=== PATIENT | female | born 1950 | race Caucasian/White ===

== ENCOUNTER 2016-03-27 13:14 | Emergency (ER) | payer MEDICARE, OTHER ==
[2016-03-27] MEDS ORDERED: Thiamine IV* 100 MG, Folic Acid IV* 1 MG, Multiple Vitamin IV ADULT* 10 ML, Magnesium S... IV ONE ×5 (16:29)
[2016-03-27 19:15] LABS: Urine Bacteria Absent (Absent); Urine Bilirubin Negative (Negative); Urine Glucose Negative (Negative); Urine Nitrite Positive (Negative)
[2016-03-27 19:25] LABS: ALT 23 U/L (7-52); AST 76 U/L (13-39); Albumin 3.7 g/dL (3.2-5.2); Alkaline Phosphatase 87 U/L (34-104); Anion Gap 13 mmol/L (2-11); BUN/Creatinine Ratio 19.6 (8-20); Blood Urea Nitrogen 11 mg/dL (6-24); CO2 Carbon Dioxide 24 mmol/L (22-32); Calcium 9.1 mg/dL (8.6-10.3); Chloride 100 mmol/L (101-111); EGFR African American 139.7 (>60); EGFR Non-African American 108.6 (>60); Globulin 2.7 g/dL (2-4); Glucose 110 mg/dL (70-100); Potassium 3.3 mmol/L (3.5-5.0); Sodium 137 mmol/L (133-145); Total Protein 6.4 g/dL (6.4-8.9)
[2016-03-27 19:27] LABS: Benzodiazepine Urine Screen None Detected (None Detect)
[2016-03-27 19:49] LABS: Hematocrit 45 % (35-47); Hemoglobin 15.5 g/dl (12.0-16.0); Mean Corpuscular HGB Conc 34 g/dl (31-36); Mean Corpuscular Hemoglobin 39 pg (27-31); Mean Platelet Volume 8 um3 (7.4-10.4); Red Blood Count 3.99 10^6/ul (4.0-5.4); Red Cell Distribution Width 15 % (10.5-15); White Blood Count 8.1 10^3/ul (3.5-10.8)
[2016-03-27 19:50] LABS: Mean Corpuscular Volume 114 fL (80-97)
[2016-03-27 19:58] LABS: Acetaminophen < 15 mcg/mL; Alcohol 198 mg/dL (<10); Salicylate < 2.50 mg/dL (<30)
[2016-03-27 20:08] LABS: TSH (Thyroid Stimulating Horm) 2.35 mcIU/mL (0.34-5.60)
[2016-03-27] MEDS ORDERED: Acetaminophen TAB* 325 MG PO ONE (21:01)
[2016-03-27] MEDS ORDERED: Ondansetron INJ* 2 MG/ML VIAL IV ONE (21:40)
[2016-03-27] MEDS ORDERED: LORazepam INJ* 2 MG/ML 1 ML VIAL ONE (21:43)
[2016-03-27] MEDS ORDERED: Ondansetron INJ* 2 MG/ML VIAL ONE (21:45)
[2016-03-27] MEDS: LORazepam INJ* 2 MG/ML 1 ML VIAL IV ONE (21:55)
[2016-03-28] MEDS: LORazepam INJ* 2 MG/ML 1 ML VIAL IV ONE (01:32)
[2016-03-28] MEDS ORDERED: NS 0.9% 1000 ML* 1,000 ML IV ONE (04:25)
[2016-03-28] MEDS ORDERED: Ondansetron INJ* 2 MG/ML VIAL IV ONE (04:25)
[2016-03-28] MEDS ORDERED: Nicotine GUM* 2 MG PO PRN (06:44)
[2016-03-28] MEDS ORDERED: Nicotine GUM* 2 MG ONE (06:47)
--- NOTE | 2016-03-28 08:03 | RAD ---
INDICATION: Fall. Right-sided abdominal pain COMPARISON: None TECHNIQUE: Erect and supine views of the abdomen are submitted. FINDINGS: Bones: There are no acute bony findings. There is osteopenia with levoscoliosis. Soft tissues: The soft tissues appear normal. The psoas margins are sharp. Bowel gas pattern: Normal Calcifications: There are aortic calcifications. Other: The lung bases are clear. IMPRESSION: NO ACUTE DIAGNOSTIC FINDINGS.
--- NOTE | 2016-03-28 08:09 | PN ---
Progress Note - Progress Note Note: Checked with Social Service Liaison (Moshe Morales) Tiffany is still getting medical attention and not ready for evaluation to be completed.
[2016-03-28 11:19] VITALS: BP 144/109
--- NOTE | 2016-03-28 12:09 | ED ---
Caryn Juárez Matthew, scribed for Matty Vo MD on 03/27/16 at 1837 . Altered Mental Status - HPI Summary HPI Summary: A 66 y/o female presents to the ED with an altered mental status. She states that she's depressed and would like a mental health evaluation. She also fell 2 feet from her bed this morning. 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 The patient also states that she is sad. Her mother is struggling with alzheimer's disease and her dad is being unhelpful. The patient's dog also a month and a half ago, which has been really effecting her emotionally as she lives alone. - History Of Current Complaint Chief Complaint: ED Stated Complaint: EOTH FALL , MENTAL HEALTH Time Seen by Provider: 03/27/16 16:29 Hx Obtained From: Patient Onset/Duration: Still Present Timing: Constant Severity Initially: Moderate Severity Currently: Moderate Associated Signs And Symptoms: Positive: Recently Depressed - Allergies/Home Medications Allergies/Adverse Reactions: Allergies Allergy/AdvReac Type Severity Reaction Status Date / Time Doxycycline Allergy Intermediate Swelling Verified 12/26/15 21:09 Gabapentin [From Neurontin] Allergy Intermediate Swelling Verified 12/26/15 21: 09 Prednisone Allergy Intermediate Hives Verified 12/26/15 21:09 Home Medications: Home Medications Cholecalciferol [Vitamin D3 Super Strength] 2,000 unit PO DAILY 03/27/16 [ History Confirmed 03/27/16] Magnesium Oxide [Magnesium] 500 mg PO DAILY 03/27/16 [History Confirmed 03/27/16 ] Potassium Chlor TAB* [Klor Con ER TAB*] 20 meq PO BID 03/27/16 [History Confirmed 03/27/16] PMH/Surg Hx/FS Hx/Imm Hx Endocrine/Hematology History: Reports: Hx Anemia Denies: Hx Anticoagulant Therapy, Hx Blood Disorders, Hx Blood Transfusions, Hx Bone Marrow Disease, Hx Diabetes, Hx Systemic Lupus Erythematosus, Hx Sickle Cell Disease, Hx Thyroid Disease, Hx Unexplained Bleeding, Other Endocrine/ Hematological Disorders Cardiovascular History: Reports: Hx Angina, Hx Hypercholesterolemia - hx of, Hx Hypertension, Other Cardiovascular Problems/Disorders - carotid endarterectomy; hx of murmur Denies: Hx Aneurysm, Hx Angioplasty, Hx Auto Implanted Cardiovert Defib, Hx Cardiac Arrest, Hx Cardiomegaly, Hx Congenital Heart Disease, Hx Congestive Heart Failure, Hx Coronary Artery Disease, Hx Deep Vein Thrombosis, Hx Embolism , Hx Hypotension, Hx Pacemaker/ICD, Hx Peripheral Vascular Disease, Hx Rheumatic Fever, Hx Syncope, Hx Valvular Heart Disease Respiratory History: Reports: Hx Chronic Bronchitis, Hx Chronic Obstructive Pulmonary Disease (COPD), Hx Pneumonia, Other Respiratory Problems/Disorders - SMOAKER Denies: Hx Asthma, Hx Cystic Fibrosis, Hx Lung Cancer, Hx Pleural Effusion, Hx Pulmonary Edema, Hx Pulmonary Embolism, Hx Seasonal Allergies, Hx Sleep Apnea GI History: Reports: Hx Gastroesophageal Reflux Disease, Hx Irritable Bowel, Hx Ulcer, Other GI Disorders - adhesions Denies: Hx Cirrhosis, Hx Crohn's Disease, Hx Diverticulosis, Hx Gall Bladder Disease, Hx Gastrointestinal Bleed, Hx Hiatal Hernia, Hx Jaundice, Hx Obstructive Bowel, Hx Ileostomy, Hx Pyloric Stenosis History: Reports: Other Problems/Disorders - hx of UTI Denies: Hx Acute Renal Failure, Hx Benign Prostatic Hyperplasia, Hx Chronic Renal Failure, Hx Dialysis, Hx Kidney Infection, Hx Kidney Stones, Hx Renal Disease Musculoskeletal History: Reports: Hx Arthritis - osteo arthritis, Hx Orthopedic Injury - broken fingers, Other Musculoskeletal History - Past injury to R hand. Denies: Hx Back Problems, Hx Bursitis, Hx Congenital Bone Abnormalities, Hx Fibromyalgia, Hx Gout, Hx Osteoporosis, Hx Scoliosis, Hx Tendonitis Sensory History: Reports: Hx Contacts or Glasses, Hx Vision Problem, Other Sensory Impairments - floaters Denies: Hx Cataracts, Hx Eye Injury, Hx Eye Prosthesis, Hx Glaucoma, Hx Macular Degeneration, Hx Deafness, Hx Hearing Aid, Hx Hearing Problem Opthamlomology History: Reports: Hx Contacts or Glasses, Hx Vision Problem, Other Sensory Impairments - floaters Denies: Hx Cataracts, Hx Eye Injury, Hx Eye Prosthesis, Hx Glaucoma, Hx Macular Degeneration Neurological History: Reports: Hx Headaches - JUST RECENTLY, Hx Seizures Denies: Hx Dementia, Hx Developmental Delay, Hx Migraine, Hx Spinal Cord Injury, Hx Transient Ischemic Attacks (TIA), Other Neuro Impairments/Disorders Psychiatric History: Reports: Hx Anxiety, Hx Depression, Hx Panic Disorder - PTSD, Hx Post Traumatic Stress Disorder, Hx Inpatient Treatment, Hx Community Mental Health Tx, Hx Suicide Attempt, Hx Substance Abuse - ETOH, Other Psychiatric Issues/Disorders Denies: Hx Attention Deficit Hyperactivity Disorder, Hx Eating Disorder, Hx Schizophrenia, Hx Bipolar Disorder, Hx of Violent Episodes Against Others - Surgical History Surgery Procedure, Year, and Place: TONSILECTOMY ; APPENDECTOMY; X2 ; TUBAL LIGATION; CAROTID ENDERECTOMY (NO STENTINGS) Hx Anesthesia Reactions: Yes - EATHER CAUSED VOMITING - Immunization History Date of Tetanus Vaccine: PT STATES UNSURE Date of Influenza Vaccine: NONE Infectious Disease History: Unable to Obtain/Confirm Infectious Disease History: Denies: Hx Clostridium Difficile, Hx Hepatitis, Hx Human Immunodeficiency Virus (HIV), Hx Shingles, Hx Tuberculosis, Traveled Outside the [place] in Last 30 Days - Family History Known Family History: Positive: Other - father - colon ca, h/o ETOH abuse; mom- alzheimer's dz - Social History Alcohol Use: Daily Alcohol Amount: 3+ glasses 5-6x wk Hx Substance Use: No Substance Use Type: Reports: None Substance Use Comment - Amount & Last Used: pt aware of mental & physical risks of etoh, not willing/ready to change Hx Tobacco Use: Yes Smoking Status (MU): Heavy Every Day Tobacco Smoker Type: Cigarettes Have You Smoked in the Last Year: Yes Review of Systems Constitutional: Negative Eyes: Negative ENT: Negative Cardiovascular: Negative Respiratory: Negative Gastrointestinal: Negative Genitourinary: Negative Musculoskeletal: Negative Skin: Negative Neurological: Negative Positive: Depressed All Other Systems Reviewed And Are Negative: Yes Physical Exam Triage Information Reviewed: Yes Vital Signs On Initial Exam: Initial Vitals Temp Pulse Resp BP Pulse Ox 98.3 F 86 16 124/63 95 03/27/16 13:32 03/27/16 13:32 03/27/16 13:32 03/27/16 13:32 03/27/16 13:32 Vital Signs Reviewed: Yes Appearance: Positive: Well-Appearing, No Pain Distress Skin: Positive: Warm, Skin Color Reflects Adequate Perfusion, Dry Head/Face: Positive: Normal Head/Face Inspection Eyes: Positive: EOMI, SIMBA ENT: Positive: Normal ENT inspection Neck: Positive: Supple, Nontender Respiratory/Lung Sounds: Positive: Clear to Auscultation, Breath Sounds Present Cardiovascular: Positive: RRR Abdomen Description: Positive: Nontender, Soft Bowel Sounds: Positive: Present Musculoskeletal: Positive: Normal, Strength/ROM Intact Neurological: Positive: Normal, Sensory/Motor Intact, Alert, Oriented to Person Place, Time Diagnostics - Vital Signs Vital Signs Temp Pulse Resp BP Pulse Ox 03/27/16 13:32 98.3 F 86 16 124/63 95 - Laboratory Lab Results: Lab Results 01/03/27/16 03/27/16 Range/Units 18:52 18:52 18:52 WBC 8.1 (3.5-10.8) 10^3/ul RBC 3.99 L (4.0-5.4) 10^6/ul Hgb 15.5 (12.0-16.0) g/dl Hct 45 (35-47) % MCV 114 H (80-97) fL MCH 39 H (27-31) pg MCHC 34 (31-36) g/dl RDW 15 (10.5-15) % Plt Count 124 L (150-450) 10^3/ul MPV 8 (7.4-10.4) um3 Neut % (Auto) 73.3 (38-83) % Lymph % (Auto) 17.8 L (25-47) % [place] % (Auto) 6.9 (1-9) % Eos % (Auto) 1.3 (0-6) % Baso % (Auto) 0.7 (0-2) % Absolute Neuts (auto) 5.9 (1.5-7.7) 10^3/ul Absolute Lymphs (auto) 1.4 (1.0-4.8) 10^3/ul Absolute Monos (auto) 0.6 (0-0.8) 10^3/ul Absolute Eos (auto) 0.1 (0-0.6) 10^3/ul Absolute Basos (auto) 0.1 (0-0.2) 10^3/ul Absolute Nucleated RBC 0 10^3/ul Nucleated RBC % 0 Sodium 137 (133-145) mmol/L Potassium 3.3 L (3.5-5.0) mmol/L Chloride 100 L (101-111) mmol/L Carbon Dioxide 24 (22-32) mmol/L Anion Gap 13 H (2-11) mmol/L BUN 11 (6-24) mg/dL Creatinine 0.56 (0.51-0.95) mg/dL Est GFR ( Amer) 139.7 (>60) Est GFR (Non-Af Amer) 108.6 (>60) BUN/Creatinine Ratio 19.6 (8-20) Glucose 110 H (70-100) mg/dL Calcium 9.1 (8.6-10.3) mg/dL Total Bilirubin 0.60 (0.2-1.0) mg/dL AST 76 H (13-39) U/L ALT 23 (7-52) U/L Alkaline Phosphatase 87 (34-104) U/L Total Protein 6.4 (6.4-8.9) g/dL Albumin 3.7 (3.2-5.2) g/dL Globulin 2.7 (2-4) g/dL Albumin/Globulin Ratio 1.4 (1-3) TSH 2.35 (0.34-5.60) mcIU/mL Urine Color Yellow Urine Appearance Cloudy Urine pH 6.0 (5-9) Ur Specific [place] 1.015 (1.010-1.030) Urine Protein Negative (Negative) Urine Ketones Trace H (Negative) Urine Blood 1+ H (Negative) Urine Nitrate Positive H (Negative) Urine Bilirubin Negative (Negative) Urine Urobilinogen Negative (Negative) Ur Leukocyte Esterase 2+ H (Negative) Urine WBC (Auto) 2+(11-20/hpf) H (Absent) Urine RBC (Auto) Trace(0-2/hpf) (Absent) Ur Squamous Epith Cells Present H (Absent) Urine Bacteria Absent (Absent) Urine Glucose Negative (Negative) Salicylates < 2.50 (<30) mg/dL Urine Opiates Screen (None Detect) Acetaminophen < 15 mcg/mL Ur Barbiturates Screen (None Detect) Ur Phencyclidine Scrn (None Detect) Ur Amphetamines Screen (None Detect) U Benzodiazepines Scrn (None Detect) Urine Cocaine Screen (None Detect) U Cannabinoids Screen (None Detect) Serum Alcohol 198 H (<10) mg/dL 03/27/16 Range/Units 18:52 WBC (3.5-10.8) 10^3/ul RBC (4.0-5.4) 10^6/ul Hgb (12.0-16.0) g/dl Hct (35-47) % MCV (80-97) fL MCH (27-31) pg MCHC (31-36) g/dl RDW (10.5-15) % Plt Count (150-450) 10^3/ul MPV (7.4-10.4) um3 Neut % (Auto) (38-83) % Lymph % (Auto) (25-47) % [place] % (Auto) (1-9) % Eos % (Auto) (0-6) % Baso % (Auto) (0-2) % Absolute Neuts (auto) (1.5-7.7) 10^3/ul Absolute Lymphs (auto) (1.0-4.8) 10^3/ul Absolute Monos (auto) (0-0.8) 10^3/ul Absolute Eos (auto) (0-0.6) 10^3/ul Absolute Basos (auto) (0-0.2) 10^3/ul Absolute Nucleated RBC 10^3/ul Nucleated RBC % Sodium (133-145) mmol/L Potassium (3.5-5.0) mmol/L Chloride (101-111) mmol/L Carbon Dioxide (22-32) mmol/L Anion Gap (2-11) mmol/L BUN (6-24) mg/dL Creatinine (0.51-0.95) mg/dL Est GFR ( Amer) (>60) Est GFR (Non-Af Amer) (>60) BUN/Creatinine Ratio (8-20) Glucose (70-100) mg/dL Calcium (8.6-10.3) mg/dL Total Bilirubin (0.2-1.0) mg/dL AST (13-39) U/L ALT (7-52) U/L Alkaline Phosphatase (34-104) U/L Total Protein (6.4-8.9) g/dL Albumin (3.2-5.2) g/dL Globulin (2-4) g/dL Albumin/Globulin Ratio (1-3) TSH (0.34-5.60) mcIU/mL Urine Color Urine Appearance Urine pH (5-9) Ur Specific [place] (1.010-1.030) Urine Protein (Negative) Urine Ketones (Negative) Urine Blood (Negative) Urine Nitrate (Negative) Urine Bilirubin (Negative) Urine Urobilinogen (Negative) Ur Leukocyte Esterase (Negative) Urine WBC (Auto) (Absent) Urine RBC (Auto) (Absent) Ur Squamous Epith Cells (Absent) Urine Bacteria (Absent) Urine Glucose (Negative) Salicylates (<30) mg/dL Urine Opiates Screen None detected (None Detect) Acetaminophen mcg/mL Ur Barbiturates Screen None detected (None Detect) Ur Phencyclidine Scrn None detected (None Detect) Ur Amphetamines Screen None detected (None Detect) U Benzodiazepines Scrn None detected (None Detect) Urine Cocaine Screen None detected (None Detect) U Cannabinoids Screen None detected (None Detect) Serum Alcohol (<10) mg/dL Result Diagrams: 03/27/16 18:52 03/27/16 18:52 Lab Statement: Any lab studies that have been ordered have been reviewed, and results considered in the medical decision making process. Altered Mental Statu Course/Dx - Course Course Of Treatment: Tiffany Bland had no C/O when I saw her aside from being sad a lot recently and wanting to speak with a MHE. She had a labile affect and was visibly intoxicated but was cooperative. She was sober and resting cofortable at change of shift and awaiting MHE. - Diagnoses Discharge Diagnoses: Alcohol intoxication, Depression Discharge - Discharge Plan Condition: Stable Disposition: HOME Referrals: Dorcas Chan COVER ASSEMBLER [Primary Care Provider] - The documentation as recorded by the Caryn juan Matthew accurately reflects the service I personally performed and the decisions made by me, Matty Vo MD.
== END 2016-03-28 13:21 | disposition home or self-care (01) ==
LOC: ED 13:14
DX: F10.129 Alcohol abuse with intoxication, unspecified (principal); F32.9 Major depressive disorder, single episode, unspecified; F17.210 Nicotine dependence, cigarettes, uncomplicated; I20.9 Angina pectoris, unspecified; E78.00 Pure hypercholesterolemia, unspecified; I10 Essential (primary) hypertension; J44.9 Chronic obstructive pulmonary disease, unspecified; K21.9 Gastro-esophageal reflux disease without esophagitis; Z60.2 Problems related to living alone
CPT/HCPCS: 36415; 74020; 80053; 80307; 80320; 80329; 81003; 81015; 84443; 85025; 87077; 87086; 87186; 96360; 96374; 96375; 96376; 99284; A9270-GY; G0480; J2060; J2405; J3411; J3475; J7060

== ENCOUNTER 2016-03-29 11:53 | Emergency (ER) | payer MEDICARE, OTHER ==
[2016-03-29 13:04] LABS: Hematocrit 41 % (35-47); Hemoglobin 14.2 g/dl (12.0-16.0); Mean Corpuscular HGB Conc 35 g/dl (31-36); Mean Corpuscular Hemoglobin 40 pg (27-31); Mean Platelet Volume 8 um3 (7.4-10.4); Red Cell Distribution Width 15 % (10.5-15); White Blood Count 8.9 10^3/ul (3.5-10.8)
[2016-03-29 13:07] LABS: Comments Flag Yes
[2016-03-29 13:08] LABS: Mean Corpuscular Volume 113 fL (80-97)
[2016-03-29 13:19] LABS: Albumin 3.4 g/dL (3.2-5.2); BUN/Creatinine Ratio 11.6 (8-20); EGFR African American 189.5 (>60); EGFR Non-African American 147.4 (>60); Globulin 2.3 g/dL (2-4); Total Bilirubin 1.6 mg/dL (0.2-1.0); Total Protein 5.7 g/dL (6.4-8.9)
--- NOTE | 2016-03-29 14:05 | ED ---
GI/ HPI - HPI Summary HPI Summary: Pt here w/ pelvic pain. Was seen yesterday and labs indicate UTI, cx confirmed e.coli > 100,000 - she has not started tx at this time. She is also complaining of blood in urine and rectally. She's not sure if she's bleeding rectally but saw blood in her undergarment and in the toilet and on toilet paper. She reports eating a hamburger last night and wondering if it cut her on the way out ? Denies rectal pain at this time. H/o diarrhea last week and this sometimes triggers rectal bleeding for her. No known h/o hemorrhoids, colitis. No bruising or bleeding elsewhere. Denies fever, chills, nausea, vomiting, chest pain, SOB. - History of Current Complaint Chief Complaint: ED Time Seen by Provider: 03/29/16 12:15 Stated Complaint: PELVIC PAIN Hx Obtained From: Patient Pain Intensity: 5 - Additional Pertinent History Primary Care Physician: BACILIO - Allergy/Home Medications Allergies/Adverse Reactions: Allergies Allergy/AdvReac Type Severity Reaction Status Date / Time Doxycycline Allergy Intermediate Swelling Verified 12/26/15 21:09 Gabapentin [From Neurontin] Allergy Intermediate Swelling Verified 12/26/15 21: 09 Prednisone Allergy Intermediate Hives Verified 12/26/15 21:09 PMH/Surg Hx/FS Hx/Imm Hx Previously Healthy: No Endocrine/Hematology History: Reports: Hx Anemia Denies: Hx Anticoagulant Therapy, Hx Blood Disorders, Hx Blood Transfusions, Hx Bone Marrow Disease, Hx Diabetes, Hx Systemic Lupus Erythematosus, Hx Sickle Cell Disease, Hx Thyroid Disease, Hx Unexplained Bleeding, Other Endocrine/ Hematological Disorders Cardiovascular History: Reports: Hx Angina, Hx Hypercholesterolemia - hx of, Hx Hypertension, Other Cardiovascular Problems/Disorders - carotid endarterectomy; hx of murmur Denies: Hx Aneurysm, Hx Angioplasty, Hx Auto Implanted Cardiovert Defib, Hx Cardiac Arrest, Hx Cardiomegaly, Hx Congenital Heart Disease, Hx Congestive Heart Failure, Hx Coronary Artery Disease, Hx Deep Vein Thrombosis, Hx Embolism , Hx Hypotension, Hx Pacemaker/ICD, Hx Peripheral Vascular Disease, Hx Rheumatic Fever, Hx Syncope, Hx Valvular Heart Disease Respiratory History: Reports: Hx Chronic Bronchitis, Hx Chronic Obstructive Pulmonary Disease (COPD), Hx Pneumonia, Other Respiratory Problems/Disorders - SMOAKER Denies: Hx Asthma, Hx Cystic Fibrosis, Hx Lung Cancer, Hx Pleural Effusion, Hx Pulmonary Edema, Hx Pulmonary Embolism, Hx Seasonal Allergies, Hx Sleep Apnea GI History: Reports: Hx Gastroesophageal Reflux Disease, Hx Irritable Bowel, Hx Ulcer, Other GI Disorders - adhesions Denies: Hx Cirrhosis, Hx Crohn's Disease, Hx Diverticulosis, Hx Gall Bladder Disease, Hx Gastrointestinal Bleed, Hx Hiatal Hernia, Hx Jaundice, Hx Obstructive Bowel, Hx Ileostomy, Hx Pyloric Stenosis History: Reports: Other Problems/Disorders - hx of UTI Denies: Hx Acute Renal Failure, Hx Benign Prostatic Hyperplasia, Hx Chronic Renal Failure, Hx Dialysis, Hx Kidney Infection, Hx Kidney Stones, Hx Renal Disease Musculoskeletal History: Reports: Hx Arthritis - osteo arthritis, Hx Orthopedic Injury - broken fingers, Other Musculoskeletal History - Past injury to R hand. Denies: Hx Back Problems, Hx Bursitis, Hx Congenital Bone Abnormalities, Hx Fibromyalgia, Hx Gout, Hx Osteoporosis, Hx Scoliosis, Hx Tendonitis Sensory History: Reports: Hx Contacts or Glasses, Hx Vision Problem, Other Sensory Impairments - floaters Denies: Hx Cataracts, Hx Eye Injury, Hx Eye Prosthesis, Hx Glaucoma, Hx Macular Degeneration, Hx Deafness, Hx Hearing Aid, Hx Hearing Problem Opthamlomology History: Reports: Hx Contacts or Glasses, Hx Vision Problem, Other Sensory Impairments - floaters Denies: Hx Cataracts, Hx Eye Injury, Hx Eye Prosthesis, Hx Glaucoma, Hx Macular Degeneration Neurological History: Reports: Hx Headaches - JUST RECENTLY, Hx Seizures Denies: Hx Dementia, Hx Developmental Delay, Hx Migraine, Hx Spinal Cord Injury, Hx Transient Ischemic Attacks (TIA), Other Neuro Impairments/Disorders Psychiatric History: Reports: Hx Anxiety, Hx Depression, Hx Panic Disorder - PTSD, Hx Post Traumatic Stress Disorder, Hx Inpatient Treatment, Hx Community Mental Health Tx, Hx Suicide Attempt, Hx Substance Abuse - ETOH, Other Psychiatric Issues/Disorders Denies: Hx Attention Deficit Hyperactivity Disorder, Hx Eating Disorder, Hx Schizophrenia, Hx Bipolar Disorder, Hx of Violent Episodes Against Others - Surgical History Surgery Procedure, Year, and Place: TONSILECTOMY ; APPENDECTOMY; X2 ; TUBAL LIGATION; CAROTID ENDERECTOMY (NO STENTINGS) Hx Anesthesia Reactions: Yes - EATHER CAUSED VOMITING - Immunization History Date of Tetanus Vaccine: PT STATES UNSURE Date of Influenza Vaccine: NONE Infectious Disease History: No Infectious Disease History: Denies: Hx Clostridium Difficile, Hx Hepatitis, Hx Human Immunodeficiency Virus (HIV), Hx Shingles, Hx Tuberculosis, Traveled Outside the [place] in Last 30 Days - Family History Known Family History: Positive: None, Other - father - colon ca, h/o ETOH abuse ; mom- alzheimer's dz - Social History Alcohol Use: Daily Alcohol Amount: 3+ glasses 5-6x wk Hx Substance Use: No Substance Use Type: Reports: None Substance Use Comment - Amount & Last Used: pt aware of mental & physical risks of etoh, not willing/ready to change Hx Tobacco Use: Yes Smoking Status (MU): Heavy Every Day Tobacco Smoker Type: Cigarettes Have You Smoked in the Last Year: Yes Review of Systems Negative: Fever, Chills Negative: Chest Pain Negative: Shortness Of Breath Gastrointestinal: Other - see HPI Positive: see HPI Negative: Bruising Negative: Headache Positive: Anxious All Other Systems Reviewed And Are Negative: Yes Physical Exam Triage Information Reviewed: Yes Vital Signs On Initial Exam: Initial Vitals Temp Pulse Resp BP 98.6 F 99 18 120/78 03/29/16 12:04 03/29/16 12:04 03/29/16 12:04 03/29/16 12:04 Vital Signs Reviewed: Yes Appearance: Positive: Thin - disheveled, poor hygiene, concerned but pleasant, cooperative Skin: Positive: Warm, Dry Head/Face: Positive: Normal Head/Face Inspection Eyes: Positive: Normal, EOMI, Conjunctiva Clear - anicteric sclera ENT: Positive: Hearing grossly normal Respiratory/Lung Sounds: Positive: Clear to Auscultation, Breath Sounds Present Cardiovascular: Positive: Normal, RRR Abdomen Description: Positive: Soft, Other: - prepubetal TTP; wearing a protective undergarment - soiled; no bea bleeding upon observation and w/ LEATHA Bowel Sounds: Positive: Present Pelvic Exam: Positive: external exam normal - no bea bleeding Musculoskeletal: Positive: Normal, Strength/ROM Intact Neurological: Positive: Alert, Oriented to Person Place, Time Psychiatric: Positive: Other - concerned, anxious Diagnostics - Vital Signs Vital Signs Temp Pulse Resp BP Pulse Ox 03/29/16 12:06 98.6 F 99 18 120/78 95 03/29/16 12:04 98.6 F 99 18 120/78 - Laboratory Lab Results: Lab Results 03/29/16 03/29/16 03/29/16 Range/Units 12:50 12:50 12:50 WBC 8.9 (3.5-10.8) 10^3/ul RBC 3.60 L (4.0-5.4) 10^6/ul Hgb 14.2 (12.0-16.0) g/dl Hct 41 (35-47) % MCV 113 H (80-97) fL MCH 40 H (27-31) pg MCHC 35 (31-36) g/dl RDW 15 (10.5-15) % Plt Count 103 L (150-450) 10^3/ul MPV 8 (7.4-10.4) um3 Neut % (Auto) 74.8 (38-83) % Lymph % (Auto) 14.6 L (25-47) % [place] % (Auto) 9.0 (1-9) % Eos % (Auto) 1.0 (0-6) % Baso % (Auto) 0.6 (0-2) % Absolute Neuts (auto) 6.7 (1.5-7.7) 10^3/ul Absolute Lymphs (auto) 1.3 (1.0-4.8) 10^3/ul Absolute Monos (auto) 0.8 (0-0.8) 10^3/ul Absolute Eos (auto) 0.1 (0-0.6) 10^3/ul Absolute Basos (auto) 0.1 (0-0.2) 10^3/ul Absolute Nucleated RBC 0.02 10^3/ul Nucleated RBC % 0.2 INR (Anticoag Therapy) 1.03 (0.89-1.11) APTT 33.0 (26.0-36.3) seconds Sodium 130 L (133-145) mmol/L Potassium 3.0 L (3.5-5.0) mmol/L Chloride 97 L (101-111) mmol/L Carbon Dioxide 27 (22-32) mmol/L Anion Gap 6 (2-11) mmol/L BUN 5 L (6-24) mg/dL Creatinine 0.43 L (0.51-0.95) mg/dL Est GFR ( Amer) 189.5 (>60) Est GFR (Non-Af Amer) 147.4 (>60) BUN/Creatinine Ratio 11.6 (8-20) Glucose 93 (70-100) mg/dL Calcium 9.0 (8.6-10.3) mg/dL Total Bilirubin 1.60 H (0.2-1.0) mg/dL AST 28 (13-39) U/L ALT 14 (7-52) U/L Alkaline Phosphatase 75 (34-104) U/L Total Protein 5.7 L (6.4-8.9) g/dL Albumin 3.4 (3.2-5.2) g/dL Globulin 2.3 (2-4) g/dL Albumin/Globulin Ratio 1.5 (1-3) Result Diagrams: 03/29/16 12:50 03/29/16 12:50 Lab Statement: Any lab studies that have been ordered have been reviewed, and results considered in the medical decision making process. GIGU Course/Dx - Course Course Of Treatment: Pt presents w/ pelvic pain - she has an e.coli UTI. Started pyridium and waited on CT ab/pelvis to decide anbx regimen as pt stated she gets loose stools with cipro. If she has colitis, may benefit from cipro which would also cover e. coli UTI. If no colitis, would rx bactrim as no sensitivities have returned yet however this historically has good coverage against e. coli UTI's. Labs and vital signs appear stable and do not indicate an acute GI bleed at this time. CT ab/pelvis reveals colitis so pt was started on cipro. Flagyl is another option however pt has ETOH abuse. She has been without a drink for many hours waiting here so ativan was provided to prevent withdraw. She agrees with plan and will f/u w/ her PCP to further investigate cause of colitis. Reviewed danger s/sx of when to return to ED - pt agrees w/ plan. - Diagnoses Provider Diagnoses: E. coli UTI, Colitis Discharge - Discharge Plan Condition: Stable Disposition: HOME Prescriptions: Ciprofloxacin TAB* [Cipro Tab*] 500 mg PO BID #14 tab Patient Education Materials: Colitis (ED), Urinary Tract Infection in Women (ED ) Referrals: Dorcas Chan, COMMUNITY INTEGRATION SPECIALIST [Primary Care Provider] - Additional Instructions: Take antibiotic twice a day for 7 days with cover for UTI and colitis Use probiotic in between doses Follow up with primary within 5 days Return to ED if develop fever or any new or worsening symptoms
[2016-03-29] MEDS ORDERED: Iohexol 300* (CONTRAST) 10 ML SDV IV ONE (15:36)
[2016-03-29] MEDS ORDERED: Phenazopyridine TAB* 100 MG PO ONE (15:44)
[2016-03-29] MEDS ORDERED: NS 0.9% 1000 ML* 1,000 ML IV ONE (17:07)
--- NOTE | 2016-03-29 17:34 | RAD ---
INDICATION: Rectal bleeding, diarrhea and pelvic pain. COMPARISON: Comparison is made with a prior CT of the abdomen and pelvis from July 05, 2013. TECHNIQUE: A CT scan of the abdomen and pelvis was performed with intravenous and oral contrast following intravenous injection of 72 ml of Omnipaque 300 nonionic contrast. Contiguous axial sections were obtained from the lung bases through the symphysis pubis. Images were reconstructed in the coronal and sagittal planes. FINDINGS: The lung bases are clear. No pleural effusion is present. The liver is normal in size. No significant focal hepatic abnormality is seen although there is a mildly nodular contour suggesting the possibility of cirrhosis. No calcified gallstones are seen. The spleen is within normal limits in size without focal abnormality. The pancreas appears to be within normal limits. The kidneys and adrenal glands are normal in size. No hydronephrosis is seen. No significant focal renal abnormality is seen. The aorta is normal in caliber with severe calcific plaque present. No significant enlarged retroperitoneal lymph nodes are seen. The stomach, small and large bowel appear nondistended. The patient is status post appendectomy by history. There is diffuse thickening of the wall of the entire colon. This is most prominent in the descending and sigmoid colon and would be most consistent with colitis. Etiologies to consider would include infectious, pseudomembranous, inflammatory bowel disease and less likely ischemic colitis. No abscess is seen. The uterus is anteverted and normal in size. No free intraperitoneal air or fluid is seen. No significant focal osseous abnormality is seen. IMPRESSION: 1. DIFFUSE THICKENING OF THE WALL OF THE COLON MOST CONSISTENT WITH COLITIS. 2. THE LIVER HAS A MILDLY NODULAR CONTOUR SUGGESTIVE OF CIRRHOSIS.
[2016-03-29] MEDS ORDERED: LORazepam TAB(*) 1 MG PO ONE (17:52)
[2016-03-29 18:31] VITALS: BP 145/78
--- NOTE | 2016-03-30 07:55 | PN ---
Progress Note - Progress Note Note: Patient discharged on cipro which is appropriate as per cultures.
== END 2016-03-29 18:27 | disposition home or self-care (01) ==
LOC: ED 11:53
DX: N39.0 Urinary tract infection, site not specified (principal); K52.9 Noninfective gastroenteritis and colitis, unspecified; R10.2 Pelvic and perineal pain
CPT/HCPCS: 36415; 74177; 80053; 82272; 85025; 85610; 85730; 99282; A9270-GY; Q9967

== ENCOUNTER 2016-04-19 20:22 | Emergency (ER) | payer MEDICARE, OTHER ==
[2016-04-19] MEDS ORDERED: LORazepam TAB(*) 1 MG PO ONE (22:44)
[2016-04-19] MEDS ORDERED: Albuterol/Ipratropium NEB.SOL* Albuterol 2.5 MG/Ipratropium 0.5 MG 3 ML INH ONE (23:02)
[2016-04-19 23:10] LABS: Urine Bacteria Absent (Absent); Urine Bilirubin Negative (Negative); Urine Glucose Negative (Negative); Urine Nitrite Negative (Negative)
[2016-04-19] MEDS ORDERED: Albuterol/Ipratropium NEB.SOL* Albuterol 2.5 MG/Ipratropium 0.5 MG 3 ML ONE (23:12)
[2016-04-19 23:37] LABS: Benzodiazepine Urine Screen None Detected (None Detect)
[2016-04-19 23:57] LABS: Comments Flag Yes; Hematocrit 41 % (35-47); Hemoglobin 14.1 g/dl (12.0-16.0); Mean Corpuscular HGB Conc 34 g/dl (31-36); Mean Corpuscular Hemoglobin 39 pg (27-31); Mean Platelet Volume 8 um3 (7.4-10.4); Red Blood Count 3.57 10^6/ul (4.0-5.4); Red Cell Distribution Width 15 % (10.5-15); White Blood Count 6.3 10^3/ul (3.5-10.8)
[2016-04-19 23:58] LABS: Mean Corpuscular Volume 114 fL (80-97)
[2016-04-20 00:13] LABS: ALT 20 U/L (7-52); AST 54 U/L (13-39); Acetaminophen < 15 mcg/mL; Albumin 3.8 g/dL (3.2-5.2); Alcohol 361 mg/dL (<10); Alkaline Phosphatase 86 U/L (34-104); Anion Gap 9 mmol/L (2-11); Blood Urea Nitrogen 6 mg/dL (6-24); CO2 Carbon Dioxide 25 mmol/L (22-32); Calcium 8.8 mg/dL (8.6-10.3); Chloride 100 mmol/L (101-111); EGFR Non-African American 160.2 (>60); Globulin 2.7 g/dL (2-4); Glucose 115 mg/dL (70-100); Potassium 3.1 mmol/L (3.5-5.0); Salicylate < 2.50 mg/dL (<30); Sodium 134 mmol/L (133-145); Total Protein 6.5 g/dL (6.4-8.9)
[2016-04-20 00:22] LABS: TSH (Thyroid Stimulating Horm) 6.89 mcIU/mL (0.34-5.60)
--- NOTE | 2016-04-20 00:33 | ED ---
Anthony Juárez Billy, scribed for Milind Stein MD on 04/19/16 at 2151 . Complex/Multi-Sys Presentation - HPI Summary HPI Summary: Patient is a 66 year-old female BIBA to [facility] after she was found on the floor, bleeding from her nose. Nursing triage note indicates that the patient was brought in for EtOH intoxication. Here in the ED, patient complains of left rib pain and SOB. Patient has a history of COPD. She also states that she had a prior fall 4 days ago and impacted her nose, but did not visit the ED at that time. - History Of Current Complaint Chief Complaint: EDSubstanceAbuse Time Seen by Provider: 04/19/16 20:36 Hx Obtained From: Patient Onset/Duration: Gradual Onset, Lasting Hours, Still Present Timing: Constant Severity Currently: Moderate Severity Initially: Moderate Location: Pain At: - left rib pain, nose pain Aggravating Factor(s): n/a Alleviating Factor(s): n/a Associated Signs And Symptoms: Positive: SOB, Other - EtOH - Allergies/Home Medications Allergies/Adverse Reactions: Allergies Allergy/AdvReac Type Severity Reaction Status Date / Time Doxycycline Allergy Intermediate Swelling Verified 12/26/15 21:09 Gabapentin [From Neurontin] Allergy Intermediate Swelling Verified 12/26/15 21: 09 Prednisone Allergy Intermediate Hives Verified 12/26/15 21:09 PMH/Surg Hx/FS Hx/Imm Hx Endocrine/Hematology History: Reports: Hx Anemia Denies: Hx Anticoagulant Therapy, Hx Blood Disorders, Hx Blood Transfusions, Hx Bone Marrow Disease, Hx Diabetes, Hx Systemic Lupus Erythematosus, Hx Sickle Cell Disease, Hx Thyroid Disease, Hx Unexplained Bleeding, Other Endocrine/ Hematological Disorders Cardiovascular History: Reports: Hx Angina, Hx Hypercholesterolemia - hx of, Hx Hypertension, Other Cardiovascular Problems/Disorders - carotid endarterectomy; hx of murmur Denies: Hx Aneurysm, Hx Angioplasty, Hx Auto Implanted Cardiovert Defib, Hx Cardiac Arrest, Hx Cardiomegaly, Hx Congenital Heart Disease, Hx Congestive Heart Failure, Hx Coronary Artery Disease, Hx Deep Vein Thrombosis, Hx Embolism , Hx Hypotension, Hx Pacemaker/ICD, Hx Peripheral Vascular Disease, Hx Rheumatic Fever, Hx Syncope, Hx Valvular Heart Disease Respiratory History: Reports: Hx Chronic Bronchitis, Hx Chronic Obstructive Pulmonary Disease (COPD), Hx Pneumonia, Other Respiratory Problems/Disorders - SMOAKER Denies: Hx Asthma, Hx Cystic Fibrosis, Hx Lung Cancer, Hx Pleural Effusion, Hx Pulmonary Edema, Hx Pulmonary Embolism, Hx Seasonal Allergies, Hx Sleep Apnea GI History: Reports: Hx Gastroesophageal Reflux Disease, Hx Irritable Bowel, Hx Ulcer, Other GI Disorders - adhesions Denies: Hx Cirrhosis, Hx Crohn's Disease, Hx Diverticulosis, Hx Gall Bladder Disease, Hx Gastrointestinal Bleed, Hx Hiatal Hernia, Hx Jaundice, Hx Obstructive Bowel, Hx Ileostomy, Hx Pyloric Stenosis History: Reports: Other Problems/Disorders - hx of UTI Denies: Hx Acute Renal Failure, Hx Benign Prostatic Hyperplasia, Hx Chronic Renal Failure, Hx Dialysis, Hx Kidney Infection, Hx Kidney Stones, Hx Renal Disease Musculoskeletal History: Reports: Hx Arthritis - osteo arthritis, Hx Orthopedic Injury - broken fingers, Other Musculoskeletal History - Past injury to R hand. Denies: Hx Back Problems, Hx Bursitis, Hx Congenital Bone Abnormalities, Hx Fibromyalgia, Hx Gout, Hx Osteoporosis, Hx Scoliosis, Hx Tendonitis Sensory History: Reports: Hx Contacts or Glasses, Hx Vision Problem, Other Sensory Impairments - floaters Denies: Hx Cataracts, Hx Eye Injury, Hx Eye Prosthesis, Hx Glaucoma, Hx Macular Degeneration, Hx Deafness, Hx Hearing Aid, Hx Hearing Problem Opthamlomology History: Reports: Hx Contacts or Glasses, Hx Vision Problem, Other Sensory Impairments - floaters Denies: Hx Cataracts, Hx Eye Injury, Hx Eye Prosthesis, Hx Glaucoma, Hx Macular Degeneration Neurological History: Reports: Hx Headaches - JUST RECENTLY, Hx Seizures Denies: Hx Dementia, Hx Developmental Delay, Hx Migraine, Hx Spinal Cord Injury, Hx Transient Ischemic Attacks (TIA), Other Neuro Impairments/Disorders Psychiatric History: Reports: Hx Anxiety, Hx Depression, Hx Panic Disorder - PTSD, Hx Post Traumatic Stress Disorder, Hx Inpatient Treatment, Hx Community Mental Health Tx, Hx Suicide Attempt, Hx Substance Abuse - ETOH, Other Psychiatric Issues/Disorders Denies: Hx Attention Deficit Hyperactivity Disorder, Hx Eating Disorder, Hx Schizophrenia, Hx Bipolar Disorder, Hx of Violent Episodes Against Others - Surgical History Surgery Procedure, Year, and Place: TONSILECTOMY ; APPENDECTOMY; X2 ; TUBAL LIGATION; CAROTID ENDERECTOMY (NO STENTINGS) Hx Anesthesia Reactions: Yes - EATHER CAUSED VOMITING - Immunization History Date of Tetanus Vaccine: PT STATES UNSURE Date of Influenza Vaccine: NONE Infectious Disease History: No Infectious Disease History: Denies: Hx Clostridium Difficile, Hx Hepatitis, Hx Human Immunodeficiency Virus (HIV), Hx Shingles, Hx Tuberculosis, Traveled Outside the [place] in Last 30 Days - Family History Known Family History: Positive: Other - father - colon ca, h/o ETOH abuse; mom- alzheimer's dz - Social History Alcohol Use: Daily Alcohol Amount: 3+ glasses 5-6x wk Hx Substance Use: No Substance Use Type: Reports: None Substance Use Comment - Amount & Last Used: pt aware of mental & physical risks of etoh, not willing/ready to change Hx Tobacco Use: Yes Smoking Status (MU): Heavy Every Day Tobacco Smoker Type: Cigarettes Have You Smoked in the Last Year: Yes Review of Systems Positive: Other - Nose pain s/p fall 4 days ago Positive: Shortness Of Breath Positive: Other - left rib pain Neurological: Other - EtOH intoxication All Other Systems Reviewed And Are Negative: Yes Physical Exam Triage Information Reviewed: Yes Vital Signs On Initial Exam: Initial Vitals Temp Pulse Resp BP Pulse Ox 97.2 F 88 14 89/54 92 04/19/16 21:04 04/19/16 21:04 04/19/16 21:04 04/19/16 21:04 04/19/16 21:04 Vital Signs Reviewed: Yes Appearance: Positive: Well-Appearing, No Pain Distress Skin: Positive: Warm, Skin Color Reflects Adequate Perfusion, Dry Head/Face: Positive: Other - Eschar on the bridge of the nose without active bleeding at this time Neck: Positive: Supple Respiratory/Lung Sounds: Positive: Rhonchi - Bilaterally Cardiovascular: Positive: RRR Abdomen Description: Positive: Nontender, Soft Musculoskeletal: Positive: Normal, Strength/ROM Intact Neurological: Positive: Sensory/Motor Intact, Alert, Oriented to Person Place, Time, Other - Stuporous, verbally responsive Psychiatric: Positive: Affect/Mood Appropriate Diagnostics - Vital Signs Vital Signs Temp Pulse Resp BP Pulse Ox 04/19/16 21:04 97.2 F 88 14 89/54 92 - Laboratory Lab Results: Lab Results 04/19/16 04/19/16 04/19/16 Range/Units 21:45 21:45 23:43 WBC 6.3 (3.5-10.8) 10^3/ul RBC 3.57 L (4.0-5.4) 10^6/ul Hgb 14.1 (12.0-16.0) g/dl Hct 41 (35-47) % MCV 114 H (80-97) fL MCH 39 H (27-31) pg MCHC 34 (31-36) g/dl RDW 15 (10.5-15) % Plt Count 114 L (150-450) 10^3/ul MPV 8 (7.4-10.4) um3 Neut % (Auto) 44.2 (38-83) % Lymph % (Auto) 44.3 (25-47) % [place] % (Auto) 8.6 (1-9) % Eos % (Auto) 1.7 (0-6) % Baso % (Auto) 1.2 (0-2) % Absolute Neuts (auto) 2.8 (1.5-7.7) 10^3/ul Absolute Lymphs (auto) 2.8 (1.0-4.8) 10^3/ul Absolute Monos (auto) 0.5 (0-0.8) 10^3/ul Absolute Eos (auto) 0.1 (0-0.6) 10^3/ul Absolute Basos (auto) 0.1 (0-0.2) 10^3/ul Absolute Nucleated RBC 0.01 10^3/ul Nucleated RBC % 0.1 Sodium (133-145) mmol/L Potassium (3.5-5.0) mmol/L Chloride (101-111) mmol/L Carbon Dioxide (22-32) mmol/L Anion Gap (2-11) mmol/L BUN (6-24) mg/dL Creatinine (0.51-0.95) mg/dL Est GFR ( Amer) (>60) Est GFR (Non-Af Amer) (>60) BUN/Creatinine Ratio (8-20) Glucose (70-100) mg/dL Lactic Acid (0.5-2.0) mmol/L Calcium (8.6-10.3) mg/dL Total Bilirubin (0.2-1.0) mg/dL AST (13-39) U/L ALT (7-52) U/L Alkaline Phosphatase (34-104) U/L Troponin I (<0.04) ng/mL Total Protein (6.4-8.9) g/dL Albumin (3.2-5.2) g/dL Globulin (2-4) g/dL Albumin/Globulin Ratio (1-3) TSH (0.34-5.60) mcIU/mL Urine Color Straw Urine Appearance Clear Urine pH 7.0 (5-9) Ur Specific [place] 1.004 L (1.010-1.030) Urine Protein Negative (Negative) Urine Ketones Negative (Negative) Urine Blood 1+ H (Negative) Urine Nitrate Negative (Negative) Urine Bilirubin Negative (Negative) Urine Urobilinogen Negative (Negative) Ur Leukocyte Esterase Negative (Negative) Urine WBC (Auto) Trace(0-5/hpf) (Absent) Urine RBC (Auto) Absent (Absent) Urine Bacteria Absent (Absent) Urine Glucose Negative (Negative) Salicylates (<30) mg/dL Urine Opiates Screen None detected (None Detect) Acetaminophen mcg/mL Ur Barbiturates Screen None detected (None Detect) Ur Phencyclidine Scrn None detected (None Detect) Ur Amphetamines Screen None detected (None Detect) U Benzodiazepines Scrn None detected (None Detect) Urine Cocaine Screen None detected (None Detect) U Cannabinoids Screen None detected (None Detect) Serum Alcohol (<10) mg/dL 04/19/16 04/19/16 Range/Units 23:43 23:43 WBC (3.5-10.8) 10^3/ul RBC (4.0-5.4) 10^6/ul Hgb (12.0-16.0) g/dl Hct (35-47) % MCV (80-97) fL MCH (27-31) pg MCHC (31-36) g/dl RDW (10.5-15) % Plt Count (150-450) 10^3/ul MPV (7.4-10.4) um3 Neut % (Auto) (38-83) % Lymph % (Auto) (25-47) % [place] % (Auto) (1-9) % Eos % (Auto) (0-6) % Baso % (Auto) (0-2) % Absolute Neuts (auto) (1.5-7.7) 10^3/ul Absolute Lymphs (auto) (1.0-4.8) 10^3/ul Absolute Monos (auto) (0-0.8) 10^3/ul Absolute Eos (auto) (0-0.6) 10^3/ul Absolute Basos (auto) (0-0.2) 10^3/ul Absolute Nucleated RBC 10^3/ul Nucleated RBC % Sodium 134 (133-145) mmol/L Potassium 3.1 L (3.5-5.0) mmol/L Chloride 100 L (101-111) mmol/L Carbon Dioxide 25 (22-32) mmol/L Anion Gap 9 (2-11) mmol/L BUN 6 (6-24) mg/dL Creatinine 0.40 L (0.51-0.95) mg/dL Est GFR ( Amer) 206.0 (>60) Est GFR (Non-Af Amer) 160.2 (>60) BUN/Creatinine Ratio 15.0 (8-20) Glucose 115 H (70-100) mg/dL Lactic Acid 2.6 H* (0.5-2.0) mmol/L Calcium 8.8 (8.6-10.3) mg/dL Total Bilirubin 1.30 H (0.2-1.0) mg/dL AST 54 H (13-39) U/L ALT 20 (7-52) U/L Alkaline Phosphatase 86 (34-104) U/L Troponin I 0.00 (<0.04) ng/mL Total Protein 6.5 (6.4-8.9) g/dL Albumin 3.8 (3.2-5.2) g/dL Globulin 2.7 (2-4) g/dL Albumin/Globulin Ratio 1.4 (1-3) TSH 6.89 H (0.34-5.60) mcIU/mL Urine Color Urine Appearance Urine pH (5-9) Ur Specific [place] (1.010-1.030) Urine Protein (Negative) Urine Ketones (Negative) Urine Blood (Negative) Urine Nitrate (Negative) Urine Bilirubin (Negative) Urine Urobilinogen (Negative) Ur Leukocyte Esterase (Negative) Urine WBC (Auto) (Absent) Urine RBC (Auto) (Absent) Urine Bacteria (Absent) Urine Glucose (Negative) Salicylates < 2.50 (<30) mg/dL Urine Opiates Screen (None Detect) Acetaminophen < 15 mcg/mL Ur Barbiturates Screen (None Detect) Ur Phencyclidine Scrn (None Detect) Ur Amphetamines Screen (None Detect) U Benzodiazepines Scrn (None Detect) Urine Cocaine Screen (None Detect) U Cannabinoids Screen (None Detect) Serum Alcohol 361 H (<10) mg/dL Result Diagrams: 04/19/16 23:43 04/19/16 23:43 Lab Statement: Any lab studies that have been ordered have been reviewed, and results considered in the medical decision making process. - EKG 2312 EKG Interpretation: NSR 92 bpm, no ST elevation, no ectopy Complex Multi-Symp Course/Dx Assessment/Plan: STABLE IN ED. DISCHARGE HOME STABLE. - Diagnoses Provider Diagnoses: Alcohol intoxication Discharge - Discharge Plan Condition: Stable Disposition: HOME Patient Education Materials: Alcohol Intoxication (ED) Referrals: Dorcas Chan NP [Primary Care Provider] - [facility] [Outside] [facility] [Outside] [facility] [Outside] Additional Instructions: FOLLOW UP WITH YOUR DOCTOR. RETURN TO THE EMERGENCY DEPARTMENT FOR ANY WORSENING OF YOUR CONDITION OR QUESTIONS OR CONCERNS. The documentation as recorded by the Anthony juan Billy accurately reflects the service I personally performed and the decisions made by me, Milind Stein MD.
[2016-04-20 05:13] VITALS: BP 103/68
== END 2016-04-20 05:11 | disposition home or self-care (01) ==
LOC: ED 20:22
DX: F10.129 Alcohol abuse with intoxication, unspecified (principal); Y90.8 Blood alcohol level of 240 mg/100 ml or more; R07.81 Pleurodynia; R06.02 Shortness of breath; R41.82 Altered mental status, unspecified
CPT/HCPCS: 36415; 80053; 80307; 80320; 80329; 81003; 81015; 83605; 84443; 84484; 85025; 93005; 99284; A9270-GY; G0480

== ENCOUNTER 2016-04-24 22:30 | Emergency (ER) | payer MEDICARE, OTHER ==
[2016-04-24] MEDS ORDERED: Thiamine IV* 100 MG, Folic Acid IV* 1 MG, Multiple Vitamin IV ADULT* 10 ML in NS 0.9% 1... IV ONE (22:52)
[2016-04-24 23:05] LABS: Hematocrit 41 % (35-47); Mean Corpuscular HGB Conc 35 g/dl (31-36); Mean Corpuscular Hemoglobin 40 pg (27-31); Mean Platelet Volume 9 um3 (7.4-10.4); Red Blood Count 3.51 10^6/ul (4.0-5.4); Red Cell Distribution Width 15 % (10.5-15); White Blood Count 6.2 10^3/ul (3.5-10.8)
[2016-04-24 23:06] LABS: Add Diff/Slide Review? Slide Review Added; Comments Flag Yes; Mean Corpuscular Volume 115 fL (80-97)
[2016-04-24 23:11] LABS: Urine Bacteria Absent (Absent); Urine Bilirubin Negative (Negative); Urine Glucose Negative (Negative); Urine Nitrite Negative (Negative)
[2016-04-24 23:18] LABS: ALT 23 U/L (7-52); AST 68 U/L (13-39); Albumin 3.7 g/dL (3.2-5.2); Alkaline Phosphatase 89 U/L (34-104); Anion Gap 10 mmol/L (2-11); BUN/Creatinine Ratio 10.8 (8-20); Blood Urea Nitrogen 4 mg/dL (6-24); CO2 Carbon Dioxide 24 mmol/L (22-32); Chloride 95 mmol/L (101-111); EGFR African American 225.4 (>60); EGFR Non-African American 175.3 (>60); Globulin 2.7 g/dL (2-4); Glucose 87 mg/dL (70-100); Lipase 24 U/L (11.0-82.0); Magnesium 1.5 mg/dL (1.9-2.7); Potassium 3.1 mmol/L (3.5-5.0); Sodium 129 mmol/L (133-145); Total Protein 6.4 g/dL (6.4-8.9)
[2016-04-24 23:19] LABS: Benzodiazepine Urine Screen None Detected (None Detect); Troponin I 0.01 ng/mL (<0.04)
[2016-04-24] MEDS ORDERED: Magnesium Sulfate 2 GM IV* 2 GM/50 ML BAG IVPB ONE (23:52)
[2016-04-25] LABS: Acetaminophen < 15 mcg/mL; Alcohol 348 mg/dL (<10); Salicylate < 2.50 mg/dL (<30)
[2016-04-25 00:10] LABS: TSH (Thyroid Stimulating Horm) 8.77 mcIU/mL (0.34-5.60)
--- NOTE | 2016-04-25 00:20 | ED ---
Kell Juárez Rebecca, scribed for Milind Stein MD on 04/24/16 at 2245 . HPI Chest Pain - HPI Summary HPI Summary: Pt is a 66 y/o F BIBA who presents to ED c/o right anterior rib pain. Pain began suddenly tonight at 2130 and has been intermittent since onset. Pain is currently ranked 7/10 and characterized as sharp. Sx aggravated and alleviated by nothing. Reports multiple falls resulting in trauma to that region. Additionally c/o diffuse abd pain, hematuria, bloody stool and constipation. Notes that she has not slept in 4 days. Denies diarrhea. Recent dx of UTI and colitis. Finished the course of Abx ot treat UTI. Pt has been consuming EtOH tonight. PMHx EtOH abuse. - History of Current Complaint Time Seen by Provider: 04/24/16 22:32 Hx Obtained From: Patient Onset/Duration: Started Hours Ago, Still Present Time of Onset: 21:30 Timing: Intermittent Initial Severity: Moderate Current Severity: Moderate Pain Intensity: 7 Pain Scale Used: 0-10 Numeric Chest Pain Location: Right Anterior - rib region Chest Pain Radiates: No Character: Sharp/Stabbing Aggravating Factor(s): Nothing Alleviating Factor(s): Nothing Associated Signs and Symptoms: Positive: Abdominal Pain - diffuse, Other: - Hematuria, bloody stools, constipation - Additional Pertinent History Primary Care Physician: [id number] - Allergy/Home Medications Allergies/Adverse Reactions: Allergies Allergy/AdvReac Type Severity Reaction Status Date / Time Doxycycline Allergy Intermediate Swelling Verified 12/26/15 21:09 Gabapentin [From Neurontin] Allergy Intermediate Swelling Verified 12/26/15 21: 09 Prednisone Allergy Intermediate Hives Verified 12/26/15 21:09 PMH/Surg Hx/FS Hx/Imm Hx Endocrine/Hematology History: Reports: Hx Anemia Denies: Hx Anticoagulant Therapy, Hx Blood Disorders, Hx Blood Transfusions, Hx Bone Marrow Disease, Hx Diabetes, Hx Systemic Lupus Erythematosus, Hx Sickle Cell Disease, Hx Thyroid Disease, Hx Unexplained Bleeding, Other Endocrine/ Hematological Disorders Cardiovascular History: Reports: Hx Angina, Hx Hypercholesterolemia - hx of, Hx Hypertension, Other Cardiovascular Problems/Disorders - carotid endarterectomy; hx of murmur Denies: Hx Aneurysm, Hx Angioplasty, Hx Auto Implanted Cardiovert Defib, Hx Cardiac Arrest, Hx Cardiomegaly, Hx Congenital Heart Disease, Hx Congestive Heart Failure, Hx Coronary Artery Disease, Hx Deep Vein Thrombosis, Hx Embolism , Hx Hypotension, Hx Pacemaker/ICD, Hx Peripheral Vascular Disease, Hx Rheumatic Fever, Hx Syncope, Hx Valvular Heart Disease Respiratory History: Reports: Hx Chronic Bronchitis, Hx Chronic Obstructive Pulmonary Disease (COPD), Hx Pneumonia, Other Respiratory Problems/Disorders - SMOAKER Denies: Hx Asthma, Hx Cystic Fibrosis, Hx Lung Cancer, Hx Pleural Effusion, Hx Pulmonary Edema, Hx Pulmonary Embolism, Hx Seasonal Allergies, Hx Sleep Apnea GI History: Reports: Hx Gastroesophageal Reflux Disease, Hx Irritable Bowel, Hx Ulcer, Other GI Disorders - adhesions Denies: Hx Cirrhosis, Hx Crohn's Disease, Hx Diverticulosis, Hx Gall Bladder Disease, Hx Gastrointestinal Bleed, Hx Hiatal Hernia, Hx Jaundice, Hx Obstructive Bowel, Hx Ileostomy, Hx Pyloric Stenosis History: Reports: Other Problems/Disorders - hx of UTI Denies: Hx Acute Renal Failure, Hx Benign Prostatic Hyperplasia, Hx Chronic Renal Failure, Hx Dialysis, Hx Kidney Infection, Hx Kidney Stones, Hx Renal Disease Musculoskeletal History: Reports: Hx Arthritis - osteo arthritis, Hx Orthopedic Injury - broken fingers, Other Musculoskeletal History - Past injury to R hand. Denies: Hx Back Problems, Hx Bursitis, Hx Congenital Bone Abnormalities, Hx Fibromyalgia, Hx Gout, Hx Osteoporosis, Hx Scoliosis, Hx Tendonitis Sensory History: Reports: Hx Contacts or Glasses, Hx Vision Problem, Other Sensory Impairments - floaters Denies: Hx Cataracts, Hx Eye Injury, Hx Eye Prosthesis, Hx Glaucoma, Hx Macular Degeneration, Hx Deafness, Hx Hearing Aid, Hx Hearing Problem Opthamlomology History: Reports: Hx Contacts or Glasses, Hx Vision Problem, Other Sensory Impairments - floaters Denies: Hx Cataracts, Hx Eye Injury, Hx Eye Prosthesis, Hx Glaucoma, Hx Macular Degeneration Neurological History: Reports: Hx Headaches - JUST RECENTLY, Hx Seizures Denies: Hx Dementia, Hx Developmental Delay, Hx Migraine, Hx Spinal Cord Injury, Hx Transient Ischemic Attacks (TIA), Other Neuro Impairments/Disorders Psychiatric History: Reports: Hx Anxiety, Hx Depression, Hx Panic Disorder - PTSD, Hx Post Traumatic Stress Disorder, Hx Inpatient Treatment, Hx Community Mental Health Tx, Hx Suicide Attempt, Hx Substance Abuse - ETOH, Other Psychiatric Issues/Disorders Denies: Hx Attention Deficit Hyperactivity Disorder, Hx Eating Disorder, Hx Schizophrenia, Hx Bipolar Disorder, Hx of Violent Episodes Against Others - Surgical History Surgery Procedure, Year, and Place: TONSILECTOMY ; APPENDECTOMY; X2 ; TUBAL LIGATION; CAROTID ENDERECTOMY (NO STENTINGS) Hx Anesthesia Reactions: Yes - EATHER CAUSED VOMITING - Immunization History Date of Tetanus Vaccine: PT STATES UNSURE Date of Influenza Vaccine: NONE Infectious Disease History: Denies: Hx Clostridium Difficile, Hx Hepatitis, Hx Human Immunodeficiency Virus (HIV), Hx Shingles, Hx Tuberculosis - Family History Known Family History: Positive: Other - father - colon ca, h/o ETOH abuse; mom- alzheimer's dz - Social History Alcohol Use: Daily Alcohol Amount: 3+ glasses 5-6x wk Hx Substance Use: No Substance Use Type: Reports: None Substance Use Comment - Amount & Last Used: pt aware of mental & physical risks of etoh, not willing/ready to change Hx Tobacco Use: Yes Smoking Status (MU): Heavy Every Day Tobacco Smoker Type: Cigarettes Have You Smoked in the Last Year: Yes Review of Systems Positive: Chest Pain - right anterior ribs Positive: Abdominal Pain - diffuse, Other - constipation. Negative: Diarrhea Positive: hematuria, other - Bloody stools All Other Systems Reviewed And Are Negative: Yes Physical Exam Triage Information Reviewed: Yes Vital Signs On Initial Exam: Initial Vitals Resp 19 04/24/16 22:40 Vital Signs Reviewed: Yes Appearance: Positive: Well-Appearing, No Pain Distress Skin: Positive: Warm, Skin Color Reflects Adequate Perfusion, Dry Head/Face: Positive: Normal Head/Face Inspection Eyes: Positive: EOMI, SIMBA ENT: Positive: Normal ENT inspection Neck: Positive: Supple, Nontender Respiratory/Lung Sounds: Positive: Breath Sounds Present, Rhonchi Cardiovascular: Positive: RRR Abdomen Description: Positive: Nontender, Soft Bowel Sounds: Positive: Present Musculoskeletal: Positive: Strength/ROM Intact, Pain @ - Tender in the right anterior lower ribs Neurological: Positive: Normal, Sensory/Motor Intact, Alert, Oriented to Person Place, Time Psychiatric: Positive: Affect/Mood Appropriate Diagnostics - Vital Signs Vital Signs Temp Pulse Resp BP Pulse Ox 04/24/16 23:10 98.6 F 7 04/24/16 23:01 98.6 F 87 16 119/68 96 04/24/16 23:00 26 04/24/16 22:56 98.6 F 85 16 119/68 96 04/24/16 22:49 82 22 119/68 94 04/24/16 22:40 19 - Laboratory Lab Results: Lab Results 04/24/16 04/24/16 04/24/16 Range/Units 22:45 22:45 22:45 WBC 6.2 (3.5-10.8) 10^3/ul RBC 3.51 L (4.0-5.4) 10^6/ul Hgb 14.0 (12.0-16.0) g/dl Hct 41 (35-47) % MCV 115 H (80-97) fL MCH 40 H (27-31) pg MCHC 35 (31-36) g/dl RDW 15 (10.5-15) % Plt Count 120 L (150-450) 10^3/ul MPV 9 (7.4-10.4) um3 Neut % (Auto) 59.4 (38-83) % Lymph % (Auto) 24.1 L (25-47) % [place] % (Auto) 7.5 (1-9) % Eos % (Auto) 2.6 (0-6) % Baso % (Auto) 6.4 H (0-2) % Absolute Neuts (auto) 3.7 (1.5-7.7) 10^3/ul Absolute Lymphs (auto) 1.5 (1.0-4.8) 10^3/ul Absolute Monos (auto) 0.5 (0-0.8) 10^3/ul Absolute Eos (auto) 0.2 (0-0.6) 10^3/ul Absolute Basos (auto) 0.4 H (0-0.2) 10^3/ul Absolute Nucleated RBC 0.02 10^3/ul Nucleated RBC % 0.3 Sodium 129 L (133-145) mmol/L Potassium 3.1 L (3.5-5.0) mmol/L Chloride 95 L (101-111) mmol/L Carbon Dioxide 24 (22-32) mmol/L Anion Gap 10 (2-11) mmol/L BUN 4 L (6-24) mg/dL Creatinine 0.37 L (0.51-0.95) mg/dL Est GFR ( Amer) 225.4 (>60) Est GFR (Non-Af Amer) 175.3 (>60) BUN/Creatinine Ratio 10.8 (8-20) Glucose 87 (70-100) mg/dL Lactic Acid (0.5-2.0) mmol/L Calcium 9.0 (8.6-10.3) mg/dL Magnesium 1.5 L (1.9-2.7) mg/dL Total Bilirubin 1.90 H (0.2-1.0) mg/dL AST 68 H (13-39) U/L ALT 23 (7-52) U/L Alkaline Phosphatase 89 (34-104) U/L Troponin I 0.01 (<0.04) ng/mL Total Protein 6.4 (6.4-8.9) g/dL Albumin 3.7 (3.2-5.2) g/dL Globulin 2.7 (2-4) g/dL Albumin/Globulin Ratio 1.4 (1-3) Lipase 24 (11.0-82.0) U/L TSH 8.77 H (0.34-5.60) mcIU/mL Urine Color Straw Urine Appearance Clear Urine pH 7.0 (5-9) Ur Specific [place] 1.002 L (1.010-1.030) Urine Protein Negative (Negative) Urine Ketones Negative (Negative) Urine Blood 1+ H (Negative) Urine Nitrate Negative (Negative) Urine Bilirubin Negative (Negative) Urine Urobilinogen Negative (Negative) Ur Leukocyte Esterase Trace H (Negative) Urine WBC (Auto) Absent (Absent) Urine RBC (Auto) Trace(0-2/hpf) (Absent) Urine Bacteria Absent (Absent) Urine Glucose Negative (Negative) Salicylates < 2.50 (<30) mg/dL Urine Opiates Screen (None Detect) Acetaminophen < 15 mcg/mL Ur Barbiturates Screen (None Detect) Ur Phencyclidine Scrn (None Detect) Ur Amphetamines Screen (None Detect) U Benzodiazepines Scrn (None Detect) Urine Cocaine Screen (None Detect) U Cannabinoids Screen (None Detect) Serum Alcohol 348 H (<10) mg/dL 04/24/16 04/24/16 Range/Units 22:45 22:45 WBC (3.5-10.8) 10^3/ul RBC (4.0-5.4) 10^6/ul Hgb (12.0-16.0) g/dl Hct (35-47) % MCV (80-97) fL MCH (27-31) pg MCHC (31-36) g/dl RDW (10.5-15) % Plt Count (150-450) 10^3/ul MPV (7.4-10.4) um3 Neut % (Auto) (38-83) % Lymph % (Auto) (25-47) % [place] % (Auto) (1-9) % Eos % (Auto) (0-6) % Baso % (Auto) (0-2) % Absolute Neuts (auto) (1.5-7.7) 10^3/ul Absolute Lymphs (auto) (1.0-4.8) 10^3/ul Absolute Monos (auto) (0-0.8) 10^3/ul Absolute Eos (auto) (0-0.6) 10^3/ul Absolute Basos (auto) (0-0.2) 10^3/ul Absolute Nucleated RBC 10^3/ul Nucleated RBC % Sodium (133-145) mmol/L Potassium (3.5-5.0) mmol/L Chloride (101-111) mmol/L Carbon Dioxide (22-32) mmol/L Anion Gap (2-11) mmol/L BUN (6-24) mg/dL Creatinine (0.51-0.95) mg/dL Est GFR ( Amer) (>60) Est GFR (Non-Af Amer) (>60) BUN/Creatinine Ratio (8-20) Glucose (70-100) mg/dL Lactic Acid 2.0 (0.5-2.0) mmol/L Calcium (8.6-10.3) mg/dL Magnesium (1.9-2.7) mg/dL Total Bilirubin (0.2-1.0) mg/dL AST (13-39) U/L ALT (7-52) U/L Alkaline Phosphatase (34-104) U/L Troponin I (<0.04) ng/mL Total Protein (6.4-8.9) g/dL Albumin (3.2-5.2) g/dL Globulin (2-4) g/dL Albumin/Globulin Ratio (1-3) Lipase (11.0-82.0) U/L TSH (0.34-5.60) mcIU/mL Urine Color Urine Appearance Urine pH (5-9) Ur Specific [place] (1.010-1.030) Urine Protein (Negative) Urine Ketones (Negative) Urine Blood (Negative) Urine Nitrate (Negative) Urine Bilirubin (Negative) Urine Urobilinogen (Negative) Ur Leukocyte Esterase (Negative) Urine WBC (Auto) (Absent) Urine RBC (Auto) (Absent) Urine Bacteria (Absent) Urine Glucose (Negative) Salicylates (<30) mg/dL Urine Opiates Screen None detected (None Detect) Acetaminophen mcg/mL Ur Barbiturates Screen None detected (None Detect) Ur Phencyclidine Scrn None detected (None Detect) Ur Amphetamines Screen None detected (None Detect) U Benzodiazepines Scrn None detected (None Detect) Urine Cocaine Screen None detected (None Detect) U Cannabinoids Screen None detected (None Detect) Serum Alcohol (<10) mg/dL Result Diagrams: 04/24/16 22:45 04/24/16 22:45 Lab Statement: Any lab studies that have been ordered have been reviewed, and results considered in the medical decision making process. Chest Pain Course/Dx - Course Assessment/Plan: IMAGING RESULTS PENDING AT SHIFT CHANGE, STABLE. - Diagnoses Provider Diagnoses: Alcohol intoxication, Chest pain, Abdominal pain Discharge - Discharge Plan Condition: Stable Disposition: HOME Discharge Disposition Comment: Pt will be signed out to Dr. Jones, pending dispo, awaiting EKG/CT Referrals: Dorcas Chan, [facility] [facility] [Primary Care Provider] - The documentation as recorded by the Kell juan Rebecca accurately reflects the service I personally performed and the decisions made by me, Milind Stein MD.
[2016-04-25 05:44] VITALS: BP 111/67
--- NOTE | 2016-04-25 09:31 | RAD ---
Indication: Right anterior chest pain after fall. Contrast: None. CT of the chest, abdomen and pelvis was performed without IV contrast. No oral contrast was administered. Inferior thyroid lobes are unremarkable. Atherosclerotic aorta is noted. No hilar adenopathy is noted. The heart is of normal size without evidence of pericardial effusion. The trachea and major bronchi appear patent. The lung prajapati demonstrate no evidence of alveolar consolidation. No pneumothorax is noted. Healing rib fractures of the right posterior 10th, 9th and 8th ribs are noted. These do not appear to be acute as the margins are well marginated and smooth. No axillary adenopathy is noted. CT of the abdomen and pelvis demonstrates the liver to be normal in size. Gallbladder demonstrates no calcific gallstones. The spleen is normal in size. The pancreas demonstrates no mass or pancreatic duct dilatation. The common duct is not dilated. No adrenal lesions are noted. The kidneys demonstrate no hydronephrosis. CT of the pelvis demonstrates no retroperitoneal or pelvic lymphadenopathy. No free fluid is identified. The urinary bladder is unremarkable. No hernia is identified. Atherosclerotic aorta without evidence of aneurysmal dilatation. IMPRESSION: No pneumothorax is noted, although multiple rib fractures are noted in the right lower chest which appear to have callus formation. Old right clavicle fracture is noted. No evidence of solid organ injury is noted. No free fluid is noted in the pelvis.
--- NOTE | 2016-04-27 10:23 | ED ---
Progress - Progress Note Progress Note: Patient is signed out to Dr. Jones from Dr. Sarita Cole PA-C 04/27/2016 @ 10:19AM: Pt's urine cx reveals e. coli UTI 50-75, 000. She was dx'd w/ E. coli UTI >100,000 on 03/29/2016 and tx'd w/ cipro 500mg bid x 7 days which was effective against organism based on sensitivities. Spoke w/ pt who reports she was compliant and completed the course and did not drink ETOH while taking cipro (NOTE: H/o ETOH abuse). Upon reviewing her chart, she has been seen multiple times since 03/29/2016 for falling and ETOH intoxication w / findings of superficial abrasions as well as rib fx. She states she is still having pelvic discomfort but not urinating as much as prior to cipro. Since she is still having sx and cx reveals lingering presence of e. coli UTI will switch to bactrim DS as pt has had this in the past and reports no ill side effects. Renal labs appear fine to rx at this time. E'rx'd w/ Kenisha Dc. Pt urged to f/u w/ PCP if sx persist, will return to ED if sx worsen. She voices understanding and agrees w/ plan. - Results/Orders Results/Orders: CT C/A/P W/O read by Imaging cone marker - Subacute seventh through 11th right rib fractures with callus formation. Old right clavicular fracture with pseudoarthrosis formation. Old bilateral rib fractures. No visceral injury in the chest, abdomen, or pelvis. Possible cirrhosis. Course/Dx - Diagnoses Provider Diagnoses: Alcohol intoxication, Chest pain, Abdominal pain
--- NOTE | 2016-06-01 23:10 | ED ---
Damion Juárez Erika, scribed for El Jones MD on 04/25/16 at 0038 . Progress - Progress Note Progress Note: Patient is signed out to Dr. Jones from Dr. Stein - Results/Orders Results/Orders: CT C/A/P W/O read by Imaging english as a second language instructor - Subacute seventh through 11th right rib fractures with callus formation. Old right clavicular fracture with pseudoarthrosis formation. Old bilateral rib fractures. No visceral injury in the chest, abdomen, or pelvis. Possible cirrhosis. Course/Dx - Diagnoses Provider Diagnoses: Alcohol intoxication, Chest pain, Abdominal pain Discharge - Discharge Plan Condition: Stable Disposition: HOME Patient Education Materials: Abuse of Alcohol (ED) Referrals: Dorcas Chan, CAMPAIGN MANAGER [Primary Care Provider] - The documentation as recorded by the Damion juan Erika accurately reflects the service I personally performed and the decisions made by Robert luke David, MD.
== END 2016-04-25 05:43 | disposition home or self-care (01) ==
LOC: ED 22:30
DX: F10.129 Alcohol abuse with intoxication, unspecified (principal); R10.9 Unspecified abdominal pain; R07.9 Chest pain, unspecified; R31.9 Hematuria, unspecified; K92.1 Melena
CPT/HCPCS: 36415; 71250; 74176; 80053; 80307; 80320; 80329; 81003; 81015; 83605; 83690; 83735; 84443; 84484; 85025; 87077; 87086; 87186; 93005; 99282; G0480; J3411; J3475

== ENCOUNTER 2016-04-26 16:35 | Emergency (ER) | payer MEDICARE, OTHER ==
[2016-04-26] MEDS ORDERED: Ibuprofen TAB* 600 MG PO ONE (17:18)
[2016-04-26 18:35] VITALS: BP 140/63
--- NOTE | 2016-04-26 18:40 | RAD ---
INDICATION: RIGHT ring finger deformity post fall. Intoxicated. COMPARISON: July 19, 2015 TECHNIQUE: AP, lateral, and oblique views RIGHT hand. REPORT: Bone density is decreased throughout. Healed fractures at the distal phalanx of the thumb and proximal phalanx of the fourth finger noted. Healed fracture the distal phalanx of the fifth finger. Acute versus subacute grossly nondisplaced fracture at the dorsal base of the fourth distal phalanx reference the lateral view is new compared with the previous exam. Negative for additional fractures. Normal articular alignment. Soft tissue swelling without significant focality. Chondrocalcinosis at the triangular fibrocartilage. Polyarticular predominant mild osteoarthritis IMPRESSION: 1. Acute versus subacute grossly nondisplaced fracture at the dorsal base of the fourth distal phalanx reference the lateral view is new compared with the previous exam. 2. Multiple healed fractures.
--- NOTE | 2016-04-26 18:44 | RAD ---
Indication: Multiple falls. Nosebleed. Intoxicated. Comparison: April 23, 2015 CT. Technique: 4 views of the facial bones obtained. Report: The orbital margins, zygomatic arches, and margins of the maxillary sinuses appear grossly intact. No nasal bone fractures evident. Normally aerated paranasal sinuses. Senile morphology mandible without visualized fracture or malalignment. IMPRESSION: No facial fracture evident.
--- NOTE | 2016-04-26 20:00 | ED ---
Head Injury - HPI Summary HPI Summary: Patient is a known ETOH abused who arrives today after sustaining may falls over the last 3 days. Patient states she was seen her yesterday and CT abd/ pelvis was completed. At that time she did not mention to the MD about any other issues and wants to see if her nose and finger are broken from one of her falls. Falls occurring d/t ETOH intox. Patient looks disheveled with right fourth finger deformity and abrasions over her nose. - History Of Current Complaint Hx Obtained From: Patient Mechanism Of Injury: Fall From A Standing Position Onset/Duration: Started Hours Ago Pain Intensity: 0 Pain Scale Used: 0-10 Numeric Location of Head Injury: Diffuse Aggravating Factor(s): Movement Alleviating Factor(s): Rest Associated Signs And Symptoms: LOC (Time In Secs./Mins/Hrs), Confusion, Memory Loss, Nausea Related History: Similar Episode/Dx as - previous falls throughout the last 3 days - Risk Factors SDH Risk Factor: Negative <Светлана Soni - Last Filed: 04/26/16 20:00> <Forrest Lynch - Last Filed: 04/28/16 11:32> - History Of Current Complaint Chief Complaint: EDFacialInjury Stated Complaint: NOSE BLEED,CHEST PAIN Time Seen by Provider: 04/26/16 17:03 - Allergies/Home Medications Allergies/Adverse Reactions: Allergies Allergy/AdvReac Type Severity Reaction Status Date / Time Doxycycline Allergy Intermediate Swelling Verified 12/26/15 21:09 Gabapentin [From Neurontin] Allergy Intermediate Swelling Verified 12/26/15 21: 09 Prednisone Allergy Intermediate Hives Verified 12/26/15 21:09 PMH/Surg Hx/FS Hx/Imm Hx Previously Healthy: Yes Endocrine/Hematology History: Reports: Hx Anemia Denies: Hx Anticoagulant Therapy, Hx Blood Disorders, Hx Blood Transfusions, Hx Bone Marrow Disease, Hx Diabetes, Hx Systemic Lupus Erythematosus, Hx Sickle Cell Disease, Hx Thyroid Disease, Hx Unexplained Bleeding, Other Endocrine/ Hematological Disorders Cardiovascular History: Reports: Hx Angina, Hx Hypercholesterolemia - hx of, Hx Hypertension, Other Cardiovascular Problems/Disorders - carotid endarterectomy; hx of murmur Denies: Hx Aneurysm, Hx Angioplasty, Hx Auto Implanted Cardiovert Defib, Hx Cardiac Arrest, Hx Cardiomegaly, Hx Congenital Heart Disease, Hx Congestive Heart Failure, Hx Coronary Artery Disease, Hx Deep Vein Thrombosis, Hx Embolism , Hx Hypotension, Hx Pacemaker/ICD, Hx Peripheral Vascular Disease, Hx Rheumatic Fever, Hx Syncope, Hx Valvular Heart Disease Respiratory History: Reports: Hx Chronic Bronchitis, Hx Chronic Obstructive Pulmonary Disease (COPD), Hx Pneumonia, Other Respiratory Problems/Disorders - SMOAKER Denies: Hx Asthma, Hx Cystic Fibrosis, Hx Lung Cancer, Hx Pleural Effusion, Hx Pulmonary Edema, Hx Pulmonary Embolism, Hx Seasonal Allergies, Hx Sleep Apnea GI History: Reports: Hx Gastroesophageal Reflux Disease, Hx Irritable Bowel, Hx Ulcer, Other GI Disorders - adhesions Denies: Hx Cirrhosis, Hx Crohn's Disease, Hx Diverticulosis, Hx Gall Bladder Disease, Hx Gastrointestinal Bleed, Hx Hiatal Hernia, Hx Jaundice, Hx Obstructive Bowel, Hx Ileostomy, Hx Pyloric Stenosis History: Reports: Other Problems/Disorders - hx of UTI Denies: Hx Acute Renal Failure, Hx Benign Prostatic Hyperplasia, Hx Chronic Renal Failure, Hx Dialysis, Hx Kidney Infection, Hx Kidney Stones, Hx Renal Disease Musculoskeletal History: Reports: Hx Arthritis - osteo arthritis, Hx Orthopedic Injury - broken fingers, Other Musculoskeletal History - Past injury to R hand. Denies: Hx Back Problems, Hx Bursitis, Hx Congenital Bone Abnormalities, Hx Fibromyalgia, Hx Gout, Hx Osteoporosis, Hx Scoliosis, Hx Tendonitis Sensory History: Reports: Hx Contacts or Glasses, Hx Vision Problem, Other Sensory Impairments - floaters Denies: Hx Cataracts, Hx Eye Injury, Hx Eye Prosthesis, Hx Glaucoma, Hx Macular Degeneration, Hx Deafness, Hx Hearing Aid, Hx Hearing Problem Opthamlomology History: Reports: Hx Contacts or Glasses, Hx Vision Problem, Other Sensory Impairments - floaters Denies: Hx Cataracts, Hx Eye Injury, Hx Eye Prosthesis, Hx Glaucoma, Hx Macular Degeneration Neurological History: Reports: Hx Headaches - JUST RECENTLY, Hx Seizures Denies: Hx Dementia, Hx Developmental Delay, Hx Migraine, Hx Spinal Cord Injury, Hx Transient Ischemic Attacks (TIA), Other Neuro Impairments/Disorders Psychiatric History: Reports: Hx Anxiety, Hx Depression, Hx Panic Disorder - PTSD, Hx Post Traumatic Stress Disorder, Hx Inpatient Treatment, Hx Community Mental Health Tx, Hx Suicide Attempt, Hx Substance Abuse - ETOH, Other Psychiatric Issues/Disorders Denies: Hx Attention Deficit Hyperactivity Disorder, Hx Eating Disorder, Hx Schizophrenia, Hx Bipolar Disorder, Hx of Violent Episodes Against Others - Surgical History Surgery Procedure, Year, and Place: TONSILECTOMY ; APPENDECTOMY; X2 ; TUBAL LIGATION; CAROTID ENDERECTOMY (NO STENTINGS) Hx Anesthesia Reactions: Yes - EATHER CAUSED VOMITING - Immunization History Date of Tetanus Vaccine: PT STATES UNSURE Date of Influenza Vaccine: NONE Infectious Disease History: No Infectious Disease History: Denies: Hx Clostridium Difficile, Hx Hepatitis, Hx Human Immunodeficiency Virus (HIV), Hx Shingles, Hx Tuberculosis, Traveled Outside the [place] in Last 30 Days - Family History Known Family History: Positive: None, Other - father - colon ca, h/o ETOH abuse ; mom- alzheimer's dz - Social History Occupation: Disabled Lives: Alone Alcohol Use: Daily Alcohol Amount: 3+ glasses 5-6x wk Hx Substance Use: No Substance Use Type: Reports: None Substance Use Comment - Amount & Last Used: pt aware of mental & physical risks of etoh, not willing/ready to change Hx Tobacco Use: Yes Smoking Status (MU): Heavy Every Day Tobacco Smoker Type: Cigarettes Have You Smoked in the Last Year: Yes <Светлана Soni - Last Filed: 04/26/16 20:00> Review of Systems Constitutional: Negative Positive: Erythema ENT: Negative Cardiovascular: Negative Respiratory: Negative Positive: Abdominal Pain Positive: no symptoms reported, see HPI Positive: Arthralgia, Myalgia Positive: Bruising, Other - abrasions over nose Positive: Headache Positive: Depressed All Other Systems Reviewed And Are Negative: Yes <Светлана Soin - Last Filed: 04/26/16 20:00> Physical Exam Triage Information Reviewed: Yes Vital Signs On Initial Exam: Initial Vitals Temp Pulse Resp BP Pulse Ox 98.8 F 94 20 129/55 95 04/26/16 16:38 04/26/16 16:38 04/26/16 16:38 04/26/16 16:38 04/26/16 16:38 Vital Signs Reviewed: Yes Appearance: Positive: Cachectic - discheveled Skin: Positive: Warm, Other Head/Face: Positive: Normal Head/Face Inspection Eyes: Positive: Conjunctiva Inflammed ENT: Positive: Pharynx normal, TMs normal Dental: Positive: Dental Fracture @ - all Neck: Positive: Nontender, No Lymphadenopathy Respiratory/Lung Sounds: Positive: Breath Sounds Present Cardiovascular: Positive: RRR Musculoskeletal: Positive: Normal, Strength/ROM Intact Neurological: Positive: Speech Normal Psychiatric: Positive: Normal AVPU Assessment: Alert - Low Coma Scale Coma Scale Total: 13 <Светлана Soni Zahida - Last Filed: 04/26/16 20:00> Vital Signs On Initial Exam: Initial Vitals Temp Pulse Resp BP Pulse Ox 98.8 F 94 20 129/55 95 04/26/16 16:38 04/26/16 16:38 04/26/16 16:38 04/26/16 16:38 04/26/16 16:38 <Forrest Lynch - Last Filed: 04/28/16 11:32> Diagnostics - Vital Signs Vital Signs Temp Pulse Resp BP Pulse Ox 04/26/16 18:30 92 140/63 93 04/26/16 18:23 110/67 04/26/16 18:22 92 91 04/26/16 18:00 80 87 04/26/16 17:19 108/66 04/26/16 17:16 13 04/26/16 17:00 93 15 96 04/26/16 16:52 89 10 97 04/26/16 16:38 98.8 F 94 20 129/55 95 <Zachariah,Светлана Teague - Last Filed: 04/26/16 20:00> - Vital Signs Vital Signs Temp Pulse Resp BP Pulse Ox 04/26/16 18:30 92 140/63 93 04/26/16 18:23 110/67 04/26/16 18:22 92 91 04/26/16 18:00 80 87 04/26/16 17:19 108/66 04/26/16 17:16 13 04/26/16 17:00 93 15 96 04/26/16 16:52 89 10 97 04/26/16 16:38 98.8 F 94 20 129/55 95 <Forrest Lynch - Last Filed: 04/28/16 11:32> Head Injury Course/Dx Course Of Treatment: Arrives with ETOH smell. Patient c/o facial trauma after fall including right hand and finger pain after fall. She states she has falledn several times over the last 3 days. She was seen yesterday and worked up for chest wall discomfort from fall. 1. Acute versus subacute grossly nondisplaced fracture at the dorsal base of the fourth. distal phalanx reference the lateral view is new compared with the previous exam. 2. Multiple healed fractures. Patient began to smoke in room. Security called. Splint applied with follow-up with Dr. Donaldson per patient request. - Diagnoses Differential Diagnosis/HQI/PQRI: Contusion, Mandible Fracture, Nasal Fracture <Светлана Soni - Last Filed: 04/26/16 20:00> Assessment/Plan: I was available for consultation. This patient was seen by mid level provider. The patient was not presented, seen, or examined by me. WR. <Forrest Lynch - Last Filed: 04/28/16 11:32> - Diagnoses Provider Diagnoses: Finger dislocation, Facial contusion Discharge <Светлана Soni - Last Filed: 04/26/16 20:00> <Forrest Lynch - Last Filed: 04/28/16 11:32> - Discharge Plan Condition: Stable Disposition: HOME Referrals: Stef Donaldson MD [Medical Doctor] - Dorcas Chan NP [Primary Care Provider] - Additional Instructions: Follow up with Dr. Donaldson. Rest, Ice. Do not use the finger until follow up. Images - Images Head: 1 - abrasion <Светлана Soni - Last Filed: 04/26/16 20:00>
--- NOTE | 2016-05-14 07:46 | PN ---
Progress Note - Progress Note Note: right fourth finger splint applied. Taped below PIP and below DIP. Neurovascular exam performed s/p splint. Pulses equal bilaterally. Patient tolerated well. Follow up with ortho given.
== END 2016-04-26 19:32 | disposition home or self-care (01) ==
LOC: ED 16:35
DX: S63.254A Unspecified dislocation of right ring finger, initial encounter (principal); S00.93XA Contusion of unspecified part of head, initial encounter; R10.9 Unspecified abdominal pain; R51 Headache; F32.9 Major depressive disorder, single episode, unspecified; F17.210 Nicotine dependence, cigarettes, uncomplicated; W19.XXXA Unspecified fall, initial encounter; F10.129 Alcohol abuse with intoxication, unspecified; Z91.81 History of falling; Y93.9 Activity, unspecified; Y92.9 Unspecified place or not applicable; Y99.9 Unspecified external cause status
CPT/HCPCS: 70150; 99283; A9270-GY

== ENCOUNTER 2016-04-28 14:51 | Emergency (ER) | payer MEDICARE, OTHER ==
[2016-04-28 15:06] VITALS: BP 113/66
[2016-04-28 15:50] LABS: Hematocrit 37 % (35-47); Hemoglobin 12.7 g/dl (12.0-16.0); Mean Corpuscular HGB Conc 35 g/dl (31-36); Mean Corpuscular Hemoglobin 40 pg (27-31); Mean Corpuscular Volume 117 fL (80-97); Mean Platelet Volume 8 um3 (7.4-10.4); Red Blood Count 3.15 10^6/ul (4.0-5.4); Red Cell Distribution Width 15 % (10.5-15); White Blood Count 5.2 10^3/ul (3.5-10.8)
[2016-04-28 16:05] LABS: Albumin 3.6 g/dL (3.2-5.2); BUN/Creatinine Ratio 12.2 (8-20); Calcium 8.8 mg/dL (8.6-10.3); EGFR Non-African American 126.7 (>60); Globulin 2.6 g/dL (2-4); Potassium 3.1 mmol/L (3.5-5.0); Total Protein 6.2 g/dL (6.4-8.9)
[2016-04-28 16:06] LABS: Troponin I 0.01 ng/mL (<0.04)
[2016-04-28] MEDS ORDERED: Nitrofurantoin Macrocrystals* 100 MG CAP PO ONE (16:40)
[2016-04-28] MEDS ORDERED: Potassium Chlor TAB* 20 MEQ TAB.ER PO ONE (16:40)
--- NOTE | 2016-04-28 17:22 | ED ---
Complex/Multi-Sys Presentation - HPI Summary HPI Summary: Patient is brought in after a fall. She denies hitting her head, LOC or neck pain. She had a fall earlier in the week that resulted in facial contusions, bilateral rib pain and a broken finger. Today she has not complaints, but is very sad that he 14 dog 2 weeks ago and "she was all she had". She feels she has been less stable on her feet for 3 weeks and has had numerous evaluations at the ED and with her PCP, Dorcas Chan. The patient admits to consuming alcohol and not eating or drinking much else for the past few days. She denies CP, SOB, SOLIS, back pain or fevers. Patient is verbally aggressive with her nurse and has to be convinced that we are trying to help her. - History Of Current Complaint Chief Complaint: EDGeneral Time Seen by Provider: 04/28/16 15:16 Hx Obtained From: Patient Onset/Duration: Gradual Onset Severity Currently: None Severity Initially: Mild Location: Negative - no new pain Character: Unable To Describe - Allergies/Home Medications Allergies/Adverse Reactions: Allergies Allergy/AdvReac Type Severity Reaction Status Date / Time Doxycycline Allergy Intermediate Swelling Verified 12/26/15 21:09 Gabapentin [From Neurontin] Allergy Intermediate Swelling Verified 12/26/15 21: 09 Prednisone Allergy Intermediate Hives Verified 12/26/15 21:09 PMH/Surg Hx/FS Hx/Imm Hx Endocrine/Hematology History: Reports: Hx Anemia Denies: Hx Anticoagulant Therapy, Hx Blood Disorders, Hx Blood Transfusions, Hx Bone Marrow Disease, Hx Diabetes, Hx Systemic Lupus Erythematosus, Hx Sickle Cell Disease, Hx Thyroid Disease, Hx Unexplained Bleeding, Other Endocrine/ Hematological Disorders Cardiovascular History: Reports: Hx Angina, Hx Hypercholesterolemia - hx of, Hx Hypertension, Other Cardiovascular Problems/Disorders - carotid endarterectomy; hx of murmur Denies: Hx Aneurysm, Hx Angioplasty, Hx Auto Implanted Cardiovert Defib, Hx Cardiac Arrest, Hx Cardiomegaly, Hx Congenital Heart Disease, Hx Congestive Heart Failure, Hx Coronary Artery Disease, Hx Deep Vein Thrombosis, Hx Embolism , Hx Hypotension, Hx Pacemaker/ICD, Hx Peripheral Vascular Disease, Hx Rheumatic Fever, Hx Syncope, Hx Valvular Heart Disease Respiratory History: Reports: Hx Chronic Bronchitis, Hx Chronic Obstructive Pulmonary Disease (COPD), Hx Pneumonia, Other Respiratory Problems/Disorders - SMOAKER Denies: Hx Asthma, Hx Cystic Fibrosis, Hx Lung Cancer, Hx Pleural Effusion, Hx Pulmonary Edema, Hx Pulmonary Embolism, Hx Seasonal Allergies, Hx Sleep Apnea GI History: Reports: Hx Gastroesophageal Reflux Disease, Hx Irritable Bowel, Hx Ulcer, Other GI Disorders - adhesions Denies: Hx Cirrhosis, Hx Crohn's Disease, Hx Diverticulosis, Hx Gall Bladder Disease, Hx Gastrointestinal Bleed, Hx Hiatal Hernia, Hx Jaundice, Hx Obstructive Bowel, Hx Ileostomy, Hx Pyloric Stenosis History: Reports: Other Problems/Disorders - hx of UTI Denies: Hx Acute Renal Failure, Hx Benign Prostatic Hyperplasia, Hx Chronic Renal Failure, Hx Dialysis, Hx Kidney Infection, Hx Kidney Stones, Hx Renal Disease Musculoskeletal History: Reports: Hx Arthritis - osteo arthritis, Hx Orthopedic Injury - broken fingers, Other Musculoskeletal History - Past injury to R hand. Denies: Hx Back Problems, Hx Bursitis, Hx Congenital Bone Abnormalities, Hx Fibromyalgia, Hx Gout, Hx Osteoporosis, Hx Scoliosis, Hx Tendonitis Sensory History: Reports: Hx Contacts or Glasses, Hx Vision Problem, Other Sensory Impairments - floaters Denies: Hx Cataracts, Hx Eye Injury, Hx Eye Prosthesis, Hx Glaucoma, Hx Macular Degeneration, Hx Deafness, Hx Hearing Aid, Hx Hearing Problem Opthamlomology History: Reports: Hx Contacts or Glasses, Hx Vision Problem, Other Sensory Impairments - floaters Denies: Hx Cataracts, Hx Eye Injury, Hx Eye Prosthesis, Hx Glaucoma, Hx Macular Degeneration Neurological History: Reports: Hx Headaches - JUST RECENTLY, Hx Seizures Denies: Hx Dementia, Hx Developmental Delay, Hx Migraine, Hx Spinal Cord Injury, Hx Transient Ischemic Attacks (TIA), Other Neuro Impairments/Disorders Psychiatric History: Reports: Hx Anxiety, Hx Depression, Hx Panic Disorder - PTSD, Hx Post Traumatic Stress Disorder, Hx Inpatient Treatment, Hx Community Mental Health Tx, Hx Suicide Attempt, Hx Substance Abuse - ETOH, Other Psychiatric Issues/Disorders Denies: Hx Attention Deficit Hyperactivity Disorder, Hx Eating Disorder, Hx Schizophrenia, Hx Bipolar Disorder, Hx of Violent Episodes Against Others - Surgical History Surgery Procedure, Year, and Place: TONSILECTOMY ; APPENDECTOMY; X2 ; TUBAL LIGATION; CAROTID ENDERECTOMY (NO STENTINGS) Hx Anesthesia Reactions: Yes - EATHER CAUSED VOMITING - Immunization History Date of Tetanus Vaccine: PT STATES UNSURE Date of Influenza Vaccine: NONE Infectious Disease History: Unable to Obtain/Confirm Infectious Disease History: Denies: Hx Clostridium Difficile, Hx Hepatitis, Hx Human Immunodeficiency Virus (HIV), Hx Shingles, Hx Tuberculosis, Traveled Outside the [place] in Last 30 Days - Family History Known Family History: Positive: None, Other - father - colon ca, h/o ETOH abuse ; mom- alzheimer's dz - Social History Occupation: Unemployed Lives: Alone Alcohol Use: Daily Alcohol Amount: 3+ glasses 5-6x wk Hx Substance Use: No Substance Use Type: Reports: None Substance Use Comment - Amount & Last Used: pt aware of mental & physical risks of etoh, not willing/ready to change Hx Tobacco Use: Yes Smoking Status (MU): Heavy Every Day Tobacco Smoker Type: Cigarettes Have You Smoked in the Last Year: Yes Cessation Counseling: Patient Advised to Stop Review of Systems Negative: Fever, Chills Negative: Photophobia Negative: Sore Throat Negative: Chest Pain Negative: Shortness Of Breath Negative: Abdominal Pain Negative: Myalgia, Decreased ROM, Edema Positive: Bruising - right eye ecchymosis, Other - healing abrasion to bridge of nose Negative: Headache, Weakness, Paresthesia, Numbness All Other Systems Reviewed And Are Negative: Yes Physical Exam Triage Information Reviewed: Yes Vital Signs On Initial Exam: Initial Vitals Temp Pulse Resp BP Pulse Ox 98.2 F 84 16 100/60 92 04/28/16 14:57 04/28/16 14:57 04/28/16 14:57 04/28/16 14:57 04/28/16 14:57 Vital Signs Reviewed: Yes Appearance: Positive: Well-Appearing, No Pain Distress, Well-Nourished Skin: Positive: Warm, Skin Color Reflects Adequate Perfusion, Dry, Soft, Other - healing abrasion to bridge of nose; right eye ecchymosis Head/Face: Positive: Normal Head/Face Inspection Eyes: Positive: EOMI, SIMBA, Conjunctiva Clear ENT: Positive: Hearing grossly normal, Pharynx normal, TMs normal Neck: Positive: Supple, Nontender Respiratory/Lung Sounds: Positive: Clear to Auscultation, Breath Sounds Present Cardiovascular: Positive: RRR Musculoskeletal: Negative: Edema Left, Edema Right Neurological: Positive: Sensory/Motor Intact, Alert, Oriented to Person Place, Time, NV Bundle Intact Distally Psychiatric: Positive: Affect/Mood Appropriate, Other - Patient appears intoxicated. AVPU Assessment: Alert - Low Coma Scale Coma Scale Total: 15 Diagnostics - Vital Signs Vital Signs Temp Pulse Resp BP Pulse Ox 04/28/16 16:00 81 96 04/28/16 15:01 84 93 04/28/16 15:00 113/66 04/28/16 14:57 98.2 F 84 16 100/60 92 - Laboratory Lab Results: Lab Results 04/28/16 04/28/16 04/28/16 Range/Units 15:40 15:40 15:40 WBC 5.2 (3.5-10.8) 10^3/ul RBC 3.15 L (4.0-5.4) 10^6/ul Hgb 12.7 (12.0-16.0) g/dl Hct 37 (35-47) % MCV 117 H (80-97) fL MCH 40 H (27-31) pg MCHC 35 (31-36) g/dl RDW 15 (10.5-15) % Plt Count 111 L (150-450) 10^3/ul MPV 8 (7.4-10.4) um3 Neut % (Auto) 59.5 (38-83) % Lymph % (Auto) 28.2 (25-47) % Osborne % (Auto) 9.0 (1-9) % Eos % (Auto) 1.0 (0-6) % Baso % (Auto) 2.3 H (0-2) % Absolute Neuts (auto) 3.1 (1.5-7.7) 10^3/ul Absolute Lymphs (auto) 1.5 (1.0-4.8) 10^3/ul Absolute Monos (auto) 0.5 (0-0.8) 10^3/ul Absolute Eos (auto) 0.1 (0-0.6) 10^3/ul Absolute Basos (auto) 0.1 (0-0.2) 10^3/ul Absolute Nucleated RBC 0.02 10^3/ul Nucleated RBC % 0.3 Sodium 139 (133-145) mmol/L Potassium 3.1 L (3.5-5.0) mmol/L Chloride 106 (101-111) mmol/L Carbon Dioxide 23 (22-32) mmol/L Anion Gap 10 (2-11) mmol/L BUN 6 (6-24) mg/dL Creatinine 0.49 L (0.51-0.95) mg/dL Est GFR ( Amer) 163.0 (>60) Est GFR (Non-Af Amer) 126.7 (>60) BUN/Creatinine Ratio 12.2 (8-20) Glucose 89 (70-100) mg/dL Lactic Acid 2.2 H* (0.5-2.0) mmol/L Calcium 8.8 (8.6-10.3) mg/dL Total Bilirubin 1.00 (0.2-1.0) mg/dL AST 41 H (13-39) U/L ALT 17 (7-52) U/L Alkaline Phosphatase 79 (34-104) U/L Ammonia (16-53) mol/L Troponin I 0.01 (<0.04) ng/mL Total Protein 6.2 L (6.4-8.9) g/dL Albumin 3.6 (3.2-5.2) g/dL Globulin 2.6 (2-4) g/dL Albumin/Globulin Ratio 1.4 (1-3) 04/28/16 Range/Units 16:16 WBC (3.5-10.8) 10^3/ul RBC (4.0-5.4) 10^6/ul Hgb (12.0-16.0) g/dl Hct (35-47) % MCV (80-97) fL MCH (27-31) pg MCHC (31-36) g/dl RDW (10.5-15) % Plt Count (150-450) 10^3/ul MPV (7.4-10.4) um3 Neut % (Auto) (38-83) % Lymph % (Auto) (25-47) % Osborne % (Auto) (1-9) % Eos % (Auto) (0-6) % Baso % (Auto) (0-2) % Absolute Neuts (auto) (1.5-7.7) 10^3/ul Absolute Lymphs (auto) (1.0-4.8) 10^3/ul Absolute Monos (auto) (0-0.8) 10^3/ul Absolute Eos (auto) (0-0.6) 10^3/ul Absolute Basos (auto) (0-0.2) 10^3/ul Absolute Nucleated RBC 10^3/ul Nucleated RBC % Sodium (133-145) mmol/L Potassium (3.5-5.0) mmol/L Chloride (101-111) mmol/L Carbon Dioxide (22-32) mmol/L Anion Gap (2-11) mmol/L BUN (6-24) mg/dL Creatinine (0.51-0.95) mg/dL Est GFR ( Amer) (>60) Est GFR (Non-Af Amer) (>60) BUN/Creatinine Ratio (8-20) Glucose (70-100) mg/dL Lactic Acid (0.5-2.0) mmol/L Calcium (8.6-10.3) mg/dL Total Bilirubin (0.2-1.0) mg/dL AST (13-39) U/L ALT (7-52) U/L Alkaline Phosphatase (34-104) U/L Ammonia 60 H (16-53) mol/L Troponin I (<0.04) ng/mL Total Protein (6.4-8.9) g/dL Albumin (3.2-5.2) g/dL Globulin (2-4) g/dL Albumin/Globulin Ratio (1-3) Result Diagrams: 04/28/16 15:40 04/28/16 15:40 Lab Statement: Any lab studies that have been ordered have been reviewed, and results considered in the medical decision making process. Complex Multi-Symp Course/Dx Course Of Treatment: Patient varies from cooperative to verbal aggression with staff. I contacted her daughter Kalie to discuss patient's baseline behavior and condition, which the daughter states is a state of constant intoxication. The patient was taken to [facility] for placement and "just walked out" according to her daughter. She is resistant to any kind of intervention regarding her alcohol use and has not interest in stopping at this point. She had 10 years of sobriety in the past. The patient reports a close working relationship with her PCP and will follow-up with her regarding todays visit and diagnosis. Patient was called today for notification that her urine culture from two days ago was positive. She will be treated at this visit. - Diagnoses Provider Diagnoses: Hypokalemia, UTI (urinary tract infection) Discharge - Discharge Plan Condition: Stable Disposition: HOME Prescriptions: Nitrofurantoin Monohyd Macro [Macrobid] 100 mg PO BID #5 cap Patient Education Materials: Urinary Tract Infection in Women (ED), Hypokalemia (ED) Referrals: Dorcas Chan [employer] WORK[employer] [Primary Care Provider] - Additional Instructions: Please take the antibiotics prescribed until they are completely gone. Follow- up with your PCP in 2-3 days for evaluation and to discuss your current diagnoses. Return to the emergency department if your symptoms worsen.
== END 2016-04-28 17:09 | disposition home or self-care (01) ==
LOC: ED 14:51
DX: E87.6 Hypokalemia (principal); N39.0 Urinary tract infection, site not specified; S00.11XA Contusion of right eyelid and periocular area, initial encounter; W19.XXXA Unspecified fall, initial encounter; Y93.9 Activity, unspecified; Y92.9 Unspecified place or not applicable; Y99.9 Unspecified external cause status; F17.210 Nicotine dependence, cigarettes, uncomplicated
CPT/HCPCS: 36415; 80053; 82140; 83605; 84484; 85025; 99283; A9270-GY

== ENCOUNTER 2016-06-01 14:30 | Emergency (ER) | payer MEDICARE, MEDICAID ==
[2016-06-01] MEDS ORDERED: Tetan/Diph/Pertus SYR(Tdap)* 0.5 ML SYR(BOOSTRIX) use SYR IM ONE (15:05)
--- NOTE | 2016-06-01 16:00 | RAD ---
Indication: Head injury. CT of the brain was performed without IV contrast. Ventricular structures are midline. No midline shift is noted. The extra-axial spaces are unremarkable. There is no evidence of intracranial mass or hemorrhage. No other high or low density lesions identified. Mastoid air cells and paranasal sinuses are grossly unremarkable. When compared to previous exam of July 19, 2015 no significant change is noted. IMPRESSION: There is no evidence of intracranial mass or hemorrhage noted.
--- NOTE | 2016-06-01 16:04 | RAD ---
Indication: Neck pain, head contusion. CT of the cervical spine was obtained in the axial plane. Sagittal and coronal reconstructed images were obtained. The skull base including mastoid air cells are well aerated without evidence of fluid or fracture. No basilar skull fracture is noted. The C1 ring is intact with no evidence of fracture. Calcification of the transverse ligament is noted. At C2-C3, C3-C4, C4-C5 there is no fracture noted. No central or foraminal stenosis is noted. At C5-C6 spondylitic ridge is noted. No central or foraminal stenosis is identified. At C6-C7 spondylitic ridge flattens the thecal sac. No central or foraminal stenosis is noted. At C7-T1 and T1-T2 no disc protrusion is noted. Lung apices are unremarkable. IMPRESSION: NO FRACTURE IS NOTED. DEGENERATIVE DISC DISEASE IS NOTED AT THE ATLANTOAXIAL JOINT, C5-C6 AND C6-C7.
--- NOTE | 2016-06-01 16:06 | RAD ---
Indication: Facial injury. CT of the facial bones was obtained in the axial plane. Sagittal and coronal reconstructed images were obtained. The mandible demonstrates no evidence of fracture. Temporomandibular joints are unremarkable. The maxilla including the pterygoid plates are intact. No fracture is identified. Zygomatic arch where visualized is unremarkable. The orbits are otherwise unremarkable. The paranasal sinuses are otherwise unremarkable. The paranasal sinuses are otherwise unremarkable. IMPRESSION: No fracture of the facial bones is identified.
[2016-06-01 16:26] VITALS: BP 118/63
--- NOTE | 2016-06-01 17:13 | ED ---
Andrea Juárez Alok, scribed for Forrest Lynch MD on 06/01/16 at 1521 . Head Injury - HPI Summary HPI Summary: 66 y/o female presents to the ED with a head injury after tripping and falling forward outside while getting her mail today. Pt denies any SOLIS, neck pain, or LOC. Pt does not take blood thinners, nor does she take any other medications. Pt smokes tobacco and drinks EtOH. Pt states she had 4 beers today. - History Of Current Complaint Chief Complaint: EDHeadInjury Stated Complaint: FALL HEAD LAC Time Seen by Provider: 06/01/16 14:49 Hx Obtained From: Patient Mechanism Of Injury: Fall From A Standing Position Onset/Duration: Started Hours Ago, Traumatic, Still Present Onset of Pain: Immediate Severity Currently: Moderate Severity Initially: Moderate Pain Intensity: 0 Pain Scale Used: 0-10 Numeric Location of Head Injury: Frontal Associated Signs And Symptoms: Negative - Allergies/Home Medications Allergies/Adverse Reactions: Allergies Allergy/AdvReac Type Severity Reaction Status Date / Time Doxycycline Allergy Intermediate Swelling Verified 12/26/15 21:09 Gabapentin [From Neurontin] Allergy Intermediate Swelling Verified 12/26/15 21: 09 Prednisone Allergy Intermediate Hives Verified 12/26/15 21:09 PMH/Surg Hx/FS Hx/Imm Hx Endocrine/Hematology History: Reports: Hx Anemia Denies: Hx Anticoagulant Therapy, Hx Blood Disorders, Hx Blood Transfusions, Hx Bone Marrow Disease, Hx Diabetes, Hx Systemic Lupus Erythematosus, Hx Sickle Cell Disease, Hx Thyroid Disease, Hx Unexplained Bleeding, Other Endocrine/ Hematological Disorders Cardiovascular History: Reports: Hx Angina, Hx Hypercholesterolemia - hx of, Hx Hypertension, Other Cardiovascular Problems/Disorders - carotid endarterectomy; hx of murmur Denies: Hx Aneurysm, Hx Angioplasty, Hx Auto Implanted Cardiovert Defib, Hx Cardiac Arrest, Hx Cardiomegaly, Hx Congenital Heart Disease, Hx Congestive Heart Failure, Hx Coronary Artery Disease, Hx Deep Vein Thrombosis, Hx Embolism , Hx Hypotension, Hx Pacemaker/ICD, Hx Peripheral Vascular Disease, Hx Rheumatic Fever, Hx Syncope, Hx Valvular Heart Disease Respiratory History: Reports: Hx Chronic Bronchitis, Hx Chronic Obstructive Pulmonary Disease (COPD), Hx Pneumonia, Other Respiratory Problems/Disorders - SMOAKER Denies: Hx Asthma, Hx Cystic Fibrosis, Hx Lung Cancer, Hx Pleural Effusion, Hx Pulmonary Edema, Hx Pulmonary Embolism, Hx Seasonal Allergies, Hx Sleep Apnea GI History: Reports: Hx Gastroesophageal Reflux Disease, Hx Irritable Bowel, Hx Ulcer, Other GI Disorders - adhesions Denies: Hx Cirrhosis, Hx Crohn's Disease, Hx Diverticulosis, Hx Gall Bladder Disease, Hx Gastrointestinal Bleed, Hx Hiatal Hernia, Hx Jaundice, Hx Obstructive Bowel, Hx Ileostomy, Hx Pyloric Stenosis History: Reports: Other Problems/Disorders - hx of UTI Denies: Hx Acute Renal Failure, Hx Benign Prostatic Hyperplasia, Hx Chronic Renal Failure, Hx Dialysis, Hx Kidney Infection, Hx Kidney Stones, Hx Renal Disease Musculoskeletal History: Reports: Hx Arthritis - osteo arthritis, Hx Orthopedic Injury - broken fingers, Other Musculoskeletal History - Past injury to R hand. Denies: Hx Back Problems, Hx Bursitis, Hx Congenital Bone Abnormalities, Hx Fibromyalgia, Hx Gout, Hx Osteoporosis, Hx Scoliosis, Hx Tendonitis Sensory History: Reports: Hx Contacts or Glasses, Hx Vision Problem, Other Sensory Impairments - floaters Denies: Hx Cataracts, Hx Eye Injury, Hx Eye Prosthesis, Hx Glaucoma, Hx Macular Degeneration, Hx Deafness, Hx Hearing Aid, Hx Hearing Problem Opthamlomology History: Reports: Hx Contacts or Glasses, Hx Vision Problem, Other Sensory Impairments - floaters Denies: Hx Cataracts, Hx Eye Injury, Hx Eye Prosthesis, Hx Glaucoma, Hx Macular Degeneration Neurological History: Reports: Hx Headaches - JUST RECENTLY, Hx Seizures Denies: Hx Dementia, Hx Developmental Delay, Hx Migraine, Hx Spinal Cord Injury, Hx Transient Ischemic Attacks (TIA), Other Neuro Impairments/Disorders Psychiatric History: Reports: Hx Anxiety, Hx Depression, Hx Panic Disorder - PTSD, Hx Post Traumatic Stress Disorder, Hx Inpatient Treatment, Hx Community Mental Health Tx, Hx Suicide Attempt, Hx Substance Abuse - ETOH, Other Psychiatric Issues/Disorders Denies: Hx Attention Deficit Hyperactivity Disorder, Hx Eating Disorder, Hx Schizophrenia, Hx Bipolar Disorder, Hx of Violent Episodes Against Others - Surgical History Surgery Procedure, Year, and Place: TONSILECTOMY ; APPENDECTOMY; X2 ; TUBAL LIGATION; CAROTID ENDERECTOMY (NO STENTINGS) Hx Anesthesia Reactions: Yes - EATHER CAUSED VOMITING - Immunization History Date of Tetanus Vaccine: PT STATES UNSURE Date of Influenza Vaccine: NONE Infectious Disease History: No Infectious Disease History: Denies: Hx Clostridium Difficile, Hx Hepatitis, Hx Human Immunodeficiency Virus (HIV), Hx Shingles, Hx Tuberculosis, Traveled Outside the [place] in Last 30 Days - Family History Known Family History: Positive: Cardiac Disease - Father, Other - father - colon ca, h/o ETOH abuse; mom- alzheimer's dz - Social History Occupation: Disabled Alcohol Use: Daily Alcohol Amount: 3+ glasses 5-6x wk Hx Substance Use: No Substance Use Type: Reports: None Substance Use Comment - Amount & Last Used: pt aware of mental & physical risks of etoh, not willing/ready to change Hx Tobacco Use: Yes Smoking Status (MU): Heavy Every Day Tobacco Smoker Type: Cigarettes Have You Smoked in the Last Year: Yes Review of Systems Negative: Fever Negative: Other - Neck Pain Negative: Headache All Other Systems Reviewed And Are Negative: Yes Physical Exam - Summary Physical Exam Summary: VITAL SIGNS: Reviewed. GENERAL: ~Patient is a well developed and nourished female who is lying comfortable in the stretcher. ~Patient is not in any acute respiratory distress. HEAD AND FACE: Abrasion forehead and nasal breach EYES: PERRLA, EOMI x 2. EARS: Hearing grossly intact. MOUTH: Oropharynx within normal limits. NECK: Supple, trachea is midline, no adenopathy, no JVD, no carotid bruit. CHEST: Symmetric, no tenderness at palpation LUNGS: Clear to auscultation bilaterally. No wheezing or crackles. CVS: Regular rate and rhythm, S1 and S2 present, no murmurs or gallops appreciated. ABDOMEN: Soft, non-tender. Bowel sounds are normal. No abdominal abnormal pulsations. EXTREMITIES: Full ROM in all major joints, no edema, no cyanosis or clubbing. NEURO: Alert and oriented x 3. No acute neurological deficits. Speech is normal and follows commands. GCS is 15 SKIN: Dry and warm Triage Information Reviewed: Yes Vital Signs On Initial Exam: Initial Vitals Temp Pulse Resp BP Pulse Ox 97.7 F 95 18 108/54 98 06/01/16 14:44 06/01/16 14:44 06/01/16 14:44 06/01/16 14:44 06/01/16 14:44 Vital Signs Reviewed: Yes - Low Coma Scale Coma Scale Total: 15 Diagnostics - Vital Signs Vital Signs Temp Pulse Resp BP Pulse Ox 06/01/16 14:46 76 108/54 94 06/01/16 14:44 97.7 F 95 18 108/54 98 - Laboratory Lab Statement: Any lab studies that have been ordered have been reviewed, and results considered in the medical decision making process. - CT Brain CT CT Interpretation: Positive (See Comments) - IMPRESSION: There is no evidence of intracranial mass or hemorrhage noted. CT Interpretation Completed By: Radiologist Cervical Spine CT CT Interpretation: Positive (See Comments) - IMPRESSION: NO FRACTURE IS NOTED. DEGENERATIVE DISC DISEASE IS NOTED AT THE ATLANTOAXIAL JOINT, C5-C6 AND C6-C7. CT Interpretation Completed By: Radiologist Maxillofacial CT CT Interpretation: Positive (See Comments) - IMPRESSION: No fracture of the facial bones is identified. CT Interpretation Completed By: Radiologist Head Injury Course/Dx Course Of Treatment: 66 y/o female presents to the ED with a head injury after tripping and falling forward outside while getting her mail today. Pt denies any SOLIS, neck pain, or LOC. Pt takes no medications. Pt smokes tobacco and drinks EtOH. Pt states she had 4 beers today. Assessment/Plan: Patient has remain stable in ED. She is confortale and has no pain. Brain CT shows IMPRESSION: There is no evidence of intracranial mass or hemorrhage noted. Cervical Spine CT shows IMPRESSION: NO FRACTURE IS NOTED. DEGENERATIVE DISC DISEASE IS NOTED AT THE ATLANTOAXIAL JOINT, C5-C6 AND C6-C7. Maxilliofacial CT shows IMPRESSION: No fracture of the facial bones is identified. Pt did not have a laceration, forehead only had an abrasion so no need for suturing. Pt was allergic to tetanus. Her last tetanus vaccine was one year ago when she developed the allegic reaction. Pt is A + O x 3 and hemodynamically stable. She is ambulationg with good steady walk. She is sober and she has no other complaints. She will go home with recommendation to follow up with PCP. I discussed all the findings and test results with the patient. Patient was instructed to return to the emergency room immediately if any of the symptoms return or worsens. Patient understands and agrees. Plan of care was discussed with the patient and patient understands and agrees with the plan of care. All questions were answered at patient satisfaction. There were no further complaints or concerns. Patient is alert and oriented x 3. Patient vital signs are stable. Patient is to follow up with primary care physician in the next 2 to 3 days. Patient understands and agrees. - Diagnoses Differential Diagnosis/HQI/PQRI: Cerebral Contusion, Cervical Sprain, Concussion Without LOC, Nasal Fracture, Orbital Fracture Provider Diagnoses: Scalp contusion, Facial contusion, Abrasion head Discharge - Discharge Plan Condition: Stable Disposition: HOME Patient Education Materials: Scalp Contusion in Adults (ED), Fall Prevention ( ED) Referrals: Dorcas Chan, TAX RECORD CLERK [Primary Care Provider] - The documentation as recorded by the Andrea juan Alok accurately reflects the service I personally performed and the decisions made by Syed luke Walter, MD.
== END 2016-06-01 16:31 | disposition home or self-care (01) ==
LOC: ED 14:30
DX: S00.03XA Contusion of scalp, initial encounter (principal); S00.83XA Contusion of other part of head, initial encounter; S00.91XA Abrasion of unspecified part of head, initial encounter; S09.90XA Unspecified injury of head, initial encounter; W01.0XXA Fall on same level from slipping, tripping and stumbling without subsequent striking against object, initial encounter; Y93.9 Activity, unspecified; Y92.9 Unspecified place or not applicable; F17.210 Nicotine dependence, cigarettes, uncomplicated
CPT/HCPCS: 70450; 70486; 72125; 90471; 90715; 99282

== ENCOUNTER 2016-06-12 19:15 | Emergency (ER) | payer MEDICARE, MEDICAID ==
[2016-06-12] MEDS ORDERED: Acetaminophen TAB* 325 MG PO ONE (19:53)
--- NOTE | 2016-06-12 20:33 | RAD ---
INDICATION: Fall COMPARISON: Most recent comparison chest x-ray dated December 26, 1959 TECHNIQUE: PA and lateral views of the chest were obtained. FINDINGS: The heart and mediastinum are normal in size and contour. There is calcified atherosclerosis at the arch of the aorta similar to that seen on the previous chest x-ray. There is stable ectatic curvature of the thoracic spine as well. The lungs are hyperaerated with flattened diaphragm and increased retrosternal airspace. Otherwise the lungs are grossly clear. There is no evidence of large pleural effusion. Visualized bones are normal for the patient's age. There is no radiographic evidence of free air beneath the diaphragm IMPRESSION: No radiographic evidence of acute cardiopulmonary disease.
--- NOTE | 2016-06-12 20:34 | ED ---
Marquita, DoctorCindi, scribed for El Jones MD on 06/12/16 at 1955 . Head Injury - HPI Summary HPI Summary: 66 year old female arrived to [facility] after falling back on the right side of her head around 1500 today. Pt reports pain in the head as well as in her arm and shoulder; she states that she likely lost consciousness. Pt was drinking ( reports 3 drinks prior to her fall). She has a PMHx of HLD and HTN; she is a heavy every day smoker and drinker. - History Of Current Complaint Chief Complaint: EDHeadInjury Stated Complaint: FALL Time Seen by Provider: 06/12/16 19:47 Hx Obtained From: Patient Onset/Duration: Started Hours Ago, Still Present Onset of Pain: Hours Severity Currently: Moderate Severity Initially: Moderate Associated Signs And Symptoms: LOC Duration Unknown, Other: - head, arm, and shoulder pain - Allergies/Home Medications Allergies/Adverse Reactions: Allergies Allergy/AdvReac Type Severity Reaction Status Date / Time Doxycycline Allergy Intermediate Swelling Verified 12/26/15 21:09 Gabapentin [From Neurontin] Allergy Intermediate Swelling Verified 12/26/15 21: 09 Prednisone Allergy Intermediate Hives Verified 12/26/15 21:09 PMH/Surg Hx/FS Hx/Imm Hx Endocrine/Hematology History: Reports: Hx Anemia Denies: Hx Anticoagulant Therapy, Hx Blood Disorders, Hx Blood Transfusions, Hx Bone Marrow Disease, Hx Diabetes, Hx Systemic Lupus Erythematosus, Hx Sickle Cell Disease, Hx Thyroid Disease, Hx Unexplained Bleeding, Other Endocrine/ Hematological Disorders Cardiovascular History: Reports: Hx Angina, Hx Hypercholesterolemia - hx of, Hx Hypertension, Other Cardiovascular Problems/Disorders - carotid endarterectomy; hx of murmur Denies: Hx Aneurysm, Hx Angioplasty, Hx Auto Implanted Cardiovert Defib, Hx Cardiac Arrest, Hx Cardiomegaly, Hx Congenital Heart Disease, Hx Congestive Heart Failure, Hx Coronary Artery Disease, Hx Deep Vein Thrombosis, Hx Embolism , Hx Hypotension, Hx Pacemaker/ICD, Hx Peripheral Vascular Disease, Hx Rheumatic Fever, Hx Syncope, Hx Valvular Heart Disease Respiratory History: Reports: Hx Chronic Bronchitis, Hx Chronic Obstructive Pulmonary Disease (COPD), Hx Pneumonia, Other Respiratory Problems/Disorders - SMOAKER Denies: Hx Asthma, Hx Cystic Fibrosis, Hx Lung Cancer, Hx Pleural Effusion, Hx Pulmonary Edema, Hx Pulmonary Embolism, Hx Seasonal Allergies, Hx Sleep Apnea GI History: Reports: Hx Gastroesophageal Reflux Disease, Hx Irritable Bowel, Hx Ulcer, Other GI Disorders - adhesions Denies: Hx Cirrhosis, Hx Crohn's Disease, Hx Diverticulosis, Hx Gall Bladder Disease, Hx Gastrointestinal Bleed, Hx Hiatal Hernia, Hx Jaundice, Hx Obstructive Bowel, Hx Ileostomy, Hx Pyloric Stenosis History: Reports: Other Problems/Disorders - hx of UTI Denies: Hx Acute Renal Failure, Hx Benign Prostatic Hyperplasia, Hx Chronic Renal Failure, Hx Dialysis, Hx Kidney Infection, Hx Kidney Stones, Hx Renal Disease Musculoskeletal History: Reports: Hx Arthritis - osteo arthritis, Hx Orthopedic Injury - broken fingers, Other Musculoskeletal History - Past injury to R hand. Denies: Hx Back Problems, Hx Bursitis, Hx Congenital Bone Abnormalities, Hx Fibromyalgia, Hx Gout, Hx Osteoporosis, Hx Scoliosis, Hx Tendonitis Sensory History: Reports: Hx Contacts or Glasses, Hx Vision Problem, Other Sensory Impairments - floaters Denies: Hx Cataracts, Hx Eye Injury, Hx Eye Prosthesis, Hx Glaucoma, Hx Macular Degeneration, Hx Deafness, Hx Hearing Aid, Hx Hearing Problem Opthamlomology History: Reports: Hx Contacts or Glasses, Hx Vision Problem, Other Sensory Impairments - floaters Denies: Hx Cataracts, Hx Eye Injury, Hx Eye Prosthesis, Hx Glaucoma, Hx Macular Degeneration Neurological History: Reports: Hx Headaches - JUST RECENTLY, Hx Seizures Denies: Hx Dementia, Hx Developmental Delay, Hx Migraine, Hx Spinal Cord Injury, Hx Transient Ischemic Attacks (TIA), Other Neuro Impairments/Disorders Psychiatric History: Reports: Hx Anxiety, Hx Depression, Hx Panic Disorder - PTSD, Hx Post Traumatic Stress Disorder, Hx Inpatient Treatment, Hx Community Mental Health Tx, Hx Suicide Attempt, Hx Substance Abuse - ETOH, Other Psychiatric Issues/Disorders Denies: Hx Attention Deficit Hyperactivity Disorder, Hx Eating Disorder, Hx Schizophrenia, Hx Bipolar Disorder, Hx of Violent Episodes Against Others - Surgical History Surgery Procedure, Year, and Place: TONSILECTOMY ; APPENDECTOMY; X2 ; TUBAL LIGATION; CAROTID ENDERECTOMY (NO STENTINGS) Hx Anesthesia Reactions: Yes - EATHER CAUSED VOMITING - Immunization History Date of Tetanus Vaccine: PT STATES UNSURE Date of Influenza Vaccine: NONE Infectious Disease History: No Infectious Disease History: Denies: Hx Clostridium Difficile, Hx Hepatitis, Hx Human Immunodeficiency Virus (HIV), Hx Shingles, Hx Tuberculosis, Traveled Outside the [place] in Last 30 Days - Family History Known Family History: Positive: Cardiac Disease - Father, Other - father - colon ca, h/o ETOH abuse; mom- alzheimer's dz - Social History Alcohol Use: Daily Alcohol Amount: 3+ glasses 5-6x wk Hx Substance Use: No Substance Use Type: Reports: None Substance Use Comment - Amount & Last Used: pt aware of mental & physical risks of etoh, not willing/ready to change Hx Tobacco Use: Yes Smoking Status (MU): Heavy Every Day Tobacco Smoker Type: Cigarettes Have You Smoked in the Last Year: Yes Review of Systems Negative: Fever Positive: Other - pain in the head, arm, and shoulder Neurological: Other - LOC earlier today, since resolved All Other Systems Reviewed And Are Negative: Yes Physical Exam Triage Information Reviewed: Yes Vital Signs On Initial Exam: Initial Vitals Temp Pulse Resp BP Pulse Ox 99 F 86 18 116/77 94 06/12/16 19:40 06/12/16 19:40 06/12/16 19:40 06/12/16 19:40 06/12/16 19:40 Vital Signs Reviewed: Yes Appearance: Positive: No Pain Distress, Thin Skin: Positive: Warm Head/Face: Positive: Normal Head/Face Inspection Eyes: Positive: EOMI, SIMBA ENT: Positive: Hearing grossly normal Neck: Positive: Supple Respiratory/Lung Sounds: Positive: Clear to Auscultation, Breath Sounds Present Cardiovascular: Positive: RRR Abdomen Description: Positive: Nontender, Soft Musculoskeletal: Positive: Strength/ROM Intact Neurological: Positive: Alert, Oriented to Person Place, Time Psychiatric: Positive: Affect/Mood Appropriate Diagnostics - Vital Signs Vital Signs Temp Pulse Resp BP Pulse Ox 06/12/16 19:43 99 F 86 18 116/77 94 06/12/16 19:40 99 F 86 18 116/77 94 - Laboratory Lab Statement: Any lab studies that have been ordered have been reviewed, and results considered in the medical decision making process. - Radiology CXR Radiology Interpretation Completed By: Radiologist - IMPRESSION: No radiographic evidence of acute cardiopulmonary disease. Re-Evaluation - Re-Evaluation First Eval Change: Improved Head Injury Course/Dx - Diagnoses Provider Diagnoses: Fall Discharge - Discharge Plan Condition: Stable Disposition: HOME Patient Education Materials: Fall Prevention for Older Adults (ED) Referrals: Dorcas Chan NP [Primary Care Provider] - The documentation as recorded by the Doctor juan Tahera accurately reflects the service I personally performed and the decisions made by me, El Jones MD.
[2016-06-12 22:09] VITALS: BP 107/63
== END 2016-06-12 22:07 | disposition home or self-care (01) ==
LOC: ED 19:15
DX: S09.90XA Unspecified injury of head, initial encounter (principal); W18.30XA Fall on same level, unspecified, initial encounter; I10 Essential (primary) hypertension; M25.511 Pain in right shoulder; F17.290 Nicotine dependence, other tobacco product, uncomplicated
CPT/HCPCS: 71020; 99282; A9270-GY

== ENCOUNTER 2016-06-18 20:57 | Emergency (ER) | payer MEDICARE, MEDICAID ==
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
[2016-06-18 21:26] LABS: Hematocrit 42 % (35-47); Hemoglobin 14.3 g/dl (12.0-16.0); Mean Corpuscular HGB Conc 34 g/dl (31-36); Mean Corpuscular Hemoglobin 37 pg (27-31); Mean Platelet Volume 8 um3 (7.4-10.4); Red Blood Count 3.82 10^6/ul (4.0-5.4); Red Cell Distribution Width 15 % (10.5-15)
[2016-06-18 21:32] LABS: Comments Flag Yes; Mean Corpuscular Volume 109 fL (80-97)
[2016-06-18 21:49] LABS: BUN/Creatinine Ratio 12.2 (8-20); Calcium 8.5 mg/dL (8.6-10.3); EGFR African American 200.2 (>60); EGFR Non-African American 155.7 (>60); Potassium 3.5 mmol/L (3.5-5.0)
[2016-06-18] MEDS ORDERED: Ondansetron ODT TAB* 4 MG ONE (23:12)
[2016-06-19 06:02] VITALS: BP 105/58
== END 2016-06-19 06:19 | disposition home or self-care (01) ==
LOC: ED 20:57
DX: F10.10 Alcohol abuse, uncomplicated (principal); F17.210 Nicotine dependence, cigarettes, uncomplicated
CPT/HCPCS: 36415; 80048; 80320; 85025; 99282; G0480

== ENCOUNTER 2016-06-20 13:59 | Emergency (ER) | payer MEDICARE, MEDICAID ==
--- NOTE | 2016-06-20 15:38 | RAD ---
HISTORY: Trauma COMPARISONS: June 01, 2016 TECHNIQUE: Multiple contiguous axial CT scans were obtained of the cervical spine without intravenous contrast, with coronal and sagittal multiplanar reformations. FINDINGS: BRAIN: The visualized brain is unremarkable CENTRAL CANAL: Evaluation of the central canal is limited on CT technique; however, there is no obvious canalicular mass or epidural hemorrhage. ALIGNMENT: There is a scoliotic curvature of the spine VERTEBRAL BODIES: There is diffuse osteopenia. There is no displaced fracture. There is mild anterolateral marginal osteophyte formation. JOINTS: There is uncovertebral and facet hypertrophic change MUSCULATURE: Unremarkable INTERVERTEBRAL DISCS: There is diffuse loss of intervertebral disc height. AXIAL IMAGES: There is stable degenerative change of the cervical spine without significant neural foraminal narrowing or central canal stenosis. SOFT TISSUES: There is extensive atherosclerosis of the aortic arch and the carotid arteries. OTHER: None. IMPRESSION: OSTEOPENIA. DEGENERATIVE DISC DISEASE AND OSTEOARTHRITIS. ATHEROSCLEROSIS. NO ACUTE OSSEOUS INJURY TO THE CERVICAL SPINE
--- NOTE | 2016-06-20 15:39 | RAD ---
INDICATION: Mechanical fall. Intracranial injury. COMPARISON: June 01, 2016 TECHNIQUE: Noncontrast axial source images were acquired from the skull base to the vertex. FINDINGS: Ventricles/sulci: The ventricles and cisterns are normal in size and configuration for age. Brain parenchyma: There is no focal parenchymal finding, evidence of intracranial mass, or intracranial mass effect. Intracranial hemorrhage:None. Extra-axial spaces: There are no abnormal extra axial fluid collections or evidence of extra-axial mass. Calvarium: There is no calvarial fracture or other calvarial abnormality. Scalp: There is no evidence of scalp or extracalvarial soft tissue abnormality. Paranasal sinuses/mastoid: The paranasal sinuses and mastoid air cells are clear. Other: None. IMPRESSION: NEGATIVE EXAMINATION
[2016-06-20 16:00] LABS: Hematocrit 42 % (35-47); Hemoglobin 14.5 g/dl (12.0-16.0); Mean Corpuscular HGB Conc 34 g/dl (31-36); Mean Corpuscular Hemoglobin 38 pg (27-31); Red Blood Count 3.82 10^6/ul (4.0-5.4); Red Cell Distribution Width 15 % (10.5-15); White Blood Count 4.9 10^3/ul (3.5-10.8)
[2016-06-20 16:02] LABS: Comments Flag Yes
[2016-06-20 16:03] LABS: Add Diff/Slide Review? Slide Review Added; Mean Corpuscular Volume 111 fL (80-97)
[2016-06-20 16:15] LABS: ALT 17 U/L (7-52); Albumin 3.6 g/dL (3.2-5.2); Alkaline Phosphatase 71 U/L (34-104); Blood Urea Nitrogen 9 mg/dL (6-24); C Reactive Protein < 1.00 mg/L (< 5.00); CO2 Carbon Dioxide 30 mmol/L (22-32); Calcium 8.8 mg/dL (8.6-10.3); Chloride 101 mmol/L (101-111); EGFR African American 159.2 (>60); EGFR Non-African American 123.8 (>60); Globulin 2.5 g/dL (2-4); Glucose 77 mg/dL (70-100); Sodium 137 mmol/L (133-145); Total Protein 6.1 g/dL (6.4-8.9)
[2016-06-20 16:18] LABS: AST 52 U/L (13-39); Anion Gap 6 mmol/L (2-11); Potassium 4.4 mmol/L (3.5-5.0)
[2016-06-20 16:21] LABS: Mean Platelet Volume 9 um3 (7.4-10.4)
[2016-06-20 16:29] LABS: Alcohol 279 mg/dL (<10)
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
[2016-06-20] MEDS ORDERED: LORazepam TAB(*) 1 MG PO ONE (18:46)
[2016-06-20 22:00] VITALS: BP 99/59
== END 2016-06-20 22:31 | disposition home or self-care (01) ==
LOC: ED 13:59
DX: S01.81XA Laceration without foreign body of other part of head, initial encounter (principal); F10.129 Alcohol abuse with intoxication, unspecified; W19.XXXA Unspecified fall, initial encounter; Y90.8 Blood alcohol level of 240 mg/100 ml or more; Y93.9 Activity, unspecified; Y92.9 Unspecified place or not applicable; Y99.9 Unspecified external cause status; F17.210 Nicotine dependence, cigarettes, uncomplicated
CPT/HCPCS: 36415; 70450; 72125; 80053; 80320; 85025; 85060; 85610; 86140; 99281; A9270-GY; G0480

== ENCOUNTER 2016-06-25 02:18 | Observation (INO) | payer MEDICARE, MEDICAID ==
[2016-06-25] MEDS ORDERED: NS 0.9% 1000 ML* 2,000 ML IV ONE (05:32)
[2016-06-25 05:55] LABS: Hematocrit 35 % (35-47); Mean Corpuscular HGB Conc 34 g/dl (31-36); Mean Corpuscular Hemoglobin 38 pg (27-31); Mean Platelet Volume 8 um3 (7.4-10.4); Red Blood Count 3.14 10^6/ul (4.0-5.4); Red Cell Distribution Width 16 % (10.5-15)
[2016-06-25 05:56] LABS: Comments Flag Yes; Mean Corpuscular Volume 111 fL (80-97)
[2016-06-25 06:14] LABS: ALT 12 U/L (7-52); AST 34 U/L (13-39); Albumin 3.1 g/dL (3.2-5.2); Alkaline Phosphatase 60 U/L (34-104); Anion Gap 11 mmol/L (2-11); BUN/Creatinine Ratio 8.7 (8-20); Blood Urea Nitrogen 4 mg/dL (6-24); C Reactive Protein < 1.00 mg/L (< 5.00); CO2 Carbon Dioxide 22 mmol/L (22-32); Chloride 102 mmol/L (101-111); EGFR African American 175.3 (>60); EGFR Non-African American 136.3 (>60); Glucose 103 mg/dL (70-100); Lipase 23 U/L (11.0-82.0); Magnesium 1.3 mg/dL (1.9-2.7); Potassium 3.1 mmol/L (3.5-5.0); Sodium 135 mmol/L (133-145); Total Protein 5.1 g/dL (6.4-8.9); Troponin I 0.01 ng/mL (<0.04)
[2016-06-25 07:00] LABS: Calcium 8.1 mg/dL (8.6-10.3)
[2016-06-25 07:23] LABS: Acetaminophen < 15 mcg/mL; Alcohol 275 mg/dL (<10)
[2016-06-25] MEDS ORDERED: Thiamine IV* 100 MG, Folic Acid IV* 1 MG, Multiple Vitamin IV ADULT* 10 ML in NS 0.9% 1... IV ONE (08:01)
[2016-06-25] MEDS ORDERED: Magnesium Sulfate 2 GM IV* 2 GM/50 ML BAG IVPB ONE ×2 (08:01→12:15)
--- NOTE | 2016-06-25 08:19 | RAD ---
Indication: Head injury after fall. Comparison is made with previous exam dated June 20, 2016 CT of the brain was performed without IV contrast. Coronal and sagittal reconstructed images were obtained. Ventricular structures are midline. No midline shift is noted. There is central and cortical atrophy noted. There is no evidence of intracranial mass or hemorrhage. No other high or low density lesions are identified. Brainstem and posterior fossa are unremarkable. Mastoid air cells and paranasal sinuses are grossly unremarkable. No calvarial injury is noted. IMPRESSION: No intracranial mass or hemorrhage is noted.
--- NOTE | 2016-06-25 08:32 | RAD ---
Indication: Neck injury. CT of the cervical spine was obtained in the axial plane. Sagittal and coronal reconstructed images were obtained. The skull base demonstrates mastoid air cells to be well aerated. No fractures noted. The C1 ring is intact. The vertebral bodies appear normal in height and alignment. No evidence of compression fracture is noted. Degenerative changes of the atlantoaxial joint is noted. Spinal canal appears to be intact. At C2-C3 there is no disc protrusion. Left facet arthropathy is noted. No central or foraminal stenosis is noted. At C3-C4 no focal protrusion is identified. No central or foraminal stenosis is noted. At C4-C5 no focal protrusion is noted. No central or foraminal stenosis is noted. Left facet arthropathy is noted. At C5-C6 spondylitic ridge flattens the thecal sac. No central or foraminal stenosis is noted. At C6-C7 degenerative disc disease is noted. No central or foraminal stenosis is identified. Schmorl's node is noted in the cecum superior endplate of C6 and C7 which are unchanged since previous exam. IMPRESSION: No fracture of the cervical spine is noted. No change is noted since previous exam of June 20, 2016.
--- NOTE | 2016-06-25 08:43 | ED ---
Andrea Juárez Alok, scribed for Milind Stein MD on 06/25/16 at 0243 . Head Injury - HPI Summary HPI Summary: 66 y/o female presents to the ED BIBA with a laceration at the back of the head. Pt is actively bleeding and does not remember falling. Pt last remembers being in bed. Pt states she last had a different laceration stapled at the front of her head last week. Pt drinks ETOH daily. - History Of Current Complaint Chief Complaint: EDHeadInjury Stated Complaint: HEAD LAC Time Seen by Provider: 06/25/16 02:23 Hx Obtained From: Patient Onset/Duration: Started Minutes Ago Onset of Pain: Immediate Severity Currently: Moderate Severity Initially: Moderate Pain Intensity: 0 Pain Scale Used: 0-10 Numeric Location of Head Injury: Occipital Location: Discrete At: - Back of head Character: Other: - Laceration Associated Signs And Symptoms: Negative - Allergies/Home Medications Allergies/Adverse Reactions: Allergies Allergy/AdvReac Type Severity Reaction Status Date / Time Doxycycline Allergy Intermediate Swelling Verified 12/26/15 21:09 Gabapentin [From Neurontin] Allergy Intermediate Swelling Verified 12/26/15 21: 09 Prednisone Allergy Intermediate Hives Verified 12/26/15 21:09 PMH/Surg Hx/FS Hx/Imm Hx Endocrine/Hematology History: Reports: Hx Anemia Denies: Hx Anticoagulant Therapy, Hx Blood Disorders, Hx Blood Transfusions, Hx Bone Marrow Disease, Hx Diabetes, Hx Systemic Lupus Erythematosus, Hx Sickle Cell Disease, Hx Thyroid Disease, Hx Unexplained Bleeding, Other Endocrine/ Hematological Disorders Cardiovascular History: Reports: Hx Angina, Hx Hypercholesterolemia - hx of, Hx Hypertension, Other Cardiovascular Problems/Disorders - carotid endarterectomy; hx of murmur Denies: Hx Aneurysm, Hx Angioplasty, Hx Auto Implanted Cardiovert Defib, Hx Cardiac Arrest, Hx Cardiomegaly, Hx Congenital Heart Disease, Hx Congestive Heart Failure, Hx Coronary Artery Disease, Hx Deep Vein Thrombosis, Hx Embolism , Hx Hypotension, Hx Pacemaker/ICD, Hx Peripheral Vascular Disease, Hx Rheumatic Fever, Hx Syncope, Hx Valvular Heart Disease Respiratory History: Reports: Hx Chronic Bronchitis, Hx Chronic Obstructive Pulmonary Disease (COPD), Hx Pneumonia, Other Respiratory Problems/Disorders - SMOAKER Denies: Hx Asthma, Hx Cystic Fibrosis, Hx Lung Cancer, Hx Pleural Effusion, Hx Pulmonary Edema, Hx Pulmonary Embolism, Hx Seasonal Allergies, Hx Sleep Apnea GI History: Reports: Hx Gastroesophageal Reflux Disease, Hx Irritable Bowel, Hx Ulcer, Other GI Disorders - adhesions Denies: Hx Cirrhosis, Hx Crohn's Disease, Hx Diverticulosis, Hx Gall Bladder Disease, Hx Gastrointestinal Bleed, Hx Hiatal Hernia, Hx Jaundice, Hx Obstructive Bowel, Hx Ileostomy, Hx Pyloric Stenosis History: Reports: Other Problems/Disorders - hx of UTI Denies: Hx Acute Renal Failure, Hx Benign Prostatic Hyperplasia, Hx Chronic Renal Failure, Hx Dialysis, Hx Kidney Infection, Hx Kidney Stones, Hx Renal Disease Musculoskeletal History: Reports: Hx Arthritis - osteo arthritis, Hx Orthopedic Injury - broken fingers, Other Musculoskeletal History - Past injury to R hand. Denies: Hx Back Problems, Hx Bursitis, Hx Congenital Bone Abnormalities, Hx Fibromyalgia, Hx Gout, Hx Osteoporosis, Hx Scoliosis, Hx Tendonitis Sensory History: Reports: Hx Contacts or Glasses, Hx Vision Problem, Other Sensory Impairments - floaters Denies: Hx Cataracts, Hx Eye Injury, Hx Eye Prosthesis, Hx Glaucoma, Hx Macular Degeneration, Hx Deafness, Hx Hearing Aid, Hx Hearing Problem Opthamlomology History: Reports: Hx Contacts or Glasses, Hx Vision Problem, Other Sensory Impairments - floaters Denies: Hx Cataracts, Hx Eye Injury, Hx Eye Prosthesis, Hx Glaucoma, Hx Macular Degeneration Neurological History: Reports: Hx Headaches - JUST RECENTLY, Hx Seizures Denies: Hx Dementia, Hx Developmental Delay, Hx Migraine, Hx Spinal Cord Injury, Hx Transient Ischemic Attacks (TIA), Other Neuro Impairments/Disorders Psychiatric History: Reports: Hx Anxiety, Hx Depression, Hx Panic Disorder - PTSD, Hx Post Traumatic Stress Disorder, Hx Inpatient Treatment, Hx Community Mental Health Tx, Hx Suicide Attempt, Hx Substance Abuse - ETOH, Other Psychiatric Issues/Disorders Denies: Hx Attention Deficit Hyperactivity Disorder, Hx Eating Disorder, Hx Schizophrenia, Hx Bipolar Disorder, Hx of Violent Episodes Against Others - Surgical History Surgery Procedure, Year, and Place: TONSILECTOMY ; APPENDECTOMY; X2 ; TUBAL LIGATION; CAROTID ENDERECTOMY (NO STENTINGS) Hx Anesthesia Reactions: Yes - EATHER CAUSED VOMITING - Immunization History Date of Tetanus Vaccine: PT STATES UNSURE Date of Influenza Vaccine: NONE Infectious Disease History: Yes Infectious Disease History: Denies: Hx Clostridium Difficile, Hx Hepatitis, Hx Human Immunodeficiency Virus (HIV), Hx Shingles, Hx Tuberculosis, Traveled Outside the [place] in Last 30 Days - Family History Known Family History: Positive: Cardiac Disease - Father, Other - father - colon ca, h/o ETOH abuse; mom- alzheimer's dz - Social History Occupation: Disabled Alcohol Use: Daily Alcohol Amount: 3+ glasses 5-6x wk Hx Substance Use: No Substance Use Type: Reports: None Substance Use Comment - Amount & Last Used: pt aware of mental & physical risks of etoh, not willing/ready to change Hx Tobacco Use: Yes Smoking Status (MU): Heavy Every Day Tobacco Smoker Type: Cigarettes Have You Smoked in the Last Year: Yes Review of Systems Negative: Fever Positive: Other - Laceration back of head All Other Systems Reviewed And Are Negative: Yes Physical Exam Triage Information Reviewed: Yes Vital Signs On Initial Exam: Initial Vitals Temp Pulse Resp BP Pulse Ox 97.8 F 93 18 103/70 95 06/25/16 02:32 06/25/16 02:32 06/25/16 02:32 06/25/16 02:32 06/25/16 02:32 Vital Signs Reviewed: Yes Appearance: Positive: Well-Appearing, No Pain Distress Skin: Positive: Warm, Skin Color Reflects Adequate Perfusion, Dry, Other - Laceration head occipital area 2.5 cm Head/Face: Positive: Other - Laceration head occipital area 2.5 cm Eyes: Positive: EOMI, SIMBA ENT: Positive: Normal ENT inspection Neck: Positive: Supple, Nontender Respiratory/Lung Sounds: Positive: Clear to Auscultation, Breath Sounds Present Cardiovascular: Positive: RRR Abdomen Description: Positive: Nontender, Soft Bowel Sounds: Positive: Present Musculoskeletal: Positive: Normal, Strength/ROM Intact Neurological: Positive: Normal, Sensory/Motor Intact, Alert, Oriented to Person Place, Time Psychiatric: Positive: Affect/Mood Appropriate Procedures - Laceration/Wound Repair 1 Location: head Description: Linear Length, Depth and Shape: 2.5 cm occipital area head Closure: May #__ - 5 Diagnostics - Vital Signs Vital Signs Temp Pulse Resp BP Pulse Ox 06/25/16 02:32 97.8 F 93 18 103/70 95 - Laboratory Lab Results: Lab Results 06/25/16 06/25/16 06/25/16 Range/Units 05:40 05:40 05:40 WBC 5.0 (3.5-10.8) 10^3/ul RBC 3.14 L (4.0-5.4) 10^6/ul Hgb 12.0 (12.0-16.0) g/dl Hct 35 (35-47) % MCV 111 H (80-97) fL MCH 38 H (27-31) pg MCHC 34 (31-36) g/dl RDW 16 H (10.5-15) % Plt Count 98 L (150-450) 10^3/ul MPV 8 (7.4-10.4) um3 Neut % (Auto) 59.1 (38-83) % Lymph % (Auto) 29.8 (25-47) % Laurel % (Auto) 7.2 (1-9) % Eos % (Auto) 1.9 (0-6) % Baso % (Auto) 2.0 (0-2) % Absolute Neuts (auto) 3.0 (1.5-7.7) 10^3/ul Absolute Lymphs (auto) 1.5 (1.0-4.8) 10^3/ul Absolute Monos (auto) 0.4 (0-0.8) 10^3/ul Absolute Eos (auto) 0.1 (0-0.6) 10^3/ul Absolute Basos (auto) 0.1 (0-0.2) 10^3/ul Absolute Nucleated RBC 0.01 10^3/ul Nucleated RBC % 0.2 INR (Anticoag Therapy) 1.12 H (0.89-1.11) APTT 35.6 (26.0-36.3) seconds Sodium 135 (133-145) mmol/L Potassium 3.1 L (3.5-5.0) mmol/L Chloride 102 (101-111) mmol/L Carbon Dioxide 22 (22-32) mmol/L Anion Gap 11 (2-11) mmol/L BUN 4 L (6-24) mg/dL Creatinine 0.46 L (0.51-0.95) mg/dL Est GFR ( Amer) 175.3 (>60) Est GFR (Non-Af Amer) 136.3 (>60) BUN/Creatinine Ratio 8.7 (8-20) Glucose 103 H (70-100) mg/dL Lactic Acid (0.5-2.0) mmol/L Calcium 8.1 L (8.6-10.3) mg/dL Magnesium 1.3 L (1.9-2.7) mg/dL Total Bilirubin 1.10 H (0.2-1.0) mg/dL AST 34 (13-39) U/L ALT 12 (7-52) U/L Alkaline Phosphatase 60 (34-104) U/L Troponin I 0.01 (<0.04) ng/mL C-Reactive Protein < 1.00 (< 5.00) mg/L B-Natriuretic Peptide ( - 100) pg/mL Total Protein 5.1 L (6.4-8.9) g/dL Albumin 3.1 L (3.2-5.2) g/dL Globulin 2.0 (2-4) g/dL Albumin/Globulin Ratio 1.6 (1-3) Lipase 23 (11.0-82.0) U/L Acetaminophen < 15 mcg/mL Serum Alcohol 275 H (<10) mg/dL Blood Type Antibody Screen Antibody Identification Direct Antiglob Test 06/25/16 06/25/16 06/25/16 Range/Units 05:40 05:40 05:40 WBC (3.5-10.8) 10^3/ul RBC (4.0-5.4) 10^6/ul Hgb (12.0-16.0) g/dl Hct (35-47) % MCV (80-97) fL MCH (27-31) pg MCHC (31-36) g/dl RDW (10.5-15) % Plt Count (150-450) 10^3/ul MPV (7.4-10.4) um3 Neut % (Auto) (38-83) % Lymph % (Auto) (25-47) % Laurel % (Auto) (1-9) % Eos % (Auto) (0-6) % Baso % (Auto) (0-2) % Absolute Neuts (auto) (1.5-7.7) 10^3/ul Absolute Lymphs (auto) (1.0-4.8) 10^3/ul Absolute Monos (auto) (0-0.8) 10^3/ul Absolute Eos (auto) (0-0.6) 10^3/ul Absolute Basos (auto) (0-0.2) 10^3/ul Absolute Nucleated RBC 10^3/ul Nucleated RBC % INR (Anticoag Therapy) (0.89-1.11) APTT (26.0-36.3) seconds Sodium (133-145) mmol/L Potassium (3.5-5.0) mmol/L Chloride (101-111) mmol/L Carbon Dioxide (22-32) mmol/L Anion Gap (2-11) mmol/L BUN (6-24) mg/dL Creatinine (0.51-0.95) mg/dL Est GFR ( Amer) (>60) Est GFR (Non-Af Amer) (>60) BUN/Creatinine Ratio (8-20) Glucose (70-100) mg/dL Lactic Acid 2.7 H* (0.5-2.0) mmol/L Calcium (8.6-10.3) mg/dL Magnesium (1.9-2.7) mg/dL Total Bilirubin (0.2-1.0) mg/dL AST (13-39) U/L ALT (7-52) U/L Alkaline Phosphatase (34-104) U/L Troponin I (<0.04) ng/mL C-Reactive Protein (< 5.00) mg/L B-Natriuretic Peptide 55 ( - 100) pg/mL Total Protein (6.4-8.9) g/dL Albumin (3.2-5.2) g/dL Globulin (2-4) g/dL Albumin/Globulin Ratio (1-3) Lipase (11.0-82.0) U/L Acetaminophen mcg/mL Serum Alcohol (<10) mg/dL Blood Type A Positive Antibody Screen Positive Antibody Identification Pending Direct Antiglob Test Pending Result Diagrams: 06/25/16 05:40 06/25/16 05:40 Lab Statement: Any lab studies that have been ordered have been reviewed, and results considered in the medical decision making process. Head Injury Course/Dx Course Of Treatment: NO CRITICAL CARE TIME. Assessment/Plan: DISPOSITION PENDING AT SHIFT CHANGE, STABLE. - Diagnoses Provider Diagnoses: Head injury, Alcohol intoxication, Scalp laceration Discharge - Discharge Plan Condition: Stable Disposition: OTHER Discharge Disposition Comment: Z The documentation as recorded by the Andrea juan Alok accurately reflects the service I personally performed and the decisions made by , Milind Stein MD.
[2016-06-25] MEDS ORDERED: Albuterol/Ipratropium NEB.SOL* Albuterol 2.5 MG/Ipratropium 0.5 MG 3 ML INH ONE (11:16)
[2016-06-25] MEDS ORDERED: methylPREDNISolone SOD SUCC* 125 MG 2 ML VIAL IV ONE (11:16)
[2016-06-25] MEDS ORDERED: Albuterol 2.5 MG/3 ML NEB.SOL* (0.083%) INH PRN (12:09)
[2016-06-25] MEDS ORDERED: Ondansetron INJ* 2 MG/ML VIAL IV PRN (12:09)
[2016-06-25] MEDS ORDERED: Potassium Chlor TAB* 20 MEQ TAB.ER PO ONE (12:15)
[2016-06-25 12:35] LABS: Urine Bacteria Absent (Absent); Urine Bilirubin Negative (Negative); Urine Glucose Negative (Negative); Urine Nitrite Negative (Negative)
--- NOTE | 2016-06-25 12:49 | RAD ---
INDICATION: Left shoulder injury. TECHNIQUE: 3 views of the left shoulder were obtained. FINDINGS: The bones are osteopenic. No acute fracture is seen. There is mild to moderate osteoarthritic change in the acromioclavicular and glenohumeral joint spaces. IMPRESSION: NO EVIDENCE OF FRACTURE.
--- NOTE | 2016-06-25 12:50 | RAD ---
Indication: Wheezing. Tobacco use. COPD. Comparison: June 12, 2016 Technique: Upright AP 1226 hours Report: Based on correlation with the prior exam the lung volumes are elevated. Patchy rarefaction of the upper lung zone interstitial markings. Accounting for superimposed soft tissues there is no focal pulmonary lesion, alveolar consolidation, pleural effusion, pneumothorax. Negative for cardiomegaly or prominence of the central pulmonary vasculature. Tortuous descending thoracic aorta and RIGHT convex thoracic scoliosis without gross change. IMPRESSION: Stigmata of chronic obstructive pulmonary disease and emphysema. No acute cardiopulmonary process evident.
[2016-06-25] MEDS: Albuterol/Ipratropium NEB.SOL* Albuterol 2.5 MG/Ipratropium 0.5 MG 3 ML INH SCH ×3 (13:23→19:55)
[2016-06-25] MEDS ORDERED: Azithromycin IV(*) 500 MG in NS 0.9% 250 ML* 250 ML IVPB SCH (14:00)
--- NOTE | 2016-06-25 14:53 | HP ---
HISTORY AND PHYSICAL: DATE OF ADMISSION: 06/25/16 PRIMARY CARE PROVIDER: Dorcas Chan NP ATTENDING PHYSICIAN WHILE IN THE HOSPITAL: Som White MD *(report dictated by Leonardo Robertson NP). CHIEF COMPLAINT: 1. Fall. 2. Cough. 3. Dyspnea on exertion. HISTORY OF PRESENTING ILLNESS: Ms. Bland is a 66-year-old female patient with a known history of COPD, angina, hypertension, IBS, arthritis, seizures, anxiety, depression, PTSD, and history of EtOH abuse. She states that she has been drinking on a daily basis over the last several weeks, does not quantify how much, but she does state that it is at least 3 glasses of wine a night and there are large osei jars are what she has been using. She states that she had fallen at some point today and she does not really remember how she got to the ER. Of note, her alcohol level was 275. While here, it was noted that she did appear to be mildly hypoxic on room air. In addition to this, she was found to be wheezing and have rhonchi on exam. The patient does state that she has been coughing, having a little bit more of a sore throat, but no fevers or chills that she knows of. Denies having any nausea, vomiting or any diarrhea. She states that she has been more short of breath particularly with exertion and she states she has been coughing some more, but not bringing up any mucus. She again was brought into the ER today because of a fall and she was found to have a laceration to her head, which was sutured and again it was noted that she had a significantly elevated alcohol level. The bigger concern again was her breathing and the hospitalist service was asked to evaluate for admission. PAST MEDICAL HISTORY: Significant for: 1. COPD. 2. Angina. 3. Hypertension. 4. IBS. 5. Arthritis. 6. Seizures. 7. Anxiety. 8. Depression. 9. PTSD. 10. EtOH abuse. PAST SURGICAL HISTORY: 1. She has had a carotid endarterectomy. 2. Appendectomy. 3. Tonsillectomy. 4. x2. 5. Tubal ligation. HOME MEDICATIONS: According to the list that we were able to obtain includes: 1. Spiriva 1 capsule inhaled daily. 2. Bactrim 1 tablet p.o. b.i.d. 3. Seroquel 50 mg to 100 mg p.o. at bedtime. 4. Potassium chloride 20 mEq p.o. b.i.d. 5. Magnesium oxide 500 mg p.o. daily. 6. Ativan 0.5 mg to 1 mg p.o. b.i.d. as needed. 7. Vitamin D3 2000 units p.o. daily. 8. Ventolin 2 puffs inhaled every 4 hours as needed. ALLERGIES TO MEDICATIONS: Include DOXYCYCLINE, GABAPENTIN and PREDNISONE. FAMILY HISTORY: Mother has a history of dementia. Father has a history of heart disease. SOCIAL HISTORY: She is a pack and a half a day smoker. She has been smoking for 40 plus years. She also again does state that she is drinking on a daily basis, minimally drinking 3 osei jars of wine a night. She denies any other drug use. Surrogate decision maker is her daughter, Gay. REVIEW OF SYSTEMS: There is no documented fever. She denied having any significant weight change. There was no double vision. There was no ear discharge. There was sore throat. There was rhinorrhea. There has been a cough. There is dyspnea on exertion. There is no orthopnea. No nocturnal dyspnea. There is no abdominal pain. No nausea or vomiting. No dysuria. No frequency. No loss of consciousness that she knows of, and no pruritus. Review of 14 systems completed, all others negative. PHYSICAL EXAMINATION GENERAL: At this time, Ms. Bland is a 66-year-old female patient. She is sitting in the ER stretcher. She does not appear to be in any acute distress. VITAL SIGNS: Reveals blood pressure 138/73 with a pulse of 98, respirations 16 , her O2 sat now on 2 L is 95%, temperature 97.8. HEENT: Head is atraumatic, normocephalic. Eyes: EOMs are intact. Sclerae anicteric and not pale. Throat: Oral mucosa appears to be dry. There is some erythema noted in the back of the throat. NECK: Supple. LUNGS: She had rhonchi throughout. She had wheezing in the upper lobes. She had equal diaphragmatic expansion. HEART: Sounds S1, S2. Regular rate and rhythm. No murmurs, rubs, or gallops. ABDOMEN: Soft, flat, nontender. Bowel sounds present. EXTREMITIES: Pulses are 2+ throughout. There is no peripheral edema. She is able to move all 4 extremities with 5/5 strength. NEUROLOGIC: The patient is awake. She is alert. She is oriented x3 now. No gross focal deficits. SKIN: Intact with the exception that she has got a laceration in the front of her forehead, which is sutured in place and appears to be clean, dry and intact. DIAGNOSTIC STUDIES/LAB DATA: Today reveal a WBC of 5.0, RBC of 3.14, hemoglobin 12.0, hematocrit 35, platelet count of 98. The INR of 1.12, PTT of 35.6, sodium 135, potassium 3.1, chloride of 102, bicarb 22, BUN 4, creatinine 0.46, glucose 103, lactate 2.7, calcium 8.1, mag 1.3, total bili 1.1, AST 34, ALT 12, alk phos 60, troponin 0.01. CRP less than 1. Albumin of 3.1, lipase 23 , toxicology showed alcohol level of 275. She had a brain cervical spine CT obtained today, which revealed no fractures of the cervical spine is noted. No change in previous exam. She had a brain CT today as well, which revealed no intracranial mass or hemorrhages noted. There was an EKG obtained today as well, shows a normal sinus rhythm with a rate of 82. No ST elevations or T-wave inversions. It is reviewed with a previous EKG, it appears to be similar. She has had an abdominal ultrasound just done here in April, which showed normal -sized liver, it is mildly echogenic consistent with fatty infiltration and demonstrates only minimal irregularity of the surface contour. No sonographic conspicuous focal lesions were noted, small volume of biliary sludge. Old medical records were reviewed. ASSESSMENT AND PLAN: Ms. Bland is a 66-year-old female patient coming into the ER today with complaints of a fall, which she does not really fully remember. In addition to this, coming in found to be mildly hypoxic and on exam found to be rhonchorous and having wheezing. Hospitalist service was asked to evaluate for admission. She will be admitted under observation status for: 1. EtOH abuse. Again at this point, I suspect the reason she came in with a fall was because she was intoxicated. Her alcohol level was again 275. My plan at this point is to go ahead and put her on the [facility] protocol. Social Work consult. She has had seizures before, so I will put her on standing Ativan and a banana bag has been given here in the ED. We will continue with folate and thiamine, and we will continue to follow. 2. Chronic obstructive pulmonary disease exacerbation. She does not have a white count or fever fortunately, but I would like to get a chest x-ray as one has not been completed. In addition to this, we will go ahead and put her on nebs round- the-clock, steroids, Dulera, and azithromycin for the time being, and we will continue to follow. I will also check for flu and I will get a Strep pneumoniae urine antigen and Legionella antigen as well. 3. Hypertension. She is currently not on any medications. Blood pressure is stable. We will monitor and start meds if we need to. 4. Irritable bowel syndrome. Continue meds as prescribed. 5. Arthritis. She will have p.r.n. Tylenol available. 6. History of seizure. We will continue again with the prophylactic Ativan and seizure precautions are ordered. 7. Anxiety. Ativan is in place. 8. Posttraumatic stress disorder and depression. Continue meds as prescribed. She is also on Seroquel. 9. Hypomagnesemia. At this point, I will replace her magnesium and we will follow. 10. Hypokalemia. We will replace this as well. 11. Elevated lactate. The lactate was 2.7, I do not see any obvious signs of infection. We will monitor and repeat this. 12. DVT prophylaxis. She will be placed on heparin subcu. 13. Thrombocytopenia. It is probably related to the EtOH abuse. I know I am putting her on heparin for DVT prophylaxis. We will monitor this and we will stop it if it does fall. 14. Code status. Full code. 15. Fluids, electrolytes, nutrition. She can have a regular diet. TIME SPENT: On the admission was 60 minutes, greater than half the time spent face- to-face with the patient, obtaining my history and physical, the other half the time spent going over the plan of care with the patient, implementing the plan of care. I did discuss the plan of care with my attending, Dr. White. He is in agreement. LEONARDO ROBERTSON NP CC: Dorcas Chan, DETECTOR CAR OPERATOR* [id number]/[facility] #: [id number] [facility]ERNelia
[2016-06-25] MEDS: methylPREDNISolone SOD SUCC* 40 MG/ML VIAL IV SCH ×2 (14:56→20:19)
[2016-06-25] MEDS: Heparin VIAL(*) 5000 UNITS/ML VIAL (FIVE THOUSAND) SUBCUT SCH ×2 (14:56→21:47)
[2016-06-25] MEDS: LORazepam TAB(*) 1 MG PO SCH ×4 (14:56→23:24)
[2016-06-25] MEDS: Mometasone/Formoter 200/5 MDI INH SCH (19:55)
[2016-06-25] MEDS ORDERED: QUEtiapine TAB* 25 MG PO SCH (21:00)
[2016-06-25] MEDS: Potassium Chlor TAB* 20 MEQ TAB.ER PO SCH (21:04)
[2016-06-25] MEDS: Acetaminophen TAB* 325 MG PO PRN (21:16)
[2016-06-25] MEDS: Nicotine GUM* 2 MG PO PRN (21:16)
[2016-06-26] MEDS: Albuterol/Ipratropium NEB.SOL* Albuterol 2.5 MG/Ipratropium 0.5 MG 3 ML INH SCH ×4 (00:33→12:49)
[2016-06-26] MEDS: LORazepam TAB(*) 1 MG PO SCH ×3 (01:21→06:51)
[2016-06-26] MEDS: Acetaminophen TAB* 325 MG PO PRN (01:52)
[2016-06-26] MEDS: methylPREDNISolone SOD SUCC* 40 MG/ML VIAL IV SCH ×2 (03:55→11:29)
[2016-06-26] MEDS: Heparin VIAL(*) 5000 UNITS/ML VIAL (FIVE THOUSAND) SUBCUT SCH (05:15)
[2016-06-26] MEDS: Nicotine GUM* 2 MG PO PRN ×2 (05:15→11:28)
[2016-06-26 05:56] LABS: Hematocrit 30 % (35-47); Hemoglobin 10.2 g/dl (12.0-16.0); Mean Corpuscular HGB Conc 34 g/dl (31-36); Mean Corpuscular Hemoglobin 38 pg (27-31); Mean Platelet Volume 9 um3 (7.4-10.4); Red Blood Count 2.68 10^6/ul (4.0-5.4); Red Cell Distribution Width 16 % (10.5-15); White Blood Count 5.3 10^3/ul (3.5-10.8)
[2016-06-26 06:02] LABS: Comments Flag Yes; Mean Corpuscular Volume 111 fL (80-97)
[2016-06-26 06:10] LABS: BUN/Creatinine Ratio 9.6 (8-20); Calcium 8.5 mg/dL (8.6-10.3); EGFR African American 152.2 (>60); EGFR Non-African American 118.3 (>60); Magnesium 1.5 mg/dL (1.9-2.7); Potassium 3.4 mmol/L (3.5-5.0)
[2016-06-26] MEDS ORDERED: Magnesium Sulf 4 GM/100 ML IV* 4,000 MG/100 ML BAG IVPB ONE (08:00)
[2016-06-26] MEDS: Mometasone/Formoter 200/5 MDI INH SCH (08:56)
[2016-06-26] MEDS ORDERED: Magnesium Oxide TAB* 400 MG PO SCH (09:00)
[2016-06-26] MEDS ORDERED: Thiamine TAB* 100 MG TAB PO SCH (09:00)
[2016-06-26] MEDS ORDERED: Folic Acid TAB* 1 MG PO SCH (09:00)
[2016-06-26] MEDS ORDERED: Multivitamins/Minerals TAB PO SCH (09:00)
[2016-06-26] MEDS: Potassium Chlor TAB* 20 MEQ TAB.ER PO SCH (09:23)
[2016-06-26 11:17] VITALS: BP 139/78
--- NOTE | 2016-06-26 22:52 | DS ---
DISCHARGE SUMMARY: DATE OF ADMISSION: 06/25/16 DATE OF DISCHARGE: 06/26/16 PRIMARY CARE PROVIDER: Dorcas Chan NP DISCHARGING PROVIDER: LYNDSAY Enamorado SUPERVISING PHYSICIAN: Patrizia Reyes MD * (DICTATED BY LYNDSAY ENAMORADO) PRIMARY DISCHARGE DIAGNOSES: 1. Acute alcohol intoxication. 2. Fall with a scalp laceration without intracranial injury. 3. Chronic obstructive pulmonary disease exacerbation. 4. Hypomagnesemia. 5. Hypokalemia. 6. Elevated lactate. SECONDARY DISCHARGE DIAGNOSES: 1. Hypertension. 2. Irritable bowel syndrome. 3. Posttraumatic stress disorder. 4. Osteoarthritis. 5. History of seizures, likely associated with alcohol withdrawal. DISCHARGE MEDICATIONS: 1. Albuterol inhaler 2 puffs inhaled q.4 hours as needed for shortness of breath. 2. DuoNeb inhaled q.4 hours as needed for shortness of breath. 3. Vitamin D3 2000 units p.o. daily. 4. Folic acid 1 mg p.o. daily. 5. Lorazepam 0.5 to 1 mg p.o. twice daily as needed for anxiety. 6. Magnesium oxide 500 mg p.o. daily. 7. Dulera 2 puffs inhaled twice daily. 8. Multivitamin 1 tablet p.o. daily. 9. Potassium chloride 20 mEq p.o. twice daily. 10. Seroquel 50 to 100 mg p.o. at bedtime. 11. Thiamine 100 mg p.o. daily. 12. Spiriva 1 capsule inhaled daily. Medication changes: 1. Start folic acid. 2. Start thiamine. 3. Start DuoNebs. 4. Start Dulera. HOSPITAL IMAGIN. EKG shows sinus rhythm without ischemic changes. 2. CT of the brain shows no acute process. 3. CT of cervical spine shows no fracture or other acute process. 4. X-ray of her shoulder shows no fracture. 5. Chest x-ray shows no acute process. HOSPITAL COURSE: This is a 66-year-old female with multiple medical conditions and frequent visits to the emergency department, who presented after a fall at home sustaining a scalp laceration. Her medical history includes COPD, hypertension, irritable bowel syndrome, history of seizures I believe secondary to alcohol withdrawal as well as anxiety and depression with PTSD, and a long history of alcohol abuse. The patient has sustained multiple falls in the last few weeks. She fell at home yesterday and does not recall the details, but sustained a scalp laceration requiring vesna near the occipitoparietal suture line. CT of the brain at that time demonstrated no intracranial pathology. The patient had been seen in the emergency department a week before for another fall that resulted in scalp laceration to her forehead and she had 3 sutures placed at that time that are still in place at the time of admission. The patient was also noted to be short of breath with rhonchi and wheezing appreciated on lung exam. Her initial oxygen saturations were between 90% and 91%. Hospitalist group was subsequently asked to evaluate for a possible admission. It seems most likely that her falls were secondary to alcohol intoxication. Her serum alcohol level at the time of admission was 276. The patient states that she has had successful sobriety in the past when she was associated with [facility], but she is not clear how long her sobriety lasted. She states that she is motivated to maintain sobriety again. The patient demonstrated some withdrawal symptoms overnight and required a few doses of oral lorazepam. Following morning, the patient was appropriate and anxious to get home without evidence of diaphoresis or tremor. She has multiple resources available to her in the community for case managements and outpatient coordination, which the patient certainly needs and will benefit from. In regards to the patient's respiratory symptoms, at the time of discharge, she was satting in the mid to high 90s on room air and had an occasional cough, but she states that she is otherwise feeling well. She has stopped using cigarettes a few days ago and also reports that she ran out of her medications a couple of weeks ago due to some issues with prior authorizations required after switching from prior insurance to Medicare. She states her medications are now available and will be delivered later today. The patient was started on Dulera and given DuoNebs and Spiriva and 1 dose of Solu-Medrol during her hospital stay with noted improvement in her symptoms. DISPOSITION: The patient is being discharged to home, where she lives alone. As stated above, she has multiple community resources to help to coordinate outpatient care. The patient would highly benefit from intensive counseling to help to maintain sobriety and address some of her chronic mental health concerns. Sutures from her forehead will be removed prior to discharge. She has vesna in the right occipital region near the occipitoparietal suture line and they do need to be removed in approximately 5 days and can be evaluated by her primary care provider. New prescriptions were sent for all of her medications as there was some confusion at the pharmacy. New medications were prescribed as outlined above. The patient continues to require care coordination services as well as evaluation for home physical therapy due to her frequent falls. The patient is strongly encouraged to maintain sobriety. The patient requires close followup with her primary care provider regarding this hospitalization. LYNDSAY ENAMORADO CC: Dorcas Chan NP * [id number]/CPS #: [id number] [place]
--- NOTE | 2016-06-27 18:22 | ED ---
Caryn Juárez Matthew, scribed for Gwyn Escalante MD on 06/25/16 at 0945 . Progress - Progress Note Progress Note: The patient is a sign out from Dr. Stein. - EKG/XRAY/CT EKG: NSR - 82 bpm Comments: No STEMI Re-Evaluation - Re-Evaluation First Eval Re-Evaluation Time: 09:40 Change: Improved Comment: Blood pressure in 110 systolic. She reports not being on home oxygen. She reports SOB with exertion and says she doesnt move much at home as a result of her SOB. Second Eval Re-Evaluation Time: 11:18 Comment: 88% sat on RA. The patient is wheezing. Course/Dx - Course Course Of Treatment: NO CRITICAL CARE TIME. - Diagnoses Provider Diagnoses: Head injury, Alcohol intoxication, Scalp laceration, Hypoxia, Hypomagnesemia, Frequent falls, Failure to thrive, COPD exacerbation, Alcoholism - Provider Notifications Discussed Care Of Patient With: Dr. White (Hospitalist) at 11:28 -- Notified of patient's history and will consult on the patient. The documentation as recorded by the Caryn juan Matthew accurately reflects the service I personally performed and the decisions made by , Gwyn Escalante MD.
== END 2016-06-26 13:30 | disposition home or self-care (01) ==
LOC: ED 02:18 → MED 11:48
PROVIDERS: ADMIT Internal Medicine; ATTEND Internal Medicine
DX: F10.129 Alcohol abuse with intoxication, unspecified (principal); S01.01XA Laceration without foreign body of scalp, initial encounter; W19.XXXA Unspecified fall, initial encounter; J44.1 Chronic obstructive pulmonary disease with (acute) exacerbation; E83.42 Hypomagnesemia; E87.6 Hypokalemia; I10 Essential (primary) hypertension; K58.9 Irritable bowel syndrome, unspecified; F43.10 Post-traumatic stress disorder, unspecified; Z79.899 Other long term (current) drug therapy; F17.210 Nicotine dependence, cigarettes, uncomplicated
CPT/HCPCS: 12001; 36415; 70450; 71010; 72125; 80048; 80053; 80320; 80329; 81003; 81015; 83605; 83690; 83735; 83880; 84484; 85025; 85610; 85730; 86140; 86850; 86870; 86880; 86900; 86901; 87086; 87502; 87899; 93005; 94640; 94760; 96365; 96366; 96367; 96372; 96375; 96376; 99285; A9270-GY; G0378; G0480; J0456; J1644; J2920; J2930

== ENCOUNTER 2016-07-10 21:14 | Emergency (ER) | payer MEDICARE, MEDICAID ==
[2016-07-10] MEDS ORDERED: LORazepam INJ* 2 MG/ML 1 ML VIAL IV ONE (22:06)
[2016-07-10] MEDS ORDERED: LORazepam INJ* 2 MG/ML 1 ML VIAL ONE (22:07)
--- NOTE | 2016-07-10 22:50 | RAD ---
Indication: Chest pain. Single frontal view of the chest performed at 2227 hours was reviewed. Comparison is made with previous exam dated June 25, 2016. There is a fracture of the left ninth rib posteriorly which was not identified previously. There is suggestion of a healing fracture of the right eighth rib posteriorly. No pneumothorax is noted. IMPRESSION: Fractures of the right eighth and left ninth rib which was not clearly identified on the previous exam. No pneumothorax is noted.
[2016-07-10 23:08] LABS: Hematocrit 38 % (35-47); Hemoglobin 12.9 g/dl (12.0-16.0); Mean Corpuscular HGB Conc 34 g/dl (31-36); Mean Corpuscular Hemoglobin 38 pg (27-31); Mean Platelet Volume 9 um3 (7.4-10.4); Red Blood Count 3.35 10^6/ul (4.0-5.4); Red Cell Distribution Width 18 % (10.5-15); White Blood Count 7.2 10^3/ul (3.5-10.8)
[2016-07-10 23:21] LABS: Comments Flag Yes; Mean Corpuscular Volume 114 fL (80-97)
[2016-07-10 23:25] LABS: ALT 15 U/L (7-52); AST 30 U/L (13-39); Albumin 3.5 g/dL (3.2-5.2); Alkaline Phosphatase 86 U/L (34-104); Anion Gap 10 mmol/L (2-11); BUN/Creatinine Ratio 8.9 (8-20); Blood Urea Nitrogen 5 mg/dL (6-24); C Reactive Protein < 1.00 mg/L (< 5.00); CO2 Carbon Dioxide 25 mmol/L (22-32); Calcium 8.2 mg/dL (8.6-10.3); Chloride 103 mmol/L (101-111); Creatine Kinase 32 U/L (10-223); EGFR African American 139.7 (>60); EGFR Non-African American 108.6 (>60); Globulin 2.4 g/dL (2-4); Glucose 97 mg/dL (70-100); Lipase 22 U/L (11.0-82.0); Magnesium 1.5 mg/dL (1.9-2.7); Potassium 3.1 mmol/L (3.5-5.0); Sodium 138 mmol/L (133-145); Total Protein 5.9 g/dL (6.4-8.9)
[2016-07-10 23:28] LABS: Troponin I 0.01 ng/mL (<0.04)
[2016-07-10 23:50] LABS: Acetaminophen < 15 mcg/mL; Alcohol 360 mg/dL (<10)
[2016-07-11] LABS: TSH (Thyroid Stimulating Horm) 5.31 mcIU/mL (0.34-5.60)
[2016-07-11] MEDS ORDERED: LORazepam TAB(*) 1 MG PO ONE (00:09)
[2016-07-11] MEDS ORDERED: Magnesium Sulfate 2 GM IV* 2 GM/50 ML BAG IVPB ONE (00:58)
[2016-07-11] MEDS ORDERED: Thiamine IV* 100 MG, Folic Acid IV* 1 MG, Multiple Vitamin IV ADULT* 10 ML in NS 0.9% 1... IV ONE (00:59)
[2016-07-11] MEDS ORDERED: Nicotine Inhaler* 10 MG AMP ONE (01:33)
[2016-07-11] MEDS ORDERED: Mouth Piece, Nicotine* 1 EACH CARTRIDGE ONE (01:33)
[2016-07-11] MEDS ORDERED: Mouth Piece, Nicotine* 1 EACH CARTRIDGE INH ONE (01:36)
[2016-07-11] MEDS ORDERED: QUEtiapine TAB* 25 MG PO ONE (02:03)
--- NOTE | 2016-07-11 07:46 | ED ---
Zahida Juárez Salem, scribed for Milind Stein MD on 07/10/16 at 2204 . HPI Chest Pain - HPI Summary HPI Summary: Patient is a 66 y/o female who presents to the ED per EMS with left upper CP s/ p a fall. Per EMS, no her EKG had no changes from the previous one. Pt appears to be intoxicated. She repots having consumed drinks of gin/johnson emily. - History of Current Complaint Chief Complaint: EDChestPainROMI Time Seen by Provider: 07/10/16 21:59 Hx Obtained From: Patient, EMS Onset/Duration: Started Hours Ago, Atraumatic Timing: Constant Initial Severity: Moderate Current Severity: Moderate Pain Intensity: 9 Pain Scale Used: 0-10 Numeric Chest Pain Location: Left Anterior - Upper. Chest Pain Radiates: No Aggravating Factor(s): Nothing Alleviating Factor(s): Nothing Associated Signs and Symptoms: Positive: Chest Pain - Additional Pertinent History Primary Care Physician: BACILIO - Allergy/Home Medications Allergies/Adverse Reactions: Allergies Allergy/AdvReac Type Severity Reaction Status Date / Time Doxycycline Allergy Intermediate Swelling Verified 12/26/15 21:09 Gabapentin [From Neurontin] Allergy Intermediate Swelling Verified 12/26/15 21: 09 Prednisone Allergy Intermediate Hives Verified 12/26/15 21:09 PMH/Surg Hx/FS Hx/Imm Hx Endocrine/Hematology History: Reports: Hx Anemia Denies: Hx Anticoagulant Therapy, Hx Blood Disorders, Hx Blood Transfusions, Hx Bone Marrow Disease, Hx Diabetes, Hx Systemic Lupus Erythematosus, Hx Sickle Cell Disease, Hx Thyroid Disease, Hx Unexplained Bleeding, Other Endocrine/ Hematological Disorders Cardiovascular History: Reports: Hx Angina, Hx Hypercholesterolemia - hx of, Hx Hypertension, Other Cardiovascular Problems/Disorders - carotid endarterectomy; hx of murmur Denies: Hx Aneurysm, Hx Angioplasty, Hx Auto Implanted Cardiovert Defib, Hx Cardiac Arrest, Hx Cardiomegaly, Hx Congenital Heart Disease, Hx Congestive Heart Failure, Hx Coronary Artery Disease, Hx Deep Vein Thrombosis, Hx Embolism , Hx Hypotension, Hx Pacemaker/ICD, Hx Peripheral Vascular Disease, Hx Rheumatic Fever, Hx Syncope, Hx Valvular Heart Disease Respiratory History: Reports: Hx Chronic Bronchitis, Hx Chronic Obstructive Pulmonary Disease (COPD), Hx Pneumonia, Other Respiratory Problems/Disorders - SMOAKER Denies: Hx Asthma, Hx Cystic Fibrosis, Hx Lung Cancer, Hx Pleural Effusion, Hx Pulmonary Edema, Hx Pulmonary Embolism, Hx Seasonal Allergies, Hx Sleep Apnea GI History: Reports: Hx Gastroesophageal Reflux Disease, Hx Irritable Bowel, Hx Ulcer, Other GI Disorders - adhesions Denies: Hx Cirrhosis, Hx Crohn's Disease, Hx Diverticulosis, Hx Gall Bladder Disease, Hx Gastrointestinal Bleed, Hx Hiatal Hernia, Hx Jaundice, Hx Obstructive Bowel, Hx Ileostomy, Hx Pyloric Stenosis History: Reports: Other Problems/Disorders - hx of UTI Denies: Hx Acute Renal Failure, Hx Benign Prostatic Hyperplasia, Hx Chronic Renal Failure, Hx Dialysis, Hx Kidney Infection, Hx Kidney Stones, Hx Renal Disease Musculoskeletal History: Reports: Hx Arthritis - osteo arthritis, Hx Orthopedic Injury - broken fingers, Other Musculoskeletal History - Past injury to R hand. Denies: Hx Back Problems, Hx Bursitis, Hx Congenital Bone Abnormalities, Hx Fibromyalgia, Hx Gout, Hx Osteoporosis, Hx Scoliosis, Hx Tendonitis Sensory History: Reports: Hx Contacts or Glasses - doesn't wear them though, Hx Vision Problem, Other Sensory Impairments - floaters Denies: Hx Cataracts, Hx Eye Injury, Hx Eye Prosthesis, Hx Glaucoma, Hx Macular Degeneration, Hx Deafness, Hx Hearing Aid, Hx Hearing Problem Opthamlomology History: Reports: Hx Contacts or Glasses - doesn't wear them though, Hx Vision Problem, Other Sensory Impairments - floaters Denies: Hx Cataracts, Hx Eye Injury, Hx Eye Prosthesis, Hx Glaucoma, Hx Macular Degeneration Neurological History: Reports: Hx Headaches - JUST RECENTLY, Hx Seizures Denies: Hx Dementia, Hx Developmental Delay, Hx Migraine, Hx Spinal Cord Injury, Hx Transient Ischemic Attacks (TIA), Other Neuro Impairments/Disorders Psychiatric History: Reports: Hx Anxiety, Hx Depression, Hx Panic Disorder - PTSD, Hx Post Traumatic Stress Disorder, Hx Inpatient Treatment, Hx Community Mental Health Tx, Hx Suicide Attempt, Hx Substance Abuse - ETOH, Other Psychiatric Issues/Disorders Denies: Hx Attention Deficit Hyperactivity Disorder, Hx Eating Disorder, Hx Schizophrenia, Hx Bipolar Disorder, Hx of Violent Episodes Against Others - Surgical History Surgery Procedure, Year, and Place: TONSILECTOMY ; APPENDECTOMY; X2 ; TUBAL LIGATION; CAROTID ENDERECTOMY (NO STENTINGS) Hx Anesthesia Reactions: Yes - EATHER CAUSED VOMITING - Immunization History Date of Tetanus Vaccine: PT STATES UNSURE Date of Influenza Vaccine: NONE Infectious Disease History: No Infectious Disease History: Denies: Hx Clostridium Difficile, Hx Hepatitis, Hx Human Immunodeficiency Virus (HIV), Hx Shingles, Hx Tuberculosis, Traveled Outside the [place] in Last 30 Days - Family History Known Family History: Positive: None, Cardiac Disease - Father, Other - father - colon ca, h/o ETOH abuse; mom- alzheimer's dz - Social History Alcohol Use: Daily Alcohol Amount: 3+ glasses 5-6x wk Hx Substance Use: No Substance Use Type: Reports: None Substance Use Comment - Amount & Last Used: pt aware of mental & physical risks of etoh, not willing/ready to change Hx Tobacco Use: Yes Smoking Status (MU): Heavy Every Day Tobacco Smoker Type: Cigarettes Have You Smoked in the Last Year: Yes Review of Systems Negative: Fever Positive: Chest Pain All Other Systems Reviewed And Are Negative: Yes Physical Exam Triage Information Reviewed: Yes Vital Signs On Initial Exam: Initial Vitals Temp Pulse Resp BP Pulse Ox 98.2 F 90 20 148/70 93 07/10/16 21:21 07/10/16 21:21 07/10/16 21:21 07/10/16 21:21 07/10/16 21:21 Vital Signs Reviewed: Yes Appearance: Positive: Well-Appearing, No Pain Distress Skin: Positive: Warm, Skin Color Reflects Adequate Perfusion, Dry Head/Face: Positive: Normal Head/Face Inspection Eyes: Positive: EOMI, SIMBA Neck: Positive: Supple, Nontender Respiratory/Lung Sounds: Positive: Clear to Auscultation, Breath Sounds Present Cardiovascular: Positive: RRR Abdomen Description: Positive: Nontender, Soft Musculoskeletal: Positive: Normal, Strength/ROM Intact Neurological: Positive: Normal, Sensory/Motor Intact, Alert, Oriented to Person Place, Time Psychiatric: Positive: Other - Appears intoxicated. Non-cooperative. Yelling. - Low Coma Scale Coma Scale Total: 15 Diagnostics - Vital Signs Vital Signs Temp Pulse Resp BP Pulse Ox 07/10/16 21:21 98.2 F 90 20 148/70 93 - Laboratory Lab Results: Lab Results 07/10/16 07/10/16 07/10/16 Range/Units 22:57 22:57 22:57 WBC 7.2 (3.5-10.8) 10^3/ul RBC 3.35 L (4.0-5.4) 10^6/ul Hgb 12.9 (12.0-16.0) g/dl Hct 38 (35-47) % MCV 114 H (80-97) fL MCH 38 H (27-31) pg MCHC 34 (31-36) g/dl RDW 18 H (10.5-15) % Plt Count 119 L (150-450) 10^3/ul MPV 9 (7.4-10.4) um3 Neut % (Auto) 59.5 (38-83) % Lymph % (Auto) 28.9 (25-47) % [place] % (Auto) 9.4 H (1-9) % Eos % (Auto) 1.0 (0-6) % Baso % (Auto) 1.2 (0-2) % Absolute Neuts (auto) 4.3 (1.5-7.7) 10^3/ul Absolute Lymphs (auto) 2.1 (1.0-4.8) 10^3/ul Absolute Monos (auto) 0.7 (0-0.8) 10^3/ul Absolute Eos (auto) 0.1 (0-0.6) 10^3/ul Absolute Basos (auto) 0.1 (0-0.2) 10^3/ul Absolute Nucleated RBC 0.01 10^3/ul Nucleated RBC % 0.1 INR (Anticoag Therapy) 1.10 (0.89-1.11) APTT 35.4 (26.0-36.3) seconds Sodium 138 (133-145) mmol/L Potassium 3.1 L (3.5-5.0) mmol/L Chloride 103 (101-111) mmol/L Carbon Dioxide 25 (22-32) mmol/L Anion Gap 10 (2-11) mmol/L BUN 5 L (6-24) mg/dL Creatinine 0.56 (0.51-0.95) mg/dL Est GFR ( Amer) 139.7 (>60) Est GFR (Non-Af Amer) 108.6 (>60) BUN/Creatinine Ratio 8.9 (8-20) Glucose 97 (70-100) mg/dL Lactic Acid (0.5-2.0) mmol/L Calcium 8.2 L (8.6-10.3) mg/dL Magnesium 1.5 L (1.9-2.7) mg/dL Total Bilirubin 0.90 (0.2-1.0) mg/dL AST 30 (13-39) U/L ALT 15 (7-52) U/L Alkaline Phosphatase 86 (34-104) U/L Total Creatine Kinase 32 (10-223) U/L CK-MB (CK-2) 1.5 (0.6-6.3) ng/mL Troponin I 0.01 (<0.04) ng/mL C-Reactive Protein < 1.00 (< 5.00) mg/L B-Natriuretic Peptide ( - 100) pg/mL Total Protein 5.9 L (6.4-8.9) g/dL Albumin 3.5 (3.2-5.2) g/dL Globulin 2.4 (2-4) g/dL Albumin/Globulin Ratio 1.5 (1-3) Lipase 22 (11.0-82.0) U/L TSH 5.31 (0.34-5.60) mcIU/mL Acetaminophen < 15 mcg/mL Serum Alcohol 360 H (<10) mg/dL 07/10/16 07/10/16 Range/Units 22:57 22:57 WBC (3.5-10.8) 10^3/ul RBC (4.0-5.4) 10^6/ul Hgb (12.0-16.0) g/dl Hct (35-47) % MCV (80-97) fL MCH (27-31) pg MCHC (31-36) g/dl RDW (10.5-15) % Plt Count (150-450) 10^3/ul MPV (7.4-10.4) um3 Neut % (Auto) (38-83) % Lymph % (Auto) (25-47) % [place] % (Auto) (1-9) % Eos % (Auto) (0-6) % Baso % (Auto) (0-2) % Absolute Neuts (auto) (1.5-7.7) 10^3/ul Absolute Lymphs (auto) (1.0-4.8) 10^3/ul Absolute Monos (auto) (0-0.8) 10^3/ul Absolute Eos (auto) (0-0.6) 10^3/ul Absolute Basos (auto) (0-0.2) 10^3/ul Absolute Nucleated RBC 10^3/ul Nucleated RBC % INR (Anticoag Therapy) (0.89-1.11) APTT (26.0-36.3) seconds Sodium (133-145) mmol/L Potassium (3.5-5.0) mmol/L Chloride (101-111) mmol/L Carbon Dioxide (22-32) mmol/L Anion Gap (2-11) mmol/L BUN (6-24) mg/dL Creatinine (0.51-0.95) mg/dL Est GFR ( Amer) (>60) Est GFR (Non-Af Amer) (>60) BUN/Creatinine Ratio (8-20) Glucose (70-100) mg/dL Lactic Acid 2.5 H* (0.5-2.0) mmol/L Calcium (8.6-10.3) mg/dL Magnesium (1.9-2.7) mg/dL Total Bilirubin (0.2-1.0) mg/dL AST (13-39) U/L ALT (7-52) U/L Alkaline Phosphatase (34-104) U/L Total Creatine Kinase (10-223) U/L CK-MB (CK-2) (0.6-6.3) ng/mL Troponin I (<0.04) ng/mL C-Reactive Protein (< 5.00) mg/L B-Natriuretic Peptide 49 ( - 100) pg/mL Total Protein (6.4-8.9) g/dL Albumin (3.2-5.2) g/dL Globulin (2-4) g/dL Albumin/Globulin Ratio (1-3) Lipase (11.0-82.0) U/L TSH (0.34-5.60) mcIU/mL Acetaminophen mcg/mL Serum Alcohol (<10) mg/dL Result Diagrams: 07/10/16 22:57 07/10/16 22:57 Lab Statement: Any lab studies that have been ordered have been reviewed, and results considered in the medical decision making process. - Radiology CXR Radiology Interpretation Completed By: Radiologist - IMPRESSION: Fractures of the right eighth and left ninth rib which was not clearly identified on the previous exam. No pneumothorax is noted. Chest Pain Course/Dx - Course Course Of Treatment: NO CRITICAL CARE TIME Assessment/Plan: STABLE IN ED. DISCHARGE HOME STABLE. - Diagnoses Provider Diagnoses: Chest pain, Alcohol intoxication Discharge - Discharge Plan Condition: Stable Disposition: HOME Patient Education Materials: Chest Pain (ED), Alcohol Intoxication (ED) Referrals: Dorcas Chan NP [Primary Care Provider] - [facility] [Outside] [facility] [Outside] [facility] [Outside] Additional Instructions: FOLLOW UP WITH YOUR DOCTOR. RETURN TO THE EMERGENCY DEPARTMENT FOR ANY WORSENING OF YOUR CONDITION OR QUESTIONS OR CONCERNS. The documentation as recorded by the Zahida juan Salem accurately reflects the service I personally performed and the decisions made by me, Milind Stein MD.
[2016-07-11 09:27] VITALS: BP 118/78
== END 2016-07-11 09:30 | disposition home or self-care (01) ==
LOC: ED 21:14
DX: F10.129 Alcohol abuse with intoxication, unspecified (principal); R07.9 Chest pain, unspecified; F17.210 Nicotine dependence, cigarettes, uncomplicated
CPT/HCPCS: 36415; 71010; 80053; 80320; 80329; 82550; 82553; 83605; 83690; 83735; 83880; 84443; 84484; 85025; 85610; 85730; 86140; 93005; 96374; 96375; 99282; A9270-GY; G0480; J2060

== ENCOUNTER 2016-09-15 12:12 | Emergency (ER) | payer MEDICARE, MEDICAID ==
[2016-09-15 12:22] VITALS: BP 122/79
[2016-09-15 13:33] LABS: Hematocrit 46 % (35-47); Hemoglobin 15.2 g/dl (12.0-16.0); Mean Corpuscular HGB Conc 33 g/dl (31-36); Mean Corpuscular Hemoglobin 39 pg (27-31); Mean Platelet Volume 8 um3 (7.4-10.4); Red Blood Count 3.94 10^6/ul (4.0-5.4); Red Cell Distribution Width 17 % (10.5-15); White Blood Count 6.1 10^3/ul (3.5-10.8)
[2016-09-15 13:37] LABS: Comments Flag Yes; Mean Corpuscular Volume 116 fL (80-97)
[2016-09-15 13:55] LABS: Albumin 3.9 g/dL (3.2-5.2); Calcium 9.2 mg/dL (8.6-10.3); EGFR African American 189.5 (>60); EGFR Non-African American 147.4 (>60); Globulin 2.8 g/dL (2-4); Total Bilirubin 0.6 mg/dL (0.2-1.0); Total Protein 6.7 g/dL (6.4-8.9)
[2016-09-15 14:25] LABS: Potassium 3.1 mmol/L (3.5-5.0)
--- NOTE | 2016-09-15 14:51 | ED ---
Lower Extremity - HPI Summary HPI Summary: Patient presents to the ED s/p fall. She states she called the ambulance to help her get up off the floor d/t lower extremity pain. [place] in [place] [facility] [place] weakness and infection. She states she was treated in the hospital for 3 weeks and has felt weak in the legs since. She admits to ETOH use last evening which is why she fell. Denies hitting head , LOC or other complaints at this time. She states she prefers to go home and does not want to have any imaging. There is deformities noted over bilateral lower extremities, but she states that is her baseline and they have been swollen for several months. She is encouraged to follow up with PCP about this. ETOH abuse discussed. - History of Current Complaint Chief Complaint: EDExtremityLower Stated Complaint: FALL Time Seen by Provider: 09/15/16 12:17 Hx Obtained From: Patient Mechanism Of Injury: Fall From A Standing Position Onset of Pain: Immediate Onset/Duration: Minutes Severity Initially: Mild Severity Currently: Mild Pain Intensity: 0 Pain Scale Used: 0-10 Numeric Timing: Constant Location: Is Discrete @ - bilateral lower extremities Character Of Pain: Aching Associated Signs And Symptoms: Positive: Swelling, Weakness Aggravating Factor(s): Standing, Ambulation Alleviating Factor(s): Rest Able to Bear Weight: No - Risk Factors Gout Risk Factors: Age Over 40 DVT Risk Factors: Smoking, Recent Trauma Septic Arthritis Risk Factor: Negative - Allergies/Home Medications Allergies/Adverse Reactions: Allergies Allergy/AdvReac Type Severity Reaction Status Date / Time Doxycycline Allergy Intermediate Swelling Verified 09/15/16 12:25 Gabapentin [From Neurontin] Allergy Intermediate Swelling Verified 09/15/16 12: 25 Prednisone Allergy Intermediate Hives Verified 09/15/16 12:25 PMH/Surg Hx/FS Hx/Imm Hx Previously Healthy: No - see below Endocrine/Hematology History: Reports: Hx Anemia Denies: Hx Anticoagulant Therapy, Hx Blood Disorders, Hx Blood Transfusions, Hx Bone Marrow Disease, Hx Diabetes, Hx Systemic Lupus Erythematosus, Hx Sickle Cell Disease, Hx Thyroid Disease, Hx Unexplained Bleeding, Other Endocrine/ Hematological Disorders Cardiovascular History: Reports: Hx Angina, Hx Hypercholesterolemia - hx of, Hx Hypertension, Other Cardiovascular Problems/Disorders - carotid endarterectomy; hx of murmur Denies: Hx Aneurysm, Hx Angioplasty, Hx Auto Implanted Cardiovert Defib, Hx Cardiac Arrest, Hx Cardiomegaly, Hx Congenital Heart Disease, Hx Congestive Heart Failure, Hx Coronary Artery Disease, Hx Deep Vein Thrombosis, Hx Embolism , Hx Hypotension, Hx Pacemaker/ICD, Hx Peripheral Vascular Disease, Hx Rheumatic Fever, Hx Syncope, Hx Valvular Heart Disease Respiratory History: Reports: Hx Chronic Bronchitis, Hx Chronic Obstructive Pulmonary Disease (COPD), Hx Pneumonia, Other Respiratory Problems/Disorders - SMOAKER Denies: Hx Asthma, Hx Cystic Fibrosis, Hx Lung Cancer, Hx Pleural Effusion, Hx Pulmonary Edema, Hx Pulmonary Embolism, Hx Seasonal Allergies, Hx Sleep Apnea GI History: Reports: Hx Gastroesophageal Reflux Disease, Hx Irritable Bowel, Hx Ulcer, Other GI Disorders - adhesions Denies: Hx Cirrhosis, Hx Crohn's Disease, Hx Diverticulosis, Hx Gall Bladder Disease, Hx Gastrointestinal Bleed, Hx Hiatal Hernia, Hx Jaundice, Hx Obstructive Bowel, Hx Ileostomy, Hx Pyloric Stenosis History: Reports: Other Problems/Disorders - hx of UTI Denies: Hx Acute Renal Failure, Hx Benign Prostatic Hyperplasia, Hx Chronic Renal Failure, Hx Dialysis, Hx Kidney Infection, Hx Kidney Stones, Hx Renal Disease Musculoskeletal History: Reports: Hx Arthritis - osteo arthritis, Hx Orthopedic Injury - broken fingers, Other Musculoskeletal History - Past injury to R hand. Denies: Hx Back Problems, Hx Bursitis, Hx Congenital Bone Abnormalities, Hx Fibromyalgia, Hx Gout, Hx Osteoporosis, Hx Scoliosis, Hx Tendonitis Sensory History: Reports: Hx Contacts or Glasses - doesn't wear them though, Hx Vision Problem, Other Sensory Impairments - floaters Denies: Hx Cataracts, Hx Eye Injury, Hx Eye Prosthesis, Hx Glaucoma, Hx Macular Degeneration, Hx Deafness, Hx Hearing Aid, Hx Hearing Problem Opthamlomology History: Reports: Hx Contacts or Glasses - doesn't wear them though, Hx Vision Problem, Other Sensory Impairments - floaters Denies: Hx Cataracts, Hx Eye Injury, Hx Eye Prosthesis, Hx Glaucoma, Hx Macular Degeneration Neurological History: Reports: Hx Headaches - JUST RECENTLY, Hx Seizures Denies: Hx Dementia, Hx Developmental Delay, Hx Migraine, Hx Spinal Cord Injury, Hx Transient Ischemic Attacks (TIA), Other Neuro Impairments/Disorders Psychiatric History: Reports: Hx Anxiety, Hx Depression, Hx Panic Disorder - PTSD, Hx Post Traumatic Stress Disorder, Hx Inpatient Treatment, Hx Community Mental Health Tx, Hx Suicide Attempt, Hx Substance Abuse - ETOH, Other Psychiatric Issues/Disorders Denies: Hx Attention Deficit Hyperactivity Disorder, Hx Eating Disorder, Hx Schizophrenia, Hx Bipolar Disorder, Hx of Violent Episodes Against Others - Surgical History Surgery Procedure, Year, and Place: TONSILECTOMY ; APPENDECTOMY; X2 ; TUBAL LIGATION; CAROTID ENDERECTOMY (NO STENTINGS) Hx Anesthesia Reactions: Yes - EATHER CAUSED VOMITING - Immunization History Date of Tetanus Vaccine: PT STATES UNSURE Date of Influenza Vaccine: NONE Hx Pertussis Vaccination: No Immunizations Up to Date: Unable to Obtain/Confirm Infectious Disease History: No Infectious Disease History: Denies: Hx Clostridium Difficile, Hx Hepatitis, Hx Human Immunodeficiency Virus (HIV), Hx Shingles, Hx Tuberculosis, Traveled Outside the [place] in Last 30 Days - Family History Known Family History: Positive: None, Cardiac Disease - Father, Other - father - colon ca, h/o ETOH abuse; mom- alzheimer's dz - Social History Occupation: Unemployed Lives: With Family Alcohol Use: Daily Alcohol Amount: 3+ glasses 5-6x wk Hx Substance Use: No Substance Use Type: Reports: None Substance Use Comment - Amount & Last Used: pt aware of mental & physical risks of etoh, not willing/ready to change Hx Tobacco Use: Yes Smoking Status (MU): Heavy Every Day Tobacco Smoker Type: Cigarettes Have You Smoked in the Last Year: Yes Review of Systems Constitutional: Negative Eyes: Negative Cardiovascular: Negative Respiratory: Negative Positive: no symptoms reported, see HPI Positive: Arthralgia, Myalgia - in bilateral lower extremities Skin: Negative Neurological: Negative Psychological: Normal All Other Systems Reviewed And Are Negative: Yes Physical Exam Triage Information Reviewed: Yes Vital Signs On Initial Exam: Initial Vitals Temp Pulse Resp BP Pulse Ox 98.5 F 97 15 122/79 94 09/15/16 12:18 09/15/16 12:18 09/15/16 12:18 09/15/16 12:18 09/15/16 12:18 Vital Signs Reviewed: Yes Appearance: Positive: Ill-Appearing, Thin, Cachectic, Signs of Trauma - very discheveled with swollen lower extremities patient states is at her baseline Skin: Positive: Other Head/Face: Positive: Normal Head/Face Inspection Eyes: Positive: EOMI, SIMBA, Conjunctiva Clear Neck: Positive: Supple, No Lymphadenopathy Respiratory/Lung Sounds: Positive: Clear to Auscultation, Breath Sounds Present Cardiovascular: Positive: Normal, RRR Musculoskeletal: Positive: Pain @ - bilateral lower extremities at baseline Neurological: Positive: Normal, Sensory/Motor Intact, Speech Normal Psychiatric: Positive: Normal AVPU Assessment: Alert - Low Coma Scale Best Eye Response: 4 - Spontaneous Best Motor Response: 6 - Obeys Commands Best Verbal Response: 5 - Oriented Diagnostics - Vital Signs Vital Signs Temp Pulse Resp BP Pulse Ox 09/15/16 12:18 98.5 F 97 15 122/79 94 - Laboratory Lab Results: Lab Results 09/15/16 09/15/16 09/15/16 Range/Units 13:18 13:18 13:18 WBC 6.1 (3.5-10.8) 10^3/ul RBC 3.94 L (4.0-5.4) 10^6/ul Hgb 15.2 (12.0-16.0) g/dl Hct 46 (35-47) % MCV 116 H (80-97) fL MCH 39 H (27-31) pg MCHC 33 (31-36) g/dl RDW 17 H (10.5-15) % Plt Count 142 L (150-450) 10^3/ul MPV 8 (7.4-10.4) um3 Neut % (Auto) 58.8 (38-83) % Lymph % (Auto) 32.8 (25-47) % [place] % (Auto) 5.9 (1-9) % Eos % (Auto) 1.3 (0-6) % Baso % (Auto) 1.2 (0-2) % Absolute Neuts (auto) 3.6 (1.5-7.7) 10^3/ul Absolute Lymphs (auto) 2.0 (1.0-4.8) 10^3/ul Absolute Monos (auto) 0.4 (0-0.8) 10^3/ul Absolute Eos (auto) 0.1 (0-0.6) 10^3/ul Absolute Basos (auto) 0.1 (0-0.2) 10^3/ul Absolute Nucleated RBC 0.01 10^3/ul Nucleated RBC % 0.2 Sodium 136 (133-145) mmol/L Potassium 3.1 L (3.5-5.0) mmol/L Chloride 99 L (101-111) mmol/L Carbon Dioxide 27 (22-32) mmol/L Anion Gap 10 (2-11) mmol/L BUN 6 (6-24) mg/dL Creatinine 0.43 L (0.51-0.95) mg/dL Est GFR ( Amer) 189.5 (>60) Est GFR (Non-Af Amer) 147.4 (>60) BUN/Creatinine Ratio 14.0 (8-20) Glucose 90 (70-100) mg/dL Lactic Acid 2.5 H* (0.5-2.0) mmol/L Calcium 9.2 (8.6-10.3) mg/dL Total Bilirubin 0.60 (0.2-1.0) mg/dL AST 84 H (13-39) U/L ALT 28 (7-52) U/L Alkaline Phosphatase 88 (34-104) U/L Total Creatine Kinase 69 (10-223) U/L Total Protein 6.7 (6.4-8.9) g/dL Albumin 3.9 (3.2-5.2) g/dL Globulin 2.8 (2-4) g/dL Albumin/Globulin Ratio 1.4 (1-3) Result Diagrams: 09/15/16 13:18 09/15/16 13:18 Lab Statement: Any lab studies that have been ordered have been reviewed, and results considered in the medical decision making process. Lower Extremity Course/Dx - Course Course Of Treatment: Labs WNL other than lactic 2.5, this is at baseline. Discussed ETOH abuse and encouraged follow up. Patient states she does not want imaging at this time and prefers to be discharged home. - Diagnoses Differential Diagnosis/HQI/PQRI: Positive: Contusion, Fracture (Closed), Fracture (Open), Sprain Provider Diagnoses: ETOH abuse Discharge - Discharge Plan Condition: Stable Disposition: HOME Referrals: Dorcas Chan ROUTEMAN [Primary Care Provider] - Additional Instructions: Follow up with PCP Discontinue drinking alcohol If you develop any worsening symptoms, return to the ED immediately.
== END 2016-09-15 16:03 | disposition home or self-care (01) ==
LOC: ED 12:12
DX: F10.10 Alcohol abuse, uncomplicated (principal)
CPT/HCPCS: 36415; 80053; 82550; 83605; 85025; 99282

== ENCOUNTER 2016-09-21 10:50 | Inpatient (IN) | payer MEDICARE, MEDICAID ==
[2016-09-21] MEDS ORDERED: Magnesium Sulfate 2 GM IV* 2 GM/50 ML BAG IVPB ONE ×2 (11:48→14:11)
[2016-09-21] MEDS ORDERED: LORazepam INJ* 2 MG/ML 1 ML VIAL IV ONE (11:48)
[2016-09-21] MEDS ORDERED: NS 0.9% 1000 ML* 1,000 ML IV ONE (11:48)
[2016-09-21] MEDS ORDERED: Thiamine IV 100 MG, Folic Acid IV* 1 MG, Multiple Vitamin IV ADULT* 10 ML in NS 0.9% 10... IV ONE (11:49)
[2016-09-21] MEDS ORDERED: diPHENhydraMINE IV* 50 MG/ML 1 ml VIAL (BENADRYL) IV ONE (11:53)
[2016-09-21] MEDS ORDERED: methylPREDNISolone 125 MG* 2 ML VIAL IV ONE (11:53)
[2016-09-21 11:58] LABS: Hematocrit 35 % (35-47); Hemoglobin 11.9 g/dl (12.0-16.0); Mean Corpuscular HGB Conc 34 g/dl (31-36); Mean Corpuscular Hemoglobin 39 pg (27-31); Mean Platelet Volume 9 um3 (7.4-10.4); Red Blood Count 3.04 10^6/ul (4.0-5.4); Red Cell Distribution Width 17 % (10.5-15); White Blood Count 5.7 10^3/ul (3.5-10.8)
[2016-09-21 12:00] LABS: Comments Flag Yes
[2016-09-21 12:02] LABS: Mean Corpuscular Volume 115 fL (80-97)
[2016-09-21 12:13] LABS: Alcohol < 10 mg/dL (<10)
[2016-09-21 12:14] LABS: ALT 16 U/L (7-52); AST 40 U/L (13-39); Albumin 3.3 g/dL (3.2-5.2); Alkaline Phosphatase 68 U/L (34-104); BUN/Creatinine Ratio 13.9 (8-20); Blood Urea Nitrogen 5 mg/dL (6-24); C Reactive Protein 1.97 mg/L (< 5.00); CO2 Carbon Dioxide 23 mmol/L (22-32); Calcium 7.5 mg/dL (8.6-10.3); Chloride 92 mmol/L (101-111); Creatine Kinase 140 U/L (10-223); EGFR African American 232.7 (>60); EGFR Non-African American 180.9 (>60); Globulin 2.4 g/dL (2-4); Glucose 92 mg/dL (70-100); Sodium 127 mmol/L (133-145); Total Protein 5.7 g/dL (6.4-8.9)
[2016-09-21 12:23] LABS: TSH (Thyroid Stimulating Horm) 2.91 mcIU/mL (0.34-5.60)
[2016-09-21 12:24] LABS: Troponin I 0.07 ng/mL (<0.04)
[2016-09-21 12:35] LABS: Anion Gap 12 mmol/L (2-11); Potassium 2.6 mmol/L (3.5-5.0)
[2016-09-21 12:37] LABS: Magnesium 0.7 mg/dL (1.9-2.7)
[2016-09-21] MEDS ORDERED: KCL 20 MEQ/100 ML IVPREMIX* 20 MEQ/100 ML BAG IV ONE (12:47)
[2016-09-21] MEDS: Potassium Chlor TAB* 20 MEQ TAB.ER PO ONE ×2 (12:56→12:57)
[2016-09-21] MEDS ORDERED: Potassium Chloride LIQUID* 20 MEQ PACKET PO ONE ×2 (13:04→16:00)
[2016-09-21] MEDS ORDERED: LORazepam TAB(*) 0.5 MG PO PRN (13:34)
[2016-09-21 13:55] LABS: Urine Bacteria Absent (Absent); Urine Bilirubin Negative (Negative); Urine Glucose Negative (Negative); Urine Nitrite Negative (Negative)
[2016-09-21 14:16] LABS: Benzodiazepine Urine Screen None Detected (None Detect)
[2016-09-21] MEDS ORDERED: Albuterol/Ipratropium NEB.SOL* Albuterol 2.5 MG/Ipratropium 0.5 MG 3 ML INH PRN (16:29)
[2016-09-21] MEDS ORDERED: Albuterol HFA INHALER* 8 gm MDI INH PRN (16:29)
[2016-09-21 16:58] LABS: Potassium 3.4 mmol/L (3.5-5.0)
[2016-09-21 17:01] LABS: Troponin I 0.05 ng/mL (<0.04)
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
[2016-09-21] MEDS: Mometasone/Formoter 200/5 MDI INH SCH (19:45)
[2016-09-21] MEDS: Nystatin CREAM* 15 GM TUBE TOPICAL SCH (20:07)
[2016-09-21] MEDS: Heparin VIAL(*) 5000 UNITS/ML VIAL (FIVE THOUSAND) SUBCUT SCH (20:08)
[2016-09-21] MEDS ORDERED: QUEtiapine TAB* 25 MG PO SCH (21:00)
[2016-09-21] MEDS: NS 0.9% 1000 ML* 1,000 ML IV SCH (21:35)
--- NOTE | 2016-09-22 01:23 | HP ---
CC: Drocas Chan NP HISTORY AND PHYSICAL: DATE OF ADMISSION: 09/21/16 PRIMARY CARE PROVIDER: Dorcas Chan NP CHIEF COMPLAINT: Swollen tongue. HISTORY OF PRESENT ILLNESS: Ms. Bland is a 66-year-old female, well known to the hospitalist service from prior hospitalization, who has history of alcoholism and presents now with complaints of tongu e swelling. The patient states that she awakened on the morning of the day of admission with a swol kai tongue. She denies any trauma or biting her tongue. She does not really know what happened. S he contacted her outpatient hospice case manager, who recommended that she present to the emergency room for evaluation. The patient states in addition to the tongue swelling, she has pain in her right later al ribs and right hip. She states that she has been feeling very poorly recently as her daughter is reportedly dying and her father's cancer has worsened. She states that she stopped drinking recent ly. She is unable to tell me when she stopped. She states that she has not been eating anything sig nificant over the last couple of weeks. When asked why she is not eating, she states that it is bec ause of fear of her daughter dying. She also admits to having profuse diarrhea for the last 1 month . She states that the stool is just pouring out of her. PAST MEDICAL HISTORY: 1. COPD. 2. Angina. 3. Hypertension. 4. IBS. 5. Arthritis. 6. Seizures (question alcohol withdrawal). 7. Anxiety/depression. 8. PTSD. 9. Alcohol abuse. PAST SURGICAL HISTORY: 1. Carotid endarterectomy. 2. Appendectomy. 3. Tonsillectomy. 4. x2. 5. Tubal ligation. MEDICATIONS: 1. Spiriva 1 puff inhaled daily. 2. Thiamine 100 mg p.o. daily. 3. Seroquel 50 to 100 mg p.o. q.h.s. 4. Potassium chloride 20 mEq p.o. b.i.d. 5. Multivitamin 1 tab p.o. daily. 6. Dulera 200/5 two puffs inhaled twice daily. 7. Magnesium oxide 500 mg p.o. daily. 8. Ativan 0.5 to 1 mg p.o. b.i.d. p.r.n. anxiety. 9. Folic acid 1 mg p.o. daily. 10. Vitamin D3 2000 units p.o. daily. 11. DuoNeb 1 neb inhaled q.4 hours p.r.n. shortness of breath. 12. Albuterol 2 puffs inhaled q.4 hours p.r.n. shortness of breath. ALLERGIES: DOXYCYCLINE, GABAPENTIN, and PREDNISONE. FAMILY HISTORY: Mom had a history of dementia. Father has a history of heart disease and colon can cer. SOCIAL HISTORY: The patient is a pack and a half day smoker. She has been smoking for 40 plus year s. She states that she has not been drinking recently, but prior was drinking at a minimum 3 osei jars full of wine at night. The patient states that her healthcare proxy is currently her daughter; however, she states that her daughter is dying and she is not sure that she would want her to be he r healthcare proxy. REVIEW OF SYSTEMS: Complete review of systems is as per HPI and otherwise negative. PHYSICAL EXAMINATION GENERAL: The patient is a well-developed, cachectic-appearing, disheveled middle- aged female, who appears older than her stated age, sleeping in the stretcher, but awakened easily to voice and light touch. VITAL SIGNS: Blood pressure 117/68, pulse 90, respirations 25, temp 98.5, O2 sat 95% on room air. HEENT: Pupils are equal. They are round. Extraocular muscles are intact. Oropharynx is clear. Or al mucosa is dry. There is no submandibular, cervical, or supraclavicular adenopathy. Thyroid is n ot enlarged. No thyroid nodules are noted. The tongue is mildly swollen. There is scattered bruis ing noted most specifically along the left side of the tongue. There is no obvious bite cecy and th ere is no blood noted in the mouth. PULMONARY: Lungs are clear to auscultation bilaterally. CARDIAC: Normal S1, S2. Regular rate and rhythm. I do not appreciate any murmurs. There is trace bilateral edema of the feet. Her legs appear to have been swollen recently as there is now signifi cant wrinkling of the skin around her ankles and the patient states that she did have leg swelling r ecently, but this is the best her legs have looked in quite some time. ABDOMEN: Bowel sounds are present. Abdomen is soft, nontender. She is moderately distended. MUSCULOSKELETAL: There is no cyanosis or clubbing of the digits. There is full active range of mot ion of all 4 extremities. SKIN: Warm. It is dry. She appears dirty. NEURO: Cranial nerves II through XII appear to be grossly intact. Sensation is intact to light milena ch throughout. Strength is 5/5 and symmetric both upper and lower extremities bilaterally. PSYCH: The patient is alert. She is oriented x3. LABORATORY DATA: WBC 5.7, hemoglobin 11.9, hematocrit 35, platelets 103,000. INR 1.15. Sodium 12 7, potassium 2.6, chloride 92, CO2 23, BUN 5, creatinine 0.36, glucose 92, lactic acid 0.7, calcium 7.5, magnesium 0.7, bilirubin 1.4, AST 40, ALT 16, alk phos 68. CPK 140. Troponin 0.07. CRP 197. BNP 155. Albumin 3.3. TSH 2.91. EKG reveals normal sinus rhythm without any acute ST, T-wave abnormalities, though a slightly prolon ged QTC interval is noted. ASSESSMENT AND PLAN: Ms. Bland is a 66-year-old female with a longstanding history of alcoholism and tobacco abuse, as well as chronic obstructive pulmonary disease, who presents to the emergency room with complaints of tongue swelling. 1. Tongue swelling. At this point, it appears there has been some sort of trauma to the tongue. I am suspicious with the patient recently stopping drinking that she may have had an alcohol withdraw al seizure. The tongue swelling will be monitored in the ICU. She did receive a dose of Solu-Medro l in the emergency room, though this does not look to be swelling related to an allergic reaction. The patient will be on the [facility] protocol for possible alcohol withdrawal. 2. Hyponatremia, hypokalemia, and hypomagnesemia. I suspect her electrolyte derangements are secon jai to poor oral intake. It is unclear if she has been taking her medications as prescribed at [facility]. The patient will receive aggressive supplementation of magnesium and potassium. Followup electr olyte values will be obtained at 1800 this evening. Followup labs will again be obtained tomorrow m olivier. In terms of the hyponatremia, I suspect this is from volume depletion from not eating or dr inking well and what she describes as profuse diarrhea. The patient will also be started on normal saline at 75 mL per hour. We will need to follow her sodium level closely. She does at times tend to run on the low side. 3. Elevated troponin. My suspicion is that this represents demand ischemia. Followup troponin will be obtained. Her EKG does not reveal any ischemic changes. Her last echocardiogram was in erefore, we will go ahead and repeat this now. 4. Mild anemia and thrombocytopenia. I suspect this is related to her history of alcoholism. Thes e values will be followed. 5. Alcohol abuse. At this point, the patient is not clear when she stopped drinking. She will be placed on a [facility] protocol and monitored for signs of alcohol withdrawal. 6. Chronic obstructive pulmonary disease. At this point, there are no signs of exacerbation. The patient is breathing comfortably on room air. She will be continued on her home inhaler, fresh nebu lizer regimen. 7. DVT prophylaxis. According to the Adult Thrombosis Prophylaxis Risk Factor Assessment Guide, e patient has a total risk factor score of 2 making her moderate risk. She will be placed on hepari n 5000 units subcutaneous q.12 hours. 8. Code status is full and again, the patient at this point is unable to choose a healthcare proxy, though currently her daughter is listed as her proxy. TIME SPENT: Sixty five minutes was spent admitting this patient. [id number]/CPS #: [id number]
[2016-09-22] MEDS ORDERED: Benzonatate CAP* 100 MG PO PRN (03:20)
[2016-09-22] MEDS ORDERED: Mouth Piece, Nicotine* 1 EACH CARTRIDGE INH PRN (05:41)
[2016-09-22] MEDS ORDERED: Nicotine Inhaler* 10 MG AMP INH PRN (05:41)
[2016-09-22 05:43] LABS: Hematocrit 32 % (35-47); Mean Corpuscular HGB Conc 34 g/dl (31-36); Mean Corpuscular Hemoglobin 40 pg (27-31); Mean Corpuscular Volume 118 fL (80-97); Mean Platelet Volume 9 um3 (7.4-10.4); Red Blood Count 2.72 10^6/ul (4.0-5.4); Red Cell Distribution Width 17 % (10.5-15); White Blood Count 5.4 10^3/ul (3.5-10.8)
[2016-09-22 05:47] LABS: Comments Flag Yes
[2016-09-22 06:04] LABS: BUN/Creatinine Ratio 13.5 (8-20); Calcium 7.2 mg/dL (8.6-10.3); EGFR African American 225.4 (>60); EGFR Non-African American 175.3 (>60); Magnesium 1.7 mg/dL (1.9-2.7); Potassium 3.6 mmol/L (3.5-5.0)
[2016-09-22] MEDS: Heparin VIAL(*) 5000 UNITS/ML VIAL (FIVE THOUSAND) SUBCUT SCH ×2 (08:14→21:52)
[2016-09-22] MEDS: Nystatin CREAM* 15 GM TUBE TOPICAL SCH ×3 (08:14→21:57)
[2016-09-22] MEDS: Multivitamins/Minerals TAB PO SCH (08:14)
[2016-09-22] MEDS: Thiamine TAB* 100 MG TAB PO SCH (08:14)
[2016-09-22] MEDS: Cholecalciferol TAB* 1000 UNITS PO SCH (08:14)
[2016-09-22] MEDS: Folic Acid TAB* 1 MG PO SCH (08:14)
[2016-09-22] MEDS: Mometasone/Formoter 200/5 MDI INH SCH ×2 (08:29→19:43)
[2016-09-22] MEDS: Tiotropium CAP.INH* CAP.INH/18 MCG INH SCH (08:29)
[2016-09-22] MEDS ORDERED: Spiriva Inhaler DEVICE* 1 EACH DEVICE ONE (09:00)
[2016-09-22] MEDS: NS 0.9% 1000 ML* 1,000 ML IV SCH ×2 (10:04→22:07)
[2016-09-22] MEDS ORDERED: Nicotine GUM* 2 MG PO PRN (11:31)
--- NOTE | 2016-09-22 11:38 | PN ---
Subjective Date of Service: 09/22/16 Interval History: Pt is feeling better today than yesterday but she feels very dizzy. She states both like the room is spinning and she feels lightheaded. She states sitting up makes the dizziness worse. She has not had any diarrhea since being here. She states she has also not eaten much. Family History: Unchanged from Admission Social History: Unchanged from Admission Past Medical History: Unchanged from Admission Objective Active Medications: Albuterol (Ventolin Hfa Inhaler*) 2 puff INH Q4HR PRN PRN Reason: SHORTNESS OF BREATH Albuterol/Ipratropium (Duoneb (Albuterol 2.5 Mg/Ipratropium 0.5 Mg)) 1 neb INH Q4H PRN PRN Reason: cough/SOB Benzonatate (Tessalon Cap*) 200 mg PO TID PRN PRN Reason: COUGH Last Admin: 09/22/16 03:54 Dose: 200 mg Cholecalciferol (Vitamin D Tab*) 2,000 units PO DAILY [facility] Last Admin: 09/22/16 08:14 Dose: 2,000 units Folic Acid (Folvite Tab*) 1 mg PO DAILY [facility] Last Admin: 09/22/16 08:14 Dose: 1 mg Heparin Sodium (Porcine) (Heparin Vial(*)) 5,000 units SUBCUT Q12HR [facility] Last Admin: 09/22/16 08:14 Dose: 5,000 units Sodium Chloride (Ns 0.9% 1000 Ml*) 1,000 mls @ 75 mls/hr IV PER RATE [facility] Last Admin: 09/22/16 10:04 Dose: 75 mls/hr Lorazepam (Ativan Tab(*)) 0.5 mg PO Q6H PRN PRN Reason: ANXIETY Mometasone Furoate/Formoterol Fumar (Dulera 200/5 Mdi*) 2 puff INH BID [facility] Last Admin: 09/22/16 08:29 Dose: 2 puff Multivitamins/Minerals (Theragran/Minerals Tab*) 1 tab PO DAILY [facility] Last Admin: 09/22/16 08:14 Dose: 1 tab Nicotine Polacrilex (Nicotine Gum*) 2 mg PO Q2H PRN PRN Reason: CRAVING Nystatin (Nystatin Cream*) 1 applic TOPICAL TID [facility] Last Admin: 09/22/16 08:14 Dose: 1 applic Quetiapine Fumarate (Seroquel Tab*) 100 mg PO BEDTIME [facility] Thiamine HCl (Vitamin B-1 Tab*) 100 mg PO DAILY [facility] Last Admin: 09/22/16 08:14 Dose: 100 mg Tiotropium [place] (Spiriva Cap.Inh*) 1 cap INH DAILY [facility] Last Admin: 09/22/16 08:29 Dose: 1 cap Vital Signs 09/21/16 09/21/16 09/21/16 14:00 14:03 14:15 Temperature 98.5 F Pulse Rate 92 Respiratory 26 26 25 Rate Blood Pressure 74/55 103/68 127/79 (mmHg) O2 Sat by Pulse 97 Oximetry 09/21/16 09/21/16 09/21/16 14:31 15:00 15:07 Temperature Pulse Rate 72 Respiratory 24 25 Rate Blood Pressure 96/70 (mmHg) O2 Sat by Pulse 92 Oximetry 09/21/16 09/21/16 09/21/16 15:17 15:30 15:45 Temperature Pulse Rate 89 89 Respiratory 25 23 Rate Blood Pressure 127/79 117/68 136/68 (mmHg) O2 Sat by Pulse 95 96 Oximetry 09/21/16 09/21/16 09/21/16 16:00 16:15 16:30 Temperature Pulse Rate 87 86 90 Respiratory 22 24 25 Rate Blood Pressure 135/65 122/61 139/67 (mmHg) O2 Sat by Pulse 95 94 95 Oximetry 09/21/16 09/21/16 09/21/16 16:45 17:00 17:15 Temperature Pulse Rate 89 88 93 Respiratory 22 25 23 Rate Blood Pressure 132/66 143/60 140/82 (mmHg) O2 Sat by Pulse 94 95 97 Oximetry 09/21/16 09/21/16 09/21/16 17:30 17:45 18:00 Temperature Pulse Rate 93 94 98 Respiratory 30 25 25 Rate Blood Pressure 126/69 122/84 133/67 (mmHg) O2 Sat by Pulse 95 94 93 Oximetry 09/21/16 09/21/16 09/21/16 18:15 18:30 18:45 Temperature Pulse Rate 95 94 93 Respiratory 27 23 26 Rate Blood Pressure 131/62 123/58 135/67 (mmHg) O2 Sat by Pulse 91 95 93 Oximetry 09/21/16 09/21/16 09/21/16 19:00 19:15 19:30 Temperature Pulse Rate 100 101 Respiratory 20 24 24 Rate Blood Pressure 149/66 114/62 127/60 (mmHg) O2 Sat by Pulse 96 96 Oximetry 09/21/16 09/21/16 09/21/16 19:33 19:45 20:00 Temperature 98.1 F Pulse Rate 95 96 Respiratory 24 19 Rate Blood Pressure 105/60 (mmHg) O2 Sat by Pulse 95 93 Oximetry 09/21/16 09/21/16 09/21/16 20:01 20:15 20:30 Temperature Pulse Rate 96 97 99 Respiratory 18 19 22 Rate Blood Pressure 122/75 129/92 98/83 (mmHg) O2 Sat by Pulse 93 96 94 Oximetry 09/21/16 09/21/16 09/21/16 20:45 20:59 21:00 Temperature Pulse Rate 108 108 Respiratory 23 20 26 Rate Blood Pressure 134/69 112/49 (mmHg) O2 Sat by Pulse 92 93 Oximetry 09/21/16 09/21/16 09/21/16 21:01 21:15 21:30 Temperature Pulse Rate 107 100 99 Respiratory 21 23 25 Rate Blood Pressure 92/51 95/53 (mmHg) O2 Sat by Pulse 94 89 90 Oximetry 09/21/16 09/21/16 09/21/16 21:45 22:00 22:15 Temperature Pulse Rate 97 94 97 Respiratory 22 24 30 Rate Blood Pressure 95/53 95/51 116/62 (mmHg) O2 Sat by Pulse 92 91 94 Oximetry 09/21/16 09/21/16 09/21/16 22:30 22:45 23:00 Temperature Pulse Rate 95 98 91 Respiratory 24 21 25 Rate Blood Pressure 129/101 118/102 96/55 (mmHg) O2 Sat by Pulse 93 94 92 Oximetry 09/21/16 09/21/16 09/21/16 23:15 23:30 23:45 Temperature 98.1 F Pulse Rate 95 96 95 Respiratory 23 25 24 Rate Blood Pressure 91/53 84/47 93/50 (mmHg) O2 Sat by Pulse 93 94 93 Oximetry 09/22/16 09/22/16 09/22/16 00:00 00:01 00:16 Temperature Pulse Rate 95 95 99 Respiratory 26 23 23 Rate Blood Pressure 91/50 121/59 (mmHg) O2 Sat by Pulse 93 94 96 Oximetry 09/22/16 09/22/16 09/22/16 00:30 00:41 00:45 Temperature Pulse Rate 95 95 Respiratory 23 22 22 Rate Blood Pressure 108/54 95/52 (mmHg) O2 Sat by Pulse 93 94 Oximetry 09/22/16 09/22/16 09/22/16 01:00 01:15 01:30 Temperature Pulse Rate 91 91 90 Respiratory 22 23 23 Rate Blood Pressure 91/45 94/49 91/51 (mmHg) O2 Sat by Pulse 93 93 92 Oximetry 09/22/16 09/22/16 09/22/16 01:45 02:00 02:15 Temperature Pulse Rate 89 88 89 Respiratory 22 23 26 Rate Blood Pressure 92/49 98/66 111/59 (mmHg) O2 Sat by Pulse 92 93 94 Oximetry 09/22/16 09/22/16 09/22/16 02:30 02:33 02:45 Temperature Pulse Rate 89 88 Respiratory 24 24 24 Rate Blood Pressure 100/51 103/52 (mmHg) O2 Sat by Pulse 94 95 Oximetry 09/22/16 09/22/16 09/22/16 03:00 03:15 03:26 Temperature Pulse Rate 91 95 Respiratory 22 22 21 Rate Blood Pressure 106/60 119/57 (mmHg) O2 Sat by Pulse 94 96 Oximetry 09/22/16 09/22/16 09/22/16 03:30 03:45 04:00 Temperature 98.3 F Pulse Rate 94 88 91 Respiratory 26 19 23 Rate Blood Pressure 107/55 100/52 130/62 (mmHg) O2 Sat by Pulse 94 91 96 Oximetry 09/22/16 09/22/16 09/22/16 04:15 04:30 04:45 Temperature Pulse Rate 88 87 83 Respiratory 22 22 27 Rate Blood Pressure 118/58 129/64 121/65 (mmHg) O2 Sat by Pulse 94 93 92 Oximetry 09/22/16 09/22/16 09/22/16 05:00 05:15 05:30 Temperature Pulse Rate 88 88 Respiratory 23 23 Rate Blood Pressure 136/62 131/63 132/61 (mmHg) O2 Sat by Pulse 95 93 Oximetry 09/22/16 09/22/16 09/22/16 05:38 05:45 06:00 Temperature Pulse Rate 87 83 Respiratory 18 23 24 Rate Blood Pressure 120/59 126/58 (mmHg) O2 Sat by Pulse 94 93 Oximetry 09/22/16 09/22/1617 06:15 06:30 06:45 Temperature Pulse Rate 80 93 93 Respiratory 24 20 16 Rate Blood Pressure 111/62 126/64 144/60 (mmHg) O2 Sat by Pulse 89 95 96 Oximetry 09/22/16 09/22/16 09/22/16 07:00 07:15 07:30 Temperature Pulse Rate 88 91 88 Respiratory 19 24 21 Rate Blood Pressure 141/65 144/76 127/62 (mmHg) O2 Sat by Pulse 94 95 94 Oximetry 09/22/16 09/22/16 09/22/16 07:45 08:00 08:15 Temperature 99 F Pulse Rate 84 80 78 Respiratory 24 14 24 Rate Blood Pressure 137/61 130/64 144/64 (mmHg) O2 Sat by Pulse 94 96 95 Oximetry 09/22/16 09/22/16 09/22/16 08:30 09:00 09:15 Temperature Pulse Rate 85 101 Respiratory 24 15 21 Rate Blood Pressure 149/119 147/75 (mmHg) O2 Sat by Pulse 96 95 Oximetry 09/22/16 09/22/16 09/22/16 09:30 09:45 10:00 Temperature Pulse Rate 94 90 93 Respiratory 23 26 25 Rate Blood Pressure 138/98 105/91 141/22 (mmHg) O2 Sat by Pulse 95 96 97 Oximetry 09/22/16 11:20 Temperature 99 F Pulse Rate Respiratory Rate Blood Pressure (mmHg) O2 Sat by Pulse Oximetry Oxygen Devices in Use Now: None Appearance: Middle aged female who appears much older than her stated age, sitting up in bed, NAD Eyes: No Scleral Icterus Ears/Nose/Mouth/Throat: Mucous Membranes Moist, - - tongue is less swollen, less bruising noted, teeth are in poor repair Respiratory: Symmetrical Chest Expansion and Respiratory Effort, Clear to Auscultation Cardiovascular: NL Sounds; No Murmurs; No JVD, RRR, No Edema Abdominal: NL Sounds; No Tenderness; No Distention Extremities: No Clubbing, Cyanosis Skin: No Rash or Ulcers, No Nodules or Sclerosis Neurological: Alert and Oriented x 3 Result Diagrams: 09/22/16 05:34 09/22/16 05:34 Additional Lab and Data: Lab Results 09/21/16 09/21/16 09/21/16 Range/Units 11:11 11:11 11:11 WBC 5.7 (3.5-10.8) 10^3/ul RBC 3.04 L (4.0-5.4) 10^6/ul Hgb 11.9 L (12.0-16.0) g/dl Hct 35 (35-47) % MCV 115 H (80-97) fL MCH 39 H (27-31) pg MCHC 34 (31-36) g/dl RDW 17 H (10.5-15) % Plt Count 103 L (150-450) 10^3/ul MPV 9 (7.4-10.4) um3 Neut % (Auto) 71.2 (38-83) % Lymph % (Auto) 15.5 L (25-47) % [place] % (Auto) 11.5 H (1-9) % Eos % (Auto) 1.1 (0-6) % Baso % (Auto) 0.7 (0-2) % Absolute Neuts (auto) 4.1 (1.5-7.7) 10^3/ul Absolute Lymphs (auto) 0.9 L (1.0-4.8) 10^3/ul Absolute Monos (auto) 0.7 (0-0.8) 10^3/ul Absolute Eos (auto) 0.1 (0-0.6) 10^3/ul Absolute Basos (auto) 0 (0-0.2) 10^3/ul Absolute Nucleated RBC 0.01 10^3/ul Nucleated RBC % 0.2 INR (Anticoag Therapy) (0.89-1.11) Sodium 127 L (133-145) mmol/L Potassium 2.6 L* (3.5-5.0) mmol/L Chloride 92 L (101-111) mmol/L Carbon Dioxide 23 (22-32) mmol/L Anion Gap 12 H (2-11) mmol/L BUN 5 L (6-24) mg/dL Creatinine 0.36 L (0.51-0.95) mg/dL Est GFR ( Amer) 232.7 (>60) Est GFR (Non-Af Amer) 180.9 (>60) BUN/Creatinine Ratio 13.9 (8-20) Glucose 92 (70-100) mg/dL Lactic Acid 0.7 (0.5-2.0) mmol/L Calcium 7.5 L (8.6-10.3) mg/dL Magnesium 0.7 L* (1.9-2.7) mg/dL Total Bilirubin 1.40 H (0.2-1.0) mg/dL AST 40 H (13-39) U/L ALT 16 (7-52) U/L Alkaline Phosphatase 68 (34-104) U/L Total Creatine Kinase 140 (10-223) U/L Troponin I 0.07 H* (<0.04) ng/mL C-Reactive Protein 1.97 (< 5.00) mg/L B-Natriuretic Peptide ( - 100) pg/mL Total Protein 5.7 L (6.4-8.9) g/dL Albumin 3.3 (3.2-5.2) g/dL Globulin 2.4 (2-4) g/dL Albumin/Globulin Ratio 1.4 (1-3) TSH 2.91 (0.34-5.60) mcIU/mL Urine Color Urine Appearance Urine pH (5-9) Ur Specific [place] (1.010-1.030) Urine Protein (Negative) Urine Ketones (Negative) Urine Blood (Negative) Urine Nitrate (Negative) Urine Bilirubin (Negative) Urine Urobilinogen (Negative) Ur Leukocyte Esterase (Negative) Urine WBC (Auto) (Absent) Urine RBC (Auto) (Absent) Ur Squamous Epith Cells (Absent) Urine Bacteria (Absent) Urine Glucose (Negative) Urine Opiates Screen (None Detect) Ur Barbiturates Screen (None Detect) Ur Phencyclidine Scrn (None Detect) Ur Amphetamines Screen (None Detect) U Benzodiazepines Scrn (None Detect) Urine Cocaine Screen (None Detect) U Cannabinoids Screen (None Detect) Serum Alcohol < 10 (<10) mg/dL 09/21/16 09/21/16 09/21/16 Range/Units 11:11 11:11 13:23 WBC (3.5-10.8) 10^3/ul RBC (4.0-5.4) 10^6/ul Hgb (12.0-16.0) g/dl Hct (35-47) % MCV (80-97) fL MCH (27-31) pg MCHC (31-36) g/dl RDW (10.5-15) % Plt Count (150-450) 10^3/ul MPV (7.4-10.4) um3 Neut % (Auto) (38-83) % Lymph % (Auto) (25-47) % [place] % (Auto) (1-9) % Eos % (Auto) (0-6) % Baso % (Auto) (0-2) % Absolute Neuts (auto) (1.5-7.7) 10^3/ul Absolute Lymphs (auto) (1.0-4.8) 10^3/ul Absolute Monos (auto) (0-0.8) 10^3/ul Absolute Eos (auto) (0-0.6) 10^3/ul Absolute Basos (auto) (0-0.2) 10^3/ul Absolute Nucleated RBC 10^3/ul Nucleated RBC % INR (Anticoag Therapy) 1.15 H (0.89-1.11) Sodium (133-145) mmol/L Potassium (3.5-5.0) mmol/L Chloride (101-111) mmol/L Carbon Dioxide (22-32) mmol/L Anion Gap (2-11) mmol/L BUN (6-24) mg/dL Creatinine (0.51-0.95) mg/dL Est GFR ( Amer) (>60) Est GFR (Non-Af Amer) (>60) BUN/Creatinine Ratio (8-20) Glucose (70-100) mg/dL Lactic Acid (0.5-2.0) mmol/L Calcium (8.6-10.3) mg/dL Magnesium (1.9-2.7) mg/dL Total Bilirubin (0.2-1.0) mg/dL AST (13-39) U/L ALT (7-52) U/L Alkaline Phosphatase (34-104) U/L Total Creatine Kinase (10-223) U/L Troponin I (<0.04) ng/mL C-Reactive Protein (< 5.00) mg/L B-Natriuretic Peptide 155 H ( - 100) pg/mL Total Protein (6.4-8.9) g/dL Albumin (3.2-5.2) g/dL Globulin (2-4) g/dL Albumin/Globulin Ratio (1-3) TSH (0.34-5.60) mcIU/mL Urine Color Yellow Urine Appearance Clear Urine pH 7.0 (5-9) Ur Specific [place] 1.003 L (1.010-1.030) Urine Protein Negative (Negative) Urine Ketones Trace H (Negative) Urine Blood 1+ H (Negative) Urine Nitrate Negative (Negative) Urine Bilirubin Negative (Negative) Urine Urobilinogen Negative (Negative) Ur Leukocyte Esterase Trace H (Negative) Urine WBC (Auto) Trace(0-5/hpf) (Absent) Urine RBC (Auto) Trace(0-2/hpf) (Absent) Ur Squamous Epith Cells Present H (Absent) Urine Bacteria Absent (Absent) Urine Glucose Negative (Negative) Urine Opiates Screen (None Detect) Ur Barbiturates Screen (None Detect) Ur Phencyclidine Scrn (None Detect) Ur Amphetamines Screen (None Detect) U Benzodiazepines Scrn (None Detect) Urine Cocaine Screen (None Detect) U Cannabinoids Screen (None Detect) Serum Alcohol (<10) mg/dL 09/21/16 Range/Units 13:23 WBC (3.5-10.8) 10^3/ul RBC (4.0-5.4) 10^6/ul Hgb (12.0-16.0) g/dl Hct (35-47) % MCV (80-97) fL MCH (27-31) pg MCHC (31-36) g/dl RDW (10.5-15) % Plt Count (150-450) 10^3/ul MPV (7.4-10.4) um3 Neut % (Auto) (38-83) % Lymph % (Auto) (25-47) % [place] % (Auto) (1-9) % Eos % (Auto) (0-6) % Baso % (Auto) (0-2) % Absolute Neuts (auto) (1.5-7.7) 10^3/ul Absolute Lymphs (auto) (1.0-4.8) 10^3/ul Absolute Monos (auto) (0-0.8) 10^3/ul Absolute Eos (auto) (0-0.6) 10^3/ul Absolute Basos (auto) (0-0.2) 10^3/ul Absolute Nucleated RBC 10^3/ul Nucleated RBC % INR (Anticoag Therapy) (0.89-1.11) Sodium (133-145) mmol/L Potassium (3.5-5.0) mmol/L Chloride (101-111) mmol/L Carbon Dioxide (22-32) mmol/L Anion Gap (2-11) mmol/L BUN (6-24) mg/dL Creatinine (0.51-0.95) mg/dL Est GFR ( Amer) (>60) Est GFR (Non-Af Amer) (>60) BUN/Creatinine Ratio (8-20) Glucose (70-100) mg/dL Lactic Acid (0.5-2.0) mmol/L Calcium (8.6-10.3) mg/dL Magnesium (1.9-2.7) mg/dL Total Bilirubin (0.2-1.0) mg/dL AST (13-39) U/L ALT (7-52) U/L Alkaline Phosphatase (34-104) U/L Total Creatine Kinase (10-223) U/L Troponin I (<0.04) ng/mL C-Reactive Protein (< 5.00) mg/L B-Natriuretic Peptide ( - 100) pg/mL Total Protein (6.4-8.9) g/dL Albumin (3.2-5.2) g/dL Globulin (2-4) g/dL Albumin/Globulin Ratio (1-3) TSH (0.34-5.60) mcIU/mL Urine Color Urine Appearance Urine pH (5-9) Ur Specific [place] (1.010-1.030) Urine Protein (Negative) Urine Ketones (Negative) Urine Blood (Negative) Urine Nitrate (Negative) Urine Bilirubin (Negative) Urine Urobilinogen (Negative) Ur Leukocyte Esterase (Negative) Urine WBC (Auto) (Absent) Urine RBC (Auto) (Absent) Ur Squamous Epith Cells (Absent) Urine Bacteria (Absent) Urine Glucose (Negative) Urine Opiates Screen None detected (None Detect) Ur Barbiturates Screen None detected (None Detect) Ur Phencyclidine Scrn None detected (None Detect) Ur Amphetamines Screen None detected (None Detect) U Benzodiazepines Scrn None detected (None Detect) Urine Cocaine Screen None detected (None Detect) U Cannabinoids Screen None detected (None Detect) Serum Alcohol (<10) mg/dL Microbiology and Other Data: Microbiology 09/21/16 16:04 Nasal Screen MRSA (PCR)(KYLIE) - Final Nasal Mrsa Negative Assess/Plan/Problems-Billing Ms Bland is a 66 yo F who has a h/o alcohol and tobacco abuse who presented to the ER wtih c/o a swollen tongue and was admitted for marked hypokalemia and hypomagnesemia. - Patient Problems (1) Swollen tongue Current Visit: Yes Status: Acute Code(s): R22.0 - LOCALIZED SWELLING, MASS AND LUMP, HEAD SNOMED Code(s): 348356233 Comment: ? if pt bit her tongue during a possible EtOH withdrawal seizure as she stopped drinking earlier this week (she now states she stopped this past Saturday). (2) Hypokalemia Current Visit: Yes Status: Acute Code(s): E87.6 - HYPOKALEMIA SNOMED Code( s): 58130524 Comment: Improved. It does not sound like the patient was reliably taking her usual dose of potassium at home. Will continue to replace and check her K level. (3) Hypomagnesemia Current Visit: Yes Status: Acute Code(s): E83.42 - HYPOMAGNESEMIA SNOMED Code(s): 362222700 Comment: Pt stopped her magnesium supplement due to the diarrhea she was having at home. Will continue to replace IV and follow up her Mg level in the AM. (4) Elevated troponin Current Visit: Yes Status: Acute Code(s): R74.8 - ABNORMAL LEVELS OF OTHER SERUM ENZYMES SNOMED Code(s): 868701274 Comment: The patient did not have any chest pain. Will get echo tomorrow. ? demand ischemia. (5) Diarrhea Current Visit: Yes Status: Acute Code(s): R19.7 - DIARRHEA, UNSPECIFIED SNOMED Code(s): 41903147 Comment: Appears to have resolved at this point. If she starts having more loose stools will send for stool studies. (6) Alcohol abuse Current Visit: Yes Status: Chronic Code(s): F10.10 - ALCOHOL ABUSE, UNCOMPLICATED SNOMED Code(s): 28670772 Comment: WAM discontinued as she is not showing any signs of withdrawal at this time. (7) COPD (chronic obstructive pulmonary disease) Current Visit: Yes Status: Chronic Code(s): J44.9 - CHRONIC OBSTRUCTIVE PULMONARY DISEASE, UNSPECIFIED SNOMED Code(s): 92632193 Comment: No signs of exacerbation. Continue prn albuterol and duoneb. (8) Tobacco user Current Visit: Yes Status: Chronic Code(s): Z72.0 - TOBACCO USE SNOMED Code(s): 931839994 Comment: Continue nicotine replacement therapy with nicotine gum. (9) DVT prophylaxis Current Visit: Yes Status: Acute Code(s): WRE6187 - SNOMED Code(s): 913203800 Comment: SQ heparin (10) Full code status Current Visit: Yes Status: Acute Code(s): Z78.9 - OTHER SPECIFIED HEALTH STATUS SNOMED Code(s): 085675361
[2016-09-22] MEDS: LORazepam TAB(*) 0.5 MG PO PRN ×2 (11:39→20:12)
[2016-09-22] MEDS ORDERED: QUEtiapine TAB* 100 MG PO SCH (21:00)
[2016-09-23] MEDS ORDERED: Potassium Chloride LIQUID* 20 MEQ PACKET PO ONE (07:48)
[2016-09-23] MEDS ORDERED: Magnesium Sulfate 2 GM IV* 2 GM/50 ML BAG IVPB ONE (07:48)
[2016-09-23] MEDS: Tiotropium CAP.INH* CAP.INH/18 MCG INH SCH (07:51)
[2016-09-23] MEDS: Mometasone/Formoter 200/5 MDI INH SCH (07:51)
--- NOTE | 2016-09-23 08:16 | PN ---
Subjective Date of Service: 09/23/16 Interval History: Pt is feeling well. No c/o dizziness today. She states she has walked around some since being moved to . She is anxious to go home. Family History: Unchanged from Admission Social History: Unchanged from Admission Past Medical History: Unchanged from Admission Objective Active Medications: Albuterol (Ventolin Hfa Inhaler*) 2 puff INH Q4HR PRN PRN Reason: SHORTNESS OF BREATH Albuterol/Ipratropium (Duoneb (Albuterol 2.5 Mg/Ipratropium 0.5 Mg)) 1 neb INH Q4H PRN PRN Reason: cough/SOB Last Admin: 09/22/16 19:41 Dose: 1 neb Benzonatate (Tessalon Cap*) 200 mg PO TID PRN PRN Reason: COUGH Last Admin: 09/22/16 03:54 Dose: 200 mg Cholecalciferol (Vitamin D Tab*) 2,000 units PO DAILY [facility] Last Admin: 09/22/16 08:14 Dose: 2,000 units Folic Acid (Folvite Tab*) 1 mg PO DAILY [facility] Last Admin: 09/22/16 08:14 Dose: 1 mg Heparin Sodium (Porcine) (Heparin Vial(*)) 5,000 units SUBCUT Q12HR HERNANDEZ Last Admin: 09/22/16 21:52 Dose: 5,000 units Sodium Chloride (Ns 0.9% 1000 Ml*) 1,000 mls @ 75 mls/hr IV PER RATE HERNANDEZ Last Admin: 09/22/16 22:07 Dose: 75 mls/hr Magnesium Sulfate (Magnesium Sulfate 2 Gm Iv*) 2 gm in 50 mls @ 50 mls/hr IVPB ONCE ONE Stop: 09/23/16 08:47 Lorazepam (Ativan Tab(*)) 0.5 mg PO Q6H PRN PRN Reason: ANXIETY Last Admin: 09/22/16 20:12 Dose: 0.5 mg Mometasone Furoate/Formoterol Fumar (Dulera 200/5 Mdi*) 2 puff INH BID [facility] Last Admin: 09/23/16 07:51 Dose: 2 puff Multivitamins/Minerals (Theragran/Minerals Tab*) 1 tab PO DAILY [facility] Last Admin: 09/22/16 08:14 Dose: 1 tab Nicotine Polacrilex (Nicotine Gum*) 2 mg PO Q2H PRN PRN Reason: CRAVING Nystatin (Nystatin Cream*) 1 applic TOPICAL TID [facility] Last Admin: 09/22/16 21:57 Dose: 1 applic Quetiapine Fumarate (Seroquel Tab*) 100 mg PO BEDTIME [facility] Last Admin: 09/22/16 21:58 Dose: 100 mg Thiamine HCl (Vitamin B-1 Tab*) 100 mg PO DAILY [facility] Last Admin: 09/22/16 08:14 Dose: 100 mg Tiotropium [place] (Spiriva Cap.Inh*) 1 cap INH DAILY [facility] Last Admin: 09/23/16 07:51 Dose: 1 cap Vital Signs 09/22/16 09/22/16 09/22/16 08:15 08:30 09:00 Temperature Pulse Rate 78 85 101 Respiratory 24 24 15 Rate Blood Pressure 144/64 149/119 (mmHg) O2 Sat by Pulse 95 96 95 Oximetry 09/22/16 09/22/16 09/22/16 09:15 09:30 09:45 Temperature Pulse Rate 94 90 Respiratory 21 23 26 Rate Blood Pressure 147/75 138/98 105/91 (mmHg) O2 Sat by Pulse 95 96 Oximetry 09/22/16 09/22/16 09/22/16 10:00 10:15 10:30 Temperature Pulse Rate 93 90 92 Respiratory 25 22 23 Rate Blood Pressure 141/22 126/90 147/63 (mmHg) O2 Sat by Pulse 97 96 98 Oximetry 09/22/16 09/22/16 09/22/16 10:45 11:00 11:15 Temperature Pulse Rate 94 90 86 Respiratory 20 18 25 Rate Blood Pressure 142/73 144/73 116/96 (mmHg) O2 Sat by Pulse 98 95 96 Oximetry 09/22/16 09/22/16 09/22/16 11:20 11:30 11:33 Temperature 99 F Pulse Rate 92 89 Respiratory 17 18 Rate Blood Pressure 157/69 153/67 (mmHg) O2 Sat by Pulse 99 99 Oximetry 09/22/16 09/22/16 09/22/16 11:39 12:43 16:06 Temperature 98.9 F 98.0 F Pulse Rate 84 86 Respiratory 20 20 24 Rate Blood Pressure 140/75 119/70 (mmHg) O2 Sat by Pulse 100 98 Oximetry 09/22/16 09/22/16 09/22/16 19:43 20:00 20:12 Temperature 98.3 F Pulse Rate 90 Respiratory 24 20 20 Rate Blood Pressure 124/68 (mmHg) O2 Sat by Pulse 98 Oximetry 09/22/16 09/23/16 09/23/16 22:00 02:45 07:50 Temperature 97.6 F 98.1 F Pulse Rate 79 87 Respiratory 20 20 20 Rate Blood Pressure 119/70 145/67 (mmHg) O2 Sat by Pulse 99 97 Oximetry Oxygen Devices in Use Now: None Appearance: Middle aged female who appears older than her stated age sitting up in bed, NAD Eyes: No Scleral Icterus Ears/Nose/Mouth/Throat: Mucous Membranes Moist, - - no significant bruising noted on the tongue at this time Respiratory: Symmetrical Chest Expansion and Respiratory Effort, Clear to Auscultation, - - + frequent moist cough (pt states this is a chronic issue first thing in the morning) Cardiovascular: NL Sounds; No Murmurs; No JVD, RRR Abdominal: NL Sounds; No Tenderness; No Distention Extremities: No Clubbing, Cyanosis Skin: No Rash or Ulcers, No Nodules or Sclerosis Neurological: Alert and Oriented x 3 Result Diagrams: 09/22/16 05:34 09/22/16 05:34 Additional Lab and Data: Lab Results 09/21/16 09/21/16 09/21/16 Range/Units 11:11 11:11 11:11 WBC 5.7 (3.5-10.8) 10^3/ul RBC 3.04 L (4.0-5.4) 10^6/ul Hgb 11.9 L (12.0-16.0) g/dl Hct 35 (35-47) % MCV 115 H (80-97) fL MCH 39 H (27-31) pg MCHC 34 (31-36) g/dl RDW 17 H (10.5-15) % Plt Count 103 L (150-450) 10^3/ul MPV 9 (7.4-10.4) um3 Neut % (Auto) 71.2 (38-83) % Lymph % (Auto) 15.5 L (25-47) % [place] % (Auto) 11.5 H (1-9) % Eos % (Auto) 1.1 (0-6) % Baso % (Auto) 0.7 (0-2) % Absolute Neuts (auto) 4.1 (1.5-7.7) 10^3/ul Absolute Lymphs (auto) 0.9 L (1.0-4.8) 10^3/ul Absolute Monos (auto) 0.7 (0-0.8) 10^3/ul Absolute Eos (auto) 0.1 (0-0.6) 10^3/ul Absolute Basos (auto) 0 (0-0.2) 10^3/ul Absolute Nucleated RBC 0.01 10^3/ul Nucleated RBC % 0.2 INR (Anticoag Therapy) (0.89-1.11) Sodium 127 L (133-145) mmol/L Potassium 2.6 L* (3.5-5.0) mmol/L Chloride 92 L (101-111) mmol/L Carbon Dioxide 23 (22-32) mmol/L Anion Gap 12 H (2-11) mmol/L BUN 5 L (6-24) mg/dL Creatinine 0.36 L (0.51-0.95) mg/dL Est GFR ( Amer) 232.7 (>60) Est GFR (Non-Af Amer) 180.9 (>60) BUN/Creatinine Ratio 13.9 (8-20) Glucose 92 (70-100) mg/dL Lactic Acid 0.7 (0.5-2.0) mmol/L Calcium 7.5 L (8.6-10.3) mg/dL Magnesium 0.7 L* (1.9-2.7) mg/dL Total Bilirubin 1.40 H (0.2-1.0) mg/dL AST 40 H (13-39) U/L ALT 16 (7-52) U/L Alkaline Phosphatase 68 (34-104) U/L Total Creatine Kinase 140 (10-223) U/L Troponin I 0.07 H* (<0.04) ng/mL C-Reactive Protein 1.97 (< 5.00) mg/L B-Natriuretic Peptide ( - 100) pg/mL Total Protein 5.7 L (6.4-8.9) g/dL Albumin 3.3 (3.2-5.2) g/dL Globulin 2.4 (2-4) g/dL Albumin/Globulin Ratio 1.4 (1-3) TSH 2.91 (0.34-5.60) mcIU/mL Urine Color Urine Appearance Urine pH (5-9) Ur Specific [place] (1.010-1.030) Urine Protein (Negative) Urine Ketones (Negative) Urine Blood (Negative) Urine Nitrate (Negative) Urine Bilirubin (Negative) Urine Urobilinogen (Negative) Ur Leukocyte Esterase (Negative) Urine WBC (Auto) (Absent) Urine RBC (Auto) (Absent) Ur Squamous Epith Cells (Absent) Urine Bacteria (Absent) Urine Glucose (Negative) Urine Opiates Screen (None Detect) Ur Barbiturates Screen (None Detect) Ur Phencyclidine Scrn (None Detect) Ur Amphetamines Screen (None Detect) U Benzodiazepines Scrn (None Detect) Urine Cocaine Screen (None Detect) U Cannabinoids Screen (None Detect) Serum Alcohol < 10 (<10) mg/dL 09/21/16 09/21/16 09/21/16 Range/Units 11:11 11:11 13:23 WBC (3.5-10.8) 10^3/ul RBC (4.0-5.4) 10^6/ul Hgb (12.0-16.0) g/dl Hct (35-47) % MCV (80-97) fL MCH (27-31) pg MCHC (31-36) g/dl RDW (10.5-15) % Plt Count (150-450) 10^3/ul MPV (7.4-10.4) um3 Neut % (Auto) (38-83) % Lymph % (Auto) (25-47) % [place] % (Auto) (1-9) % Eos % (Auto) (0-6) % Baso % (Auto) (0-2) % Absolute Neuts (auto) (1.5-7.7) 10^3/ul Absolute Lymphs (auto) (1.0-4.8) 10^3/ul Absolute Monos (auto) (0-0.8) 10^3/ul Absolute Eos (auto) (0-0.6) 10^3/ul Absolute Basos (auto) (0-0.2) 10^3/ul Absolute Nucleated RBC 10^3/ul Nucleated RBC % INR (Anticoag Therapy) 1.15 H (0.89-1.11) Sodium (133-145) mmol/L Potassium (3.5-5.0) mmol/L Chloride (101-111) mmol/L Carbon Dioxide (22-32) mmol/L Anion Gap (2-11) mmol/L BUN (6-24) mg/dL Creatinine (0.51-0.95) mg/dL Est GFR ( Amer) (>60) Est GFR (Non-Af Amer) (>60) BUN/Creatinine Ratio (8-20) Glucose (70-100) mg/dL Lactic Acid (0.5-2.0) mmol/L Calcium (8.6-10.3) mg/dL Magnesium (1.9-2.7) mg/dL Total Bilirubin (0.2-1.0) mg/dL AST (13-39) U/L ALT (7-52) U/L Alkaline Phosphatase (34-104) U/L Total Creatine Kinase (10-223) U/L Troponin I (<0.04) ng/mL C-Reactive Protein (< 5.00) mg/L B-Natriuretic Peptide 155 H ( - 100) pg/mL Total Protein (6.4-8.9) g/dL Albumin (3.2-5.2) g/dL Globulin (2-4) g/dL Albumin/Globulin Ratio (1-3) TSH (0.34-5.60) mcIU/mL Urine Color Yellow Urine Appearance Clear Urine pH 7.0 (5-9) Ur Specific [place] 1.003 L (1.010-1.030) Urine Protein Negative (Negative) Urine Ketones Trace H (Negative) Urine Blood 1+ H (Negative) Urine Nitrate Negative (Negative) Urine Bilirubin Negative (Negative) Urine Urobilinogen Negative (Negative) Ur Leukocyte Esterase Trace H (Negative) Urine WBC (Auto) Trace(0-5/hpf) (Absent) Urine RBC (Auto) Trace(0-2/hpf) (Absent) Ur Squamous Epith Cells Present H (Absent) Urine Bacteria Absent (Absent) Urine Glucose Negative (Negative) Urine Opiates Screen (None Detect) Ur Barbiturates Screen (None Detect) Ur Phencyclidine Scrn (None Detect) Ur Amphetamines Screen (None Detect) U Benzodiazepines Scrn (None Detect) Urine Cocaine Screen (None Detect) U Cannabinoids Screen (None Detect) Serum Alcohol (<10) mg/dL 09/21/16 Range/Units 13:23 WBC (3.5-10.8) 10^3/ul RBC (4.0-5.4) 10^6/ul Hgb (12.0-16.0) g/dl Hct (35-47) % MCV (80-97) fL MCH (27-31) pg MCHC (31-36) g/dl RDW (10.5-15) % Plt Count (150-450) 10^3/ul MPV (7.4-10.4) um3 Neut % (Auto) (38-83) % Lymph % (Auto) (25-47) % [place] % (Auto) (1-9) % Eos % (Auto) (0-6) % Baso % (Auto) (0-2) % Absolute Neuts (auto) (1.5-7.7) 10^3/ul Absolute Lymphs (auto) (1.0-4.8) 10^3/ul Absolute Monos (auto) (0-0.8) 10^3/ul Absolute Eos (auto) (0-0.6) 10^3/ul Absolute Basos (auto) (0-0.2) 10^3/ul Absolute Nucleated RBC 10^3/ul Nucleated RBC % INR (Anticoag Therapy) (0.89-1.11) Sodium (133-145) mmol/L Potassium (3.5-5.0) mmol/L Chloride (101-111) mmol/L Carbon Dioxide (22-32) mmol/L Anion Gap (2-11) mmol/L BUN (6-24) mg/dL Creatinine (0.51-0.95) mg/dL Est GFR ( Amer) (>60) Est GFR (Non-Af Amer) (>60) BUN/Creatinine Ratio (8-20) Glucose (70-100) mg/dL Lactic Acid (0.5-2.0) mmol/L Calcium (8.6-10.3) mg/dL Magnesium (1.9-2.7) mg/dL Total Bilirubin (0.2-1.0) mg/dL AST (13-39) U/L ALT (7-52) U/L Alkaline Phosphatase (34-104) U/L Total Creatine Kinase (10-223) U/L Troponin I (<0.04) ng/mL C-Reactive Protein (< 5.00) mg/L B-Natriuretic Peptide ( - 100) pg/mL Total Protein (6.4-8.9) g/dL Albumin (3.2-5.2) g/dL Globulin (2-4) g/dL Albumin/Globulin Ratio (1-3) TSH (0.34-5.60) mcIU/mL Urine Color Urine Appearance Urine pH (5-9) Ur Specific [place] (1.010-1.030) Urine Protein (Negative) Urine Ketones (Negative) Urine Blood (Negative) Urine Nitrate (Negative) Urine Bilirubin (Negative) Urine Urobilinogen (Negative) Ur Leukocyte Esterase (Negative) Urine WBC (Auto) (Absent) Urine RBC (Auto) (Absent) Ur Squamous Epith Cells (Absent) Urine Bacteria (Absent) Urine Glucose (Negative) Urine Opiates Screen None detected (None Detect) Ur Barbiturates Screen None detected (None Detect) Ur Phencyclidine Scrn None detected (None Detect) Ur Amphetamines Screen None detected (None Detect) U Benzodiazepines Scrn None detected (None Detect) Urine Cocaine Screen None detected (None Detect) U Cannabinoids Screen None detected (None Detect) Serum Alcohol (<10) mg/dL Microbiology and Other Data: Microbiology 09/21/16 16:04 Nasal Screen MRSA (PCR)(KYLIE) - Final Nasal Mrsa Negative Assess/Plan/Problems-Billing Ms Bland is a 66 yo F who has a h/o alcohol and tobacco abuse who presented to the ER wtih c/o a swollen tongue and was admitted for marked hypokalemia and hypomagnesemia. - Patient Problems (1) Swollen tongue Current Visit: Yes Status: Acute Code(s): R22.0 - LOCALIZED SWELLING, MASS AND LUMP, HEAD SNOMED Code(s): 558896628 Comment: ? if pt bit her tongue during a possible EtOH withdrawal seizure as she stopped drinking earlier this week (she now states she stopped this past Saturday). Tongue swelling is improving and she has no issues with swallowing secretions. (2) Hypokalemia Current Visit: Yes Status: Acute Code(s): E87.6 - HYPOKALEMIA SNOMED Code( s): 06911491 Comment: Improved. It does not sound like the patient was reliably taking her usual dose of potassium at home. Give KCl 40mEq now and recheck BMP at 1600. If stable will d/c pt home. (3) Hypomagnesemia Current Visit: Yes Status: Acute Code(s): E83.42 - HYPOMAGNESEMIA SNOMED Code(s): 693587369 Comment: Give 2g Magnesium sulfate this AM then recheck level at 1600. (4) Elevated troponin Current Visit: Yes Status: Acute Code(s): R74.8 - ABNORMAL LEVELS OF OTHER SERUM ENZYMES SNOMED Code(s): 880839029 Comment: The patient did not have any chest pain. Echo pending. ? demand ischemia. (5) Diarrhea Current Visit: Yes Status: Acute Code(s): R19.7 - DIARRHEA, UNSPECIFIED SNOMED Code(s): 91525100 Comment: No diarrhea. Continue to monitor. (6) Alcohol abuse Current Visit: Yes Status: Chronic Code(s): F10.10 - ALCOHOL ABUSE, UNCOMPLICATED SNOMED Code(s): 11428070 Comment: WAM discontinued as she is not showing any signs of withdrawal at this time. Pt will consider remaining sober for now. (7) COPD (chronic obstructive pulmonary disease) Current Visit: Yes Status: Chronic Code(s): J44.9 - CHRONIC OBSTRUCTIVE PULMONARY DISEASE, UNSPECIFIED SNOMED Code(s): 15257868 Comment: No signs of exacerbation. Continue prn albuterol and duoneb. (8) Tobacco user Current Visit: Yes Status: Chronic Code(s): Z72.0 - TOBACCO USE SNOMED Code(s): 206618430 Comment: Continue nicotine replacement therapy with nicotine gum. (9) DVT prophylaxis Current Visit: Yes Status: Acute Code(s): JRE4765 - SNOMED Code(s): 896827352 Comment: SQ heparin (10) Full code status Current Visit: Yes Status: Acute Code(s): Z78.9 - OTHER SPECIFIED HEALTH STATUS SNOMED Code(s): 450240531 Status and Disposition: d/c home this afternoon if labs stable.
[2016-09-23] MEDS: Thiamine TAB* 100 MG TAB PO SCH (09:01)
[2016-09-23] MEDS: Cholecalciferol TAB* 1000 UNITS PO SCH (09:01)
[2016-09-23] MEDS: Multivitamins/Minerals TAB PO SCH (09:01)
[2016-09-23] MEDS: Heparin VIAL(*) 5000 UNITS/ML VIAL (FIVE THOUSAND) SUBCUT SCH (09:01)
[2016-09-23] MEDS: Folic Acid TAB* 1 MG PO SCH (09:01)
[2016-09-23] MEDS: Nystatin CREAM* 15 GM TUBE TOPICAL SCH ×2 (09:02→15:19)
[2016-09-23] MEDS: LORazepam TAB(*) 0.5 MG PO PRN ×2 (09:18→15:18)
[2016-09-23 16:30] VITALS: BP 146/69
[2016-09-23 16:43] LABS: BUN/Creatinine Ratio 10.9 (8-20); Calcium 8.2 mg/dL (8.6-10.3); EGFR African American 175.3 (>60); EGFR Non-African American 136.3 (>60); Magnesium 1.5 mg/dL (1.9-2.7); Potassium 4.2 mmol/L (3.5-5.0)
[2016-09-23] MEDS ORDERED: Magnesium Oxide TAB* 400 MG PO ONE (16:57)
--- NOTE | 2016-09-24 16:30 | DS ---
CC: Dorcas Chan NP * DISCHARGE SUMMARY: DATE OF ADMISSION: 09/21/16. DATE OF DISCHARGE: 09/23/16. PRIMARY CARE PROVIDER: Dorcas Chan NP. PRINCIPAL DIAGNOSES: 1. Tongue swelling likely secondary to trauma secondary to bite. 2. Severe hypokalemia. 3. Hypomagnesemia. 4. Mild hyponatremia - improved. SECONDARY DIAGNOSES: 1. Alcoholism. 2. Ongoing tobacco abuse. 3. Chronic obstructive pulmonary disease. 4. Hypertension. DISCHARGE MEDICATIONS: 1. Spiriva 1 puff inhaled daily. 2. Thiamine 100 mg p.o. daily. 3. Seroquel 50 to 100 mg p.o. q.h.s. 4. Potassium chloride 20 mEq p.o. b.i.d. 5. Multivitamin 1 tab p.o. daily. 6. Dulera 200/5 two puffs inhaled twice daily. 7. Magnesium oxide 500 mg p.o. daily. 8. Ativan 0.5 to 1 mg p.o. b.i.d. p.r.n. anxiety. 9. Folic acid 1 mg p.o. daily. 10. Vitamin D3 2000 units p.o. daily. 11. DuoNeb 1 neb inhaled q.4 hours p.r.n. shortness of breath. 12. Albuterol 2 puffs inhaled q.4 hours p.r.n. shortness of breath. HOSPITAL COURSE: Ms. Bland is a 66-year-old female with a long standing history of alcoholism and tobacco abuse, who presents to the emergency room with complaints of tongue swelling. The patient does not recall any trauma to her tongue, however, it does appear that there was some trauma as her tongue appeared bruised on admission. My suspicion is that the patient may have an had an alcohol withdrawal seizure to stop drinking two days prior to admission and bit her tongue. The patient has had no other signs of alcohol withdrawal during the course of her hospitalization. She had improvement in the swelling of her tongue as well as the bruising. On admission, the patient was also found to be severely hypomagnesemic and hypokalemic. The patient had these aggressively repleted. The patient's potassium and magnesium are improved on the day of discharge, however, I have asked that she get a followup BMP and magnesium level on 09/26/16 to ensure her potassium and magnesium are still in good range. The patient was already well connected to help the [facility] and [facility] referred social workers. The patient will continue to follow with them as well as her primary care provider. At this point, the patient is considering staying sober for a period of time. She does state that she has a tremendous amount of stress going on at home right now with her daughter being ill. FOLLOWUP CONCERNS: The patient is being discharged home today, 09/23/16. ACTIVITY LEVEL: As tolerated. DIET: Regular. CONDITION ON DISCHARGE: Stable. The patient should follow up with primary care provider, Dorcas Chan NP in four to seven days. TIME SPENT: Thirty-five minutes were spent discharging this patient. [id number]/CPS #: [id number] [place]
== END 2016-09-23 18:15 | disposition home or self-care (01) | DRG 158 ==
LOC: ED 10:50 → ICU 13:32 → MED 09-22 12:32
PROVIDERS: ADMIT Hospitalist; ATTEND Hospitalist
DX: K14.8 Other diseases of tongue (principal); R64 Cachexia; J44.9 Chronic obstructive pulmonary disease, unspecified; E87.1 Hypo-osmolality and hyponatremia; E83.42 Hypomagnesemia; D69.6 Thrombocytopenia, unspecified; I10 Essential (primary) hypertension; K58.9 Irritable bowel syndrome, unspecified; F41.9 Anxiety disorder, unspecified; F32.9 Major depressive disorder, single episode, unspecified; F43.10 Post-traumatic stress disorder, unspecified; F17.210 Nicotine dependence, cigarettes, uncomplicated; E87.6 Hypokalemia; R74.8 Abnormal levels of other serum enzymes; D64.9 Anemia, unspecified; E78.00 Pure hypercholesterolemia, unspecified; K21.9 Gastro-esophageal reflux disease without esophagitis; S01.552A Open bite of oral cavity, initial encounter; F10.20 Alcohol dependence, uncomplicated; M19.90 Unspecified osteoarthritis, unspecified site; Z98.51 Tubal ligation status; Z88.1 Allergy status to other antibiotic agents; Z88.8 Allergy status to other drugs, medicaments and biological substances; Z82.49 Family history of ischemic heart disease and other diseases of the circulatory system; Z80.0 Family history of malignant neoplasm of digestive organs; Z82.0 Family history of epilepsy and other diseases of the nervous system; Z68.24 Body mass index [BMI] 24.0-24.9, adult; Z87.440 Personal history of urinary (tract) infections; Z91.5 Personal history of self-harm
CPT/HCPCS: 36415; 80048; 80051; 80053; 80307; 80320; 81003; 81015; 82550; 83605; 83735; 83880; 84443; 84484; 85025; 85027; 85610; 86140; 87086; 87641; 93005; 94640; 94760; 99406; A9270-GY; G0480; J1200; J1644; J2060; J2930; J3480

== ENCOUNTER 2016-09-25 16:35 | Emergency (ER) | payer MEDICARE, MEDICAID ==
[2016-09-25] MEDS ORDERED: NS 0.9% 1000 ML* 2,000 ML IV ONE (17:18)
[2016-09-25 17:55] LABS: Hematocrit 36 % (35-47); Hemoglobin 12.1 g/dl (12.0-16.0); Mean Corpuscular HGB Conc 34 g/dl (31-36); Mean Corpuscular Hemoglobin 40 pg (27-31); Mean Platelet Volume 8 um3 (7.4-10.4); Red Blood Count 3.03 10^6/ul (4.0-5.4); Red Cell Distribution Width 18 % (10.5-15); White Blood Count 4.6 10^3/ul (3.5-10.8)
[2016-09-25 17:56] LABS: Comments Flag Yes
[2016-09-25 17:57] LABS: Mean Corpuscular Volume 117 fL (80-97)
[2016-09-25 18:09] LABS: Urine Bacteria Absent (Absent); Urine Bilirubin Negative (Negative); Urine Glucose Negative (Negative); Urine Nitrite Negative (Negative)
[2016-09-25 18:13] LABS: Albumin 3.3 g/dL (3.2-5.2); BUN/Creatinine Ratio 8.1 (8-20); Calcium 8.5 mg/dL (8.6-10.3); EGFR African American 225.4 (>60); EGFR Non-African American 175.3 (>60); Globulin 2.4 g/dL (2-4); Magnesium 1.6 mg/dL (1.9-2.7); Potassium 3.5 mmol/L (3.5-5.0); Total Bilirubin 0.4 mg/dL (0.2-1.0); Total Protein 5.7 g/dL (6.4-8.9)
[2016-09-25] MEDS ORDERED: Potassium Chloride LIQUID* 20 MEQ PACKET PO ONE (18:20)
[2016-09-25] MEDS ORDERED: Magnesium Oxide TAB* 400 MG PO ONE (18:21)
--- NOTE | 2016-09-25 18:52 | ED ---
Jailyn Juárez Thomas, scribed for Emigdio Ventura MD on 09/25/16 at 1746 . Complex/Multi-Sys Presentation - HPI Summary HPI Summary: The pt is a 66 y/o F referred to the ED by her PCP after abnormal lab tests that showed hyponatremia and hypomagnesemia. She was admitted to [facility] four days ago and discharged two days ago secondary to hypomagnesemia. She has a longstanding history of alcohol abuse. She did not eat breakfast and has only consumed wine today. She additionally c/o diarrhea, cough, ankle swelling. She denies abd pain, fever, chills, and seizures. PMHx: HTN, HLD, PTSD, depression, alcohol abuse, anxiety, seizures, alcoholism, COPD. PSHx: T&A, 2 C-sections. SHx : heavy smoking, alcohol abuse. FHx: ETOH abuse. She had an alcohol withdrawal seizure last week. - History Of Current Complaint Chief Complaint: EDGeneral Time Seen by Provider: 09/25/16 17:15 Hx Obtained From: Patient Onset/Duration: Sudden Onset - referred from PCP after tests show low magnesium , sodium, Still Present Timing: Constant Aggravating Factor(s): none Alleviating Factor(s): none Associated Signs And Symptoms: Positive: Cough, Diarrhea, Other - NEG: chills, seizures. Negative: Abdominal Pain, Fever - Allergies/Home Medications Allergies/Adverse Reactions: Allergies Allergy/AdvReac Type Severity Reaction Status Date / Time Doxycycline Allergy Intermediate Swelling Verified 09/15/16 12:25 Gabapentin [From Neurontin] Allergy Intermediate Swelling Verified 09/15/16 12: 25 Prednisone Allergy Intermediate Hives Verified 09/15/16 12:25 PMH/Surg Hx/FS Hx/Imm Hx Previously Healthy: No Endocrine/Hematology History: Reports: Hx Anemia Denies: Hx Anticoagulant Therapy, Hx Blood Disorders, Hx Blood Transfusions, Hx Bone Marrow Disease, Hx Diabetes, Hx Systemic Lupus Erythematosus, Hx Sickle Cell Disease, Hx Thyroid Disease, Hx Unexplained Bleeding, Other Endocrine/ Hematological Disorders Cardiovascular History: Reports: Hx Angina, Hx Hypercholesterolemia - hx of, Hx Hypertension, Other Cardiovascular Problems/Disorders - carotid endarterectomy; hx of murmur Denies: Hx Aneurysm, Hx Angioplasty, Hx Auto Implanted Cardiovert Defib, Hx Cardiac Arrest, Hx Cardiomegaly, Hx Congenital Heart Disease, Hx Congestive Heart Failure, Hx Coronary Artery Disease, Hx Deep Vein Thrombosis, Hx Embolism , Hx Hypotension, Hx Pacemaker/ICD, Hx Peripheral Vascular Disease, Hx Rheumatic Fever, Hx Syncope, Hx Valvular Heart Disease Respiratory History: Reports: Hx Chronic Bronchitis, Hx Chronic Obstructive Pulmonary Disease (COPD), Hx Pneumonia, Other Respiratory Problems/Disorders - SMOAKER Denies: Hx Asthma, Hx Cystic Fibrosis, Hx Lung Cancer, Hx Pleural Effusion, Hx Pulmonary Edema, Hx Pulmonary Embolism, Hx Seasonal Allergies, Hx Sleep Apnea GI History: Reports: Hx Gastroesophageal Reflux Disease, Hx Irritable Bowel, Hx Ulcer, Other GI Disorders - adhesions Denies: Hx Cirrhosis, Hx Crohn's Disease, Hx Diverticulosis, Hx Gall Bladder Disease, Hx Gastrointestinal Bleed, Hx Hiatal Hernia, Hx Jaundice, Hx Obstructive Bowel, Hx Ileostomy, Hx Pyloric Stenosis History: Reports: Other Problems/Disorders - hx of UTI Denies: Hx Acute Renal Failure, Hx Benign Prostatic Hyperplasia, Hx Chronic Renal Failure, Hx Dialysis, Hx Kidney Infection, Hx Kidney Stones, Hx Renal Disease Musculoskeletal History: Reports: Hx Arthritis - osteo arthritis, Hx Orthopedic Injury - broken fingers, Other Musculoskeletal History - Past injury to R hand. Denies: Hx Back Problems, Hx Bursitis, Hx Congenital Bone Abnormalities, Hx Fibromyalgia, Hx Gout, Hx Osteoporosis, Hx Scoliosis, Hx Tendonitis Sensory History: Reports: Hx Contacts or Glasses - doesn't wear them though, Hx Vision Problem, Other Sensory Impairments - floaters Denies: Hx Cataracts, Hx Eye Injury, Hx Eye Prosthesis, Hx Glaucoma, Hx Macular Degeneration, Hx Deafness, Hx Hearing Aid, Hx Hearing Problem Opthamlomology History: Reports: Hx Contacts or Glasses - doesn't wear them though, Hx Vision Problem, Other Sensory Impairments - floaters Denies: Hx Cataracts, Hx Eye Injury, Hx Eye Prosthesis, Hx Glaucoma, Hx Macular Degeneration Neurological History: Reports: Hx Headaches - JUST RECENTLY, Hx Seizures Denies: Hx Dementia, Hx Developmental Delay, Hx Migraine, Hx Spinal Cord Injury, Hx Transient Ischemic Attacks (TIA), Other Neuro Impairments/Disorders Psychiatric History: Reports: Hx Anxiety, Hx Depression, Hx Panic Disorder - PTSD, Hx Post Traumatic Stress Disorder, Hx Inpatient Treatment, Hx Community Mental Health Tx, Hx Suicide Attempt, Hx Substance Abuse - ETOH, Other Psychiatric Issues/Disorders Denies: Hx Attention Deficit Hyperactivity Disorder, Hx Eating Disorder, Hx Schizophrenia, Hx Bipolar Disorder, Hx of Violent Episodes Against Others - Surgical History Surgery Procedure, Year, and Place: TONSILECTOMY ; APPENDECTOMY; X2 ; TUBAL LIGATION; CAROTID ENDERECTOMY (NO STENTINGS) Hx Anesthesia Reactions: Yes - EATHER CAUSED VOMITING - Immunization History Date of Tetanus Vaccine: PT STATES UNSURE Date of Influenza Vaccine: NONE Infectious Disease History: No Infectious Disease History: Denies: Hx Clostridium Difficile, Hx Hepatitis, Hx Human Immunodeficiency Virus (HIV), Hx Shingles, Hx Tuberculosis, Traveled Outside the [place] in Last 30 Days - Family History Known Family History: Positive: Cardiac Disease - Father, Other - father - colon ca, h/o ETOH abuse; mom- alzheimer's dz - Social History Alcohol Use: Daily Alcohol Amount: 3+ glasses 5-6x wk Hx Substance Use: No Substance Use Type: Reports: None Substance Use Comment - Amount & Last Used: pt aware of mental & physical risks of etoh, not willing/ready to change Hx Tobacco Use: Yes Smoking Status (MU): Heavy Every Day Tobacco Smoker Type: Cigarettes Have You Smoked in the Last Year: Yes Review of Systems Positive: Other - POS: referred with high magnesium, sodium levels in blood. Negative: Fever, Chills Eyes: Negative ENT: Negative Cardiovascular: Negative Positive: Cough Positive: Diarrhea. Negative: Abdominal Pain Genitourinary: Negative Positive: Edema - ankle Skin: Negative Neurological: Negative, Other - NEG: seizures Psychological: Normal All Other Systems Reviewed And Are Negative: Yes Physical Exam - Summary Physical Exam Summary: The patient is well-nourished in no acute distress and in no acute pain. The skin is warm and dry and skin color reflects adequate perfusion. Decreased skin turgor. HEENT: The head is normocephalic and atraumatic. The pupils are equal and reactive. The conjunctivae are clear and without drainage. Nares are patent and without drainage. Mouth reveals dry mucous membranes and the throat is without erythema and exudate. The external ears are intact. The ear canals are patent and without drainage. The tympanic membranes are intact. Neck is supple with full range of motion and non-tender. There are no carotid bruits. There is no neck vein distension. Respiratory: Chest is non-tender. Lungs are clear to auscultation and breath sounds are symmetrical and equal. Cardiovascular: Heart is regular rate and rhythm. There is no murmur or rub auscultated. There is pitting edema in her feet and lower extremities. There is no peripheral edema and pulses are symmetrical and equal. Abdomen: The abdomen is soft and non-tender. There are normal bowel sounds heard in all four quadrants and there is no organomegaly palpated. Musculoskeletal: There is no back pain noted. Extremities are non-tender with full range of motion. There is good capillary refill. There is pitting edema in her feet and lower extremities. No calf tenderness is elicited. Neurological: Patient is alert and oriented to person, place and time. The patient has symmetrical motor strength in all four extremities. Cranial nerves are grossly intact. Deep tendon reflexes are symmetrical and equal in all four extremities. Psychiatric: The patient has an appropriate affect and does not exhibit any anxiety. She appears depressed Triage Information Reviewed: Yes Vital Signs On Initial Exam: Initial Vitals Temp Pulse Resp BP Pulse Ox 98.4 F 87 18 107/70 94 09/25/16 16:47 09/25/16 16:47 09/25/16 16:47 09/25/16 16:47 09/25/16 16:47 Vital Signs Reviewed: Yes Diagnostics - Vital Signs Vital Signs Temp Pulse Resp BP Pulse Ox 09/25/16 16:47 98.4 F 87 18 107/70 94 - Laboratory Lab Results: Lab Results 09/25/16 09/25/16 09/25/16 Range/Units 17:40 17:40 17:40 WBC 4.6 (3.5-10.8) 10^3/ul RBC 3.03 L (4.0-5.4) 10^6/ul Hgb 12.1 (12.0-16.0) g/dl Hct 36 (35-47) % MCV 117 H (80-97) fL MCH 40 H (27-31) pg MCHC 34 (31-36) g/dl RDW 18 H (10.5-15) % Plt Count 182 (150-450) 10^3/ul MPV 8 (7.4-10.4) um3 Neut % (Auto) 42.9 (38-83) % Lymph % (Auto) 37.8 (25-47) % [place] % (Auto) 14.8 H (1-9) % Eos % (Auto) 3.3 (0-6) % Baso % (Auto) 1.2 (0-2) % Absolute Neuts (auto) 2.0 (1.5-7.7) 10^3/ul Absolute Lymphs (auto) 1.7 (1.0-4.8) 10^3/ul Absolute Monos (auto) 0.7 (0-0.8) 10^3/ul Absolute Eos (auto) 0.2 (0-0.6) 10^3/ul Absolute Basos (auto) 0.1 (0-0.2) 10^3/ul Absolute Nucleated RBC 0 10^3/ul Nucleated RBC % 0.1 Sodium 130 L (133-145) mmol/L Potassium 3.5 (3.5-5.0) mmol/L Chloride 99 L (101-111) mmol/L Carbon Dioxide 22 (22-32) mmol/L Anion Gap 9 (2-11) mmol/L BUN 3 L (6-24) mg/dL Creatinine 0.37 L (0.51-0.95) mg/dL Est GFR ( Amer) 225.4 (>60) Est GFR (Non-Af Amer) 175.3 (>60) BUN/Creatinine Ratio 8.1 (8-20) Glucose 70 (70-100) mg/dL Lactic Acid (0.5-2.0) mmol/L Calcium 8.5 L (8.6-10.3) mg/dL Magnesium 1.6 L (1.9-2.7) mg/dL Total Bilirubin 0.40 (0.2-1.0) mg/dL AST 40 H (13-39) U/L ALT 18 (7-52) U/L Alkaline Phosphatase 58 (34-104) U/L Total Protein 5.7 L (6.4-8.9) g/dL Albumin 3.3 (3.2-5.2) g/dL Globulin 2.4 (2-4) g/dL Albumin/Globulin Ratio 1.4 (1-3) Urine Color Straw Urine Appearance Clear Urine pH 6.0 (5-9) Ur Specific [place] 1.003 L (1.010-1.030) Urine Protein Negative (Negative) Urine Ketones Negative (Negative) Urine Blood Negative (Negative) Urine Nitrate Negative (Negative) Urine Bilirubin Negative (Negative) Urine Urobilinogen Negative (Negative) Ur Leukocyte Esterase Trace H (Negative) Urine WBC (Auto) Trace(0-5/hpf) (Absent) Urine RBC (Auto) Trace(0-2/hpf) (Absent) Ur Squamous Epith Cells Present H (Absent) Urine Bacteria Absent (Absent) Urine Glucose Negative (Negative) Serum Alcohol 244 H (<10) mg/dL 09/25/16 Range/Units 17:40 WBC (3.5-10.8) 10^3/ul RBC (4.0-5.4) 10^6/ul Hgb (12.0-16.0) g/dl Hct (35-47) % MCV (80-97) fL MCH (27-31) pg MCHC (31-36) g/dl RDW (10.5-15) % Plt Count (150-450) 10^3/ul MPV (7.4-10.4) um3 Neut % (Auto) (38-83) % Lymph % (Auto) (25-47) % [place] % (Auto) (1-9) % Eos % (Auto) (0-6) % Baso % (Auto) (0-2) % Absolute Neuts (auto) (1.5-7.7) 10^3/ul Absolute Lymphs (auto) (1.0-4.8) 10^3/ul Absolute Monos (auto) (0-0.8) 10^3/ul Absolute Eos (auto) (0-0.6) 10^3/ul Absolute Basos (auto) (0-0.2) 10^3/ul Absolute Nucleated RBC 10^3/ul Nucleated RBC % Sodium (133-145) mmol/L Potassium (3.5-5.0) mmol/L Chloride (101-111) mmol/L Carbon Dioxide (22-32) mmol/L Anion Gap (2-11) mmol/L BUN (6-24) mg/dL Creatinine (0.51-0.95) mg/dL Est GFR ( Amer) (>60) Est GFR (Non-Af Amer) (>60) BUN/Creatinine Ratio (8-20) Glucose (70-100) mg/dL Lactic Acid 1.9 (0.5-2.0) mmol/L Calcium (8.6-10.3) mg/dL Magnesium (1.9-2.7) mg/dL Total Bilirubin (0.2-1.0) mg/dL AST (13-39) U/L ALT (7-52) U/L Alkaline Phosphatase (34-104) U/L Total Protein (6.4-8.9) g/dL Albumin (3.2-5.2) g/dL Globulin (2-4) g/dL Albumin/Globulin Ratio (1-3) Urine Color Urine Appearance Urine pH (5-9) Ur Specific [place] (1.010-1.030) Urine Protein (Negative) Urine Ketones (Negative) Urine Blood (Negative) Urine Nitrate (Negative) Urine Bilirubin (Negative) Urine Urobilinogen (Negative) Ur Leukocyte Esterase (Negative) Urine WBC (Auto) (Absent) Urine RBC (Auto) (Absent) Ur Squamous Epith Cells (Absent) Urine Bacteria (Absent) Urine Glucose (Negative) Serum Alcohol (<10) mg/dL Result Diagrams: 09/25/16 17:40 09/25/16 17:40 Lab Statement: Any lab studies that have been ordered have been reviewed, and results considered in the medical decision making process. - EKG 18:01 Cardiac Rate: NL - 82 bpm EKG Interpretation: No STEMI, poor R wave progression, Nml axis, Sinus rhythm. Complex Multi-Symp Course/Dx Assessment/Plan: The pt is a 66 y/o F referred to the ED by her PCP after abnormal lab tests that showed hyponatremia and hypomagnesemia. She was admitted to [facility] four days ago and discharged two days ago secondary to hypomagnesemia. She has a longstanding history of alcohol abuse. She did not eat breakfast and has only consumed wine today. She additionally c/o diarrhea, cough, ankle swelling. She denies abd pain, fever, chills, and seizures. PMHx: HTN, HLD, PTSD, depression, alcohol abuse, anxiety, seizures, alcoholism, COPD. PSHx: T&A, 2 C-sections. SHx: heavy smoking, alcohol abuse. FHx: ETOH abuse. She had an alcohol withdrawal seizure last week. Bloodwork revealed RBC 3.03, MCV 117, MCH 40, [place] % 14.8, Sodium 130, Chloride 99, BUN 3, Creatinine 0.37, Calcium 8.5, Magnesium 1.6, AST 40, total protein 5.7, trace leukocyte esterase. In the ED course she was given IV fluids, magnesium oxide, and potassium oxide. An EKG revealed 18:01, no STEMI, poor R wave progression nml axis, sinus rhythm. The patient is diagnosed with acute alcohol intoxication and hypomagnesemia. She is ready to be discharged, pending ETOH metabolism. The patient was informed that I have increased her potassium to 40 milliequivalents twice a day and magnesium oxide to twice a day from once a day. - Diagnoses Provider Diagnoses: Acute alcohol intoxication, Hypomagnesemia Discharge - Discharge Plan Condition: Stable Disposition: HOME Prescriptions: Magnesium Oxide TAB* [MagOx 400 TAB*] 400 mg PO BID #60 tab Potassium Chlor TAB* [Potassium Chlor TAB 20 MEQ*] 40 meq PO BID #60 tab.er Referrals: Dorcas Chan, OPERATOR [Primary Care Provider] - 2 Days Additional Instructions: I have increased your potassium to 40 milliequivalents twice a day and magnesium oxide to twice a day from once a day. The documentation as recorded by the Jailyn juan Thomas accurately reflects the service I personally performed and the decisions made by , Emigdio Ventura MD.
[2016-09-25 23:13] VITALS: BP 100/70
--- NOTE | 2016-09-25 23:21 | PN ---
Progress Note - Progress Note Date of Service: 09/25/16 Note: Patient was a sign out from Dr Ventura at 8:00pm. Patient was awaiting to sober up before discharge as she had a high LAURIE. Patient was updated on medication changes. Feeling much better. PE: cardaic:RRR and resp: normal lung sounds. Will be discharged home.
== END 2016-09-25 23:13 | disposition home or self-care (01) ==
LOC: ED 16:35
DX: F10.129 Alcohol abuse with intoxication, unspecified (principal); Y90.8 Blood alcohol level of 240 mg/100 ml or more; E83.42 Hypomagnesemia; R05 Cough; R19.7 Diarrhea, unspecified; R60.9 Edema, unspecified; F17.210 Nicotine dependence, cigarettes, uncomplicated
CPT/HCPCS: 36415; 80053; 80320; 81003; 81015; 83605; 83735; 85025; 87086; 93005; 99283; A9270-GY; G0480

== ENCOUNTER 2016-10-17 19:21 | Emergency (ER) | payer MEDICARE, MEDICAID ==
--- NOTE | 2016-10-17 20:47 | ED ---
Jailyn Juárez Thomas, scribed for El Jones MD on 10/17/16 at 2004 . Substance Abuse/Use - HPI Summary HPI Summary: The pt is a 66 y/o F BIB EMS who is intoxicated. When asked why she is in the hospital, she responds because I drank too much. There are no visible injuries or trauma. She reports that she may have fell at some time. The ambulance was called by her daughter, but she is alone in the examination room. PMHx: alcoholism, depression, alcohol abuse. PSHx: appendectomy. - History Of Current Complaint Chief Complaint: EDSubstanceAbuse Stated Complaint: FALL Time Seen by Provider: 10/17/16 19:38 Hx Obtained From: Patient, Family/Siding Stapler - daughter called ambulance ?: No Ingestion History: Type/Name Of Drug - ETOH Overdose Characteristics: Oral Aggravating Factor(s): Nothing Alleviating Factor(s): Nothing Associated Signs And Symptoms: Other: - NEG: any visible injuries or trauma Related Hx: Prior Drug Abuse Counseling/Admission - Allergies/Home Medications Allergies/Adverse Reactions: Allergies Allergy/AdvReac Type Severity Reaction Status Date / Time Doxycycline Allergy Intermediate Swelling Verified 09/15/16 12:25 Gabapentin [From Neurontin] Allergy Intermediate Swelling Verified 09/15/16 12: 25 Prednisone Allergy Intermediate Hives Verified 09/15/16 12:25 PMH/Surg Hx/FS Hx/Imm Hx Previously Healthy: No Endocrine/Hematology History: Reports: Hx Anemia Denies: Hx Anticoagulant Therapy, Hx Blood Disorders, Hx Blood Transfusions, Hx Bone Marrow Disease, Hx Diabetes, Hx Systemic Lupus Erythematosus, Hx Sickle Cell Disease, Hx Thyroid Disease, Hx Unexplained Bleeding, Other Endocrine/ Hematological Disorders Cardiovascular History: Reports: Hx Angina, Hx Hypercholesterolemia - hx of, Hx Hypertension, Other Cardiovascular Problems/Disorders - carotid endarterectomy; hx of murmur Denies: Hx Aneurysm, Hx Angioplasty, Hx Auto Implanted Cardiovert Defib, Hx Cardiac Arrest, Hx Cardiomegaly, Hx Congenital Heart Disease, Hx Congestive Heart Failure, Hx Coronary Artery Disease, Hx Deep Vein Thrombosis, Hx Embolism , Hx Hypotension, Hx Pacemaker/ICD, Hx Peripheral Vascular Disease, Hx Rheumatic Fever, Hx Syncope, Hx Valvular Heart Disease Respiratory History: Reports: Hx Chronic Bronchitis, Hx Chronic Obstructive Pulmonary Disease (COPD), Hx Pneumonia, Other Respiratory Problems/Disorders - SMOAKER Denies: Hx Asthma, Hx Cystic Fibrosis, Hx Lung Cancer, Hx Pleural Effusion, Hx Pulmonary Edema, Hx Pulmonary Embolism, Hx Seasonal Allergies, Hx Sleep Apnea GI History: Reports: Hx Gastroesophageal Reflux Disease, Hx Irritable Bowel, Hx Ulcer, Other GI Disorders - adhesions Denies: Hx Cirrhosis, Hx Crohn's Disease, Hx Diverticulosis, Hx Gall Bladder Disease, Hx Gastrointestinal Bleed, Hx Hiatal Hernia, Hx Jaundice, Hx Obstructive Bowel, Hx Ileostomy, Hx Pyloric Stenosis History: Reports: Other Problems/Disorders - hx of UTI Denies: Hx Acute Renal Failure, Hx Benign Prostatic Hyperplasia, Hx Chronic Renal Failure, Hx Dialysis, Hx Kidney Infection, Hx Kidney Stones, Hx Renal Disease Musculoskeletal History: Reports: Hx Arthritis - osteo arthritis, Hx Orthopedic Injury - broken fingers, Other Musculoskeletal History - Past injury to R hand. Denies: Hx Back Problems, Hx Bursitis, Hx Congenital Bone Abnormalities, Hx Fibromyalgia, Hx Gout, Hx Osteoporosis, Hx Scoliosis, Hx Tendonitis Sensory History: Reports: Hx Contacts or Glasses - doesn't wear them though, Hx Vision Problem, Other Sensory Impairments - floaters Denies: Hx Cataracts, Hx Eye Injury, Hx Eye Prosthesis, Hx Glaucoma, Hx Macular Degeneration, Hx Deafness, Hx Hearing Aid, Hx Hearing Problem Opthamlomology History: Reports: Hx Contacts or Glasses - doesn't wear them though, Hx Vision Problem, Other Sensory Impairments - floaters Denies: Hx Cataracts, Hx Eye Injury, Hx Eye Prosthesis, Hx Glaucoma, Hx Macular Degeneration Neurological History: Reports: Hx Headaches - JUST RECENTLY, Hx Seizures Denies: Hx Dementia, Hx Developmental Delay, Hx Migraine, Hx Spinal Cord Injury, Hx Transient Ischemic Attacks (TIA), Other Neuro Impairments/Disorders Psychiatric History: Reports: Hx Anxiety, Hx Depression, Hx Panic Disorder - PTSD, Hx Post Traumatic Stress Disorder, Hx Inpatient Treatment, Hx Community Mental Health Tx, Hx Suicide Attempt, Hx Substance Abuse - ETOH, Other Psychiatric Issues/Disorders Denies: Hx Attention Deficit Hyperactivity Disorder, Hx Eating Disorder, Hx Schizophrenia, Hx Bipolar Disorder, Hx of Violent Episodes Against Others - Surgical History Surgery Procedure, Year, and Place: TONSILECTOMY ; APPENDECTOMY; X2 ; TUBAL LIGATION; CAROTID ENDERECTOMY (NO STENTINGS) Hx Anesthesia Reactions: Yes - EATHER CAUSED VOMITING - Immunization History Date of Tetanus Vaccine: PT STATES UNSURE Date of Influenza Vaccine: NONE Infectious Disease History: No Infectious Disease History: Denies: Hx Clostridium Difficile, Hx Hepatitis, Hx Human Immunodeficiency Virus (HIV), Hx Shingles, Hx Tuberculosis, Traveled Outside the [place] in Last 30 Days - Family History Known Family History: Positive: Cardiac Disease - Father, Other - father - colon ca, h/o ETOH abuse; mom- alzheimer's dz - Social History Alcohol Use: Daily Alcohol Amount: 3+ glasses 5-6x wk Hx Substance Use: No Substance Use Type: Reports: None Substance Use Comment - Amount & Last Used: pt aware of mental & physical risks of etoh, not willing/ready to change Hx Tobacco Use: Yes Smoking Status (MU): Heavy Every Day Tobacco Smoker Type: Cigarettes Have You Smoked in the Last Year: Yes Review of Systems Positive: Other - POS: ETOH intoxication. Negative: Fever Negative: Other - NEG: tachypnea Negative: Other - NEG: any injuries or trauma All Other Systems Reviewed And Are Negative: Yes Physical Exam Triage Information Reviewed: Yes Vital Signs On Initial Exam: Initial Vitals Temp Pulse Resp BP Pulse Ox 98.4 F 96 20 126/71 93 10/17/16 19:43 10/17/16 19:43 10/17/16 19:43 10/17/16 19:43 10/17/16 19:43 Vital Signs Reviewed: Yes Appearance: Positive: No Pain Distress, Thin Skin: Positive: Warm Head/Face: Positive: Normal Head/Face Inspection Eyes: Positive: SIMBA ENT: Positive: Hearing grossly normal Neck: Positive: Supple Respiratory/Lung Sounds: Positive: Breath Sounds Present Cardiovascular: Positive: RRR Abdomen Description: Positive: Nontender, Soft Bowel Sounds: Positive: Present Musculoskeletal: Positive: Strength/ROM Intact Neurological: Positive: Alert, Oriented to Person Place, Time Psychiatric: Positive: Affect/Mood Appropriate Diagnostics - Vital Signs Vital Signs Temp Pulse Resp BP Pulse Ox 10/17/16 19:43 98.4 F 96 20 126/71 93 - Laboratory Lab Statement: Any lab studies that have been ordered have been reviewed, and results considered in the medical decision making process. - EKG 20:17 Cardiac Rate: NL - 91 BPM EKG Interpretation: NSR. Nml EKG. Course/Dx - Course Assessment/Plan: The pt is a 66 y/o F BIB EMS who is intoxicated. When asked why she is in the hospital, she responds because I drank too much. There are no visible injuries or trauma. She reports that she may have fell at some time. The ambulance was called by her daughter, but she is alone in the examination room. PMHx: alcoholism, depression, alcohol abuse. PSHx: appendectomy. EKG reveals NSR. Patient is diagnosed with alcohol intoxication. Patient will be discharged home with follow up by PCP. Patient is agreeable to this plan. - Diagnoses Provider Diagnoses: Alcohol intoxication Discharge - Discharge Plan Condition: Stable Disposition: HOME Patient Education Materials: Alcohol Intoxication (ED) Referrals: Dorcas Chan, CONSTITUTIONAL LAW PROFESSOR [Primary Care Provider] - 3 Days The documentation as recorded by the Jailyn juan Thomas accurately reflects the service I personally performed and the decisions made by me, El Jones MD.
[2016-10-18 05:30] VITALS: BP 102/67
== END 2016-10-18 05:45 | disposition home or self-care (01) ==
LOC: ED 19:21
DX: F10.129 Alcohol abuse with intoxication, unspecified (principal)
CPT/HCPCS: 93005; 99283

== ENCOUNTER 2016-11-03 21:22 | Observation (INO) | payer MEDICAID, MEDICARE ==
[2016-11-03] MEDS ORDERED: NS 0.9% 1000 ML* 1,000 ML IV ONE (21:26)
[2016-11-03 22:29] LABS: Comments Flag Yes; Hematocrit 46 % (35-47); Hemoglobin 15.8 g/dl (12.0-16.0); Mean Corpuscular HGB Conc 35 g/dl (31-36); Mean Corpuscular Hemoglobin 39 pg (27-31); Mean Corpuscular Volume 114 fL (80-97); Mean Platelet Volume 8 um3 (7.4-10.4); Red Blood Count 4.02 10^6/ul (4.0-5.4); Red Cell Distribution Width 16 % (10.5-15); White Blood Count 5.2 10^3/ul (3.5-10.8)
[2016-11-03 22:43] LABS: Albumin 4.2 g/dL (3.2-5.2); BUN/Creatinine Ratio 10.2 (8-20); Calcium 9.3 mg/dL (8.6-10.3); EGFR Non-African American 126.7 (>60); Magnesium 1.8 mg/dL (1.9-2.7); Potassium 3.3 mmol/L (3.5-5.0); Total Bilirubin 0.7 mg/dL (0.2-1.0); Total Protein 7.2 g/dL (6.4-8.9)
[2016-11-03] MEDS ORDERED: LORazepam INJ* 2 MG/ML 1 ML VIAL IV ONE (23:51)
[2016-11-04] MEDS ORDERED: Albuterol/Ipratropium NEB.SOL* Albuterol 2.5 MG/Ipratropium 0.5 MG 3 ML INH ONE (00:54)
[2016-11-04] MEDS ORDERED: Magnesium Sulfate 2 GM IV* 2 GM/50 ML BAG IVPB ONE (01:19)
[2016-11-04] MEDS ORDERED: Melatonin (NF) 3 MG TAB PO PRN (01:20)
[2016-11-04] MEDS ORDERED: Nicotine Inhaler* 10 MG AMP INH PRN (01:20)
[2016-11-04] MEDS ORDERED: Albuterol 2.5 MG/3 ML NEB.SOL* (0.083%) INH PRN (01:20)
[2016-11-04] MEDS ORDERED: Acetaminophen TAB* 325 MG PO PRN (01:20)
[2016-11-04] MEDS ORDERED: Thiamine IV* 100 MG/ML 2 ML VIAL IM ONE (01:43)
--- NOTE | 2016-11-04 01:44 | HP ---
H&P (Free Text) History and Physical: PCP: Carmen Chan NP Date/Time of Evaluation: 11/04/2016 0115 CC: fall HPI: Mrs Bland is a 66YO female HX alcoholism, COPD, seizures who was at home feeling sad due to her daughter recently having an accident leaving her paralyzed as well as from R rib pain from a fall ~3 weeks ago, and due to relapsing into alcoholism. She then tripped at home hitting her head, but having no loss of consciousness and called EMS. She does report increased SOB with stable cough and sputum production. She denies focal W/N/T, F/C, N/V, change in bowel/bladder, or other issues. PMedHx COPD PAOD s/p L CEA angina seizure disorder alcoholism HTN anxiety depression PTSD IBS OA Ambulatory Orders Cholecalciferol [Vitamin D3 Super Strength] 2,000 unit PO DAILY 03/27/16 Albuterol HFA INHALER* [Ventolin HFA Inhaler*] 2 puff INH Q4HR PRN #1 inh Albuterol/Ipratropium NEB.REBEKA* [Duoneb (Albuterol 2.5 MG/Ipratropium 0.5 MG)] 1 neb INH Q4H PRN #2 box 06/26/16 Folic Acid TAB* [Folvite TAB*] 1 mg PO DAILY #30 tab 06/26/16 LORazepam TAB(*) [Ativan 1 MG TAB (*)] 0.5 - 1 mg PO BID PRN #60 tab MDD 2 mg Magnesium Oxide [Magnesium] 500 mg PO DAILY #30 tab 06/26/16 Mometasone/Formoter 200/5 MDI* [Dulera 200/5 MDI*] 2 puff INH BID #1 inh Multivitamins/Minerals TAB* [Theragran/minerals TAB*] 1 tab PO DAILY #30 tab 04/13 Potassium Chlor TAB* [Potassium Chlor TAB 20 MEQ*] 20 meq PO BID #60 tab QUEtiapine TAB* [Seroquel TAB*] 50 - 100 mg PO BEDTIME #60 tab 06/26/16 Thiamine TAB* [Vitamin B-1 TAB 100 MG*] 100 mg PO DAILY #30 tab 06/26/16 Tiotropium CAP.INH* [Spiriva CAP.INH*] 1 cap.inh INH DAILY #1 inh 06/26/16 Magnesium Oxide TAB* [MagOx 400 TAB*] 400 mg PO BID #60 tab 09/25/16 Potassium Chlor TAB* [Potassium Chlor TAB 20 MEQ*] 40 meq PO BID #60 tab.er 03/13 Allergies Gabapentin [From Neurontin] Allergy (Intermediate, Verified 09/15/16 12:25) Swelling Prednisone Allergy (Intermediate, Verified 09/15/16 12:25) Hives Doxycycline Allergy (Mild, Verified 11/04/16 01:22) Swelling PSurgHx L carotid endarterectomy tonsillectomy appendectomy sectio x2 SocHx: 1-2PPD cigarettes, currently drinking primarily beer daily, denies recreational drugs; lives alone; full code status FamHx: positive for dementia, HTN, CAD ROS: as above, otherwise reviewed and all were negative Constitutional: NAD, normally developed, well-nourished chronically ill appearing white female vitals: Vital Signs Temp 36.6 C 11/03/16 21:47 Pulse 78 11/04/16 01:07 Resp 16 11/04/16 01:13 BP 129/75 11/03/16 23:32 Pulse Ox 100 11/04/16 01:07 Intake & Output 11/03/16 11/03/16 11/04/16 11:59 23:59 11:59 Intake Total 1000 Balance 1000 Weight 54.431 kg Intake: IV Fluids 1000 HEENM: atraumatic; sclera/conjunctiva: non-icteric/clear; hearing: clinically intact; oropharynx: clear, mucosa moist Neck: soft tissue: non-tender; thyroid: normal Pulmonary: prominent upper airway rhonchi, fair aeration, exhales through pursed lips CV: RR/RR, normal S1S2, no carotid bruit, no jugular venous distention, 2+ B DP/ PT, no edema Abdominal: soft, non-distended, non-tender, no rebound/guarding/rigidity, normoactive bowel sounds, no hepatosplenomegaly or masses, no costovertebral angle tenderness Musculoskeletal: general: grossly intact, no palpable tenderness Integumental: normal appearance and texture of exposed skin Psychiatric orientation: AA&O to PPS affect: calm mood: cooperative eye contact: poor content: unreliable, speech slurred responses: slowed insight: poor Testing: Lab Results 11/03/16 11/03/16 11/03/16 Range/Units 22:20 22:20 22:20 WBC 5.2 (3.5-10.8) 10^3/ul RBC 4.02 (4.0-5.4) 10^6/ul Hgb 15.8 (12.0-16.0) g/dl Hct 46 (35-47) % MCV 114 H (80-97) fL MCH 39 H (27-31) pg MCHC 35 (31-36) g/dl RDW 16 H (10.5-15) % Plt Count 206 (150-450) 10^3/ul MPV 8 (7.4-10.4) um3 Neut % (Auto) 65.5 (38-83) % Lymph % (Auto) 23.9 L (25-47) % Reeves % (Auto) 6.9 (1-9) % Eos % (Auto) 1.4 (0-6) % Baso % (Auto) 2.3 H (0-2) % Absolute Neuts (auto) 3.4 (1.5-7.7) 10^3/ul Absolute Lymphs (auto) 1.2 (1.0-4.8) 10^3/ul Absolute Monos (auto) 0.4 (0-0.8) 10^3/ul Absolute Eos (auto) 0.1 (0-0.6) 10^3/ul Absolute Basos (auto) 0.1 (0-0.2) 10^3/ul Absolute Nucleated RBC 0 10^3/ul Nucleated RBC % 0 INR (Anticoag Therapy) (0.89-1.11) Sodium 130 L (133-145) mmol/L Potassium 3.3 L (3.5-5.0) mmol/L Chloride 94 L (101-111) mmol/L Carbon Dioxide 28 (22-32) mmol/L Anion Gap 8 (2-11) mmol/L BUN 5 L (6-24) mg/dL Creatinine 0.49 L (0.51-0.95) mg/dL Est GFR ( Amer) 163.0 (>60) Est GFR (Non-Af Amer) 126.7 (>60) BUN/Creatinine Ratio 10.2 (8-20) Glucose 90 (70-100) mg/dL Lactic Acid 1.5 (0.5-2.0) mmol/L Calcium 9.3 (8.6-10.3) mg/dL Magnesium 1.8 L (1.9-2.7) mg/dL Total Bilirubin 0.70 (0.2-1.0) mg/dL AST 35 (13-39) U/L ALT 14 (7-52) U/L Alkaline Phosphatase 89 (34-104) U/L Total Creatine Kinase 30 (10-223) U/L Troponin I 0.00 (<0.04) ng/mL B-Natriuretic Peptide ( - 100) pg/mL Total Protein 7.2 (6.4-8.9) g/dL Albumin 4.2 (3.2-5.2) g/dL Globulin 3.0 (2-4) g/dL Albumin/Globulin Ratio 1.4 (1-3) Serum Alcohol 344 H (<10) mg/dL 11/03/16 11/03/16 Range/Units 22:20 22:20 WBC (3.5-10.8) 10^3/ul RBC (4.0-5.4) 10^6/ul Hgb (12.0-16.0) g/dl Hct (35-47) % MCV (80-97) fL MCH (27-31) pg MCHC (31-36) g/dl RDW (10.5-15) % Plt Count (150-450) 10^3/ul MPV (7.4-10.4) um3 Neut % (Auto) (38-83) % Lymph % (Auto) (25-47) % [place]eves % (Auto) (1-9) % Eos % (Auto) (0-6) % Baso % (Auto) (0-2) % Absolute Neuts (auto) (1.5-7.7) 10^3/ul Absolute Lymphs (auto) (1.0-4.8) 10^3/ul Absolute Monos (auto) (0-0.8) 10^3/ul Absolute Eos (auto) (0-0.6) 10^3/ul Absolute Basos (auto) (0-0.2) 10^3/ul Absolute Nucleated RBC 10^3/ul Nucleated RBC % INR (Anticoag Therapy) 1.02 (0.89-1.11) Sodium (133-145) mmol/L Potassium (3.5-5.0) mmol/L Chloride (101-111) mmol/L Carbon Dioxide (22-32) mmol/L Anion Gap (2-11) mmol/L BUN (6-24) mg/dL Creatinine (0.51-0.95) mg/dL Est GFR ( Amer) (>60) Est GFR (Non-Af Amer) (>60) BUN/Creatinine Ratio (8-20) Glucose (70-100) mg/dL Lactic Acid (0.5-2.0) mmol/L Calcium (8.6-10.3) mg/dL Magnesium (1.9-2.7) mg/dL Total Bilirubin (0.2-1.0) mg/dL AST (13-39) U/L ALT (7-52) U/L Alkaline Phosphatase (34-104) U/L Total Creatine Kinase (10-223) U/L Troponin I (<0.04) ng/mL B-Natriuretic Peptide 86 ( - 100) pg/mL Total Protein (6.4-8.9) g/dL Albumin (3.2-5.2) g/dL Globulin (2-4) g/dL Albumin/Globulin Ratio (1-3) Serum Alcohol (<10) mg/dL CXR, personally reviewed: no acute finding CT brain WO, personally reviewed: IMRESSION: No evidence of acute pathology CT C-spine WO: IMPRESSION: No fracture Impression: 66F presenting with acute intoxication and increased SOB, not felt to be in acute COPD exacerbation DIAGNOSIS & PLAN Primary SOB : HX COPD, not currently in exacerbation : given rhonchi, pursed expiration, & known frail COPD status, decision is to monitor overnight : albuterol nebs : mometasone/formoterol : tiotropium : guaifenesin : supplemental oxygen : supportive care acute alcohol intoxication : HX alcoholism : social work administrator consult : [facility] protocol hypoK- & hypoMagnesemia : replace Secondary PAOD s/p L CEA : review meds once reconciled angina : review meds once reconciled seizure disorder : review meds once reconciled HTN : review meds once reconciled anxiety : review meds once reconciled depression : review meds once reconciled PTSD : review meds once reconciled IBS : review meds once reconciled OA : review meds once reconciled Admission Rational: observation for SOB, acute intoxication DVTp: heparin SQ Code Status: full HCP: daughter
[2016-11-04] MEDS: Potassium Chlor TAB* 20 MEQ TAB.ER PO SCH ×2 (01:54→06:03)
[2016-11-04] MEDS ORDERED: LORazepam INJ* 2 MG/ML 1 ML VIAL IM SCH (02:00)
--- NOTE | 2016-11-04 04:18 | ED ---
Jailyn Juárez Thomas, scribed for Gracia Stauffer MD on 11/03/16 at 2212 . HPI Chest Pain - HPI Summary HPI Summary: The pt is a 66 y/o F BIBA c/o rib pain s/p falling from a standing position yesterday. She was lying on the ground for over 24 hours and it is unclear how she was able to call an ambulance. It is difficult to get a complete and accurate history from this patient. Pt additionally c/o bloating to her abdomen (when asked why, she responds beer and when asked how much she drank she responds four) and upper back pain. She is slow to respond to questions and sometimes does not answer questions. When she does answer questions, she sometimes takes 5-10 seconds to respond and gives short statements. Per nursing staff who are familiar with this patient, this is far from her baseline. PMHx: HTN, HLD, PTSD, depression, alcohol abuse, anxiety, seizures, alcoholism, COPD. PSHx: tonsillectomy, appendectomy, (x2). SHx: smoking, heavy alcohol use, no illicit drug use. FHx: CAD (father). She reports that her daughter has recently been in a devastating motor vehicle accident. Previous two ED visits were reviewed via EMR prior to examination of the patient. Patients medication reviewed this visit. - History of Current Complaint Chief Complaint: EDChestWallPain Hx Obtained From: Patient Onset/Duration: Started Days Ago - fall yesterday, Still Present Timing: Constant Current Severity: Severe Chest Pain Location: Left Lateral, Right Lateral Chest Pain Radiates: No Aggravating Factor(s): Nothing Alleviating Factor(s): Nothing Associated Signs and Symptoms: Positive: Chest Pain - rib pain, Abdominal Pain - bloating to abdomen, Other: - POS: upper back pain, slowness to respond - Additional Pertinent History Primary Care Physician: [id number] - Allergy/Home Medications Allergies/Adverse Reactions: Allergies Allergy/AdvReac Type Severity Reaction Status Date / Time Gabapentin [From Neurontin] Allergy Intermediate Swelling Verified 09/15/16 12: 25 Prednisone Allergy Intermediate Hives Verified 09/15/16 12:25 Doxycycline Allergy Mild Swelling Verified 11/04/16 01:22 PMH/Surg Hx/FS Hx/Imm Hx Previously Healthy: No Endocrine/Hematology History: Reports: Hx Anemia Denies: Hx Anticoagulant Therapy, Hx Blood Disorders, Hx Blood Transfusions, Hx Bone Marrow Disease, Hx Diabetes, Hx Systemic Lupus Erythematosus, Hx Sickle Cell Disease, Hx Thyroid Disease, Hx Unexplained Bleeding, Other Endocrine/ Hematological Disorders Cardiovascular History: Reports: Hx Angina, Hx Hypercholesterolemia - hx of, Hx Hypertension, Other Cardiovascular Problems/Disorders - carotid endarterectomy; hx of murmur Denies: Hx Aneurysm, Hx Angioplasty, Hx Auto Implanted Cardiovert Defib, Hx Cardiac Arrest, Hx Cardiomegaly, Hx Congenital Heart Disease, Hx Congestive Heart Failure, Hx Coronary Artery Disease, Hx Deep Vein Thrombosis, Hx Embolism , Hx Hypotension, Hx Pacemaker/ICD, Hx Peripheral Vascular Disease, Hx Rheumatic Fever, Hx Syncope, Hx Valvular Heart Disease Respiratory History: Reports: Hx Chronic Bronchitis, Hx Chronic Obstructive Pulmonary Disease (COPD), Hx Pneumonia, Other Respiratory Problems/Disorders - SMOAKER Denies: Hx Asthma, Hx Cystic Fibrosis, Hx Lung Cancer, Hx Pleural Effusion, Hx Pulmonary Edema, Hx Pulmonary Embolism, Hx Seasonal Allergies, Hx Sleep Apnea GI History: Reports: Hx Gastroesophageal Reflux Disease, Hx Irritable Bowel, Hx Ulcer, Other GI Disorders - adhesions Denies: Hx Cirrhosis, Hx Crohn's Disease, Hx Diverticulosis, Hx Gall Bladder Disease, Hx Gastrointestinal Bleed, Hx Hiatal Hernia, Hx Jaundice, Hx Obstructive Bowel, Hx Ileostomy, Hx Pyloric Stenosis History: Reports: Other Problems/Disorders - hx of UTI Denies: Hx Acute Renal Failure, Hx Benign Prostatic Hyperplasia, Hx Chronic Renal Failure, Hx Dialysis, Hx Kidney Infection, Hx Kidney Stones, Hx Renal Disease Musculoskeletal History: Reports: Hx Arthritis - osteo arthritis, Hx Orthopedic Injury - broken fingers, Other Musculoskeletal History - Past injury to R hand. Denies: Hx Back Problems, Hx Bursitis, Hx Congenital Bone Abnormalities, Hx Fibromyalgia, Hx Gout, Hx Osteoporosis, Hx Scoliosis, Hx Tendonitis Sensory History: Reports: Hx Contacts or Glasses - doesn't wear them though, Hx Vision Problem, Other Sensory Impairments - floaters Denies: Hx Cataracts, Hx Eye Injury, Hx Eye Prosthesis, Hx Glaucoma, Hx Macular Degeneration, Hx Deafness, Hx Hearing Aid, Hx Hearing Problem Opthamlomology History: Reports: Hx Contacts or Glasses - doesn't wear them though, Hx Vision Problem, Other Sensory Impairments - floaters Denies: Hx Cataracts, Hx Eye Injury, Hx Eye Prosthesis, Hx Glaucoma, Hx Macular Degeneration Neurological History: Reports: Hx Headaches - JUST RECENTLY, Hx Seizures Denies: Hx Dementia, Hx Developmental Delay, Hx Migraine, Hx Spinal Cord Injury, Hx Transient Ischemic Attacks (TIA), Other Neuro Impairments/Disorders Psychiatric History: Reports: Hx Anxiety, Hx Depression, Hx Panic Disorder - PTSD, Hx Post Traumatic Stress Disorder, Hx Inpatient Treatment, Hx Community Mental Health Tx, Hx Suicide Attempt, Hx Substance Abuse - ETOH, Other Psychiatric Issues/Disorders Denies: Hx Attention Deficit Hyperactivity Disorder, Hx Eating Disorder, Hx Schizophrenia, Hx Bipolar Disorder, Hx of Violent Episodes Against Others - Surgical History Surgery Procedure, Year, and Place: TONSILECTOMY ; APPENDECTOMY; X2 ; TUBAL LIGATION; CAROTID ENDERECTOMY (NO STENTINGS) Hx Anesthesia Reactions: Yes - EATHER CAUSED VOMITING - Immunization History Date of Tetanus Vaccine: PT STATES UNSURE Date of Influenza Vaccine: NONE Infectious Disease History: No Infectious Disease History: Denies: Hx Clostridium Difficile, Hx Hepatitis, Hx Human Immunodeficiency Virus (HIV), Hx Shingles, Hx Tuberculosis, Traveled Outside the [place] in Last 30 Days - Family History Known Family History: Positive: Cardiac Disease - Father, Other - father - colon ca, h/o ETOH abuse; mom- alzheimer's dz - Social History Alcohol Use: Daily Alcohol Amount: 3+ glasses 5-6x wk Hx Substance Use: No Substance Use Type: Reports: None Substance Use Comment - Amount & Last Used: pt aware of mental & physical risks of etoh, not willing/ready to change Hx Tobacco Use: Yes Smoking Status (MU): Heavy Every Day Tobacco Smoker Type: Cigarettes Have You Smoked in the Last Year: Yes Review of Systems Positive: Other - POS: rib pain Positive: Other - POS: abdominal bloating Positive: Other - POS: upper back pain Neurological: Other - POS: she is slow to respond and answers in short statements All Other Systems Reviewed And Are Negative: Yes Physical Exam Triage Information Reviewed: Yes Vital Signs On Initial Exam: Initial Vitals BP 111/77 11/03/16 21:34 Vital Signs Reviewed: Yes Appearance: Positive: Well-Nourished, Ill-Appearing, Pain Distress Skin: Positive: Warm, Skin Color Reflects Adequate Perfusion Head/Face: Positive: Normal Head/Face Inspection Eyes: Positive: Conjunctiva Clear ENT: Positive: Normal ENT inspection Neck: Positive: Supple Respiratory/Lung Sounds: Positive: Clear to Auscultation, Breath Sounds Present , Other - No respiratory distress Cardiovascular: Positive: RRR, Pulses are Symmetrical in both Upper and Lower Extremities, Other - Brisk cap refill. Negative: Murmur Abdomen Description: Positive: Nontender, Soft Bowel Sounds: Positive: Present Musculoskeletal: Positive: Strength/ROM Intact Neurological: Positive: Sensory/Motor Intact, Alert, Oriented to Person Place, Time, Facial Symmetry, Speech Normal Psychiatric: Positive: Normal Diagnostics - Vital Signs Vital Signs Temp Pulse Resp BP Pulse Ox 11/03/16 21:47 98 F 80 18 111/77 92 11/03/16 21:35 81 23 94 11/03/16 21:34 111/77 - Laboratory Lab Results: Lab Results 11/03/16 11/03/16 11/03/16 Range/Units 22:20 22:20 22:20 WBC 5.2 (3.5-10.8) 10^3/ul RBC 4.02 (4.0-5.4) 10^6/ul Hgb 15.8 (12.0-16.0) g/dl Hct 46 (35-47) % MCV 114 H (80-97) fL MCH 39 H (27-31) pg MCHC 35 (31-36) g/dl RDW 16 H (10.5-15) % Plt Count 206 (150-450) 10^3/ul MPV 8 (7.4-10.4) um3 Neut % (Auto) 65.5 (38-83) % Lymph % (Auto) 23.9 L (25-47) % [place] % (Auto) 6.9 (1-9) % Eos % (Auto) 1.4 (0-6) % Baso % (Auto) 2.3 H (0-2) % Absolute Neuts (auto) 3.4 (1.5-7.7) 10^3/ul Absolute Lymphs (auto) 1.2 (1.0-4.8) 10^3/ul Absolute Monos (auto) 0.4 (0-0.8) 10^3/ul Absolute Eos (auto) 0.1 (0-0.6) 10^3/ul Absolute Basos (auto) 0.1 (0-0.2) 10^3/ul Absolute Nucleated RBC 0 10^3/ul Nucleated RBC % 0 INR (Anticoag Therapy) (0.89-1.11) Sodium 130 L (133-145) mmol/L Potassium 3.3 L (3.5-5.0) mmol/L Chloride 94 L (101-111) mmol/L Carbon Dioxide 28 (22-32) mmol/L Anion Gap 8 (2-11) mmol/L BUN 5 L (6-24) mg/dL Creatinine 0.49 L (0.51-0.95) mg/dL Est GFR ( Amer) 163.0 (>60) Est GFR (Non-Af Amer) 126.7 (>60) BUN/Creatinine Ratio 10.2 (8-20) Glucose 90 (70-100) mg/dL Lactic Acid 1.5 (0.5-2.0) mmol/L Calcium 9.3 (8.6-10.3) mg/dL Magnesium 1.8 L (1.9-2.7) mg/dL Total Bilirubin 0.70 (0.2-1.0) mg/dL AST 35 (13-39) U/L ALT 14 (7-52) U/L Alkaline Phosphatase 89 (34-104) U/L Total Creatine Kinase 30 (10-223) U/L Troponin I 0.00 (<0.04) ng/mL B-Natriuretic Peptide ( - 100) pg/mL Total Protein 7.2 (6.4-8.9) g/dL Albumin 4.2 (3.2-5.2) g/dL Globulin 3.0 (2-4) g/dL Albumin/Globulin Ratio 1.4 (1-3) Serum Alcohol 344 H (<10) mg/dL 11/03/16 11/03/16 Range/Units 22:20 22:20 WBC (3.5-10.8) 10^3/ul RBC (4.0-5.4) 10^6/ul Hgb (12.0-16.0) g/dl Hct (35-47) % MCV (80-97) fL MCH (27-31) pg MCHC (31-36) g/dl RDW (10.5-15) % Plt Count (150-450) 10^3/ul MPV (7.4-10.4) um3 Neut % (Auto) (38-83) % Lymph % (Auto) (25-47) % [place] % (Auto) (1-9) % Eos % (Auto) (0-6) % Baso % (Auto) (0-2) % Absolute Neuts (auto) (1.5-7.7) 10^3/ul Absolute Lymphs (auto) (1.0-4.8) 10^3/ul Absolute Monos (auto) (0-0.8) 10^3/ul Absolute Eos (auto) (0-0.6) 10^3/ul Absolute Basos (auto) (0-0.2) 10^3/ul Absolute Nucleated RBC 10^3/ul Nucleated RBC % INR (Anticoag Therapy) 1.02 (0.89-1.11) Sodium (133-145) mmol/L Potassium (3.5-5.0) mmol/L Chloride (101-111) mmol/L Carbon Dioxide (22-32) mmol/L Anion Gap (2-11) mmol/L BUN (6-24) mg/dL Creatinine (0.51-0.95) mg/dL Est GFR ( Amer) (>60) Est GFR (Non-Af Amer) (>60) BUN/Creatinine Ratio (8-20) Glucose (70-100) mg/dL Lactic Acid (0.5-2.0) mmol/L Calcium (8.6-10.3) mg/dL Magnesium (1.9-2.7) mg/dL Total Bilirubin (0.2-1.0) mg/dL AST (13-39) U/L ALT (7-52) U/L Alkaline Phosphatase (34-104) U/L Total Creatine Kinase (10-223) U/L Troponin I (<0.04) ng/mL B-Natriuretic Peptide 86 ( - 100) pg/mL Total Protein (6.4-8.9) g/dL Albumin (3.2-5.2) g/dL Globulin (2-4) g/dL Albumin/Globulin Ratio (1-3) Serum Alcohol (<10) mg/dL Result Diagrams: 11/03/16 22:20 11/03/16 22:20 Lab Statement: Any lab studies that have been ordered have been reviewed, and results considered in the medical decision making process. - Radiology CXR with Ribs Radiology Interpretation Completed By: Radiologist - pending at time of shift change - CT CT Brain CT Interpretation: No Acute Changes - CT Brain no fracture. ED Physician has reviewed this report and agrees. CT Interpretation Completed By: Radiologist CT C-Spine CT Interpretation: No Acute Changes - CT C-Spine shows no evidence of acute fracture. ED Physician has reviewed this report and agrees. CT Interpretation Completed By: Radiologist Re-Evaluation - Re-Evaluation First Eval Re-Evaluation Time: 23:00 Change: Improved Comment: She now has R-sided chest pain. Chest Pain Course/Dx - Course Assessment/Plan: The pt is a 66 y/o F BIBA c/o rib pain s/p falling from a standing position yesterday. She was lying on the ground for over 24 hours and it is unclear how she was able to call an ambulance. Pt additionally c/o bloating to her abdomen and upper back pain. She is slow to respond to questions and sometimes does not answer questions. Per nursing staff who are familiar with this patient, this is far from her baseline. In the ED course the patient was given IV fluids. Bloodwork shows Sodium 130, Potassium 3.3, Chloride 94, BUN 5, creatinine 0.49, Magnesium 1.8. UA is uncollected at time of shift change. CXR with ribs is ordered at time of shift change. CT Brain no fracture. CT C-Spine shows no evidence of acute fracture. ED Physician has reviewed this report and agrees. The patient is signed out from Dr. Stauffer to Dr. Ventura at shift change pending imaging. - Diagnoses Provider Diagnoses: Rib fracture, Acute alcohol intoxication, COPD (chronic obstructive pulmonary disease) Discharge - Discharge Plan Condition: Fair Disposition: OTHER Discharge Disposition Comment: Signed out from Dr. Stauffer to Dr. Ventura at shift change pending imaging. The documentation as recorded by the Jailyn juan Thomas accurately reflects the service I personally performed and the decisions made by , Gracia Stauffer MD.
[2016-11-04 05:17] LABS: Urine Glucose Negative (Negative)
[2016-11-04 05:18] LABS: Urine Bilirubin Negative (Negative); Urine Nitrite Negative (Negative)
[2016-11-04 05:27] LABS: Urine Bacteria Absent (Absent)
[2016-11-04 05:33] LABS: Hematocrit 42 % (35-47); Hemoglobin 14.4 g/dl (12.0-16.0)
[2016-11-04 05:34] LABS: Comments Flag Yes
[2016-11-04 06:09] LABS: BUN/Creatinine Ratio 12.2 (8-20); Blood Urea Nitrogen 5 mg/dL (6-24); CO2 Carbon Dioxide 18 mmol/L (22-32); Calcium 8.4 mg/dL (8.6-10.3); Chloride 99 mmol/L (101-111); EGFR African American 200.2 (>60); EGFR Non-African American 155.7 (>60); Glucose 90 mg/dL (70-100); Sodium 129 mmol/L (133-145)
[2016-11-04 06:10] LABS: Anion Gap 12 mmol/L (2-11)
--- NOTE | 2016-11-04 06:13 | ED ---
Kell Juárez Rebecca, scribed for Emigdio Ventura MD on 11/04/16 at 0054 . Progress - Progress Note Progress Note: Pt was signed out from Dr. Stauffer, pending disposition, awaiting XR interpretations. - Results/Orders Results/Orders: CXR, as read by ED physician, reveals: No PTX, PNA or pulmonary contusion. Rib XR, as read by ED physician, reveals: Nondisplaced rib fracture that looks to be the 6th. Re-Evaluation - Re-Evaluation First Eval Re-Evaluation Time: 23:00 Change: Improved Comment: She now has R-sided chest pain. Course/Dx - Course Course Of Treatment: Pt was signed out from Dr. Stauffer, pending disposition, awaiting XR interpretations. CXR, as read by ED physician, reveals: No PTX, PNA or pulmonary contusion. Rib XR, as read by ED physician, reveals: Nondisplaced rib fracture that looks to be the 6th. Pt will be D/C to home with Dx of alcohol intoxication, COPD and rib fracture. She understands and agrees. Discussed care of pt with Dr. Presley, who accpets pt for admission. Pt is stable and will be admitted with Dx of rib fracture, acute alcohol intoxication and COPD. She understands and agrees. - Diagnoses Provider Diagnoses: Rib fracture, Acute alcohol intoxication, COPD (chronic obstructive pulmonary disease) - Provider Notifications Discussed Care Of Patient With: Bryan Presley Time Discussed With Above Provider: 00:56 Instructed by Provider To: Other - Accepts pt for admission. The documentation as recorded by the lisaibKell arita Rebecca accurately reflects the service I personally performed and the decisions made by me, Emigdio Ventura MD.
[2016-11-04] MEDS: Albuterol 2.5 MG/3 ML NEB.SOL* (0.083%) INH SCH ×3 (07:31→19:07)
[2016-11-04] MEDS ORDERED: Mouth Piece, Nicotine* 1 EACH CARTRIDGE ONE (08:13)
--- NOTE | 2016-11-04 08:13 | RAD ---
Indication: Fall. Alcohol use. Comparison: June 20, 2016 Technique: Noncontrast CT vertex of skull through foramen magnum. Report: Moderate prominence of the cerebral sulci and cerebellar fissures reflecting atrophy. Negative for sanchez matter white matter obscuration, intra or extra-axial hemorrhage, or mass effect. Unremarkable orbital contents. No fracture or suspicious lesion of the calvarium or skull base. Negative for scalp hematoma. Clear paranasal sinuses and mastoid air spaces. IMPRESSION: 1. No traumatic brain injury or acute intracranial process evident. 2. Moderate involutional change.
--- NOTE | 2016-11-04 08:17 | RAD ---
INDICATION: Fall. Alcohol. COMPARISON: June 25, 2016 TECHNIQUE: Multidetector CT images foramen magnum to lung apices without contrast. Multiplanar reformation. REPORT: Severe calcific atherosclerotic plaque noted at the carotid bifurcations similar to the prior exam. Normal vertebral alignment accounting for exam positioning without spondylolisthesis or subluxation at any level. Negative for cervical vertebral body or posterior element fracture. Negative for paravertebral hematoma. Multilevel degenerative spondylosis and facet joint osteoarthritis. Schmorl node endplate herniations noted at the superior endplates of C6 and C7. Congenitally generous pedicles mitigate against development of acquired central canal stenosis. Negative for significant central canal or foraminal stenosis at any level. IMPRESSION: 1. No evidence for traumatic cervical spine injury. 2. Significant atherosclerotic plaque at the carotid arteries.
[2016-11-04] MEDS ORDERED: Folic Acid TAB* 1 MG PO SCH (09:00)
[2016-11-04] MEDS ORDERED: Thiamine TAB* 100 MG TAB PO SCH (09:00)
[2016-11-04] MEDS ORDERED: guaiFENesin ER TAB 600 MG PO SCH (09:00)
[2016-11-04] MEDS ORDERED: Spiriva Inhaler DEVICE* 1 EACH DEVICE INH ONE (09:00)
[2016-11-04] MEDS ORDERED: Tiotropium CAP.INH* CAP.INH/18 MCG (USE ORDER SET !) INH SCH (09:00)
[2016-11-04] MEDS ORDERED: Multivitamins/Minerals TAB PO SCH (09:00)
[2016-11-04] MEDS ORDERED: Mometasone/Formoter 200/5 MDI INH SCH (09:00)
[2016-11-04] MEDS ORDERED: Ibuprofen TAB* 600 MG PO PRN (10:21)
[2016-11-04] MEDS: Nicotine GUM* 2 MG PO PRN ×2 (11:41→15:10)
--- NOTE | 2016-11-04 14:21 | RAD ---
Indication: RIGHT rib pain post fall. Assess for rib fracture and pneumothorax. Comparison: July 10, 2016 Technique: Sitting AP and lateral chest views. 4 view RIGHT rib series. Report: Acute fractures of the RIGHT sixth and seventh ribs noted laterally. Mild subjacent subsegmental atelectasis at the mid to lower RIGHT lung. No pleural effusion or pneumothorax evident. Negative for cardiomegaly. Unremarkable central pulmonary vasculature. Accounting for RIGHT convex curve of the thoracic spine the mediastinal contours are unremarkable. Peripheral vascular calcifications. IMPRESSION: Acute fractures of the RIGHT sixth and seventh ribs noted laterally. Mild subjacent subsegmental atelectasis at the mid to lower RIGHT lung. No pleural effusion or pneumothorax evident.
[2016-11-04 15:20] LABS: Magnesium 1.8 mg/dL (1.9-2.7)
--- NOTE | 2016-11-04 17:44 | DCNOTE ---
Subjective Date of Service: 11/04/16 Interval History: patient evaluated at the bedside. She would like to go home. She denies feeling SOB, no CP. Denies detox symptoms such as diaphoresis, tremor, confusion, hallucinations. Pt has been ambulating around room and unit with steady gait. She c/o right rib pain from fx ribs 3 weeks ago but reports this is getting better. reports cough but states this is chronic - no sputum production. She continues to smoke and is not interested in quitting. Smoking cessation discussed with patient and again she is not interested. She reports she has been drinking more due to daughter recently being in a bad car accident and being paralyzed. She states she is not interested in help at this time and knows that she can go to [facility] if she feels necessary. She has aides coming into her home tomorrow, and recently had her house cleaned (by some agency?). Per special education case manager she has services at home and will have [facility] opening her this week. Due to that she is not exhibiting any detox symptoms, is ambulating around unit and wants to be discharged plan will be to DC to home. She is noted to be A+Ox 3 and have capacity to make this decision. Reports 1 hx of seizure and states it wasnt clear if it was an actual seizure Objective Active Medications: Acetaminophen (Tylenol Tab*) 650 mg PO Q6H PRN PRN Reason: FEVER/PAIN Last Admin: 11/04/16 08:21 Dose: 650 mg Albuterol (Ventolin 2.5 Mg/3 Ml Neb.Barbara*) 2.5 mg INH Q2H PRN PRN Reason: SOB/WHEEZING Albuterol (Ventolin 2.5 Mg/3 Ml Neb.Barbara*) 2.5 mg INH [id number] AWAKE HERNANDEZ Last Admin: 11/04/16 12:55 Dose: 2.5 mg Folic Acid (Folvite Tab*) 1 mg PO DAILY HERNANDEZ Last Admin: 11/04/16 08:21 Dose: 1 mg Guaifenesin (Mucinex*) 1,200 mg PO BID HERNANDEZ Last Admin: 11/04/16 08:21 Dose: 1,200 mg Ibuprofen (Motrin Tab*) 600 mg PO Q6H PRN PRN Reason: PAIN Last Admin: 11/04/16 11:41 Dose: 600 mg Lorazepam (Ativan Inj*) 0 - 6 mg IM .PER [facility] PROTOCOL HERNANDEZ PRN Reason: Protocol Melatonin (Melatonin (Nf)) 3 mg PO BEDTIME PRN; Protocol PRN Reason: Sleep Mometasone Furoate/Formoterol Fumar (Dulera 200/5 Mdi*) 2 puff INH BID [facility] Last Admin: 11/04/16 07:34 Dose: 2 puff Multivitamins/Minerals (Theragran/Minerals Tab*) 1 tab PO DAILY [facility] Last Admin: 11/04/16 08:21 Dose: 1 tab Nicotine (Nicotine Inhaler*) 10 mg INH Q2H PRN PRN Reason: CRAVING Last Admin: 11/04/16 08:21 Dose: 10 mg Nicotine Polacrilex (Nicotine Gum*) 2 mg PO Q2H PRN PRN Reason: CRAVING Last Admin: 11/04/16 15:10 Dose: 2 mg Thiamine HCl (Vitamin B-1 Tab*) 100 mg PO DAILY [facility] Last Admin: 11/04/16 08:21 Dose: 100 mg Tiotropium Blum (Spiriva Cap.Inh*) 1 cap INH DAILY [facility] Last Admin: 11/04/16 07:33 Dose: 1 cap Vital Signs 11/04/16 11/04/16 11/04/16 02:22 02:25 02:32 Temperature 98.1 F Pulse Rate 78 Respiratory 22 22 22 Rate Blood Pressure 132/72 (mmHg) O2 Sat by Pulse 99 Oximetry 11/04/16 11/04/16 11/04/16 02:35 04:00 04:18 Temperature 98.1 F 97.8 F Pulse Rate 78 80 Respiratory 22 22 16 Rate Blood Pressure 132/72 124/67 (mmHg) O2 Sat by Pulse 99 100 Oximetry 11/04/16 11/04/16 11/04/16 06:00 06:01 07:36 Temperature 98.3 F Pulse Rate 77 82 Respiratory 18 18 14 Rate Blood Pressure 148/65 (mmHg) O2 Sat by Pulse 100 98 Oximetry 11/04/16 11/04/16 11/04/16 07:50 08:00 09:40 Temperature 98.2 F 98.6 F Pulse Rate 85 88 Respiratory 21 21 21 Rate Blood Pressure 132/69 126/107 (mmHg) O2 Sat by Pulse 95 95 Oximetry 11/04/16 11/04/16 11/04/16 10:05 12:57 14:00 Temperature Pulse Rate 82 Respiratory 22 14 14 Rate Blood Pressure (mmHg) O2 Sat by Pulse 97 Oximetry 11/04/16 14:33 Temperature Pulse Rate 94 Respiratory 18 Rate Blood Pressure 153/63 (mmHg) O2 Sat by Pulse 94 Oximetry Oxygen Devices in Use Now: None Appearance: chronically ill appearing female sitting up in bed in NAD, A+O x3. normal affect, appropriate to situation. Appears slightly unkempt with dirty finger nails. Eyes: No Scleral Icterus, PERRLA Ears/Nose/Mouth/Throat: NL Teeth, Lips, Gums, Mucous Membranes Moist Neck: NL Appearance and Movements; NL JVP Respiratory: Symmetrical Chest Expansion and Respiratory Effort, - - good areation throughout - scattered course rhonchi Cardiovascular: NL Sounds; No Murmurs; No JVD, RRR, No Edema Abdominal: NL Sounds; No Tenderness; No Distention Extremities: No Edema, No Clubbing, Cyanosis Skin: No Rash or Ulcers, No Nodules or Sclerosis Neurological: Alert and Oriented x 3, NL Sensation, NL Muscle Strength and Tone Lines/Tubes/Other Access: Clean, Dry and Intact Peripheral IV Nutrition: Taking PO's Result Diagrams: 11/04/16 05:15 11/04/16 06:40 Additional Lab and Data: Lab Results 11/03/16 11/03/16 11/03/16 Range/Units 22:20 22:20 22:20 WBC 5.2 (3.5-10.8) 10^3/ul RBC 4.02 (4.0-5.4) 10^6/ul Hgb 15.8 (12.0-16.0) g/dl Hct 46 (35-47) % MCV 114 H (80-97) fL MCH 39 H (27-31) pg MCHC 35 (31-36) g/dl RDW 16 H (10.5-15) % Plt Count 206 (150-450) 10^3/ul MPV 8 (7.4-10.4) um3 Neut % (Auto) 65.5 (38-83) % Lymph % (Auto) 23.9 L (25-47) % [place] % (Auto) 6.9 (1-9) % Eos % (Auto) 1.4 (0-6) % Baso % (Auto) 2.3 H (0-2) % Absolute Neuts (auto) 3.4 (1.5-7.7) 10^3/ul Absolute Lymphs (auto) 1.2 (1.0-4.8) 10^3/ul Absolute Monos (auto) 0.4 (0-0.8) 10^3/ul Absolute Eos (auto) 0.1 (0-0.6) 10^3/ul Absolute Basos (auto) 0.1 (0-0.2) 10^3/ul Absolute Nucleated RBC 0 10^3/ul Nucleated RBC % 0 INR (Anticoag Therapy) (0.89-1.11) Sodium 130 L (133-145) mmol/L Potassium 3.3 L (3.5-5.0) mmol/L Chloride 94 L (101-111) mmol/L Carbon Dioxide 28 (22-32) mmol/L Anion Gap 8 (2-11) mmol/L BUN 5 L (6-24) mg/dL Creatinine 0.49 L (0.51-0.95) mg/dL Est GFR ( Amer) 163.0 (>60) Est GFR (Non-Af Amer) 126.7 (>60) BUN/Creatinine Ratio 10.2 (8-20) Glucose 90 (70-100) mg/dL Lactic Acid 1.5 (0.5-2.0) mmol/L Calcium 9.3 (8.6-10.3) mg/dL Magnesium 1.8 L (1.9-2.7) mg/dL Total Bilirubin 0.70 (0.2-1.0) mg/dL AST 35 (13-39) U/L ALT 14 (7-52) U/L Alkaline Phosphatase 89 (34-104) U/L Total Creatine Kinase 30 (10-223) U/L Troponin I 0.00 (<0.04) ng/mL B-Natriuretic Peptide ( - 100) pg/mL Total Protein 7.2 (6.4-8.9) g/dL Albumin 4.2 (3.2-5.2) g/dL Globulin 3.0 (2-4) g/dL Albumin/Globulin Ratio 1.4 (1-3) Serum Alcohol 344 H (<10) mg/dL 09/09/17 09/09/17 Range/Units 22:20 22:20 WBC (3.5-10.8) 10^3/ul RBC (4.0-5.4) 10^6/ul Hgb (12.0-16.0) g/dl Hct (35-47) % MCV (80-97) fL MCH (27-31) pg MCHC (31-36) g/dl RDW (10.5-15) % Plt Count (150-450) 10^3/ul MPV (7.4-10.4) um3 Neut % (Auto) (38-83) % Lymph % (Auto) (25-47) % [place] % (Auto) (1-9) % Eos % (Auto) (0-6) % Baso % (Auto) (0-2) % Absolute Neuts (auto) (1.5-7.7) 10^3/ul Absolute Lymphs (auto) (1.0-4.8) 10^3/ul Absolute Monos (auto) (0-0.8) 10^3/ul Absolute Eos (auto) (0-0.6) 10^3/ul Absolute Basos (auto) (0-0.2) 10^3/ul Absolute Nucleated RBC 10^3/ul Nucleated RBC % INR (Anticoag Therapy) 1.02 (0.89-1.11) Sodium (133-145) mmol/L Potassium (3.5-5.0) mmol/L Chloride (101-111) mmol/L Carbon Dioxide (22-32) mmol/L Anion Gap (2-11) mmol/L BUN (6-24) mg/dL Creatinine (0.51-0.95) mg/dL Est GFR ( Amer) (>60) Est GFR (Non-Af Amer) (>60) BUN/Creatinine Ratio (8-20) Glucose (70-100) mg/dL Lactic Acid (0.5-2.0) mmol/L Calcium (8.6-10.3) mg/dL Magnesium (1.9-2.7) mg/dL Total Bilirubin (0.2-1.0) mg/dL AST (13-39) U/L ALT (7-52) U/L Alkaline Phosphatase (34-104) U/L Total Creatine Kinase (10-223) U/L Troponin I (<0.04) ng/mL B-Natriuretic Peptide 86 ( - 100) pg/mL Total Protein (6.4-8.9) g/dL Albumin (3.2-5.2) g/dL Globulin (2-4) g/dL Albumin/Globulin Ratio (1-3) Serum Alcohol (<10) mg/dL Assess/Plan/Problems-Billing Assessment: 66 yo female hx of alcoholism, COPD, hx of distant seizure (once) who presented to the ED after a fall hitting her head reporting SOB with chronic cough and intermittent sputum production admitted for SOB. - Patient Problems (1) SOB (shortness of breath) Comment: resolved. reports she is at her baseline. Does not appear to be in COPD exacerbation, appears chronic (2) Rib fracture Comment: Fell 3 weeks ago and suffered right rib fracture 6th/7th ribs - no pneumo noted on xray. No SOB, no hypoxia. Patient has tenderness/pain but is able to ambulate independently. (3) Depressive disorder Comment: Denies severe depression or suicidal ideation. Continue home medications. Takes ativan prn for anxiety at home prescribed by PCP (4) Alcoholism Comment: Pt advised to completely abstain from alcohol. Referral to [facility] - pt is refusing service at this time. She now has aides 3x week and [facility] services. Reports she doesnt drink routinely. (5) Tobacco user Comment: Smoking cessation - pt not interested in quiting at this time (6) DVT prophylaxis Comment: SQ heparin (7) Full code status Status and Disposition: OBV. Stable for DC to home. Follow up closely with PCP
[2016-11-04 17:54] VITALS: BP 115/75
--- NOTE | 2016-11-05 07:36 | DS ---
CC: Dorcas Chan NP * DISCHARGE SUMMARY: DATE OF ADMISSION: 11/03/16 DATE OF DISCHARGE: 11/04/16 PROVIDER: TR Nguyen ATTENDING PHYSICIAN: Patrizia Reyes MD * (report dictated by Jessica Suarez NP). PRIMARY CARE PROVIDER: Dorcas Chan NP DISCHARGE DIAGNOSES: 1. Fall. 2. Alcohol intoxication. 3. Tobacco abuse. 4. Chronic obstructive pulmonary disease. SECONDARY DIAGNOSES: 1. Depression. 2. Anxiety. 3. Recent history of fracture of 6 and 7th right lateral ribs secondary to a fall. 4. Questionable history of seizure disorder. HISTORY OF PRESENT ILLNESS AND HOSPITAL COURSE: Please see history and physical by Dr. Presley for full admission details, and in summary, this is a 66-year-old female with a past medical history as stated above, who presented to the emergency department on 11/03/16 after she had a mechanical fall at home , tripping and hitting her head, reporting no loss of consciousness, but called the EMS and was brought to the emergency department for further evaluation. She underwent a brain CT, which showed no traumatic brain injury or acute intracranial process evident, as well as cervical spine CT showing no evidence for traumatic cervical spine injury, as well as a chest x-ray and ribs x-ray due to her reported history of recent fall 3 weeks ago with right lateral rib fractures showing acute fracture of the right 6th and 7th ribs noted laterally, some mild subsegmental atelectasis of the mid lower right lung, but no pleural effusion or pneumothorax is evident. The patient did report mild shortness of breath in the emergency department and was seen by the hospitalist service for combination of presenting with acute intoxication and reported history of increased shortness of breath. At the time of admission, she was not felt to be in acute COPD exacerbation, but given her noted rhonchi and known frail COPD status, the decision was monitor on observation overnight. On admission, the patient's serum alcohol was 344, which is not unusual reviewing the patient's past medical history. The patient has done well overnight. Today, on evaluation , she denies shortness of breath. She reports a chronic cough but she states it is her baseline. She denies sputum production. No recent fevers or chills. Reports bilateral rib pain, but states that this is improved over the past 3 weeks. She is not noted to have any detox symptoms and denies any tremors, diaphoresis, confusion, hallucinations and is asking for discharge to home this evening. She has been ambulating around the unit without any difficulty. She was seen and evaluated by Physical Therapy earlier today, but refused to work with them due to her right rib pain. However, when I evaluated the patient, the patient was able to get out of the bed by herself and was ambulating around the unit with a steady gait. She reports that she feels much better and would like to be discharged to home. She recently was set up with director of home health services service as well as mandated to have her house cleaned, which was done through an agency. The plan is to open the patient with [facility] which has been refused in the past by [facility] agency due to the uncleanliness of the patient's home environment which now has been recently cleaned. Therefore, [facility] has agreed to open the patient's nurse service. The patient appears to be stable to be discharged to home. She is noted to have some mild hyponatremia, which is her baseline, as well as some mild hypomagnesemia in which the patient reports that she takes supplementation for at home. She was given supplementation in the hospital. Her vital signs have remained stable. Her pain appears to be well controlled at this time on acetaminophen and ibuprofen. The patient reports a long-term history of tobacco abuse, she is not interested in quitting at this time. Smoking cessation was discussed with the patient at length and again she has no interest to quit. In regard to the patient's alcohol abuse, patient reports she has cut down on her drinking; however, approximately a month ago, her daughter got in a severe car accident that left her paralyzed and she was feeling depressed and started drinking some alcohol. She states she knows that she needs to cut down and has been referred to [facility] outpatient services, but refuses the services at this time stating she does not feel that she currently needs these services. She is followed closely by her primary care provider Dorcas Ardon in which she reports that she was prescribed Ativan p.r.n. approximately 20 tablets a month, states this works well for her anxiety. She denies suicidal ideation. She reports overall she felt that she was improving currently with aide services, the cleaning of her house as well as she has been referred to PT as an outpatient which is supposed to start this week. The patient is stable for discharge to home with close followup with her PCP. Repeat labs tomorrow or Saturday by [facility] with results sent to the primary. The patient was instructed to return to the emergency department with any worsening or concerning symptoms. DISCHARGE MEDICATIONS: No new medications on discharge. 1. Spiriva 1 cap inhalation daily. 2. Thiamine 100 mg p.o. daily. 3. Seroquel 50 to 100 mg p.o. at bedtime. 4. Potassium chloride 20 mEq p.o. b.i.d. 5. Multivitamin with minerals 1 tab p.o. daily. 6. Dulera 20/5 MDI 2 puffs INH b.i.d. 7. Magnesium 400 mg p.o. b.i.d. 8. Ativan 0.5 to 1 mg p.o. b.i.d. p.r.n., max daily dose 2 mg. 9. Folic acid 1 mg p.o. daily. 10. Vitamin D3 2000 units p.o. daily. 11. DuoNeb 1 neb INH q.4 hours p.r.n. 12. Albuterol HFA inhaler 2 puffs INH q.4 hours p.r.n. DISCHARGE PLAN: 1. Follow up with Dorcas Ardon NP this week. A message has been left with my office plush cutter to set this appointment up. 2. The patient will be opened with [facility] this week. Plan for CBC, BMP and magnesium on Saturday or Saturday with results to primary PCP. 3. Encourage smoking cessation as well as abstaining from alcohol. 3. The patient has been given community resources. This case as well as the patient's labs were discussed with attending physician , Dr. Reyes, who agrees with the plan of care. JESSICA SUAREZ NP [id number]/[facility] #: [id number] [place]
== END 2016-11-04 18:45 | disposition home or self-care (01) ==
LOC: ED 21:22 → MED 11-04 01:17
PROVIDERS: ADMIT Hospitalist; ATTEND Internal Medicine
DX: F10.129 Alcohol abuse with intoxication, unspecified (principal); R06.02 Shortness of breath; S22.31XA Fracture of one rib, right side, initial encounter for closed fracture; J44.9 Chronic obstructive pulmonary disease, unspecified; W19.XXXA Unspecified fall, initial encounter; Y92.9 Unspecified place or not applicable; F17.210 Nicotine dependence, cigarettes, uncomplicated; E87.6 Hypokalemia; E83.42 Hypomagnesemia; J98.11 Atelectasis; R07.9 Chest pain, unspecified; E87.1 Hypo-osmolality and hyponatremia; Z79.899 Other long term (current) drug therapy
CPT/HCPCS: 36415; 70450; 71020; 72125; 80048; 80053; 80320; 81003; 81015; 82550; 83605; 83735; 83880; 84484; 85014; 85018; 85025; 85610; 94640; 94760; 96365; 96375; 99285; A9270-GY; G0378; G0480; G8978-GP-CI; G8979-GP-CI; J2060; J3411; J3475

== ENCOUNTER 2016-12-13 19:11 | Emergency (ER) | payer MEDICARE ==
[2016-12-13] MEDS ORDERED: Lidocaine 1% INJ* 10 MG/ML 30 ML SDV ONE (20:45)
--- NOTE | 2016-12-13 21:05 | RAD ---
Indication: Fall, laceration, head injury. CT of the brain was performed without IV contrast. Comparison is made with previous exam dated November 03, 2016. There is some motion artifact at the skull base. Otherwise ventricular structures are midline. No midline shift is noted. There is central and cortical atrophy noted. There is no evidence of intracranial mass or hemorrhage. No other high or low density lesions are identified. Mastoid air cells and paranasal sinuses are grossly unremarkable. IMPRESSION: No intracranial mass or hemorrhage is noted.
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
[2016-12-14] MEDS ORDERED: Acetaminophen TAB* 325 MG PO ONE (04:16)
[2016-12-14 06:28] VITALS: BP 141/81
== END 2016-12-14 06:30 | disposition home or self-care (01) ==
LOC: ED 19:11
DX: S01.81XA Laceration without foreign body of other part of head, initial encounter (principal); F10.129 Alcohol abuse with intoxication, unspecified; S09.90XA Unspecified injury of head, initial encounter; W19.XXXA Unspecified fall, initial encounter; Y93.9 Activity, unspecified; Y92.9 Unspecified place or not applicable
CPT/HCPCS: 12001; 70450; 99283; A9270-GY; J2001

== ENCOUNTER 2017-01-07 17:09 | Emergency (ER) | payer MEDICARE, MEDICAID ==
[2017-01-07 18:28] LABS: Hematocrit 40 % (35-47); Mean Corpuscular HGB Conc 35 g/dl (31-36); Mean Corpuscular Hemoglobin 39 pg (27-31); Mean Platelet Volume 9 um3 (7.4-10.4); Red Blood Count 3.62 10^6/ul (4.0-5.4); Red Cell Distribution Width 16 % (10.5-15); White Blood Count 6.4 10^3/ul (3.5-10.8)
[2017-01-07 18:29] LABS: Comments Flag Yes; Mean Corpuscular Volume 112 fL (80-97)
[2017-01-07 18:40] LABS: BUN/Creatinine Ratio 6.5 (8-20); Calcium 9.4 mg/dL (8.6-10.3); EGFR African American 175.3 (>60); EGFR Non-African American 136.3 (>60); Total Bilirubin 1.1 mg/dL (0.2-1.0); Total Protein 6.9 g/dL (6.4-8.9)
[2017-01-07 18:41] LABS: Troponin I 0.01 ng/mL (<0.04)
[2017-01-07 19:30] LABS: Albumin 3.4 g/dL (3.2-5.2); Globulin 3.5 g/dL (2-4)
[2017-01-07] MEDS ORDERED: NS 0.9% 1000 ML* 1,000 ML IV ONE (19:52)
[2017-01-07] MEDS ORDERED: KCL 10 MEQ/50 ML IVPREMIX* 10 MEQ/50 ML BAG IV SCH (20:00)
[2017-01-07] MEDS ORDERED: Potassium Chloride LIQUID* 20 MEQ PACKET PO ONE (20:38)
[2017-01-07] MEDS ORDERED: LORazepam TAB(*) 1 MG PO ONE (20:39)
[2017-01-07] MEDS ORDERED: NS 0.9% 1000 ML* 2,000 ML IV ONE (20:41)
--- NOTE | 2017-01-07 20:51 | RAD ---
Indication: Pain. Failure to thrive. Comparison: June 25, 2016 Technique: Internal rotation AP, external rotation Grashey, scapular Y, axillary views LEFT shoulder Report: Normal acromioclavicular and glenohumeral joint alignment. Moderate osteophytosis, subchondral sclerosis, and cystic change at the acromioclavicular joint. Minimal osteophytosis at the glenohumeral joint. Mild glenohumeral joint space narrowing. Negative for fracture. Reactive change at the greater tuberosity likely reflects chronic rotator cuff pathology. Bone density appears decreased throughout. Negative for stigmata of calcific tendinopathy. Peripheral vascular calcifications at the axilla. Unremarkable soft tissue contours. IMPRESSION: Moderate acromioclavicular and mild glenohumeral joint osteoarthritis. Reactive change at the greater tuberosity likely reflects chronic rotator cuff pathology.
--- NOTE | 2017-01-07 20:53 | RAD ---
Indication: Chest pain. Failure to thrive. Comparison: November 04, 2016 Technique: PA and lateral chest views. Report: Elevated lung volumes and both diffuse mild prominence of the interstitial markings and patchy rarefaction of the mid to upper lung zone interstitial markings. No alveolar infiltrate, focal pulmonary lesion, pleural effusion, pneumothorax. The heart, pulmonary vasculature, and mediastinal contours are unremarkable accounting for leftward rotation. RIGHT fourth, fifth, sixth, seventh, and eighth rib fractures with suggestion of callus formation indicating healing response. IMPRESSION: Stigmata of obstructive lung disease. No acute pulmonary or cardiac process evident. Healing response at multiple subacute RIGHT posterolateral rib fractures.
[2017-01-07] MEDS ORDERED: Nicotine GUM* 2 MG PO PRN (21:37)
[2017-01-07] MEDS ORDERED: Nicotine GUM* 2 MG ONE (21:40)
--- NOTE | 2017-01-07 22:03 | ED ---
Oscar Juárez Nilda, scribed for Forrest Phillips MD on 01/07/17 at 1952 . Substance Abuse/Use - HPI Summary HPI Summary: This patient is a 66 year old F BIBA to [facility] with a chief complaint of FTT and ETOH since earlier today, per triage note. Patient reports LUE pain. LVL 5 CAVEAT: HPI IS LIMITED DUE TO ETOH INTOXICATION. - History Of Current Complaint Chief Complaint: EDGeneral Stated Complaint: FAILURE TO THRIVE Time Seen by Provider: 01/07/17 19:44 Hx Obtained From: Patient, Medical Records Onset/Duration of Drug/ETOH Abuse: Hours Character: Other - grossly intoxicated ETOH - Allergies/Home Medications Allergies/Adverse Reactions: Allergies Allergy/AdvReac Type Severity Reaction Status Date / Time Gabapentin [From Neurontin] Allergy Intermediate Swelling Verified 09/15/16 12: 25 Prednisone Allergy Intermediate Hives Verified 09/15/16 12:25 Doxycycline Allergy Mild Swelling Verified 11/04/16 01:22 PMH/Surg Hx/FS Hx/Imm Hx Endocrine/Hematology History: Reports: Hx Anemia Denies: Hx Anticoagulant Therapy, Hx Blood Disorders, Hx Blood Transfusions, Hx Bone Marrow Disease, Hx Diabetes, Hx Systemic Lupus Erythematosus, Hx Sickle Cell Disease, Hx Thyroid Disease, Hx Unexplained Bleeding, Other Endocrine/ Hematological Disorders Cardiovascular History: Reports: Hx Angina, Hx Hypercholesterolemia, Hx Hypertension, Other Cardiovascular Problems/Disorders - carotid endarterectomy; hx of murmur Denies: Hx Aneurysm, Hx Angioplasty, Hx Auto Implanted Cardiovert Defib, Hx Cardiac Arrest, Hx Cardiomegaly, Hx Congenital Heart Disease, Hx Congestive Heart Failure, Hx Coronary Artery Disease, Hx Deep Vein Thrombosis, Hx Embolism , Hx Hypotension, Hx Pacemaker/ICD, Hx Peripheral Vascular Disease, Hx Rheumatic Fever, Hx Syncope, Hx Valvular Heart Disease Respiratory History: Reports: Hx Chronic Bronchitis, Hx Chronic Obstructive Pulmonary Disease (COPD), Hx Pneumonia, Other Respiratory Problems/Disorders - SMOKER Denies: Hx Asthma, Hx Cystic Fibrosis, Hx Lung Cancer, Hx Pleural Effusion, Hx Pulmonary Edema, Hx Pulmonary Embolism, Hx Seasonal Allergies, Hx Sleep Apnea GI History: Reports: Hx Gastroesophageal Reflux Disease, Hx Irritable Bowel, Hx Ulcer, Other GI Disorders - adhesions Denies: Hx Cirrhosis, Hx Crohn's Disease, Hx Diverticulosis, Hx Gall Bladder Disease, Hx Gastrointestinal Bleed, Hx Hiatal Hernia, Hx Jaundice, Hx Obstructive Bowel, Hx Ileostomy, Hx Pyloric Stenosis History: Reports: Other Problems/Disorders - hx of UTI Denies: Hx Acute Renal Failure, Hx Benign Prostatic Hyperplasia, Hx Chronic Renal Failure, Hx Dialysis, Hx Kidney Infection, Hx Kidney Stones, Hx Renal Disease Musculoskeletal History: Reports: Hx Arthritis - osteo arthritis, Hx Orthopedic Injury - broken fingers, Other Musculoskeletal History - Past injury to R hand. Denies: Hx Back Problems, Hx Bursitis, Hx Congenital Bone Abnormalities, Hx Fibromyalgia, Hx Gout, Hx Osteoporosis, Hx Scoliosis, Hx Tendonitis Sensory History: Reports: Hx Contacts or Glasses - doesn't wear them though, Hx Vision Problem, Other Sensory Impairments - floaters Denies: Hx Cataracts, Hx Eye Injury, Hx Eye Prosthesis, Hx Glaucoma, Hx Macular Degeneration, Hx Deafness, Hx Hearing Aid, Hx Hearing Problem Opthamlomology History: Reports: Hx Contacts or Glasses - doesn't wear them though, Hx Vision Problem, Other Sensory Impairments - floaters Denies: Hx Cataracts, Hx Eye Injury, Hx Eye Prosthesis, Hx Glaucoma, Hx Macular Degeneration Neurological History: Reports: Hx Headaches, Hx Seizures Denies: Hx Dementia, Hx Developmental Delay, Hx Migraine, Hx Spinal Cord Injury, Hx Transient Ischemic Attacks (TIA), Other Neuro Impairments/Disorders Psychiatric History: Reports: Hx Anxiety, Hx Depression, Hx Panic Disorder - PTSD, Hx Post Traumatic Stress Disorder, Hx Inpatient Treatment, Hx Community Mental Health Tx, Hx Suicide Attempt, Hx Substance Abuse - ETOH, Other Psychiatric Issues/Disorders Denies: Hx Attention Deficit Hyperactivity Disorder, Hx Eating Disorder, Hx Schizophrenia, Hx Bipolar Disorder, Hx of Violent Episodes Against Others - Surgical History Surgery Procedure, Year, and Place: TONSILECTOMY ; APPENDECTOMY; X2 ; TUBAL LIGATION; CAROTID ENDERECTOMY (NO STENTINGS) Hx Anesthesia Reactions: Yes - ETHER CAUSED VOMITING - Immunization History Date of Tetanus Vaccine: PT STATES UNSURE Date of Influenza Vaccine: NONE Infectious Disease History: No Infectious Disease History: Denies: Hx Clostridium Difficile, Hx Hepatitis, Hx Human Immunodeficiency Virus (HIV), Hx Shingles, Hx Tuberculosis, Traveled Outside the [place] in Last 30 Days - Family History Known Family History: Positive: Cardiac Disease - Father, Other - father - colon ca, h/o ETOH abuse; mom- alzheimer's dz - Social History Alcohol Use: Daily Alcohol Amount: 3+ glasses 5-6x wk Hx Substance Use: No Substance Use Type: Reports: None Substance Use Comment - Amount & Last Used: pt aware of mental & physical risks of etoh, not willing/ready to change Hx Tobacco Use: Yes Smoking Status (MU): Light Every Day Tobacco Smoker Type: Cigarettes Have You Smoked in the Last Year: Yes Review of Systems - ROS Summary Review of Systems Summary: LVL 5 CAVEAT: ROS IS LIMITED DUE TO ETOH INTOXICATION. Positive: Other - FTT, ETOH intoxication Positive: Other - LUE pain All Other Systems Reviewed And Are Negative: No Physical Exam Triage Information Reviewed: Yes Vital Signs On Initial Exam: Initial Vitals Temp Pulse Resp BP Pulse Ox 98.1 F 103 18 94/67 96 01/07/17 17:22 01/07/17 17:22 01/07/17 17:22 01/07/17 17:22 01/07/17 17:22 Vital Signs Reviewed: Yes Completion Of Physical Exam Limited Due To: Level 5 Appearance: Positive: Well-Appearing, No Pain Distress Skin: Positive: Warm Head/Face: Positive: Normal Head/Face Inspection Eyes: Positive: EOMI ENT: Positive: Normal ENT inspection Neck: Positive: Nontender Respiratory/Lung Sounds: Positive: Clear to Auscultation, Breath Sounds Present Cardiovascular: Positive: RRR. Negative: Murmur Abdomen Description: Positive: Nontender Musculoskeletal: Positive: Strength/ROM Intact, Other - tender over the left shoulder, no deformity,no bruises. Neurological: Positive: Sensory/Motor Intact, Alert, Oriented to Person Place, Time, CN Intact II-III Psychiatric: Positive: Normal - [place] Coma Scale Coma Scale Total: 15 Diagnostics - Vital Signs Vital Signs Temp Pulse Resp BP Pulse Ox 01/07/17 17:22 98.1 F 103 18 94/67 96 - Laboratory Lab Results: Lab Results 01/07/17 01/07/17 Range/Units 18:13 18:13 WBC 6.4 (3.5-10.8) 10^3/ul RBC 3.62 L (4.0-5.4) 10^6/ul Hgb 14.0 (12.0-16.0) g/dl Hct 40 (35-47) % MCV 112 H (80-97) fL MCH 39 H (27-31) pg MCHC 35 (31-36) g/dl RDW 16 H (10.5-15) % Plt Count 109 L (150-450) 10^3/ul MPV 9 (7.4-10.4) um3 Neut % (Auto) 67.7 (38-83) % Lymph % (Auto) 21.5 L (25-47) % [place] % (Auto) 9.3 H (1-9) % Eos % (Auto) 0.8 (0-6) % Baso % (Auto) 0.7 (0-2) % Absolute Neuts (auto) 4.3 (1.5-7.7) 10^3/ul Absolute Lymphs (auto) 1.4 (1.0-4.8) 10^3/ul Absolute Monos (auto) 0.6 (0-0.8) 10^3/ul Absolute Eos (auto) 0.1 (0-0.6) 10^3/ul Absolute Basos (auto) 0 (0-0.2) 10^3/ul Absolute Nucleated RBC 0.01 10^3/ul Nucleated RBC % 0.2 Sodium 127 L (133-145) mmol/L Potassium 3.0 L (3.5-5.0) mmol/L Chloride 94 L (101-111) mmol/L Carbon Dioxide 23 (22-32) mmol/L Anion Gap 10 (2-11) mmol/L BUN 3 L (6-24) mg/dL Creatinine 0.46 L (0.51-0.95) mg/dL Est GFR ( Amer) 175.3 (>60) Est GFR (Non-Af Amer) 136.3 (>60) BUN/Creatinine Ratio 6.5 L (8-20) Glucose 116 H (70-100) mg/dL Calcium 9.4 (8.6-10.3) mg/dL Total Bilirubin 1.10 H (0.2-1.0) mg/dL AST 122 H (13-39) U/L ALT 35 (7-52) U/L Alkaline Phosphatase 143 H (34-104) U/L Troponin I 0.01 (<0.04) ng/mL Total Protein 6.9 (6.4-8.9) g/dL Albumin 3.4 (3.2-5.2) g/dL Globulin 3.5 (2-4) g/dL Albumin/Globulin Ratio 1.0 (1-3) Serum Alcohol 325 H (<10) mg/dL Result Diagrams: 01/07/17 18:13 01/07/17 18:13 Lab Statement: Any lab studies that have been ordered have been reviewed, and results considered in the medical decision making process. - Radiology CXR Radiology Interpretation Completed By: Radiologist - CXR reveals stigmata of obstructive lung disease. No acute pulmonary or cardiac process evident. Healing response at multiple subacute RIGHT posterolateral rib fractures. ED Physician reviewed report and agrees. Shoulder XR Radiology Interpretation Completed By: Radiologist - Shoulder XR, per radiologist, reveals moderate acromioclavicular and mild glenohumeral joint osteoarthritis. Reactive change at the greater tuberosity likely reflects chronic rotator cuff pathology. ED physician has reviewed this radiology report and agrees. Course/Dx - Course Course Of Treatment: 66 yr old female with ETOH intoxication, and left shoulder tenderness after recurrent falls. Her K is a little Low. Sodium chronically low. Plan hydrate, replace potassium and let her sober up. CXR reveals stigmata of obstructive lung disease. No acute pulmonary or cardiac process evident. Healing response at multiple subacute RIGHT posterolateral rib fractures. Shoulder XR, per radiologist, reveals moderate acromioclavicular and mild glenohumeral joint osteoarthritis. Reactive change at the greater tuberosity likely reflects chronic rotator cuff pathology. ED physician has reviewed these radiology reports and agrees. Dx: Contustion of left shoulder and ETOH abuse - Diagnoses Provider Diagnoses: ETOH abuse, Contusion of shoulder, left Discharge - Discharge Plan Condition: Good Disposition: OTHER Discharge Disposition Comment: sign out Dr. Stein 0. Await dispo and lab reeval. Referrals: Dorcas Chan [facility]MER [Primary Care Provider] - The documentation as recorded by the Oscar juan Nilda accurately reflects the service I personally performed and the decisions made by me, Forrest Phillips MD.
[2017-01-07] MEDS ORDERED: Ibuprofen TAB* 600 MG PO ONE (23:11)
--- NOTE | 2017-01-08 02:51 | ED ---
Chris Juárez Nikita, scribed for Milind Stein MD on 01/08/17 at 0200 . Progress - Progress Note Progress Note: This patient was signed out from Dr. Phillips, pending disposition, awaiting Hip/ Pelvis XR. Hip/Pelvis XR reveals no fracture. Pt is currently sleeping. The patients condition is stable and will be discharged to home with Dx of alcohol intoxication. Course/Dx - Course Course Of Treatment: AWAKE IN ED. WISHES TO GO HOME. DENIES SI/HI. - Diagnoses Provider Diagnoses: Alcoholism The documentation as recorded by the Chris juan Nikita accurately reflects the service I personally performed and the decisions made by , Milind Stein MD.
[2017-01-08] MEDS ORDERED: Thiamine IV 100 MG, Folic Acid IV* 1 MG, Multiple Vitamin IV ADULT* 10 ML in D5NS 0.9% ... IV ONE (03:20)
[2017-01-08 03:39] LABS: Magnesium 1.4 mg/dL (1.9-2.7)
[2017-01-08 04:59] VITALS: BP 125/94
--- NOTE | 2017-01-08 07:36 | RAD ---
INDICATION: Right hip pain. COMPARISON: Comparison is made with a prior x-ray study from April 13 2014. TECHNIQUE: An AP view of the pelvis and frontal and lateral views of the right hip were obtained. FINDINGS: The bones are in normal alignment. No fracture is seen. There is moderate bilateral osteoarthritic change in the hips left greater than right. IMPRESSION: NO EVIDENCE FOR FRACTURE, IF THE PATIENT'S SYMPTOMS PERSIST RECOMMEND FOLLOW-UP IMAGING.
== END 2017-01-08 05:01 | disposition home or self-care (01) ==
LOC: ED 17:09
DX: F10.20 Alcohol dependence, uncomplicated (principal); S40.012A Contusion of left shoulder, initial encounter; Y90.8 Blood alcohol level of 240 mg/100 ml or more
CPT/HCPCS: 36415; 71020; 80053; 80320; 83735; 84484; 85025; 99283; A9270-GY; G0480; J3411

== ENCOUNTER 2017-02-02 19:25 | Inpatient (IN) | payer MEDICARE, MEDICAID ==
[2017-02-02] MEDS ORDERED: NS 0.9% 1000 ML* 1,000 ML IV ONE ×2 (19:51→23:34)
--- NOTE | 2017-02-02 21:06 | RAD ---
Indication: Chronic obstructive pulmonary disease. Weakness. Comparison: January 07, 2017 Technique: PA and lateral chest views. Report: Elevated lung volumes and both diffuse mild prominence of the interstitial markings and patchy rarefaction of the mid to upper lung zone interstitial markings. Accounting for leftward rotation with superimposed musculoskeletal structures the lungs and pleural spaces are clear. Negative for pneumothorax. The heart, pulmonary vasculature, and mediastinal contours are unremarkable. IMPRESSION: Stigmata of obstructive lung disease. No acute pulmonary or cardiac process evident.
[2017-02-02 23:12] LABS: Hematocrit 37 % (35-47); Hemoglobin 12.8 g/dl (12.0-16.0); Mean Corpuscular HGB Conc 35 g/dl (31-36); Mean Corpuscular Hemoglobin 40 pg (27-31); Mean Platelet Volume 8 um3 (7.4-10.4); Red Blood Count 3.22 10^6/ul (4.0-5.4); Red Cell Distribution Width 16 % (10.5-15); White Blood Count 6.1 10^3/ul (3.5-10.8)
[2017-02-02 23:16] LABS: Comments Flag Yes; Mean Corpuscular Volume 114 fL (80-97)
[2017-02-02 23:27] LABS: Alcohol 341 mg/dL (<10)
[2017-02-02 23:28] LABS: Blood Urea Nitrogen 4 mg/dL (6-24); CO2 Carbon Dioxide 21 mmol/L (22-32); Chloride 96 mmol/L (101-111); Glucose 58 mg/dL (70-100); Sodium 134 mmol/L (133-145)
[2017-02-02 23:29] LABS: ALT 49 U/L (7-52); AST 179 U/L (13-39); Albumin 2.7 g/dL (3.2-5.2); Alkaline Phosphatase 129 U/L (34-104); BUN/Creatinine Ratio 10.3 (8-20); C Reactive Protein < 1.00 mg/L (< 5.00); Calcium 8.1 mg/dL (8.6-10.3); EGFR African American 211.5 (>60); EGFR Non-African American 164.4 (>60); Globulin 3.2 g/dL (2-4); Total Protein 5.9 g/dL (6.4-8.9)
[2017-02-02 23:31] LABS: Anion Gap 17 mmol/L (2-11); Potassium 2.3 mmol/L (3.5-5.0); Troponin I 0.01 ng/mL (<0.04)
[2017-02-02 23:43] LABS: TSH (Thyroid Stimulating Horm) 2.44 mcIU/mL (0.34-5.60)
--- NOTE | 2017-02-02 23:59 | ED ---
Cj Juárez Jason, scribed for Matty Vo MD on 02/02/17 at 1959 . Lower Extremity - HPI Summary HPI Summary: This patient is a 67 year old F BIBA to [facility] with a chief complaint of ambulatory instability since 1 week ago. She states that she has been falling several times a week, and usually crawls back to her bed. Additionally, she includes that she is 100% unstable and cant walk from bathroom to living room without falling. The patient rates the pain 0/10 in severity. Symptoms aggravated by ambulation. Symptoms alleviated by nothing. - History of Current Complaint Stated Complaint: FAILURE TO THRIVE Time Seen by Provider: 02/02/17 19:43 Hx Obtained From: Patient Mechanism Of Injury: Fall From A Standing Position Onset of Pain: Immediate Onset/Duration: Still Present Pain Intensity: 0 Pain Scale Used: 0-10 Numeric Timing: Constant Associated Signs And Symptoms: Positive: Other - inability to ambulate without falling Aggravating Factor(s): Ambulation Alleviating Factor(s): Nothing - Allergies/Home Medications Allergies/Adverse Reactions: Allergies Allergy/AdvReac Type Severity Reaction Status Date / Time Gabapentin [From Neurontin] Allergy Intermediate Swelling Verified 09/15/16 12: 25 Prednisone Allergy Intermediate Hives Verified 09/15/16 12:25 Doxycycline Allergy Mild Swelling Verified 11/04/16 01:22 PMH/Surg Hx/FS Hx/Imm Hx Previously Healthy: No Endocrine/Hematology History: Reports: Hx Anemia Denies: Hx Anticoagulant Therapy, Hx Blood Disorders, Hx Blood Transfusions, Hx Bone Marrow Disease, Hx Diabetes, Hx Systemic Lupus Erythematosus, Hx Sickle Cell Disease, Hx Thyroid Disease, Hx Unexplained Bleeding, Other Endocrine/ Hematological Disorders Cardiovascular History: Reports: Hx Angina, Hx Hypercholesterolemia, Hx Hypertension, Other Cardiovascular Problems/Disorders - carotid endarterectomy; hx of murmur Denies: Hx Aneurysm, Hx Angioplasty, Hx Auto Implanted Cardiovert Defib, Hx Cardiac Arrest, Hx Cardiomegaly, Hx Congenital Heart Disease, Hx Congestive Heart Failure, Hx Coronary Artery Disease, Hx Deep Vein Thrombosis, Hx Embolism , Hx Hypotension, Hx Pacemaker/ICD, Hx Peripheral Vascular Disease, Hx Rheumatic Fever, Hx Syncope, Hx Valvular Heart Disease Respiratory History: Reports: Hx Chronic Bronchitis, Hx Chronic Obstructive Pulmonary Disease (COPD), Hx Pneumonia, Other Respiratory Problems/Disorders - SMOKER Denies: Hx Asthma, Hx Cystic Fibrosis, Hx Lung Cancer, Hx Pleural Effusion, Hx Pulmonary Edema, Hx Pulmonary Embolism, Hx Seasonal Allergies, Hx Sleep Apnea GI History: Reports: Hx Gastroesophageal Reflux Disease, Hx Irritable Bowel, Hx Ulcer, Other GI Disorders - adhesions Denies: Hx Cirrhosis, Hx Crohn's Disease, Hx Diverticulosis, Hx Gall Bladder Disease, Hx Gastrointestinal Bleed, Hx Hiatal Hernia, Hx Jaundice, Hx Obstructive Bowel, Hx Ileostomy, Hx Pyloric Stenosis History: Reports: Other Problems/Disorders - hx of UTI Denies: Hx Acute Renal Failure, Hx Benign Prostatic Hyperplasia, Hx Chronic Renal Failure, Hx Dialysis, Hx Kidney Infection, Hx Kidney Stones, Hx Renal Disease Musculoskeletal History: Reports: Hx Arthritis - osteo arthritis, Hx Orthopedic Injury - broken fingers, Other Musculoskeletal History - Past injury to R hand. Denies: Hx Back Problems, Hx Bursitis, Hx Congenital Bone Abnormalities, Hx Fibromyalgia, Hx Gout, Hx Osteoporosis, Hx Scoliosis, Hx Tendonitis Sensory History: Reports: Hx Contacts or Glasses - doesn't wear them though, Hx Vision Problem, Other Sensory Impairments - floaters Denies: Hx Cataracts, Hx Eye Injury, Hx Eye Prosthesis, Hx Glaucoma, Hx Macular Degeneration, Hx Deafness, Hx Hearing Aid, Hx Hearing Problem Opthamlomology History: Reports: Hx Contacts or Glasses - doesn't wear them though, Hx Vision Problem, Other Sensory Impairments - floaters Denies: Hx Cataracts, Hx Eye Injury, Hx Eye Prosthesis, Hx Glaucoma, Hx Macular Degeneration Neurological History: Reports: Hx Headaches, Hx Seizures Denies: Hx Dementia, Hx Developmental Delay, Hx Migraine, Hx Spinal Cord Injury, Hx Transient Ischemic Attacks (TIA), Other Neuro Impairments/Disorders Psychiatric History: Reports: Hx Anxiety, Hx Depression, Hx Panic Disorder - PTSD, Hx Post Traumatic Stress Disorder, Hx Inpatient Treatment, Hx Community Mental Health Tx, Hx Suicide Attempt, Hx Substance Abuse - ETOH, Other Psychiatric Issues/Disorders Denies: Hx Attention Deficit Hyperactivity Disorder, Hx Eating Disorder, Hx Schizophrenia, Hx Bipolar Disorder, Hx of Violent Episodes Against Others - Surgical History Surgery Procedure, Year, and Place: TONSILECTOMY ; APPENDECTOMY; X2 ; TUBAL LIGATION; CAROTID ENDERECTOMY (NO STENTINGS) Hx Anesthesia Reactions: Yes - ETHER CAUSED VOMITING - Immunization History Date of Tetanus Vaccine: PT STATES UNSURE Date of Influenza Vaccine: NONE Infectious Disease History: Denies: Hx Clostridium Difficile, Hx Hepatitis, Hx Human Immunodeficiency Virus (HIV), Hx Shingles, Hx Tuberculosis - Family History Known Family History: Positive: None, Cardiac Disease - Father, Other - father - colon ca, h/o ETOH abuse; mom- alzheimer's dz - Social History Occupation: Disabled Alcohol Use: Daily Alcohol Amount: 3+ glasses 5-6x wk Hx Substance Use: No Substance Use Type: Reports: None Substance Use Comment - Amount & Last Used: pt aware of mental & physical risks of etoh, not willing/ready to change Hx Tobacco Use: Yes Smoking Status (MU): Heavy Every Day Tobacco Smoker Type: Cigarettes Have You Smoked in the Last Year: Yes Review of Systems Negative: Fever Positive: Other - inability to ambulate without falling All Other Systems Reviewed And Are Negative: Yes Physical Exam - Summary Physical Exam Summary: Appearance: The patient is well-nourished in no acute distress and in no acute pain. Skin: The skin is warm and dry and skin color reflects adequate perfusion. HEENT: ~The head is normocephalic and atraumatic. The pupils are equal and reactive. The conjunctivae are clear and without drainage. ~Nares are patent and without drainage. ~Mouth reveals moist mucous membranes and the throat is without erythema and exudate. ~The external ears are intact. The ear canals are patent and without drainage. The tympanic membranes are intact. Neck: the neck is supple with full range of motion and non-tender. There are no carotid bruits. ~There is no neck vein distension. Respiratory: Chest is non-tender. Breath sounds are symmetrical and equal. Crackles in left lungs diffusely. Cardiovascular: Heart is regular rate and rhythm. ~There is no murmur or rub auscultated. ~~There is no peripheral edema and pulses are symmetrical and equal. Abdomen: The abdomen is soft and non-tender. ~There are normal bowel sounds heard in all four quadrants and there is no organomegaly palpated. Musculoskeletal: There is no back tenderness noted. ~Extremities are non-tender with full range of motion. ~There is good capillary refill. ~There is no calf tenderness elicited. Bilteral pedal edema, chronic venous stasis changes. Abrasions on anterior shins. Neurological: Patient is alert and oriented to person, place and time. ~The patient has symmetrical motor strength in all four extremities. ~Cranial nerves are grossly intact. Deep tendon reflexes are symmetrical and equal in all four extremities. Psychiatric: The patient has an appropriate affect and does not exhibit any anxiety or depression. Triage Information Reviewed: Yes Vital Signs On Initial Exam: Initial Vitals Temp Pulse Resp BP Pulse Ox 96.9 F 92 16 109/73 93 02/02/17 19:45 02/02/17 19:45 02/02/17 19:45 02/02/17 19:45 02/02/17 19:45 Vital Signs Reviewed: Yes Diagnostics - Vital Signs Vital Signs Temp Pulse Resp BP Pulse Ox 02/02/17 19:45 96.9 F 92 16 109/73 93 - Laboratory Lab Results: Lab Results 02/02/17 02/02/17 02/02/17 Range/Units 23:02 23:02 23:02 WBC 6.1 (3.5-10.8) 10^3/ul RBC 3.22 L (4.0-5.4) 10^6/ul Hgb 12.8 (12.0-16.0) g/dl Hct 37 (35-47) % MCV 114 H (80-97) fL MCH 40 H (27-31) pg MCHC 35 (31-36) g/dl RDW 16 H (10.5-15) % Plt Count 109 L (150-450) 10^3/ul MPV 8 (7.4-10.4) um3 Neut % (Auto) 63.6 (38-83) % Lymph % (Auto) 27.8 (25-47) % [place] % (Auto) 7.3 (1-9) % Eos % (Auto) 0.2 (0-6) % Baso % (Auto) 1.1 (0-2) % Absolute Neuts (auto) 3.9 (1.5-7.7) 10^3/ul Absolute Lymphs (auto) 1.7 (1.0-4.8) 10^3/ul Absolute Monos (auto) 0.4 (0-0.8) 10^3/ul Absolute Eos (auto) 0 (0-0.6) 10^3/ul Absolute Basos (auto) 0.1 (0-0.2) 10^3/ul Absolute Nucleated RBC 0.01 10^3/ul Nucleated RBC % 0.2 INR (Anticoag Therapy) 1.10 H (0.77-1.02) Sodium 134 (133-145) mmol/L Potassium 2.3 L* (3.5-5.0) mmol/L Chloride 96 L (101-111) mmol/L Carbon Dioxide 21 L (22-32) mmol/L Anion Gap 17 H (2-11) mmol/L BUN 4 L (6-24) mg/dL Creatinine 0.39 L (0.51-0.95) mg/dL Est GFR ( Amer) 211.5 (>60) Est GFR (Non-Af Amer) 164.4 (>60) BUN/Creatinine Ratio 10.3 (8-20) Glucose 58 L (70-100) mg/dL Lactic Acid (0.5-2.0) mmol/L Calcium 8.1 L (8.6-10.3) mg/dL Magnesium 1.0 L (1.9-2.7) mg/dL Total Bilirubin 1.50 H (0.2-1.0) mg/dL AST 179 H (13-39) U/L ALT 49 (7-52) U/L Alkaline Phosphatase 129 H (34-104) U/L Troponin I 0.01 (<0.04) ng/mL C-Reactive Protein < 1.00 (< 5.00) mg/L Total Protein 5.9 L (6.4-8.9) g/dL Albumin 2.7 L (3.2-5.2) g/dL Globulin 3.2 (2-4) g/dL Albumin/Globulin Ratio 0.8 L (1-3) TSH 2.44 (0.34-5.60) mcIU/mL Serum Alcohol 341 H (<10) mg/dL 02/02/17 Range/Units 23:02 WBC (3.5-10.8) 10^3/ul RBC (4.0-5.4) 10^6/ul Hgb (12.0-16.0) g/dl Hct (35-47) % MCV (80-97) fL MCH (27-31) pg MCHC (31-36) g/dl RDW (10.5-15) % Plt Count (150-450) 10^3/ul MPV (7.4-10.4) um3 Neut % (Auto) (38-83) % Lymph % (Auto) (25-47) % [place] % (Auto) (1-9) % Eos % (Auto) (0-6) % Baso % (Auto) (0-2) % Absolute Neuts (auto) (1.5-7.7) 10^3/ul Absolute Lymphs (auto) (1.0-4.8) 10^3/ul Absolute Monos (auto) (0-0.8) 10^3/ul Absolute Eos (auto) (0-0.6) 10^3/ul Absolute Basos (auto) (0-0.2) 10^3/ul Absolute Nucleated RBC 10^3/ul Nucleated RBC % INR (Anticoag Therapy) (0.77-1.02) Sodium (133-145) mmol/L Potassium (3.5-5.0) mmol/L Chloride (101-111) mmol/L Carbon Dioxide (22-32) mmol/L Anion Gap (2-11) mmol/L BUN (6-24) mg/dL Creatinine (0.51-0.95) mg/dL Est GFR ( Amer) (>60) Est GFR (Non-Af Amer) (>60) BUN/Creatinine Ratio (8-20) Glucose (70-100) mg/dL Lactic Acid 5.2 H* (0.5-2.0) mmol/L Calcium (8.6-10.3) mg/dL Magnesium (1.9-2.7) mg/dL Total Bilirubin (0.2-1.0) mg/dL AST (13-39) U/L ALT (7-52) U/L Alkaline Phosphatase (34-104) U/L Troponin I (<0.04) ng/mL C-Reactive Protein (< 5.00) mg/L Total Protein (6.4-8.9) g/dL Albumin (3.2-5.2) g/dL Globulin (2-4) g/dL Albumin/Globulin Ratio (1-3) TSH (0.34-5.60) mcIU/mL Serum Alcohol (<10) mg/dL Result Diagrams: 02/02/17 23:02 02/02/17 23:02 Lab Statement: Any lab studies that have been ordered have been reviewed, and results considered in the medical decision making process. - Radiology CXR Radiology Interpretation Completed By: Radiologist - Stigmata of obstructive lung disease. No acute pulmonary or cardiac process evident. Dr. Vo has reviewed this radiology report. - EKG 2038 Cardiac Rate: NL EKG Rhythm: Sinus Rhythm - [address] Segment: Normal Ectopy: None Lower Extremity Course/Dx - Course Course Of Treatment: Tiffany Bland presented saying she couldn't walk without falling down. She was found to be very hypokalemic and have an elevated lactate. She is being hydrated and getting replacement K+. Her serum ETOH was over 300 and she will have to sober up and have her labs rechecked. - Diagnoses Provider Diagnoses: Alcohol intoxication, Hypokalemia, Lactic acidosis Discharge - Discharge Plan Condition: Stable Disposition: OTHER Discharge Disposition Comment: Signed out to Dr. Bradford at change of shift. Referrals: Dorcas Chan, [employer] [Primary Care Provider] - The documentation as recorded by the Cj juan Jason accurately reflects the service I personally performed and the decisions made by me, Matty Vo MD.
[2017-02-03] MEDS ORDERED: Magnesium Sulfate 2 GM IV* 2 GM/50 ML BAG IVPB ONE ×2 (00:14→13:08)
[2017-02-03] MEDS: KCL 20 MEQ/100 ML IVPREMIX* 20 MEQ/100 ML BAG IV SCH ×3 (01:40→08:37)
[2017-02-03 01:41] LABS: Urine Bacteria Absent (Absent); Urine Bilirubin Negative (Negative); Urine Glucose Negative (Negative); Urine Nitrite Negative (Negative)
[2017-02-03 06:21] LABS: Albumin 2.6 g/dL (3.2-5.2); BUN/Creatinine Ratio 11.8 (8-20); Calcium 7.4 mg/dL (8.6-10.3); EGFR African American 247.7 (>60); EGFR Non-African American 192.6 (>60); Globulin 3.2 g/dL (2-4); Potassium 3.4 mmol/L (3.5-5.0); Total Bilirubin 1.7 mg/dL (0.2-1.0); Total Protein 5.8 g/dL (6.4-8.9)
[2017-02-03] MEDS ORDERED: NS 0.9% 1000 ML* 2,000 ML IV ONE (08:23)
[2017-02-03] MEDS ORDERED: Dextrose 50% Syringe 50 ML* 25 GM/50 ML SYRINGE IV PUSH ONE (08:23)
[2017-02-03] MEDS ORDERED: Ondansetron INJ* 2 MG/ML VIAL IV ONE (08:23)
[2017-02-03 10:51] LABS: ALT 50 U/L (7-52); AST 193 U/L (13-39); Albumin 2.8 g/dL (3.2-5.2); Alcohol 81 mg/dL (<10); Alkaline Phosphatase 136 U/L (34-104); Anion Gap 14 mmol/L (2-11); BUN/Creatinine Ratio 10.8 (8-20); Blood Urea Nitrogen 4 mg/dL (6-24); CO2 Carbon Dioxide 22 mmol/L (22-32); Calcium 7.5 mg/dL (8.6-10.3); Chloride 100 mmol/L (101-111); EGFR African American 224.7 (>60); EGFR Non-African American 174.7 (>60); Globulin 3.1 g/dL (2-4); Glucose 70 mg/dL (70-100); Potassium 3.7 mmol/L (3.5-5.0); Sodium 136 mmol/L (133-145); Total Protein 5.9 g/dL (6.4-8.9)
[2017-02-03] MEDS ORDERED: Ondansetron INJ* 2 MG/ML VIAL IV PRN (11:40)
[2017-02-03] MEDS ORDERED: Thiamine IV 100 MG, Folic Acid IV* 1 MG, Multiple Vitamin IV ADULT* 10 ML in D5NS 0.9% ... IV ONE (11:42)
[2017-02-03] MEDS ORDERED: Albuterol 2.5 MG/3 ML NEB.SOL* (0.083%) INH PRN (11:44)
[2017-02-03] MEDS ORDERED: LORazepam INJ* 2 MG/ML 1 ML VIAL IV PUSH SCH (12:00)
[2017-02-03] MEDS ORDERED: Albuterol/Ipratropium NEB.SOL* Albuterol 2.5 MG/Ipratropium 0.5 MG 3 ML INH SCH ×2 (12:00→15:00)
--- NOTE | 2017-02-03 12:29 | RAD ---
Indication: Abdominal distention, pain, nausea and vomiting. Possible small bowel obstruction. History of adhesions. Comparison: April 24, 2016 CT. Technique: Supine view of the abdomen. Report: Moderate length segment of dilated small bowel loops at the central abdomen and LEFT upper quadrant. Moderate stool in the descending colon without significant rectal distension. Unremarkable soft tissue contours. Pelvic phleboliths. Clear lung bases. IMPRESSION: Ileus versus small bowel obstruction.
[2017-02-03 12:41] LABS: Hematocrit 38 % (35-47); Hemoglobin 12.7 g/dl (12.0-16.0); Mean Corpuscular HGB Conc 34 g/dl (31-36); Mean Corpuscular Hemoglobin 39 pg (27-31); Red Blood Count 3.26 10^6/ul (4.0-5.4); Red Cell Distribution Width 16 % (10.5-15); White Blood Count 6.7 10^3/ul (3.5-10.8)
[2017-02-03 12:42] LABS: Erythrocyte Sed Rate 27 mm/Hr (0-40)
[2017-02-03 12:43] LABS: Comments Flag Yes
[2017-02-03 12:44] LABS: Add Diff/Slide Review? Slide Review Added; Mean Corpuscular Volume 116 fL (80-97)
[2017-02-03 12:56] LABS: C Reactive Protein < 1.00 mg/L (< 5.00); Lipase 51 U/L (11.0-82.0); Magnesium 1.2 mg/dL (1.9-2.7)
[2017-02-03] MEDS ORDERED: Iohexol 300* (CONTRAST) 10 ML SDV IV ONE (13:15)
--- NOTE | 2017-02-03 13:54 | RAD ---
Indication: Nausea and vomiting. Tremor. Alcohol withdrawal. Comparison: December 13, 2016 Technique: Noncontrast CT vertex of skull through foramen magnum. Report: Mild prominence of the cerebral sulci and cerebellar fissures reflecting volume loss. Negative for sanchez matter white matter obscuration, intra or extra-axial hemorrhage, or mass effect. Unremarkable orbital contents. No calvarial or skull base fracture or lesion evident. Clear visualized paranasal sinuses and mastoid air spaces. Negative for scalp hematoma. IMPRESSION: 1. No acute intracranial process evident. 2. Mild involutional change.
--- NOTE | 2017-02-03 14:06 | RAD ---
INDICATION: Abdominal pain, nausea, vomiting. Distention. Alcohol abuse. Post appendectomy. COMPARISON: May 21, 2016 abdominal ultrasound and April 24, 2016 CT. TECHNIQUE: Multidetector CT images were obtained from the lung bases to the ischial tuberosities with 76 mL Omnipaque 300 IV and oral contrast. Multiplanar reformation. REPORT: 3 mm low suspicion subpleural nodule at the lateral segment of the RIGHT middle lobe is unchanged. Negative for pleural or pericardial effusions. Negative for cardiomegaly. The liver measures 18 cm cephalocaudal within normal limits. Severe heterogeneous decreased density of the liver consistent with hepatosteatosis. No focal hepatic lesions evident. Distended gallbladder without additional CT finding. Negative for biliary dilatation. Mildly atrophic pancreas without suspicious finding. 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 Negative for splenomegaly. Patent splenic, superior mesenteric, and portal veins. The portal vein measures 1.3 cm diameter. Small hiatal hernia without additional abnormality of the upper GI. Unremarkable small bowel. Decompressed colon with moderate diverticulosis primarily at the sigmoid colon without findings of diverticulitis. Diffuse moderate ascites. Negative for free air or hernias. Normal adrenal glands. Unremarkable kidneys with symmetric nephrograms and pyelograms. Unremarkable nondilated ureters, distended urinary bladder, uterus, and adnexal regions. Negative for lymphadenopathy. Atherosclerotic plaque of normal diameter abdominal aorta and iliac arteries. Physiologic distention of the IVC. Multiple bilateral posterior inferior rib fractures with various degrees of healing response. Fractures at the RIGHT eighth and ninth ribs posteriorly appear acute or subacute. Old LEFT L2 and L3 transverse process fractures. Negative for lumbar sacral spine vertebral body fracture. Moderate bilateral hip joint osteoarthritis. IMPRESSION: 1. Hepatosteatosis. Correlate for potential steatohepatitis. Patent normal sized portal vein. Negative for splenomegaly or visualized varices. 2. Diffuse moderate ascites. 3. Moderate colonic diverticulosis without findings of diverticulitis. 4. Multiple bilateral posterior inferior rib fractures with various degrees of healing response.
--- NOTE | 2017-02-03 14:12 | RAD ---
INDICATION: Fall. Alcohol abuse. COMPARISON: No relevant prior exams available on the [facility] PACS for comparison. TECHNIQUE: Multidetector CT images foramen magnum to lung apices without contrast. Multiplanar reformation. REPORT: Motion artifact mildly degrades image quality. No vertebral body or posterior element fracture evident. Negative for facet subluxation. Negative for paravertebral hematoma. Multilevel degenerative spondylosis and facet joint osteoarthritis. Congenital generous pedicles lengths mitigating against acquired spinal stenosis. Disc space narrowing is moderately severe at C5-C6 and C6-C7. Schmorl node endplate herniations at the superior endplates of both C5 and C6. No significant central canal or foraminal stenosis evident at any level. IMPRESSION: No CT evidence for traumatic cervical spine injury.
[2017-02-03] MEDS: LORazepam INJ* 2 MG/ML 1 ML VIAL IV SCH ×2 (15:12→22:15)
[2017-02-03] MEDS: Heparin VIAL(*) 5000 UNITS/ML VIAL (FIVE THOUSAND) SUBCUT SCH ×2 (15:16→22:20)
--- NOTE | 2017-02-03 17:06 | ED ---
Laquita Juárez Alfonso, scribed for Forrest Lynch MD on 02/03/17 at 1414 . Progress - Progress Note Progress Note: This patient was signed out at shift change by Dr. Bradford, pending disposition, awaiting ETOH level. However, the patient continues to have N/V. The patient was hydrated with a couple liters of IV fluid and given Zofran. I consulted Dr. Reyes (hospitalist) who agrees to admit. The patients condition is stable and she will be admitted to [facility] with Dx of alcohol intoxication, alcohol withdrawal , and intractable N/V. Course/Dx - Diagnoses Provider Diagnoses: Alcohol intoxication, Alcohol withdrawal, Intractable nausea and vomiting, Hypokalemia, Lactic acidosis The documentation as recorded by the Laquita juan Alfonso accurately reflects the service I personally performed and the decisions made by me, Forrest Lynch MD.
[2017-02-03] MEDS ORDERED: NS 0.9% 1000 ML* 1,000 ML IV ONE (17:24)
--- NOTE | 2017-02-03 20:10 | HP ---
CC: Arnold Chan NP * HISTORY AND PHYSICAL: DATE OF ADMISSION: 02/03/17 PRIMARY CARE PROVIDER: Arnold Chan NP ATTENDING PHYSICIAN WHILE IN THE HOSPITAL: Patrizia Reyes MD (report dictated by Darius Robertson NP) CHIEF COMPLAINT: Fall. HISTORY OF PRESENT ILLNESS: Ms. Bland is a 67-year-old female patient. She has a history of alcoholism, COPD, angina, hypertension, IBS, arthritis, history of seizures. She has a history of anxiety, depression, PTSD, and carries a history of again ETOH abuse. She came in originally to the ER last night because she had fallen. She said she was going to put her phone down and she had fallen forward landing on her side. She says that she did not hit her head as she can recall. She denied having any abdominal pain at that point. Denied any nausea or vomiting. She said she had just fallen, and because she had fallen several times in the last week, she was concerned and came into our ER. She had called 911, was brought in and evaluated. Initial labs showed that she had an alcohol level of 340, her lactic was 5, potassium was low. The ED tried replacing these in the ER; however, this morning, her potassium had come up and lactic was trending down, but this morning she developed new onset of vomiting probably around 9 o'clock this morning; 9:30 she started vomiting. She could not keep things down. She has had a bowel movement down here and because of this we were asked to evaluate admission. In evaluating her, she said she had not been nauseous or vomiting prior and she denied having any chest pain. She said she is coughing now because she has not had a cigarette. She denies having any worsening shortness of breath. No chest discomfort. She does admit to having abdominal pain that is a kind of generalized, she says and described it as just a pressure and ache. She denies having any recent fevers or chills and denied having any diarrhea. She says that she had not been having any recent URI symptoms. She does state that she has been drinking 3 to 4 osei jars of alcohol a day, sometimes 6, it just depends on what her mood is, she says, and she has been smoking about a pack of cigarettes a day now. She denied having any fevers or chills recently, but because of this new complaints of abdominal discomfort and complaints of the nausea and vomiting, we were asked to evaluate for admission. PAST MEDICAL HISTORY: Significant for: 1. COPD. 2. Angina. 3. Hypertension. 4. IBS. 5. Arthritis. 6. Seizures. 7. Anxiety. 8. Depression. 9. PTSD. 10. History of EtOH abuse. PAST SURGICAL HISTORY: 1. The patient has had a carotid endarterectomy. 2. Appendectomy. 3. Tonsillectomy. 4. x2. 5. Tubal ligation. MEDICATIONS: Her home meds include: 1. Multivitamin 1 tablet p.o. daily. 2. Dulera 2 puffs inhaled b.i.d. 3. Ativan 0.5 mg to 1 mg p.o. b.i.d. as needed. 4. Folic acid 1 mg p.o. daily. 5. Vitamin D3 2000 units daily. 6. DuoNeb 1 neb inhaled every 4 hours as needed. 7. Ventolin 2 puffs inhaled every 4 hours. 8. Spiriva 1 capsule inhaled daily. 9. Vitamin B 100 mg p.o. daily. 10. Seroquel 50 to 100 mg daily. ALLERGIES TO MEDICATIONS: Include GABAPENTIN, PREDNISONE, AND DOXY. FAMILY HISTORY: Mother had a history of dementia. Father had a history of heart disease and colon cancer. SOCIAL HISTORY: She is a pack to pack and half a day smoker. She has been smoking for 40 plus years. She does admit to drinking daily, again anywhere between 3 and 6 osei jars of alcohol a day depending on how she is feeling. She denies any other drug use. Her surrogate decision maker is her daughter Gay. REVIEW OF SYSTEMS: There is no documented fever. She denied any significant weight change. There is no rhinorrhea. No sore throat. No thyroid enlargement. She denied having any chest pain. No orthopnea, no nocturnal dyspnea. There is some shortness of breath, but again it is at her baseline she says. There has been no reports of worsening shortness of breath, orthopnea or nocturnal dyspnea. She does admit now having a generalized abdominal pain with associated nausea and vomiting. No dysuria, no frequency. There was no seizure. No loss of consciousness. No pruritus and no skin ulcerations. Review of 14 systems completed, all others negative. PHYSICAL EXAMINATION GENERAL: At this time, Ms. Bland is a 67-year-old female patient. She appears to be older than stated age. She is chronically ill-appearing. She is sitting in the ER. She does not appear to be in any acute distress. VITAL SIGNS: Blood pressure 159/75, pulse of 106, respirations 20, O2 sat 95%, temperature 96.9. HEENT: Head is atraumatic. Eyes: Sclerae are anicteric and not pale. Throat : Oral mucosa appears to be dry. No oropharyngeal erythema. NECK: Supple. LUNGS: Rhonchorous throughout. She does have wheezing noted in the upper lobe. She had equal diaphragmatic expansion. HEART: Sounds S1, S2. Regular rate and rhythm. She is tachycardic. ABDOMEN: It was protruded. It was distended. It was tympanic. There was tenderness in the epigastric area and also to the right upper quadrant. Bowel sounds were present. EXTREMITIES: Pulses are 2+ throughout. She does have some +1 to 2 pitting edema bilaterally. She is moving all 4 extremities with 5/5 strength. NEUROLOGIC: She is awake, she is alert, she is oriented x3. She does have a tremor. Burlap Roll Coverer are equal. Tongue midline. No gross focal deficits. SKIN: Intact with the exception she does have an abrasion to the right castañeda. DIAGNOSTIC STUDIES/LAB DATA: Her labs today WBC 6.1, RBC is 3.22, hemoglobin 12.8, hematocrit 37, and platelet count of 109. The INR of 1.10. The sodium was 136, potassium is 3.7, chloride of 100, bicarb was 22, the BUN was 4, the creatinine was 0.37, glucose 70. Her lactic initially when she came in was 5.2 , it is now down to 2.9. Her calcium is 7.5. Total bili 2.3, AST 129, ALT was 50, alk phos 136. Her CRP when she came in was 1. The total protein was 5. The albumin is 2.8. Lipase is pending. She had a urine obtained, showed 1+ protein, trace ketones, 1+ blood, positive urobilinogen, trace leukocyte esterase. Toxicology showed an initial alcohol level of 341, it is now down to 81. She did have a chest x-ray obtained today around 8 o'clock last night which shows stigmata of COPD. No acute cardiac or pulmonary process evident. She had an EKG obtained today revealing a sinus rhythm rate of 94. No ST elevation or T-wave inversions are noted. Old medical records were reviewed. ASSESSMENT AND PLAN: Ms. Bland is a 67-year-old female patient with multiple medical problems coming into the ED today initially with complaints of fall, then during her stay here it was noted that she was having worsening nausea and vomiting and because of this we were asked to evaluate. She will be admitted under inpatient status for: 1. Abdominal pain with distension. Again, I am concerned that she may have developed an obstruction since she has been down here. I feel that the patient should have a CT of the abdomen and pelvis and I am also going to get a KUB. Depending on these images, I may need to get surgical consult. I am making her n.p.o. until I know further what is going on. I am repeating her CRP from this morning's labs. I am also going to follow again serial exams and follow her closely. If there is obstruction, obviously I will get the input from our surgical team. I am also checking a lipase. 2. Ethanol abuse. Again, I will put her on the [facility] protocol, give her a banana bag and place her on standing Ativan. 3. Chronic obstructive pulmonary disease. She does again have wheezing significantly on exam. I am going to go ahead and put her on inhaled steroids and standing nebulizers for the time being and pulmonary toilet. 4. Hypertension. We will continue her current meds. Her blood pressure is stable here. 5. Irritable bowel syndrome. Continue meds as prescribed. 6. History of seizures. She will be on standing Ativan. 7. Anxiety, depression, and posttraumatic stress disorder. Continue with supportive care. 8. Code status: Full code. 9. DVT prophylaxis: Heparin subcu. 10. Fluids, electrolytes, and nutrition: She will be n.p.o. We replaced her potassium. We will add on a mag level as well as this could be low. She will be n.p.o. and will have normal saline going and then I ordered again a banana bag for the patient. TIME SPENT: Time spent on the admission 60 minutes, greater than half of the time was spent [id number] with the patient obtaining my history and physical, other half time spent going over the plan of care with the patient and implementing the plan of care. I did discuss the plan of care with my attending, Dr. Reyes; she is in agreement. DARIUS ROBERTSON NP [id number]/CPS #: [id number] [place]
[2017-02-03] MEDS: Mometasone/Formoter 200/5 MDI INH SCH (21:24)
[2017-02-03] MEDS: Albuterol/Ipratropium NEB.SOL* Albuterol 2.5 MG/Ipratropium 0.5 MG 3 ML INH SCH (21:24)
[2017-02-03] MEDS: Nicotine GUM* 2 MG PO PRN (22:22)
[2017-02-04] MEDS: Albuterol/Ipratropium NEB.SOL* Albuterol 2.5 MG/Ipratropium 0.5 MG 3 ML INH SCH ×3 (01:05→08:27)
[2017-02-04] MEDS ORDERED: Nitroglycerin TAB 0.4 MG* 0.4 MG TAB SL ONE (03:49)
[2017-02-04] MEDS: LORazepam INJ* 2 MG/ML 1 ML VIAL IV SCH ×2 (04:15→16:04)
[2017-02-04] MEDS: Heparin VIAL(*) 5000 UNITS/ML VIAL (FIVE THOUSAND) SUBCUT SCH ×3 (06:04→21:15)
[2017-02-04 07:07] LABS: Hematocrit 33 % (35-47); Hemoglobin 11.6 g/dl (12.0-16.0); Mean Corpuscular HGB Conc 35 g/dl (31-36); Mean Corpuscular Hemoglobin 40 pg (27-31); Mean Corpuscular Volume 114 fL (80-97); Mean Platelet Volume 9 um3 (7.4-10.4); Red Blood Count 2.91 10^6/ul (4.0-5.4); Red Cell Distribution Width 16 % (10.5-15); White Blood Count 6.2 10^3/ul (3.5-10.8)
[2017-02-04 07:08] LABS: Add Diff/Slide Review? Slide Review Added; Comments Flag Yes
[2017-02-04 07:13] LABS: Albumin 2.8 g/dL (3.2-5.2); BUN/Creatinine Ratio 7.3 (8-20); Calcium 7.6 mg/dL (8.6-10.3); EGFR African American 199.6 (>60); EGFR Non-African American 155.2 (>60); Globulin 3.2 g/dL (2-4); Total Bilirubin 3.5 mg/dL (0.2-1.0)
[2017-02-04 07:29] LABS: Potassium 2.6 mmol/L (3.5-5.0)
[2017-02-04] MEDS: Mometasone/Formoter 200/5 MDI INH SCH ×2 (08:27→21:09)
--- NOTE | 2017-02-04 08:40 | PN ---
Subjective Date of Service: 02/04/17 Interval History: HOSPITALIST PROGRESS NOTE Patient seen and examined at bedside. She's lethargic, nodding off while receiving her breathing treatment. Arousable , offers no complaints. Family History: Unchanged from Admission Social History: Unchanged from Admission Past Medical History: Unchanged from Admission Objective Active Medications: Albuterol (Ventolin 2.5 Mg/3 Ml Neb.Barbara*) 2.5 mg INH Q2H PRN PRN Reason: SOB/WHEEZING Last Admin: 02/03/17 21:27 Dose: 2.5 mg Folic Acid (Folvite Tab*) 1 mg PO DAILY [facility] Heparin Sodium (Porcine) (Heparin Vial(*)) 5,000 units SUBCUT Q8HR [facility] Last Admin: 02/04/17 06:04 Dose: 5,000 units Potassium Chloride (Potassium Chloride 10 Meq/50 Ml Ivpremix*) 10 meq in 50 mls @ 50 mls/hr IV Q1H [facility] Stop: 02/04/17 11:59 Lorazepam (Ativan Inj*) 0 - 3 mg IV PUSH .PER [facility] PROTOCOL [facility] PRN Reason: Protocol Last Admin: 02/03/17 17:47 Dose: 2.5 mg Lorazepam (Ativan Inj*) 1 mg IV Q12H [facility] PRN Reason: Taper Stop: 02/06/17 07:59 Last Admin: 02/04/17 04:15 Dose: 1 mg Mometasone Furoate/Formoterol Fumar (Dulera 200/5 Mdi*) 2 puff INH BID [facility] Last Admin: 02/04/17 08:27 Dose: 2 puff Multivitamins/Minerals (Theragran/Minerals Tab*) 1 tab PO DAILY [facility] Nicotine Polacrilex (Nicotine Gum*) 2 mg PO Q2H PRN PRN Reason: CRAVING Last Admin: 02/03/17 22:22 Dose: 2 mg Ondansetron HCl (Zofran Inj*) 4 mg IV Q6H PRN PRN Reason: NAUSEA Thiamine HCl (Vitamin B-1 Tab*) 100 mg PO DAILY [facility] Vital Signs - 8 hr 02/04/17 02/04/17 02/04/17 05:15 06:09 07:40 Temperature 98.1 F 98.4 F Pulse Rate 101 99 Respiratory 24 28 24 Rate Blood Pressure 116/76 140/64 (mmHg) O2 Sat by Pulse 92 90 Oximetry Oxygen Devices in Use Now: Nasal Cannula - 2 liters Appearance: Elderly lady, disheveled appearance, lying in bed in NAD. Eyes: No Scleral Icterus Ears/Nose/Mouth/Throat: Mucous Membranes Moist Neck: Trachea Midline Respiratory: Symmetrical Chest Expansion and Respiratory Effort, Clear to Auscultation Cardiovascular: RRR - Normal S1 and S2 Abdominal: - - Soft, mild distention, NG, NR, BS+ hypoactive Neurological: - - lethargic, arousable to voice, oriented to self Result Diagrams: 02/04/17 06:40 02/04/17 06:40 Assess/Plan/Problems-Billing Assessment: Mrs. Bland is a 67yo F with PMH of ETOH abuse, COPD, HTN, seizures, anxiety/ depression, who presented to ED after a fall. - Patient Problems (1) Alcoholism Comment: - ETOH level was 341 on admission. - Continue WAM protocol. (2) SBO (small bowel obstruction) Comment: - SBO vs ileus. - Improving. - Continue clear liquids as tolerated and monitor KUB. (3) COPD (chronic obstructive pulmonary disease) Comment: - Continue bronchodilators. (4) DVT prophylaxis Comment: SQ heparin (5) Full code status Status and Disposition: Inpatient.
[2017-02-04] MEDS: KCL 10 MEQ/50 ML IVPREMIX* 10 MEQ/50 ML BAG IV SCH ×4 (09:28→12:40)
[2017-02-04] MEDS: Multivitamins/Minerals TAB PO SCH (09:28)
[2017-02-04] MEDS: Folic Acid TAB* 1 MG PO SCH (09:29)
[2017-02-04] MEDS: Thiamine TAB* 100 MG TAB PO SCH (09:29)
--- NOTE | 2017-02-04 09:30 | RAD ---
Indication: Follow-up small bowel obstruction. Distended painful abdomen. Comparison: February 03, 2017 CT. Technique: Supine view of the abdomen. Report: Mildly dilated small bowel loops most suggestive of ileus. Decompressed colon. Mild central displacement of the small bowel loops secondary to ascites. No nasogastric tube visualized. Vascular calcifications and pelvic phleboliths. No gross abnormality of the soft tissue contours. Residual pyelographic phase contrast at the urinary bladder from the CT of one day prior. No conspicuous residual pyelographic phase contrast at the intrarenal collecting systems. IMPRESSION: 1. Mildly dilated small bowel loops most suggestive of ileus. 2. Ascites. 3. Urinary retention.
[2017-02-04] MEDS ORDERED: LORazepam INJ* 2 MG/ML 1 ML VIAL IV PUSH ONE (12:24)
[2017-02-04] MEDS ORDERED: LORazepam INJ* 2 MG/ML 1 ML VIAL ONE (12:37)
[2017-02-05] MEDS: LORazepam INJ* 2 MG/ML 1 ML VIAL IV SCH ×2 (04:05→16:07)
[2017-02-05 04:53] LABS: Comments Flag Yes; Hematocrit 31 % (35-47); Hemoglobin 10.7 g/dl (12.0-16.0); Mean Corpuscular HGB Conc 34 g/dl (31-36); Mean Corpuscular Hemoglobin 39 pg (27-31); Red Blood Count 2.72 10^6/ul (4.0-5.4); Red Cell Distribution Width 16 % (10.5-15)
[2017-02-05 04:54] LABS: Mean Corpuscular Volume 114 fL (80-97)
[2017-02-05 04:55] LABS: Add Diff/Slide Review? Slide Review Added
[2017-02-05 05:08] LABS: BUN/Creatinine Ratio 9.4 (8-20)
[2017-02-05 05:09] LABS: Albumin 2.5 g/dL (3.2-5.2); Calcium 7.5 mg/dL (8.6-10.3); EGFR African American 265.7 (>60); EGFR Non-African American 206.6 (>60); Globulin 3.1 g/dL (2-4); Magnesium 1.2 mg/dL (1.9-2.7); Total Bilirubin 1.8 mg/dL (0.2-1.0); Total Protein 5.6 g/dL (6.4-8.9)
[2017-02-05 05:16] LABS: Potassium 2.5 mmol/L (3.5-5.0)
[2017-02-05 05:21] LABS: Mean Platelet Volume 8 um3 (7.4-10.4)
[2017-02-05] MEDS ORDERED: Potassium Chlor TAB* 20 MEQ TAB.ER PO ONE (05:27)
[2017-02-05] MEDS: KCL premix 10MEQ/50 ML x 4 RUNS IV SCH ×4 (05:45→09:29)
[2017-02-05] MEDS: Heparin VIAL(*) 5000 UNITS/ML VIAL (FIVE THOUSAND) SUBCUT SCH ×3 (05:45→21:21)
[2017-02-05] MEDS ORDERED: KCL 20 MEQ/100 ML IVPREMIX* 20 MEQ/100 ML BAG IV SCH (06:00)
[2017-02-05] MEDS ORDERED: Magnesium Sulf 4 GM/100 ML IV* 4,000 MG/100 ML BAG IVPB ONE (07:30)
[2017-02-05] MEDS: Mometasone/Formoter 200/5 MDI INH SCH ×2 (07:58→20:18)
[2017-02-05] MEDS: Multivitamins/Minerals TAB PO SCH (07:58)
[2017-02-05] MEDS: Thiamine TAB* 100 MG TAB PO SCH (07:59)
[2017-02-05] MEDS: Folic Acid TAB* 1 MG PO SCH (07:59)
--- NOTE | 2017-02-05 08:58 | RAD ---
HISTORY: Follow-up small bowel obstruction COMPARISONS: February 04, 2017, CT dated February 03, 2017 VIEWS: Frontal views of the abdomen. FINDINGS: BOWEL: There is a nonspecific bowel gas pattern, with nondilated small bowel gas noted. CALCULI: There are no abnormal calculi. BONES AND SOFT TISSUES: There are no osseous abnormalities. OTHER FINDINGS: The lung bases are clear. There is no subphrenic gas. IMPRESSION: NONSPECIFIC BOWEL GAS PATTERN, NO SUBPHRENIC GAS.
[2017-02-05] MEDS: KCL 10 MEQ/50 ML IVPREMIX* 10 MEQ/50 ML BAG IV SCH ×2 (09:26→09:27)
[2017-02-05] MEDS ORDERED: LORazepam TAB(*) 0.5 MG PO PRN (10:30)
[2017-02-05] MEDS: Nicotine GUM* 2 MG PO PRN ×2 (10:51→17:42)
[2017-02-05] MEDS: Acetaminophen TAB* 325 MG PO PRN (10:52)
--- NOTE | 2017-02-05 12:54 | CONSULT ---
Consult Consult: Consultation for Medical Decision Making Capacity: S: Psychiatry is asked to see patient to assess whether she has capacity to refuse SNF placement. Tiffany is a , white female with a history of depression, anxiety, alcoholism and tobacco use d/o. She is known to pattern chart writer due to previous treatment on inpatient BSU. She is currently hospitalized s/p fall in her home and has significant medical comorbidities. She is being monitored on telemetry unit and receiving IVF and electrolyte replacement. She is also on [facility] protocol for alcohol use d/o. She is refusing referral to SNF despite documentation of closed home-based services due to unsafe conditions in her home. On exam the patient is cooperative and pleasant. She answers questions fully and has a large knowledge base. She minimizes her alcohol use and reports prn use of lorazepam for panic attacks. She states that benzodiazepine use "slows down my drinking a lot" as she utilizes lorazepam for panic attacks instead of drinking. She reports multiple family stressors over the course of this year, including a daughter's MVC leaving her paralyzed. Tiffany states her 14yo dog of cancer in November. She states she has trialed psychiatric medications through her PCP with little efficacy. She states she sees psychologist Wong Hamilton, PhD on a monthly basis. The patient reports feeling comfortable and safe in her home. She endorses clutter and has been trying to organize. She denies need for assisted facility and states that such an environment would cause more distress for her. O: aging white female, appears older than stated age. She is pleasant and cooperative, euthymic with full affect. She is tearful at times, congruent with topic of conversation (family stressors); denies SI/HI/. Scores 30/30 on MMSE. A/P: Capacity: patient is competent in regards to capacity to make informed medical decisions. She has poor insight into level of care needed for her medical needs. Thank you for opportunity to consult.
--- NOTE | 2017-02-05 14:36 | PN ---
Subjective Date of Service: 02/05/17 Interval History: HOSPITALIST PROGRESS NOTE Patient seen and examined at bedside. Abdominal pain is improved, she passed flatus and is tolerating diet. C/o diffuse body aches, bed is uncomfortable, anxiety is worse and she needs more Ativan. Family History: Unchanged from Admission Social History: Unchanged from Admission Past Medical History: Unchanged from Admission Objective Active Medications: Acetaminophen (Tylenol Tab*) 650 mg PO Q6H PRN PRN Reason: pain/fever Last Admin: 02/05/17 10:52 Dose: 650 mg Albuterol (Ventolin 2.5 Mg/3 Ml Neb.Barbara*) 2.5 mg INH Q2H PRN PRN Reason: SOB/WHEEZING Last Admin: 02/03/17 21:27 Dose: 2.5 mg Folic Acid (Folvite Tab*) 1 mg PO DAILY [facility] Last Admin: 02/05/17 07:59 Dose: 1 mg Heparin Sodium (Porcine) (Heparin Vial(*)) 5,000 units SUBCUT Q8HR [facility] Last Admin: 02/05/17 13:31 Dose: 5,000 units Ketorolac Tromethamine (Toradol Inj*) 15 mg IV PUSH Q6H PRN PRN Reason: PAIN Lorazepam (Ativan Inj*) 0 - 3 mg IV PUSH .PER [facility] PROTOCOL [facility] PRN Reason: Protocol Last Admin: 02/03/17 17:47 Dose: 2.5 mg Lorazepam (Ativan Inj*) 1 mg IV Q12H [facility] PRN Reason: Taper Stop: 02/06/17 07:59 Last Admin: 02/05/17 04:05 Dose: 1 mg Lorazepam (Ativan Tab(*)) 0.5 mg PO BID PRN PRN Reason: ANXIETY Mometasone Furoate/Formoterol Fumar (Dulera 200/5 Mdi*) 2 puff INH BID [facility] Last Admin: 02/05/17 07:58 Dose: 2 puff Multivitamins/Minerals (Theragran/Minerals Tab*) 1 tab PO DAILY [facility] Last Admin: 02/05/17 07:58 Dose: 1 tab Nicotine Polacrilex (Nicotine Gum*) 2 mg PO Q2H PRN PRN Reason: CRAVING Last Admin: 02/05/17 10:51 Dose: 2 mg Quetiapine Fumarate (Seroquel Tab*) 50 mg PO BEDTIME [facility] Thiamine HCl (Vitamin B-1 Tab*) 100 mg PO DAILY [facility] Last Admin: 02/05/17 07:59 Dose: 100 mg Vital Signs - 8 hr 02/05/17 02/05/17 09:11 11:02 Temperature 99.2 F 97.8 F Pulse Rate 95 97 Respiratory 22 22 Rate Blood Pressure 105/67 121/68 (mmHg) O2 Sat by Pulse 95 94 Oximetry Oxygen Devices in Use Now: Nasal Cannula - 2 liters Appearance: Elderly lady, disheveled appearance, lying in bed in NAD. Eyes: No Scleral Icterus Ears/Nose/Mouth/Throat: Mucous Membranes Moist Neck: Trachea Midline Respiratory: Symmetrical Chest Expansion and Respiratory Effort, - - BS+ bilaterally decreased, no added sounds Cardiovascular: RRR - Normal S1 and S2 Abdominal: - - Mild distention, soft, NT, BS+ Neurological: Alert and Oriented x 3, NL Muscle Strength and Tone Result Diagrams: 02/05/17 04:42 02/05/17 04:42 Assess/Plan/Problems-Billing Assessment: Mrs. Bland is a 67yo F with PMH of ETOH abuse, COPD, HTN, seizures, anxiety/ depression, who presented to ED after a fall. - Patient Problems (1) Alcoholism Comment: - ETOH level was 341 on admission. - Continue WAM protocol. (2) SBO (small bowel obstruction) Comment: - SBO vs ileus. - Improving - KUB shows non specific gas pattern. - Advance diet to full liquids. (3) COPD (chronic obstructive pulmonary disease) Comment: - Continue bronchodilators. (4) DVT prophylaxis Comment: SQ heparin (5) Full code status (6) Physical deconditioning Comment: - PT/OT input appreciated. - Patient would certainly benefit of PLACIDO, but adamant she'll "never go to a longterm again". - Will request Psych evaluation for determination of capacity. Status and Disposition: Inpatient. Patient only want her daughter (Gay) to be updated about her condition.
[2017-02-05 15:09] LABS: BUN/Creatinine Ratio 8.8 (8-20); Calcium 8.2 mg/dL (8.6-10.3); EGFR African American 247.7 (>60); EGFR Non-African American 192.6 (>60); Magnesium 3.3 mg/dL (1.9-2.7); Potassium 3.5 mmol/L (3.5-5.0)
[2017-02-05] MEDS: QUEtiapine TAB* 25 MG PO SCH (21:21)
[2017-02-06] MEDS: LORazepam INJ* 2 MG/ML 1 ML VIAL IV SCH (04:28)
[2017-02-06] MEDS: Acetaminophen TAB* 325 MG PO PRN (04:31)
[2017-02-06 05:07] LABS: Hematocrit 29 % (35-47); Hemoglobin 10.2 g/dl (12.0-16.0); Mean Corpuscular HGB Conc 35 g/dl (31-36); Mean Corpuscular Hemoglobin 40 pg (27-31); Mean Platelet Volume 9 um3 (7.4-10.4); Red Blood Count 2.54 10^6/ul (4.0-5.4); Red Cell Distribution Width 16 % (10.5-15); White Blood Count 3.7 10^3/ul (3.5-10.8)
[2017-02-06 05:08] LABS: Comments Flag Yes
[2017-02-06 05:09] LABS: Mean Corpuscular Volume 115 fL (80-97)
[2017-02-06 05:22] LABS: Albumin 2.4 g/dL (3.2-5.2); BUN/Creatinine Ratio 9.4 (8-20); Calcium 8.2 mg/dL (8.6-10.3); EGFR African American 265.7 (>60); EGFR Non-African American 206.6 (>60); Magnesium 1.6 mg/dL (1.9-2.7); Total Bilirubin 1.3 mg/dL (0.2-1.0); Total Protein 5.4 g/dL (6.4-8.9)
[2017-02-06 05:33] LABS: Potassium 2.7 mmol/L (3.5-5.0)
[2017-02-06] MEDS: Potassium Chlor TAB* 20 MEQ TAB.ER PO SCH ×2 (06:11→08:58)
[2017-02-06] MEDS: Heparin VIAL(*) 5000 UNITS/ML VIAL (FIVE THOUSAND) SUBCUT SCH ×3 (06:11→22:01)
[2017-02-06] MEDS: Mometasone/Formoter 200/5 MDI INH SCH ×2 (07:26→20:33)
[2017-02-06] MEDS: Folic Acid TAB* 1 MG PO SCH (08:57)
[2017-02-06] MEDS: Multivitamins/Minerals TAB PO SCH (08:57)
[2017-02-06] MEDS: Thiamine TAB* 100 MG TAB PO SCH (08:57)
[2017-02-06] MEDS ORDERED: Magnesium Sulfate 2 GM IV* 2 GM/50 ML BAG IVPB ONE (09:00)
[2017-02-06] MEDS: KCL 10 MEQ/50 ML IVPREMIX* 10 MEQ/50 ML BAG IV SCH ×2 (10:00→11:09)
[2017-02-06] MEDS: LORazepam TAB(*) 0.5 MG PO SCH ×2 (12:38→22:00)
[2017-02-06] MEDS ORDERED: PROCHLORPERAZINE INJ 5 MG/ML 2 ML VIAL ONE (14:09)
[2017-02-06] MEDS: PROCHLORPERAZINE INJ 5 MG/ML 2 ML VIAL IV PRN (14:12)
--- NOTE | 2017-02-06 15:36 | PN ---
Subjective Date of Service: 02/06/17 Interval History: HOSPITALIST PROGRESS NOTE Patient seen and examined at bedside. States her abdominal pain is improved, had 1 BM yesterday, and wants to eat solid food. C/o her living conditions, states she needs someone to clean her place under her supervision when she's discharged. States she had enough food and Meals on Wheels. Concerned about who's going to plow her driveway. Family History: Unchanged from Admission Social History: Unchanged from Admission Past Medical History: Unchanged from Admission Objective Active Medications: Acetaminophen (Tylenol Tab*) 650 mg PO Q6H PRN PRN Reason: pain/fever Last Admin: 02/06/17 04:31 Dose: 650 mg Albuterol (Ventolin 2.5 Mg/3 Ml Neb.Barbara*) 2.5 mg INH Q2H PRN PRN Reason: SOB/WHEEZING Last Admin: 02/03/17 21:27 Dose: 2.5 mg Folic Acid (Folvite Tab*) 1 mg PO DAILY [facility] Last Admin: 02/06/17 08:57 Dose: 1 mg Heparin Sodium (Porcine) (Heparin Vial(*)) 5,000 units SUBCUT Q8HR [facility] Last Admin: 02/06/17 14:12 Dose: 5,000 units Ketorolac Tromethamine (Toradol Inj*) 15 mg IV PUSH Q6H PRN PRN Reason: PAIN Lorazepam (Ativan Inj*) 0 - 3 mg IV PUSH .PER [facility] PROTOCOL [facility] PRN Reason: Protocol Last Admin: 02/03/17 17:47 Dose: 2.5 mg Lorazepam (Ativan Tab(*)) 0.5 mg PO BID [facility] Last Admin: 02/06/17 12:38 Dose: 0.5 mg Mometasone Furoate/Formoterol Fumar (Dulera 200/5 Mdi*) 2 puff INH BID [facility] Last Admin: 02/06/17 07:26 Dose: 2 puff Multivitamins/Minerals (Theragran/Minerals Tab*) 1 tab PO DAILY [facility] Last Admin: 02/06/17 08:57 Dose: 1 tab Nicotine Polacrilex (Nicotine Gum*) 2 mg PO Q2H PRN PRN Reason: CRAVING Last Admin: 02/05/17 17:42 Dose: 2 mg Prochlorperazine Edisylate (Compazine Inj*) 5 mg IV Q6H PRN PRN Reason: NAUSEA/VOMITING Last Admin: 02/06/17 14:12 Dose: 5 mg Quetiapine Fumarate (Seroquel Tab*) 50 mg PO BEDTIME [facility] Last Admin: 02/05/17 21:21 Dose: 50 mg Thiamine HCl (Vitamin B-1 Tab*) 100 mg PO DAILY [facility] Last Admin: 02/06/17 08:57 Dose: 100 mg Vital Signs - 8 hr 02/06/17 02/06/17 02/06/17 07:52 09:10 12:38 Temperature 97.6 F 97.7 F Pulse Rate 89 95 Respiratory 24 20 18 Rate Blood Pressure 120/60 124/69 (mmHg) O2 Sat by Pulse 93 93 Oximetry Oxygen Devices in Use Now: Nasal Cannula - 2 liters Appearance: Elderly lady, appears older than stated age, lying in bed in NAD. Eyes: No Scleral Icterus Ears/Nose/Mouth/Throat: Mucous Membranes Moist Neck: Trachea Midline Respiratory: Symmetrical Chest Expansion and Respiratory Effort, - - BS+ bilaterally decreased with no added sounds Cardiovascular: RRR - Normal S1 and S2 Abdominal: - - Mild distention, soft, NT, BS+ Neurological: Alert and Oriented x 3, NL Muscle Strength and Tone Result Diagrams: 02/06/17 04:59 02/06/17 04:59 Assess/Plan/Problems-Billing Assessment: Mrs. Bland is a 67yo F with PMH of ETOH abuse, COPD, HTN, seizures, anxiety/ depression, who presented to ED after a fall. - Patient Problems (1) Hypokalemia Comment: - Replete. (2) Hypomagnesemia Comment: - Replete. (3) Alcoholism Comment: - ETOH level was 341 on admission. - Has not required Ativan. Change WAM check to q4h. (4) SBO (small bowel obstruction) Comment: - SBO vs ileus. - Resolved. - Advance to low fiber diet. (5) COPD (chronic obstructive pulmonary disease) Comment: - Continue bronchodilators. (6) DVT prophylaxis Comment: SQ heparin (7) Full code status (8) Physical deconditioning Comment: - PT/OT input appreciated. - Patient would certainly benefit of PLACIDO, but adamant she'll "never go to a assisted again". - Psych evaluation appreciated - patient has capacity to refuse SNF placement. - CM to assist with help at home set up. Status and Disposition: Inpatient. Patient only want her daughter (Gay) to be updated about her condition.
[2017-02-06] MEDS: QUEtiapine TAB* 25 MG PO SCH (22:00)
[2017-02-07] MEDS: Acetaminophen TAB* 325 MG PO PRN ×2 (02:08→23:27)
[2017-02-07] MEDS: Heparin VIAL(*) 5000 UNITS/ML VIAL (FIVE THOUSAND) SUBCUT SCH ×3 (05:56→22:12)
[2017-02-07 08:39] LABS: BUN/Creatinine Ratio 10.8 (8-20); Calcium 8.9 mg/dL (8.6-10.3); EGFR African American 224.7 (>60); EGFR Non-African American 174.7 (>60); Magnesium 1.5 mg/dL (1.9-2.7); Potassium 3.2 mmol/L (3.5-5.0)
[2017-02-07] MEDS: Mometasone/Formoter 200/5 MDI INH SCH ×2 (08:59→19:48)
[2017-02-07] MEDS: Thiamine TAB* 100 MG TAB PO SCH (09:40)
[2017-02-07] MEDS: Multivitamins/Minerals TAB PO SCH (09:40)
[2017-02-07] MEDS: Nicotine GUM* 2 MG PO PRN ×3 (09:40→18:02)
[2017-02-07] MEDS: Folic Acid TAB* 1 MG PO SCH (09:40)
[2017-02-07] MEDS: LORazepam TAB(*) 0.5 MG PO SCH ×2 (09:40→20:50)
--- NOTE | 2017-02-07 12:04 | RAD ---
Indication: Ileus, small bowel obstruction. Flat and decubitus views of the abdomen demonstrates no free air. Moderately distended loops of small bowel are noted. This is nonspecific and I cannot totally exclude an early or partial small bowel obstruction. IMPRESSION: Moderately distended loops of small bowel with air-fluid levels. Early or partial obstruction is not excluded.
[2017-02-07] MEDS ORDERED: Magnesium Sulfate 2 GM IV* 2 GM/50 ML BAG IVPB ONE (13:00)
[2017-02-07] MEDS: KCL 10 MEQ/50 ML IVPREMIX* 10 MEQ/50 ML BAG IV SCH ×3 (13:10→17:54)
[2017-02-07] MEDS: NS 0.9% w/ 20 Meq KCL 1000 ML* 1,000 ML IV SCH (13:12)
[2017-02-07] MEDS ORDERED: Iohexol 300* (CONTRAST) 10 ML SDV IV ONE (13:54)
--- NOTE | 2017-02-07 15:50 | RAD ---
CLINICAL HISTORY: Small bowel obstruction COMPARISON: February 03, 2017 TECHNIQUE: Multiple contiguous axial CT scans were obtained of the abdomen and pelvis after the administration of intravenous contrast. Coronal and sagittal multiplanar reformations are submitted for review. Oral contrast was administered. Delayed images were obtained through the abdomen and pelvis. FINDINGS: LUNG BASES: There are trace bilateral pleural effusions. LIVER: The liver is diffusely low in attenuation compared to the spleen. There are no focal hepatic parenchymal masses. BILE DUCTS: There is no intrahepatic or extrahepatic biliary dilatation. GALLBLADDER: The gallbladder is incompletely distended but is grossly normal. PANCREAS: The pancreas is normal, without mass or ductal dilatation. SPLEEN: Normal in size and appearance. UPPER GI TRACT: Evaluation of the gastrointestinal tract is limited by incomplete gastric distention. The upper GI tract is unremarkable. SMALL BOWEL AND MESENTERY: The small bowel is normal in contour, course, and caliber. There is no obstruction or dilatation. COLON: There are multiple diverticula of the sigmoid colon. There is no pericolonic inflammatory change. Oral contrast reaches the colon. There is mucosal thickening of the ascending colon. ADRENALS: Normal bilaterally. KIDNEYS: The kidneys are normal in shape, size, contour, and axis. There is no hydronephrosis or nephrolithiasis. BLADDER: The bladder is smooth in contour. PELVIC ORGANS: The uterus and adnexa are grossly normal for technique. AORTA: There is calcific atherosclerotic disease of the abdominal aorta and its branches, without aneurysmal dilatation IVC: Unremarkable LYMPH NODES: There is no lymphadenopathy by size criteria. ABDOMINAL WALL: There is no evidence for abdominal wall hernia. BONES AND SOFT TISSUES: There is a scoliotic curvature of the spine. Degenerative changes are noted. There are chronic appearing right-sided rib fractures. OTHER: There is moderate amount of ascites. IMPRESSION: 1. NO OBSTRUCTION. 2. DIVERTICULOSIS. 3. MUCOSAL THICKENING OF THE ASCENDING COLON. 4. FATTY INFILTRATION OF THE LIVER. 5. MODERATE ASCITES. 6. ATHEROSCLEROSIS
--- NOTE | 2017-02-07 16:25 | PN ---
Subjective Date of Service: 02/07/17 Interval History: HOSPITALIST PROGRESS NOTE Patient seen and examined at bedside. She c/o abdominal pain, distention, and nausea today. Family History: Unchanged from Admission Social History: Unchanged from Admission Past Medical History: Unchanged from Admission Objective Active Medications: Acetaminophen (Tylenol Tab*) 650 mg PO Q6H PRN PRN Reason: pain/fever Last Admin: 02/07/17 02:08 Dose: 650 mg Albuterol (Ventolin 2.5 Mg/3 Ml Neb.Barbara*) 2.5 mg INH Q2H PRN PRN Reason: SOB/WHEEZING Last Admin: 02/03/17 21:27 Dose: 2.5 mg Folic Acid (Folvite Tab*) 1 mg PO DAILY [facility] Last Admin: 02/07/17 09:40 Dose: 1 mg Heparin Sodium (Porcine) (Heparin Vial(*)) 5,000 units SUBCUT Q8HR [facility] Last Admin: 02/07/17 13:23 Dose: 5,000 units Potassium Chloride/Sodium Chloride (Ns 0.9% W/ 20 Meq Kcl 1000 Ml*) 1,000 mls @ 100 mls/hr IV PER RATE [facility] Last Admin: 02/07/17 13:12 Dose: 100 mls/hr Ketorolac Tromethamine (Toradol Inj*) 15 mg IV PUSH Q6H PRN PRN Reason: PAIN Lorazepam (Ativan Tab(*)) 0.5 mg PO BID [facility] Last Admin: 02/07/17 09:40 Dose: 0.5 mg Mometasone Furoate/Formoterol Fumar (Dulera 200/5 Mdi*) 2 puff INH BID [facility] Last Admin: 02/07/17 08:59 Dose: 2 puff Multivitamins/Minerals (Theragran/Minerals Tab*) 1 tab PO DAILY [facility] Last Admin: 02/07/17 09:40 Dose: 1 tab Nicotine Polacrilex (Nicotine Gum*) 2 mg PO Q2H PRN PRN Reason: CRAVING Last Admin: 02/07/17 13:12 Dose: 2 mg Prochlorperazine Edisylate (Compazine Inj*) 5 mg IV Q6H PRN PRN Reason: NAUSEA/VOMITING Last Admin: 02/06/17 14:12 Dose: 5 mg Quetiapine Fumarate (Seroquel Tab*) 50 mg PO BEDTIME [facility] Last Admin: 02/06/17 22:00 Dose: 50 mg Thiamine HCl (Vitamin B-1 Tab*) 100 mg PO DAILY [facility] Last Admin: 02/07/17 09:40 Dose: 100 mg Vital Signs - 8 hr 02/07/17 02/07/17 12:53 15:48 Temperature 97.6 F Pulse Rate 91 Respiratory 18 16 Rate Blood Pressure 177/89 (mmHg) O2 Sat by Pulse 98 Oximetry Oxygen Devices in Use Now: None Appearance: Elderly lady lying in bed in NAD. Eyes: No Scleral Icterus Ears/Nose/Mouth/Throat: Mucous Membranes Moist Neck: Trachea Midline Respiratory: Symmetrical Chest Expansion and Respiratory Effort, Clear to Auscultation Cardiovascular: RRR - Normal S1 and S2 Abdominal: - - Distended, NT, NG, BS+ Neurological: Alert and Oriented x 3 Result Diagrams: 02/06/17 04:59 02/07/17 08:06 Assess/Plan/Problems-Billing Assessment: Mrs. Bland is a 67yo F with PMH of ETOH abuse, COPD, HTN, seizures, anxiety/ depression, who presented to ED after a fall. - Patient Problems (1) Hypokalemia Comment: - Replete. (2) Hypomagnesemia Comment: - Replete. (3) Alcoholism Comment: - ETOH level was 341 on admission. - Has not required Ativan. D/c WAM. (4) SBO (small bowel obstruction) Comment: - SBO vs ileus. - KUB shows moderately distended loops of small bowel with air fluid levels. - NPO for now. - Surgery consult and CT abdome/pelvis. (5) COPD (chronic obstructive pulmonary disease) Comment: - Continue bronchodilators. (6) DVT prophylaxis Comment: - SQ heparin. (7) Full code status (8) Physical deconditioning Comment: - PT/OT input appreciated. - Patient would certainly benefit of PLACIDO, but adamant she'll "never go to a custodial again". - Psych evaluation appreciated - patient has capacity to refuse SNF placement. - CM to assist with help at home set up. Status and Disposition: Inpatient. Patient only want her daughter (Gay) to be updated about her condition.
--- NOTE | 2017-02-07 18:32 | CONS ---
SURGICAL CONSULTATION NOTE: DATE OF CONSULTATION: 02/07/17 ROOM: 437 at [facility]. ATTENDING SURGEON: El Perea MD CHIEF COMPLAINT: Increasing abdominal distention. HISTORY OF PRESENT ILLNESS: The patient is a 67-year-old female who was admitted to [facility] on 02/03/17 after she fell at home. She has a history of alcoholism, COPD, angina, hypertension, IBS, arthritis, seizures, anxiety, depression, PTSD and alcohol abuse. When she presented to the emergency room, she developed the new onset of vomiting and generalized abdominal pain and CAT scan of the abdomen on 02/03/17 revealed diffuse moderate ascites throughout and a normal small bowel pattern. During her hospitalization, her abdominal pain resolved. She was passing flatus and tolerating a full liquid diet as of 02/05/17. This morning, Dr. El noted increased abdominal distention and obtained an abdominal film, which revealed moderately distended loops of small bowel, possible early partial small bowel obstruction. This prompted a surgical consultation. At present, the patient denies any nausea or vomiting. She feels hungry. She passed a small amount of flatus today and a small amount of soft stool. Her abdominal distention today was significant and therefore, a repeat CAT scan of the abdomen and pelvis was ordered and has been reviewed with Dr. Perea. It revealed increased ascites, normal flow of contrast through the entire small bowel as well as into the colon and there was nothing to suggest obstruction. These results were reported to Dr. El. Dr. Perea felt that it was acceptable to feed the patient. PAST MEDICAL HISTORY: Significant for COPD, angina, hypertension, IBS, arthritis, seizures, anxiety, depression, PTSD and alcohol abuse. PAST SURGICAL HISTORY: Carotid endarterectomy, appendectomy, tonsillectomy, section x2 and tubal ligation. MEDICATIONS: Reviewed. ALLERGIES: Include GABAPENTIN, PREDNISONE, and DOXYCYCLINE. FAMILY HISTORY: Mother with a history of dementia. Father with a history of heart disease and colon cancer. SOCIAL HISTORY: She smokes a pack to a pack and a half of cigarettes daily. She has been smoking for over 40 years; she admits to drinking alcohol daily anywhere between 3 and 6 Kunal jars of alcohol. She denies any other substance abuse. REVIEW OF SYSTEMS: Constitutional: No fever or chills. She denies any significant weight change. Respiratory: No chronic cough or rhinorrhea. No sore throat. Cardiac: Denies chest pain or palpitations. Gastrointestinal: As described in history of present illness. Genitourinary: No dysuria or frequency. Review of 14 systems completed, all others negative. PHYSICAL EXAMINATION: General Survey: The patient is a 67-year-old chronically ill-appearing female, in no acute distress. Vital Signs: Temperature 97.6, blood pressure 150/61, pulse 94 and regular, respiratory rate 20, O2 saturation on room air 97%. HEENT: Head is atraumatic. Sclerae anicteric. Oral mucosa moist. Neck: Supple. No cervical lymphadenopathy. Lungs: Rhonchi at both bases. No wheezing. Heart: Regular rate and rhythm. No murmurs or rubs. Abdomen: Very protuberant, soft, tympanitic, nontender throughout. Hyperactive bowel sounds. Extremities are warm. 1+ pitting edema of the lower extremities. She moves all 4 extremities with 5/5 strength. Neurologic: Awake, alert, oriented x3. DIAGNOSTIC STUDIES AND LABORATORY DATA: Reviewed. White blood count today, 3.7. CAT scan results as described in history of present illness. IMPRESSION: Abdominal ascites most likely associated with ileus as discussed with Dr. Perea. PLAN: Discussed with Dr. El and may feed the patient and discontinue the order for the abdominal x-ray for tomorrow. TIME SPENT: Total 60 minutes with greater than half of the time [id number] with the patient obtaining history and physical, the other half spent going over the plan of care with the attending surgeon and the admitting physician. LISSETT MIRANDA NP [id number]/CPS #: [id number] [place]
[2017-02-07] MEDS: QUEtiapine TAB* 25 MG PO SCH (20:50)
[2017-02-07] MEDS: diPHENhydraMINE PO* 25 MG PO PRN (23:27)
[2017-02-08] MEDS: NS 0.9% w/ 20 Meq KCL 1000 ML* 1,000 ML IV SCH (01:36)
[2017-02-08] MEDS: Nicotine GUM* 2 MG PO PRN ×3 (01:38→22:33)
[2017-02-08] MEDS: Heparin VIAL(*) 5000 UNITS/ML VIAL (FIVE THOUSAND) SUBCUT SCH ×3 (05:33→22:31)
[2017-02-08 06:04] LABS: BUN/Creatinine Ratio 13.9 (8-20); Calcium 8.7 mg/dL (8.6-10.3); EGFR African American 231.9 (>60); EGFR Non-African American 180.3 (>60); Magnesium 1.5 mg/dL (1.9-2.7); Potassium 3.5 mmol/L (3.5-5.0)
[2017-02-08] MEDS: Mometasone/Formoter 200/5 MDI INH SCH ×2 (07:30→19:29)
--- NOTE | 2017-02-08 08:39 | RAD ---
INDICATION: Follow-up small bowel obstruction KUB April 10, 2016 COMPARISON: KUB February 07, 2017 TECHNIQUE: Erect and supine views of the abdomen are submitted. FINDINGS: Bones: There are no acute bony findings. Soft tissues: The soft tissues appear normal. The psoas margins are sharp. Bowel gas pattern: There are mildly prominent air-filled loops of small bowel in the central abdomen but these have decreased in caliber and there is increased gas within the colon. Findings are compatible resolving small bowel obstruction Calcifications: There are no abnormal calcifications. Other: None IMPRESSION: RESOLVING SMALL BOWEL OBSTRUCTION.
[2017-02-08] MEDS: Magnesium Sulfate 2 GM IV* 2 GM/50 ML BAG IVPB ONE ×2 (08:59→09:47)
[2017-02-08] MEDS: KCL 10 MEQ/50 ML IVPREMIX* 10 MEQ/50 ML BAG IV SCH ×2 (09:00→09:12)
[2017-02-08] MEDS: LORazepam TAB(*) 0.5 MG PO SCH ×2 (09:13→22:20)
[2017-02-08] MEDS: Magnesium Oxide TAB* 400 MG PO SCH (09:14)
[2017-02-08] MEDS: Multivitamins/Minerals TAB PO SCH (09:14)
[2017-02-08] MEDS: Folic Acid TAB* 1 MG PO SCH (09:14)
[2017-02-08] MEDS: Thiamine TAB* 100 MG TAB PO SCH (09:14)
--- NOTE | 2017-02-08 09:52 | PN ---
Subjective Date of Service: 02/08/17 Interval History: HOSPITALIST PROGRESS NOTE Patient seen and examined at bedside. Feels better today, abdominal pain and nausea resolved. Tolerating soft diet. Now agreeable with PLACIDO. Family History: Unchanged from Admission Social History: Unchanged from Admission Past Medical History: Unchanged from Admission Objective Active Medications: Acetaminophen (Tylenol Tab*) 650 mg PO Q6H PRN PRN Reason: pain/fever Last Admin: 02/07/17 23:27 Dose: 650 mg Albuterol (Ventolin 2.5 Mg/3 Ml Neb.Barbara*) 2.5 mg INH Q2H PRN PRN Reason: SOB/WHEEZING Last Admin: 02/03/17 21:27 Dose: 2.5 mg Diphenhydramine HCl (Benadryl Po*) 25 mg PO Q6H PRN PRN Reason: Allergy Symptoms Last Admin: 02/07/17 23:27 Dose: 25 mg Folic Acid (Folvite Tab*) 1 mg PO DAILY [facility] Last Admin: 02/08/17 09:14 Dose: 1 mg Heparin Sodium (Porcine) (Heparin Vial(*)) 5,000 units SUBCUT Q8HR [facility] Last Admin: 02/08/17 05:33 Dose: 5,000 units Ketorolac Tromethamine (Toradol Inj*) 15 mg IV PUSH Q6H PRN PRN Reason: PAIN Lorazepam (Ativan Tab(*)) 0.5 mg PO BID [facility] Last Admin: 02/08/17 09:13 Dose: 0.5 mg Magnesium Oxide (Magox 400 Tab*) 400 mg PO DAILY [facility] Last Admin: 02/08/17 09:14 Dose: 400 mg Mometasone Furoate/Formoterol Fumar (Dulera 200/5 Mdi*) 2 puff INH BID [facility] Last Admin: 02/08/17 07:30 Dose: 2 puff Multivitamins/Minerals (Theragran/Minerals Tab*) 1 tab PO DAILY [facility] Last Admin: 02/08/17 09:14 Dose: 1 tab Nicotine Polacrilex (Nicotine Gum*) 2 mg PO Q2H PRN PRN Reason: CRAVING Last Admin: 02/08/17 01:38 Dose: 2 mg Potassium Chloride (Klor Con Er Tab*) 20 meq PO Q4H [facility] Stop: 02/08/17 14:01 Prochlorperazine Edisylate (Compazine Inj*) 5 mg IV Q6H PRN PRN Reason: NAUSEA/VOMITING Last Admin: 02/06/17 14:12 Dose: 5 mg Quetiapine Fumarate (Seroquel Tab*) 50 mg PO BEDTIME [facility] Last Admin: 02/07/17 20:50 Dose: 50 mg Thiamine HCl (Vitamin B-1 Tab*) 100 mg PO DAILY [facility] Last Admin: 02/08/17 09:14 Dose: 100 mg Vital Signs - 8 hr 02/08/17 02/08/17 02/08/17 04:22 07:31 08:00 Temperature 97.8 F 98.2 F Pulse Rate 81 87 Respiratory 16 20 16 Rate Blood Pressure 127/74 119/67 (mmHg) O2 Sat by Pulse 99 98 Oximetry Oxygen Devices in Use Now: None Appearance: Elderly lady, disheveled appearance, sitting up in bed in NAD. Eyes: No Scleral Icterus Ears/Nose/Mouth/Throat: Mucous Membranes Moist Neck: Trachea Midline Respiratory: Symmetrical Chest Expansion and Respiratory Effort, Clear to Auscultation Cardiovascular: RRR - Normal S1 and S2 Abdominal: - - Soft, mild distention, +ascites, NT, BS+ Neurological: Alert and Oriented x 3, NL Muscle Strength and Tone Result Diagrams: 02/06/17 04:59 02/08/17 05:34 Assess/Plan/Problems-Billing Assessment: Mrs. Bland is a 67yo F with PMH of ETOH abuse, COPD, HTN, seizures, anxiety/ depression, who presented to ED after a fall. - Patient Problems (1) Hypokalemia Comment: - Replete. (2) Hypomagnesemia Comment: - Replete. (3) Alcoholism Comment: - ETOH level was 341 on admission. - Has not required Ativan. D/c WAM. (4) SBO (small bowel obstruction) Comment: - SBO vs ileus. - KUB shows moderately distended loops of small bowel with air fluid levels. - CT abdome/pelvis showed only ascites, but no obstructions. - Symptoms resolved at this time - continue soft diet as tolerated. (5) COPD (chronic obstructive pulmonary disease) Comment: - Continue bronchodilators. (6) DVT prophylaxis Comment: - SQ heparin. (7) Full code status (8) Physical deconditioning Comment: - PT/OT input appreciated. - Patient would certainly benefit of PLACIDO, but initially she was adamant she'd "never go to a snf again". - Psych evaluation appreciated - patient has capacity to refuse SNF placement. - Now agreeable with [facility]O in [place]. Status and Disposition: Inpatient. Patient only want her daughter (Gay) to be updated about her condition.
[2017-02-08] MEDS: Potassium Chlor TAB* 20 MEQ TAB.ER PO SCH ×2 (10:22→14:24)
[2017-02-08] MEDS: Ketorolac INJ* 15 MG/ML 1 ML VIAL IV PUSH PRN (18:03)
[2017-02-08] MEDS: Acetaminophen TAB* 325 MG PO PRN (22:22)
[2017-02-08] MEDS: QUEtiapine TAB* 25 MG PO SCH (22:22)
[2017-02-09] MEDS: Heparin VIAL(*) 5000 UNITS/ML VIAL (FIVE THOUSAND) SUBCUT SCH ×3 (05:49→21:28)
[2017-02-09 07:34] LABS: BUN/Creatinine Ratio 16.2 (8-20); Calcium 8.9 mg/dL (8.6-10.3); EGFR African American 224.7 (>60); EGFR Non-African American 174.7 (>60); Magnesium 1.5 mg/dL (1.9-2.7); Potassium 4.1 mmol/L (3.5-5.0)
[2017-02-09] MEDS: Mometasone/Formoter 200/5 MDI INH SCH ×2 (07:37→19:20)
[2017-02-09] MEDS: PROCHLORPERAZINE INJ 5 MG/ML 2 ML VIAL IV PRN (07:52)
[2017-02-09] MEDS: LORazepam TAB(*) 0.5 MG PO SCH ×2 (07:52→21:18)
[2017-02-09] MEDS: Folic Acid TAB* 1 MG PO SCH (10:09)
[2017-02-09] MEDS: Multivitamins/Minerals TAB PO SCH (10:09)
[2017-02-09] MEDS: Magnesium Oxide TAB* 400 MG PO SCH (10:09)
[2017-02-09] MEDS: Thiamine TAB* 100 MG TAB PO SCH (10:09)
[2017-02-09] MEDS: Nicotine GUM* 2 MG PO PRN (11:23)
[2017-02-09] MEDS ORDERED: Magnesium Sulf 4 GM/100 ML IV* 4,000 MG/100 ML BAG IVPB ONE (17:11)
--- NOTE | 2017-02-09 17:11 | PN ---
Subjective Date of Service: 02/09/17 Interval History: . Interviewed and examined patient at bedside; Discussed case with Dr. El ; Reviewed previous notes and radiology results; patient in better spirits today. wants to advance diet after successful breakfast --> I agreed we discussed PLACIDO and that is the plan. Family History: Unchanged from Admission Social History: Unchanged from Admission Past Medical History: Unchanged from Admission Objective Active Medications: . Acetaminophen (Tylenol Tab*) 650 mg PO Q6H PRN PRN Reason: pain/fever Last Admin: 02/08/17 22:22 Dose: 650 mg Albuterol (Ventolin 2.5 Mg/3 Ml Neb.Barbara*) 2.5 mg INH Q2H PRN PRN Reason: SOB/WHEEZING Last Admin: 02/03/17 21:27 Dose: 2.5 mg Diphenhydramine HCl (Benadryl Po*) 25 mg PO Q6H PRN PRN Reason: Allergy Symptoms Last Admin: 02/07/17 23:27 Dose: 25 mg Folic Acid (Folvite Tab*) 1 mg PO DAILY [facility] Last Admin: 02/09/17 10:09 Dose: 1 mg Heparin Sodium (Porcine) (Heparin Vial(*)) 5,000 units SUBCUT Q8HR [facility] Last Admin: 02/09/17 15:38 Dose: 5,000 units Ketorolac Tromethamine (Toradol Inj*) 15 mg IV PUSH Q6H PRN PRN Reason: PAIN Last Admin: 02/08/17 18:03 Dose: 15 mg Lorazepam (Ativan Tab(*)) 0.5 mg PO BID [facility] Last Admin: 02/09/17 07:52 Dose: 0.5 mg Magnesium Oxide (Magox 400 Tab*) 400 mg PO DAILY [facility] Last Admin: 02/09/17 10:09 Dose: 400 mg Mometasone Furoate/Formoterol Fumar (Dulera 200/5 Mdi*) 2 puff INH BID [facility] Last Admin: 02/09/17 07:37 Dose: 2 puff Multivitamins/Minerals (Theragran/Minerals Tab*) 1 tab PO DAILY [facility] Last Admin: 02/09/17 10:09 Dose: 1 tab Nicotine Polacrilex (Nicotine Gum*) 2 mg PO Q2H PRN PRN Reason: CRAVING Last Admin: 02/09/17 11:23 Dose: 2 mg Prochlorperazine Edisylate (Compazine Inj*) 5 mg IV Q6H PRN PRN Reason: NAUSEA/VOMITING Last Admin: 02/09/17 07:52 Dose: 5 mg Quetiapine Fumarate (Seroquel Tab*) 50 mg PO BEDTIME [facility] Last Admin: 02/08/17 22:22 Dose: 50 mg Thiamine HCl (Vitamin B-1 Tab*) 100 mg PO DAILY [facility] Last Admin: 02/09/17 10:09 Dose: 100 mg Vital Signs - 8 hr 02/09/17 02/09/17 10:12 15:51 Temperature 97.9 F Pulse Rate 87 Respiratory 16 16 Rate Blood Pressure 126/67 (mmHg) O2 Sat by Pulse 99 Oximetry Oxygen Devices in Use Now: None Appearance: elderly and frail; older than stated age Eyes: No Scleral Icterus Ears/Nose/Mouth/Throat: Mucous Membranes Moist Neck: NL Appearance and Movements; NL JVP Respiratory: Symmetrical Chest Expansion and Respiratory Effort Cardiovascular: NL Sounds; No Murmurs; No JVD Abdominal: NL Sounds; No Tenderness; No Distention, - - scaphoid abd. Lymphatic: No Cervical Adenopathy Extremities: No Edema Skin: No Rash or Ulcers Neurological: Alert and Oriented x 3 Lines/Tubes/Other Access: Clean, Dry and Intact Peripheral IV Nutrition: Taking PO's Result Diagrams: 02/06/17 04:59 02/09/17 06:38 Microbiology and Other Data: Microbiology 02/04/17 00:50 Stool Gross Appearance - Final Stool Assess/Plan/Problems-Billing Assessment: Mrs. Bland is a 67yo F with PMH of ETOH abuse, COPD, HTN, seizures, anxiety/ depression, who presented to ED after a fall. Current Medications: - Acetaminophen (Tylenol Tab) 650 mg PO Q6H PRN pain/fever - Albuterol (Ventolin 2.5 Mg/3 Ml Neb.Barbara) 2.5 mg INH Q2H PRN SOB/WHEEZING - Diphenhydramine HCl (Benadryl Po) 25 mg PO Q6H PRN Allergy Symptoms - Folic Acid (Folvite Tab) 1 mg PO DAILY - Heparin Sodium (Porcine) (Heparin Vial) 5,000 units SUBCUT Q8HR - Ketorolac Tromethamine (Toradol Inj*) 15 mg IV PUSH Q6H PRN PAIN - Lorazepam (Ativan Tab) 0.5 mg PO BID - Magnesium Oxide (Magox 400 Tab) 400 mg PO DAILY - Mometasone Furoate/Formoterol Fumar (Dulera 200/5 Mdi) 2 puff INH BID - Multivitamins/Minerals (Theragran/Minerals Tab) 1 tab PO DAILY - Nicotine Polacrilex (Nicotine Gum) 2 mg PO Q2H PRN CRAVING - Prochlorperazine Edisylate (Compazine Inj) 5 mg IV Q6H PRN NAUSEA/VOMITING - Quetiapine Fumarate (Seroquel Tab) 50 mg PO BEDTIME [facility] - Thiamine HCl (Vitamin B-1 Tab) 100 mg PO DAILY [facility] - Patient Problems (1) SBO (small bowel obstruction) Current Visit: Yes Status: Acute Priority: High Code(s): K56.609 - UNSP INTESTNL OBST, UNSP TO PARTIAL VERSUS COMPLETE OBST Comment: - SBO vs ileus. - KUB shows moderately distended loops of small bowel with air fluid levels. - CT abdome/pelvis showed only ascites, but no obstructions. - Symptoms resolved at this time - advancing diet as tolerated. (2) Alcoholism Current Visit: Yes Status: Chronic Priority: High Code(s): F10.20 - ALCOHOL DEPENDENCE, UNCOMPLICATED Comment: - ETOH level was 341 on admission. - Has not required Ativan. - WAM off (3) Hypokalemia Current Visit: Yes Status: Acute Priority: High Code(s): E87.6 - HYPOKALEMIA Comment: - Replete and recheck (4) Hypomagnesemia Current Visit: Yes Status: Acute Priority: High Code(s): E83.42 - HYPOMAGNESEMIA Comment: - Replete and recheck (5) Physical deconditioning Current Visit: Yes Status: Acute Code(s): R53.81 - OTHER MALAISE SNOMED Code(s): 33890477554623 Comment: - PT/OT input appreciated. - Patient would certainly benefit of PLACIDO, but initially she was adamant she'd "never go to a alf again". - Psych evaluation appreciated - patient has capacity to refuse SNF placement. - Later, agreeable with [facility]IDO in [place]...which is the plan... (6) DVT prophylaxis Current Visit: Yes Status: Acute Priority: High Code(s): [id number] - Comment: - SQ heparin. (7) Full code status Current Visit: Yes Status: Chronic Priority: High Code(s): Z78.9 - OTHER SPECIFIED HEALTH STATUS Status and Disposition: Inpatient. Patient only want her daughter (Gay) to be updated about her condition.
[2017-02-09] MEDS ORDERED: Potassium Phosphate IV* 15 MMOLE in NS 0.9% 250 ML* 250 ML IVPB ONE (17:12)
[2017-02-09] MEDS: diPHENhydraMINE PO* 25 MG PO PRN (19:52)
[2017-02-09] MEDS ORDERED: NS 0.9% 250 ML* 250 ML ONE (21:11)
[2017-02-09] MEDS: Acetaminophen TAB* 325 MG PO PRN (21:18)
[2017-02-09] MEDS: QUEtiapine TAB* 25 MG PO SCH (21:18)
[2017-02-10] MEDS: PROCHLORPERAZINE INJ 5 MG/ML 2 ML VIAL IV PRN (04:40)
[2017-02-10 05:05] LABS: Hematocrit 31 % (35-47); Hemoglobin 10.4 g/dl (12.0-16.0); Mean Corpuscular HGB Conc 34 g/dl (31-36); Mean Corpuscular Hemoglobin 39 pg (27-31); Mean Platelet Volume 10 um3 (7.4-10.4); Red Blood Count 2.63 10^6/ul (4.0-5.4); Red Cell Distribution Width 16 % (10.5-15); White Blood Count 3.8 10^3/ul (3.5-10.8)
[2017-02-10 05:19] LABS: Comments Flag Yes
[2017-02-10 05:20] LABS: Mean Corpuscular Volume 116 fL (80-97)
[2017-02-10 05:32] LABS: Albumin 2.5 g/dL (3.2-5.2); BUN/Creatinine Ratio 13.3 (8-20); Calcium 8.7 mg/dL (8.6-10.3); EGFR African American 179.3 (>60); EGFR Non-African American 139.4 (>60); Globulin 3.1 g/dL (2-4); Magnesium 2.1 mg/dL (1.9-2.7); Phosphorus 5.3 mg/dL (2.5-5.0); Potassium 4.3 mmol/L (3.5-5.0); Total Bilirubin 0.8 mg/dL (0.2-1.0); Total Protein 5.6 g/dL (6.4-8.9)
[2017-02-10] MEDS: Heparin VIAL(*) 5000 UNITS/ML VIAL (FIVE THOUSAND) SUBCUT SCH ×3 (06:08→21:07)
[2017-02-10] MEDS: Ketorolac INJ* 15 MG/ML 1 ML VIAL IV PUSH PRN (06:40)
[2017-02-10] MEDS: Mometasone/Formoter 200/5 MDI INH SCH ×2 (08:22→20:23)
[2017-02-10] MEDS: Folic Acid TAB* 1 MG PO SCH (08:28)
[2017-02-10] MEDS: Magnesium Oxide TAB* 400 MG PO SCH (08:28)
[2017-02-10] MEDS: Thiamine TAB* 100 MG TAB PO SCH (08:28)
[2017-02-10] MEDS: Multivitamins/Minerals TAB PO SCH (08:28)
[2017-02-10] MEDS: LORazepam TAB(*) 0.5 MG PO SCH ×2 (08:28→21:07)
[2017-02-10] MEDS: Nicotine GUM* 2 MG PO PRN (09:47)
[2017-02-10] MEDS ORDERED: Furosemide IV* 10 MG/ML 2 ML VIAL (20 MG) IV ONE (09:57)
--- NOTE | 2017-02-10 12:46 | PN ---
Subjective Date of Service: 02/10/17 Interval History: . no new complaints reviewed labs in detail encouraged PT/OT answered general questions about [facility]. total time at bedside was >30 minutes. total time 40 min. advancing diet well. Family History: Unchanged from Admission Social History: Unchanged from Admission Past Medical History: Unchanged from Admission Objective Active Medications: . Acetaminophen (Tylenol Tab*) 650 mg PO Q6H PRN PRN Reason: pain/fever Last Admin: 02/09/17 21:18 Dose: 650 mg Albuterol (Ventolin 2.5 Mg/3 Ml Neb.Barbara*) 2.5 mg INH Q2H PRN PRN Reason: SOB/WHEEZING Last Admin: 02/03/17 21:27 Dose: 2.5 mg Diphenhydramine HCl (Benadryl Po*) 25 mg PO Q6H PRN PRN Reason: Allergy Symptoms Last Admin: 02/09/17 19:52 Dose: 25 mg Folic Acid (Folvite Tab*) 1 mg PO DAILY [facility] Last Admin: 02/10/17 08:28 Dose: 1 mg Heparin Sodium (Porcine) (Heparin Vial(*)) 5,000 units SUBCUT Q8HR [facility] Last Admin: 02/10/17 06:08 Dose: 5,000 units Ketorolac Tromethamine (Toradol Inj*) 15 mg IV PUSH Q6H PRN PRN Reason: PAIN Last Admin: 02/10/17 06:40 Dose: 15 mg Lorazepam (Ativan Tab(*)) 0.5 mg PO BID [facility] Last Admin: 02/10/17 08:28 Dose: 0.5 mg Magnesium Oxide (Magox 400 Tab*) 400 mg PO DAILY [facility] Last Admin: 02/10/17 08:28 Dose: 400 mg Mometasone Furoate/Formoterol Fumar (Dulera 200/5 Mdi*) 2 puff INH BID [facility] Last Admin: 02/10/17 08:22 Dose: 2 puff Multivitamins/Minerals (Theragran/Minerals Tab*) 1 tab PO DAILY [facility] Last Admin: 02/10/17 08:28 Dose: 1 tab Nicotine Polacrilex (Nicotine Gum*) 2 mg PO Q2H PRN PRN Reason: CRAVING Last Admin: 02/10/17 09:47 Dose: 2 mg Prochlorperazine Edisylate (Compazine Inj*) 5 mg IV Q6H PRN PRN Reason: NAUSEA/VOMITING Last Admin: 02/10/17 04:40 Dose: 5 mg Quetiapine Fumarate (Seroquel Tab*) 50 mg PO BEDTIME [facility] Last Admin: 02/09/17 21:18 Dose: 50 mg Thiamine HCl (Vitamin B-1 Tab*) 100 mg PO DAILY [facility] Last Admin: 02/10/17 08:28 Dose: 100 mg . Vital Signs - 8 hr 02/10/17 02/10/17 02/10/17 07:25 08:13 08:24 Temperature 98.1 F Pulse Rate 78 75 Respiratory 16 16 19 Rate Blood Pressure 87/61 (mmHg) O2 Sat by Pulse 98 95 Oximetry 02/10/17 02/10/17 02/10/17 08:25 08:28 09:25 Temperature Pulse Rate 75 81 Respiratory 19 18 Rate Blood Pressure 92/66 (mmHg) O2 Sat by Pulse 97 Oximetry 02/10/17 02/10/17 09:30 10:40 Temperature Pulse Rate 86 Respiratory 16 Rate Blood Pressure 125/57 (mmHg) O2 Sat by Pulse Oximetry Oxygen Devices in Use Now: None Appearance: NAD Ears/Nose/Mouth/Throat: Clear Oropharnyx Neck: NL Appearance and Movements; NL JVP Respiratory: Symmetrical Chest Expansion and Respiratory Effort Cardiovascular: NL Sounds; No Murmurs; No JVD Abdominal: NL Sounds; No Tenderness; No Distention Lymphatic: No Cervical Adenopathy Extremities: No Edema Skin: No Rash or Ulcers Neurological: Alert and Oriented x 3 Lines/Tubes/Other Access: Clean, Dry and Intact Peripheral IV Nutrition: Taking PO's Result Diagrams: 02/10/17 04:55 02/10/17 04:55 Additional Lab and Data: . Microbiology and Other Data: Microbiology 02/04/17 00:50 Stool Gross Appearance - Final Stool Assess/Plan/Problems-Billing Assessment: Mrs. Bland is a 67yo F with PMH of ETOH abuse, COPD, HTN, seizures, anxiety/ depression, who presented to ED after a fall. Current Medications: - Acetaminophen (Tylenol Tab) 650 mg PO Q6H PRN pain/fever - Albuterol (Ventolin 2.5 Mg/3 Ml Neb.Barbara) 2.5 mg INH Q2H PRN SOB/WHEEZING - Diphenhydramine HCl (Benadryl Po) 25 mg PO Q6H PRN Allergy Symptoms - Folic Acid (Folvite Tab) 1 mg PO DAILY - Heparin Sodium (Porcine) (Heparin Vial) 5,000 units SUBCUT Q8HR - Ketorolac Tromethamine (Toradol Inj*) 15 mg IV PUSH Q6H PRN PAIN - Lorazepam (Ativan Tab) 0.5 mg PO BID - Magnesium Oxide (Magox 400 Tab) 400 mg PO DAILY - Mometasone Furoate/Formoterol Fumar (Dulera 200/5 Mdi) 2 puff INH BID - Multivitamins/Minerals (Theragran/Minerals Tab) 1 tab PO DAILY - Nicotine Polacrilex (Nicotine Gum) 2 mg PO Q2H PRN CRAVING - Prochlorperazine Edisylate (Compazine Inj) 5 mg IV Q6H PRN NAUSEA/VOMITING - Quetiapine Fumarate (Seroquel Tab) 50 mg PO BEDTIME [facility] - Thiamine HCl (Vitamin B-1 Tab) 100 mg PO DAILY [facility] - Patient Problems (1) SBO (small bowel obstruction) Current Visit: Yes Status: Acute Priority: High Code(s): K56.609 - UNSP INTESTNL OBST, UNSP TO PARTIAL VERSUS COMPLETE OBST Comment: - SBO vs ileus. - KUB shows moderately distended loops of small bowel with air fluid levels. - CT abdome/pelvis showed only ascites, but no obstructions. - Symptoms resolved at this time - advancing diet as tolerated (to regular) (2) Alcoholism Current Visit: Yes Status: Chronic Priority: High Code(s): F10.20 - ALCOHOL DEPENDENCE, UNCOMPLICATED Comment: - ETOH level was 341 on admission. - Has not required Ativan. - WAM off (3) Hypokalemia Current Visit: Yes Status: Acute Priority: High Code(s): E87.6 - HYPOKALEMIA Comment: - Replete and recheck (4) Hypomagnesemia Current Visit: Yes Status: Acute Priority: High Code(s): E83.42 - HYPOMAGNESEMIA Comment: - Replete and recheck (5) Physical deconditioning Current Visit: Yes Status: Acute Code(s): R53.81 - OTHER MALAISE SNOMED Code(s): 81228741287645 Comment: - PT/OT input appreciated. - Patient would certainly benefit of [facility], but initially she was adamant she'd "never go to a halfway again". - Psych evaluation appreciated - patient has capacity to refuse SNF placement. - Later, agreeable with [facility] in [place]...which is the plan... (6) DVT prophylaxis Current Visit: Yes Status: Acute Priority: High Code(s): ONN6894 - Comment: - SQ heparin. (7) Full code status Current Visit: Yes Status: Chronic Priority: High Code(s): Z78.9 - OTHER SPECIFIED HEALTH STATUS Status and Disposition: . Inpatient. Patient only wants her daughter (Gay) to be updated about her condition.
[2017-02-10] MEDS: diPHENhydraMINE PO* 25 MG PO PRN ×2 (13:49→23:27)
[2017-02-10] MEDS: QUEtiapine TAB* 25 MG PO SCH (21:07)
[2017-02-10] MEDS: Acetaminophen TAB* 325 MG PO PRN (21:12)
[2017-02-11] MEDS: Heparin VIAL(*) 5000 UNITS/ML VIAL (FIVE THOUSAND) SUBCUT SCH ×2 (05:24→13:26)
[2017-02-11] MEDS: Mometasone/Formoter 200/5 MDI INH SCH (08:10)
[2017-02-11] MEDS: Folic Acid TAB* 1 MG PO SCH (08:34)
[2017-02-11] MEDS: Magnesium Oxide TAB* 400 MG PO SCH (08:34)
[2017-02-11] MEDS: Multivitamins/Minerals TAB PO SCH (08:34)
[2017-02-11] MEDS: LORazepam TAB(*) 0.5 MG PO SCH (08:35)
[2017-02-11] MEDS: Thiamine TAB* 100 MG TAB PO SCH (08:35)
[2017-02-11] MEDS: Acetaminophen TAB* 325 MG PO PRN (08:45)
[2017-02-11] MEDS: Nicotine GUM* 2 MG PO PRN (08:45)
[2017-02-11 12:02] VITALS: BP 132/63
--- NOTE | 2017-02-13 09:37 | PN ---
Hospitalist Progress Note Date of Service: 02/11/17 . HOSPITALIST DISCHARGE NOTE: See dc instructions and summary by me. Patient stable for dc dc instructions reviewed with the patient at the bedside. DC patient home today.
--- NOTE | 2017-02-13 14:25 | DS ---
CC: Dorcas Chan NP. DISCHARGE SUMMARY: DATE OF ADMISSION: 02/03/17 DATE OF DISCHARGE: 02/11/17 STATUS DURING HOSPITALIZATION: Inpatient. PRIMARY CARE PROVIDER: Dorcas Chan NP. PRINCIPAL DISCHARGE DIAGNOSES: 1. Alcohol intoxication and abuse, with multiple electrolyte deficiencies and chronic malnutrition, status post fall necessitating admission into the hospital. 2. Intestinal pseudoobstruction, resolved, thought secondary to acute alcoholic intoxication and med ical illnesses including electrolyte abnormalities. 3. Cirrhotic liver disease with large, but stable ascites. 4. Chronic depression. 5. Questioned medical decision making capacity, deemed able to make medical decisions, but also deem ed to have poor insight into her medical needs (by psychiatry consult service). SECONDARY DIAGNOSES: 1. Chronic obstructive pulmonary disease. 2. History of angina. 3. Hypertension. 4. Irritable bowel syndrome. 5. Arthritis. 6. Seizure disorder. 7. Anxiety/depression. 8. Posttraumatic stress disorder. 9. History of an ongoing alcohol abuse. DISCHARGE MEDICATION REGIMEN: 1. Albuterol inhaler 2 puffs inhaled every 4 hours as needed for shortness of breath. 2. Albuterol/ipratropium nebulizer 1 inhalation every 4 hours as needed for cough/shortness of breat h. 3. Cholecalciferol/vitamin D3, 2000 units by mouth daily. 4. Folic acid 1 mg by mouth daily. 5. Ativan 0.5 to 1 mg by mouth twice daily p.r.n. anxiety. 6. Dulera (mometasone/formoterol) 200/5 strength - 2 puffs inhaled twice daily. 7. Multivitamin with minerals 1 tab by mouth twice daily. 8. Seroquel 50 to 100 mg by mouth at bedtime. 9. Thiamine/vitamin B1, 100 mg by mouth daily. 10. Spiriva 1 capsule inhaled daily. HISTORY OF PRESENT ILLNESS AND HOSPITAL COURSE: Please see the admission history and physical by Mumtaz Robertson NP., under the supervision of Dr. Patrizia Reyes on 02/03/17. Also see the inpatient gen eral surgery consultation by Mag See NP, as well as Lore Cardoso NP. In general, Ms. Sonny del cid is a 67-year-old female patient with a history as stated above, who came to the hospital because of a fall. The patient had called 911 after falling several times in the last week. The patient was fo und to have multiple electrolyte abnormalities. The patient was drinking massive amounts of alcohol, specifically 3 to 4 osei jars of alcohol, sometimes up to 6, and was smoking cigarettes frequently. The patient was having abdominal discomfort and complaints of nausea and vomiting. She had a KUB t hat demonstrated an obstructive pattern. Surgery consult was obtained. There was no indication for surgery, as this was thought to be intestinal pseudoobstruction. The patient resolved with fluid supp ort and slowly advanced on her diet. I note her initial alcohol was 341, simply to demonstrate the m agnitude of her alcohol intake. We struggled with electrolytes during this hospitalization with hypo kalemia and hypomagnesemia that was profound and prolonged. She was hyponatremic that was improving by the time of her discharge. She had an elevated INR, but not to a very high level (1.18). She had expected anemia and thrombocytopenia secondary to the direct effect of alcohol on her bone marrow, m ost likely. The patient worked with Physical Therapy and Nursing to regain strength. She initially a greed to placement in a rehabilitation facility, which would also promote ongoing abstinence. The pa tient continued to improve during the hospitalization and got to the point where she was too function al to justify rehabilitation placement. Accordingly the patient is being discharged. I had multiple conversations with the patient about the support that she would need to succeed. She does have an eye care caser (Managed Medicaid in [facility]) as well as a [employer] coor dinator and other friends in her community, including from her sabianist, who will support her and ensur e she gets to medical appointments and maintain sobriety, and so on. Ms. Bland is in good spirits at the point of discharge. She certainly needs ongoing counseling and so [facility] supports. The patient seems motivated to succeed. She has access to all of the medications lis harley above. I have not intended any changes at this point. We had several significant and serious co nversations about complete alcohol abstinence and she is going to give this her best effort. TIME SPENT: Total time taken to discharge Ms. Bland was 50 minutes, greater than half that time was s pent at the bedside doing bedside education and coordination of care. Return to ED instructions were carefully presented to the patient, to come back if there is any worse angelique symptoms including but not limited shortness of breath, chest pain, lightheadedness, dangerous i ntoxication or other concerning symptoms. CONDITION AT DISCHARGE: Stable. [id number]/[facility] #: [id number]
== END 2017-02-11 15:55 | disposition home or self-care (01) | DRG 897 ==
LOC: ED 19:25 → MEDTELE 02-03 11:39
PROVIDERS: ADMIT Internal Medicine; ATTEND Internal Medicine
DX: F10.239 Alcohol dependence with withdrawal, unspecified (principal); F10.229 Alcohol dependence with intoxication, unspecified; E87.2 Acidosis; K56.609 Unspecified intestinal obstruction, unspecified as to partial versus complete obstruction; R18.8 Other ascites; E83.42 Hypomagnesemia; K56.7 Ileus, unspecified; J44.9 Chronic obstructive pulmonary disease, unspecified; F17.210 Nicotine dependence, cigarettes, uncomplicated; F32.9 Major depressive disorder, single episode, unspecified; I10 Essential (primary) hypertension; K21.9 Gastro-esophageal reflux disease without esophagitis; K58.9 Irritable bowel syndrome, unspecified; M19.90 Unspecified osteoarthritis, unspecified site; F41.0 Panic disorder [episodic paroxysmal anxiety]; E78.00 Pure hypercholesterolemia, unspecified; F43.10 Post-traumatic stress disorder, unspecified; E87.6 Hypokalemia; Y90.8 Blood alcohol level of 240 mg/100 ml or more; Z88.1 Allergy status to other antibiotic agents; Z88.8 Allergy status to other drugs, medicaments and biological substances; Z88.4 Allergy status to anesthetic agent; Z98.51 Tubal ligation status; Z91.5 Personal history of self-harm; Z82.49 Family history of ischemic heart disease and other diseases of the circulatory system; Z81.1 Family history of alcohol abuse and dependence; Z80.0 Family history of malignant neoplasm of digestive organs
CPT/HCPCS: 36415; 70450; 71020; 72125; 74000; 74020; 74177; 80048; 80053; 80320; 81003; 81015; 82140; 82272; 83605; 83690; 83735; 84100; 84443; 84484; 85025; 85610; 85652; 86140; 87045; 87046; 87077; 87086; 87177; 87209; 87328; 87329; 87425; 87449; 87899; 93005; 94640; 94760; 99406; A9270-GY; G0480; J0780; J1644; J1885; J1940; J2060; J2405; J3411; J3475; J3480; Q9967

== ENCOUNTER 2017-04-15 19:44 | Emergency (ER) | payer MEDICARE, MEDICAID ==
[2017-04-15] MEDS ORDERED: NS 0.9% 1000 ML* 1,000 ML IV ONE (20:12)
--- NOTE | 2017-04-15 20:36 | RAD ---
INDICATION: Intracranial injury COMPARISON: CT brain February 03, 2017 TECHNIQUE: Noncontrast axial source images were acquired from the skull base to the vertex. FINDINGS: Ventricles/sulci: The ventricles and cisterns are normal in size and configuration for age. There mild involutional changes. Brain parenchyma: There is no focal parenchymal finding, evidence of intracranial mass, or intracranial mass effect. Intracranial hemorrhage:None. Extra-axial spaces: There are no abnormal extra axial fluid collections or evidence of extra-axial mass. Calvarium: There is no calvarial fracture or other calvarial abnormality. Scalp: There is no evidence of scalp or extracalvarial soft tissue abnormality. Paranasal sinuses/mastoid: The paranasal sinuses and mastoid air cells are clear. Other: None. IMPRESSION: No acute intracranial findings
[2017-04-15 20:49] LABS: Urine Appearance Clear; Urine Blood 1+ (Negative); Urine Color Straw; Urine Ketones Negative (Negative); Urine Protein Negative (Negative); Urine Specific Gravity 1.004 (1.010-1.030); Urine Urobilinogen Negative (Negative)
--- NOTE | 2017-04-15 20:49 | RAD ---
INDICATION: Cough COMPARISON: February 02, 2017 TECHNIQUE: An AP seated portable view obtained at 2034 hours is submitted. FINDINGS: Bones/Soft Tissues: There are no acute bony findings. There is a scoliotic deformity Cardiomediastinal: The cardiomediastinal silhouette is normal. Lungs: There are no acute infiltrates. Pleura: There are no pleural effusions. Other: None IMPRESSION: NO ACTIVE DISEASE OR INTERVAL CHANGE
[2017-04-15 20:54] LABS: ABS Basophils 0.1 10^3/ul (0-0.2); ABS Eosinophils 0.1 10^3/ul (0-0.6); ABS Lymphocytes 1.8 10^3/ul (1.0-4.8); ABS Monocytes 0.3 10^3/ul (0-0.8); ABS Neutrophils 1.9 10^3/ul (1.5-7.7); ABS Nucleated RBC 0 10^3/ul; Eosinophil % 1.7 % (0-6); Hematocrit 43 % (35-47); Hemoglobin 14.8 g/dl (12.0-16.0); Lymphocyte % 43.3 % (25-47); Mean Corpuscular HGB Conc 35 g/dl (31-36); Mean Corpuscular Hemoglobin 37 pg (27-31); Mean Corpuscular Volume 106 fL (80-97); Mean Platelet Volume 8 um3 (7.4-10.4); Nucleated Red Blood Cells % 0; Platelet Count 133 10^3/ul (150-450); Red Blood Count 4.06 10^6/ul (4.0-5.4); Red Cell Distribution Width 19 % (10.5-15); White Blood Count 4.1 10^3/ul (3.5-10.8)
[2017-04-15 21:13] LABS: EGFR Non-African American 159.7 (>60)
[2017-04-15 21:23] LABS: INR 1.08 (0.77-1.02)
--- NOTE | 2017-04-16 02:16 | ED ---
Donna Juárez Julia, scribed for Wallace Nettles MD on 04/15/17 at 2012 . Syncope/Near Syncope - HPI Summary HPI Summary: This patient is a 67 year old F [place] [facility] to a fall out of bed that resulted in LOC and L posterior head pain. Patient states she sat up in bed, fell out onto the ground with a blanket and had LOC when hitting the floor. Patient reports abdominal pain. Patient denies vomiting. Patient has a history of alcoholism. She states she only had one drink today. - History Of Current Complaint Time Seen by Provider: 04/15/17 19:49 Hx Obtained From: Patient Onset/Duration: Sudden Onset Context: Unwitnessed, Loss Of Consciousness Activity At Onset: Other - sat up in bed Associated Head Trauma: No Aggravating Factor(s): Other - alcohol consumption Associated Signs And Symptoms: Other - abdominal pain - Allergies/Home Medications Allergies/Adverse Reactions: Allergies Allergy/AdvReac Type Severity Reaction Status Date / Time MS Gabapentin Allergy Intermediate Swelling Verified 04/15/17 20:59 [From Neurontin] MS Prednisone [Prednisone] Allergy Intermediate Hives Verified 04/15/17 20:59 MS Doxycycline [Doxycycline] Allergy Mild Swelling Verified 04/15/17 20:59 doxycycline Allergy Swelling Verified 04/15/17 20:59 gabapentin Allergy Swelling Verified 04/15/17 20:59 prednisone Allergy Hives Verified 04/15/17 20:59 Home Medications: Home Medications Albuterol inh POWDER (NF) [Proair Respiclick] 2 puff INH Q4HR PRN 04/15/17 [ History Confirmed 04/15/17] Furosemide TAB* [Lasix TAB*] 40 mg PO DAILY 04/15/17 [History Confirmed 04/15/17 ] Potassium Chlor TAB* [Klor Con ER TAB*] 20 meq PO BID 04/15/17 [History Confirmed 04/15/17] Ranitidine TAB (NF) [Zantac TAB (NF)] 150 mg PO BID 04/15/17 [History Confirmed 04/15/17] PMH/Surg Hx/FS Hx/Imm Hx Endocrine/Hematology History: Reports: Hx Anemia Denies: Hx Anticoagulant Therapy, Hx Blood Disorders, Hx Blood Transfusions, Hx Bone Marrow Disease, Hx Diabetes, Hx Systemic Lupus Erythematosus, Hx Sickle Cell Disease, Hx Thyroid Disease, Hx Unexplained Bleeding, Other Endocrine/ Hematological Disorders Cardiovascular History: Reports: Hx Angina, Hx Hypercholesterolemia, Hx Hypertension, Other Cardiovascular Problems/Disorders - carotid endarterectomy; hx of murmur Denies: Hx Aneurysm, Hx Angioplasty, Hx Auto Implanted Cardiovert Defib, Hx Cardiac Arrest, Hx Cardiomegaly, Hx Congenital Heart Disease, Hx Congestive Heart Failure, Hx Coronary Artery Disease, Hx Deep Vein Thrombosis, Hx Embolism , Hx Hypotension, Hx Pacemaker/ICD, Hx Peripheral Vascular Disease, Hx Rheumatic Fever, Hx Syncope, Hx Valvular Heart Disease Respiratory History: Reports: Hx Chronic Bronchitis, Hx Chronic Obstructive Pulmonary Disease (COPD), Hx Pneumonia, Other Respiratory Problems/Disorders - SMOKER Denies: Hx Asthma, Hx Cystic Fibrosis, Hx Lung Cancer, Hx Pleural Effusion, Hx Pulmonary Edema, Hx Pulmonary Embolism, Hx Seasonal Allergies, Hx Sleep Apnea GI History: Reports: Hx Gastroesophageal Reflux Disease, Hx Irritable Bowel, Hx Ulcer, Other GI Disorders - adhesions Denies: Hx Cirrhosis, Hx Crohn's Disease, Hx Diverticulosis, Hx Gall Bladder Disease, Hx Gastrointestinal Bleed, Hx Hiatal Hernia, Hx Jaundice, Hx Obstructive Bowel, Hx Ileostomy, Hx Pyloric Stenosis History: Reports: Other Problems/Disorders - hx of UTI Denies: Hx Acute Renal Failure, Hx Benign Prostatic Hyperplasia, Hx Chronic Renal Failure, Hx Dialysis, Hx Kidney Infection, Hx Kidney Stones, Hx Renal Disease Musculoskeletal History: Reports: Hx Arthritis - osteo arthritis, Hx Orthopedic Injury - broken fingers, Other Musculoskeletal History - Past injury to R hand. Denies: Hx Back Problems, Hx Bursitis, Hx Congenital Bone Abnormalities, Hx Fibromyalgia, Hx Gout, Hx Osteoporosis, Hx Scoliosis, Hx Tendonitis Sensory History: Reports: Hx Contacts or Glasses - doesn't wear them though, Hx Vision Problem, Other Sensory Impairments - floaters Denies: Hx Cataracts, Hx Eye Injury, Hx Eye Prosthesis, Hx Glaucoma, Hx Macular Degeneration, Hx Deafness, Hx Hearing Aid, Hx Hearing Problem Opthamlomology History: Reports: Hx Contacts or Glasses - doesn't wear them though, Hx Vision Problem, Other Sensory Impairments - floaters Denies: Hx Cataracts, Hx Eye Injury, Hx Eye Prosthesis, Hx Glaucoma, Hx Macular Degeneration Neurological History: Reports: Hx Headaches, Hx Seizures Denies: Hx Dementia, Hx Developmental Delay, Hx Migraine, Hx Spinal Cord Injury, Hx Transient Ischemic Attacks (TIA), Other Neuro Impairments/Disorders Psychiatric History: Reports: Hx Anxiety, Hx Depression, Hx Panic Disorder - PTSD, Hx Post Traumatic Stress Disorder, Hx Inpatient Treatment, Hx Community Mental Health Tx, Hx Suicide Attempt, Hx Substance Abuse - ETOH, Other Psychiatric Issues/Disorders Denies: Hx Attention Deficit Hyperactivity Disorder, Hx Eating Disorder, Hx Schizophrenia, Hx Bipolar Disorder, Hx of Violent Episodes Against Others - Surgical History Surgery Procedure, Year, and Place: TONSILECTOMY ; APPENDECTOMY; X2 ; TUBAL LIGATION; CAROTID ENDERECTOMY (NO STENTINGS) Hx Anesthesia Reactions: Yes - ETHER CAUSED VOMITING - Immunization History Date of Tetanus Vaccine: PT STATES UNSURE Date of Influenza Vaccine: NONE Infectious Disease History: Denies: Hx Clostridium Difficile, Hx Hepatitis, Hx Human Immunodeficiency Virus (HIV), Hx Shingles, Hx Tuberculosis - Family History Known Family History: Positive: Cardiac Disease - Father, Other - father - colon ca, h/o ETOH abuse; mom- alzheimer's dz - Social History Alcohol Use: Daily Alcohol Amount: 5+ glasses 5-6x wk Hx Substance Use: No Substance Use Type: Reports: None Substance Use Comment - Amount & Last Used: pt aware of mental & physical risks of etoh, not willing/ready to change Hx Tobacco Use: Yes Smoking Status (MU): Heavy Every Day Tobacco Smoker Type: Cigarettes Have You Smoked in the Last Year: Yes Review of Systems Positive: Abdominal Pain. Negative: Vomiting Positive: Headache - L posterior head pain All Other Systems Reviewed And Are Negative: Yes Physical Exam - Summary Physical Exam Summary: Appearance: Well appearing, no pain distress Skin: warm, dry, reflects adequate perfusion, no telangiectasia of skin Head/face: normal, no bruising hematoma or trauma Eyes: EOMI, SIMBA ENT: normal Neck: supple, non-tender, no tenderness with ROM Respiratory: breath sounds present, scattered wheezes Cardiovascular: RRR, pulses symmetrical Abdomen: non-tender, protuberent Bowel: present Musculoskeletal: strength/ROM intact, tar stained finger nails Neuro: normal, sensory motor intact, A&Ox3, no neurological deficits. Speech clear. Some behavioral change after initial exam -- beligerent with nurse Triage Information Reviewed: Yes Vital Signs On Initial Exam: Initial Vitals Temp Pulse Resp BP Pulse Ox 36.9 C 92 18 121/96 94 04/15/17 20:04 04/15/17 20:04 04/15/17 20:04 04/15/17 20:04 04/15/17 20:04 Vital Signs Reviewed: Yes Diagnostics - Vital Signs Vital Signs Temp Pulse Resp BP Pulse Ox 04/15/17 20:32 106/74 04/15/17 20:10 93 93 04/15/17 20:08 121/96 04/15/17 20:04 36.9 C 92 18 121/96 94 - Laboratory Lab Results: Lab Results 04/15/17 04/15/17 04/15/17 Range/Units 20:33 20:39 20:39 WBC 4.1 (3.5-10.8) 10^3/ul RBC 4.06 (4.0-5.4) 10^6/ul Hgb 14.8 (12.0-16.0) g/dl Hct 43 (35-47) % MCV 106 H (80-97) fL MCH 37 H (27-31) pg MCHC 35 (31-36) g/dl RDW 19 H (10.5-15) % Plt Count 133 L (150-450) 10^3/ul MPV 8 (7.4-10.4) um3 Neut % (Auto) 45.5 (38-83) % Lymph % (Auto) 43.3 (25-47) % [place] % (Auto) 8.1 (1-9) % Eos % (Auto) 1.7 (0-6) % Baso % (Auto) 1.4 (0-2) % Absolute Neuts (auto) 1.9 (1.5-7.7) 10^3/ul Absolute Lymphs (auto) 1.8 (1.0-4.8) 10^3/ul Absolute Monos (auto) 0.3 (0-0.8) 10^3/ul Absolute Eos (auto) 0.1 (0-0.6) 10^3/ul Absolute Basos (auto) 0.1 (0-0.2) 10^3/ul Absolute Nucleated RBC 0 10^3/ul Nucleated RBC % 0 INR (Anticoag Therapy) 1.08 H (0.77-1.02) APTT 38.4 H (26.0-36.3) seconds Sodium (133-145) mmol/L Potassium (3.5-5.0) mmol/L Chloride (101-111) mmol/L Carbon Dioxide (22-32) mmol/L Anion Gap (2-11) mmol/L BUN (6-24) mg/dL Creatinine (0.51-0.95) mg/dL Est GFR ( Amer) (>60) Est GFR (Non-Af Amer) (>60) BUN/Creatinine Ratio (8-20) Glucose (70-100) mg/dL Calcium (8.6-10.3) mg/dL Total Bilirubin (0.2-1.0) mg/dL AST (13-39) U/L ALT (7-52) U/L Alkaline Phosphatase (34-104) U/L Ammonia (16-53) mol/L Total Protein (6.4-8.9) g/dL Albumin (3.2-5.2) g/dL Globulin (2-4) g/dL Albumin/Globulin Ratio (1-3) Urine Color Straw Urine Appearance Clear Urine pH 7.0 (5-9) Ur Specific [place] 1.004 L (1.010-1.030) Urine Protein Negative (Negative) Urine Ketones Negative (Negative) Urine Blood 1+ H (Negative) Urine Nitrate Negative (Negative) Urine Bilirubin Negative (Negative) Urine Urobilinogen Negative (Negative) Ur Leukocyte Esterase Trace H (Negative) Urine WBC (Auto) 1+(6-10/hpf) H (Absent) Urine RBC (Auto) Absent (Absent) Ur Squamous Epith Cells Present H (Absent) Urine Bacteria Absent (Absent) Urine Glucose Negative (Negative) Serum Alcohol (<10) mg/dL 04/15/17 04/15/17 Range/Units 20:39 20:39 WBC (3.5-10.8) 10^3/ul RBC (4.0-5.4) 10^6/ul Hgb (12.0-16.0) g/dl Hct (35-47) % MCV (80-97) fL MCH (27-31) pg MCHC (31-36) g/dl RDW (10.5-15) % Plt Count (150-450) 10^3/ul MPV (7.4-10.4) um3 Neut % (Auto) (38-83) % Lymph % (Auto) (25-47) % [place] % (Auto) (1-9) % Eos % (Auto) (0-6) % Baso % (Auto) (0-2) % Absolute Neuts (auto) (1.5-7.7) 10^3/ul Absolute Lymphs (auto) (1.0-4.8) 10^3/ul Absolute Monos (auto) (0-0.8) 10^3/ul Absolute Eos (auto) (0-0.6) 10^3/ul Absolute Basos (auto) (0-0.2) 10^3/ul Absolute Nucleated RBC 10^3/ul Nucleated RBC % INR (Anticoag Therapy) (0.77-1.02) APTT (26.0-36.3) seconds Sodium 137 (133-145) mmol/L Potassium 3.7 (3.5-5.0) mmol/L Chloride 102 (101-111) mmol/L Carbon Dioxide 29 (22-32) mmol/L Anion Gap 6 (2-11) mmol/L BUN 4 L (6-24) mg/dL Creatinine 0.40 L (0.51-0.95) mg/dL Est GFR ( Amer) 205.4 (>60) Est GFR (Non-Af Amer) 159.7 (>60) BUN/Creatinine Ratio 10.0 (8-20) Glucose 82 (70-100) mg/dL Calcium 9.7 (8.6-10.3) mg/dL Total Bilirubin 0.80 (0.2-1.0) mg/dL AST 24 (13-39) U/L ALT 13 (7-52) U/L Alkaline Phosphatase 81 (34-104) U/L Ammonia 58 H (16-53) mol/L Total Protein 7.0 (6.4-8.9) g/dL Albumin 3.8 (3.2-5.2) g/dL Globulin 3.2 (2-4) g/dL Albumin/Globulin Ratio 1.2 (1-3) Urine Color Urine Appearance Urine pH (5-9) Ur Specific [place] (1.010-1.030) Urine Protein (Negative) Urine Ketones (Negative) Urine Blood (Negative) Urine Nitrate (Negative) Urine Bilirubin (Negative) Urine Urobilinogen (Negative) Ur Leukocyte Esterase (Negative) Urine WBC (Auto) (Absent) Urine RBC (Auto) (Absent) Ur Squamous Epith Cells (Absent) Urine Bacteria (Absent) Urine Glucose (Negative) Serum Alcohol 283 H (<10) mg/dL Result Diagrams: 04/15/17 20:39 04/15/17 20:39 Lab Statement: Any lab studies that have been ordered have been reviewed, and results considered in the medical decision making process. - Radiology CXR Radiology Interpretation Completed By: Radiologist - NO ACTIVE DISEASE OR INTERVAL CHANGE. ED Physician has reviewed this report. - CT Brain CT Interpretation Completed By: Radiologist - No acute intracranial findings. ED Physician has reviewed this report - Additional Comments Diagnostic Additional Comments: Bedside US reveals hepatomegaly without asities,gallbladder and R kidney look normal. Re-Evaluation - Re-Evaluation 1 Re-Evaluation Time: 22:52 Change: Improved - Pt was beligerent earlier and is now sleeping comfortablly Course/Dx Course Of Treatment: Pt found to be quite intoxicated, likely relating to her ataxia and fall. She grew beligerent but then calmed. She was observed in the ED for many hours until she sobered. She was up, moving about with clear speech and steady gait. She showed no evidence for encephalopathy. Ammonia is slightly elevated, but there is no baseline comparison. Given no encephalopathy and just outside of nl range we will not given lactulose etc. We discussed her drinking and she expresses no desire to quit. Resources were provided. She states her doctor follows her liver and that she recently had an US of the liver --- states is was "fatty." - Diagnoses Differential Diagnosis/HQI/PQRI: Positive: Other - head injury; encephalopathy; syncope vs fall Provider Diagnoses: Closed head injury with brief loss of consciousness, Alcoholism, Alcohol intoxication Discharge - Discharge Plan Condition: Good Disposition: HOME Patient Education Materials: Head Injury (ED), Abuse of Alcohol (ED) Referrals: Dorcas Chan, TYPING OFFICE WORKER [Primary Care Provider] - Additional Instructions: Do not drink to excess. This puts you at risk of falling and worsening your liver function. A list of resources to help you stop drinking was provided. Return if worse, persistent falls, confusion, new symptoms or other concerns as discussed. Call your doctor first thing in the morning to follow up. The documentation as recorded by the Donna juan Julia accurately reflects the service I personally performed and the decisions made by me, Mallika Nettlesk, MD.
[2017-04-16 02:25] VITALS: BP 132/82
== END 2017-04-16 01:50 | disposition home or self-care (01) ==
LOC: ED 19:44
DX: S06.9X1A Unspecified intracranial injury with loss of consciousness of 30 minutes or less, initial encounter (principal); R10.9 Unspecified abdominal pain; R51 Headache; F17.210 Nicotine dependence, cigarettes, uncomplicated; W06.XXXA Fall from bed, initial encounter; Y92.9 Unspecified place or not applicable; Z86.79 Personal history of other diseases of the circulatory system; F10.229 Alcohol dependence with intoxication, unspecified; Y90.8 Blood alcohol level of 240 mg/100 ml or more
CPT/HCPCS: 36415; 70450; 71045; 80053; 80320; 81003; 81015; 82140; 85025; 85610; 85730; 87086; 96360; 99283; G0480

== ENCOUNTER 2017-04-19 12:54 | Inpatient (IN) | payer MEDICAID, MEDICARE ==
[2017-04-19] MEDS ORDERED: NS 0.9% 1000 ML* 1,000 ML IV ONE (13:17)
[2017-04-19] MEDS ORDERED: Thiamine IV* 100 MG, Folic Acid IV* 1 MG, Multiple Vitamin IV ADULT* 10 ML in NS 0.9% 1... IV ONE (13:21)
[2017-04-19 13:59] LABS: Hematocrit 41 % (35-47); Hemoglobin 14.2 g/dl (12.0-16.0); Mean Corpuscular HGB Conc 34 g/dl (31-36); Mean Corpuscular Hemoglobin 36 pg (27-31); Mean Corpuscular Volume 106 fL (80-97); Mean Platelet Volume 9 um3 (7.4-10.4); Red Blood Count 3.92 10^6/ul (4.0-5.4); Red Cell Distribution Width 19 % (10.5-15); White Blood Count 4.5 10^3/ul (3.5-10.8)
[2017-04-19 14:06] LABS: INR 1.21 (0.77-1.02)
[2017-04-19 14:16] LABS: EGFR Non-African American 139.4 (>60)
--- NOTE | 2017-04-19 14:54 | RAD ---
INDICATION: Fall. Intracranial injury. COMPARISON: CT brain April 15, 2017 TECHNIQUE: Noncontrast axial source images were acquired from the skull base to the vertex. FINDINGS: Ventricles/sulci: The ventricles and cisterns are normal in size and configuration for age. There are mild cortical involutional changes Brain parenchyma: There is no focal parenchymal finding, evidence of intracranial mass, or intracranial mass effect. Intracranial hemorrhage:None. Extra-axial spaces: There are no abnormal extra axial fluid collections or evidence of extra-axial mass. Calvarium: There is no calvarial fracture or other calvarial abnormality. Scalp: There is no evidence of scalp or extracalvarial soft tissue abnormality. Paranasal sinuses/mastoid: The paranasal sinuses and mastoid air cells are clear. Other: None. IMPRESSION: No acute intracranial findings. No interval changes
[2017-04-19 14:59] LABS: ABS Basophils 0.1 10^3/ul (0-0.2); ABS Eosinophils 0 10^3/ul (0-0.6); ABS Monocytes 0.4 10^3/ul (0-0.8); ABS Nucleated RBC 0 10^3/ul; Eosinophil % 0.5 % (0-6); Lymphocyte % 22.8 % (25-47); Nucleated Red Blood Cells % 0.1
--- NOTE | 2017-04-19 15:06 | RAD ---
Indication: Neck pain after fall. CT of the cervical spine was obtained in the axial plane. Sagittal and coronal reconstructed images were obtained. The skull base demonstrates no evidence of fracture. Mastoid air cells are well aerated. The C1 ring is intact. Degenerative changes of the atlantoaxial joint is noted. The vertebral bodies appear normal in height. No fracture is noted. There is disc space narrowing at C5-C6, C6-C7 and C7-T1 without fracture. Lung apices are otherwise unremarkable. The intervertebral foramen appear patent. The ribs are otherwise unremarkable. IMPRESSION: No fracture of the cervical spine is noted.
--- NOTE | 2017-04-19 16:22 | RAD ---
INDICATION: Fall COMPARISON: Chest x-ray April 15, 2017 TECHNIQUE: An AP portable view obtained at 1543 hours is submitted. FINDINGS: Bones/Soft Tissues: There are no acute bony findings. There is a prominent scoliotic deformity Cardiomediastinal: The cardiac silhouette is unchanged. Lungs: With pleural spaces and lungs are clear. Pleura: There are no pleural effusions. Other: None IMPRESSION: NO ACTIVE DISEASE OR INTERVAL CHANGE.
--- NOTE | 2017-04-19 16:23 | RAD ---
INDICATION: Fall. Right hip pain. COMPARISON: None TECHNIQUE: An AP view of the pelvis and AP views of the hip in neutral and abducted position were obtained FINDINGS: Bones: There are no acute bony findings. There is osteopenia Joint spaces: The hips articulate normally. The joint spaces are preserved. SI joints/symphysis: The SI joints and symphysis are intact. Other: None IMPRESSION: NO ACUTE PLAIN RADIOGRAPHIC ABNORMALITIES.
--- NOTE | 2017-04-19 21:34 | RAD ---
INDICATION: Fall. Hip pain. COMPARISON: Radiographs of the pelvis and right hip dated April 19, 2016 TECHNIQUE: Noncontrast axial source images were obtained from the iliac crests through the symphysis pubis. FINDINGS: There is a mildly distracted fracture from the right greater trochanter. There are no other acute CT abnormalities of the bony pelvis. There is mild symmetric narrowing about both hip joint spaces. The SI joints and symphysis appear intact The uterus and adnexa appear normal. No free fluid or adenopathy is seen. The noncontrast CT appearance of the bowel is unremarkable. There is minor subcutaneous edema about both lower extremities. There is no evidence of a superficial hematoma The bladder appears normal. IMPRESSION: SMALL, MILDLY DISTRACTED, AVULSION FRACTURE FROM THE RIGHT GREATER TROCHANTER.
--- NOTE | 2017-04-19 22:17 | ED ---
Cristiana Juárez Gabriel, scribed for Tyrel Bradford MD on 04/19/17 at 1319 . Adult Trauma - HPI Summary HPI Summary: This patient is a 67 year old F [facility]. Pt states she fell 4 times in the last 24 hours. She was unable to stand after her fall last night so she slept on the floor. When she awoke this morning and was still unable to ambulate so she called 911. The patient rates the pain 6/10 in severity. Patient reports right hip pain, inability to move RLE secondary to pain, possible LOC, neck and back pain. Patient denies ABD pain. Pt states she is drunk and she is always drunk. Her last alcoholic drink was 2 hours ago. - History of Current Complaint Chief Complaint: EDHeadInjury Stated Complaint: FALL , RIGHT HIP PAIN Time Seen by Provider: 04/19/17 13:07 Hx Obtained From: Patient Mechanism of Injury: Fall Ambulatory at the Scene: No Loss of Consciousness: unsure Onset of Pain: Immediate Onset Severity: Moderate Current Severity: Moderate Pain Intensity: 6 Pain Scale Used: 0-10 Numeric Location: Head, Neck, Back Aggravating Factor(s): Weight Bearing Associated Signs & Symptoms: Positive: Negative - ABD pain, Other: - right hip pain, inability to move RLE secondary to pain, possible LOC, neck and back pain - Additional Pertinent History Primary Care Physician: [id number] - Allergy/Home Medications Allergies/Adverse Reactions: Allergies Allergy/AdvReac Type Severity Reaction Status Date / Time doxycycline Allergy Swelling Verified 04/19/17 13:10 gabapentin Allergy Swelling Verified 04/19/17 13:10 prednisone Allergy Hives Verified 04/19/17 13:10 Home Medications: Home Medications Aspirin TAB* [Aspirin 325 MG TAB*] 650 mg PO Q6H PRN 04/19/17 [History Confirmed 04/19/17] Magnesium Oxide TAB* [MagOx 400 TAB*] 400 mg PO DAILY 04/19/17 [History Confirmed 04/19/17] PMH/Surg Hx/FS Hx/Imm Hx Endocrine/Hematology History: Reports: Hx Anemia Denies: Hx Anticoagulant Therapy, Hx Blood Disorders, Hx Blood Transfusions, Hx Bone Marrow Disease, Hx Diabetes, Hx Systemic Lupus Erythematosus, Hx Sickle Cell Disease, Hx Thyroid Disease, Hx Unexplained Bleeding, Other Endocrine/ Hematological Disorders Cardiovascular History: Reports: Hx Angina, Hx Hypercholesterolemia, Hx Hypertension, Other Cardiovascular Problems/Disorders - carotid endarterectomy; hx of murmur Denies: Hx Aneurysm, Hx Angioplasty, Hx Auto Implanted Cardiovert Defib, Hx Cardiac Arrest, Hx Cardiomegaly, Hx Congenital Heart Disease, Hx Congestive Heart Failure, Hx Coronary Artery Disease, Hx Deep Vein Thrombosis, Hx Embolism , Hx Hypotension, Hx Pacemaker/ICD, Hx Peripheral Vascular Disease, Hx Rheumatic Fever, Hx Syncope, Hx Valvular Heart Disease Respiratory History: Reports: Hx Chronic Bronchitis, Hx Chronic Obstructive Pulmonary Disease (COPD), Hx Pneumonia, Other Respiratory Problems/Disorders - SMOKER Denies: Hx Asthma, Hx Cystic Fibrosis, Hx Lung Cancer, Hx Pleural Effusion, Hx Pulmonary Edema, Hx Pulmonary Embolism, Hx Seasonal Allergies, Hx Sleep Apnea GI History: Reports: Hx Gastroesophageal Reflux Disease, Hx Irritable Bowel, Hx Ulcer, Other GI Disorders - adhesions Denies: Hx Cirrhosis, Hx Crohn's Disease, Hx Diverticulosis, Hx Gall Bladder Disease, Hx Gastrointestinal Bleed, Hx Hiatal Hernia, Hx Jaundice, Hx Obstructive Bowel, Hx Ileostomy, Hx Pyloric Stenosis History: Reports: Other Problems/Disorders - hx of UTI Denies: Hx Acute Renal Failure, Hx Benign Prostatic Hyperplasia, Hx Chronic Renal Failure, Hx Dialysis, Hx Kidney Infection, Hx Kidney Stones, Hx Renal Disease Musculoskeletal History: Reports: Hx Arthritis - osteo arthritis, Hx Orthopedic Injury - broken fingers, Other Musculoskeletal History - Past injury to R hand. Denies: Hx Back Problems, Hx Bursitis, Hx Congenital Bone Abnormalities, Hx Fibromyalgia, Hx Gout, Hx Osteoporosis, Hx Scoliosis, Hx Tendonitis Sensory History: Reports: Hx Contacts or Glasses - doesn't wear them though, Hx Vision Problem, Other Sensory Impairments - floaters Denies: Hx Cataracts, Hx Eye Injury, Hx Eye Prosthesis, Hx Glaucoma, Hx Macular Degeneration, Hx Deafness, Hx Hearing Aid, Hx Hearing Problem Opthamlomology History: Reports: Hx Contacts or Glasses - doesn't wear them though, Hx Vision Problem, Other Sensory Impairments - floaters Denies: Hx Cataracts, Hx Eye Injury, Hx Eye Prosthesis, Hx Glaucoma, Hx Macular Degeneration Neurological History: Reports: Hx Headaches, Hx Seizures Denies: Hx Dementia, Hx Developmental Delay, Hx Migraine, Hx Spinal Cord Injury, Hx Transient Ischemic Attacks (TIA), Other Neuro Impairments/Disorders Psychiatric History: Reports: Hx Anxiety, Hx Depression, Hx Panic Disorder - PTSD, Hx Post Traumatic Stress Disorder, Hx Inpatient Treatment, Hx Community Mental Health Tx, Hx Suicide Attempt, Hx Substance Abuse - ETOH, Other Psychiatric Issues/Disorders Denies: Hx Attention Deficit Hyperactivity Disorder, Hx Eating Disorder, Hx Schizophrenia, Hx Bipolar Disorder, Hx of Violent Episodes Against Others - Surgical History Surgery Procedure, Year, and Place: TONSILECTOMY ; APPENDECTOMY; X2 ; TUBAL LIGATION; CAROTID ENDERECTOMY (NO STENTINGS) Hx Anesthesia Reactions: Yes - ETHER CAUSED VOMITING - Immunization History Date of Tetanus Vaccine: PT STATES UNSURE Date of Influenza Vaccine: NONE Infectious Disease History: No Infectious Disease History: Denies: Hx Clostridium Difficile, Hx Hepatitis, Hx Human Immunodeficiency Virus (HIV), Hx Shingles, Hx Tuberculosis, Traveled Outside the [place] in Last 30 Days - Family History Known Family History: Positive: None, Cardiac Disease - Father, Other - father - colon ca, h/o ETOH abuse; mom- alzheimer's dz - Social History Alcohol Use: Daily Alcohol Amount: 5 mixed drinks (rum) daily Hx Substance Use: No Substance Use Type: Reports: None Substance Use Comment - Amount & Last Used: pt aware of mental & physical risks of etoh, not willing/ready to change Hx Tobacco Use: Yes Smoking Status (MU): Heavy Every Day Tobacco Smoker Type: Cigarettes Have You Smoked in the Last Year: Yes Review of Systems Negative: Abdominal Pain Positive: Other - neck, back, and hip pain Neurological: Other - possible LOC All Other Systems Reviewed And Are Negative: Yes Physical Exam - Summary Physical Exam Summary: VITAL SIGNS: Reviewed. GENERAL: ~Patient is a well-developed and nourished who is lying comfortable in the stretcher. Patient is not in any acute respiratory distress. HEAD AND FACE: No signs of trauma. No ecchymosis, hematomas or skull depressions. No sinus tenderness. EYES: PERRLA, EOMI x 2, Icteric sclera EARS: Hearing grossly intact. Ear canals and tympanic membranes are within normal limits. MOUTH: Oropharynx within normal limits. NECK: Supple, trachea is midline, no adenopathy, no JVD, no carotid bruit, no c- spine tenderness, neck with full ROM. CHEST: Symmetric, no tenderness at palpation LUNGS: Clear to auscultation bilaterally. No wheezing or crackles. CVS: Regular rate and rhythm, S1 and S2 present, no murmurs or gallops appreciated. ABDOMEN: Soft, non-tender. Belly distention. No rebound no guarding, and no masses palpated. Bowel sounds are normal. EXTREMITIES: FROM in all major joints Plus 2 bilateral LE pitting edema Pain at right hip with RLE movement NEURO: Alert and oriented x 3. No acute neurological deficits. Speech is normal and follows commands. SKIN: Dry and warm GCS: 15 Triage Information Reviewed: Yes Vital Signs On Initial Exam: Initial Vitals Temp Pulse Resp BP Pulse Ox 97.5 F 88 14 119/63 94 04/19/17 13:02 04/19/17 13:02 04/19/17 13:02 04/19/17 13:02 04/19/17 13:02 Vital Signs Reviewed: Yes Diagnostics - Vital Signs Vital Signs Temp Pulse Resp BP Pulse Ox 04/19/17 13:04 87 17 95 04/19/17 13:03 119/63 04/19/17 13:02 97.5 F 88 14 119/63 94 - Laboratory Result Diagrams: 04/19/17 13:23 04/19/17 13:23 Lab Statement: Any lab studies that have been ordered have been reviewed, and results considered in the medical decision making process. - Radiology CXR Radiology Interpretation Completed By: Radiologist - NO ACTIVE DISEASE OR INTERVAL CHANGE. ED physician has reviewed this radiology report. Hip pelvis Xray Radiology Interpretation Completed By: Radiologist - NO ACUTE PLAIN RADIOGRAPHIC ABNORMALITIES. ED physician has reviewed this radiology report. - CT CT brain CT Interpretation Completed By: Radiologist - No acute intracranial findings. No interval changes ED physician has reviewed this radiology report. CT C-spine CT Interpretation Completed By: Radiologist - No fracture of the cervical spine is noted. ED physician has reviewed this radiology report. CT pelvis CT Interpretation Completed By: Radiologist - SMALL, MILDLY DISTRACTED, AVULSION FRACTURE FROM THE RIGHT GREATER TROCHANTER. ED physician has reviewed this report. Re-Evaluation - Re-Evaluation First Eval Re-Evaluation Time: 20:05 Change: Improved Comment: The pt is sober at this time and she ate. There was an attempt to walk the patient but she was unable to due to right sided hip and pelvis pain, will perform CT. Adult Trauma Course/Dx - Course Assessment/Plan: This patient is a 67 year old F [facility] s/p fall. Pt states she fell 4 times in the last 24 hours. She was unable to stand after her fall last night so she slept on the floor. When she awoke this morning and was still unable to ambulate she called 911. CT brain reveals, per radiologist, No acute intracranial findings. No interval changes. CT C-spine reveals, per radiologist, No fracture of the cervical spine is noted. CXR reveals, per radiologist, NO ACTIVE DISEASE OR INTERVAL CHANGE. ED physician has reviewed this radiology report. Hip pelvis XR reveals, per radiologist, NO ACUTE PLAIN RADIOGRAPHIC ABNORMALITIES. CT pelvis reveals, SMALL, MILDLY DISTRACTED, AVULSION FRACTURE FROM THE RIGHT GREATER TROCHANTER. Blood results with no significant abnormalities. In the ED course the patient was given iv fluids. Dx fracture of the greater trochanter. We discussed patient care with Dr. Presley and he accepted the patient for admittance. Patient will be admitted. The patient is agreeable with this plan. - Diagnoses Provider Diagnoses: Greater trochanter fracture - Physician Notifications Discussed Care Of Patient With: Bryan Presley Time Discussed With Above Provider: 21:59 Instructed by Provider To: Admit As Inpatient Discharge - Discharge Plan Condition: Fair Disposition: ADMITTED TO [facility] Referrals: Dorcas Chan, MARBLE MACHINE OPERATOR [Primary Care Provider] - The documentation as recorded by the Cristiana juan Gabriel accurately reflects the service I personally performed and the decisions made by me, Tyrel Bradford MD.
--- NOTE | 2017-04-19 22:32 | HP ---
H&P (Free Text) History and Physical: PCP: Carmen Chan NP Date/Time of Evaluation: 04/19/2017 2210 CC: fall, R hip pain HPI: Mrs Bland is a 66YO female HX alcoholism, COPD, seizures who presents tonight reporting a fall earlier today 2nd tripping over her walker after drinking "blue gatorade & rum". She denies head injury or loss of consciousness. There was no prodromal symptom, specifically no chest pain, SOB, palpitations, light-headedness, or other issue. She was unable to stand or walk afterwards 2nd R hip pain for which she presents. ED evaluation revealed an avulsion FX of the R greater trochanter. Her pain was unable to be brought under reasonable enough control in the ED to allow ambulation and so request for admission was made. PMedHx COPD PAOD s/p L carotid endarterectomy angina seizure disorder alcoholism HTN anxiety depression PTSD IBS OA Ambulatory Orders LORazepam TAB(*) [Ativan 1 MG TAB (*)] 0.5 - 1 mg PO BID PRN #60 tab MDD 2 mg Multivitamins/Minerals TAB* [Theragran/minerals TAB*] 1 tab PO DAILY #30 tab 04/13 QUEtiapine TAB* [Seroquel TAB*] 50 - 100 mg PO BEDTIME #60 tab 06/26/16 Tiotropium CAP.INH* [Spiriva CAP.INH*] 1 cap.inh INH DAILY #1 inh 06/26/16 Furosemide TAB* [Lasix TAB*] 40 mg PO DAILY 04/15/17 Potassium Chlor TAB* [Klor Con ER TAB*] 20 meq PO BID 04/15/17 Ranitidine TAB (NF) [Zantac TAB (NF)] 150 mg PO BID 04/15/17 Aspirin TAB* [Aspirin 325 MG TAB*] 650 mg PO Q6H PRN 04/19/17 Magnesium Oxide TAB* [MagOx 400 TAB*] 400 mg PO DAILY 04/19/17 Allergies doxycycline Allergy (Verified 04/19/17 13:10) Swelling gabapentin Allergy (Verified 04/19/17 13:10) Swelling prednisone Allergy (Verified 04/19/17 13:10) Hives PSurgHx L carotid endarterectomy tonsillectomy appendectomy sectio x2 SocHx: 1/2PPD cigarettes, currently drinking primarily beer daily, denies recreational drugs; lives alone; full code status FamHx: positive for dementia, HTN, CAD ROS: as above, otherwise reviewed and all were negative Constitutional: NAD, normally developed, well-nourished chronically ill appearing white female vitals: Vital Signs Temp 36.4 C 04/19/17 13:02 Pulse 110 04/19/17 20:00 Resp 23 04/19/17 20:00 BP 158/76 04/19/17 20:00 Pulse Ox 94 04/19/17 20:00 Intake & Output 04/18/17 04/19/17 04/19/17 23:59 11:59 23:59 Intake Total 2010 Balance 2010 Weight 55.792 kg Intake: IV Fluids 2010 HEENM: atraumatic; sclera/conjunctiva: non-icteric/clear; hearing: clinically intact; oropharynx: clear, mucosa moist Neck: soft tissue: non-tender; thyroid: normal Pulmonary: prominent L-sided rhonchi, fair aeration, no accessory muscle use CV: RR/RR, normal S1S2, no carotid bruit, no jugular venous distention, 2+ B DP/ PT, no edema Abdominal: soft, non-distended, non-tender, no rebound/guarding/rigidity, normoactive bowel sounds, no hepatosplenomegaly or masses, no costovertebral angle tenderness Musculoskeletal: general: grossly intact, tender overlying the R greater trochanter Integumental: normal appearance and texture of exposed skin Psychiatric orientation: AA&O to PPS affect: calm mood: cooperative eye contact: poor content: unreliable, speech slurred responses: slowed insight: poor Testing: Lab Results 04/19/17 04/19/17 04/19/17 Range/Units 13:23 13:23 13:23 WBC 4.5 (3.5-10.8) 10^3/ul RBC 3.92 L (4.0-5.4) 10^6/ul Hgb 14.2 (12.0-16.0) g/dl Hct 41 (35-47) % MCV 106 H (80-97) fL MCH 36 H (27-31) pg MCHC 34 (31-36) g/dl RDW 19 H (10.5-15) % Plt Count (150-450) 10^3/ul MPV 9 (7.4-10.4) um3 Neut % (Auto) 66.5 (38-83) % Lymph % (Auto) 22.8 L (25-47) % [place] % (Auto) 9.1 H (0-7) % Eos % (Auto) 0.5 (0-6) % Baso % (Auto) 1.1 (0-2) % Absolute Neuts (auto) 3.0 (1.5-7.7) 10^3/ul Absolute Lymphs (auto) 1.0 (1.0-4.8) 10^3/ul Absolute Monos (auto) 0.4 (0-0.8) 10^3/ul Absolute Eos (auto) 0 (0-0.6) 10^3/ul Absolute Basos (auto) 0.1 (0-0.2) 10^3/ul Absolute Nucleated RBC 0 10^3/ul Nucleated RBC % 0.1 INR (Anticoag Therapy) 1.21 H (0.77-1.02) APTT 37.9 H (26.0-36.3) seconds Sodium 136 (133-145) mmol/L Potassium 3.4 L (3.5-5.0) mmol/L Chloride 100 L (101-111) mmol/L Carbon Dioxide 27 (22-32) mmol/L Anion Gap 9 (2-11) mmol/L BUN 5 L (6-24) mg/dL Creatinine 0.45 L (0.51-0.95) mg/dL Est GFR ( Amer) 179.3 (>60) Est GFR (Non-Af Amer) 139.4 (>60) BUN/Creatinine Ratio 11.1 (8-20) Glucose 86 (70-100) mg/dL Calcium 9.0 (8.6-10.3) mg/dL Magnesium 1.5 L (1.9-2.7) mg/dL Total Bilirubin 1.10 H (0.2-1.0) mg/dL AST 30 (13-39) U/L ALT 14 (7-52) U/L Alkaline Phosphatase 75 (34-104) U/L Total Creatine Kinase 51 (10-223) U/L CK-MB (CK-2) 1.8 (0.6-6.3) ng/mL C-Reactive Protein < 1.00 (< 5.00) mg/L Total Protein 6.6 (6.4-8.9) g/dL Albumin 3.6 (3.2-5.2) g/dL Globulin 3.0 (2-4) g/dL Albumin/Globulin Ratio 1.2 (1-3) Serum Alcohol 288 H (<10) mg/dL CXR, personally reviewed: IMPRESSION: NO ACTIVE DISEASE OR INTERVAL CHANGE. XRY pelvis & R hip, personally reviewed: IMPRESSION: NO ACUTE PLAIN RADIOGRAPHIC ABNORMALITIES. CT brain WO, personally reviewed: IMPRESSION: No acute intracranial findings. No interval changes CT C-spine WO, personally reviewed: IMPRESSION: No fracture of the cervical spine is noted. CT pelvis WO, personally reviewed: IMPRESSION: SMALL, MILDLY DISTRACTED, AVULSION FRACTURE FROM THE RIGHT GREATER TROCHANTER. Impression: 66F presenting with acute intoxication and and small avulsion FX of the L greater trochanter 2nd mechanical fall DIAGNOSIS & PLAN Primary small avulsion FX of the L greater trochanter 2nd mechanical fall : pain control : PT evaluation : consider orthopedic consult in AM : supportive care acute alcohol intoxication : HX alcoholism : WA protocol hypoKalemia & hypoMagnesemia : replace & recheck Secondary PAOD s/p L CEA : review meds once reconciled angina : review meds once reconciled seizure disorder : review meds once reconciled HTN : review meds once reconciled anxiety : review meds once reconciled depression : review meds once reconciled PTSD : review meds once reconciled IBS : review meds once reconciled OA : review meds once reconciled Admission Rational: observation for intractable R hip pain 2nd avulsion FX 2nd mechanical fall DVTp: heparin SQ Code Status: full HCP: daughter
[2017-04-19] MEDS ORDERED: Potassium Chlor TAB* 20 MEQ TAB.ER PO ONE (23:44)
[2017-04-19] MEDS ORDERED: Magnesium Sulfate IV* 3 GM in NS 0.9% 100 ML* 100 ML IVPB ONE (23:45)
[2017-04-19] MEDS ORDERED: Acetaminophen TAB* 325 MG PO PRN (23:48)
[2017-04-19] MEDS ORDERED: Thiamine IV* 100 MG/ML 2 ML VIAL IM ONE (23:48)
[2017-04-19] MEDS ORDERED: Melatonin (NF) 3 MG TAB PO PRN (23:48)
[2017-04-19] MEDS ORDERED: Albuterol 2.5 MG/3 ML NEB.SOL* (0.083%) INH PRN (23:48)
[2017-04-20] MEDS ORDERED: NS 0.9% 100 ML* 100 ML ONE (00:20)
[2017-04-20] MEDS: Ondansetron INJ* 2 MG/ML VIAL IV PRN ×2 (00:28→21:11)
[2017-04-20] MEDS: NS 0.9% 1000 ML* 1,000 ML IV SCH ×2 (02:10→16:18)
[2017-04-20] MEDS: LORazepam INJ* 2 MG/ML 1 ML VIAL IV PUSH SCH ×4 (02:15→21:11)
[2017-04-20] MEDS: oxyCODONE TAB* 5 MG TAB PO PRN ×4 (04:09→16:20)
[2017-04-20] MEDS: Omeprazole CAP* 20 MG PO SCH (06:16)
[2017-04-20] MEDS: Tiotropium CAP.INH* CAP.INH/18 MCG (USE ORDER SET !) INH SCH (07:53)
[2017-04-20 08:03] LABS: EGFR Non-African American 159.7 (>60)
[2017-04-20] MEDS ORDERED: Spiriva Inhaler DEVICE* 1 EACH DEVICE INH ONE (09:00)
[2017-04-20] MEDS ORDERED: Magnesium Oxide TAB* 400 MG PO SCH (09:00)
--- NOTE | 2017-04-20 09:26 | PN ---
Subjective Date of Service: 04/20/17 Interval History: Patient A+Ox3 sitting up in bed, appears mildly anxious. She reports she has 8/ 10 right thigh pain, she does not feel that she can bear weight at this time. She reports she feels "sweaty". She denies SOB, CP. Denies tremors, hallucinations. Reports she has been having "lots of falls" at home. Admits to drinking heavily on a daily basis between 5-10 beers, occasionally drinks hard liquor. Is not interested in quitting. Denies any recent seizures at home. Objective Active Medications: Acetaminophen (Tylenol Tab*) 650 mg PO Q6H PRN PRN Reason: FEVER/PAIN Albuterol (Ventolin 2.5 Mg/3 Ml Neb.Barbara*) 2.5 mg INH Q2H PRN PRN Reason: SOB/WHEEZING Docusate Sodium (Colace Cap*) 200 mg PO BID [facility] Folic Acid (Folvite Tab*) 1 mg PO DAILY [facility] Sodium Chloride (Ns 0.9% 1000 Ml*) 1,000 mls @ 75 mls/hr IV PER RATE HERNANDEZ Last Admin: 04/20/17 02:10 Dose: 75 mls/hr Lorazepam (Ativan Inj*) 0 - 6 mg IV PUSH .PER [facility] PROTOCOL HERNANDEZ PRN Reason: Protocol Last Admin: 04/20/17 04:15 Dose: 2 mg Magnesium Oxide (Magox 400 Tab*) 400 mg PO DAILY [facility] Melatonin (Melatonin (Nf)) 3 mg PO BEDTIME PRN; Protocol PRN Reason: Sleep Multivitamins/Minerals (Theragran/Minerals Tab*) 1 tab PO DAILY [facility] Omeprazole (Prilosec Cap*) 20 mg PO DAILY@0600 HERNANDEZ Last Admin: 04/20/17 06:16 Dose: 20 mg Ondansetron HCl (Zofran Inj*) 4 mg IV Q6H PRN PRN Reason: NAUSEA Last Admin: 04/20/17 00:28 Dose: 4 mg Oxycodone HCl (Roxycodone Tab*) 5 mg PO Q4H PRN PRN Reason: PAIN Last Admin: 04/20/17 04:09 Dose: 5 mg Potassium Chloride (Klor Con Er Tab*) 20 meq PO BID [facility] Quetiapine Fumarate (Seroquel Tab*) 50 mg PO BEDTIME HERNANDEZ Thiamine HCl (Vitamin B-1 Tab*) 100 mg PO DAILY [facility] Tiotropium [place] (Spiriva Cap.Inh*) 1 cap INH DAILY [facility] Last Admin: 04/20/17 07:53 Dose: 1 cap Vital Signs - 8 hr 04/20/17 04/20/17 04/20/17 02:05 02:15 02:35 Temperature 98.3 F Pulse Rate 104 Respiratory 24 24 24 Rate Blood Pressure 176/82 (mmHg) O2 Sat by Pulse 94 Oximetry 04/20/17 04/20/17 04/20/17 04:09 04:12 04:15 Temperature 98.2 F Pulse Rate 107 Respiratory 24 18 24 Rate Blood Pressure 182/85 (mmHg) O2 Sat by Pulse 94 Oximetry 04/20/17 04/20/17 04/20/17 04:18 04:53 06:17 Temperature Pulse Rate Respiratory 24 24 Rate Blood Pressure 132/84 (mmHg) O2 Sat by Pulse Oximetry 04/20/17 04/20/17 04/20/17 06:21 06:23 06:24 Temperature 98.1 F Pulse Rate 100 Respiratory 24 24 24 Rate Blood Pressure 121/70 (mmHg) O2 Sat by Pulse 88 Oximetry 04/20/17 04/20/17 07:33 07:55 Temperature 98.8 F Pulse Rate 102 88 Respiratory 18 14 Rate Blood Pressure 155/82 (mmHg) O2 Sat by Pulse 93 90 Oximetry Oxygen Devices in Use Now: None Appearance: chronically ill middle age female A+O x3 appearly mildly anxious Eyes: No Scleral Icterus, PERRLA Ears/Nose/Mouth/Throat: NL Teeth, Lips, Gums, Mucous Membranes Moist Neck: NL Appearance and Movements; NL JVP Respiratory: Symmetrical Chest Expansion and Respiratory Effort, Clear to Auscultation Cardiovascular: NL Sounds; No Murmurs; No JVD, RRR, - - mildly tachycardiac Abdominal: NL Sounds; No Tenderness; No Distention, - - obese Extremities: No Edema, No Clubbing, Cyanosis, - - guarding right LE; full ROM in LLE. 2+ DP pulses b/l Skin: No Rash or Ulcers, No Nodules or Sclerosis Neurological: Alert and Oriented x 3 Lines/Tubes/Other Access: Clean, Dry and Intact Peripheral IV Nutrition: Taking PO's Result Diagrams: 04/19/17 13:23 04/20/17 07:39 Assess/Plan/Problems-Billing Assessment: 67 yo female with PMH of ETOH abuse, seizures, COPD, PAOD s/p L carotid endarterectomy, angina, HTN, Depression, PTSD, IBS, anxiety, and OA who presented to the ER on 04/19 after reporting a fall and was unable to stand secondary to right hip pain found to have a small avulsion fraction on the right greater trochanter - Patient Problems (1) Avulsion fracture Comment: - R greater trochanter - Ortho consult pending; discussed over phone. Ok to WBAT. No surgical intervention. - Pain management - PT (2) Alcohol intoxication Comment: - long-term hx of ETOH abuse; hx of seizures. - Contonue WAM protocol with ativan - PO Thiamin and Folic acid - Social Work consult (3) Electrolyte abnormality Comment: - continue magnesium and potassium supplementaions, recheck labs in am (4) Posttraumatic stress disorder Comment: Controlled. Continue Seroquel (5) COPD (chronic obstructive pulmonary disease) Comment: - Continue bronchodilators. (6) Depressive disorder Comment: with hx of anxiety. continue Seroquel, prn ativan (7) Full code status (8) DVT prophylaxis Comment: - SQ heparin. Status and Disposition: OBV with avulsion fx of the R greater trochanter. Awaiting ortho, PT eval. Social work consult. DC to home will determine on her mobility.
[2017-04-20] MEDS: Thiamine TAB* 100 MG TAB PO SCH (10:18)
[2017-04-20] MEDS: Multivitamins/Minerals TAB PO SCH (10:18)
[2017-04-20] MEDS: Potassium Chlor TAB* 20 MEQ TAB.ER PO SCH ×2 (10:19→21:17)
[2017-04-20] MEDS: Folic Acid TAB* 1 MG PO SCH (10:19)
[2017-04-20] MEDS: Docusate CAP* 100 MG PO SCH ×2 (10:19→21:17)
[2017-04-20] MEDS: Heparin VIAL(*) 5000 UNITS/ML VIAL (FIVE THOUSAND) SUBCUT SCH ×2 (13:38→21:17)
[2017-04-20] MEDS: QUEtiapine TAB* 25 MG PO SCH (21:16)
[2017-04-20] MEDS: Magnesium Oxide TAB* 400 MG PO SCH (21:17)
--- NOTE | 2017-04-20 22:02 | CONS ---
CC: Dr. Bennett CONSULTATION REPORT: DATE OF CONSULT: 04/20/17 CHIEF COMPLAINT: Right hip pain. HISTORY OF PRESENT ILLNESS: Tiffany is a 67-year-old woman who fell and injured her right hip. She was admitted to the hospital and had some x-rays. They were equivocal for fracture, but a CT scan shows a fracture of the top of the greater trochanter with minimal displacement. The femoral neck and inte rtrochanteric area not involved in the fracture. I was able to visualize the CT scan on my own and a gree with the radiologist reading. PHYSICAL EXAM: The patient is relatively comfortable lying in bed. She is having pain in her back f rom lying down but otherwise says her hip is relatively comfortable. She has been up with the walker and said she was able to bear weight with [id number] pain. She has tenderness of on the later al aspect of her right hip. She can wiggle her toes. IMPRESSION: Right greater trochanteric fracture, minimally displaced, and nonoperative. PLAN: Walker ambulation, weight bear as tolerated. I will see her back in followup in 2 to 3 weeks for reevaluation with re-x-ray. [id number]/[facility] #: [id number]
[2017-04-21] MEDS: oxyCODONE TAB* 5 MG TAB PO PRN ×3 (00:12→20:50)
[2017-04-21] MEDS: NS 0.9% 1000 ML* 1,000 ML IV SCH (06:15)
[2017-04-21] MEDS: Heparin VIAL(*) 5000 UNITS/ML VIAL (FIVE THOUSAND) SUBCUT SCH (06:16)
[2017-04-21] MEDS: Omeprazole CAP* 20 MG PO SCH (06:16)
[2017-04-21 06:21] LABS: ABS Basophils 0 10^3/ul (0-0.2); ABS Eosinophils 0.1 10^3/ul (0-0.6); ABS Lymphocytes 1.1 10^3/ul (1.0-4.8); ABS Monocytes 0.3 10^3/ul (0-0.8); ABS Neutrophils 2.3 10^3/ul (1.5-7.7); ABS Nucleated RBC 0 10^3/ul; Eosinophil % 2.7 % (0-6); Hematocrit 34 % (35-47); Hemoglobin 11.5 g/dl (12.0-16.0); Lymphocyte % 29.4 % (25-47); Mean Corpuscular HGB Conc 34 g/dl (31-36); Mean Corpuscular Hemoglobin 37 pg (27-31); Mean Corpuscular Volume 106 fL (80-97); Mean Platelet Volume 8 um3 (7.4-10.4); Nucleated Red Blood Cells % 0.1; Platelet Count 62 10^3/ul (150-450); Red Blood Count 3.15 10^6/ul (4.0-5.4); Red Cell Distribution Width 19 % (10.5-15); White Blood Count 3.8 10^3/ul (3.5-10.8)
[2017-04-21 06:26] LABS: EGFR Non-African American 180.3 (>60)
[2017-04-21] MEDS: Tiotropium CAP.INH* CAP.INH/18 MCG (USE ORDER SET !) INH SCH (07:32)
[2017-04-21] MEDS: Docusate CAP* 100 MG PO SCH ×2 (08:53→20:50)
[2017-04-21] MEDS: Folic Acid TAB* 1 MG PO SCH (08:53)
[2017-04-21] MEDS: Thiamine TAB* 100 MG TAB PO SCH (08:53)
[2017-04-21] MEDS: Magnesium Oxide TAB* 400 MG PO SCH ×2 (08:54→20:50)
[2017-04-21] MEDS: Potassium Chlor TAB* 20 MEQ TAB.ER PO SCH ×2 (08:54→20:50)
[2017-04-21] MEDS: Multivitamins/Minerals TAB PO SCH (08:54)
--- NOTE | 2017-04-21 13:13 | DCNOTE ---
Subjective Date of Service: 04/21/17 Objective Active Medications: Acetaminophen (Tylenol Tab*) 650 mg PO Q6H PRN PRN Reason: FEVER/PAIN Last Admin: 04/21/17 08:52 Dose: 650 mg Albuterol (Ventolin 2.5 Mg/3 Ml Neb.Barbara*) 2.5 mg INH Q2H PRN PRN Reason: SOB/WHEEZING Docusate Sodium (Colace Cap*) 200 mg PO BID [facility] Last Admin: 04/21/17 08:53 Dose: 200 mg Folic Acid (Folvite Tab*) 1 mg PO DAILY [facility] Last Admin: 04/21/17 08:53 Dose: 1 mg Lorazepam (Ativan Inj*) 0 - 6 mg IV PUSH .PER [facility] PROTOCOL [facility] PRN Reason: Protocol Last Admin: 04/20/17 21:11 Dose: 2 mg Magnesium Oxide (Magox 400 Tab*) 400 mg PO BID [facility] Last Admin: 04/21/17 08:54 Dose: 400 mg Melatonin (Melatonin (Nf)) 3 mg PO BEDTIME PRN; Protocol PRN Reason: Sleep Multivitamins/Minerals (Theragran/Minerals Tab*) 1 tab PO DAILY [facility] Last Admin: 04/21/17 08:54 Dose: 1 tab Omeprazole (Prilosec Cap*) 20 mg PO DAILY@0600 [facility] Last Admin: 04/21/17 06:16 Dose: 20 mg Ondansetron HCl (Zofran Inj*) 4 mg IV Q6H PRN PRN Reason: NAUSEA Last Admin: 04/20/17 21:11 Dose: 4 mg Oxycodone HCl (Roxycodone Tab*) 5 mg PO Q4H PRN PRN Reason: PAIN Last Admin: 04/21/17 04:20 Dose: 5 mg Potassium Chloride (Klor Con Er Tab*) 20 meq PO BID [facility] Last Admin: 04/21/17 08:54 Dose: 20 meq Quetiapine Fumarate (Seroquel Tab*) 50 mg PO BEDTIME [facility] Last Admin: 04/20/17 21:16 Dose: 50 mg Thiamine HCl (Vitamin B-1 Tab*) 100 mg PO DAILY [facility] Last Admin: 04/21/17 08:53 Dose: 100 mg Tiotropium [place] (Spiriva Cap.Inh*) 1 cap INH DAILY [facility] Last Admin: 04/21/17 07:32 Dose: 1 cap Vital Signs - 8 hr 04/21/17 04/21/17 04/21/17 06:09 06:23 07:56 Temperature 98.3 F 98.6 F Pulse Rate 88 91 Respiratory 20 20 18 Rate Blood Pressure 139/57 143/57 (mmHg) O2 Sat by Pulse 94 91 Oximetry 04/21/17 04/21/17 04/21/17 08:00 10:00 10:09 Temperature 99.1 F Pulse Rate 96 Respiratory 17 17 18 Rate Blood Pressure 170/62 (mmHg) O2 Sat by Pulse 94 Oximetry Oxygen Devices in Use Now: None Result Diagrams: 04/21/17 05:43 04/21/17 05:43 Assess/Plan/Problems-Billing Assessment: 67 yo female with PMH of ETOH abuse, seizures, COPD, PAOD s/p L carotid endarterectomy, angina, HTN, Depression, PTSD, IBS, anxiety, and OA who presented to the ER on 04/19 after reporting a fall and was unable to stand secondary to right hip pain found to have a small avulsion fraction on the right greater trochanter - Patient Problems (1) Avulsion fracture Comment: - R greater trochanter - Ortho consult pending; discussed over phone. Ok to WBAT. No surgical intervention. - Pain management - PT (2) Alcohol intoxication Comment: - long-term hx of ETOH abuse; hx of seizures. - Contonue WAM protocol with ativan - PO Thiamin and Folic acid - Social Work consult (3) Electrolyte abnormality Comment: - continue magnesium and potassium supplementaions, recheck labs in am (4) Posttraumatic stress disorder Comment: Controlled. Continue Seroquel (5) COPD (chronic obstructive pulmonary disease) Comment: - Continue bronchodilators. (6) Depressive disorder Comment: with hx of anxiety. continue Seroquel, prn ativan (7) Full code status (8) DVT prophylaxis Comment: - SQ heparin. Status and Disposition: OBV with avulsion fx of the R greater trochanter. Awaiting ortho, PT eval. Social work consult. DC to home will determine on her mobility.
[2017-04-21] MEDS ORDERED: Magnesium Sulfate 2 GM IV* 2 GM/50 ML BAG IVPB ONE (13:19)
[2017-04-21] MEDS ORDERED: KCL 20 MEQ/100 ML IVPREMIX* 20 MEQ/100 ML BAG IV ONE (13:22)
--- NOTE | 2017-04-21 13:29 | PN ---
Subjective Date of Service: 04/21/17 Interval History: Pt denies any detox symptoms. She has been ambulating around room and to bathroom independently with walker. I ambulated with her and she was noted to get herself OOB and ambulate independently to bathroom. She would like to go home. She is having little to no pain in her hip/thigh. Tolerated PO. Objective Active Medications: Acetaminophen (Tylenol Tab*) 650 mg PO Q6H PRN PRN Reason: FEVER/PAIN Last Admin: 04/21/17 08:52 Dose: 650 mg Albuterol (Ventolin 2.5 Mg/3 Ml Neb.Barbara*) 2.5 mg INH Q2H PRN PRN Reason: SOB/WHEEZING Docusate Sodium (Colace Cap*) 200 mg PO BID [facility] Last Admin: 04/21/17 08:53 Dose: 200 mg Folic Acid (Folvite Tab*) 1 mg PO DAILY [facility] Last Admin: 04/21/17 08:53 Dose: 1 mg Magnesium Sulfate (Magnesium Sulfate 2 Gm Iv*) 2 gm in 50 mls @ 50 mls/hr IVPB ONCE ONE Stop: 04/21/17 14:18 Potassium Chloride (Potassium Chloride 20 Meq/100 Ml Ivpremix*) 20 meq in 100 mls @ 50 mls/hr IV ONCE ONE Stop: 04/21/17 15:21 Potassium Chloride 20 meq/ (Sodium Chloride) 110 mls @ 55 mls/hr IVPB ONCE ONE Stop: 04/21/17 15:59 Lorazepam (Ativan Inj*) 0 - 6 mg IV PUSH .PER [facility] PROTOCOL [facility] PRN Reason: Protocol Last Admin: 04/20/17 21:11 Dose: 2 mg Magnesium Oxide (Magox 400 Tab*) 400 mg PO BID [facility] Last Admin: 04/21/17 08:54 Dose: 400 mg Melatonin (Melatonin (Nf)) 3 mg PO BEDTIME PRN; Protocol PRN Reason: Sleep Multivitamins/Minerals (Theragran/Minerals Tab*) 1 tab PO DAILY [facility] Last Admin: 04/21/17 08:54 Dose: 1 tab Omeprazole (Prilosec Cap*) 20 mg PO DAILY@0600 [facility] Last Admin: 04/21/17 06:16 Dose: 20 mg Ondansetron HCl (Zofran Inj*) 4 mg IV Q6H PRN PRN Reason: NAUSEA Last Admin: 04/20/17 21:11 Dose: 4 mg Oxycodone HCl (Roxycodone Tab*) 5 mg PO Q4H PRN PRN Reason: PAIN Last Admin: 04/21/17 04:20 Dose: 5 mg Potassium Chloride (Klor Con Er Tab*) 20 meq PO BID [facility] Last Admin: 04/21/17 08:54 Dose: 20 meq Quetiapine Fumarate (Seroquel Tab*) 50 mg PO BEDTIME [facility] Last Admin: 04/20/17 21:16 Dose: 50 mg Thiamine HCl (Vitamin B-1 Tab*) 100 mg PO DAILY [facility] Last Admin: 04/21/17 08:53 Dose: 100 mg Tiotropium [place] (Spiriva Cap.Inh*) 1 cap INH DAILY [facility] Last Admin: 04/21/17 07:32 Dose: 1 cap Vital Signs - 8 hr 04/21/17 04/21/17 04/21/17 06:09 06:23 07:56 Temperature 98.3 F 98.6 F Pulse Rate 88 91 Respiratory 20 20 18 Rate Blood Pressure 139/57 143/57 (mmHg) O2 Sat by Pulse 94 91 Oximetry 04/21/17 04/21/17 04/21/17 08:00 10:00 10:09 Temperature 99.1 F Pulse Rate 96 Respiratory 17 17 18 Rate Blood Pressure 170/62 (mmHg) O2 Sat by Pulse 94 Oximetry Oxygen Devices in Use Now: None Appearance: chronically ill female A+O x3 in NAD Respiratory: Symmetrical Chest Expansion and Respiratory Effort, Clear to Auscultation Cardiovascular: NL Sounds; No Murmurs; No JVD, RRR Abdominal: - - soft, nontender, slightly distended Extremities: No Clubbing, Cyanosis Neurological: Alert and Oriented x 3, NL Sensation, NL Gait, NL Muscle Strength and Tone Lines/Tubes/Other Access: Clean, Dry and Intact Peripheral IV Nutrition: Taking PO's Result Diagrams: 04/21/17 05:43 04/21/17 05:43 Assess/Plan/Problems-Billing Assessment: Mrs Bland is a 66YO female HX alcoholism, COPD, seizures who presented after a fall found to have a R greater trochanter avulsion fx - Patient Problems (1) Avulsion fracture Comment: - R greater trochanter - Appreciate Ortho consult Ok to WBAT. No surgical intervention. F/u in 2-3 weeks in Ortho office w/ repeat xray - Pain management - PT (2) Alcohol intoxication Comment: - long-term hx of ETOH abuse; hx of seizures. - Continue WAM protocol with ativan - withdrawl symptoms very minimal - PO Thiamin and Folic acid (3) Electrolyte abnormality Comment: - continue magnesium and potassium supplementations, recheck labs in am (4) Posttraumatic stress disorder Comment: Controlled. Continue Seroquel (5) COPD (chronic obstructive pulmonary disease) Comment: - Continue bronchodilators. (6) Depressive disorder Comment: with hx of anxiety. continue Seroquel, prn ativan (7) Full code status (8) DVT prophylaxis Comment: SQ Heparin Status and Disposition: inpatient with avulsion fx secondary to fall with severe ETOH abuse. Spoke to daughter who is okay with discharge to home. She may be discharge after electrolytes are replenished. F/u with PCP this week and Dr Sabrina Sánchez in 2-3 weeks, this was discussed with the daughter.
[2017-04-21] MEDS ORDERED: Potassium Chloride IV* 20 MEQ in NS 0.9% 100 ML* 100 ML IVPB ONE (14:00)
[2017-04-21] MEDS ORDERED: LORazepam TAB(*) 1 MG PO ONE (15:27)
[2017-04-21] MEDS: QUEtiapine TAB* 25 MG PO SCH (20:50)
[2017-04-22] MEDS: oxyCODONE TAB* 5 MG TAB PO PRN (04:54)
[2017-04-22] MEDS: Omeprazole CAP* 20 MG PO SCH (05:00)
[2017-04-22 06:05] LABS: ABS Basophils 0 10^3/ul (0-0.2); ABS Eosinophils 0.1 10^3/ul (0-0.6); ABS Lymphocytes 0.8 10^3/ul (1.0-4.8); ABS Monocytes 0.4 10^3/ul (0-0.8); ABS Neutrophils 2.6 10^3/ul (1.5-7.7); ABS Nucleated RBC 0 10^3/ul; Eosinophil % 2.6 % (0-6); Hematocrit 31 % (35-47); Hemoglobin 10.7 g/dl (12.0-16.0); Lymphocyte % 20.9 % (25-47); Mean Corpuscular HGB Conc 34 g/dl (31-36); Mean Corpuscular Hemoglobin 36 pg (27-31); Mean Corpuscular Volume 106 fL (80-97); Mean Platelet Volume 8 um3 (7.4-10.4); Nucleated Red Blood Cells % 0.1; Platelet Count 70 10^3/ul (150-450); Red Blood Count 2.94 10^6/ul (4.0-5.4); Red Cell Distribution Width 19 % (10.5-15); White Blood Count 3.9 10^3/ul (3.5-10.8)
[2017-04-22 06:12] LABS: EGFR Non-African American 180.3 (>60)
[2017-04-22] MEDS: Tiotropium CAP.INH* CAP.INH/18 MCG (USE ORDER SET !) INH SCH (09:33)
[2017-04-22] MEDS: Multivitamins/Minerals TAB PO SCH (09:35)
[2017-04-22] MEDS: Docusate CAP* 100 MG PO SCH (09:35)
[2017-04-22] MEDS: Potassium Chlor TAB* 20 MEQ TAB.ER PO SCH (09:35)
[2017-04-22] MEDS: Magnesium Oxide TAB* 400 MG PO SCH (09:36)
[2017-04-22] MEDS: Folic Acid TAB* 1 MG PO SCH (09:36)
[2017-04-22] MEDS: Thiamine TAB* 100 MG TAB PO SCH (09:36)
--- NOTE | 2017-04-22 10:22 | PN ---
Subjective Date of Service: 04/22/17 Interval History: Ms. Bland states that she is feeling quite well and is very eager for discharge to home. She notes ambulating around the unit with a walker without issue. She denies chest pain, SOB, nausea, or abdominal pain. Pain well controlled on current regimen. Objective Active Medications: Acetaminophen (Tylenol Tab*) 650 mg PO Q6H PRN Albuterol (Ventolin 2.5 Mg/3 Ml Neb.Barbara*) 2.5 mg INH Q2H PRN Docusate Sodium (Colace Cap*) 200 mg PO BID [facility] Folic Acid (Folvite Tab*) 1 mg PO DAILY [facility] Lorazepam (Ativan Inj*) 0 - 6 mg IV PUSH .PER [facility] PROTOCOL [facility] Magnesium Oxide (Magox 400 Tab*) 400 mg PO BID [facility] Melatonin (Melatonin (Nf)) 3 mg PO BEDTIME PRN; Protocol Multivitamins/Minerals (Theragran/Minerals Tab*) 1 tab PO DAILY [facility] Omeprazole (Prilosec Cap*) 20 mg PO DAILY@0600 [facility] Ondansetron HCl (Zofran Inj*) 4 mg IV Q6H PRN Oxycodone HCl (Roxycodone Tab*) 5 mg PO Q4H PRN Potassium Chloride (Klor Con Er Tab*) 20 meq PO BID [facility] Quetiapine Fumarate (Seroquel Tab*) 50 mg PO BEDTIME [facility] Thiamine HCl (Vitamin B-1 Tab*) 100 mg PO DAILY [facility] Tiotropium [place] (Spiriva Cap.Inh*) 1 cap INH DAILY [facility] Vital Signs: Temp Pulse Resp BP Pulse Ox 98.4 F 85 16 137/91 96 04/22/17 07:33 04/22/17 09:35 04/22/17 09:35 04/22/17 07:33 04/22/17 09:35 Oxygen Devices in Use Now: None Appearance: Female lying in bed in NAD Eyes: No Scleral Icterus Ears/Nose/Mouth/Throat: Mucous Membranes Moist Neck: Trachea Midline Respiratory: Symmetrical Chest Expansion and Respiratory Effort, - - Coarse rhonchi bilaterally Cardiovascular: NL Sounds; No Murmurs; No JVD, No Edema Abdominal: NL Sounds; No Tenderness; No Distention Lymphatic: No Cervical Adenopathy Extremities: No Edema Skin: No Rash or Ulcers Neurological: Alert and Oriented x 3, NL Muscle Strength and Tone Nutrition: Taking PO's Result Diagrams: 04/22/17 05:47 04/22/17 05:47 Assess/Plan/Problems-Billing Assessment: Mrs Bland is a 66YO female HX alcoholism, COPD, seizures who presented after a fall found to have a R greater trochanter avulsion fx. - Patient Problems (1) Avulsion fracture Comment: - R greater trochanter. - Appreciate Ortho consult, Ok to WBAT. No surgical intervention. F/u in 2-3 weeks in Ortho office w/ repeat xray - Pain management. - Patient is independent with walker. (2) Alcoholism Comment: - Long-term hx of ETOH abuse; hx of seizures. - No evidence of withdrawal. (3) Electrolyte abnormality Comment: - Continue po repletion, recheck labs outpatient. (4) COPD (chronic obstructive pulmonary disease) Comment: - Continue bronchodilators. - Smoking cessation counseling offered. (5) Depressive disorder Comment: - With hx of anxiety. continue Seroquel, prn ativan (6) Tobacco user Comment: Smoking cessation - pt not interested in quiting at this time (7) DVT prophylaxis Comment: - SQ Heparin (8) Full code status Comment: Status and Disposition: Discharge to home.
--- NOTE | 2017-04-22 13:19 | PN ---
Progress Note - Progress Note Date of Service: 04/22/17 SOAP: Subjective: [] Patient seen at bedside. She denies pain of RLE. She desires to get up out of bed. Denies fever, chills, CP, SOB, leg numbness, dizziness or nausea. Objective: [] Vital Signs Temp 98.4 F 04/22/17 07:33 Pulse 85 04/22/17 09:35 Resp 16 04/22/17 12:00 BP 137/91 04/22/17 07:33 Pulse Ox 96 04/22/17 09:35 Intake & Output 04/21/17 04/22/17 04/22/17 18:59 06:59 18:59 Intake Total 790 400 180 Output Total 440 200 Balance 350 200 180 Intake: IV Fluids 50 Oral 740 400 180 Output: Urine 440 200 Other: Estimated Void Medium # Bowel Movements 0 # Voids 3 Laboratory Last Values WBC 3.9 10^3/ul (3.5-10.8) 04/22/17 05:47 RBC 2.94 10^6/ul (4.0-5.4) L 04/22/17 05:47 Hgb 10.7 g/dl (12.0-16.0) L 04/22/17 05:47 Hct 31 % (35-47) L 04/22/17 05:47 MCV 106 fL (80-97) H 04/22/17 05:47 MCH 36 pg (27-31) H 04/22/17 05:47 MCHC 34 g/dl (31-36) 04/22/17 05:47 RDW 19 % (10.5-15) H 04/22/17 05:47 Plt Count 70 10^3/ul (150-450) L 04/22/17 05:47 MPV 8 um3 (7.4-10.4) 04/22/17 05:47 Neut % (Auto) 66.9 % (38-83) 04/22/17 05:47 Lymph % (Auto) 20.9 % (25-47) L 04/22/17 05:47 Levy % (Auto) 8.9 % (0-7) H 04/22/17 05:47 Eos % (Auto) 2.6 % (0-6) 04/22/17 05:47 Baso % (Auto) 0.7 % (0-2) 04/22/17 05:47 Absolute Neuts (auto) 2.6 10^3/ul (1.5-7.7) 04/22/17 05:47 Absolute Lymphs (auto) 0.8 10^3/ul (1.0-4.8) L 04/22/17 05:47 Absolute Monos (auto) 0.4 10^3/ul (0-0.8) 04/22/17 05:47 Absolute Eos (auto) 0.1 10^3/ul (0-0.6) 04/22/17 05:47 Absolute Basos (auto) 0 10^3/ul (0-0.2) 04/22/17 05:47 Absolute Nucleated RBC 0 10^3/ul 04/22/17 05:47 Nucleated RBC % 0.1 04/22/17 05:47 INR (Anticoag Therapy) 1.21 (0.77-1.02) H 04/19/17 13:23 APTT 37.9 seconds (26.0-36.3) H 04/19/17 13:23 Sodium 130 mmol/L (133-145) L 04/22/17 05:47 Potassium 3.1 mmol/L (3.5-5.0) L 04/22/17 05:47 Chloride 99 mmol/L (101-111) L 04/22/17 05:47 Carbon Dioxide 26 mmol/L (22-32) 04/22/17 05:47 Anion Gap 5 mmol/L (2-11) 04/22/17 05:47 BUN 5 mg/dL (6-24) L 04/22/17 05:47 Creatinine 0.36 mg/dL (0.51-0.95) L 04/22/17 05:47 Est GFR ( Amer) 231.9 (>60) 04/22/17 05:47 Est GFR (Non-Af Amer) 180.3 (>60) 04/22/17 05:47 BUN/Creatinine Ratio 13.9 (8-20) 04/22/17 05:47 Glucose 83 mg/dL (70-100) 04/22/17 05:47 Calcium 8.8 mg/dL (8.6-10.3) 04/22/17 05:47 Magnesium 1.4 mg/dL (1.9-2.7) L 04/22/17 05:47 Total Bilirubin 1.10 mg/dL (0.2-1.0) H 04/19/17 13:23 AST 30 U/L (13-39) 04/19/17 13:23 ALT 14 U/L (7-52) 04/19/17 13:23 Alkaline Phosphatase 75 U/L (34-104) 04/19/17 13:23 Total Creatine Kinase 51 U/L (10-223) 04/19/17 13:23 CK-MB (CK-2) 1.8 ng/mL (0.6-6.3) 04/19/17 13:23 C-Reactive Protein < 1.00 mg/L (< 5.00) 04/19/17 13:23 Total Protein 6.6 g/dL (6.4-8.9) 04/19/17 13:23 Albumin 3.6 g/dL (3.2-5.2) 04/19/17 13:23 Globulin 3.0 g/dL (2-4) 04/19/17 13:23 Albumin/Globulin Ratio 1.2 (1-3) 04/19/17 13:23 Serum Alcohol 288 mg/dL (<10) H 04/19/17 13:23 General: NAD, sitting up in bed. RLE: No obvious dominga deformity. Nontender to palpation. Patient is moving hip, knee and ankle without pain. DP2+. BL LE: Calves supple and nontender without erythema, edema or palpable cords. Assessment: []Right greater troch fracture Plan: []WBAT PT OT Follow up with Dr Bennett in 2 weeks for repeat xrays
[2017-04-22 14:00] VITALS: BP 147/72
--- NOTE | 2017-04-23 04:20 | DS ---
CC: Dorcas Chan NP * DISCHARGE SUMMARY: DATE OF ADMISSION: 04/19/17 DATE OF DISCHARGE: 04/22/17 ATTENDING PHYSICIAN: Dr. Kentrell Castro * (dictation provided by Carolyn Ramirez NP). PRIMARY DIAGNOSES: 1. Fall. 2. Right greater trochanteric avulsion fracture, weightbearing as tolerated. 3. Chronic alcoholism. SECONDARY DIAGNOSES: 1. Chronic obstructive pulmonary disease. 2. Peripheral arterial occlusive disease, status post left carotid endarterectomy. 3. Angina. 4. Seizure disorder. 5. Alcoholism. 6. Hypertension. 7. Anxiety. 8. Depression. 9. Posttraumatic stress disorder. 10. Irritable bowel syndrome. 11. Osteoarthritis. MEDICATIONS AT THE TIME OF DISCHARGE: 1. Tiotropium 1 cap inhaled daily. 2. Ranitidine 150 mg p.o. b.i.d. 3. Quetiapine 50 to 100 mg p.o. at bedtime. 4. Potassium chloride 20 mEq p.o. b.i.d. 5. Multivitamin with mineral 1 tab p.o. daily. 6. Lorazepam 0.5 to 1 mg p.o. b.i.d. p.r.n. 7. Oxycodone 5 mg p.o. q.8 hours (dispensed 15). 8. Magnesium oxide 400 mg p.o. b.i.d. 9. Acetaminophen 650 mg p.o. q.6 hours p.r.n. HOSPITAL COURSE: Ms. Bland is a 67-year-old female with past medical history of chronic alcoholism with multiple falls, who presented to the hospital on with concern for a fall. Please see dictated H and P from Dr. Bryan Presley for complete details. In brief, at the time of admission, the patient had multiple imaging studies includin. Chest x-ray showed "no active disease or interval change." 2. X-ray, pelvis and right hip. Impression: No acute plain, radiographic abnormalities. 3. CT brain "no acute intracranial findings, no interval changes." 4. CT C-spine without "no fracture to cervical spine is noted." 5. CT pelvis without "small moderately displaced avulsion fracture from the right greater trochanter." Ms. Bland was admitted to the hospital for pain control and physical therapy and orthopedic consultation. Ms. Bland was seen in consultation by Dr. Mayra Bennett on 04/20/17, I refer you to her note for complete details, but in brief, she stated that the patient could be weightbearing as tolerated with a walker and then she should be followed up in 2 to 3 weeks for reevaluation and re-x- ray outpatient. Ms. Bland was seen by Physical Therapy, who noted that she was independent but there was concern given her history of significant alcoholism. Her serum alcohol level was 288 and she was at high risk for fall or seizure. Therefore, she was continued to be monitored in the hospital for alcohol withdrawal. Ms. Dennis has been doing well. She has required no Ativan recently. For alcohol withdrawal symptoms, she has had some hypokalemia and hypomagnesemia, which we repleted during the hospitalization, but will continue outpatient. Ms. Dennis is doing well. She is ambulating independently with a walker and plans are for discharge to home. DISPOSITION: Home. DIET: Regular. ACTIVITY: As tolerated. FOLLOWUP PLANS: 1. Please follow up with basic metabolic panel and magnesium on 04/25/17 with results forwarded to Dorcas Chan NP. 2. Please follow up with Dorcas Chan NP, in 1 to 2 weeks. 3. Please follow up with Dr. Bennett in 2 to 3 weeks. TIME SPENT: Approximately 60 minutes was spent on discharge of this patient, more than half the time was spent with patient at the bedside reviewing the events leading up to this hospitalization, performing physical examination, reviewing my plan of care. CAROLYN RAMIREZ NP [id number]/[facility] #: [id number] [place]
== END 2017-04-22 13:45 | disposition home or self-care (01) | DRG 536 ==
LOC: ED 12:54 → MED 22:13 → OBSVTOIN 04-20 09:00
PROVIDERS: ADMIT Hospitalist; ATTEND Internal Medicine
DX: S72.111A Displaced fracture of greater trochanter of right femur, initial encounter for closed fracture (principal); J44.9 Chronic obstructive pulmonary disease, unspecified; E83.42 Hypomagnesemia; W01.0XXA Fall on same level from slipping, tripping and stumbling without subsequent striking against object, initial encounter; F10.229 Alcohol dependence with intoxication, unspecified; Y90.8 Blood alcohol level of 240 mg/100 ml or more; I73.9 Peripheral vascular disease, unspecified; G40.909 Epilepsy, unspecified, not intractable, without status epilepticus; I10 Essential (primary) hypertension; F41.9 Anxiety disorder, unspecified; F32.9 Major depressive disorder, single episode, unspecified; F43.10 Post-traumatic stress disorder, unspecified; K58.9 Irritable bowel syndrome, unspecified; M19.90 Unspecified osteoarthritis, unspecified site; E87.6 Hypokalemia; G47.30 Sleep apnea, unspecified; F17.210 Nicotine dependence, cigarettes, uncomplicated; Z79.82 Long term (current) use of aspirin; Z91.81 History of falling; Y92.9 Unspecified place or not applicable; Z79.899 Other long term (current) drug therapy; Z88.8 Allergy status to other drugs, medicaments and biological substances; Z81.8 Family history of other mental and behavioral disorders; Z82.49 Family history of ischemic heart disease and other diseases of the circulatory system
CPT/HCPCS: 36415; 70450; 71045; 72125; 72192; 80048; 80053; 80320; 82550; 82553; 83735; 85025; 85610; 85730; 86140; 94640; 94760; 99285; 99406; A9270-GY; G0480; G8978-GP-CI; G8979-GP-CI; J1644; J2060; J2405; J3411; J3475; J3480

== ENCOUNTER 2017-06-10 03:02 | Emergency (ER) | payer MEDICARE, MEDICAID ==
[2017-06-10] MEDS ORDERED: Albuterol/Ipratropium NEB.SOL* Albuterol 2.5 MG/Ipratropium 0.5 MG 3 ML INH ONE (03:31)
[2017-06-10] MEDS ORDERED: predniSONE TAB* 20 MG PO ONE (03:32)
[2017-06-10] MEDS ORDERED: Albuterol 2.5 MG/3 ML NEB.SOL* (0.083%) ONE (03:40)
[2017-06-10] MEDS: Albuterol 2.5 MG/3 ML NEB.SOL* (0.083%) INH SCH ×2 (03:50→04:10)
[2017-06-10 04:38] LABS: EGFR Non-African American 159.7 (>60)
[2017-06-10 04:42] LABS: ABS Basophils 0.1 10^3/ul (0-0.2); ABS Eosinophils 0.2 10^3/ul (0-0.6); ABS Lymphocytes 2.4 10^3/ul (1.0-4.8); ABS Monocytes 0.5 10^3/ul (0-0.8); ABS Neutrophils 4.3 10^3/ul (1.5-7.7); ABS Nucleated RBC 0 10^3/ul; Eosinophil % 2.5 % (0-6); Hematocrit 41 % (35-47); Hemoglobin 14.3 g/dl (12.0-16.0); Lymphocyte % 32.2 % (25-47); Mean Corpuscular HGB Conc 35 g/dl (31-36); Mean Corpuscular Hemoglobin 39 pg (27-31); Mean Corpuscular Volume 113 fL (80-97); Mean Platelet Volume 8.7 um3 (7.4-10.4); Nucleated Red Blood Cells % 0.1; Platelet Count 96 10^3/ul (150-450); Red Blood Count 3.66 10^6/ul (4.0-5.4); Red Cell Distribution Width 17 % (10.5-15); White Blood Count 7.5 10^3/ul (3.5-10.8)
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
--- NOTE | 2017-06-10 08:33 | RAD ---
INDICATION: Follow-up nodules noted on chest radiograph June 10, 2017. COMPARISON: June 10, 2017 chest radiograph. April 24, 2016 CT. TECHNIQUE: Multidetector CT images were obtained from the lung apices to the upper abdomen. Evaluation of the viscera is limited without IV contrast. REPORT: Innumerable bilateral rib fractures with callus formation including prominent foci of calcification at the RIGHT seventh and ninth ribs posteriorly accounting for the pseudo nodules on chest radiograph without concern. Mild linear atelectasis or potentially inflammatory infiltrate at the basilar segments of the RIGHT lower lobe. Negative for pleural effusions. Negative for pneumothorax. Negative for thoracic lymphadenopathy. Negative for cardiomegaly or pericardial effusion. Normal diameter thoracic aorta with moderate calcific plaque. Images through the upper abdomen are remarkable for nodular surface contour of the liver favoring cirrhosis. No visualized ascites at the upper abdomen. Negative for suspicious focal osseous lesions. IMPRESSION: 1. Innumerable bilateral rib fractures with callus formation including prominent foci of calcification at the RIGHT seventh and ninth ribs posteriorly accounting for the pseudo nodules on chest radiograph without concern. 2. Mild linear atelectasis or potentially inflammatory infiltrate at the basilar segments of the RIGHT lower lobe. Correlate with clinical assessment. 3. Cirrhotic liver morphology.
[2017-06-10 13:03] LABS: Urine Appearance Cloudy; Urine Blood Negative (Negative); Urine Color Yellow; Urine Ketones Negative (Negative); Urine Protein 2+(100 mg/dL) (Negative); Urine Specific Gravity 1.013 (1.010-1.030); Urine Urobilinogen Negative (Negative)
[2017-06-10] MEDS ORDERED: Ondansetron ODT TAB* 4 MG PO ONE (13:51)
[2017-06-10] MEDS ORDERED: LORazepam TAB(*) 1 MG PO ONE (13:51)
--- NOTE | 2017-06-10 18:40 | ED ---
Jailyn Juárez Thomas, scribed for Milind Stein MD on 06/10/17 at 0739 . Progress - Progress Note Progress Note: The patient is a sign out from Dr. Bradford at shift change, pending alcohol metabolism. CT CHEST W/O Interpreted by radiologist. IMPRESSION: 1. Innumerable bilateral rib fractures with callus formation including prominent foci of calcification at the RIGHT seventh and ninth ribs posteriorly accounting for the pseudo nodules on chest radiograph without concern. 2. Mild linear atelectasis or potentially inflammatory infiltrate at the basilar segments of the RIGHT lower lobe. Correlate with clinical assessment. 3. Cirrhotic liver morphology. Dr. Stein has reviewed this report. Course/Dx - Course Course Of Treatment: DISCHARGE HOME STABLE AFTER MHE - Diagnoses Provider Diagnoses: Mental health problem, Alcohol intoxication Discharge - Sign-Out/Discharge Documenting (check all that apply): Receiving Sign-Out Receiving patient FROM: Tyrel Bradford - Discharge Plan Condition: Stable Disposition: HOME Referrals: Wong, Psychiatrist [Other] (Please keep your appointment that you said you had with your psychiatrist in [place] at the end of this month.) Dorcas Chan, ASSISTANT PROFESSOR OF CRIMINAL JUSTICE [Primary Care Provider] - - Billing Disposition and Condition Condition: STABLE Disposition: HOME The documentation as recorded by the Jailyn juan Thomas accurately reflects the service I personally performed and the decisions made by , Milind Stein MD.
[2017-06-10 19:23] VITALS: BP 182/83
--- NOTE | 2017-06-11 13:45 | PN ---
Progress Note - Progress Note Date of Service: 06/10/17 Note: Pt. with incidental finding of possible pulmonary nodules on CXR. Chest CT was obtained in ER at time of visit and showed old calcifications from rib fractures without pulmonary nodules. No further f.u needed at this time.
== END 2017-06-10 19:54 | disposition home or self-care (01) ==
LOC: ED 03:02
DX: F10.229 Alcohol dependence with intoxication, unspecified (principal); S22.43XA Multiple fractures of ribs, bilateral, initial encounter for closed fracture; X58.XXXA Exposure to other specified factors, initial encounter; Y92.9 Unspecified place or not applicable; F17.210 Nicotine dependence, cigarettes, uncomplicated; R06.02 Shortness of breath
CPT/HCPCS: 36415; 71045; 71250; 80053; 80307; 80320; 80329; 81003; 81015; 84443; 85025; 87086; 94640; 99284; A9270-GY; G0480; J7512

== ENCOUNTER 2017-07-15 20:57 | Emergency (ER) | payer MEDICAID, MEDICARE ==
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
[2017-07-16] MEDS ORDERED: Nicotine GUM* 2 MG PO PRN (02:40)
[2017-07-16] MEDS ORDERED: Ibuprofen TAB* 400 MG PO ONE (02:41)
[2017-07-16 04:53] VITALS: BP 110/72
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
== END 2017-07-16 05:41 | disposition home or self-care (01) ==
LOC: ED 20:57
DX: S01.81XA Laceration without foreign body of other part of head, initial encounter (principal); Y09 Assault by unspecified means; Y92.9 Unspecified place or not applicable; F10.129 Alcohol abuse with intoxication, unspecified; Y90.8 Blood alcohol level of 240 mg/100 ml or more; F17.210 Nicotine dependence, cigarettes, uncomplicated; R51 Headache
CPT/HCPCS: 36415; 70450; 70486; 72125; 80320; 99284; G0480

== ENCOUNTER 2017-08-12 10:31 | Day surgery (SDC) | payer MEDICARE, MEDICAID ==
[~2017-08-12 10:31] MED LIST: Acetaminophen TAB* 325 MG PO PRN; Buffered Lidocaine 0.9% SYRIN* 5 ML/SYR SYRINGE INTRADERM ONE
[2017-08-12] MEDS ORDERED: Midazolam* 1 MG/ML 2 ML VIAL (2 MG) ONE ×2 (11:43→12:23)
[2017-08-12] MEDS ORDERED: fentaNYL* 50 MCG/ML 2 ML VIAL (100 MCG VIAL) ONE (11:43)
[2017-08-12 12:56] VITALS: BP 91/68
[2017-08-12] MEDS ORDERED: Tetracaine 0.5% OPTH.SOL 4 ML* 1 DROP BTL ONE (13:48)
[2017-08-12] MEDS ORDERED: Ketorolac 0.5% OPHTH (NF) 0.5 % 5 ML BTL ONE (13:48)
[2017-08-12] MEDS ORDERED: Tropicamide 1% OPTH.SOL* BTL ONE (13:48)
[2017-08-12] MEDS ORDERED: Cyclopentolate 1% OPTH.SOL* 2 ML BTL ONE (13:48)
[2017-08-12] MEDS ORDERED: Lidocaine 1%* 5 ML VIAL ONE (13:48)
[2017-08-12] MEDS ORDERED: Phenylephrine 2.5% OPTH.SOL* 2 ML BTL ONE (13:48)
[2017-08-12] MEDS ORDERED: Neomycin/Polymy/Dex OPHTH.OIN* 3.5 GM ONE (13:48)
[2017-08-12] MEDS ORDERED: Povidone Iodine 5% OPTH* 30 ML BTL ONE (13:48)
[2017-08-12] MEDS ORDERED: acetaZOLAMIDE TAB* 250 MG ONE (13:48)
--- NOTE | 2017-08-13 08:04 | OP ---
DATE OF OPERATION: 08/12/17 - [facility] DATE OF : 52 SURGEON: Gerald Miranda MD ANESTHESIA: Monitored anesthesia care. PRE-OP DIAGNOSIS: Cataract, right eye. POST-OP DIAGNOSIS: Cataract, right eye. OPERATIVE PROCEDURE: Extracapsular cataract extraction of the right eye with intraocular lens implant. IMPLANTS: SN60WF 19.5 diopter lens to the right eye. COMPLICATIONS: None. DESCRIPTION OF PROCEDURE: The patient was given phenylephrine 2.5% and cyclopentolate 1% eyedrops to the operative eye in the preoperative area. The patient was taken to the operating room where a time-out was taken to identify the correct patient, site and side of surgery. The patient's right eye was prepped and draped in the usual sterile fashion with 5% Betadine. A second time -out was taken to verify the correct patient, site and side of the surgery, and correct lens implant. A lid speculum was placed to the right eye. A 1-mm paracentesis blade was used to make a clear corneal incision in the superotemporal position. Preservative-free 1% lidocaine was injected into the anterior chamber. DisCoVisc was then injected into the anterior chamber. A 2.75-mm keratome blade was used to make a triplanar incision at the inferotemporal position. A cystotome initiated a capsulorrhexis, which was completed with Utrata forceps in a continuous and curvilinear manner. Hydrodissection of the lens was performed with BSS on a cannula. The lens could be spun in the capsular bag. The phacoemulsification handpiece was used with a [id number]-ymn-iqsseic technique to remove the nucleus with 7.48 CDE. The I/A handpiece then removed the residual cortical lens material. DisCoVisc was injected to inflate the capsular bag. The planned SN60WF 19.5 diopter lens was injected into the capsular bag. The residual DisCoVisc was removed from the eye with the I/A handpiece. The corneal incisions were hydrated and no leaks occurred at physiologic pressure around 20 mmHg per palpation. The lid speculum was removed and drapes removed. Maxitrol ointment was placed on the surface of the operative eye. An adhesive patch and shield was then placed on the operative eye. The patient was taken to the postoperative area in stable condition. [id number] #: [id number] MTDD
== END 2017-08-12 13:08 | disposition home or self-care (01) ==
LOC: OREAST 10:31
PROVIDERS: ATTEND Student in an Organized Health Care Education/Training Program
DX: H25.11 Age-related nuclear cataract, right eye (principal); H04.123 Dry eye syndrome of bilateral lacrimal glands; H43.23 Crystalline deposits in vitreous body, bilateral; I10 Essential (primary) hypertension; Z72.0 Tobacco use; J44.9 Chronic obstructive pulmonary disease, unspecified; K58.9 Irritable bowel syndrome, unspecified; F43.10 Post-traumatic stress disorder, unspecified; D64.9 Anemia, unspecified; F32.9 Major depressive disorder, single episode, unspecified
CPT/HCPCS: A9270-GY; J2250; J3010; V2632

== ENCOUNTER 2017-08-18 00:06 | Emergency (ER) | payer MEDICARE, MEDICAID ==
[2017-08-18] MEDS ORDERED: Albuterol/Ipratropium NEB.SOL* Albuterol 2.5 MG/Ipratropium 0.5 MG 3 ML INH ONE ×2 (00:51→00:54)
[2017-08-18] MEDS ORDERED: predniSONE TAB* 20 MG PO ONE (00:51)
[2017-08-18] MEDS ORDERED: Azithromycin TAB* 250 MG PO ONE (00:51)
--- NOTE | 2017-08-18 03:21 | ED ---
Cata Juárez SooYoung, scribed for Michael Bah MD on 08/18/17 at 0028 . Substance Abuse/Use - HPI Summary HPI Summary: A 67 y/o F JODI presents to ED after fall onset [employer]. Pt states she rolled out of bed when she tried to get up to use the bathroom. She states she has been drinking. She lives alone. Pt hit her head and L shoulder when she fell. Denies LOC. Her home health alarm went off, which called EMS, and they brought her to [facility] for evaluation. Denies blood thinners. R eye cataract surgery last week and is scheduled for L hand surgery tomorrow. PMHx: PTSD, severe anxiety, HTN, COPD. Negative cirrhosis. Takes Ativan PRN. Pt takes breathing treatments at home, but did not do one today. Smoker, daily ETOH. - History Of Current Complaint Chief Complaint: EDSubstanceAbuse Stated Complaint: ETOH Time Seen by Provider: 08/18/17 00:12 Hx Obtained From: Patient Ingestion History: Type/Name Of Drug - ETOH Overdose Characteristics: Oral Timing Of Abuse: Daily Associated Signs And Symptoms: Other: - fall; SOB - Allergies/Home Medications Allergies/Adverse Reactions: Allergies Allergy/AdvReac Type Severity Reaction Status Date / Time doxycycline Allergy Intermediate Swelling Verified 08/18/17 00:14 gabapentin Allergy Intermediate Swelling Verified 08/18/17 00:14 prednisone Allergy Unknown made Verified 08/18/17 00:14 patient feel "wired" PMH/Surg Hx/FS Hx/Imm Hx Previously Healthy: No Endocrine/Hematology History: Reports: Hx Anemia - macrocytic anemia Denies: Hx Anticoagulant Therapy, Hx Blood Disorders, Hx Blood Transfusions, Hx Bone Marrow Disease, Hx Diabetes, Hx Systemic Lupus Erythematosus, Hx Sickle Cell Disease, Hx Thyroid Disease, Hx Unexplained Bleeding, Other Endocrine/ Hematological Disorders Cardiovascular History: Reports: Hx Angina, Hx Coronary Artery Disease - carotid artery surgery, Hx Hypercholesterolemia, Hx Hypertension, Other Cardiovascular Problems/Disorders - carotid endarterectomy; hx of murmur Denies: Hx Aneurysm, Hx Angioplasty, Hx Auto Implanted Cardiovert Defib, Hx Cardiac Arrest, Hx Cardiomegaly, Hx Congenital Heart Disease, Hx Congestive Heart Failure, Hx Deep Vein Thrombosis, Hx Embolism, Hx Hypotension, Hx Pacemaker/ICD, Hx Peripheral Vascular Disease, Hx Rheumatic Fever, Hx Syncope, Hx Valvular Heart Disease Respiratory History: Reports: Hx Chronic Bronchitis, Hx Chronic Obstructive Pulmonary Disease (COPD), Hx Pneumonia, Other Respiratory Problems/Disorders - SMOKER Denies: Hx Asthma, Hx Cystic Fibrosis, Hx Lung Cancer, Hx Pleural Effusion, Hx Pulmonary Edema, Hx Pulmonary Embolism, Hx Seasonal Allergies, Hx Sleep Apnea GI History: Reports: Hx Gastroesophageal Reflux Disease - prn, Hx Irritable Bowel, Hx Ulcer, Other GI Disorders - adhesions Denies: Hx Cirrhosis, Hx Crohn's Disease, Hx Diverticulosis, Hx Gall Bladder Disease, Hx Gastrointestinal Bleed, Hx Hiatal Hernia, Hx Jaundice, Hx Obstructive Bowel, Hx Ileostomy, Hx Pyloric Stenosis History: Reports: Other Problems/Disorders - hx of UTI Denies: Hx Acute Renal Failure, Hx Benign Prostatic Hyperplasia, Hx Chronic Renal Failure, Hx Dialysis, Hx Kidney Infection, Hx Kidney Stones, Hx Renal Disease Musculoskeletal History: Reports: Hx Arthritis - osteo arthritis, osteoporosis, Hx Orthopedic Injury - broken fingers, Other Musculoskeletal History - Past injury to R hand. Denies: Hx Back Problems, Hx Bursitis, Hx Congenital Bone Abnormalities, Hx Fibromyalgia, Hx Gout, Hx Osteoporosis, Hx Scoliosis, Hx Tendonitis Sensory History: Reports: Hx Cataracts - both, Hx Contacts or Glasses - doesn't wear them though, Hx Vision Problem, Other Sensory Impairments - floaters Denies: Hx Eye Injury, Hx Eye Prosthesis, Hx Glaucoma, Hx Macular Degeneration, Hx Deafness, Hx Hearing Aid, Hx Hearing Problem Opthamlomology History: Reports: Hx Cataracts - both, Hx Contacts or Glasses - doesn't wear them though, Hx Vision Problem, Other Sensory Impairments - floaters Denies: Hx Eye Injury, Hx Eye Prosthesis, Hx Glaucoma, Hx Macular Degeneration Neurological History: Reports: Hx Headaches - rarely, Hx Seizures - x1 6 years ago at [facility]- none since Denies: Hx Dementia, Hx Developmental Delay, Hx Migraine, Hx Spinal Cord Injury, Hx Transient Ischemic Attacks (TIA), Other Neuro Impairments/Disorders Psychiatric History: Reports: Hx Anxiety - PTSD, Hx Depression - depressive disorder, Hx Panic Disorder - PTSD, Hx Post Traumatic Stress Disorder, Hx Inpatient Treatment, Hx Community Mental Health Tx, Hx Suicide Attempt, Hx Substance Abuse - ETOH, Other Psychiatric Issues/Disorders Denies: Hx Attention Deficit Hyperactivity Disorder, Hx Eating Disorder, Hx Schizophrenia, Hx Bipolar Disorder, Hx of Violent Episodes Against Others - Surgical History Surgery Procedure, Year, and Place: TONSILECTOMY ; APPENDECTOMY; X2 ; TUBAL LIGATION; CAROTID ENDERECTOMY (NO STENTINGS) Hx Anesthesia Reactions: Yes - ETHER CAUSED VOMITING - Immunization History Date of Tetanus Vaccine: PT STATES UNSURE Date of Influenza Vaccine: NONE Infectious Disease History: No Infectious Disease History: Denies: Hx Clostridium Difficile, Hx Hepatitis, Hx Human Immunodeficiency Virus (HIV), Hx Shingles, Hx Tuberculosis, Traveled Outside the [place] in Last 30 Days - Family History Known Family History: Positive: Cardiac Disease - Father, Other - father - colon ca, h/o ETOH abuse; mom- alzheimer's dz - Social History Occupation: Disabled Lives: Alone Alcohol Use: Daily Alcohol Amount: 5 mixed drinks (rum) daily Hx Substance Use: No Substance Use Type: Reports: None Substance Use Comment - Amount & Last Used: pt aware of mental & physical risks of etoh, not willing/ready to change Hx Tobacco Use: Yes Smoking Status (MU): Heavy Every Day Tobacco Smoker Type: Cigarettes Amount Used/How Often: 1ppd, smoked for 40 years, did not smoke during pregnancies, stopped for 6 Have You Smoked in the Last Year: Yes Review of Systems Positive: Other - ETOH Intoxication. Negative: Fever Positive: Shortness Of Breath Positive: Other - Fall: hit head, L shoulder All Other Systems Reviewed And Are Negative: Yes Physical Exam - Summary Physical Exam Summary: GENERAL: Patient is a well-developed and nourished F who is lying comfortable in the stretcher. Patient is not in any acute respiratory distress. HEAD AND FACE: Normocephalic EYES: PERRLA, EOMI x 2. EARS: Hearing grossly intact. MOUTH: Oropharynx within normal limits. NECK: Supple, trachea is midline, no adenopathy, no JVD, no carotid bruit. CHEST: Symmetric, no tenderness at palpation LUNGS: Diffuse expiratory wheezing CVS: Regular rate and rhythm, S1 and S2 present, no murmurs or gallops appreciated. ABDOMEN: Distended, soft, non-tender. Bowel sounds are normal. No abdominal abnormal pulsations. EXTREMITIES: Full ROM in all major joints in particular the left shoulder, no deformity no edema, no cyanosis or clubbing. NEURO: Alert and oriented x 3. No acute neurological deficits. Speech is normal and follows commands. SKIN: Dry and warm Triage Information Reviewed: Yes Vital Signs On Initial Exam: Initial Vitals Temp Pulse Resp BP Pulse Ox 97.9 F 76 18 110/65 97 08/18/17 00:15 08/18/17 00:15 08/18/17 00:15 08/18/17 00:15 08/18/17 00:15 Vital Signs Reviewed: Yes Diagnostics - Vital Signs Vital Signs Temp Pulse Resp BP Pulse Ox 08/18/17 00:15 97.9 F 76 18 110/65 97 - Laboratory Lab Statement: Any lab studies that have been ordered have been reviewed, and results considered in the medical decision making process. - CT Brain CT CT Interpretation: No Acute Changes - IMPRESSION: Nml head. ED physician has reviewed this report and agrees. CT Interpretation Completed By: Radiologist Course/Dx - Course Course Of Treatment: A 67 y/o F JODI presents to ED after fall onset [employer]. Pt states she rolled out of bed when she tried to get up to use the bathroom. She states she has been drinking. She lives alone. Pt hit her head and L shoulder when she fell. Denies LOC. Her home health alarm went off, which called EMS, and they brought her to [facility] for evaluation. Denies blood thinners. R eye cataract surgery last week and is scheduled for L hand surgery tomorrow. PMHx: PTSD, severe anxiety, HTN, COPD. Negative cirrhosis. Takes Ativan PRN. Pt takes breathing treatments at home, but did not do one today. Smoker, daily ETOH. Presents with mechanical fall out of bed. CAT scan of head is unremarkable. Upon exam, pt noticed to be wheezing, given breathing treatment. After treatment , pt is feeling better. Discussed CAT scan results. Pt will be sent home. Sent prescription for Azithromyocin and steroids. - Diagnoses Provider Diagnoses: COPD (chronic obstructive pulmonary disease), Accident due to mechanical fall without injury Discharge - Sign-Out/Discharge Documenting (check all that apply): Discharge/Admit/Transfer - DC - Discharge Plan Condition: Stable Disposition: HOME Prescriptions: Azithromycin TAB* [Zithromax TAB (Z-PEARL) 250 mg #6 tabs] 2 tab PO .TODAY, THEN 1 DAILY #1 pearl predniSONE [Deltasone 20 MG TAB] 40 mg PO DAILY #8 tab Patient Education Materials: Prednisone (By mouth), Azithromycin (By mouth), Fall Prevention for Older Adults (ED), COPD (Chronic Obstructive Pulmonary Disease) (ED) Referrals: Dorcas Chan, CHILD CARE PROVIDER [Primary Care Provider] - Additional Instructions: Please return to ED if you experience new or worsening symptoms. - Billing Disposition and Condition Condition: STABLE Disposition: Home The documentation as recorded by the Cata juan SooYoung accurately reflects the service I personally performed and the decisions made by me, Michael Bah MD.
[2017-08-18 03:45] VITALS: BP 98/53
--- NOTE | 2017-08-18 07:07 | RAD ---
INDICATION: Intracranial injury COMPARISON: July 15, 2017 TECHNIQUE: Noncontrast axial source images were acquired from the skull base to the vertex. FINDINGS: Ventricles/sulci: There is cortical atrophy with compensatory dilatation of the CSF spaces. Brain parenchyma: There is no focal parenchymal finding, evidence of intracranial mass, or intracranial mass effect. Intracranial hemorrhage:None. Extra-axial spaces: The extra-axial spaces appear unchanged. Calvarium: There is no calvarial fracture or other calvarial abnormality. Scalp: There is no evidence of scalp or extracalvarial soft tissue abnormality. Paranasal sinuses/mastoid: The paranasal sinuses and mastoid air cells are clear. Other: None. IMPRESSION: No acute intracranial findings
== END 2017-08-18 03:44 | disposition home or self-care (01) ==
LOC: ED 00:06
DX: J44.9 Chronic obstructive pulmonary disease, unspecified (principal); F10.129 Alcohol abuse with intoxication, unspecified; D53.9 Nutritional anemia, unspecified; I25.119 Atherosclerotic heart disease of native coronary artery with unspecified angina pectoris; I10 Essential (primary) hypertension; E78.00 Pure hypercholesterolemia, unspecified; K21.9 Gastro-esophageal reflux disease without esophagitis; Z87.440 Personal history of urinary (tract) infections; R56.9 Unspecified convulsions; F41.0 Panic disorder [episodic paroxysmal anxiety]; F32.9 Major depressive disorder, single episode, unspecified; F43.10 Post-traumatic stress disorder, unspecified; Z88.1 Allergy status to other antibiotic agents; Z88.8 Allergy status to other drugs, medicaments and biological substances; Z82.49 Family history of ischemic heart disease and other diseases of the circulatory system; Z80.0 Family history of malignant neoplasm of digestive organs; Z81.1 Family history of alcohol abuse and dependence; Z82.0 Family history of epilepsy and other diseases of the nervous system; F17.210 Nicotine dependence, cigarettes, uncomplicated
CPT/HCPCS: 70450; 99283; A9270-GY; J7512

== ENCOUNTER 2017-08-19 08:14 | Day surgery (SDC) | payer MEDICARE ==
[2017-08-19] MEDS ORDERED: fentaNYL* 50 MCG/ML 2 ML VIAL (100 MCG VIAL) ONE (09:38)
[2017-08-19] MEDS ORDERED: Midazolam* 1 MG/ML 2 ML VIAL (2 MG) ONE ×2 (09:38→10:10)
[2017-08-19 11:00] VITALS: BP 132/82
[2017-08-19] MEDS ORDERED: Phenylephrine 2.5% OPTH.SOL* 2 ML BTL ONE (14:17)
[2017-08-19] MEDS ORDERED: Tropicamide 1% OPTH.SOL* BTL ONE (14:17)
[2017-08-19] MEDS ORDERED: Neomycin/Polymy/Dex OPHTH.OIN* 3.5 GM ONE (14:17)
[2017-08-19] MEDS ORDERED: acetaZOLAMIDE TAB* 250 MG ONE (14:17)
[2017-08-19] MEDS ORDERED: Lidocaine 1%* 5 ML VIAL ONE (14:17)
[2017-08-19] MEDS ORDERED: Cyclopentolate 1% OPTH.SOL* 2 ML BTL ONE (14:17)
[2017-08-19] MEDS ORDERED: Povidone Iodine 5% OPTH* 30 ML BTL ONE (14:17)
[2017-08-19] MEDS ORDERED: Tetracaine 0.5% OPTH.SOL 4 ML* 1 DROP BTL ONE (14:18)
[2017-08-19] MEDS ORDERED: Ketorolac 0.5% OPHTH (NF) 0.5 % 5 ML BTL ONE (14:18)
--- NOTE | 2017-08-20 06:37 | OP ---
DATE OF OPERATION: 08/19/17 - [facility] DATE OF : 52 SURGEON: Gerald Miranda MD ANESTHESIA: Monitored anesthesia care. PRE-OP DIAGNOSIS: Cataract, left eye. POST-OP DIAGNOSIS: Cataract, left eye. OPERATIVE PROCEDURE: Extracapsular cataract extraction of the left eye with intraocular lens implant. IMPLANTS: SN60WF 20.5 Diopter lens to the left eye. COMPLICATIONS: None. DESCRIPTION OF PROCEDURE: The patient was given phenylephrine 2.5% and cyclopentolate 1% eye drops to the operative eye in the preoperative area. The patient was taken to the operating room where a time-out was taken to identify the correct patient, site, and side of the surgery. The patient's left eye was prepped and draped in the usual sterile fashion with 5% Betadine. A second time -out was taken to verify the correct patient, site and side of the surgery and correct lens implant. A lid speculum was placed to the left eye. A 1-mm paracentesis blade was used to make a clear corneal incision in the inferotemporal position. Preservative-free 1% lidocaine was injected into the anterior chamber. DisCoVisc was then injected in the anterior chamber. A 2.75- mm keratome blade was used to make a triplanar incision at the superotemporal position. A cystotome initiated a capsulorrhexis, which was completed with Utrata forceps in a continuous and curvilinear manner. Hydrodissection of the lens was performed with BSS on a cannula. The lens could be spun in the capsular bag. The phacoemulsification handpiece was used with a divide-and- conquer technique to remove the nucleus with 9.22 CDE. The I/A handpiece then removed the residual cortical lens material. DisCoVisc was injected to inflate the capsular bag. The planned SN60WF 20.5 Diopter lens was injected into the capsular bag. The residual DisCoVisc was removed from the eye with the I/A handpiece. The corneal incisions were hydrated and no leaks occurred at physiologic pressure around 20 mmHg per palpation. The lid speculum was removed and drapes removed. Maxitrol ointment was placed on the surface of the operative eye. An adhesive patch and shield was then placed on the operative eye. The patient was taken to the postoperative area in stable condition. [id number] #: [id number] MTDD
== END 2017-08-19 10:55 | disposition home or self-care (01) ==
LOC: OREAST 08:14
PROVIDERS: ATTEND Student in an Organized Health Care Education/Training Program
DX: H25.12 Age-related nuclear cataract, left eye (principal); H04.123 Dry eye syndrome of bilateral lacrimal glands; H43.23 Crystalline deposits in vitreous body, bilateral; F17.210 Nicotine dependence, cigarettes, uncomplicated; Z88.8 Allergy status to other drugs, medicaments and biological substances; Z96.1 Presence of intraocular lens
CPT/HCPCS: A9270-GY; J2250; J3010; V2632

== ENCOUNTER 2017-10-12 21:38 | Inpatient (IN) | payer MEDICARE, MEDICAID ==
--- NOTE | 2017-10-12 22:25 | RAD ---
EXAM: CT Head Without Intravenous Contrast CLINICAL HISTORY: 67 years old, female; Injury or trauma; Fall; Initial encounter; Concussion / head injury; Without loss of consciousness; Additional info: ETOH, falls- HX of multiple falls, recent cataract surgery x 3 weeks ago; No abrasions/riley to head/face or neck area TECHNIQUE: Axial computed tomography images of the head/brain without intravenous contrast. COMPARISON: BRAIN WO CT BRAIN WO 2017-08-18 01:34 FINDINGS: Brain: Chronic ischemia. Diffuse atrophy. No mass, acute hemorrhage, or edema. Ventricles: Compensatory ventriculomegaly. Bones/joints: Normal. No acute fracture. Sinuses: Normal as visualized. No acute sinusitis. Mastoid air cells: Normal as visualized. No mastoid effusion. Soft tissues: Normal. Vasculature: Atherosclerotic calcification. IMPRESSION: No acute intracranial abnormality. No change from the comparison study. R0
--- NOTE | 2017-10-12 23:47 | ED ---
Adult Trauma - HPI Summary HPI Summary: This patient is a 67 year old F BIBA to [facility] with a chief complaint of R rib pain following multiple falls in the last 3 days. The patient rates the pain 10/ 10 in severity. Symptoms aggravated by nothing. Symptoms alleviated by nothing. Patient reports head pain, ear ache, sore throat, neck pain, pelvis pain, SOB, CP, diarrhea, vomiting, anxiety, and depression. Patient denies fevers, productive cough, double vision, blurred vision, bruising, and SI. - History of Current Complaint Chief Complaint: EDHeadInjury Stated Complaint: FALL/RT SIDE RIB PAIN Hx Obtained From: Patient ?: No Mechanism of Injury: Fall Ambulatory at the Scene: Yes Loss of Consciousness: no loss of consciousness Onset/Duration: Started Days Ago, Still Present Onset of Pain: Immediate Onset Severity: Severe Current Severity: Severe Pain Intensity: 10 Pain Scale Used: 0-10 Numeric Location: Head, Abdomen/Pelvis Aggravating Factor(s): Nothing Alleviating Factor(s): Nothing Associated Signs & Symptoms: Positive: Other: - Positive head pain, ear ache, sore throat, neck pain, pelvis pain, SOB, CP, diarrhea, vomiting, anxiety, and depression. Negative fevers, productive cough, double vision, blurred vision, bruising, and SI. - Additional Pertinent History Primary Care Physician: [id number] - Allergy/Home Medications Allergies/Adverse Reactions: Allergies Allergy/AdvReac Type Severity Reaction Status Date / Time doxycycline Allergy Intermediate Swelling Verified 08/19/17 08:53 gabapentin Allergy Intermediate Swelling Verified 08/19/17 08:53 prednisone AdvReac made Verified 10/13/17 00:56 patient feel "wired" PMH/Surg Hx/FS Hx/Imm Hx Previously Healthy: No Endocrine/Hematology History: Reports: Hx Anemia - macrocytic anemia Denies: Hx Anticoagulant Therapy, Hx Blood Disorders, Hx Blood Transfusions, Hx Bone Marrow Disease, Hx Diabetes, Hx Systemic Lupus Erythematosus, Hx Sickle Cell Disease, Hx Thyroid Disease, Hx Unexplained Bleeding, Other Endocrine/ Hematological Disorders Cardiovascular History: Reports: Hx Angina, Hx Coronary Artery Disease - carotid artery surgery, Hx Hypercholesterolemia, Hx Hypertension, Other Cardiovascular Problems/Disorders - carotid endarterectomy; hx of murmur Denies: Hx Aneurysm, Hx Angioplasty, Hx Auto Implanted Cardiovert Defib, Hx Cardiac Arrest, Hx Cardiomegaly, Hx Congenital Heart Disease, Hx Congestive Heart Failure, Hx Deep Vein Thrombosis, Hx Embolism, Hx Hypotension, Hx Pacemaker/ICD, Hx Peripheral Vascular Disease, Hx Rheumatic Fever, Hx Syncope, Hx Valvular Heart Disease Respiratory History: Reports: Hx Chronic Bronchitis, Hx Chronic Obstructive Pulmonary Disease (COPD), Hx Pneumonia, Other Respiratory Problems/Disorders - SMOKER Denies: Hx Asthma, Hx Cystic Fibrosis, Hx Lung Cancer, Hx Pleural Effusion, Hx Pulmonary Edema, Hx Pulmonary Embolism, Hx Seasonal Allergies, Hx Sleep Apnea GI History: Reports: Hx Gastroesophageal Reflux Disease - prn, Hx Irritable Bowel, Hx Ulcer, Other GI Disorders - adhesions Denies: Hx Cirrhosis, Hx Crohn's Disease, Hx Diverticulosis, Hx Gall Bladder Disease, Hx Gastrointestinal Bleed, Hx Hiatal Hernia, Hx Jaundice, Hx Obstructive Bowel, Hx Ileostomy, Hx Pyloric Stenosis History: Reports: Other Problems/Disorders - hx of UTI Denies: Hx Acute Renal Failure, Hx Benign Prostatic Hyperplasia, Hx Chronic Renal Failure, Hx Dialysis, Hx Kidney Infection, Hx Kidney Stones, Hx Renal Disease Musculoskeletal History: Reports: Hx Arthritis - osteo arthritis, osteoporosis, Hx Orthopedic Injury - broken fingers, Other Musculoskeletal History - Past injury to R hand. Denies: Hx Back Problems, Hx Bursitis, Hx Congenital Bone Abnormalities, Hx Fibromyalgia, Hx Gout, Hx Osteoporosis, Hx Scoliosis, Hx Tendonitis Sensory History: Reports: Hx Cataracts - both, Hx Contacts or Glasses - doesn't wear them though, Hx Vision Problem, Other Sensory Impairments - floaters Denies: Hx Eye Injury, Hx Eye Prosthesis, Hx Glaucoma, Hx Macular Degeneration, Hx Deafness, Hx Hearing Aid, Hx Hearing Problem Opthamlomology History: Reports: Hx Cataracts - both, Hx Contacts or Glasses - doesn't wear them though, Hx Vision Problem, Other Sensory Impairments - floaters Denies: Hx Eye Injury, Hx Eye Prosthesis, Hx Glaucoma, Hx Macular Degeneration Neurological History: Reports: Hx Headaches - rarely, Hx Seizures - x1 6 years ago at [facility] [place]- none since Denies: Hx Dementia, Hx Developmental Delay, Hx Migraine, Hx Spinal Cord Injury, Hx Transient Ischemic Attacks (TIA), Other Neuro Impairments/Disorders Psychiatric History: Reports: Hx Anxiety - PTSD, Hx Depression - depressive disorder, Hx Panic Disorder - PTSD, Hx Post Traumatic Stress Disorder, Hx Inpatient Treatment, Hx Community Mental Health Tx, Hx Suicide Attempt, Hx Substance Abuse - ETOH, Other Psychiatric Issues/Disorders Denies: Hx Attention Deficit Hyperactivity Disorder, Hx Eating Disorder, Hx Schizophrenia, Hx Bipolar Disorder, Hx of Violent Episodes Against Others - Surgical History Surgery Procedure, Year, and Place: TONSILECTOMY ; APPENDECTOMY; X2 ; TUBAL LIGATION; CAROTID ENDERECTOMY (NO STENTINGS) Hx Anesthesia Reactions: Yes - ETHER CAUSED VOMITING - Immunization History Date of Tetanus Vaccine: PT STATES UNSURE Date of Influenza Vaccine: NONE Infectious Disease History: No Infectious Disease History: Denies: Hx Clostridium Difficile, Hx Hepatitis, Hx Human Immunodeficiency Virus (HIV), Hx Shingles, Hx Tuberculosis, Traveled Outside the [place] in Last 30 Days - Family History Known Family History: Positive: Cardiac Disease - Father, Other - father - colon ca, h/o ETOH abuse; mom- alzheimer's dz - Social History Occupation: Disabled Lives: Alone Alcohol Use: Daily Alcohol Amount: 5 mixed drinks (rum) daily Hx Substance Use: No Substance Use Type: Reports: None Substance Use Comment - Amount & Last Used: pt aware of mental & physical risks of etoh, not willing/ready to change Hx Tobacco Use: Yes Smoking Status (MU): Heavy Every Day Tobacco Smoker Type: Cigarettes Amount Used/How Often: 1ppd, smoked for 40 years, did not smoke during pregnancies, stopped for 6 Have You Smoked in the Last Year: Yes Review of Systems Negative: Fever Negative: Blurred Vision, Diplopia Positive: Sore Throat, Ear Ache Positive: Chest Pain Positive: Shortness Of Breath. Negative: Cough Positive: Vomiting, Diarrhea Negative: dysuria Positive: Other - Positive pelvis pain, neck pain, and R rib pain Negative: Bruising Positive: Headache Psychological: Other - Negative SI Positive: Anxious, Depressed All Other Systems Reviewed And Are Negative: No Physical Exam - Summary Physical Exam Summary: Appearance: Alert, conversive, nontoxic appearing Skin: Warm, dry, no mottling, no rashes, no contusions HEENT: EOMI, PERRL, moist mucous membranes Neck: No masses on the neck, supple Respiratory: Clear to auscultation, breath sounds present, no rales. Rhonchi and wheezing throughout. Cardiovascular: RRR, pulses are symmetrical in both lower and upper extremities Abdomen: Soft, non-tender Bowel Sounds: Present Musculoskeletal: No CVA tenderness, no obvious deformity, moving all extremities in a grossly normal manner. Bruising and abrasions to her extremities. Trace edema in bilateral feet. Dirty feet. Neurological: A&Ox3, CN II-XII Intact, moving all extremities symmetrically Psychiatric: Normal affect and mood Triage Information Reviewed: Yes Vital Signs On Initial Exam: Initial Vitals Temp Pulse Resp BP Pulse Ox 98.7 F 87 20 81/63 99 10/12/17 21:42 10/12/17 21:42 10/12/17 21:42 10/12/17 21:42 10/12/17 21:42 Vital Signs Reviewed: Yes Diagnostics - Vital Signs Vital Signs Temp Pulse Resp BP Pulse Ox 10/12/17 23:00 33 10/12/17 22:38 20 84/56 10/12/17 21:42 98.7 F 87 20 81/63 99 - Laboratory Result Diagrams: 10/13/17 00:03 10/13/17 00:03 Lab Statement: Any lab studies that have been ordered have been reviewed, and results considered in the medical decision making process. - Radiology CXR Radiology Interpretation Completed By: ED Physician - CXR reveals, per ED physician, right lower lobe pneumonia. - CT Brain CT CT Interpretation Completed By: Radiologist - Brain CT reveals, per radiologist , no acute intracranial abnormality. No change from previous study. ED physician has reviewed this radiology report. - EKG 0001 Cardiac Rate: NL EKG Rhythm: Sinus Rhythm - [address] Segment: Normal Ectopy: None Adult Trauma Course/Dx - Course Course Of Treatment: This patient is a 67 year old F BIBA to [facility] with a chief complaint of R rib pain following multiple falls in the last [address] reveals, per radiologist, no acute intracranial abnormality. No change from previous study. CXR reveals, per ED physician, right lower lobe pneumonia. An EKG reveals nml sinus rhythm at 97 BPM with a nml ST segment and no ectopy. Bloodwork obtained. In the ED course the patient was given ceftriaxone, fluids, solu-medrol, azithromycin, and albuterol. Consult with Dr. Presley ( hospitalist) at 0046. He agrees to admit pt for further evaluation. The patient is agreeable with this plan. - Diagnoses Provider Diagnoses: COPD exacerbation, Pneumonia - Physician Notifications Discussed Care Of Patient With: Bryan Presley Time Discussed With Above Provider: 00:46 Instructed by Provider To: Other - Consult with Dr. Presley (hospitalist) at 0046. He agrees to admit pt for further evaluation. Discharge - Sign-Out/Discharge Documenting (check all that apply): Patient Departure - Admit to [facility] [place] - Discharge Plan Condition: Stable Disposition: ADMITTED TO [facility] Referrals: Dorcas Chan, OCCUPATIONAL THERAPIST ASSISTANT [Primary Care Provider] - Attestations Scribe Attestation: This is [email or web address] Cervantes documenting for attending Rianna Mann MD. User Type: Provider with Scribe Provider Attestation: The documentation recorded by the scribe accurately reflects the service I personally performed and the decisions made by me.
[2017-10-12] MEDS ORDERED: Albuterol/Ipratropium NEB.SOL* Albuterol 2.5 MG/Ipratropium 0.5 MG 3 ML INH ONE (23:59)
[2017-10-12] MEDS ORDERED: methylPREDNISolone 125 MG* 2 ML VIAL IV ONE (23:59)
[2017-10-13] MEDS ORDERED: Albuterol/Ipratropium NEB.SOL* Albuterol 2.5 MG/Ipratropium 0.5 MG 3 ML ONE (00:09)
[2017-10-13 00:18] LABS: ABS Basophils 0 10^3/ul (0-0.2); ABS Eosinophils 0.1 10^3/ul (0-0.6); ABS Lymphocytes 1.4 10^3/ul (1.0-4.8); ABS Monocytes 0.5 10^3/ul (0-0.8); ABS Neutrophils 2.7 10^3/ul (1.5-7.7); ABS Nucleated RBC 0 10^3/ul; Eosinophil % 1.5 % (0-6); Hematocrit 44 % (35-47); Hemoglobin 15.2 g/dl (12.0-16.0); Lymphocyte % 30.2 % (25-47); Mean Corpuscular HGB Conc 35 g/dl (31-36); Mean Corpuscular Hemoglobin 41 pg (27-31); Mean Corpuscular Volume 116 fL (80-97); Mean Platelet Volume 8.2 um3 (7.4-10.4); Nucleated Red Blood Cells % 0.1; Platelet Count 116 10^3/ul (150-450); Red Blood Count 3.74 10^6/ul (4.00-5.40); Red Cell Distribution Width 15 % (10.5-15); White Blood Count 4.7 10^3/ul (3.5-10.8)
[2017-10-13 00:31] LABS: EGFR Non-African American 164.4 (>60)
[2017-10-13] MEDS ORDERED: Azithromycin TAB* 250 MG PO ONE (00:45)
[2017-10-13] MEDS ORDERED: NS 0.9% 1000 ML* 1,000 ML IV ONE (00:46)
[2017-10-13] MEDS ORDERED: cefTRIAXone(*) 1 GM in NS 0.9% 50 ML* 50 ML IVPB ONE (00:46)
[2017-10-13] MEDS ORDERED: Albuterol/Ipratropium NEB.SOL* Albuterol 2.5 MG/Ipratropium 0.5 MG 3 ML INH ONE (00:47)
[2017-10-13] MEDS ORDERED: Acetaminophen TAB* 325 MG PO PRN (00:51)
[2017-10-13] MEDS ORDERED: Albuterol 2.5 MG/3 ML NEB.SOL* (0.083%) INH PRN (00:51)
[2017-10-13] MEDS ORDERED: Ondansetron ODT TAB* 4 MG PO PRN (00:52)
--- NOTE | 2017-10-13 00:59 | HP ---
H&P (Free Text) History and Physical: PCP: Carmen Chan NP Date/Time of Evaluation: 10/13/2017 0045 CC: fall, generalized weakness HPI: Mrs Bland is a 66YO female HX alcoholism, COPD, seizures who presents tonight after a mechanical fall from which she was unable to get up. She called EMS and was transported for evaluation. She denies head impact or LOC. She admits to drinking alcohol today, but is vague about how much. She does report increased SOB and phlegm production over the past few days, but denies chest pain, F/C, sweats, palpitations, or other issues. Evaluation reveals a blood alcohol of 295, mid- to end-expiratory wheezing, & tachypnea. CXR is negative for acute change. PMedHx COPD PAOD s/p L carotid endarterectomy angina seizure disorder alcoholism HTN anxiety depression PTSD IBS OA Ambulatory Orders Nursing to reconcile. LORazepam TAB(*) [Ativan 1 MG TAB (*)] 0.5 - 1 mg PO BID PRN #60 tab MDD 2 mg Potassium Chlor TAB* [Potassium Chlor TAB 20 MEQ*] 20 meq PO BID 04/15/17 Ranitidine TAB (NF) [Zantac TAB (NF)] 150 mg PO BID PRN 04/15/17 Magnesium Oxide TAB* [MagOx 400 TAB*] 400 mg PO QAM 06/10/17 Naproxen TAB* [Naprosyn 250 mg TAB*] 500 mg PO BID WITH MEALS PRN 06/10/17 QUEtiapine TAB* [SEROquel TAB*] 50 - 100 mg PO BEDTIME 06/10/17 Tiotropium CAP.INH* [Spiriva CAP.INH*] 1 cap.inh INH QAM 06/10/17 Multivitamins/Minerals TAB* [Theragran/minerals TAB*] 1 tab PO QAM 08/08/17 Albuterol inh POWDER (NF) [Proair Respiclick] 108 mcg IN 08/19/17 Allergies doxycycline Allergy (Intermediate, Verified 08/19/17 08:53) Swelling ankle swelling gabapentin Allergy (Intermediate, Verified 08/19/17 08:53) Swelling ankle swelling prednisone Adverse Reaction (Verified 10/13/17 00:56) made patient feel "wired" patient stated not allergic to , just doesn't like the feeling it gives her PSurgHx L carotid endarterectomy tonsillectomy appendectomy sectio x2 SocHx: 1/2PPD cigarettes, beer/wine/liquor daily, denies recreational drugs; lives alone; full code status FamHx: positive for dementia, HTN, CAD ROS: as above, otherwise reviewed and all were negative Constitutional: NAD, normally developed, well-nourished chronically ill appearing white female vitals: Vital Signs Temp 37.1 C 10/12/17 21:42 Pulse 91 10/13/17 00:13 Resp 21 10/13/17 00:13 BP 82/57 10/12/17 23:40 Pulse Ox 96 10/13/17 00:13 Intake & Output 10/12/17 10/12/17 10/13/17 11:59 23:59 11:59 Weight 54.431 kg HEENM: atraumatic; sclera/conjunctiva: non-icteric/clear; hearing: clinically intact; oropharynx: clear, mucosa moist Neck: soft tissue: non-tender; thyroid: normal Pulmonary: B mid- to end-expiratory wheeze, fair aeration, no accessory muscle use CV: RR/RR, normal S1S2, no carotid bruit, no jugular venous distention, 2+ B DP/ PT, no edema Abdominal: soft, non-distended, non-tender, no rebound/guarding/rigidity, normoactive bowel sounds, no hepatosplenomegaly or masses, no costovertebral angle tenderness Musculoskeletal: general: grossly intact, non-tender Integumental: multiple bruises on extremities of varying ages Psychiatric orientation: AA&O to PPS affect: calm mood: cooperative eye contact: poor content: unreliable responses: mildly slowed insight: poor Testing: Lab Results 10/13/17 10/13/17 10/13/17 Range/Units 00:03 00:03 00:03 WBC 4.7 (3.5-10.8) 10^3/ul RBC 3.74 L (4.00-5.40) 10^6/ul Hgb 15.2 (12.0-16.0) g/dl Hct 44 (35-47) % MCV 116 H (80-97) fL MCH 41 H (27-31) pg MCHC 35 (31-36) g/dl RDW 15 (10.5-15) % Plt Count 116 L (150-450) 10^3/ul MPV 8.2 (7.4-10.4) um3 Neut % (Auto) 56.9 (38-83) % Lymph % (Auto) 30.2 (25-47) % [place] % (Auto) 10.4 H (0-7) % Eos % (Auto) 1.5 (0-6) % Baso % (Auto) 1.0 (0-2) % Absolute Neuts (auto) 2.7 (1.5-7.7) 10^3/ul Absolute Lymphs (auto) 1.4 (1.0-4.8) 10^3/ul Absolute Monos (auto) 0.5 (0-0.8) 10^3/ul Absolute Eos (auto) 0.1 (0-0.6) 10^3/ul Absolute Basos (auto) 0 (0-0.2) 10^3/ul Absolute Nucleated RBC 0 10^3/ul Nucleated RBC % 0.1 Sodium 140 (135-145) mmol/L Potassium 3.1 L (3.5-5.0) mmol/L Chloride 103 (101-111) mmol/L Carbon Dioxide 27 (22-32) mmol/L Anion Gap 10 (2-11) mmol/L BUN 5 L (6-24) mg/dL Creatinine 0.39 L (0.51-0.95) mg/dL Est GFR ( Amer) 199.0 (>60) Est GFR (Non-Af Amer) 164.4 (>60) BUN/Creatinine Ratio 12.8 (8-20) Glucose 75 (70-100) mg/dL Lactic Acid 3.1 H* (0.5-2.0) mmol/L Calcium 8.6 (8.6-10.3) mg/dL Magnesium 1.4 L (1.9-2.7) mg/dL Total Bilirubin 0.60 (0.2-1.0) mg/dL AST 127 H (13-39) U/L ALT 48 (7-52) U/L Alkaline Phosphatase 113 H (34-104) U/L Troponin I 0.00 (<0.04) ng/mL B-Natriuretic Peptide ( - 100) pg/mL Total Protein 6.3 L (6.4-8.9) g/dL Albumin 3.5 (3.2-5.2) g/dL Globulin 2.8 (2-4) g/dL Albumin/Globulin Ratio 1.3 (1-3) TSH Pending 10/13/17 Range/Units 00:03 WBC (3.5-10.8) 10^3/ul RBC (4.00-5.40) 10^6/ul Hgb (12.0-16.0) g/dl Hct (35-47) % MCV (80-97) fL MCH (27-31) pg MCHC (31-36) g/dl RDW (10.5-15) % Plt Count (150-450) 10^3/ul MPV (7.4-10.4) um3 Neut % (Auto) (38-83) % Lymph % (Auto) (25-47) % [place] % (Auto) (0-7) % Eos % (Auto) (0-6) % Baso % (Auto) (0-2) % Absolute Neuts (auto) (1.5-7.7) 10^3/ul Absolute Lymphs (auto) (1.0-4.8) 10^3/ul Absolute Monos (auto) (0-0.8) 10^3/ul Absolute Eos (auto) (0-0.6) 10^3/ul Absolute Basos (auto) (0-0.2) 10^3/ul Absolute Nucleated RBC 10^3/ul Nucleated RBC % Sodium (135-145) mmol/L Potassium (3.5-5.0) mmol/L Chloride (101-111) mmol/L Carbon Dioxide (22-32) mmol/L Anion Gap (2-11) mmol/L BUN (6-24) mg/dL Creatinine (0.51-0.95) mg/dL Est GFR ( Amer) (>60) Est GFR (Non-Af Amer) (>60) BUN/Creatinine Ratio (8-20) Glucose (70-100) mg/dL Lactic Acid (0.5-2.0) mmol/L Calcium (8.6-10.3) mg/dL Magnesium (1.9-2.7) mg/dL Total Bilirubin (0.2-1.0) mg/dL AST (13-39) U/L ALT (7-52) U/L Alkaline Phosphatase (34-104) U/L Troponin I (<0.04) ng/mL B-Natriuretic Peptide 37 ( - 100) pg/mL Total Protein (6.4-8.9) g/dL Albumin (3.2-5.2) g/dL Globulin (2-4) g/dL Albumin/Globulin Ratio (1-3) TSH CXR, personally reviewed: no acute process Impression: 67F presenting acutely intoxicated with a COPD exacerbation DIAGNOSIS & PLAN Primary COPD exacerbation : albuterol, mometasone/formoterol, tiotropium, IV methylprednisolone : PO azithromycin : blood & sputum CXs : smoking cessation advised, no motivation : nicotine replacement : supplemental oxygen : supportive care alcoholism, active : WAM protocol hypoKalemia & hypoMagnesemia : replace & recheck Secondary PAOD s/p L CEA : review meds once reconciled angina : review meds once reconciled seizure disorder : review meds once reconciled HTN : review meds once reconciled anxiety : review meds once reconciled depression : review meds once reconciled PTSD : review meds once reconciled IBS : review meds once reconciled OA : review meds once reconciled Admission Rational: observation for COPD exacerbation DVTp: heparin SQ Code Status: full HCP: daughter
[2017-10-13] MEDS: Albuterol 2.5 MG/3 ML NEB.SOL* (0.083%) INH SCH ×5 (01:18→20:10)
[2017-10-13] MEDS ORDERED: Ondansetron ODT TAB* 4 MG ONE (01:32)
[2017-10-13 01:37] LABS: INR 1.04 (0.77-1.02)
[2017-10-13] MEDS ORDERED: Thiamine IV* 100 MG/ML 2 ML VIAL IM ONE (02:22)
[2017-10-13] MEDS: NS 0.9% 1000 ML* 1,000 ML IV SCH ×2 (02:37→10:17)
[2017-10-13] MEDS ORDERED: LORazepam INJ* 2 MG/ML 1 ML VIAL IV PUSH SCH (03:00)
[2017-10-13] MEDS ORDERED: Magnesium Sulfate IV* 3 GM in NS 0.9% 100 ML* 100 ML IVPB ONE (03:00)
[2017-10-13] MEDS: Potassium Chlor TAB* 20 MEQ TAB.ER PO SCH ×2 (03:09→05:58)
[2017-10-13 05:03] LABS: ABS Basophils 0 10^3/ul (0-0.2); ABS Eosinophils 0 10^3/ul (0-0.6); ABS Lymphocytes 0.2 10^3/ul (1.0-4.8); ABS Monocytes 0.1 10^3/ul (0-0.8); ABS Neutrophils 3.8 10^3/ul (1.5-7.7); ABS Nucleated RBC 0 10^3/ul; Eosinophil % 0.1 % (0-6); Hematocrit 39 % (35-47); Hemoglobin 13.3 g/dl (12.0-16.0); Lymphocyte % 4.7 % (25-47); Mean Corpuscular HGB Conc 34 g/dl (31-36); Mean Corpuscular Hemoglobin 40 pg (27-31); Mean Corpuscular Volume 118 fL (80-97); Nucleated Red Blood Cells % 0.1; Platelet Count 110 10^3/ul (150-450); Red Blood Count 3.29 10^6/ul (4.00-5.40); Red Cell Distribution Width 16 % (10.5-15); White Blood Count 4.1 10^3/ul (3.5-10.8)
[2017-10-13 05:04] LABS: EGFR Non-African American 199.4 (>60)
[2017-10-13] MEDS: Omeprazole CAP* 20 MG PO SCH (05:53)
[2017-10-13] MEDS ORDERED: NS 0.9% 1000 ML* 2,000 ML IV ONE (06:30)
[2017-10-13] MEDS ORDERED: Potassium Chlor TAB* 20 MEQ TAB.ER PO ONE ×2 (06:30→10:15)
--- NOTE | 2017-10-13 07:35 | RAD ---
HISTORY: dyspnea COMPARISONS: June 10, 2017 VIEWS: 1: frontal portable view of the chest at 12:33 AM FINDINGS: LINES AND TUBES: None. CARDIOMEDIASTINAL SILHOUETTE: The cardiomediastinal silhouette is normal for portable technique. PLEURA: The costophrenic angles are sharp. No pleural abnormalities are noted. LUNG PARENCHYMA: There is hyperinflation. ABDOMEN: The upper abdomen is clear. There is no subphrenic gas. BONES AND SOFT TISSUES: There are chronic appearing fractures of the posterior ribs on the right. There is a scoliotic curvature of the spine. IMPRESSION: COPD. R1
[2017-10-13] MEDS: Azithromycin TAB* 250 MG PO SCH (07:52)
[2017-10-13] MEDS: Folic Acid TAB* 1 MG PO SCH (07:52)
[2017-10-13] MEDS: Thiamine TAB* 100 MG TAB PO SCH (07:53)
[2017-10-13] MEDS: Nicotine GUM* 2 MG PO PRN ×2 (08:00→14:10)
[2017-10-13] MEDS: Mometasone/Formoter 200/5 MDI INH SCH ×3 (08:08→20:10)
[2017-10-13] MEDS: Tiotropium CAP.INH* CAP.INH/18 MCG (USE ORDER SET !) INH SCH ×2 (08:08→08:44)
[2017-10-13] MEDS ORDERED: chlordiazePOXIDE CAP* 25 MG PO ONE (08:22)
[2017-10-13] MEDS ORDERED: Docusate CAP* 100 MG PO SCH (09:00)
[2017-10-13] MEDS ORDERED: Spiriva Inhaler DEVICE* 1 EACH DEVICE INH SCH (09:00)
[2017-10-13] MEDS ORDERED: Multivitamins/Minerals TAB PO SCH (09:00)
[2017-10-13] MEDS ORDERED: LORazepam INJ* 2 MG/ML 1 ML VIAL IV PUSH PRN (10:15)
[2017-10-13] MEDS ORDERED: chlordiazePOXIDE CAP* 25 MG PO PRN (10:15)
[2017-10-13 10:32] LABS: EGFR Non-African American 143.1 (>60)
--- NOTE | 2017-10-13 11:14 | PN ---
Subjective Date of Service: 10/13/17 Interval History: C/O pain R flank. Appetite fair. Objective Active Medications: Acetaminophen (Tylenol Tab*) 650 mg PO Q6H PRN PRN Reason: FEVER/PAIN Albuterol (Ventolin 2.5 Mg/3 Ml Neb.Barbara*) 2.5 mg INH Q2H PRN PRN Reason: SOB/WHEEZING Albuterol (Ventolin 2.5 Mg/3 Ml Neb.Barbara*) 2.5 mg INH RT.N3NS-ALPET AWAKE [facility] Last Admin: 10/13/17 08:44 Dose: 2.5 mg Azithromycin (Zithromax Tab*) 500 mg PO DAILY [facility] Last Admin: 10/13/17 07:52 Dose: 500 mg Chlordiazepoxide (Librium Cap*) 25 mg PO TID [facility] Chlordiazepoxide (Librium Cap*) 25 mg PO Q2H PRN PRN Reason: ANXIETY Device (Tiotropium Inhaler Device*) 1 each INH .USE w/ SPIRIVA CAPS [facility] Docusate Sodium (Colace Cap*) 200 mg PO BID [facility] Last Admin: 10/13/17 07:53 Dose: 200 mg Folic Acid (Folvite Tab*) 1 mg PO DAILY [facility] Last Admin: 10/13/17 07:52 Dose: 1 mg Heparin Sodium (Porcine) (Heparin Vial(*)) 5,000 units SUBCUT Q8HR [facility] Sodium Chloride (Ns 0.9% 1000 Ml*) 1,000 mls @ 125 mls/hr IV PER RATE [facility] Last Admin: 10/13/17 10:17 Dose: 125 mls/hr Lorazepam (Ativan Inj*) 2 mg IV PUSH Q1H PRN PRN Reason: AGITATION Methylprednisolone Sodium Succinate (Solu-Medrol 40 Mg) 40 mg IV Q8H [facility] Mometasone Furoate/Formoterol Fumar (Dulera 200/5 Mdi*) 2 puff INH BID [facility] Last Admin: 10/13/17 08:44 Dose: 2 puff Multivitamins/Minerals (Theragran/Minerals Tab*) 1 tab PO DAILY [facility] Last Admin: 10/13/17 07:53 Dose: 1 tab Nicotine Polacrilex (Nicotine Gum*) 2 mg PO Q2H PRN PRN Reason: CRAVING Last Admin: 10/13/17 08:00 Dose: 2 mg Omeprazole (Prilosec Cap*) 20 mg PO DAILY@0600 [facility] Last Admin: 10/13/17 05:53 Dose: 20 mg Ondansetron HCl (Zofran Odt Tab*) 4 mg PO Q6H PRN PRN Reason: n/v Last Admin: 10/13/17 01:34 Dose: 4 mg Oxycodone HCl (Roxycodone Tab*) 5 mg PO Q3H PRN PRN Reason: PAIN Thiamine HCl (Vitamin B-1 Tab*) 100 mg PO DAILY [facility] Last Admin: 10/13/17 07:53 Dose: 100 mg Tiotropium [place] (Spiriva Cap.Inh*) 1 cap INH DAILY [facility] Last Admin: 10/13/17 08:44 Dose: 1 cap Vital Signs - 8 hr 10/13/17 10/13/17 10/13/17 04:22 06:00 06:11 Temperature 97.7 F Pulse Rate 102 Respiratory 22 20 20 Rate Blood Pressure 136/65 (mmHg) O2 Sat by Pulse 92 Oximetry 10/13/17 10/13/17 10/13/17 08:00 08:04 08:06 Temperature 97.6 F Pulse Rate 110 Respiratory 28 28 Rate Blood Pressure 137/95 165/75 (mmHg) O2 Sat by Pulse 95 Oximetry 10/13/17 10/13/17 10/13/17 08:15 08:48 10:08 Temperature 98.2 F Pulse Rate 108 110 Respiratory 28 20 17 Rate Blood Pressure 99/76 (mmHg) O2 Sat by Pulse 97 91 Oximetry Oxygen Devices in Use Now: Nasal Cannula Appearance: Alert, partly up in bed. In fair spirits. Looks comfortable. Eyes: No Scleral Icterus Respiratory: Symmetrical Chest Expansion and Respiratory Effort, Clear to Percussion - mild to mod rhonchi BL Cardiovascular: NL Sounds; No Murmurs; No JVD, RRR, No Edema, - Abdominal: No Hepatosplenomegaly, - - Tender R flank Extremities: No Edema, No Clubbing, Cyanosis, - Skin: No Rash or Ulcers, No Nodules or Sclerosis, - Neurological: Alert and Oriented x 3, NL Sensation Result Diagrams: 10/13/17 04:15 10/13/17 09:55 Assess/Plan/Problems-Billing Assessment: - Patient Problems (1) COPD (chronic obstructive pulmonary disease) Current Visit: No Status: Chronic Code(s): J44.9 - CHRONIC OBSTRUCTIVE PULMONARY DISEASE, UNSPECIFIED SNOMED Code(s): 11690131 Comment: Possibly in exacerbation. Continue azithromycin, IV methylprednisolone, bronchodilators. (2) Abdominal pain Current Visit: Yes Status: Acute Code(s): R10.9 - UNSPECIFIED ABDOMINAL PAIN SNOMED Code(s): 53850470 Comment: With lactic acidosis and R flank pain. CT abd pelvis w/ ordered. Repeat labs 10/13 1700 hrs and in AM. (3) Tobacco user Current Visit: No Status: Chronic Code(s): Z72.0 - TOBACCO USE SNOMED Code (s): 420503140 Comment: Pt advised to quit smoking and avoid second hand smoke. (4) Alcoholism Current Visit: No Status: Chronic Priority: High Code(s): F10.20 - ALCOHOL DEPENDENCE, UNCOMPLICATED SNOMED Code(s): 2864348 Comment: - Long-term hx of ETOH abuse; hx of seizures. Scheduled chlordiazepoxide started 10/13. Continue thiamne.
[2017-10-13] MEDS: oxyCODONE TAB* 5 MG TAB PO PRN ×2 (11:26→14:09)
[2017-10-13] MEDS ORDERED: methylPREDNISolone SOD 40 MG* 1 ML VIAL IV SCH (12:00)
[2017-10-13] MEDS: methylPREDNISolone 125 MG* 2 ML VIAL IV SCH (13:24)
[2017-10-13] MEDS ORDERED: Iohexol 300* (CONTRAST) 10 ML SDV IV ONE (13:30)
[2017-10-13] MEDS: NS 0.9% w/ 20 Meq KCL 1000 ML* 1,000 ML IV SCH (14:03)
--- NOTE | 2017-10-13 14:05 | RAD ---
CLINICAL HISTORY: Pain R flank, lactic acidosis COMPARISON: None TECHNIQUE: Multiple contiguous axial CT scans were obtained of the abdomen and pelvis after the administration of intravenous contrast. Coronal and sagittal multiplanar reformations are submitted for review. Oral contrast was administered. Delayed images were obtained through the abdomen. FINDINGS: LUNG BASES: The lung bases are clear. LIVER: The liver is diffusely low in attenuation compared to the spleen. There are no focal hepatic parenchymal masses. BILE DUCTS: There is no intrahepatic or extrahepatic biliary dilatation. GALLBLADDER: The gallbladder is normal, without pericholecystic inflammatory change. PANCREAS: The pancreas is normal, without mass or ductal dilatation. SPLEEN: Normal in size and appearance. UPPER GI TRACT: Evaluation of the gastrointestinal tract is limited by incomplete gastric distention. There is mucosal thickening involving the distal second stage, third stage, and fourth stage of the duodenum. SMALL BOWEL AND MESENTERY: There is diffuse mucosal thickening involving the proximal jejunum. There is stranding of the adjacent mesenteric fat. COLON: There is hypoenhancement of the mucosal of the ascending colon compared to the descending colon. ADRENALS: Normal bilaterally. KIDNEYS: The kidneys are normal in shape, size, contour, and axis. There is no hydronephrosis or nephrolithiasis. BLADDER: The bladder is smooth in contour. PELVIC ORGANS: The uterus and adnexa are grossly normal for technique. AORTA: There is calcific atherosclerotic disease of the abdominal aorta and its branches, without aneurysmal dilatation. The celiac trunk, superior mesenteric artery, inferior mesenteric arteries appear patent IVC: Unremarkable LYMPH NODES: There is no lymphadenopathy by size criteria. ABDOMINAL WALL: There is no evidence for abdominal wall hernia. BONES AND SOFT TISSUES: Degenerative changes are noted of the spine. OTHER: There is trace amount of ascites. IMPRESSION: 1. THERE IS DIFFUSE MUCOSAL THICKENING OF THE DISTAL DUODENUM AND PROXIMAL JEJUNUM WITH ADJACENT INFLAMMATORY CHANGE, CONSISTENT WITH ENTERITIS, INCLUDING INFECTIOUS OR NONINFECTIOUS INFLAMMATORY ENTERITIS. 2. THERE IS RELATIVE HYPOENHANCEMENT OF THE MUCOSA OF THE DESCENDING COLON. THE DESCENDING COLON. GIVEN THE HISTORY LACTIC ACIDOSIS, THIS MAY INDICATE ISCHEMIC BOWEL, THOUGH THE SPLANCHNIC VESSELS ARE PATENT. 3. FATTY INFILTRATION OF LIVER. 4. ATHEROSCLEROSIS. 5. TRACE ASCITES.
[2017-10-13] MEDS: chlordiazePOXIDE CAP* 25 MG PO SCH ×2 (14:31→19:52)
[2017-10-13 17:37] LABS: EGFR Non-African American 186.3 (>60)
[2017-10-13] MEDS: Melatonin 3 MG TAB PO PRN (22:57)
[2017-10-14] MEDS: NS 0.9% w/ 20 Meq KCL 1000 ML* 1,000 ML IV SCH ×3 (01:14→21:12)
[2017-10-14] MEDS: Albuterol 2.5 MG/3 ML NEB.SOL* (0.083%) INH SCH ×4 (01:16→20:38)
[2017-10-14] MEDS: Omeprazole CAP* 20 MG PO SCH (06:06)
[2017-10-14] MEDS: Heparin VIAL(*) 5000 UNITS/ML VIAL (FIVE THOUSAND) SUBCUT SCH ×3 (06:06→21:12)
[2017-10-14] MEDS: Mometasone/Formoter 200/5 MDI INH SCH ×2 (08:22→20:38)
[2017-10-14] MEDS: Tiotropium CAP.INH* CAP.INH/18 MCG (USE ORDER SET !) INH SCH (08:22)
[2017-10-14] MEDS: Folic Acid TAB* 1 MG PO SCH (08:55)
[2017-10-14] MEDS: chlordiazePOXIDE CAP* 25 MG PO SCH ×3 (08:56→21:11)
[2017-10-14] MEDS: Azithromycin TAB* 250 MG PO SCH (08:56)
[2017-10-14] MEDS: Thiamine TAB* 100 MG TAB PO SCH (08:57)
[2017-10-14] MEDS: oxyCODONE TAB* 5 MG TAB PO PRN ×2 (08:57→19:56)
[2017-10-14] MEDS: methylPREDNISolone 125 MG* 2 ML VIAL IV SCH (08:58)
[2017-10-14] MEDS: Nicotine GUM* 2 MG PO PRN ×2 (08:59→19:55)
[2017-10-14] MEDS ORDERED: methylPREDNISolone SOD 40 MG* 1 ML VIAL IV SCH (09:00)
--- NOTE | 2017-10-14 13:06 | PN ---
Subjective Date of Service: 10/14/17 Interval History: C/O dry cough. SOB somewhat better. R flank pain somewhat better, now 5+ hours since last oxycodone and she doesn't need another one yet. 2 BM's so far today. C/O eating a very small amount gives her diarrhea. Objective Active Medications: Acetaminophen (Tylenol Tab*) 650 mg PO Q6H PRN PRN Reason: FEVER/PAIN Last Admin: 10/13/17 20:06 Dose: 650 mg Albuterol (Ventolin 2.5 Mg/3 Ml Neb.Barbara*) 2.5 mg INH Q2H PRN PRN Reason: SOB/WHEEZING Albuterol (Ventolin 2.5 Mg/3 Ml Neb.Barbara*) 2.5 mg INH [id number] AWAKE [facility] Last Admin: 10/14/17 08:21 Dose: 2.5 mg Azithromycin (Zithromax Tab*) 500 mg PO DAILY [facility] Last Admin: 10/14/17 08:56 Dose: 500 mg Chlordiazepoxide (Librium Cap*) 25 mg PO TID [facility] Last Admin: 10/14/17 08:56 Dose: 25 mg Chlordiazepoxide (Librium Cap*) 25 mg PO Q2H PRN PRN Reason: ANXIETY Device (Tiotropium Inhaler Device*) 1 each INH .USE w/ SPIRIVA CAPS [facility] Folic Acid (Folvite Tab*) 1 mg PO DAILY [facility] Last Admin: 10/14/17 08:55 Dose: 1 mg Heparin Sodium (Porcine) (Heparin Vial(*)) 5,000 units SUBCUT Q8HR [facility] Last Admin: 10/14/17 06:06 Dose: 5,000 units Potassium Chloride/Sodium Chloride (Ns 0.9% W/ 20 Meq Kcl 1000 Ml*) 1,000 mls @ 125 mls/hr IV PER RATE [facility] Last Admin: 10/14/17 08:58 Dose: 125 mls/hr Lorazepam (Ativan Inj*) 2 mg IV PUSH Q1H PRN PRN Reason: AGITATION Melatonin (Melatonin) 3 mg PO BEDTIME PRN; Protocol PRN Reason: Sleep Last Admin: 10/13/17 22:57 Dose: 3 mg Mometasone Furoate/Formoterol Fumar (Dulera 200/5 Mdi*) 2 puff INH BID [facility] Last Admin: 10/14/17 08:22 Dose: 2 puff Nicotine Polacrilex (Nicotine Gum*) 2 mg PO Q2H PRN PRN Reason: CRAVING Last Admin: 10/14/17 08:59 Dose: 2 mg Omeprazole (Prilosec Cap*) 20 mg PO DAILY@0600 [facility] Last Admin: 10/14/17 06:06 Dose: 20 mg Ondansetron HCl (Zofran Odt Tab*) 4 mg PO Q6H PRN PRN Reason: n/v Last Admin: 10/13/17 01:34 Dose: 4 mg Oxycodone HCl (Roxycodone Tab*) 5 mg PO Q3H PRN PRN Reason: PAIN Last Admin: 10/14/17 08:57 Dose: 5 mg Prednisone (Deltasone Tab*) 50 mg PO DAILY [facility] Thiamine HCl (Vitamin B-1 Tab*) 100 mg PO DAILY [facility] Last Admin: 10/14/17 08:57 Dose: 100 mg Tiotropium [place] (Spiriva Cap.Inh*) 1 cap INH DAILY [facility] Last Admin: 10/14/17 08:22 Dose: 1 cap Vital Signs - 8 hr 10/14/17 10/14/17 10/14/17 07:31 08:00 08:26 Temperature 97.3 F Pulse Rate 88 86 Respiratory 18 20 16 Rate Blood Pressure 120/88 (mmHg) O2 Sat by Pulse 92 93 Oximetry 10/14/17 10/14/17 10/14/17 08:56 08:57 08:58 Temperature 98.8 F Pulse Rate 95 Respiratory 20 20 Rate Blood Pressure 116/87 (mmHg) O2 Sat by Pulse 90 Oximetry 10/14/17 10/14/17 11:06 11:50 Temperature 98.2 F Pulse Rate 77 Respiratory 20 18 Rate Blood Pressure 112/70 (mmHg) O2 Sat by Pulse 91 Oximetry Oxygen Devices in Use Now: Nasal Cannula Appearance: Alert, partly up in bed. In good spirits. Looks comfortable. No cough during my visit. Eyes: No Scleral Icterus Respiratory: Symmetrical Chest Expansion and Respiratory Effort, Clear to Auscultation, Clear to Percussion Cardiovascular: NL Sounds; No Murmurs; No JVD, RRR, No Edema, - Extremities: No Edema, No Clubbing, Cyanosis, - Skin: No Rash or Ulcers, No Nodules or Sclerosis, - Neurological: Alert and Oriented x 3, NL Sensation Result Diagrams: 10/13/17 04:15 10/13/17 17:12 Microbiology and Other Data: Microbiology 10/13/17 00:03 Aerobic Blood Culture - Preliminary Blood Line No Growth Day 1 Anaerobic Blood Culture - Preliminary No Growth Day 1 10/13/17 00:03 Aerobic Blood Culture - Preliminary Blood Line No Growth Day 1 Anaerobic Blood Culture - Preliminary No Growth Day 1 10/13/17 05:46 Legionella Urinary Antigen - Final Urine Negative Legionella Antigen Streptococcus pneumoniae Ag Screen - Final Negative S. pneumo Antigen Assess/Plan/Problems-Billing Assessment: - Patient Problems (1) COPD (chronic obstructive pulmonary disease) Current Visit: No Status: Chronic Code(s): J44.9 - CHRONIC OBSTRUCTIVE PULMONARY DISEASE, UNSPECIFIED SNOMED Code(s): 57202102 Comment: Much improved lung exam 10/14. Continue azithromycin. Start prednisone taper 10/15. (2) Abdominal pain Current Visit: Yes Status: Acute Code(s): R10.9 - UNSPECIFIED ABDOMINAL PAIN SNOMED Code(s): 56328533 Comment: With lactic acidosis and R flank pain. CT abd pelvis c/w duodenal jejunal inflammation ? ischemic bowel. Lactate decreasd to 3.8 10/13. GI consult requested. CRP, lactic acid, CBC, BMP 10/15. (3) Tobacco user Current Visit: No Status: Chronic Code(s): Z72.0 - TOBACCO USE SNOMED Code (s): 289570338 Comment: Pt advised to quit smoking and avoid second hand smoke. (4) Alcoholism Current Visit: No Status: Chronic Priority: High Code(s): F10.20 - ALCOHOL DEPENDENCE, UNCOMPLICATED SNOMED Code(s): 1862951 Comment: - Long-term hx of ETOH abuse; hx of seizures. Taper chlordiazepoxide starting 10/15. Continue thiamne.
[2017-10-14] MEDS ORDERED: Artificial Tears* 15 ML BTL BOTH EYES PRN (14:43)
[2017-10-14] MEDS: Polyethyl Glycol/Propylene Gly OPHTH.SOLN BOTH EYES PRN (19:55)
--- NOTE | 2017-10-14 20:45 | CONS ---
CONSULTATION REPORT: DATE OF CONSULT: 10/14/17 REQUESTING PHYSICIAN: Dr. Castro. INDICATION: Lactic acidosis. NARRATIVE: Ms. Bland is a pleasant 67-year-old female admitted with a fall and weakness 2 days ago in the emergency room. They checked her lactate level, it was elevated. They then obtained a CT which shows possible duodenal and jejunal thickening and descending colon thickening. They are questioning ischemic colitis. She does describe occasional abdominal pain. Her biggest complaint is that food does not have any taste. She denies any pain with eating. Rarely has diarrhea. She does have slight weight loss. No fevers or chills. She really was not having any GI complaints when she initially presented to the emergency room. She is asking to go home. PAST MEDICAL HISTORY: COPD, angina, seizure, alcoholism, hypertension, anxiety , depression, PTSD, IBS, obstructive sleep apnea. PAST SURGICAL HISTORY: Surgeries include carotid endarterectomy, tonsillectomy , appendectomy, and x2. MEDICATIONS: Upon admission include Seroquel. ALLERGIES: DOXYCYCLINE, GABAPENTIN, and PREDNISONE. FAMILY HISTORY: Positive for coronary artery disease, hypertension, dementia. SOCIAL HISTORY: She continues to smoke cigarettes. She continues to drink alcohol. No IV drugs. REVIEW OF SYSTEMS: Twelve systems were reviewed, other than that mentioned in the HPI were unremarkable. PHYSICAL EXAM: Temperature is 98.2, blood pressure is 112/70, pulse is 77, respiratory rate of 18. General: Chronically ill-appearing female, in no apparent distress. Alert, oriented, pleasant, and fluent. HEENT: Mucous membranes are moist without lesions, ulcers, or exudate. Neck: Supple. Trachea is midline. Head is normocephalic, atraumatic. Heart: Regular rate and rhythm. No murmurs, rubs, or gallops. Lungs: Diffuse breath sounds bilaterally, wheezes. Skin is warm and dry. Musculoskeletal: No CVA or spinal tenderness to palpation. LABORATORY DATA: Labs of note: White count is 4.1, hemoglobin is 13.3, platelets of 110,000. INR is 1.04. Sodium is 132, BUN 2, creatinine 0.35. Lactate went from 5.7 to 3.8. ASSESSMENT AND PLAN: This is a 67-year-old female with multiple medical issues. Possibly, she has ischemic colitis given her elevated lactate and CT findings. She does have risk factors; however, she is really not having any abdominal tenderness or diarrhea. At this point, she is improving. She is tolerating a solid diet, a regular diet. She may benefit from an outpatient colonoscopy. She also has duodenal jejunal thickening. This could be related to the H. pylori. We will check that. [id number]/[facility] #: [id number] MTDD
[2017-10-14] MEDS: Melatonin 3 MG TAB PO PRN (21:11)
[2017-10-15] MEDS: oxyCODONE TAB* 5 MG TAB PO PRN (00:56)
[2017-10-15] MEDS: Albuterol 2.5 MG/3 ML NEB.SOL* (0.083%) INH SCH ×2 (01:52→07:32)
[2017-10-15] MEDS: Polyethyl Glycol/Propylene Gly OPHTH.SOLN BOTH EYES PRN ×2 (03:30→09:00)
[2017-10-15] MEDS: Heparin VIAL(*) 5000 UNITS/ML VIAL (FIVE THOUSAND) SUBCUT SCH (05:35)
[2017-10-15] MEDS: NS 0.9% w/ 20 Meq KCL 1000 ML* 1,000 ML IV SCH (05:35)
[2017-10-15] MEDS: Omeprazole CAP* 20 MG PO SCH (05:35)
[2017-10-15] MEDS: Nicotine GUM* 2 MG PO PRN (05:47)
[2017-10-15 07:25] LABS: ABS Basophils 0 10^3/ul (0-0.2); ABS Eosinophils 0 10^3/ul (0-0.6); ABS Lymphocytes 1.1 10^3/ul (1.0-4.8); ABS Monocytes 0.5 10^3/ul (0-0.8); ABS Neutrophils 3.7 10^3/ul (1.5-7.7); ABS Nucleated RBC 0 10^3/ul; Eosinophil % 0.2 % (0-6); Hematocrit 37 % (35-47); Hemoglobin 13.1 g/dl (12.0-16.0); Mean Corpuscular HGB Conc 35 g/dl (31-36); Mean Corpuscular Hemoglobin 41 pg (27-31); Mean Corpuscular Volume 116 fL (80-97); Mean Platelet Volume 8.5 um3 (7.4-10.4); Nucleated Red Blood Cells % 0.2; Platelet Count 80 10^3/ul (150-450); Red Cell Distribution Width 15 % (10.5-15); White Blood Count 5.3 10^3/ul (3.5-10.8)
[2017-10-15] MEDS: Mometasone/Formoter 200/5 MDI INH SCH (07:32)
[2017-10-15] MEDS: Tiotropium CAP.INH* CAP.INH/18 MCG (USE ORDER SET !) INH SCH (07:33)
[2017-10-15 07:37] LABS: EGFR Non-African American 159.7 (>60)
[2017-10-15] MEDS: Folic Acid TAB* 1 MG PO SCH (08:57)
[2017-10-15] MEDS: Azithromycin TAB* 250 MG PO SCH (08:58)
[2017-10-15] MEDS: Thiamine TAB* 100 MG TAB PO SCH (08:59)
[2017-10-15] MEDS ORDERED: chlordiazePOXIDE CAP* 25 MG PO SCH (09:00)
[2017-10-15] MEDS ORDERED: predniSONE TAB* 10 MG PO SCH (09:00)
[2017-10-15] MEDS ORDERED: Albuterol 2.5 MG/3 ML NEB.SOL* (0.083%) INH PRN (10:40)
[2017-10-15 13:33] VITALS: BP 127/79
--- NOTE | 2017-10-15 21:29 | DS ---
DISCHARGE SUMMARY: DATE OF ADMISSION: 10/14/17 DATE OF DISCHARGE: 10/15/17 HOSPITAL COURSE: This 67-year-old woman presented after a fall and generalized weakness. The history is detailed in the admission note. She was felt to have a combination of alcohol withdrawal syndrome and COPD exacerbation. Later on in her hospital stay she developed right abdominal pain and she had a lactic acidosis as well. CT scan of the abdomen and pelvis showed thickening and inflammation of the duodenum and jejunum, Dr. Holley saw her in consultation and felt that this may well be an ischemic enteritis, but that she was doing quite well, eating, fairly comfortable. She continued to improve, the pain on the day of discharge was further improved from the day before. Her lungs were quite clear. I did reemphasize to her on the day of discharge the need to stop smoking as this may relate to her ischemic enteritis. FINAL DIAGNOSES: 1. Chronic obstructive pulmonary disease. 2. Abdominal pain, possibly duodenal and jejunal ischemia or other form of inflammation. 3. Tobacco use. 4. Alcoholism. DISCHARGE MEDICATIONS: 1. Prednisone 10 mg 3 daily for 3 days, 2 daily for 3 days, then 1 daily. 2. Azithromycin 250 mg daily for 3 more days. 3. Mometasone/formoterol 200/5 two puffs b.i.d. 4. Thiamine 100 mg daily. 5. Lorazepam as prescribed. 6. Potassium chloride 20 mEq b.i.d. 7. Tiotropium 1 capsule daily. 8. Quetiapine 50 to 100 mg at bedtime. 9. Magnesium oxide 400 mg daily. 10. Multivitamin with mineral 1 daily. 11. Albuterol powder 100 mcg every 4 hours. CONDITION ON DISCHARGE: Stable. DISPOSITION ON DISCHARGE: Discharge home. FOLLOWUP: Dorcas Chan NP. The patient last had a colonoscopy about 10 years ago, this could be repeated as an outpatient. She should make an appointment to see Dr. Holley in 2 to 3 weeks. [id number]/[facility] #: [id number] [facility]
== END 2017-10-15 14:30 | disposition home or self-care (01) | DRG 191 ==
LOC: ED 21:38 → MED 10-13 00:50 → OBSVTOIN 10-14 15:00
PROVIDERS: ADMIT Hospitalist; ATTEND Internal Medicine
DX: J44.1 Chronic obstructive pulmonary disease with (acute) exacerbation (principal); K55.9 Vascular disorder of intestine, unspecified; F10.239 Alcohol dependence with withdrawal, unspecified; E87.2 Acidosis; Y90.8 Blood alcohol level of 240 mg/100 ml or more; R10.11 Right upper quadrant pain; F17.210 Nicotine dependence, cigarettes, uncomplicated; E83.42 Hypomagnesemia; E87.6 Hypokalemia; G40.909 Epilepsy, unspecified, not intractable, without status epilepticus; F43.10 Post-traumatic stress disorder, unspecified; I73.9 Peripheral vascular disease, unspecified; W18.30XA Fall on same level, unspecified, initial encounter; F41.9 Anxiety disorder, unspecified; F32.9 Major depressive disorder, single episode, unspecified; K58.9 Irritable bowel syndrome, unspecified; M19.90 Unspecified osteoarthritis, unspecified site; Y92.9 Unspecified place or not applicable; Z79.899 Other long term (current) drug therapy; Z88.8 Allergy status to other drugs, medicaments and biological substances; Z82.49 Family history of ischemic heart disease and other diseases of the circulatory system
CPT/HCPCS: 36415; 70450; 71045; 74177; 80048; 80053; 80320; 83605; 83735; 83880; 84443; 84484; 85025; 85610; 85730; 86140; 87040; 87899; 93005; 94640; 96374; 96375; 99285; 99406; A9270-GY; G0378; G0480; J0696; J1644; J2060; J2930; J3411; J3475; J7512; Q9967

== ENCOUNTER 2017-10-30 13:20 | Emergency (ER) | payer MEDICARE, MEDICAID ==
[2017-10-30] MEDS ORDERED: Ibuprofen TAB* 600 MG PO ONE (15:13)
--- NOTE | 2017-10-30 15:17 | RAD ---
HISTORY: fall COMPARISONS: CT dated June 10, 2017. VIEWS: 6 , frontal and frontal oblique views of the right clavicle with frontal internal rotation and external rotation views of the right humerus. FINDINGS: BONE DENSITY: There is diffuse osteopenia. BONES: There is a transverse comminuted fracture of the surgical neck of the humerus with approximately 1 cm of displacement. Additionally, there is an angulated fracture of the lateral third of the clavicle that is comminuted. There is a chronic fracture noted on previous CT.. JOINTS: There is no arthropathy. ALIGNMENT: There is no dislocation. SOFT TISSUES: Unremarkable. OTHER FINDINGS: None. IMPRESSION: 1. COMMINUTED FRACTURE OF THE PROXIMAL HUMERUS. 2. COMMINUTED FRACTURE OF THE RIGHT CLAVICLE. THERE IS A CHRONIC FRACTURE NOTED ON PREVIOUS CT. ACUTE ON CHRONIC INJURY CANNOT BE EXCLUDED..
--- NOTE | 2017-10-30 15:36 | ED ---
Upper Extremity Pain - HPI Summary HPI Summary: Patient is 67-year-old female who is an alcoholic presenting to the ED with right arm pain after falling late last night. She endorses significant amount of ecchymosis, and limited range of motion, however she feels this area is not fractured. She has a history of fractures due to multiple falls secondary to alcoholism. She denies any other injuries and denies hitting her head. Denies any LOC. Last alcohol intake this morning. - History of Current Complaint Chief Complaint: EDExtremityUpper Stated Complaint: FALL RIGHT ARM PAIN Time Seen by Provider: 10/30/17 13:23 Hx Obtained From: Patient Hx From Patient Unobtainable Due To: Other - ETOH Mechanism Of Injury: Blunt Trauma Onset/Duration: Started Days Ago Timing: Constant Severity Initially: Moderate Severity Currently: Moderate Pain Location: Shoulder Character: Aching Aggravating Factor(s): Movement, Lifting, Flexion Alleviating Factor(s): Rest Associated Signs & Symptoms: Positive: Bruising - significant. Negative: Numbness/Tingling, Diaphoresis, Nausea, Vomiting Related History: Dominant Hand Right - Risk Factors Non-Orthopedic Risk Factor: Negative DVT Risk Factors: Negative Septic Arthritis Risk Factor: Negative Compartment Syndrome Risk Factors: Pain - Allergies/Home Medications Allergies/Adverse Reactions: Allergies Allergy/AdvReac Type Severity Reaction Status Date / Time doxycycline Allergy Intermediate Swelling Verified 10/30/17 13:32 gabapentin Allergy Intermediate Swelling Verified 10/30/17 13:32 prednisone AdvReac made Verified 10/30/17 13:32 patient feel "wired" PMH/Surg Hx/FS Hx/Imm Hx Previously Healthy: No Endocrine/Hematology History: Reports: Hx Anemia - macrocytic anemia Denies: Hx Anticoagulant Therapy, Hx Blood Disorders, Hx Blood Transfusions, Hx Bone Marrow Disease, Hx Diabetes, Hx Systemic Lupus Erythematosus, Hx Sickle Cell Disease, Hx Thyroid Disease, Hx Unexplained Bleeding, Other Endocrine/ Hematological Disorders Cardiovascular History: Reports: Hx Angina, Hx Coronary Artery Disease - carotid artery surgery, Hx Hypercholesterolemia, Hx Hypertension, Other Cardiovascular Problems/Disorders - carotid endarterectomy; hx of murmur Denies: Hx Aneurysm, Hx Angioplasty, Hx Auto Implanted Cardiovert Defib, Hx Cardiac Arrest, Hx Cardiomegaly, Hx Congenital Heart Disease, Hx Congestive Heart Failure, Hx Deep Vein Thrombosis, Hx Embolism, Hx Hypotension, Hx Pacemaker/ICD, Hx Peripheral Vascular Disease, Hx Rheumatic Fever, Hx Syncope, Hx Valvular Heart Disease Respiratory History: Reports: Hx Chronic Bronchitis, Hx Chronic Obstructive Pulmonary Disease (COPD), Hx Pneumonia, Other Respiratory Problems/Disorders - SMOKER Denies: Hx Asthma, Hx Cystic Fibrosis, Hx Lung Cancer, Hx Pleural Effusion, Hx Pulmonary Edema, Hx Pulmonary Embolism, Hx Seasonal Allergies, Hx Sleep Apnea GI History: Reports: Hx Gastroesophageal Reflux Disease - prn, Hx Irritable Bowel, Hx Ulcer, Other GI Disorders - adhesions Denies: Hx Cirrhosis, Hx Crohn's Disease, Hx Diverticulosis, Hx Gall Bladder Disease, Hx Gastrointestinal Bleed, Hx Hiatal Hernia, Hx Jaundice, Hx Obstructive Bowel, Hx Ileostomy, Hx Pyloric Stenosis History: Reports: Other Problems/Disorders - hx of UTI Denies: Hx Acute Renal Failure, Hx Benign Prostatic Hyperplasia, Hx Chronic Renal Failure, Hx Dialysis, Hx Kidney Infection, Hx Kidney Stones, Hx Renal Disease Musculoskeletal History: Reports: Hx Arthritis - osteo arthritis, osteoporosis, Hx Orthopedic Injury - broken fingers, Other Musculoskeletal History - Past injury to R hand. Denies: Hx Back Problems, Hx Bursitis, Hx Congenital Bone Abnormalities, Hx Fibromyalgia, Hx Gout, Hx Osteoporosis, Hx Scoliosis, Hx Tendonitis Sensory History: Reports: Hx Cataracts - both, Hx Contacts or Glasses - doesn't wear them though, Hx Vision Problem, Other Sensory Impairments - floaters Denies: Hx Eye Injury, Hx Eye Prosthesis, Hx Glaucoma, Hx Macular Degeneration, Hx Deafness, Hx Hearing Aid, Hx Hearing Problem Opthamlomology History: Reports: Hx Cataracts - both, Hx Contacts or Glasses - doesn't wear them though, Hx Vision Problem, Other Sensory Impairments - floaters Denies: Hx Eye Injury, Hx Eye Prosthesis, Hx Glaucoma, Hx Macular Degeneration Neurological History: Reports: Hx Headaches - rarely, Hx Seizures - x1 6 years ago at [facility] [place] none since Denies: Hx Dementia, Hx Developmental Delay, Hx Migraine, Hx Spinal Cord Injury, Hx Transient Ischemic Attacks (TIA), Other Neuro Impairments/Disorders Psychiatric History: Reports: Hx Anxiety - PTSD, Hx Depression - depressive disorder, Hx Panic Disorder - PTSD, Hx Post Traumatic Stress Disorder, Hx Inpatient Treatment, Hx Community Mental Health Tx, Hx Suicide Attempt, Hx Substance Abuse - ETOH, Other Psychiatric Issues/Disorders Denies: Hx Attention Deficit Hyperactivity Disorder, Hx Eating Disorder, Hx Schizophrenia, Hx Bipolar Disorder, Hx of Violent Episodes Against Others - Surgical History Surgery Procedure, Year, and Place: TONSILECTOMY ; APPENDECTOMY; X2 ; TUBAL LIGATION; CAROTID ENDERECTOMY (NO STENTINGS) Hx Anesthesia Reactions: Yes - ETHER CAUSED VOMITING - Immunization History Date of Tetanus Vaccine: PT STATES UNSURE Date of Influenza Vaccine: NONE Hx Pertussis Vaccination: No Immunizations Up to Date: No Infectious Disease History: No Infectious Disease History: Denies: Hx Clostridium Difficile, Hx Hepatitis, Hx Human Immunodeficiency Virus (HIV), Hx Shingles, Hx Tuberculosis, Traveled Outside the [place] in Last 30 Days - Family History Known Family History: Positive: Cardiac Disease - Father, Other - father - colon ca, h/o ETOH abuse; mom- alzheimer's dz - Social History Occupation: Unemployed Lives: Alone Alcohol Use: Daily Alcohol Amount: Several beers, per patient Hx Substance Use: No Substance Use Type: Reports: None Substance Use Comment - Amount & Last Used: pt aware of mental & physical risks of etoh, not willing/ready to change Hx Tobacco Use: Yes Smoking Status (MU): Heavy Every Day Tobacco Smoker Type: Cigarettes Amount Used/How Often: 1ppd, smoked for 40 years, did not smoke during pregnancies, stopped for 6 Have You Smoked in the Last Year: Yes Review of Systems Constitutional: Negative Negative: Fever, Chills, Fatigue, Skin Diaphoresis Negative: Palpitations, Chest Pain Negative: Shortness Of Breath, Cough Positive: no symptoms reported Positive: Arthralgia - right upper arm and R clavicle pain Positive: Bruising Neurological: Negative All Other Systems Reviewed And Are Negative: Yes Physical Exam Triage Information Reviewed: Yes Vital Signs On Initial Exam: Initial Vitals Temp Pulse Resp BP Pulse Ox 98.1 F 86 16 123/63 99 10/30/17 13:22 10/30/17 13:22 10/30/17 13:22 10/30/17 13:22 10/30/17 13:22 Vital Signs Reviewed: Yes Appearance: Positive: Well-Appearing, Well-Nourished Skin: Positive: Warm, Skin Color Reflects Adequate Perfusion, Other - right arm bruising Head/Face: Positive: Normal Head/Face Inspection Eyes: Positive: EOMI, SIMBA, Conjunctiva Clear Neck: Positive: Supple, No Lymphadenopathy Respiratory/Lung Sounds: Positive: Clear to Auscultation, Breath Sounds Present Cardiovascular: Positive: RRR, Pulses are Symmetrical in both Upper and Lower Extremities Musculoskeletal: Positive: Pain @ - right upper arm - unable to abduct or adduct Neurological: Positive: Speech Normal Psychiatric: Positive: Affect/Mood Appropriate AVPU Assessment: Alert Diagnostics - Vital Signs Vital Signs Temp Pulse Resp BP Pulse Ox 10/30/17 13:22 98.1 F 86 16 123/63 99 - Laboratory Lab Statement: Any lab studies that have been ordered have been reviewed, and results considered in the medical decision making process. Course/Dx - Course Course Of Treatment: Patient is evaluated for right arm injury. The right clavicle and right humerus is obtained. Both which are comminuted impacted fractures. She is referred to orthopedics. She is endorsing pain, however pain meds are not given as she continues to drink alcohol. I have offered ibuprofen to which she accepts. Sling is given she is okay for discharge at this time and will follow up with orthopedics. - Diagnoses Differential Diagnosis/HQI/PQRI: Positive: Contusion, Fracture (Open), Fracture (Closed), Hematoma Provider Diagnoses: Fracture, humerus, Fracture, clavicle - Physician Notifications Instructed by Provider To: Have Pt Call For Appt. Discharge - Sign-Out/Discharge Documenting (check all that apply): Patient Departure - Discharge Plan Condition: Stable Disposition: HOME Patient Education Materials: Arm Fracture in Adults (ED) Referrals: Addison Abbasi MD [Medical Doctor] - Dorcas Chan NP [Primary Care Provider] - Additional Instructions: Please follow-up with orthopedics within 2-3 days Keep the sling applied at all times Tylenol and ibuprofen for relief - Billing Disposition and Condition Condition: STABLE Disposition: Home
[2017-10-30 15:48] VITALS: BP 110/68
[2017-10-30] MEDS ORDERED: Acetaminophen TAB* 325 MG PO ONE (16:14)
== END 2017-10-30 15:38 | disposition home or self-care (01) ==
LOC: ED 13:20
DX: S42.201A Unspecified fracture of upper end of right humerus, initial encounter for closed fracture (principal); M79.601 Pain in right arm; F17.210 Nicotine dependence, cigarettes, uncomplicated; W19.XXXA Unspecified fall, initial encounter; Y92.9 Unspecified place or not applicable
CPT/HCPCS: 99282; A9270-GY

== ENCOUNTER 2017-11-20 15:12 | Inpatient (IN) | payer MEDICARE, MEDICAID ==
[2017-11-20] MEDS ORDERED: NS 0.9% 500 ML* 500 ML IV ONE ×2 (15:31→16:20)
[2017-11-20 15:59] LABS: ABS Basophils 0.1 10^3/ul (0-0.2); ABS Eosinophils 0.1 10^3/ul (0-0.6); ABS Lymphocytes 1.2 10^3/ul (1.0-4.8); ABS Monocytes 0.5 10^3/ul (0-0.8); ABS Neutrophils 2.8 10^3/ul (1.5-7.7); ABS Nucleated RBC 0 10^3/ul; Eosinophil % 1.9 % (0-6); Hematocrit 39 % (35-47); Hemoglobin 13.8 g/dl (12.0-16.0); Lymphocyte % 25.1 % (25-47); Mean Corpuscular HGB Conc 35 g/dl (31-36); Mean Corpuscular Hemoglobin 41 pg (27-31); Mean Corpuscular Volume 117 fL (80-97); Mean Platelet Volume 7.6 um3 (7.4-10.4); Nucleated Red Blood Cells % 0.1; Platelet Count 171 10^3/ul (150-450); Red Blood Count 3.36 10^6/ul (4.00-5.40); Red Cell Distribution Width 15 % (10.5-15); White Blood Count 4.6 10^3/ul (3.5-10.8)
[2017-11-20 16:21] LABS: EGFR Non-African American 192.6 (>60)
[2017-11-20 16:25] LABS: INR 1.02 (0.77-1.02)
[2017-11-20] MEDS ORDERED: Iodixanol* (CONTRAST) 320 MG/ML 100 ML SDV IV ONE (16:42)
[2017-11-20 16:43] LABS: Urine Appearance Clear; Urine Blood Negative (Negative); Urine Color Yellow; Urine Ketones Negative (Negative); Urine Protein Negative (Negative); Urine Specific Gravity 1.002 (1.010-1.030); Urine Urobilinogen Negative (Negative)
--- NOTE | 2017-11-20 17:15 | RAD ---
Indication: Trauma, hypotensive. CT of the cervical spine was obtained in the axial plane. Sagittal and coronal reconstructed images were obtained. The skull base demonstrates no fracture. Mastoid air cells are well aerated. Degenerative changes of the atlantoaxial joint is noted. The vertebral bodies appear normal in height. There is no fracture noted. Degenerative disc disease at C5-C6 and C6-C7 is noted. Spinal canal appears to be intact. IMPRESSION: Degenerative disc disease at C5-C6 and C6-C7. No fracture is noted.
--- NOTE | 2017-11-20 17:19 | ED ---
Upper Extremity Pain - HPI Summary HPI Summary: This patient is a 67 year old F presenting to [facility] with a chief complaint of 3x falls in the past 24 hours (since 11/19/17). She endorses she broke her right humerus on 10/27/17 from a fall as well. Pt endorses daily EtOH use but she denies it is the cause of her frequent falls; she endorses 3 beers a day, and occasionally wine. She endorses pain from her wrist to elbow RUE with DROM, right lateral rib pain, with diffuse ecchymosis, RUE and RLE edema, upper back pain secondary to using a sling, lower back pain secondary to lying in bed more than normal, dizziness, lightheadedness, and weakness. She notes her most recent fall was today. Pt denies SI. - History of Current Complaint Chief Complaint: EDGeneral Stated Complaint: 941 Time Seen by Provider: 11/20/17 15:28 Hx Obtained From: Patient Mechanism Of Injury: Fall From A Standing Position Onset/Duration: Started Weeks Ago, Traumatic, Still Present Timing: Constant Severity Initially: Moderate Severity Currently: Moderate Pain Location: Shoulder, Arm, Elbow, Forearm Character: Sharp Aggravating Factor(s): Movement Alleviating Factor(s): Nothing Associated Signs & Symptoms: Positive: Swelling, Redness, Bruising, Weakness, Back Pain, Neck Pain. Negative: Fever Related History: Similar Episode/Dx As - right humerus fx 10/27/17. 3x falls past 24 hours. - Allergies/Home Medications Allergies/Adverse Reactions: Allergies Allergy/AdvReac Type Severity Reaction Status Date / Time doxycycline Allergy Intermediate Swelling Verified 10/30/17 13:32 gabapentin Allergy Intermediate Swelling Verified 10/30/17 13:32 prednisone AdvReac made Verified 10/30/17 13:32 patient feel "wired" PMH/Surg Hx/FS Hx/Imm Hx Endocrine/Hematology History: Reports: Hx Anemia - macrocytic anemia Denies: Hx Anticoagulant Therapy, Hx Blood Disorders, Hx Blood Transfusions, Hx Bone Marrow Disease, Hx Diabetes, Hx Systemic Lupus Erythematosus, Hx Sickle Cell Disease, Hx Thyroid Disease, Hx Unexplained Bleeding, Other Endocrine/ Hematological Disorders Cardiovascular History: Reports: Hx Angina, Hx Coronary Artery Disease - carotid artery surgery, Hx Hypercholesterolemia, Hx Hypertension, Other Cardiovascular Problems/Disorders - carotid endarterectomy; hx of murmur Denies: Hx Aneurysm, Hx Angioplasty, Hx Auto Implanted Cardiovert Defib, Hx Cardiac Arrest, Hx Cardiomegaly, Hx Congenital Heart Disease, Hx Congestive Heart Failure, Hx Deep Vein Thrombosis, Hx Embolism, Hx Hypotension, Hx Pacemaker/ICD, Hx Peripheral Vascular Disease, Hx Rheumatic Fever, Hx Syncope, Hx Valvular Heart Disease Respiratory History: Reports: Hx Chronic Bronchitis, Hx Chronic Obstructive Pulmonary Disease (COPD), Hx Pneumonia, Other Respiratory Problems/Disorders - SMOKER Denies: Hx Asthma, Hx Cystic Fibrosis, Hx Lung Cancer, Hx Pleural Effusion, Hx Pulmonary Edema, Hx Pulmonary Embolism, Hx Seasonal Allergies, Hx Sleep Apnea GI History: Reports: Hx Gastroesophageal Reflux Disease - prn, Hx Irritable Bowel, Hx Ulcer, Other GI Disorders - adhesions Denies: Hx Cirrhosis, Hx Crohn's Disease, Hx Diverticulosis, Hx Gall Bladder Disease, Hx Gastrointestinal Bleed, Hx Hiatal Hernia, Hx Jaundice, Hx Obstructive Bowel, Hx Ileostomy, Hx Pyloric Stenosis History: Reports: Other Problems/Disorders - hx of UTI Denies: Hx Acute Renal Failure, Hx Benign Prostatic Hyperplasia, Hx Chronic Renal Failure, Hx Dialysis, Hx Kidney Infection, Hx Kidney Stones, Hx Renal Disease Musculoskeletal History: Reports: Hx Arthritis - osteo arthritis, osteoporosis, Hx Orthopedic Injury - broken fingers, Other Musculoskeletal History - Past injury to R hand. Denies: Hx Back Problems, Hx Bursitis, Hx Congenital Bone Abnormalities, Hx Fibromyalgia, Hx Gout, Hx Osteoporosis, Hx Scoliosis, Hx Tendonitis Sensory History: Reports: Hx Cataracts - both, Hx Contacts or Glasses - doesn't wear them though, Hx Vision Problem, Other Sensory Impairments - floaters Denies: Hx Eye Injury, Hx Eye Prosthesis, Hx Glaucoma, Hx Macular Degeneration, Hx Deafness, Hx Hearing Aid, Hx Hearing Problem Opthamlomology History: Reports: Hx Cataracts - both, Hx Contacts or Glasses - doesn't wear them though, Hx Vision Problem, Other Sensory Impairments - floaters Denies: Hx Eye Injury, Hx Eye Prosthesis, Hx Glaucoma, Hx Macular Degeneration EENT History: Denies: Hx Deafness Neurological History: Reports: Hx Headaches - rarely, Hx Seizures - x1 6 years ago at [facility] [place] none since Denies: Hx Dementia, Hx Developmental Delay, Hx Migraine, Hx Spinal Cord Injury, Hx Transient Ischemic Attacks (TIA), Other Neuro Impairments/Disorders Psychiatric History: Reports: Hx Anxiety - PTSD, Hx Depression - depressive disorder, Hx Panic Disorder - PTSD, Hx Post Traumatic Stress Disorder, Hx Inpatient Treatment, Hx Community Mental Health Tx, Hx Suicide Attempt, Hx Substance Abuse - ETOH, Other Psychiatric Issues/Disorders Denies: Hx Attention Deficit Hyperactivity Disorder, Hx Eating Disorder, Hx Schizophrenia, Hx Bipolar Disorder, Hx of Violent Episodes Against Others - Surgical History Surgery Procedure, Year, and Place: TONSILECTOMY ; APPENDECTOMY; X2 ; TUBAL LIGATION; CAROTID ENDERECTOMY (NO STENTINGS) Hx Anesthesia Reactions: Yes - ETHER CAUSED VOMITING - Immunization History Date of Tetanus Vaccine: PT STATES UNSURE Date of Influenza Vaccine: NONE Infectious Disease History: No Infectious Disease History: Denies: Hx Clostridium Difficile, Hx Hepatitis, Hx Human Immunodeficiency Virus (HIV), Hx Shingles, Hx Tuberculosis, Traveled Outside the [place] in Last 30 Days - Family History Known Family History: Positive: Cardiac Disease - Father, Other - father - colon ca, h/o ETOH abuse; mom- alzheimer's dz - Social History Lives: Alone Alcohol Use: Daily Alcohol Amount: 3beers/day Hx Substance Use: No Substance Use Type: Reports: None Substance Use Comment - Amount & Last Used: pt aware of mental & physical risks of etoh, not willing/ready to change Hx Tobacco Use: Yes Smoking Status (MU): Light Every Day Tobacco Smoker Type: Cigarettes Amount Used/How Often: 1ppd, smoked for 40 years, did not smoke during pregnancies, stopped for 6 Have You Smoked in the Last Year: Yes Review of Systems Negative: Fever, Chills Negative: Erythema Negative: Sore Throat Positive: Chest Pain - right lateral Negative: Shortness Of Breath, Cough Positive: Other - poor food intake. Negative: Abdominal Pain, Vomiting, Nausea Negative: dysuria, flank pain Positive: Arthralgia - RUE, Myalgia - RUE, Decreased ROM - RUE, Edema - RUE, RLE Positive: Bruising. Negative: Rash Neurological: Other - Dizziness, lightheadedness Positive: Weakness, Syncope - 3x falls Negative: Other - SI All Other Systems Reviewed And Are Negative: Yes Physical Exam - Summary Physical Exam Summary: Constitutional: Well-developed, Well-nourished, Alert. (-) Distressed Skin: Warm, Dry. Overlying ecchymosis on right lateral chest 10th-11th ribs, right shoulder ecchymosis. HENT: Normocephalic; Atraumatic Eyes: Conjunctiva normal Neck: Musculoskeletal ROM normal neck. (-) JVD, (-) Stridor, (-) Tracheal deviation Cardio: Rhythm regular, rate normal, Heart sounds normal; Intact distal pulses; The pedal pulses are 2+ and symmetric. Radial pulses are 2+ and symmetric. (-) Murmur Pulmonary/Chest wall: Effort normal. (-) Respiratory distress, (-) Rales. (+) bilateral inspiratory and expiratory wheezes, (+) bilateral rhonchi. Abd: Soft, (-) epigastric tenderness, (-) Distension, (-) Guarding, (-) Rebound Musculoskeletal: (+) Edema of right forearm, RLE. RUE TTP and DROM, RLE not TTP. Full ROM of hips. Lymph: (-) Cervical adenopathy Neuro: Alert, Oriented x3 Psych: Mood and affect Normal Triage Information Reviewed: Yes Vital Signs On Initial Exam: Initial Vitals Temp Pulse Resp BP Pulse Ox 98.5 F 74 16 78/57 92 11/20/17 15:21 11/20/17 15:21 11/20/17 15:21 11/20/17 15:21 11/20/17 15:21 Vital Signs Reviewed: Yes Diagnostics - Vital Signs Vital Signs Temp Pulse Resp BP Pulse Ox 11/20/17 15:48 67 14 77/55 99 11/20/17 15:40 98 11/20/17 15:23 75 17 78/57 91 11/20/17 15:21 98.5 F 83 15 78/57 95 - Laboratory Lab Results: Lab Results 11/20/17 11/20/17 11/20/17 Range/Units 15:32 15:32 15:32 WBC 4.6 (3.5-10.8) 10^3/ul RBC 3.36 L (4.00-5.40) 10^6/ul Hgb 13.8 (12.0-16.0) g/dl Hct 39 (35-47) % MCV 117 H (80-97) fL MCH 41 H (27-31) pg MCHC 35 (31-36) g/dl RDW 15 (10.5-15) % Plt Count 171 (150-450) 10^3/ul MPV 7.6 (7.4-10.4) um3 Neut % (Auto) 59.8 (38-83) % Lymph % (Auto) 25.1 (25-47) % [place] % (Auto) 10.2 H (0-7) % Eos % (Auto) 1.9 (0-6) % Baso % (Auto) 3.0 H (0-2) % Absolute Neuts (auto) 2.8 (1.5-7.7) 10^3/ul Absolute Lymphs (auto) 1.2 (1.0-4.8) 10^3/ul Absolute Monos (auto) 0.5 (0-0.8) 10^3/ul Absolute Eos (auto) 0.1 (0-0.6) 10^3/ul Absolute Basos (auto) 0.1 (0-0.2) 10^3/ul Absolute Nucleated RBC 0 10^3/ul Nucleated RBC % 0.1 INR (Anticoag Therapy) (0.77-1.02) APTT (26.0-36.3) seconds Sodium 127 L (135-145) mmol/L Potassium 3.1 L (3.5-5.0) mmol/L Chloride 90 L (101-111) mmol/L Carbon Dioxide 26 (22-32) mmol/L Anion Gap 11 (2-11) mmol/L BUN 3 L (6-24) mg/dL Creatinine 0.34 L (0.51-0.95) mg/dL Est GFR ( Amer) 233.1 (>60) Est GFR (Non-Af Amer) 192.6 (>60) BUN/Creatinine Ratio 8.8 (8-20) Glucose 79 (70-100) mg/dL Lactic Acid 2.9 H* (0.5-2.0) mmol/L Calcium 9.3 (8.6-10.3) mg/dL Total Bilirubin 0.90 (0.2-1.0) mg/dL AST 25 (13-39) U/L ALT 11 (7-52) U/L Alkaline Phosphatase 86 (34-104) U/L Troponin I 0.00 (<0.04) ng/mL Total Protein 6.2 L (6.4-8.9) g/dL Albumin 3.9 (3.2-5.2) g/dL Globulin 2.3 (2-4) g/dL Albumin/Globulin Ratio 1.7 (1-3) TSH 2.06 (0.34-5.60) mcIU/mL Urine Color Urine Appearance Urine pH (5-9) Ur Specific [place] (1.010-1.030) Urine Protein (Negative) Urine Ketones (Negative) Urine Blood (Negative) Urine Nitrate (Negative) Urine Bilirubin (Negative) Urine Urobilinogen (Negative) Ur Leukocyte Esterase (Negative) Urine Glucose (Negative) Salicylates < 2.50 (<30) mg/dL Urine Opiates Screen (None Detect) Acetaminophen < 15 mcg/mL Ur Barbiturates Screen (None Detect) Ur Phencyclidine Scrn (None Detect) Ur Amphetamines Screen (None Detect) U Benzodiazepines Scrn (None Detect) Urine Cocaine Screen (None Detect) U Cannabinoids Screen (None Detect) Serum Alcohol 297 H (<10) mg/dL 11/20/17 11/20/17 11/20/17 Range/Units 15:32 16:31 16:31 WBC (3.5-10.8) 10^3/ul RBC (4.00-5.40) 10^6/ul Hgb (12.0-16.0) g/dl Hct (35-47) % MCV (80-97) fL MCH (27-31) pg MCHC (31-36) g/dl RDW (10.5-15) % Plt Count (150-450) 10^3/ul MPV (7.4-10.4) um3 Neut % (Auto) (38-83) % Lymph % (Auto) (25-47) % [place] % (Auto) (0-7) % Eos % (Auto) (0-6) % Baso % (Auto) (0-2) % Absolute Neuts (auto) (1.5-7.7) 10^3/ul Absolute Lymphs (auto) (1.0-4.8) 10^3/ul Absolute Monos (auto) (0-0.8) 10^3/ul Absolute Eos (auto) (0-0.6) 10^3/ul Absolute Basos (auto) (0-0.2) 10^3/ul Absolute Nucleated RBC 10^3/ul Nucleated RBC % INR (Anticoag Therapy) 1.02 (0.77-1.02) APTT 35.5 (26.0-36.3) seconds Sodium (135-145) mmol/L Potassium (3.5-5.0) mmol/L Chloride (101-111) mmol/L Carbon Dioxide (22-32) mmol/L Anion Gap (2-11) mmol/L BUN (6-24) mg/dL Creatinine (0.51-0.95) mg/dL Est GFR ( Amer) (>60) Est GFR (Non-Af Amer) (>60) BUN/Creatinine Ratio (8-20) Glucose (70-100) mg/dL Lactic Acid (0.5-2.0) mmol/L Calcium (8.6-10.3) mg/dL Total Bilirubin (0.2-1.0) mg/dL AST (13-39) U/L ALT (7-52) U/L Alkaline Phosphatase (34-104) U/L Troponin I (<0.04) ng/mL Total Protein (6.4-8.9) g/dL Albumin (3.2-5.2) g/dL Globulin (2-4) g/dL Albumin/Globulin Ratio (1-3) TSH (0.34-5.60) mcIU/mL Urine Color Yellow Urine Appearance Clear Urine pH 7.0 (5-9) Ur Specific [place] 1.002 L (1.010-1.030) Urine Protein Negative (Negative) Urine Ketones Negative (Negative) Urine Blood Negative (Negative) Urine Nitrate Negative (Negative) Urine Bilirubin Negative (Negative) Urine Urobilinogen Negative (Negative) Ur Leukocyte Esterase Negative (Negative) Urine Glucose Negative (Negative) Salicylates (<30) mg/dL Urine Opiates Screen None detected (None Detect) Acetaminophen mcg/mL Ur Barbiturates Screen None detected (None Detect) Ur Phencyclidine Scrn None detected (None Detect) Ur Amphetamines Screen None detected (None Detect) U Benzodiazepines Scrn None detected (None Detect) Urine Cocaine Screen None detected (None Detect) U Cannabinoids Screen None detected (None Detect) Serum Alcohol (<10) mg/dL Result Diagrams: 11/20/17 15:32 11/20/17 15:32 Lab Statement: Any lab studies that have been ordered have been reviewed, and results considered in the medical decision making process. - Radiology R shoulder Xray Interpretation: Positive (See Comments) Radiology Interpretation Completed By: Radiologist - Comminuted fracture of the right humeral head with overriding of the fracture fragment as well as fracture of the midshaft of the right clavicle. Dr. Escalante has reviewed this report. R elbow Xray Interpretation: Positive (See Comments) Radiology Interpretation Completed By: Radiologist - Anterior fat pad sign however no definite fracture is identified. Dr. Escalante has reviewed this report. - CT C-spine CT Interpretation Completed By: Radiologist - Degenerative disc disease at C5- C6 and C6-C7. No fracture is noted. Dr. Escalante has reviewed this report. C/A/P CT Interpretation: Positive (See Comments) CT Interpretation Completed By: Radiologist - Comminuted fracture of the right humeral head with soft tissue swelling. No pneumothorax or hemothorax is noted. No retroperitoneal hematoma is identified. Lung prajapati appear clear. No intraperitoneal hematoma or abdominal aortic aneurysm is noted. Old injury of the right hip greater trochanter is noted. Dr. Escalante has reviewed this report. Brain CT Interpretation: No Acute Changes CT Interpretation Completed By: Radiologist - No definite intracranial mass or hemorrhage is noted. Dr. Escalante has reviewed this report. - EKG 1548 Cardiac Rate: NL - 72 EKG Rhythm: Sinus Rhythm Ectopy: None EKG Interpretation: No STEMI, septal Q-waves Re-Evaluation - Re-Evaluation First Eval Re-Evaluation Time: 22:47 Change: Worse Comment: Pt looks pretty drowsy, complaining of severe arm pain. Course/Dx - Course Assessment/Plan: A 67-year-old F presents to the ED with a CC of RUE pain for 3 weeks. (+) RUE swelling, erythema, pain, right shoulder ecchymosis, right lateral chest eccymosis and tenderness, and DROM of the RUE. (-). 10/27/17 fell and was dx with fx right humerus. She endorses 3 falls in the past 24 hours. Pt endorses drinking 3 beers a day, but denies her drinking is contributing to her increase in falls. An EKG reveals NSR at 72 BPM with no STEMI and septal Q- waves. In the ED course, pt was given contrast and nl saline. A CT c-spine reveals degenerative disc disease at C5-C6 and C6-C7. No fracture is noted. A CT C/A/P reveals a comminuted fracture of the right humeral head with soft tissue swelling. No pneumothorax or hemothorax is noted. No retroperitoneal hematoma is identified. Lung prajapati appear clear. No intraperitoneal hematoma or abdominal aortic aneurysm is noted. Old injury of the right hip greater trochanter is noted. A CT brain was (-). A R shoulder XR revealed a comminuted fracture of the right humeral head with overriding of the fracture fragment as well as fracture of the midshaft of the right clavicle. A R elbow XR revealed an anterior fat pad sign however no definite fracture is identified. The patient 's labs show abnl RBC, MCV, MCH, mono %, baso %, Na+, K+, Cl-, BUN, creatinine, total protein, urine specific gravity, a lactic acid of 2.9, and a serum alcohol of 297. Per a chart review, the pt's baseline systolic BP is from 120- 140. - Diagnoses Provider Diagnoses: Shoulder fracture, right, Alcohol intoxication, Hypotension, Hypovolemia - Physician Notifications Discussed Care of Patient With: Bryan Presley Time Discussed With Above Provider: 21:25 Instructed by Provider To: Other - Will consult. - Critical Care Time Critical Care Time: 30-74 min - 45 Discharge - Sign-Out/Discharge Documenting (check all that apply): Sign-Out Patient Signing out patient TO: Tyrel Bradford - Response to fluids, hospitalist consult. - Discharge Plan Referrals: Dorcas Chan, [employer] [Primary Care Provider] - - Attestation Statements Document Initiated by Scribe: Yes Documenting Scribe: Trace Buckley Provider For Whom Scribe is Documenting (Include Credential): Dr. Gwyn Escalante MD Scribe Attestation: Trace Juárez, scribed for Dr. Gwyn Escalante MD on 11/20/17 at 2244.
--- NOTE | 2017-11-20 17:20 | RAD ---
Indication: Fall, hypotensive CT of the chest, abdomen and pelvis was performed after IV contrast administration. Coronal and sagittal reconstructed images were obtained. Inferior thyroid lobes are unremarkable. There is a comminuted fracture of the right humeral head with impaction. There appears to be soft tissue swelling and likely hematoma surrounding the right shoulder joint. The left shoulder is intact. The trachea and major bronchi appear patent. The lung prajapati demonstrate no pleural fluid, nodules or masses. The thoracic spine demonstrates scoliosis however no compression fracture is identified. Old healed rib fractures on the right are noted. No pleural fluid is identified. CT of the abdomen and pelvis demonstrates liver to be normal in size. No focal lesions or intrahepatic ductal dilatation is noted. Lobulated liver suspicious for cirrhosis is noted. The gallbladder demonstrates no calcified gallstones. No pericholecystic fluid is noted. The spleen is normal in size. No adrenal masses are noted. The kidneys demonstrate symmetric nephrograms without focal lesions. Atherosclerotic aorta is noted. No dilated loops of bowel are noted. CT of the pelvis demonstrates uterus and ovaries to be unremarkable. No dilated loops of bowel are noted. Urinary bladder is unremarkable. Pelvic ring is intact. Degenerative changes of the hip joints are noted. Chronic old injury of the right greater trochanter is noted which was present in September 2017. IMPRESSION: Comminuted fracture of the right humeral head with soft tissue swelling. No pneumothorax or hemothorax is noted. No retroperitoneal hematoma is identified. Lung prajapati appear clear. No intraperitoneal hematoma or abdominal aortic aneurysm is noted. Old injury of the right hip greater trochanter is noted.
--- NOTE | 2017-11-20 17:32 | RAD ---
Indication: Fall, hypertensive. CT of the brain performed without IV contrast. Ventricular structures are midline. No midline shift is noted. Central and cortical atrophy is noted. There is no evidence of intracranial mass or hemorrhage. No other high or low density lesions are identified. When compared to previous exam of October 12, 2017 no significant change is noted. IMPRESSION: No definite intracranial mass or hemorrhage is noted.
--- NOTE | 2017-11-20 17:55 | RAD ---
Indication: Right elbow pain. 4 views of the right elbow are reviewed. Diffuse osteopenia is noted. There is an anterior fat pad sign but this appears to be within normal limits. No obvious fracture is noted. IMPRESSION: Anterior fat pad sign however no definite fracture is identified.
--- NOTE | 2017-11-20 17:56 | RAD ---
Indication: Right shoulder pain. 4 views of the right shoulder demonstrates comminuted fracture of the right humeral head with overriding of the fracture fragments. Fracture of the right clavicle is also present. IMPRESSION: Comminuted fracture of the right humeral head with overriding of the fracture fragment as well as fracture of the midshaft of the right clavicle.
--- OUTSIDE RECORDS SUMMARY | 2017-11-20 18:45 | XMS REPORT ---
:1950 External Reference #:[id number] Author Organization [facility] Address [address] [place] [address] [place] [address] Phone [phone] Care Team Providers Name Role Phone Dorcas Chan NP Primary Care Physician Unavailable Payers Type Date Identification Numbers Payment Provider Subscriber Medicare Primary Policy Number: [id number] Medicare Janeth Batista Gell PayID: [id number] [address] [place] [address] [facility] Policy Number: [id number] Medicaid Janeth Bland Group Name: 1 1 [address] PayID: [id number] [place] [address] Workers Compensation Onset: 2015 Policy Number: Osito Allen E Gell [id number] PayID: [id number] [address] [address] [place] [address] Problems Date Description Provider Status Onset: 01/29/2009 Anxiety state Rosalinda Ortega M.D. Active Onset: 01/29/2009 Asthma without status asthmaticus Rosalinda Ortega M.D. Active Onset: 11/17/2009 Nondependent alcohol abuse, Rosalinda Ortega M.D. Active continuous Onset: 10/31/2017 Closed fracture of surgical neck Sia Burt MD Active of humerus Onset: 10/15/2017 Right upper quadrant pain Sam Castro M.D. Active Onset: 10/15/2017 Alcohol withdrawal syndrome Sam Castro M.D. Active Onset: 10/15/2017 Chronic obstructive pulmonary Sam Castro M.D. Active disease w (acute) exacerbation Onset: 10/14/2017 Acidosis Sam Castro M.D. Active Onset: 10/13/2017 Alcohol dependence, uncomplicated Bryan Presley II, M.D. Active Onset: 10/13/2017 Chronic obstructive lung disease Bryan Presley II, M.D. Active Onset: 10/13/2017 Abdominal pain Bryan Presley II, M.D. 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 Cigarette Use Current Cigarette Smoker 5-10 smoked 37 yrs Cigarettes Daily Cigarette Use current cigarette smoker Quit for 2 years on willpower anc Chantix. Started a walking program. Recently startedrf up again ETOH Use Has consumed alcohol in the past ETOH Use Drinks Alcoholic Beverages Currently since kids are Occasionally home 3 beers a day. Not normally. Usually does not drink at all ETOH Use Denies alcohol use Smoking Heavy tobacco smoker (more than 10 cigarettes/day) Daily Caffeine 2 cups coffee daily Exercise Type/Frequency Does not exercise Allergies, Adverse Reactions, Alerts Date Description Reaction Status Severity Comments 08/10/2015 Neurontin edema active Medications Medication Date Status Form Strength Qnty SIG Indications Ordering Provider Ibuprofen 10/31/ Active Tablets 600mg 90tabs three times S42.A Zaneb 2017 a day take MD [place] with food Percocet 10/31/ Active Tablets 5-325mg 20tabs take 1 tabs S42.2017 as needed MD [place] for pain every 6 hours. do not combine with tylenol Lorazepam / Active Tablets 1mg 60tabs 1 by mouth Unknown 0000 once daily as needed Proair HFA / Active Aerosol 108(90Base Storm, 0000 ) mcg/Act ChitowBRE pabon Potassium / Active Unknown Magnesium 0000 B Complex / Active Unknown 0000 Vitamin D / Active Capsules daily Unknown (Ergocalcifer 0000 ol) Prednisone / Active taper dose Unknown 0000 Ondansetron / Active Tablets 4mg [place], 0000 Dispers Chris Pineda MD Dulera / Active Aerosol 200-5mcg/A [address] twice a day Medihoney 08/11/ Hx Gel 1units fill wound Eliseo F. Wound/Burn 2016 - daily [place], Dressing M.D. 2017 Guaifenesin 02/09/ Hx Syrup 100mg/5ML 120ml 2 teaspoons 787.91 2009 - PO q 4 h [place], 08/08/ prn M.D. 2015 Ventolin HFA 01/03/ Hx Aers 108(90Base 18unit Inhale 2 2009 - ) mcg/ac s Puffs 4 [place], 08/08/ Times A Day M.D. 2015 as Needed. Avelox 12/16/ Hx Tablets 400mg 3tabs 1 tablet 2009 - daily [place], M.D. 2009 Tramadol HCL 11/23/ Hx Tablets 50mg 40tabs 1-2 tablets 784.0 2009 - every 6 [place], 08/08/ hours M.D. 2015 Aspirin 11/18/ Hx Tablets DR 81mg 1 by mouth 2009 - once daily [place], M.D. 2015 Simvastatin 11/18/ Hx Tablets 10mg 30tabs Take One 2009 - Tablet By [place], 08/08/ Mouth Every M.D. 2016 Day AT Bedtime. Spiriva 01/28/ Hx Capsules 18mcg 30caps 1 786.2 Rosalinda Handihaler 2008 - inhalation [place], 08/08/ in am M.D. 2015 Albuterol 01/11/ Hx 17gm 2 puffs 4 [facility] Inhaler 2008 - times a day [place], 02/10/ as needed M.D. 2009 Asa 12/22/ Hx 81mg 1 tablet 2008 - daily [place], M.D. 2009 Wellbutrin SR 12/22/ Hx Tablets ER 200mg po daily 2008 - HR [place], M.D. 2009 Calcium-D 12/22/ Hx Capsules 600-200mg- 60caps 1 po daily 2008 - Un [place], M.D. 2009 Lunesta 12/22/ Hx Tablets 3mg 30tabs 1 by mouth 2008 - at bedtime [place], M.D. 2015 Geodon 12/22/ Hx Capsules 40mg 30caps po qam Rosalinda 2009 - [place], M.D. 2008 Klonopin 12/22/ Hx Tablets 1mg 60tabs 1 po bid Rosalinda 2009 - [place], M.D. 2008 Seroquel 12/22/ Hx Tablets 100mg 90tabs 1 tablet at Rosalinda 2009 - bedtime [place], M.D. 2015 Adderall 12/22/ Hx Tablets 5mg 30tabs one prn Rosalinda 2009 - [place], M.D. 2008 Wellbutrin SR 00/ Hx Tablets ER 100mg 60tabs 1 po qd Unknown 0000 - 12HR 2009 Aspir-81 00/ Hx Tablets DR 81mg 1 po qd Unknown - 2009 Calcium-Vitam / Hx Tablets 500-125 qd Unknown in D - 2009 Multi Vitamin / Hx Tablets 1 po qd Unknown - 2009 Seroquel / Hx Tablets 50mg 60tabs 1 po qhs Unknown 0000 - prn 2008 Zocor / Hx Tablets 10mg 30tabs 1 tablet at Rosalinda 0000 - bedtime [place], M.D. 2009 Geodon /00/ Hx Capsules 40mg po at hs Unknown 0000 - prn 2008 Klonopin 00/ Hx Tablets 1mg 90tabs 1 tablet Rosalinda 0000 - 2-3 times [place], M.D. 2009 Adderall /00/ Hx Tablets 5mg 30tabs 1/2 prn Unknown - 2008 Pristiq /00/ Hx Tablets ER Unknown 0000 - 24HR 2009 Chantix 00/ Hx Tablets 1mg 60tabs 1 Tablet Rosalinda - Twice A Day [place] M.D. 2009 Wellbutrin /00/ Hx Tablets 100mg 30tabs 1 tablet Unknown 0000 - daily 2009 Oxycodone HCL 00/ Hx Tablets 5mg [place], 0000 - [place], 2017 Sulfamethoxaz /00/ Hx Tablets 800-160mg Unknown ole/Trimethop 0000 - rim DS 2015 Etodolac /00/ Hx Tablets 400mg Unknown - 2015 Amoxicillin/C 00/00/ Hx Tablets 875-125mg Blegen, lavulanate 0000 - [place]isell, Potassium 2015 Cephalexin / Hx Tablets 500mg one three Unknown 0000 - times daily 2017 Naproxen / Hx Tablets Unsure 1 tablet Unknown 0000 - with food 08/30/ by mouth 2018 twice a day Seroquel / Hx Tablets 50mg take 1 Unknown 0000 - tablet by 08/30/ mouth every 2018 night at bedtime Immunizations CPT Code Status Date Vaccine Lot # [id number] Given 11/18/2009 Influenza Virus 3Yrs & Over [id number] Given 12/22/2008 Influenza Virus 3Yrs & Over [id number] Vital Signs Date Vital Result Comment 11/08/2017 Height 63.5 inches 5'3.50" Weight 129.00 lb Heart Rate 80 /min BP Systolic 138 mmHg BP Diastolic 80 mmHg Respiratory Rate 18 /min Pain Level 10 BMI (Body Mass Index) 22.5 kg/m2 10/31/2017 Height 63.5 inches 5'3.50" Weight 129.00 lb Heart Rate 82 /min BP Systolic Sitting 126 mmHg BP Diastolic Sitting 70 mmHg Respiratory Rate 16 /min Pain Level 9 BMI (Body Mass Index) 22.5 kg/m2 10/24/2015 Height 63.5 inches 5'3.50" Weight 124.12 lb Heart Rate 88 /min BP Systolic Sitting 158 mmHg BP Diastolic Sitting 68 mmHg Respiratory Rate 14 /min Body Temperature 98.8 F BMI (Body Mass Index) 21.6 kg/m2 08/10/2015 Height 63.5 inches 5'3.50" Weight 160.00 lb Heart Rate 76 /min Respiratory Rate 16 /min Pain Level 6 BMI (Body Mass Index) 27.9 kg/m2 02/09/2010 Heart Rate 80 /min BP Systolic 160 mmHg BP Diastolic 88 mmHg Body Temperature 98.5 F 12/12/2009 Weight 166.50 lb Heart Rate 84 /min BP Systolic Sitting 140 mmHg BP Diastolic Sitting 80 mmHg Body Temperature 98.7 F O2 % BldC Oximetry 97 % 11/23/2009 Weight 166.12 lb Heart Rate 62 /min BP Systolic 118 mmHg BP Diastolic 88 mmHg 11/18/2009 Weight 164.50 lb Heart Rate 62 /min BP Systolic 130 mmHg BP Diastolic 80 mmHg 03/29/2009 Weight 159.00 lb Heart Rate 92 /min BP Systolic Sitting 110 mmHg BP Diastolic Sitting 70 mmHg Body Temperature 97.6 F 2009 Weight 160.50 lb Heart Rate 80 /min BP Systolic Sitting 154 mmHg BP Diastolic Sitting 80 mmHg Respiratory Rate 16 /min Body Temperature 98.4 F 12/22/2008 Weight 163.50 lb Heart Rate 84 /min BP Systolic Sitting 130 mmHg BP Diastolic Sitting 84 mmHg Respiratory Rate 16 /min Body Temperature 98.6 F 12/21/2008 Height 63 inches 5'3" Weight 166.00 lb Heart Rate 78 /min BP Systolic Sitting 120 mmHg BP Diastolic Sitting 85 mmHg BMI (Body Mass Index) 29.4 kg/m2 12/09/2008 Height 63 inches 5'3" Weight 166.75 lb Heart Rate 66 /min BP Systolic Sitting 124 mmHg BP Diastolic Sitting 72 mmHg BMI (Body Mass Index) 29.5 kg/m2 09/01/2008 Height 63 inches 5'3" Weight 173.00 lb Heart Rate 91 /min BP Systolic Sitting 130 mmHg BP Diastolic Sitting 80 mmHg BP Systolic Standing 130 mmHg BP Diastolic Standing 80 mmHg BP Systolic Lying Down 140 mmHg BP Diastolic Lying Down 80 mmHg Respiratory Rate 16 /min BMI (Body Mass Index) 30.6 kg/m2 Results Test Date Test Result H/L Range Note Basic Metabolic Panel 11/06/2017 Sodium 127 mmol/L Low 135-145 Potassium 3.5 mmol/L 3.5-5.0 Chloride 93 mmol/L Low 101-111 Co2 Carbon Dioxide 27 mmol/L 22-32 Anion Gap 7 mmol/L 2-11 Glucose 128 mg/dL High 70-100 Blood Urea Nitrogen 7 mg/dL 6-24 Creatinine 0.34 mg/dL Low 0.51-0.95 BUN/Creatinine Ratio 20.6 High 8-20 Calcium 8.8 mg/dL 8.6-10.3 Egfr Non- 192.6 >60 Egfr 233.1 >60 1 Laboratory test finding 11/06/2017 Vitamin D Total 25(Oh) 24.0 ng/mL 20- 50 Laboratory test finding 08/08/2014 Inr 0.88 0.78-1.07 Activated Partial Thrombo Time 34.3 seconds 26.0-36.3 Blood Culture 05/15/2011 M <SEE NOTE> 2 O&P: Giardia/Crypto 03/01/2010 O P: Giardia and cryp <SEE NOTE> 3, 4 Screen Giardia/Crypto Screen O P: Giardia/Crypto Screen NEGATIVE BY [facility] <SEE NOTE> 3, 5 Comp Metabolic Panel 02/09/2010 Sodium 138 mmol/L 135-145 Potassium 3.6 mmol/L 3.5-5.0 Chloride 103 mmol/L 101-111 Co2 (Carbon Dioxide) 26.0 mmol/L 22-32 Anion Gap 9.0 mmol/L 2-11 6 Glucose 116 mg/dL High 70-100 7 BUN 3 mg/dL Low 6-24 Creatinine 0.60 mg/dL 0.50-1.40 One Over Creatinine 1.60 BUN/Creatinine Ratio 5.0 Low 8-20 Calcium 10.4 mg/dL High 8.1-9.9 Total Protein 6.7 GM/DL 6.2-8.1 Albumin 4.3 GM/DL 3.6-5.4 Globulin 2.4 GM/DL 2-4 Albumin/Globulin Ratio 1.8 1-3 Bilirubin Total 1.4 mg/dL 0.4-1.5 8 Alkaline Phosphatase 62 U/L 30-110 Alt (SGPT) 31 U/L 14-54 Ast (Sgot) 44 U/L High 12-42 eGFR Non- 108.8 > 60 eGFR 131.6 > 60 9 CBC With Electronic Diff 02/09/2010 White Blood Count 8.5 CUMM 4.8-10.8 Red Cell Count 4.32 CUMM 4.2-5.4 Hemoglobin 16.4 g/dL High 12.0-16.0 Hematocrit 47 % 35-47 Mean Corpuscular Volume 108 um3 High 79-97 Mean Corpuscular Hemoglob 38 pg High 27-31 Mean Corpuscular HGB Cone 35 g/dL 32-36 Redcell Distribution WDTH 15 % 10.5-15 Platelet Count 189 CUMM 150-450 Mean Platelet Volume 7.8 um3 7.4-10.4 10 Manual Differential 02/09/2010 Polysegmented Neutrophil 55 % 38-83 Lymphocyte 37 % 25-47 Monocyte 6 % 0-13 Eosinophil 2 % 0-6 Absolute Neutrophil Count 4.6 Anisocytosis SLIGHT Comp Metabolic Panel 01/21/2010 Sodium 134 mmol/L Low 135-145 Potassium 3.2 mmol/L Low 3.5-5.0 Chloride 100 mmol/L Low 101-111 Co2 (Carbon Dioxide) 26.0 mmol/L 22-32 Anion Gap 8.0 mmol/L 2-11 11 Glucose 110 mg/dL High 70-100 12 BUN 7 mg/dL 6-24 Creatinine 0.50 mg/dL 0.50-1.40 One Over Creatinine 2.00 BUN/Creatinine Ratio 14.0 8-20 Calcium 9.6 mg/dL 8.1-9.9 Total Protein 6.6 GM/DL 6.2-8.1 Albumin 3.9 GM/DL 3.6-5.4 Globulin 2.7 GM/DL 2-4 Albumin/Globulin Ratio 1.4 1-3 Bilirubin Total 0.9 mg/dL 0.4-1.5 13 Alkaline Phosphatase 53 U/L 30-110 Alt (SGPT) 24 U/L 14-54 Ast (Sgot) 36 U/L 12-42 eGFR Non- 134.7 > 60 eGFR 163.0 > 60 14 Liver Function Panel 01/21/2010 Bilirubin Direct 0.2 mg/dL 0.1-0.5 Indirect Bilirubin 0.7 mg/dL 0.3-1.0 15 Sensitivities For Urine Culture 01/21/2010 Ampicillin <=2 Ciprofloxacin 1 Nitrofurantoin <=16 High Level Gentamicin SYN-S High Level Streptomycin SYN-S Levofloxacin 1 Penicillin 4 Tetracycline >=16 Tigecycline <=0.12 Vancomycin 1 Laboratory test finding 01/21/2010 Amylase 34 U/L 20-120 16 Lipase 20 U/L Low 22-51 Alcohol < 10.0 mg/dL None Detected 17 Protime 01/21/2010 Inr 0.98 0.82-1.17 18 Protime 11.6 SEC 10.2-14.8 19 Laboratory test finding 01/21/2010 PTT (Aptt) 32.9 25.15-38.53 Troponin-I 0.01 NG/ML 0-0.06 20 Blood Culture 01/21/2010 Aerobic Culture Bottle NG5 21 Anaerobic Culture Bottle 01/21/2010 Anaerobic Culture Bottle NG5 22 Urinalysis W/Microscopic 01/21/2010 Ua Color YELLOW Yellow Appearance-Urine CLEAR Clear Specific Reeder-Ur 1.016 1.010-1.030 Esterase-Urine 1+ Negative Nitrite NEGATIVE Negative Szyukqrsgmhb-Ky-FSF NEGATIVE Negative Protein-Urine NEGATIVE Negative PH-Urine 6.0 5-9 Blood-Urine NEGATIVE Negative Ketones-Urine NEGATIVE Negative Bilirubin-Ur NEGATIVE Negative Glucose-Urine NEGATIVE Negative Hyaline Casts-Urine RARE 0-2 WBC-Urine 0-2 0-5 RBC-Urine 0-2 0-2 Epith Cells-Ur FEW None Bacteria-Urine 1+ None Crystals-Urine (SEE NOTE) None 23 CBC With Electronic Diff 01/21/2010 White Blood Count 7.3 CUMM 4.8-10.8 Red Cell Count 4.03 CUMM Low 4.2-5.4 Hemoglobin 15.2 g/dL 12.0-16.0 Hematocrit 43 % 35-47 Mean Corpuscular Volume 108 um3 High 79-97 24 Mean Corpuscular Hemoglob 38 pg High 27-31 Mean Corpuscular HGB Cone 35 g/dL 32-36 Redcell Distribution WDTH 15 % 10.5-15 Platelet Count 225 CUMM 150-450 Mean Platelet Volume 6.8 um3 Low 7.4-10.4 Gran % 70.7 % 38-83 Lymph % 19.4 % Low 25-47 Mononuclear % 7.4 % 1-9 Eosinophil % 1.7 % 0-6 Basophil % 0.8 % 0-2 Abs Lymphs 1.4 1.0-4.8 Abs Mononuclear 0.5 0-0.8 Absolute Neutrophil Count 5.2 1.5-7.7 Abs Eosinophils 0.1 0-0.6 Abs Basophils 0.1 0-0.2 25 Urine Culture & 01/21/2010 Urine Culture GROUP D ENTEROCO <SEE 26 Sensitivi Sensitivi NOTE> Urine Culture Sensitivi NORMAL EDDIE 27 Lipid Profile (Trig/Chol/HDL) 11/10/2009 Triglyceride 126 mg/dL 40-200 Cholesterol 194 mg/dL Less Than 200 28 High Density Lipoprotein 57 mg/dL 40-60 29 Cholesterol/HDL Ratio 3.40 AVERAGE 1-4.44 Low Density Lipoprotein 112 mg/dL High Less Than 100 30 Comp Metabolic Panel 11/10/2009 Sodium 136 mmol/L 135-145 Potassium 4.0 mmol/L 3.5-5.0 Chloride 106 mmol/L 101-111 Co2 (Carbon Dioxide) 23.0 mmol/L 22-32 Anion Gap 7.0 mmol/L 2-11 31 Glucose 90 mg/dL 70-100 32 BUN 11 mg/dL 6-24 Creatinine 0.60 mg/dL 0.50-1.40 One Over Creatinine 1.60 BUN/Creatinine Ratio 18.3 8-20 Calcium 9.5 mg/dL 8.1-9.9 Total Protein 6.4 GM/DL 6.2-8.1 Albumin 4.1 GM/DL 3.6-5.4 Globulin 2.3 GM/DL 2-4 Albumin/Globulin Ratio 1.8 1-3 Bilirubin Total 1.1 mg/dL 0.4-1.5 33 Alkaline Phosphatase 47 U/L 30-110 Alt (SGPT) 25 U/L 14-54 Ast (Sgot) 32 U/L 12-42 eGFR Non- 109.1 > 60 eGFR 132.0 > 60 34 CMP Panel Stat 03/29/2009 Sodium 131 mmol/L Low 135-145 35 Potassium 3.7 mmol/L 3.5-5.0 Chloride 100 mmol/L Low 101-111 Co2 (Carbon Dioxide) 22.0 mmol/L 22-32 Anion Gap 9.0 mmol/L 2-11 36 Glucose 81 mg/dL 70-100 37 BUN 8 mg/dL 6-24 Creatinine 0.60 mg/dL 0.50-1.40 One Over Creatinine 1.60 BUN/Creatinine Ratio 13.3 8-20 Calcium 8.5 mg/dL 8.1-9.9 38 Total Protein 5.4 GM/DL Low 6.2-8.1 Albumin 3.5 GM/DL Low 3.6-5.4 Globulin 1.9 GM/DL Low 2-4 Albumin/Globulin Ratio 1.8 1-3 Bilirubin Total 1.2 mg/dL 0.4-1.5 39 Alkaline Phosphatase 49 U/L 30-110 Alt (SGPT) 16 U/L 14-54 Ast (Sgot) 25 U/L 12-42 eGFR Non- 109.1 > 60 eGFR 132.0 > 60 40 Alcohol Stat 03/29/2009 Alcohol 162.2 mg/dL High None Detected 41 Laboratory test finding 03/29/2009 TSH 3.79 MIU/ML 0.34-5.60 Urinalysis 03/29/2009 Ua Color YELLOW Yellow Appearance-Urine CLEAR Clear Specific Reeder-Ur 1.004 Low 1.010-1.030 Esterase-Urine NEGATIVE Negative Nitrite NEGATIVE Negative [id number] NEGATIVE Negative Protein-Urine NEGATIVE Negative PH-Urine 6.5 5-9 Blood-Urine NEGATIVE Negative Ketones-Urine NEGATIVE Negative Bilirubin-Ur NEGATIVE Negative Glucose-Urine NEGATIVE Negative DS3 03/29/2009 Amphetamines Urine Screen NONE DETECTED None Detect Barbituates Urine Screen NONE DETECTED None Detect Benzodiazepine Ur Screen POSITIVE None Detect Cannabinoid Urine Screen NONE DETECTED None Detect Cocaine Metabolites Urine NONE DETECTED None Detect Opiates Urine Screen NONE DETECTED None Detect PCP Urine Screen NONE DETECTED None Detect 42 CBC With Electronic Diff Stat 03/29/2009 White Blood Count 4.8 CUMM 4.8- 10.8 Red Cell Count 3.70 CUMM Low 4.2-5.4 Hemoglobin 13.3 g/dL 12.0-16.0 Hematocrit 38 % 35-47 Mean Corpuscular Volume 103 um3 High 79-97 Mean Corpuscular Hemoglob 36 pg High 27-31 Mean Corpuscular HGB Cone 35 g/dL 32-36 Redcell Distribution WDTH 14 % 10.5-15 Platelet Count 202 CUMM 150-450 Mean Platelet Volume 6.9 um3 Low 7.4-10.4 Gran % 44.5 % 38-83 Lymph % 42.4 % 25-47 Mononuclear % 8.5 % 1-9 Eosinophil % 3.8 % 0-6 Basophil % 0.8 % 0-2 Abs Lymphs 2.0 1.0-4.8 Abs Mononuclear 0.4 0-0.8 Absolute Neutrophil Count 2.1 1.5-7.7 Abs Eosinophils 0.2 0-0.6 Abs Basophils 0 0-0.2 CBC With Electronic Diff Stat 03/28/2009 White Blood Count 5.9 CUMM 4.8- 10.8 Red Cell Count 4.01 CUMM Low 4.2-5.4 Hemoglobin 14.7 g/dL 12.0-16.0 Hematocrit 42 % 35-47 Mean Corpuscular Volume 105 um3 High 79-97 Mean Corpuscular Hemoglob 37 pg High 27-31 Mean Corpuscular HGB Cone 35 g/dL 32-36 Redcell Distribution WDTH 14 % 10.5-15 Platelet Count 206 CUMM 150-450 Mean Platelet Volume 7.1 um3 Low 7.4-10.4 Gran % 58.8 % 38-83 Lymph % 33.1 % 25-47 Mononuclear % 4.7 % 1-9 Eosinophil % 2.2 % 0-6 Basophil % 1.2 % 0-2 Abs Lymphs 2.0 1.0-4.8 Abs Mononuclear 0.3 0-0.8 Absolute Neutrophil Count 3.5 1.5-7.7 Abs Eosinophils 0.1 0-0.6 Abs Basophils 0.1 0-0.2 DS3 03/28/2009 Amphetamines Urine Screen NONE DETECTED None Detect Barbituates Urine Screen NONE DETECTED None Detect Benzodiazepine Ur Screen POSITIVE None Detect Cannabinoid Urine Screen NONE DETECTED None Detect Cocaine Metabolites Urine NONE DETECTED None Detect Opiates Urine Screen NONE DETECTED None Detect PCP Urine Screen NONE DETECTED None Detect 43 CMP Panel Stat 03/28/2009 Sodium 138 mmol/L 135-145 Potassium 3.8 mmol/L 3.5-5.0 Chloride 107 mmol/L 101-111 Co2 (Carbon Dioxide) 24.0 mmol/L 22-32 Anion Gap 7.0 mmol/L 2-11 44 Glucose 83 mg/dL 70-100 45 BUN 7 mg/dL 6-24 Creatinine 0.50 mg/dL 0.50-1.40 One Over Creatinine 2.00 BUN/Creatinine Ratio 14.0 8-20 Calcium 9.0 mg/dL 8.1-9.9 46 Total Protein 6.4 GM/DL 6.2-8.1 Albumin 3.7 GM/DL 3.6-5.4 Globulin 2.7 GM/DL 2-4 Albumin/Globulin Ratio 1.4 1-3 Bilirubin Total 0.9 mg/dL 0.4-1.5 47 Alkaline Phosphatase 55 U/L 30-110 Alt (SGPT) 20 U/L 14-54 Ast (Sgot) 24 U/L 12-42 eGFR Non- 134.7 > 60 eGFR 163.0 > 60 48 Alcohol Stat 03/28/2009 Alcohol 191.8 mg/dL High None Detected 49 Urinalysis W/Microscopic 03/28/2009 Ua Color YELLOW Yellow Appearance-Urine CLEAR Clear Specific Reeder-Ur 1.003 Low 1.010-1.030 Esterase-Urine TRACE Negative Nitrite NEGATIVE Negative Nplfvneqdaek-Af-BCU NEGATIVE Negative Protein-Urine NEGATIVE Negative PH-Urine 6.5 5-9 Blood-Urine NEGATIVE Negative Ketones-Urine NEGATIVE Negative Bilirubin-Ur NEGATIVE Negative Glucose-Urine NEGATIVE Negative WBC-Urine 0-2 0-5 RBC-Urine 0-2 0-2 Epith Cells-Ur RARE None Bacteria-Urine TRACE None Amorphous Sed-U TRACE None Laboratory test finding 2009 Vitamin B12 606 pg/mL 180-914 Comp Metabolic Panel 2009 Sodium 134 mmol/L Low 135-145 Potassium 3.7 mmol/L 3.5-5.0 Chloride 100 mmol/L Low 101-111 Co2 (Carbon Dioxide) 26.0 mmol/L 22-32 Anion Gap 8.0 mmol/L 2-11 50 Glucose 88 mg/dL 70-100 51 BUN 5 mg/dL Low 6-24 Creatinine 0.70 mg/dL 0.50-1.40 One Over Creatinine 1.40 BUN/Creatinine Ratio 7.1 Low 8-20 Calcium 10.0 mg/dL High 8.1-9.9 52 Total Protein 6.0 GM/DL Low 6.2-8.1 Albumin 3.9 GM/DL 3.6-5.4 Globulin 2.1 GM/DL 2-4 Albumin/Globulin Ratio 1.9 1-3 Bilirubin Total 0.8 mg/dL 0.4-1.5 53 Alkaline Phosphatase 72 U/L 30-110 Alt (SGPT) 25 U/L 14-54 Ast (Sgot) 38 U/L 12-42 eGFR Non- 91.3 > 60 eGFR 110.5 > 60 54 Laboratory test finding 01/16/2009 Troponin-I (TnI) 0.01 NG/ML 55 Acetaminophen < 10 g/mL Low 10-30 56 Alcohol Stat 01/16/2009 Alcohol 226.2 mg/dL High None Detected 57 Salicylate Stat 01/16/2009 Salicylate < 4.0 mg/dL Less Than 30 58 Urinalysis W/Microscopic 01/16/2009 Ua Color YELLOW Appearance-Urine CLEAR Specific Reeder-Ur 1.002 Low 1.010-1.030 Esterase-Urine TRACE Negative Nitrite NEGATIVE Negative Fzojdmywbfjc-Uj-XKE NEGATIVE Negative Protein-Urine NEGATIVE Negative PH-Urine 6.0 5-9 Blood-Urine NEGATIVE Negative Ketones-Urine NEGATIVE Negative Bilirubin-Ur NEGATIVE Negative Glucose-Urine NEGATIVE Negative WBC-Urine 0-2 0-5 RBC-Urine 0-2 0-2 Mucus Urine SMALL Epith Cells-Ur FEW CBC With Electronic Diff Stat 01/16/2009 White Blood Count 7.2 CUMM 4.8- 10.8 Red Cell Count 3.90 CUMM Low 4.2-5.4 Hemoglobin 14.4 g/dL 12.0-16.0 Hematocrit 42 % 35-47 Mean Corpuscular Volume 106 um3 High 79-97 59 Mean Corpuscular Hemoglob 37 pg High 27-31 Mean Corpuscular HGB Cone 35 g/dL 32-36 Redcell Distribution WDTH 13 % 10.5-15 Platelet Count 217 CUMM 150-450 Mean Platelet Volume 7.4 um3 7.4-10.4 Gran % 53.9 % 38-83 Lymph % 35.2 % 25-47 Mononuclear % 6.6 % 1-9 Eosinophil % 3.2 % 0-6 Basophil % 1.1 % 0-2 Abs Lymphs 2.5 1.0-4.8 Abs Mononuclear 0.5 0-0.8 Absolute Neutrophil Count 3.9 1.5-7.7 Abs Eosinophils 0.2 0-0.6 Abs Basophils 0.1 0-0.2 60 DS3 01/16/2009 Amphetamines Urine Screen NONE DETECTED None Detect Barbituates Urine Screen NONE DETECTED None Detect Benzodiazepine Ur Screen NONE DETECTED None Detect Cannabinoid Urine Screen NONE DETECTED None Detect Cocaine Metabolites Urine NONE DETECTED None Detect Opiates Urine Screen NONE DETECTED None Detect PCP Urine Screen NONE DETECTED None Detect 61 Ua Stat 01/16/2009 Ua Color YELLOW Appearance-Urine CLEAR Specific Reeder-Ur 1.002 Low 1.010-1.030 Esterase-Urine TRACE Negative Nitrite NEGATIVE Negative Xxwhkjfxgbjj-Av-CSS NEGATIVE Negative Protein-Urine NEGATIVE Negative PH-Urine 6.0 5-9 Blood-Urine NEGATIVE Negative Ketones-Urine NEGATIVE Negative Bilirubin-Ur NEGATIVE Negative Glucose-Urine NEGATIVE Negative CMP Panel Stat 01/16/2009 Sodium 132 mmol/L Low 135-145 Potassium 3.2 mmol/L Low 3.5-5.0 Chloride 100 mmol/L Low 101-111 Co2 (Carbon Dioxide) 22.0 mmol/L 22-32 Anion Gap 10.0 mmol/L 2-11 62 Glucose 79 mg/dL 70-100 63 BUN 8 mg/dL 6-24 Creatinine 0.70 mg/dL 0.50-1.40 One Over Creatinine 1.40 BUN/Creatinine Ratio 11.4 8-20 Calcium 8.8 mg/dL 8.1-9.9 64 Total Protein 6.0 GM/DL Low 6.2-8.1 Albumin 3.8 GM/DL 3.6-5.4 Globulin 2.2 GM/DL 2-4 Albumin/Globulin Ratio 1.7 1-3 Bilirubin Total 0.7 mg/dL 0.4-1.5 65 Alkaline Phosphatase 39 U/L 30-110 Alt (SGPT) 17 U/L 14-54 Ast (Sgot) 22 U/L 12-42 eGFR Non- 91.7 > 60 eGFR 110.9 > 60 66 Comp Metabolic Panel 12/22/2008 Sodium 142 mmol/L 135-145 Potassium 3.7 mmol/L 3.5-5.0 Chloride 108 mmol/L 101-111 Co2 (Carbon Dioxide) 23.0 mmol/L 22-32 Anion Gap 11.0 mmol/L 2-11 67 Glucose 74 mg/dL 70-100 68 BUN 4 mg/dL Low 6-24 Creatinine 0.60 mg/dL 0.50-1.40 One Over Creatinine 1.60 BUN/Creatinine Ratio 6.7 Low 8-20 Calcium 9.0 mg/dL 8.1-9.9 69 Total Protein 6.0 GM/DL Low 6.2-8.1 Albumin 3.6 GM/DL 3.6-5.4 Globulin 2.4 GM/DL 2-4 Albumin/Globulin Ratio 1.5 1-3 Bilirubin Total 1.0 mg/dL 0.4-1.5 70 Alkaline Phosphatase 61 U/L 30-110 Alt (SGPT) 25 U/L 14-54 Ast (Sgot) 68 U/L High 12-42 eGFR Non- 109.5 > 60 eGFR 132.5 > 60 71 CBC With Electronic Diff 12/22/2008 White Blood Count 9.8 CUMM 4.8-10.8 Red Cell Count 3.98 CUMM Low 4.2-5.4 Hemoglobin 15.0 g/dL 12.0-16.0 Hematocrit 44 % 35-47 Mean Corpuscular Volume 110 um3 High 79-97 72 Mean Corpuscular Hemoglob 38 pg High 27-31 Mean Corpuscular HGB Cone 34 g/dL 32-36 Redcell Distribution WDTH 14 % 10.5-15 Platelet Count 255 CUMM 150-450 Mean Platelet Volume 7.9 um3 7.4-10.4 Gran % 76.8 % 38-83 Lymph % 14.9 % Low 25-47 Mononuclear % 5.9 % 1-9 Eosinophil % 1.9 % 0-6 Basophil % 0.5 % 0-2 Abs Lymphs 1.5 1.0-4.8 Abs Mononuclear 0.6 0-0.8 Absolute Neutrophil Count 7.5 1.5-7.7 Abs Eosinophils 0.2 0-0.6 Abs Basophils 0 0-0.2 73 Laboratory test finding 12/22/2008 TSH 3.72 MIU/ML 0.34-5.60 Erythrocyte Sed Rate 17 MM/HR 0-30 Lipid Profile (Trig/Chol/HDL) 12/22/2008 Triglyceride 581 mg/dL High 40- 200 Cholesterol 143 mg/dL Less Than 200 74 High Density Lipoprotein 32 mg/dL Low 40-60 75 Cholesterol/HDL Ratio 4.47 AVERAGE High 1-4.44 Low Density Lipoprotein (SEE NOTE) mg/dL Less Than 100 76 Celiac Panel 12/22/2008 Endomysial Abs Negative Negative 77 Gliadin Igg <1.0 U () 78 Gliadin Iga 1.3 U () 79 Reticulin AB Negative Negative 80 Protime 12/09/2008 Inr 1.07 0.86-1.13 81 Protime 13.0 SEC 10.7-13.6 82 Laboratory test finding 12/09/2008 PTT (Aptt) 37.5 25.15-38.53 83 Basic Metabolic Panel 12/09/2008 Sodium 138 mmol/L 135-145 Potassium 3.6 mmol/L 3.5-5.0 Chloride 107 mmol/L 101-111 Co2 (Carbon Dioxide) 24.0 mmol/L 22-32 Anion Gap 7.0 mmol/L 2-11 84 Glucose 102 mg/dL High 70-100 85 BUN 6 mg/dL 6-24 Creatinine 0.70 mg/dL 0.50-1.40 One Over Creatinine 1.40 BUN/Creatinine Ratio 8.6 8-20 Calcium 9.6 mg/dL 8.1-9.9 86 eGFR Non- 91.7 > 60 eGFR 110.9 > 60 87 CBC With Manual Diff 12/09/2008 White Blood Count 6.5 CUMM 4.8-10.8 Red Cell Count 3.83 CUMM Low 4.2-5.4 Hemoglobin 14.3 g/dL 12.0-16.0 Hematocrit 42 % 35-47 Mean Corpuscular Volume 109 um3 High 79-97 88 Mean Corpuscular Hemoglob 37 pg High 27-31 Mean Corpuscular HGB Cone 34 g/dL 32-36 Redcell Distribution WDTH 14 % 10.5-15 Platelet Count 217 CUMM 150-450 Mean Platelet Volume 7.8 um3 7.4-10.4 Polysegmented Neutrophil 79 % 38-83 Lymphocyte 18 % Low 25-47 Monocyte 1 % 0-13 Eosenophil 2 % 0-6 Absolute Neutrophil Count 5.1 Macrocytosis 1+ Polychromasia SLIGHT 1 Because ethnic data is not always readily available, this report includes an eGFR for both -Americans and non- Americans. The National Kidney Disease Education Program (NKDEP) does not endorse the use of the MDRD equation for patients that are not between the ages of 18 and 70, are , have extremes of body size, muscle mass, or nutritional status, or are non- or non-. According to the National Kidney Foundation, irrespective of diagnosis, the stage of the disease is based on the level of kidney function: Stage Description GFR(mL/min/1.73 m(2)) 1 Kidney damage with normal or decreased GFR 90 2 Kidney damage with mild decrease in GFR 60-89 3 Moderate decrease in GFR 30-59 4 Severe decrease in GFR 15-29 5 Kidney failure <15 (or dialysis) 2 RUN DATE: 05/20/11 [facility] NMI LIVE PAGE 1 RUN TIME: 1044 Specimen Inquiry RUN USER: INTERFACE Name: JANETH BLAND Status: DIS Ko Re05/15/11 Age/Sex: 61/F Unit#: [id number] Location: [facility]. : 52 SPEC #: [id number] [place]: 05/15/11 STATUS: MADELINE REQ #: [id number] RECD: 05/15/[address] [facility] [address]: José Luis PENA, Elida Malagon SOURCE: BLOOD ENTR: 05/15/[address]: Eric PENA,Patrizia [facility]: BLOOD,VENO Storm SYNOPTIC METEOROLOGIST,Bessy Murguia PA-C ORDERED: BLOOD CULTURE ACT WKST: BC 05/16/11 #1 Procedure Result Verified Site > AEROBIC CULTURE BOTTLE Final 05/20/11- 1044 ML NO GROWTH AFTER 5 DAYS > ANAEROBIC CULTURE BOTTLE Final 05/20/11- 1044 ML NO GROWTH AFTER 5 DAYS ML - [facility] State Permit #[id number] [facility] [employer] [place] [address] DEPARTMENT OF PATHOLOGY, [facility] [place] [address] [facility] Permit #[id number] Tyson Coles M.D. Director Jorje Kwok M.D. Supervisor Soldering 3 STOOL C S REJECTED; TRANSPORT MEDIA WAS FROZEN ON RECEIPT VERBAL TO ULYSSES ROBERSON) [facility] BY HYUN at 1336 on 03/03/10. Results read back accurately. 4 Giardia and cryptosporidium antigen testing performed by immunoassay. If patient is immunocompromised or has traveled to or is from a developing country, a full ova and parasite exam with microscopic (OPMIC) is recommended. All samples will be held one month in case full ova and parasite testing is requested. Contact the Microbiology Department at [phone]. TEST LIMITATIONS: As with all diagnostic procedures, the results obtained should be used in conjunction with other clinical information available the physician. Negative results can occur in samples containing antigen below lower limits of detection of the assay. The use of colonic washes, aspirates or other diluted sample types has not been established and could affect the performance of the assay. Stool samples contaminated with an oily or particulate base (eg. Barium, mineral oil etc.) could interfere with the test and are not recommended. 5 NEGATIVE BY IMMUNOASSAY NEGATIVE BY IMMUNOASSAY 6 Anion gap measurement may be of limited value in the presence of any alkalosis, especially in a combined acid base disorder. . 7 Note change in reference range as of 10/16/07. The change was based on recommendations from the [place] [employer]. 8 A metabolite of Naproxen, O-desmethylnaproxen, has been shown to interfere with the Jendrassik-Isabel method for measuring total bilirubin. Samples from patients who have taken Naproxen have shown spurious elevation in total bilirubin levels. 9 Because ethnic data is not always readily available, this report includes an eGFR for both -Americans and non- Americans. The National Kidney Disease Education Program (NKDEP) does not endorse the use of the MDRD equation for patients that are not between the ages of 18 and 70, are , have extremes of body size, muscle mass, or nutritional status, or are non- or non-. According to the National Kidney Foundation, irrespective of diagnosis, the stage of the disease is based on the level of kidney function: Stage Description GFR(mL/min/1.73 m(2)) 1 Kidney damage with normal or decreased GFR 90 2 Kidney damage with mild decrease in GFR 60-89 3 Moderate decrease in GFR 30-59 4 Severe decrease in GFR 15-29 5 Kidney failure <15 (or dialysis) 10 1+ Macrocytosis 11 Anion gap measurement may be of limited value in the presence of any alkalosis, especially in a combined acid base disorder. . 12 Note change in reference range as of 10/16/07. The change was based on recommendations from the [place] [employer]. 13 A metabolite of Naproxen, O-desmethylnaproxen, has been shown to interfere with the Jendrassik-Jan method for measuring total bilirubin. Samples from patients who have taken Naproxen have shown spurious elevation in total bilirubin levels. 14 Because ethnic data is not always readily available, this report includes an eGFR for both -Americans and non- Americans. The National Kidney Disease Education Program (NKDEP) does not endorse the use of the MDRD equation for patients that are not between the ages of 18 and 70, are , have extremes of body size, muscle mass, or nutritional status, or are non- or non-. According to the National Kidney Foundation, irrespective of diagnosis, the stage of the disease is based on the level of kidney function: Stage Description GFR(mL/min/1.73 m(2)) 1 Kidney damage with normal or decreased GFR 90 2 Kidney damage with mild decrease in GFR 60-89 3 Moderate decrease in GFR 30-59 4 Severe decrease in GFR 15-29 5 Kidney failure <15 (or dialysis) 15 Please note updated reference range, effective 09/15/09 16 PLEASE NOTE NEW REFERENCE RANGE. 17 The detection limit for ETHANOL is 10.0 mg/dl . Values less than 10.0 mg/dl cannot be accurately measured. . 18 Recommended INR for Patients on Oral Anticoagulants Prophylaxis 2.0 - 3.0 Treatment of thrombosis 2.0 - 3.0 Prevention of embolism 2.0 - 3.0 Prevention of embolism from prosthetic heart valves 2.5 - 3.5 19 DIAGNOSIS,TREATMENT,AND THERAPY MUST BE BASED ON THE INR VALUE ALONE. 20 New Reference Range and Interpretation effective 11/28/2001 TnI (ng/ml) INTERPRETATION Less Than 0.06 ng/mL NOT SUPPORTIVE OF DIAGNOSIS OF SD 0.06 - 0.50 ng/ml INDETERMINATE: SUGGEST SERIAL STUDIES IF CLINICALLY INDICATED. Greater than 0.5 ng/mL CONSISTENT WITH DIAGNOSIS OF SD . 21 NO GROWTH AFTER 5 DAYS 22 NO GROWTH AFTER 5 DAYS 23 CALCIUM OXALATE CRYSTALS 24 ADULT MCV GREATER THAN 105 FL INCUBATED 1/2 HR AT 37C WITHOUT SIGNIFICANT CHANGE. 25 Lymphopenia % 1+ Macrocytosis 26 GROUP D ENTEROCOCCUS 75^50-75,000 ORGANISMS/ML (MANY)^CCU 27 50^25-50,000 ORGANISMS/ML (MODERATE)^CCU 28 CHOLESTEROL INTERPRETATION: Desirable: Less than 200 MG/DL Borderline-High Risk: 200-239 MG/DL High-Risk: 240 MG/DL and over 29 HDL INTERPRETATION: Undesirable: High Risk: Less than 40 MG/DL Desirable: Low Risk: Greater than 60 MG/DL 30 LDL INTERPRETATION: Low Risk Optimal Level: LDL Less than 100 MG/DL Near or Above Optimal: LDL 100-129 MG/DL Borderline High Risk: LDL 130-159 MG/DL High Risk: LDL 160-189 MG/DL Very High Risk: LDL Greater than 189 MG/DL 31 Anion gap measurement may be of limited value in the presence of any alkalosis, especially in a combined acid base disorder. . 32 Note change in reference range as of 10/16/07. The change was based on recommendations from the [place] [employer]. 33 A metabolite of Naproxen, O-desmethylnaproxen, has been shown to interfere with the Jendrassik-Jan method for measuring total bilirubin. Samples from patients who have taken Naproxen have shown spurious elevation in total bilirubin levels. 34 Because ethnic data is not always readily available, this report includes an eGFR for both -Americans and non- Americans. The National Kidney Disease Education Program (NKDEP) does not endorse the use of the MDRD equation for patients that are not between the ages of 18 and 70, are , have extremes of body size, muscle mass, or nutritional status, or are non- or non-. According to the National Kidney Foundation, irrespective of diagnosis, the stage of the disease is based on the level of kidney function: Stage Description GFR(mL/min/1.73 m(2)) 1 Kidney damage with normal or decreased GFR 90 2 Kidney damage with mild decrease in GFR 60-89 3 Moderate decrease in GFR 30-59 4 Severe decrease in GFR 15-29 5 Kidney failure <15 (or dialysis) 35 RESULTS VERIFIED BY REPEAT ANALYSIS ON THE SAME SAMPLE. REPEATED RESULT IS:131/R 36 Anion gap measurement may be of limited value in the presence of any alkalosis, especially in a combined acid base disorder. . 37 Note change in reference range as of 10/16/07. The change was based on recommendations from the [place] [employer]. 38 Please note change in reference range effective 07 . 39 A metabolite of Naproxen, O-desmethylnaproxen, has been shown to interfere with the Jendrassik-Jan method for measuring total bilirubin. Samples from patients who have taken Naproxen have shown spurious elevation in total bilirubin levels. 40 Because ethnic data is not always readily available, this report includes an eGFR for both -Americans and non- Americans. The National Kidney Disease Education Program (NKDEP) does not endorse the use of the MDRD equation for patients that are not between the ages of 18 and 70, are , have extremes of body size, muscle mass, or nutritional status, or are non- or non-. According to the National Kidney Foundation, irrespective of diagnosis, the stage of the disease is based on the level of kidney function: Stage Description GFR(mL/min/1.73 m(2)) 1 Kidney damage with normal or decreased GFR 90 2 Kidney damage with mild decrease in GFR 60-89 3 Moderate decrease in GFR 30-59 4 Severe decrease in GFR 15-29 5 Kidney failure <15 (or dialysis) 41 The detection limit for ETHANOL is 10.0 mg/dl . Values less than 10.0 mg/dl cannot be accurately measured. . 42 THE URINE SPECIMEN WAS TESTED AT THE LISTED CUTOFFS: DRUG CLASS TEST LEVEL (NG/ML) AMPHETAMINES 300 BARBITUATES 200 BENZODIAZEPINE METABOLITES 200 COCAINE METABOLITES 300 CANNABINOIDS 25 OPIATES 200 PCP 25 THIS IS A SCREENING PROCEDURE. POSITIVE RESULTS ARE NOT CONFIRMED. SPECIMEN WAS RECEIVED WITHOUT CHAIN OF CUSTODY. RESULTS SHOULD BE USED FOR MEDICAL PURPOSES ONLY. . 43 THE URINE SPECIMEN WAS TESTED AT THE LISTED CUTOFFS: DRUG CLASS TEST LEVEL (NG/ML) AMPHETAMINES 300 BARBITUATES 200 BENZODIAZEPINE METABOLITES 200 COCAINE METABOLITES 300 CANNABINOIDS 25 OPIATES 200 PCP 25 THIS IS A SCREENING PROCEDURE. POSITIVE RESULTS ARE NOT CONFIRMED. SPECIMEN WAS RECEIVED WITHOUT CHAIN OF CUSTODY. RESULTS SHOULD BE USED FOR MEDICAL PURPOSES ONLY. . 44 Anion gap measurement may be of limited value in the presence of any alkalosis, especially in a combined acid base disorder. . 45 Note change in reference range as of 10/16/07. The change was based on recommendations from the [place] [employer]. 46 Please note change in reference range effective 07 . 47 A metabolite of Naproxen, O-desmethylnaproxen, has been shown to interfere with the Jendrassik-Isabel method for measuring total bilirubin. Samples from patients who have taken Naproxen have shown spurious elevation in total bilirubin levels. 48 Because ethnic data is not always readily available, this report includes an eGFR for both -Americans and non- Americans. The National Kidney Disease Education Program (NKDEP) does not endorse the use of the MDRD equation for patients that are not between the ages of 18 and 70, are , have extremes of body size, muscle mass, or nutritional status, or are non- or non-. According to the National Kidney Foundation, irrespective of diagnosis, the stage of the disease is based on the level of kidney function: Stage Description GFR(mL/min/1.73 m(2)) 1 Kidney damage with normal or decreased GFR 90 2 Kidney damage with mild decrease in GFR 60-89 3 Moderate decrease in GFR 30-59 4 Severe decrease in GFR 15-29 5 Kidney failure <15 (or dialysis) 49 The detection limit for ETHANOL is 10.0 mg/dl . Values less than 10.0 mg/dl cannot be accurately measured. . 50 Anion gap measurement may be of limited value in the presence of any alkalosis, especially in a combined acid base disorder. . 51 Note change in reference range as of 10/16/07. The change was based on recommendations from the [place] [employer]. 52 Please note change in reference range effective 07 . 53 A metabolite of Naproxen, O-desmethylnaproxen, has been shown to interfere with the Jendrassik-Jan method for measuring total bilirubin. Samples from patients who have taken Naproxen have shown spurious elevation in total bilirubin levels. 54 Because ethnic data is not always readily available, this report includes an eGFR for both -Americans and non- Americans. The National Kidney Disease Education Program (NKDEP) does not endorse the use of the MDRD equation for patients that are not between the ages of 18 and 70, are , have extremes of body size, muscle mass, or nutritional status, or are non- or non-. According to the National Kidney Foundation, irrespective of diagnosis, the stage of the disease is based on the level of kidney function: Stage Description GFR(mL/min/1.73 m(2)) 1 Kidney damage with normal or decreased GFR 90 2 Kidney damage with mild decrease in GFR 60-89 3 Moderate decrease in GFR 30-59 4 Severe decrease in GFR 15-29 5 Kidney failure <15 (or dialysis) 55 New Reference Range and Interpretation effective 11/28/2001 TnI (ng/ml) INTERPRETATION Less Than 0.06 ng/mL NOT SUPPORTIVE OF DIAGNOSIS OF SD 0.06 - 0.50 ng/ml INDETERMINATE: SUGGEST SERIAL STUDIES IF CLINICALLY INDICATED. Greater than 0.5 ng/mL CONSISTENT WITH DIAGNOSIS OF SD . 56 TOXIC LEVELS: GREATER THAN 150 MCG/ML @ 4HR POST INGEST GREATER THAN 50 MCG/ML @ 12HR POST INGEST The detection limit for ACETAMINOPHEN is 10.0 mcg/ml . Values less than 10.0 mcg/ml cannot be accurately measured. . 57 The detection limit for ETHANOL is 10.0 mg/dl . Values less than 10.0 mg/dl cannot be accurately measured. . 58 The detection limit for SALICYLATE is 4.0 mg/dl. Values less than 4.0 mg/dl cannot be accurately measured. . 59 CONSISTENT WITH PREVIOUS RESULTS 60 1+ Macrocytosis 61 THE URINE SPECIMEN WAS TESTED AT THE LISTED CUTOFFS: DRUG CLASS TEST LEVEL (NG/ML) AMPHETAMINES 300 BARBITUATES 200 BENZODIAZEPINE METABOLITES 200 COCAINE METABOLITES 300 CANNABINOIDS 25 OPIATES 200 PCP 25 THIS IS A SCREENING PROCEDURE. POSITIVE RESULTS ARE NOT CONFIRMED. SPECIMEN WAS RECEIVED WITHOUT CHAIN OF CUSTODY. RESULTS SHOULD BE USED FOR MEDICAL PURPOSES ONLY. . 62 Anion gap measurement may be of limited value in the presence of any alkalosis, especially in a combined acid base disorder. . 63 Note change in reference range as of 10/16/07. The change was based on recommendations from the [place] [employer]. 64 Please note change in reference range effective 07 . 65 A metabolite of Naproxen, O-desmethylnaproxen, has been shown to interfere with the Jendrassik-Jan method for measuring total bilirubin. Samples from patients who have taken Naproxen have shown spurious elevation in total bilirubin levels. 66 Because ethnic data is not always readily available, this report includes an eGFR for both -Americans and non- Americans. The National Kidney Disease Education Program (NKDEP) does not endorse the use of the MDRD equation for patients that are not between the ages of 18 and 70, are , have extremes of body size, muscle mass, or nutritional status, or are non- or non-. According to the National Kidney Foundation, irrespective of diagnosis, the stage of the disease is based on the level of kidney function: Stage Description GFR(mL/min/1.73 m(2)) 1 Kidney damage with normal or decreased GFR 90 2 Kidney damage with mild decrease in GFR 60-89 3 Moderate decrease in GFR 30-59 4 Severe decrease in GFR 15-29 5 Kidney failure <15 (or dialysis) 67 Anion gap measurement may be of limited value in the presence of any alkalosis, especially in a combined acid base disorder. . 68 Note change in reference range as of 10/16/07. The change was based on recommendations from the [place] [employer]. 69 Please note change in reference range effective 07 . 70 A metabolite of Naproxen, O-desmethylnaproxen, has been shown to interfere with the Jendrassik-Isabel method for measuring total bilirubin. Samples from patients who have taken Naproxen have shown spurious elevation in total bilirubin levels. 71 Because ethnic data is not always readily available, this report includes an eGFR for both -Americans and non- Americans. The National Kidney Disease Education Program (NKDEP) does not endorse the use of the MDRD equation for patients that are not between the ages of 18 and 70, are , have extremes of body size, muscle mass, or nutritional status, or are non- or non-. According to the National Kidney Foundation, irrespective of diagnosis, the stage of the disease is based on the level of kidney function: Stage Description GFR(mL/min/1.73 m(2)) 1 Kidney damage with normal or decreased GFR 90 2 Kidney damage with mild decrease in GFR 60-89 3 Moderate decrease in GFR 30-59 4 Severe decrease in GFR 15-29 5 Kidney failure <15 (or dialysis) 72 CONSISTENT WITH PREVIOUS RESULTS 73 Lymphopenia % 1+ Macrocytosis 74 CHOLESTEROL INTERPRETATION: Desirable: Less than 200 MG/DL Borderline-High Risk: 200-239 MG/DL High-Risk: 240 MG/DL and over 75 HDL INTERPRETATION: Undesirable: High Risk: Less than 40 MG/DL Desirable: Low Risk: Greater than 60 MG/DL 76 UNABLE TO CALCULATE LDL TRIGLYCERIDE IS > 400 77 Analyte Specific Reagent This test was developed and its performance characteristics determined by Laboratory Medicine and Pathology, [facility]. This test has not been cleared or approved by the U.S. Food and Drug Administration. Test Performed by: [facility] Dpt of Lab Med and Pathology [address] [place] [address] Business Technology Professor: Moreno Sheets III, M.D. 78 -- REFERENCE VALUE -- <20.0 (Negative) 20.0-30.0 (Weak Positive) >30.0 (Positive) Test Performed by: [facility] Dpt of Lab Med and Pathology [address] [place] [address] Business Technology Professor: Moreno Sheets III, M.D. 79 -- REFERENCE VALUE -- <20.0 (Negative) 20.0-30.0 (Weak Positive) >30.0 (Positive) Test Performed by: [facility] Dpt of Lab Med and Pathology [address] [place] [address] Business Technology Professor: Moreno Sheets III, M.D. 80 Test Performed by: [facility] Dpt of Lab Med and Pathology [address] [place] [address] Business Technology Professor: Moreno Sheets III, M.D. 81 Recommended INR for Patients on Oral Anticoagulants Prophylaxis 2.0 - 3.0 Treatment of thrombosis 2.0 - 3.0 Prevention of embolism 2.0 - 3.0 Prevention of embolism from prosthetic heart valves 2.5 - 3.5 82 ATTENTION EFFECTIVE 07/07/08, THE IMPLEMENTATION OF NEW COAGULATION ANLAYZERS HAS CAUSED A SIGNIFICANT DIFFERENCE FOR PROTIME RESULTS IN SECONDS. THEREFORE, DIAGNOSIS,TREATMENT,AND THERAPY MUST BE BASED ON THE INR VALUE ONLY. 83 PLEASE NOTE NEW REFERENCE RANGE EFFECTIVE 08. 84 Anion gap measurement may be of limited value in the presence of any alkalosis, especially in a combined acid base disorder. . 85 Note change in reference range as of 10/16/07. The change was based on recommendations from the [place] [employer]. 86 Please note change in reference range effective 07 . 87 Because ethnic data is not always readily available, this report includes an eGFR for both -Americans and non- Americans. The National Kidney Disease Education Program (NKDEP) does not endorse the use of the MDRD equation for patients that are not between the ages of 18 and 70, are , have extremes of body size, muscle mass, or nutritional status, or are non- or non-. According to the National Kidney Foundation, irrespective of diagnosis, the stage of the disease is based on the level of kidney function: Stage Description GFR(mL/min/1.73 m(2)) 1 Kidney damage with normal or decreased GFR 90 2 Kidney damage with mild decrease in GFR 60-89 3 Moderate decrease in GFR 30-59 4 Severe decrease in GFR 15-29 5 Kidney failure <15 (or dialysis) 88 CONSISTENT WITH PREVIOUS RESULTS Procedures Date CPT Code Description Status 04/20/2017 64657 Closed Treatment Of Greater Trochanteric Completed 02/04/2017 12928 EKG, Interpretation Only Completed 12/13/2015 48265 Removal Devitalization Tissue Wound Less Than Equal 20 Completed Square CM 12/13/2015 69776 Removal Devitalization Tissue Wound Less Than Equal 20 Completed Square CM 10/18/2015 62913 Debridement Skin,& sq Tissue Completed 09/29/2015 29390 Debridement Skin,& sq Tissue Completed 09/22/2015 98569 Debridement Skin,& sq Tissue Completed 09/22/2015 23813 Debridement Skin,& sq Tissue Completed 08/11/2015 01262 Debridement Skin,& sq Tissue Completed 08/11/2015 78992 Debridement Skin,& sq Tissue Completed 08/11/2015 46667 Removal Devitalization Tissue Wound Less Than Equal 20 Completed Square CM 08/04/2015 35966 Removal Devitalization Tissue Wound Less Than Equal 20 Completed Square CM 08/04/2015 61196 Debridement Skin, Subcutaneous Tissue & Muscle Completed 05/05/2014 20168 ECHO Transthorasic Realtime 2D W Doppler & Color Flow Completed Hosp 04/24/2012 63561 EKG, Interpretation Only Completed 04/11/2012 88981 Closed TX Phalanx finger/thumb shaft w/o manipulation Completed 04/11/2012 81163 Closed TX Phalanx finger/thumb shaft w/o manipulation Completed 04/11/2012 49169 Rad Exam; Hand Limited Completed 04/11/2012 12509 Rad Exam; Fingers Completed 08/02/2011 03057 EKG, Interpretation Only Completed 02/09/2010 39307 EKG Tracing & Interpretation Completed 01/04/2009 92741 Event Monitor/Phys Review/Interp. Completed 12/17/2008 89565 Left Heart Catheterization Completed 12/17/2008 02377 Inj Proc LFT Vent/LFT Atrl Angio Completed 12/17/2008 96216 Coronary Angiography Completed 12/17/2008 92961 S/I/R Inj Proc Vent And Or Atrial Completed 12/17/2008 80024 Selective Coronary Angioplasty Completed 12/09/2008 39978 EKG Tracing & Interpretation Completed 11/29/2008 80660 Stress ECHO Interpretation/Report Hospital Completed 11/29/2008 75876 Treadmill Interp/Report Only Completed 11/29/2008 28625 Stress Test Supervsn W/Out I/R Completed 09/07/2008 77685 ECHO Transthoracic, Real-Time 2D With Doppler And Color Completed Flow 09/01/2008 16416 EKG Tracing & Interpretation Completed 07/20/2008 79140 Holter Monitor Interpretation Completed Encounters Type Date Location Provider CPT E/M Dx Office Visit 11/08/2017 [facility] [place] [address] S42.211A 9:30a C.M.AYajaira F10.239 Office Visit 10/15/2017 1:38p [facility], [address] J44.1 Hospitalmanpreet Wei F10.239 R10.11 Office Visit 10/14/2017 1:38p [facility]pc [place], [address] R10.9 Hospitalists Eriberto E87.2 J44.9 F10.20 Office Visit 10/[facility] 65737 R10.9 Assoc,pc Hospitalists Eriberto J44.9 F10.20 Office Visit 04/22/2017 9:51a [facility],pc [place]g [address] S72.114A Hospitalists F10.920 E87.6 E83.42 Office Visit 04/21/2017 [facility] 49110 S72.114A Assoc,pc Hospitalists SYNOPTIC METEOROLOGIST F10.920 E87.6 E83.42 Office Visit 04/20/2017 9:[facility]a [facility], 94475 S72.114A Assoc,pc Hospitalists SYNOPTIC METEOROLOGIST F10.920 E87.6 Office Visit 04/19/2017 9:[facility]a [facility] [place] [address] S72.114A Assoc, Eriberto STREETER Hospitalists F10.920 E87.6 E83.42 Office Visit 02/11/2017 7:48a [facility] Michael Terry, 42725 K56.609 Assoc,pc Hospitalists Eriberto J44.9 F10.10 I10 Office Visit 02/10/2017 7:47a [facility] Michael Terry, 90158 K56.609 Assoc,pc Hospitalists Eriberto J44.9 I10 F10.10 Office Visit 02/09/2017 7:47a [facility] Michael Terry, 10159 K56.609 Assoc,pc Hospitalists MStephanie J44.9 F10.10 I10 Office Visit 02/08/2017 7:46a [facility] Lucila Santa, 96302 K56.609 Hospitalists Eriberto J44.9 I10 F10.10 Office Visit 02/07/2017 7:44a [facility],pc Lucila Santa, 31901 R10.84 Hospitalists Eriberto J44.9 F10.10 I10 Office Visit 02/07/2017 7:00a [facility] Kandice Garcia 11255 R18.8 Of Ravinder See, EDER K56.7 Office Visit 02/06/2017 7:43a [facility], Lucila Rtohmanima, 36180 R10.84 Hospitalists Eriberto J44.9 F10.10 Office Visit 02/05/2017 7:42a [facility], Lucila Rothmanima, 38125 K56.609 Hospitalists Eriberto J44.9 F10.10 I10 Office Visit 02/04/2017 7:42a [facility] Lucila Rothmanima, 62856 R10.84 Hospitalists Eriberto J44.9 F10.10 Office Visit 02/03/2017 7:41a [facility], 71926 R10.84 Assoc, Hospitalists N.P. J44.9 F10.10 I10 Office Visit 11/04/2016 9:35a [facility], 30952 R06.02 Assoc,pc Hospitalists Eriberto E87.8 F10.929 I10 Office Visit 09/23/2016 4:10p [facility], Anna Cristofer, 08753 E87.6 Hospitalists D.O. E83.42 R22.0 F10.10 Office Visit 09/22/2016 4:09p [facility], Anna Cristofer, 92201 E87.6 Hospitalists D.O. E83.42 R22.0 F10.10 Office Visit 09/21/2016 4:08p [facility], Anna Cristofer, 54019 E87.6 Hospitalists D.O. E83.42 R22.0 F10.10 Office Visit 06/26/2016 12:43p [facility] Hans Earl, 30877 J44.1 Assoc, [place] Hospitalists F10.10 F41.9 F32.9 Office Visit 06/25/2016 12:42p [facility] 90458 J44.1 Hospitalists N.P. F10.10 F41.9 F32.9 Office Visit 01/26/2016 3:56p [facility] Eliseo RayoYajaira Smalls, 32137 L97.223 AT [facility] M.D. Office Visit 10/13/2015 8:34a [facility] Eliseo GirmaYajaira Smalls, 98655 L97.223 AT [facility] M.D. L97.221 Office Visit 08/30/2015 1:06p [facility], [place] [address] L08.9 Hospitalists T14.8 J44.9 F41.9 Office Visit 08/29/2015 1:06p [facility], Stevie Tan, 13054 L08.9 Hospitalists M.Carter T14.8 J44.9 F41.9 Office Visit 08/28/2015 1:05p [facility], Stevie Tan, 31524 L08.9 Hospitalists M.Carter T14.8 J44.9 F41.9 Office Visit 08/27/2015 1:05p [facility], Stevie Tan, 45497 L08.9 Hospitalists MStephanie T14.8 J44.9 F41.9 Office Visit 08/26/2015 1:42p [facility] Elías Machado 09171 L97.929 Infectious Diseases Eriberto Boles L03.116 M60.062 Office Visit 08/26/2015 1:04p [facility], Anna Cleveland, 41149 L08.9 Hospitalists D.O. T14.8 J44.9 F41.9 Office Visit 08/25/2015 1:38p [facility] Elías Machado 86897 L03.116 Infectious Diseases Eriberto Boles M86.162 J44.9 Office Visit 08/25/2015 1:03p [facility], Anna Cleveland 77078 L08.9 Hospitalists D.O. T14.8 J44.9 F41.9 Office Visit 08/24/2015 1:02p [facility], Eber Robertson, 55001 T14.8 Hospitalists N.P. J44.9 L08.9 F41.9 Office Visit 08/10/2015 1:00p [facility] Stevie Allen, 14895 S93.402A Of Jose Carlos Wei Office Visit 08/04/2015 9:51a [facility] AT Eliseo GirmaYajaira Smalls, 19641 L97.223 [facility] Eriberto L03.116 L97.221 V43.02xS Office Visit 08/02/2015 11:06a [facility] Rubi Mckeon, 03983 S81.802A Assoc, Hospitalists [place] V89.2xxA Office Visit 08/02/2015 9:40a [facility], SYNOPTIC METEOROLOGIST 83636 L03.90 Assoc, Hospitalists F10.10 J44.9 Z72.0 Office Visit 08/01/2015 9:40a [facility], SYNOPTIC METEOROLOGIST 29346 L03.90 Assoc, Hospitalists J44.9 F10.10 Z72.0 Office Visit 08/09/2014 8[facility]a [facility] [address] 571.1 Assoc, Hospitalists Eriberto 272.4 496 401.9 Office Visit 12/24/2011 10[facility] Nyasia Doyle, 57358 401.9 Hospitalists N.P. 291.81 305.00 272.2 Office Visit 12/23/2011 10:51a [facility] Nyasia Doyle, 38688 272.2 Hospitalists N.P. 291.81 305.00 401.9 Office Visit 12/22/2011 10:51a [facility] Nyasia Doyle, 72431 401.9 Hospitalists N.P. 291.81 305.00 272.2 Office Visit 12/21/2011 10:50a [facility], Stevie Duran, 17452 291.81 Hospitalists N.P. 305.00 401.9 272.2 Office Visit 12/20/2011 10:49a [facility] Stevie Duran, 42717 291.81 Hospitalists N.P. 305.00 401.9 272.2 Office Visit 12/10/2011 2:22p [facility] Patrizia Reyes, 74404 291.81 Assoc, Hospitalmanpreet Wei 794.8 Office Visit 02/09/2010 11:00a DO Not Use Rosalinda Cotton, 63494 787.91 Rivet Pass[place] M.D. 786.2 796.9 272.4 Office Visit 12/12/2009 10:30a DO Not Use Rosalinda Cotton, 90646 465.9 Rivet Pass[place] M.D. 782.3 Office Visit 11/23/2009 11:45a DO Not Use Rosalinda Cotton, 44431 784.0 Rivet Passer[place] M.D. Office Visit 11/18/2009 9:45a DO Not Use Rosalinda Cotton, 84905 305.01 Rivet Passer[place] M.D. 305.1 272.4 780.57 V04.81 Office Visit 03/30/2009 2:45a [facility] Laurie Bolaños M.D. 67399 303.91 Assoc, Hospitalists Office Visit 03/29/2009 9:40a DO Not Use Rivet Passer AT Rosalinda Cotton, 20099 305.01 [place] M.D. Office Visit 2009 1:40p DO Not Use Rivet Passer AT Rosalinda Cotton, 07712 300.00 [facility] M.D. 786.2 782.9 Office Visit 12/22/2008 9:00a DO Not Use Rivet Passer AT Rosalinda Cotton, 16552 786.09 [facility] M.D. 780.57 783.21 787.91 300.00 272.4 V04.81 Office Visit 12/21/2008 11:10a [facility] Qutaybeh S. Maghaydah, 61795 786.05 M.D. 401.1 424.1 Office Visit 12/17/2008 8:00a [facility] Qutaybeh S. Maghaydah, 74952 786.50 M.D. 272.4 401.1 Office Visit 12/09/2008 9:20a [facility] Qutaybeh S. Maghaydah, 31526 786.05 M.D. 401.1 272.4 Office Visit 11/29/2008 10:00a [facility] Qutaybeh S. Maghaydah, 65851 786.50 M.D. 786.05 401.1 272.4 Office Visit 09/01/2008 9:30a [facility] Qutaybeh S. Maghaydah, 83117 427.61 M.D. 427.69 401.1 272.4 305.1 786.50 786.05 785.0 785.1 Plan of Care Future Appointment(s):11/26/2017 1:00 pm - Sia Burt MD [facility]11/08/2017 - Sia Burt, MDS42.211A [facility] disp fx of surgical neck of right humerus, initFollow up:Follow up: 2 qkkuiC29.239 Alcohol dependence with withdrawal, unspecified
--- OUTSIDE RECORDS SUMMARY | 2017-11-20 18:46 | XMS REPORT ---
:1950 External Reference #:[id number] Author Organization [facility] Address [address] [place] [address] [place] [address] Phone [phone] Care Team Providers Name Role Phone Dorcas Chan NP Primary Care Physician Unavailable Payers Type Date Identification Numbers Payment Provider Subscriber Medicare Primary Policy Number: [id number] Medicare Janeth Dennisl PayID: [id number] [address] [place] [address] [facility] Policy Number: [id number] Medicaid Janeth Bland Group Name: 1 1 [address] PayID: [id number] [place] [address] Workers Compensation Onset: 2015 Policy Number: Osito Allen E Gell [id number] PayID: [id number] [address] [address] [place] [address] Problems Date Description Provider Status Onset: 01/29/2009 Anxiety state Rosalinda Ortega M.D. Active Onset: 01/29/2009 Asthma without status asthmaticus Rosalinda Ortega M.D. Active Onset: 11/17/2009 Nondependent alcohol abuse, Rosalinda Ortega M.D. 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 Cigarette Use Current [...] 10/31/ Active Tablets 600mg 90tabs three times S42.neb 2017 a day take MD [place] with food Percocet 10/31/ Active Tablets 5-325mg 20tabs take 1 tabs [id number] as needed MD [place] for pain every 6 hours. do not combine with tylenol Lorazepam / Active Tablets 1mg 60tabs 1 by mouth Unknown 0000 once daily as needed Proair HFA / Active Aerosol 108(90Base Storm, 0000 ) mcg/Act BRE [place] Potassium / Active Unknown Magnesium 0000 B Complex / Active Unknown 0000 Vitamin D / Active Capsules daily Unknown (Ergocalcifer 0000 ol) Prednisone 00/ Active taper dose Unknown 0000 Ondansetron / Active Tablets 4mg [place], 0000 Dispers Chris Pineda MD Dulera / Active Aerosol 200-5mcg/A [address] twice a day [facility] 08/11/ Hx Gel 1units fill wound Eliseo F. Wound/Burn 2015 - daily [facility], Dressing 09/30/ M.D. 2017 Guaifenesin 02/09/ Hx Syrup 100mg/5ML 120ml 2 teaspoons 787.91 2009 - PO q 4 h Cotton, 08/08/ prn M.D. 2015 Ventolin HFA 01/03/ Hx Aers 108(90Base 18unit Inhale 2 2009 - ) mcg/ac s Puffs 4 Cotton, 08/08/ Times A Day M.D. 2015 as Needed. Avelox 12/16/ Hx Tablets 400mg 3tabs 1 tablet 2009 - daily [place], 02/09/ M.D. 2009 Tramadol HCL 11/23/ Hx Tablets 50mg 40tabs 1-2 tablets 784.0 Rosalinda 2010 - every 6 [place], 08/08/ hours M.D. 2015 Aspirin 11/18/ Hx Tablets DR 81mg 1 by mouth Rosalinda 2010 - once daily [place], M.D. 2015 Simvastatin 11/18/ Hx Tablets 10mg 30tabs Take One 2009 - Tablet By [place], 08/08/ Mouth Every M.D. 2015 Day AT Bedtime. Spiriva 01/28/ Hx Capsules 18mcg 30caps 1 786.2 [facility] Handihaler 2008 - inhalation [place], 08/08/ in am M.D. 2015 Albuterol 01/11/ Hx 17gm 2 puffs 4 [facility] Inhaler 2008 - times a day [place], 02/10/ as needed M.D. 2009 Asa 12/22/ Hx 81mg 1 tablet Rosalinda 2008 - daily [place], M.D. 2009 Wellbutrin SR 12/22/ Hx Tablets ER 200mg po daily Rosalinda 2009 - HR [place], .D. 2009 Calcium-D 12/22/ Hx Capsules 600-200mg- 60caps 1 po daily Rosalinda 2009 - Un [place], M.D. 2009 Lunesta 12/22/ Hx Tablets 3mg 30tabs 1 by mouth Rosalinda 2009 - at bedtime [place], M.D. 2016 Geodon 12/22/ Hx Capsules 40mg 30caps po qam Rosalinda 2008 - [place], M.D. 2008 Klonopin 12/22/ Hx Tablets 1mg 60tabs 1 po bid Rosalinda 2008 - [place], M.D. 2008 Seroquel 12/22/ Hx Tablets 100mg 90tabs 1 tablet at [facility] 2008 - bedtime [place], M.D. 2015 Adderall 12/22/ Hx Tablets 5mg 30tabs one prn [facility] 2008 - [place], M.D. 2008 Wellbutrin SR / Hx Tablets ER 100mg 60tabs 1 po qd Unknown 0000 - 12HR 2009 Aspir-81 / Hx Tablets DR 81mg 1 po qd Unknown 0000 - 2009 Calcium-Vitam 00/00/ Hx Tablets 500-125 qd Unknown in D 0000 - 2009 Multi Vitamin 00/00/ Hx Tablets 1 po qd Unknown 0000 - 2009 Seroquel 00/00/ Hx Tablets 50mg 60tabs 1 po qhs Unknown 0000 - prn 2008 Zocor 00/00/ Hx Tablets 10mg 30tabs 1 tablet at Rosalinda 0000 - bedtime [place], 11/18/ M.DYajaira 2009 Geodon 00/00/ Hx Capsules 40mg po at hs Unknown 0000 - prn 2008 Klonopin /00/ Hx Tablets 1mg 90tabs 1 tablet Rosalinda 0000 - 2-3 times [place], 11/18/ daily M.DYajaira 2009 Adderall 00/00/ Hx Tablets 5mg 30tabs 1/2 prn Unknown 0000 - 2008 Pristiq 00/00/ Hx Tablets ER Unknown 0000 - 24HR 2009 Chantix 00/00/ Hx Tablets 1mg 60tabs 1 Tablet Rosalinda 0000 - Twice A Day [place] 12/12/ M.DYajaira 2009 Wellbutrin 00/00/ Hx Tablets 100mg 30tabs 1 tablet Unknown 0000 - daily 2009 Oxycodone HCL 00/00/ Hx Tablets 5mg Storm, 0000 - [place], 2017 Sulfamethoxaz 00/00/ Hx Tablets 800-160mg Unknown ole/Trimethop 0000 - rim DS 2015 Etodolac 00/00/ Hx Tablets 400mg Unknown 0000 - 2015 Amoxicillin/C 00/00/ Hx Tablets 875-125mg Blegen, lavulanate 0000 - Gisell, Potassium 2015 Cephalexin 00/00/ Hx Tablets 500mg one three Unknown 0000 - times daily 2017 Naproxen 00/00/ Hx Tablets Unsure 1 tablet Unknown 0000 - with food 08/30/ by mouth 2018 twice a day Seroquel 00/00/ Hx Tablets 50mg take 1 Unknown 0000 - tablet by 08/30/ mouth every 2018 night at bedtime Immunizations CPT Code Status Date Vaccine Lot # [id number] Given 11/18/2009 Influenza Virus 3Yrs & Over [id number] Given 12/22/2008 Influenza Virus 3Yrs & Over [id number] Vital Signs Date Vital Result Comment 10/31/2017 Height 63.5 inches 5'3.50" Weight 129.00 [...] Test Date Test Result H/L Range Note Laboratory test finding 08/08/2014 Inr 0.88 0.78-1.07 Activated Partial Thrombo Time 34.3 seconds 26.0-36.3 Blood Culture 05/15/2011 M <SEE NOTE> 1 O&P: Giardia/Crypto 03/01/2010 O P: Giardia and cryp <SEE NOTE> 2, 3 Screen Giardia/Crypto Screen O P: Giardia/Crypto Screen NEGATIVE BY IMMU <SEE NOTE> 2, 4 Comp Metabolic Panel 02/09/2010 Sodium 138 mmol/L 135-145 Potassium 3.6 mmol/L 3.5-5.0 Chloride 103 mmol/L 101-111 Co2 (Carbon Dioxide) 26.0 mmol/L 22-32 Anion Gap 9.0 mmol/L 2-11 5 Glucose 116 mg/dL High 70-100 6 BUN 3 mg/dL Low 6-24 Creatinine 0.60 mg/dL 0.50-1.40 One Over Creatinine 1.60 BUN/Creatinine Ratio 5.0 Low 8-20 Calcium 10.4 mg/dL High 8.1-9.9 Total Protein 6.7 GM/DL 6.2-8.1 Albumin 4.3 GM/DL 3.6-5.4 Globulin 2.4 GM/DL 2-4 Albumin/Globulin Ratio 1.8 1-3 Bilirubin Total 1.4 mg/dL 0.4-1.5 7 Alkaline Phosphatase 62 U/L 30-110 Alt (SGPT) 31 U/L 14-54 Ast (Sgot) 44 U/L High 12-42 eGFR Non- 108.8 > 60 eGFR 131.6 > 60 8 CBC With Electronic Diff 02/09/2010 White Blood [...] 150-450 Mean Platelet Volume 7.8 um3 7.4-10.4 9 Manual Differential 02/09/2010 Polysegmented Neutrophil 55 % 38-83 Lymphocyte 37 % 25-47 Monocyte 6 % 0-13 Eosinophil 2 % 0-6 Absolute Neutrophil Count 4.6 Anisocytosis SLIGHT Comp Metabolic Panel 01/21/2010 Sodium 134 mmol/L Low 135-145 Potassium 3.2 mmol/L Low 3.5-5.0 Chloride 100 mmol/L Low 101-111 Co2 (Carbon Dioxide) 26.0 mmol/L 22-32 Anion Gap 8.0 mmol/L 2-11 10 Glucose 110 mg/dL High 70-100 11 BUN 7 mg/dL 6-24 Creatinine 0.50 mg/dL 0.50-1.40 One Over Creatinine 2.00 BUN/Creatinine Ratio 14.0 8-20 Calcium 9.6 mg/dL 8.1-9.9 Total Protein 6.6 GM/DL 6.2-8.1 Albumin 3.9 GM/DL 3.6-5.4 Globulin 2.7 GM/DL 2-4 Albumin/Globulin Ratio 1.4 1-3 Bilirubin Total 0.9 mg/dL 0.4-1.5 12 Alkaline Phosphatase 53 U/L 30-110 Alt (SGPT) 24 U/L 14-54 Ast (Sgot) 36 U/L 12-42 eGFR Non- 134.7 > 60 eGFR 163.0 > 60 13 Liver Function Panel 01/21/2010 Bilirubin Direct 0.2 mg/dL 0.1-0.5 Indirect Bilirubin 0.7 mg/dL 0.3-1.0 14 Sensitivities For Urine Culture 01/21/2010 Ampicillin <=2 Ciprofloxacin 1 Nitrofurantoin <=16 High Level Gentamicin SYN-S High Level Streptomycin SYN-S Levofloxacin 1 Penicillin 4 Tetracycline >=16 Tigecycline <=0.12 Vancomycin 1 Laboratory test finding 01/21/2010 Amylase 34 U/L 20-120 15 Lipase 20 U/L Low 22-51 Alcohol < 10.0 mg/dL None Detected 16 Protime 01/21/2010 Inr 0.98 0.82-1.17 17 Protime 11.6 SEC 10.2-14.8 18 Laboratory test finding 01/21/2010 PTT (Aptt) 32.9 25.15-38.53 Troponin-I 0.01 NG/ML 0-0.06 19 Blood Culture 01/21/2010 Aerobic Culture Bottle NG5 20 Anaerobic Culture Bottle 01/21/2010 Anaerobic Culture Bottle NG5 21 Urinalysis W/Microscopic 01/21/2010 Ua Color YELLOW Yellow Appearance-Urine CLEAR Clear Specific [place]-Ur 1.016 1.010-1.030 Esterase-Urine 1+ Negative Nitrite NEGATIVE Negative Ktgzzcclkrqx-Fd-AGL NEGATIVE Negative Protein-Urine NEGATIVE Negative PH-Urine 6.0 5-9 Blood-Urine NEGATIVE Negative Ketones-Urine NEGATIVE Negative Bilirubin-Ur NEGATIVE Negative Glucose-Urine NEGATIVE Negative Hyaline Casts-Urine RARE 0-2 WBC-Urine 0-2 0-5 RBC-Urine 0-2 0-2 Epith Cells-Ur FEW None Bacteria-Urine 1+ None Crystals-Urine (SEE NOTE) None 22 Urine Culture & 01/21/2010 Urine Culture GROUP D ENTEROCO <SEE 23 Sensitivi Sensitivi NOTE> Urine Culture Sensitivi NORMAL EDDIE 24 CBC With Electronic Diff 01/21/2010 White Blood Count 7.3 CUMM 4.8-10.8 Red Cell Count 4.03 CUMM Low 4.2-5.4 Hemoglobin 15.2 g/dL 12.0-16.0 Hematocrit 43 % 35-47 Mean Corpuscular Volume 108 um3 High 79-97 25 Mean Corpuscular Hemoglob 38 pg High 27-31 [...] Eosinophils 0.1 0-0.6 Abs Basophils 0.1 0-0.2 26 Comp Metabolic Panel 11/10/2009 Sodium 136 mmol/L 135-145 Potassium 4.0 mmol/L 3.5-5.0 Chloride 106 mmol/L 101-111 Co2 (Carbon Dioxide) 23.0 mmol/L 22-32 Anion Gap 7.0 mmol/L 2-11 27 Glucose 90 mg/dL 70-100 28 BUN 11 mg/dL 6-24 Creatinine 0.60 mg/dL 0.50-1.40 One Over Creatinine 1.60 BUN/Creatinine Ratio 18.3 8-20 Calcium 9.5 mg/dL 8.1-9.9 Total Protein 6.4 GM/DL 6.2-8.1 Albumin 4.1 GM/DL 3.6-5.4 Globulin 2.3 GM/DL 2-4 Albumin/Globulin Ratio 1.8 1-3 Bilirubin Total 1.1 mg/dL 0.4-1.5 29 Alkaline Phosphatase 47 U/L 30-110 Alt (SGPT) 25 U/L 14-54 Ast (Sgot) 32 U/L 12-42 eGFR Non- 109.1 > 60 eGFR 132.0 > 60 30 Lipid Profile (Trig/Chol/HDL) 11/10/2009 Triglyceride 126 mg/dL 40-200 Cholesterol 194 mg/dL Less Than 200 31 High Density Lipoprotein 57 mg/dL 40-60 32 Cholesterol/HDL Ratio 3.40 AVERAGE 1-4.44 Low Density Lipoprotein 112 mg/dL High Less Than 100 33 CBC With Electronic Diff Stat 03/29/2009 White [...] Eosinophils 0.2 0-0.6 Abs Basophils 0 0-0.2 DS3 03/29/2009 Amphetamines Urine Screen NONE DETECTED None Detect Barbituates Urine Screen NONE DETECTED None Detect Benzodiazepine Ur Screen POSITIVE None Detect Cannabinoid Urine Screen NONE DETECTED None Detect Cocaine Metabolites Urine NONE DETECTED None Detect Opiates Urine Screen NONE DETECTED None Detect PCP Urine Screen NONE DETECTED None Detect 34 Urinalysis 03/29/2009 Ua Color YELLOW Yellow Appearance-Urine CLEAR Clear Specific [place]-Ur 1.004 Low 1.010-1.030 Esterase-Urine NEGATIVE Negative Nitrite NEGATIVE Negative Aiagvjgxiyys-Ee-DPV NEGATIVE Negative Protein-Urine NEGATIVE Negative PH-Urine 6.5 5-9 Blood-Urine NEGATIVE Negative Ketones-Urine NEGATIVE Negative Bilirubin-Ur NEGATIVE Negative Glucose-Urine NEGATIVE Negative Laboratory test finding 03/29/2009 TSH 3.79 MIU/ML 0.34-5.60 Alcohol Stat 03/29/2009 Alcohol 162.2 mg/dL High None Detected 35 CMP Panel Stat 03/29/2009 Sodium 131 mmol/L Low 135-145 36 Potassium 3.7 mmol/L 3.5-5.0 Chloride 100 mmol/L Low 101-111 Co2 (Carbon Dioxide) 22.0 mmol/L 22-32 Anion Gap 9.0 mmol/L 2-11 37 Glucose 81 mg/dL 70-100 38 BUN 8 mg/dL 6-24 Creatinine 0.60 mg/dL 0.50-1.40 One Over Creatinine 1.60 BUN/Creatinine Ratio 13.3 8-20 Calcium 8.5 mg/dL 8.1-9.9 39 Total Protein 5.4 GM/DL Low 6.2-8.1 Albumin 3.5 GM/DL Low 3.6-5.4 Globulin 1.9 GM/DL Low 2-4 Albumin/Globulin Ratio 1.8 1-3 Bilirubin Total 1.2 mg/dL 0.4-1.5 40 Alkaline Phosphatase 49 U/L 30-110 Alt (SGPT) 16 U/L 14-54 Ast (Sgot) 25 U/L 12-42 eGFR Non- 109.1 > 60 eGFR 132.0 > 60 41 DS3 03/28/2009 Amphetamines Urine Screen NONE DETECTED None Detect Barbituates Urine Screen NONE DETECTED None Detect Benzodiazepine Ur Screen POSITIVE None Detect Cannabinoid Urine Screen NONE DETECTED None Detect Cocaine Metabolites Urine NONE DETECTED None Detect Opiates Urine Screen NONE DETECTED None Detect PCP Urine Screen NONE DETECTED None Detect 42 CMP Panel Stat 03/28/2009 Sodium 138 mmol/L 135-145 Potassium 3.8 mmol/L 3.5-5.0 Chloride 107 mmol/L 101-111 Co2 (Carbon Dioxide) 24.0 mmol/L 22-32 Anion Gap 7.0 mmol/L 2-11 43 Glucose 83 mg/dL 70-100 44 BUN 7 mg/dL 6-24 Creatinine 0.50 mg/dL 0.50-1.40 One Over Creatinine 2.00 BUN/Creatinine Ratio 14.0 8-20 Calcium 9.0 mg/dL 8.1-9.9 45 Total Protein 6.4 GM/DL 6.2-8.1 Albumin 3.7 GM/DL 3.6-5.4 Globulin 2.7 GM/DL 2-4 Albumin/Globulin Ratio 1.4 1-3 Bilirubin Total 0.9 mg/dL 0.4-1.5 46 Alkaline Phosphatase 55 U/L 30-110 Alt (SGPT) 20 U/L 14-54 Ast (Sgot) 24 U/L 12-42 eGFR Non- 134.7 > 60 eGFR 163.0 > 60 47 Alcohol Stat 03/28/2009 Alcohol 191.8 mg/dL High None Detected 48 Urinalysis W/Microscopic 03/28/2009 Ua Color YELLOW Yellow Appearance-Urine CLEAR Clear Specific [place]-Ur 1.003 Low 1.010-1.030 Esterase-Urine TRACE Negative Nitrite NEGATIVE Negative Yfxwspchxxge-Dw-HYI NEGATIVE Negative Protein-Urine NEGATIVE Negative PH-Urine 6.5 5-9 Blood-Urine NEGATIVE Negative Ketones-Urine NEGATIVE Negative Bilirubin-Ur NEGATIVE Negative Glucose-Urine NEGATIVE Negative WBC-Urine 0-2 0-5 RBC-Urine 0-2 0-2 Epith Cells-Ur RARE None Bacteria-Urine TRACE None Amorphous Sed-U TRACE None CBC With Electronic Diff Stat 03/28/2009 White [...] Eosinophils 0.1 0-0.6 Abs Basophils 0.1 0-0.2 Laboratory test finding 2009 Vitamin B12 606 pg/mL 180-914 Comp Metabolic Panel 2009 Sodium 134 mmol/L Low 135-145 Potassium 3.7 mmol/L 3.5-5.0 Chloride 100 mmol/L Low 101-111 Co2 (Carbon Dioxide) 26.0 mmol/L 22-32 Anion Gap 8.0 mmol/L 2-11 49 Glucose 88 mg/dL 70-100 50 BUN 5 mg/dL Low 6-24 Creatinine 0.70 mg/dL 0.50-1.40 One Over Creatinine 1.40 BUN/Creatinine Ratio 7.1 Low 8-20 Calcium 10.0 mg/dL High 8.1-9.9 51 Total Protein 6.0 GM/DL Low 6.2-8.1 Albumin 3.9 GM/DL 3.6-5.4 Globulin 2.1 GM/DL 2-4 Albumin/Globulin Ratio 1.9 1-3 Bilirubin Total 0.8 mg/dL 0.4-1.5 52 Alkaline Phosphatase 72 U/L 30-110 Alt (SGPT) 25 U/L 14-54 Ast (Sgot) 38 U/L 12-42 eGFR Non- 91.3 > 60 eGFR 110.5 > 60 53 Urinalysis W/Microscopic 01/16/2009 Ua Color YELLOW Appearance-Urine CLEAR Specific [place]-Ur 1.002 Low 1.010-1.030 Esterase-Urine TRACE Negative Nitrite NEGATIVE Negative Pkcvownmibfr-Fx-BTG NEGATIVE Negative Protein-Urine NEGATIVE Negative PH-Urine 6.0 [...] Mean Corpuscular Volume 106 um3 High 79-97 54 Mean Corpuscular Hemoglob 37 pg High 27-31 [...] Eosinophils 0.2 0-0.6 Abs Basophils 0.1 0-0.2 55 DS3 01/16/2009 Amphetamines Urine Screen NONE DETECTED None Detect Barbituates Urine Screen NONE DETECTED None Detect Benzodiazepine Ur Screen NONE DETECTED None Detect Cannabinoid Urine Screen NONE DETECTED None Detect Cocaine Metabolites Urine NONE DETECTED None Detect Opiates Urine Screen NONE DETECTED None Detect PCP Urine Screen NONE DETECTED None Detect 56 Ua Stat 01/16/2009 Ua Color YELLOW Appearance-Urine CLEAR Specific [place]-Ur 1.002 Low 1.010-1.030 Esterase-Urine TRACE Negative Nitrite NEGATIVE Negative Awviubtctzev-Zl-TYN NEGATIVE Negative Protein-Urine NEGATIVE Negative PH-Urine 6.0 5-9 Blood-Urine NEGATIVE Negative Ketones-Urine NEGATIVE Negative Bilirubin-Ur NEGATIVE Negative Glucose-Urine NEGATIVE Negative CMP Panel Stat 01/16/2009 Sodium 132 mmol/L Low 135-145 Potassium 3.2 mmol/L Low 3.5-5.0 Chloride 100 mmol/L Low 101-111 Co2 (Carbon Dioxide) 22.0 mmol/L 22-32 Anion Gap 10.0 mmol/L 2-11 57 Glucose 79 mg/dL 70-100 58 BUN 8 mg/dL 6-24 Creatinine 0.70 mg/dL 0.50-1.40 One Over Creatinine 1.40 BUN/Creatinine Ratio 11.4 8-20 Calcium 8.8 mg/dL 8.1-9.9 59 Total Protein 6.0 GM/DL Low 6.2-8.1 Albumin 3.8 GM/DL 3.6-5.4 Globulin 2.2 GM/DL 2-4 Albumin/Globulin Ratio 1.7 1-3 Bilirubin Total 0.7 mg/dL 0.4-1.5 60 Alkaline Phosphatase 39 U/L 30-110 Alt (SGPT) 17 U/L 14-54 Ast (Sgot) 22 U/L 12-42 eGFR Non- 91.7 > 60 eGFR 110.9 > 60 61 Laboratory test finding 01/16/2009 Troponin-I (TnI) 0.01 NG/ML 62 Acetaminophen < 10 g/mL Low 10-30 63 Alcohol Stat 01/16/2009 Alcohol 226.2 mg/dL High None Detected 64 Salicylate Stat 01/16/2009 Salicylate < 4.0 mg/dL Less Than 30 65 Comp Metabolic Panel 12/22/2008 Sodium 142 mmol/L 135-145 Potassium 3.7 mmol/L 3.5-5.0 Chloride 108 mmol/L 101-111 Co2 (Carbon Dioxide) 23.0 mmol/L 22-32 Anion Gap 11.0 mmol/L 2-11 66 Glucose 74 mg/dL 70-100 67 BUN 4 mg/dL Low 6-24 Creatinine 0.60 mg/dL 0.50-1.40 One Over Creatinine 1.60 BUN/Creatinine Ratio 6.7 Low 8-20 Calcium 9.0 mg/dL 8.1-9.9 68 Total Protein 6.0 GM/DL Low 6.2-8.1 Albumin 3.6 GM/DL 3.6-5.4 Globulin 2.4 GM/DL 2-4 Albumin/Globulin Ratio 1.5 1-3 Bilirubin Total 1.0 mg/dL 0.4-1.5 69 Alkaline Phosphatase 61 U/L 30-110 Alt (SGPT) 25 U/L 14-54 Ast (Sgot) 68 U/L High 12-42 eGFR Non- 109.5 > 60 eGFR 132.5 > 60 70 CBC With Electronic Diff 12/22/2008 White Blood Count 9.8 CUMM 4.8-10.8 Red Cell Count 3.98 CUMM Low 4.2-5.4 Hemoglobin 15.0 g/dL 12.0-16.0 Hematocrit 44 % 35-47 Mean Corpuscular Volume 110 um3 High 79-97 71 Mean Corpuscular Hemoglob 38 pg High 27-31 [...] Eosinophils 0.2 0-0.6 Abs Basophils 0 0-0.2 72 Laboratory test finding 12/22/2008 TSH 3.72 MIU/ML 0.34-5.60 Erythrocyte Sed Rate 17 MM/HR 0-30 Lipid Profile (Trig/Chol/HDL) 12/22/2008 Triglyceride 581 mg/dL High 40- 200 Cholesterol 143 mg/dL Less Than 200 73 High Density Lipoprotein 32 mg/dL Low 40-60 74 Cholesterol/HDL Ratio 4.47 AVERAGE High 1-4.44 Low Density Lipoprotein (SEE NOTE) mg/dL Less Than 100 75 Celiac Panel 12/22/2008 Endomysial Abs Negative Negative 76 Gliadin Igg <1.0 U () 77 Gliadin Iga 1.3 U () 78 Reticulin AB Negative Negative 79 Protime 12/09/2008 Inr 1.07 0.86-1.13 80 Protime 13.0 SEC 10.7-13.6 81 Laboratory test finding 12/09/2008 PTT (Aptt) 37.5 25.15-38.53 82 Basic Metabolic Panel 12/09/2008 Sodium 138 mmol/L 135-145 Potassium 3.6 mmol/L 3.5-5.0 Chloride 107 mmol/L 101-111 Co2 (Carbon Dioxide) 24.0 mmol/L 22-32 Anion Gap 7.0 mmol/L 2-11 83 Glucose 102 mg/dL High 70-100 84 BUN 6 mg/dL 6-24 Creatinine 0.70 mg/dL 0.50-1.40 One Over Creatinine 1.40 BUN/Creatinine Ratio 8.6 8-20 Calcium 9.6 mg/dL 8.1-9.9 85 eGFR Non- 91.7 > 60 eGFR 110.9 > 60 86 CBC With Manual Diff 12/09/2008 White Blood Count 6.5 CUMM 4.8-10.8 Red Cell Count 3.83 CUMM Low 4.2-5.4 Hemoglobin 14.3 g/dL 12.0-16.0 Hematocrit 42 % 35-47 Mean Corpuscular Volume 109 um3 High 79-97 87 Mean Corpuscular Hemoglob 37 pg High 27-31 Mean Corpuscular HGB Cone 34 g/dL 32-36 Redcell Distribution WDTH 14 % 10.5-15 Platelet Count 217 CUMM 150-450 Mean Platelet Volume 7.8 um3 7.4-10.4 Polysegmented Neutrophil 79 % 38-83 Lymphocyte 18 % Low 25-47 Monocyte 1 % 0-13 Eosenophil 2 % 0-6 Absolute Neutrophil Count 5.1 Macrocytosis 1+ Polychromasia SLIGHT 1 RUN DATE: 05/20/11 [facility] NMI LIVE PAGE 1 RUN TIME: 1044 Specimen Inquiry RUN USER: INTERFACE Name: JANETH BLAND Accpamela#: [id number] Status: DIS Ko Re05/15/11 Age/Sex: 61/F Unit#: [id number] Location: [place] : 52 SPEC #: [id number] [place]: 05/15/11 STATUS: COMP REQ #: [id number] RECD: 05/15/[address] [facility] [address]: José Luis PENA, Elida Malagon SOURCE: BLOOD ENTR: 05/15/[address]: Eric [facility]NA,Patrizia [facility]VENO Dustin HOTEL HOUSEKEEPER,Bessy Murguia PA-C ORDERED: BLOOD CULTURE ACT WKST: 05/16/11 #1 Procedure Result Verified Site > AEROBIC CULTURE BOTTLE Final 05/20/11- 1044 ML NO GROWTH AFTER 5 DAYS > ANAEROBIC CULTURE BOTTLE Final 05/20/11- 1044 ML NO GROWTH AFTER 5 DAYS - [facility] State Permit #[id number] [address] [place], [place] [id number] DEPARTMENT OF PATHOLOGY, [address] [place] [address] [facility] Permit #[id number] Tyson Coles M.D. Director Jorje Kwok M.D. Beater Engineer 2 STOOL C S REJECTED; TRANSPORT MEDIA WAS FROZEN ON RECEIPT VERBAL TO ULYSSES ROBERSON) [facility] BY HYUN at 1336 on 03/03/10. Results read back accurately. 3 Giardia and cryptosporidium antigen testing performed by immunoassay. If patient is immunocompromised or has traveled to or is from a developing country, a full ova and parasite exam with microscopic (OPMIC) is recommended. All samples will be held one month in case full ova and parasite testing is requested. Contact the Microbiology Department at [phone]. TEST LIMITATIONS: As with all diagnostic procedures, [...] with the test and are not recommended. 4 NEGATIVE BY IMMUNOASSAY NEGATIVE BY IMMUNOASSAY 5 Anion gap measurement may be of limited value in the presence of any alkalosis, especially in a combined acid base disorder. . 6 Note change in reference range as of 10/16/07. The change was based on recommendations from the [employer]. 7 A metabolite of Naproxen, O-desmethylnaproxen, has been shown to interfere with the [place] method for measuring total bilirubin. Samples from patients who have taken Naproxen have shown spurious elevation in total bilirubin levels. 8 Because ethnic data is not always readily [...] 15-29 5 Kidney failure <15 (or dialysis) 9 1+ Macrocytosis 10 Anion gap measurement may be of limited value in the presence of any alkalosis, especially in a combined acid base disorder. . 11 Note change in reference range as of 10/16/07. The change was based on recommendations from the [employer]. 12 A metabolite of Naproxen, O-desmethylnaproxen, has been shown to interfere with the Jendrassik-Jan method for measuring total bilirubin. Samples from patients who have taken Naproxen have shown spurious elevation in total bilirubin levels. 13 Because ethnic data is not always readily [...] 15-29 5 Kidney failure <15 (or dialysis) 14 Please note updated reference range, effective 09/15/09 15 PLEASE NOTE NEW REFERENCE RANGE. 16 The detection limit for ETHANOL is 10.0 mg/dl . Values less than 10.0 mg/dl cannot be accurately measured. . 17 Recommended INR for Patients on Oral Anticoagulants Prophylaxis 2.0 - 3.0 Treatment of thrombosis 2.0 - 3.0 Prevention of embolism 2.0 - 3.0 Prevention of embolism from prosthetic heart valves 2.5 - 3.5 18 DIAGNOSIS,TREATMENT,AND THERAPY MUST BE BASED ON THE INR VALUE ALONE. 19 New Reference Range and Interpretation effective 11/28/2001 TnI (ng/ml) INTERPRETATION Less Than 0.06 ng/mL NOT SUPPORTIVE OF DIAGNOSIS OF [place] 0.06 - 0.50 ng/ml INDETERMINATE: SUGGEST SERIAL STUDIES IF CLINICALLY INDICATED. Greater than 0.5 ng/mL CONSISTENT WITH DIAGNOSIS OF [place] . 20 NO GROWTH AFTER 5 DAYS 21 NO GROWTH AFTER 5 DAYS 22 CALCIUM OXALATE CRYSTALS 23 GROUP D ENTEROCOCCUS 75^50-75,000 ORGANISMS/ML (MANY)^CCU 24 50^25-50,000 ORGANISMS/ML (MODERATE)^CCU 25 ADULT MCV GREATER THAN 105 FL INCUBATED 1/2 HR AT 37C WITHOUT SIGNIFICANT CHANGE. 26 Lymphopenia % 1+ Macrocytosis 27 Anion gap measurement may be of limited value in the presence of any alkalosis, especially in a combined acid base disorder. . 28 Note change in reference range as of 10/16/07. The change was based on recommendations from the [employer]. 29 A metabolite of Naproxen, O-desmethylnaproxen, has been shown to interfere with the Jendrassik-Jan method for measuring total bilirubin. Samples from patients who have taken Naproxen have shown spurious elevation in total bilirubin levels. 30 Because ethnic data is not always readily [...] 15-29 5 Kidney failure <15 (or dialysis) 31 CHOLESTEROL INTERPRETATION: Desirable: Less than 200 MG/DL Borderline-High Risk: 200-239 MG/DL High-Risk: 240 MG/DL and over 32 HDL INTERPRETATION: Undesirable: High Risk: Less than 40 MG/DL Desirable: Low Risk: Greater than 60 MG/DL 33 LDL INTERPRETATION: Low Risk Optimal Level: LDL Less than 100 MG/DL Near or Above Optimal: LDL 100-129 MG/DL Borderline High Risk: LDL 130-159 MG/DL High Risk: LDL 160-189 MG/DL Very High Risk: LDL Greater than 189 MG/DL 34 THE URINE SPECIMEN WAS TESTED AT THE LISTED CUTOFFS: DRUG CLASS TEST LEVEL (NG/ML) AMPHETAMINES 300 BARBITUATES 200 BENZODIAZEPINE METABOLITES 200 COCAINE METABOLITES 300 CANNABINOIDS 25 OPIATES 200 PCP 25 THIS IS A SCREENING PROCEDURE. POSITIVE RESULTS ARE NOT CONFIRMED. SPECIMEN WAS RECEIVED WITHOUT CHAIN OF CUSTODY. RESULTS SHOULD BE USED FOR MEDICAL PURPOSES ONLY. . 35 The detection limit for ETHANOL is 10.0 mg/dl . Values less than 10.0 mg/dl cannot be accurately measured. . 36 RESULTS VERIFIED BY REPEAT ANALYSIS ON THE SAME SAMPLE. REPEATED RESULT IS:131/R 37 Anion gap measurement may be of limited value in the presence of any alkalosis, especially in a combined acid base disorder. . 38 Note change in reference range as of 10/16/07. The change was based on recommendations from the [employer]. 39 Please note change in reference range effective 07 . 40 A metabolite of Naproxen, O-desmethylnaproxen, has been shown to interfere with the [place] method for measuring total bilirubin. Samples from patients who have taken Naproxen have shown spurious elevation in total bilirubin levels. 41 Because ethnic data is not always readily [...] 15-29 5 Kidney failure <15 (or dialysis) 42 THE URINE SPECIMEN WAS TESTED AT THE LISTED CUTOFFS: DRUG CLASS TEST LEVEL (NG/ML) AMPHETAMINES 300 BARBITUATES 200 BENZODIAZEPINE METABOLITES 200 COCAINE METABOLITES 300 CANNABINOIDS 25 OPIATES 200 PCP 25 THIS IS A SCREENING PROCEDURE. POSITIVE RESULTS ARE NOT CONFIRMED. SPECIMEN WAS RECEIVED WITHOUT CHAIN OF CUSTODY. RESULTS SHOULD BE USED FOR MEDICAL PURPOSES ONLY. . 43 Anion gap measurement may be of limited value in the presence of any alkalosis, especially in a combined acid base disorder. . 44 Note change in reference range as of 10/16/07. The change was based on recommendations from the [employer]. 45 Please note change in reference range effective 07 . 46 A metabolite of Naproxen, O-desmethylnaproxen, has been shown to interfere with the [place] method for measuring total bilirubin. Samples from patients who have taken Naproxen have shown spurious elevation in total bilirubin levels. 47 Because ethnic data is not always readily [...] 15-29 5 Kidney failure <15 (or dialysis) 48 The detection limit for ETHANOL is 10.0 mg/dl . Values less than 10.0 mg/dl cannot be accurately measured. . 49 Anion gap measurement may be of limited value in the presence of any alkalosis, especially in a combined acid base disorder. . 50 Note change in reference range as of 10/16/07. The change was based on recommendations from the [employer]. 51 Please note change in reference range effective 07 . 52 A metabolite of Naproxen, O-desmethylnaproxen, has been shown to interfere with the Jengisellik-Jan method for measuring total bilirubin. Samples from patients who have taken Naproxen have shown spurious elevation in total bilirubin levels. 53 Because ethnic data is not always readily [...] 15-29 5 Kidney failure <15 (or dialysis) 54 CONSISTENT WITH PREVIOUS RESULTS 55 1+ Macrocytosis 56 THE URINE SPECIMEN WAS TESTED AT THE LISTED CUTOFFS: DRUG CLASS TEST LEVEL (NG/ML) AMPHETAMINES 300 BARBITUATES 200 BENZODIAZEPINE METABOLITES 200 COCAINE METABOLITES 300 CANNABINOIDS 25 OPIATES 200 PCP 25 THIS IS A SCREENING PROCEDURE. POSITIVE RESULTS ARE NOT CONFIRMED. SPECIMEN WAS RECEIVED WITHOUT CHAIN OF CUSTODY. RESULTS SHOULD BE USED FOR MEDICAL PURPOSES ONLY. . 57 Anion gap measurement may be of limited value in the presence of any alkalosis, especially in a combined acid base disorder. . 58 Note change in reference range as of 10/16/07. The change was based on recommendations from the [employer]. 59 Please note change in reference range effective 07 . 60 A metabolite of Naproxen, O-desmethylnaproxen, has been shown to interfere with the Jendrassik-Jan method for measuring total bilirubin. Samples from patients who have taken Naproxen have shown spurious elevation in total bilirubin levels. 61 Because ethnic data is not always readily [...] 15-29 5 Kidney failure <15 (or dialysis) 62 New Reference Range and Interpretation effective 11/28/2001 TnI (ng/ml) INTERPRETATION Less Than 0.06 ng/mL NOT SUPPORTIVE OF DIAGNOSIS OF [place] 0.06 - 0.50 ng/ml INDETERMINATE: SUGGEST SERIAL STUDIES IF CLINICALLY INDICATED. Greater than 0.5 ng/mL CONSISTENT WITH DIAGNOSIS OF [place] . 63 TOXIC LEVELS: GREATER THAN 150 MCG/ML @ 4HR POST INGEST GREATER THAN 50 MCG/ML @ 12HR POST INGEST The detection limit for ACETAMINOPHEN is 10.0 mcg/ml . Values less than 10.0 mcg/ml cannot be accurately measured. . 64 The detection limit for ETHANOL is 10.0 mg/dl . Values less than 10.0 mg/dl cannot be accurately measured. . 65 The detection limit for SALICYLATE is 4.0 mg/dl. Values less than 4.0 mg/dl cannot be accurately measured. . 66 Anion gap measurement may be of limited value in the presence of any alkalosis, especially in a combined acid base disorder. . 67 Note change in reference range as of 10/16/07. The change was based on recommendations from the [employer]. 68 Please note change in reference range effective 07 . 69 A metabolite of Naproxen, O-desmethylnaproxen, has been shown to interfere with the Jendrassik-Jan method for measuring total bilirubin. Samples from patients who have taken Naproxen have shown spurious elevation in total bilirubin levels. 70 Because ethnic data is not always readily [...] 15-29 5 Kidney failure <15 (or dialysis) 71 CONSISTENT WITH PREVIOUS RESULTS 72 Lymphopenia % 1+ Macrocytosis 73 CHOLESTEROL INTERPRETATION: Desirable: Less than 200 MG/DL Borderline-High Risk: 200-239 MG/DL High-Risk: 240 MG/DL and over 74 HDL INTERPRETATION: Undesirable: High Risk: Less than 40 MG/DL Desirable: Low Risk: Greater than 60 MG/DL 75 UNABLE TO CALCULATE LDL TRIGLYCERIDE IS > 400 76 Analyte Specific Reagent This test was developed and its performance characteristics determined by Laboratory Medicine and Pathology, [facility]. This test has not been cleared or approved by the U.S. Food and Drug Administration. Test Performed by: [facility] Dpt of Lab Med and Pathology [address] [place] [address] Html Developer: Moreno Sheets III, M.D. 77 -- REFERENCE VALUE -- <20.0 (Negative) 20.0-30.0 (Weak Positive) >30.0 (Positive) Test Performed by: [facility] Dpt of Lab Med and Pathology [address] [place] [address] Html Developer: Moreno Sheets III, M.D. 78 -- REFERENCE VALUE -- <20.0 (Negative) 20.0-30.0 (Weak Positive) >30.0 (Positive) Test Performed by: [facility] Dpt of Lab Med and Pathology [address] [place] [address] Html Developer: Moreno Sheets III, M.D. 79 Test Performed by: [facility] Dpt of Lab Med and Pathology [address] [place] [address] Html Developer: Moreno Sheets III, M.D. 80 Recommended INR for Patients on Oral Anticoagulants Prophylaxis 2.0 - 3.0 Treatment of thrombosis 2.0 - 3.0 Prevention of embolism 2.0 - 3.0 Prevention of embolism from prosthetic heart valves 2.5 - 3.5 81 ATTENTION EFFECTIVE 07/07/08, THE IMPLEMENTATION OF NEW COAGULATION ANLAYZERS HAS CAUSED A SIGNIFICANT DIFFERENCE FOR PROTIME RESULTS IN SECONDS. THEREFORE, DIAGNOSIS,TREATMENT,AND THERAPY MUST BE BASED ON THE INR VALUE ONLY. 82 PLEASE NOTE NEW REFERENCE RANGE EFFECTIVE 08. 83 Anion gap measurement may be of limited value in the presence of any alkalosis, especially in a combined acid base disorder. . 84 Note change in reference range as of 10/16/07. The change was based on recommendations from the [employer]. 85 Please note change in reference range effective 07 . 86 Because ethnic data is not always readily [...] 15-29 5 Kidney failure <15 (or dialysis) 87 CONSISTENT WITH PREVIOUS RESULTS Procedures Date CPT Code Description Status 04/20/2017 90015 Closed Treatment Of Greater Trochanteric Completed 02/04/2017 16826 EKG, Interpretation Only Completed 12/13/2015 77649 Removal Devitalization Tissue Wound Less Than Equal 20 Completed Square CM 12/13/2015 09996 Removal Devitalization Tissue Wound Less Than Equal 20 Completed Square CM 10/18/2015 52527 Debridement Skin,& sq Tissue Completed 09/29/2015 86373 Debridement Skin,& sq Tissue Completed 09/22/2015 50804 Debridement Skin,& sq Tissue Completed 09/22/2015 71350 Debridement Skin,& sq Tissue Completed 08/11/2015 13542 Debridement Skin,& sq Tissue Completed 08/11/2015 68567 Debridement Skin,& sq Tissue Completed 08/11/2015 90865 Removal Devitalization Tissue Wound Less Than Equal 20 Completed Square CM 08/04/2015 20167 Removal Devitalization Tissue Wound Less Than Equal 20 Completed Square CM 08/04/2015 36427 Debridement Skin, Subcutaneous Tissue & Muscle Completed 05/05/2014 45345 ECHO Transthorasic Realtime 2D W Doppler & Color Flow Completed Hosp 04/24/2012 35015 EKG, Interpretation Only Completed 04/11/2012 95684 Closed TX Phalanx finger/thumb shaft w/o manipulation Completed 04/11/2012 56273 Closed TX Phalanx finger/thumb shaft w/o manipulation Completed 04/11/2012 32507 Rad Exam; Hand Limited Completed 04/11/2012 05861 Rad Exam; Fingers Completed 08/02/2011 07414 EKG, Interpretation Only Completed 02/09/2010 96274 EKG Tracing & Interpretation Completed 01/04/2009 59808 Event Monitor/Phys Review/Interp. Completed 12/17/2008 86868 Left Heart Catheterization Completed 12/17/2008 26771 Inj Proc LFT Vent/LFT Atrl Angio Completed 12/17/2008 51853 Coronary Angiography Completed 12/17/2008 10804 S/I/R Inj Proc Vent And Or Atrial Completed 12/17/2008 16587 Selective Coronary Angioplasty Completed 12/09/2008 43847 EKG Tracing & Interpretation Completed 11/29/2008 23444 Stress ECHO Interpretation/Report Hospital Completed 11/29/2008 34227 Treadmill Interp/Report Only Completed 11/29/2008 75810 Stress Test Supervsn W/Out I/R Completed 09/07/2008 23953 ECHO Transthoracic, Real-Time 2D With Doppler And Color Completed Flow 09/01/2008 28236 EKG Tracing & Interpretation Completed 07/20/2008 08270 Holter Monitor Interpretation Completed Encounters Type Date Location Provider CPT E/M Dx Office Visit 04/22/2017 [facility] , Carolyn Ramirez, N.P. 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 Hospitalists F10.920 E87.6 E83.42 Office Visit 02/11/2017 7:48a [facility] Michael Terry, 07903 K56.609 Assoc,pc Hospitalists Eriberto J44.9 F10.10 I10 Office Visit 02/10/2017 7:47a [facility] Terry, 39359 K56.609 Assoc,pc Hospitalists Eriberto J44.9 I10 F10.10 Office Visit 02/09/2017 7:47a [facility] Michael Terry, 21213 K56.609 Assoc,pc Hospitalists MStephanie J44.9 F10.10 I10 Office Visit 02/08/2017 7:46a [facility] Lucila Santa, 98024 K56.609 Hospitalists Eriberto J44.9 I10 F10.10 Office Visit 02/07/2017 7:00a [facility] Kandice Garcia 51475 R18.8 Of Ravinder See NP K56.7 Office Visit 02/07/2017 7:44a [facility] Lucila Santa, 84651 R10.84 Hospitalists MStephanie J44.9 F10.10 I10 Office Visit 02/06/2017 7:43a [facility] Lucila Arina, 18023 R10.84 Hospitalists MStephanie J44.9 F10.10 Office Visit 02/05/2017 7:42a [facility] Lucila Santa, 70878 K56.609 Hospitalists MStephanie J44.9 F10.10 I10 Office Visit 02/04/2017 7:42a [facility] Lucila Arina, 23348 R10.84 Hospitalists MStephanie J44.9 F10.10 Office Visit 02/03/2017 7:41a [facility] Eber Troy, 55896 R10.84 Assoc,pc Hospitalists NYajairaPYajaira J44.9 F10.10 I10 Office Visit 11/04/2016 9:35a [facility] [place], [address] R06.02 Assoc,pc Hospitalists MTono. E87.8 F10.929 I10 Office Visit 09/23/2016 4:10p [facility] Anna Cleveland, 75661 E87.6 Hospitalists D.O. E83.42 R22.0 F10.10 Office Visit 09/22/2016 4:09p [facility] Anna Duncanr, 98067 E87.6 Hospitalists D.O. E83.42 R22.0 F10.10 Office Visit 09/21/2016 4:08p [facility] Anna Duncanr, 84101 E87.6 Hospitalists D.O. E83.42 R22.0 F10.10 Office Visit 06/26[facility]2016 [facility] 56476 J44.1 Assoc, LYNDSAY Hospitalists F10.10 F41.9 F32.9 Office Visit 06/25/2016 12:42p [facility] Eber Robertson, 20015 J44.1 Hospitalists NYajairaPYajaira F10.10 F41.9 F32.9 Office Visit 01/26/2016 3:56p [facility] Eliseo Smalls, 83580 L97.223 AT [facility] M.D. Office Visit 10/13/2015 8:34a [facility] Eliseo Smalls, 69050 L97.223 AT [facility] M.DYajaira L97.221 Office Visit 08/30/2015 1:06p [facility], [place] [address] L08.9 Hospitalists T14.8 J44.9 F41.9 Office Visit 08/29/2015 1:06p [facility], Stevie Tan, 57275 L08.9 Hospitalists MStephanie T14.8 J44.9 F41.9 Office Visit 08/28/2015 1:05p [facility], Stevie Tan, 45946 L08.9 Hospitalists MStephanie T14.8 J44.9 F41.9 Office Visit 08/27/2015 1:05p [facility], Stevie Tan, 55204 L08.9 Hospitalists MStephanie T14.8 J44.9 F41.9 Office Visit 08/26/2015 1:04p [facility], Anna Cleveland, 47425 L08.9 Hospitalists DYajairaOYajaira T14.8 J44.9 F41.9 Office Visit 08/26/2015 1:42p [facility] Elías Catrer 86597 L97.929 Infectious Diseases Eriberto Boles L03.116 M60.062 Office Visit 08/25/2015 1:38p [facility] Elías Machado 49261 L03.116 Infectious Diseases Eriberto Boles M86.162 J44.9 Office Visit 08/25/2015 1:03p [facility], Anna Cleveland, 18995 L08.9 Hospitalists Eduard T14.8 J44.9 F41.9 Office Visit 08/24/2015 1:02p [facility], Eber Robertson, 90687 T14.8 Hospitalists Avinash J44.9 L08.9 F41.9 Office Visit 08/10/2015 1:00p [facility] Stevie Allen, 80006 S93.402A Of Jose Carlos Wei Office Visit 08/04/2015 9:51a [facility], 65691 L97.223 [facility] Eriberto L03.116 L97.221 V43.02xS Office Visit 08/02/2015 11:06a [facility] Rubi Mckeon, 07454 S81.802A Assoc, Hospitalists [place] V89.2xxA Office Visit 08/02/2015 9:40a [facility] EDER Alexander 24238 L03.90 Assoc, Hospitalists F10.10 J44.9 Z72.0 Office Visit 08/01/2015 9:40a [facility] EDER Alexander 46310 L03.90 Assoc, Hospitalists J44.9 F10.10 Z72.0 Office Visit 08/09/2014 8:30a [facility] [place], [address] 571.1 Assoc, Hospitalists Eriberto 272.4 496 401.9 Office Visit 12/24/2011 10:52a [facility], Nyasia Doyle, 73483 401.9 Hospitalists N.P. 291.81 305.00 272.2 Office Visit 12/23/2011 10:51a [facility] Assoc, Nyasia Doyle, 13722 272.2 Hospitalists N.P. 291.81 305.00 401.9 Office Visit 12/22/2011 10:51a [facility], Nyasia MoralesYajaira Vivek, 11500 401.9 Hospitalists N.P. 291.81 305.00 272.2 Office Visit 12/21/2011 10:50a [facility], Stevie Roger, 24673 291.81 Hospitalists N.P. 305.00 401.9 272.2 Office Visit 12/20/2011 10:49a [facility], Stevie Roger, 31941 291.81 Hospitalists N.P. 305.00 401.9 272.2 Office Visit 12/10/2011 2:22p [facility] Patrizia Reyes, 86982 291.81 Ass, Hospitalists Eriberto 794.8 Office Visit 02/09/2010 11:00a DO Not Use Rosalinda Cotton, 42236 787.91 [employer] Professor[place] M.D. 786.2 796.9 272.4 Office Visit 12/12/2009 10:30a DO Not Use Rosalinda Cotton, 70017 465.9 [employer] Professor[place] M.D. 782.3 Office Visit 11/23/2009 11:45a DO Not Use Rosalinda Cotton, 11965 784.0 [employer] Professor[place] M.D. Office Visit 11/18/2009 9:45a DO Not Use Rosalinda Cotton, 45059 305.01 [employer] Professor[place] M.D. 305.1 272.4 780.57 V04.81 Office Visit 03/30/2009 2:45a [facility] Laurie Bolaños M.D. 06089 303.91 Ass, Hospitalists Office Visit 03/29/2009 9:40a DO Not Use [employer] Professor AT Rosalinda Cotton, 48545 305.01 Lesa Wei Office Visit 2009 1:40p DO Not Use [employer] Professor AT Rosalinda Cotton, 30948 300.00 [facility] 782.9 Office Visit 12/22/2008 9:00a DO Not Use [employer] Professor AT [facility], 07932 786.09 [facility] 780.57 783.21 787.91 300.00 272.4 V04.81 Office Visit 12/21/2008 11:10a [facility] Qutayb S. hayd, 71606 786.05 M.D. 401.1 424.1 Office Visit 12/17/2008 8:00a [facility] Qutaybeh S. haydah, 39231 786.50 M.D. 272.4 401.1 Office Visit 12/09/2008 9:20a [facility] Qutayb S. haydah, 79073 786.05 M.D. 401.1 272.4 Office Visit 11/29/2008 10:00a [facility] Qutayb S. hayd, 89836 786.50 M.D. 786.05 401.1 272.4 Office Visit 09/01/2008 9:30a [facility] Qutayb S. haydah, 92687 427.61 M.D. 427.69 401.1 272.4 305.1 786.50 786.05 785.0 785.1 Plan of Care Future Appointment(s):11/08/2017 9:30 am - Sia Burt MD at [facility].10/31/2017 - Sia Burt, MDS42.211A Un[facility] disp fx of surgical neck of right humerus, initNew Medication:Ibuprofen 600 mgPercocet 5- 325 mgNew Labs:Basic Metabolic PanelVitamin D Total 25(Oh)Follow up:Follow up: next saturday
[2017-11-20] MEDS ORDERED: Albuterol/Ipratropium NEB.SOL* Albuterol 2.5 MG/Ipratropium 0.5 MG 3 ML INH ONE (18:56)
[2017-11-20] MEDS ORDERED: NS 0.9% 1000 ML* 1,000 ML IV ONE (18:57)
[2017-11-20] MEDS ORDERED: Potassium Chlor TAB* 20 MEQ TAB.ER PO ONE (21:20)
[2017-11-20] MEDS ORDERED: Potassium Chloride LIQUID* 20 MEQ PACKET PO ONE (22:25)
[2017-11-20] MEDS ORDERED: Ketorolac INJ* 30 MG/ML 1 ML VIAL IV PUSH ONE (22:47)
[2017-11-20] MEDS ORDERED: Albuterol 2.5 MG/3 ML NEB.SOL* (0.083%) INH ONE (22:47)
[2017-11-20] MEDS: NS 0.9% 1000 ML* 2,000 ML IV ONE (23:07)
--- NOTE | 2017-11-20 23:15 | ED ---
Progress - Progress Note Progress Note: The pt is a 67 y/o female. The pt is a sign out received from Dr. Escalante and pending disposition. Re-Evaluation - Re-Evaluation First Eval Re-Evaluation Time: 22:47 Change: Worse Comment: Pt looks pretty drowsy, complaining of severe arm pain. Course/Dx - Course Course Of Treatment: We discussed pt care with Dr. Paulson and he accepts pt care. [place] [facility] [place] with a dx of alcohol intoxication and dehydration. - Diagnoses Provider Diagnoses: Alcohol intoxication, Dehydration - Provider Notifications Discussed Care Of Patient With: Bryan Presley - Discussed pt care and he accepts Time Discussed With Above Provider: 23:13 Instructed by Provider To: Admit As Observation - Critical Care Time Critical Care Time: 30-74 min - 45 Discharge - Sign-Out/Discharge Documenting (check all that apply): Patient Departure - [place] [facility] [place] Discharge Plan Condition: Stable Disposition: ADMITTED TO [facility] Referrals: Dorcas Chan, ACCESS MANAGER [Primary Care Provider] - - Attestation Statements Document Initiated by Scribe: Yes Documenting Scribe: Choco Morales Provider For Whom Scribe is Documenting (Include Credential): Dr. Julia Bradford Scribe Attestation: Marquita, Choco Morales, gina for Dr. Julia Bradford on 11/20/17 at 6705.
--- NOTE | 2017-11-20 23:56 | HP ---
H&P (Free Text) History and Physical: PCP: Carmen Chan NP Date/Time of Evaluation: 11/20/2017 2335 CC: recurrent falls HPI: Mrs Bland is a 66YO female HX alcoholism, COPD, seizures who fell Oct 27 fracturing her RUE. Today she was getting off [employer] carrying groceries, fell , and subsequently was brought in for evaluation via EMS. She denies chest pain , SOB, palpitations, focal W/N/T, light-headedness, or other issues. She reports drinking 2 beers last night which is not consistent with her blood alcohol level of 297. She does report pain in her R elbow and persistent swelling. ED evaluated and identified hypotension in the systolic of 70s, markedly lower than her typical which is >120. It only improved to the 80-90s after 4L NS. Also concerning is an initial lactic acid of 2.9 which only improved to 2.4 after hydration. As such, she will be admitted, placed on WAM protocol, given additional hydration, further lab trending. Consideration for orthopedic evaluation in AM would be advised. PMedHx COPD PAOD s/p L carotid endarterectomy angina seizure disorder alcoholism HTN anxiety depression PTSD IBS OA Ambulatory Orders Nursing to reconcile. LORazepam TAB(*) [Ativan 1 MG TAB (*)] 0.5 - 1 mg PO BID PRN #60 tab MDD 2 mg Potassium Chlor TAB* [Potassium Chlor TAB 20 MEQ*] 20 meq PO BID 04/15/17 Magnesium Oxide TAB* [MagOx 400 TAB*] 400 mg PO QAM 06/10/17 QUEtiapine TAB* [Seroquel 25 MG TAB*] 50 - 100 mg PO BEDTIME 06/10/17 Tiotropium CAP.INH* [Spiriva CAP.INH*] 1 cap.inh INH QAM 06/10/17 Multivitamins/Minerals TAB* [Theragran/minerals TAB*] 1 tab PO QAM 08/08/17 Albuterol inh POWDER (NF) [Proair Respiclick] 108 mcg IN Q4HR 08/19/17 Mometasone/Formoter 200/5 MDI* [Dulera 200/5 MDI*] 2 puff INH BID #1 mdi Thiamine TAB* [Vitamin B-1 TAB 100 MG*] 100 mg PO DAILY tab 10/15/17 predniSONE TAB* [Deltasone 10 MG TAB*] 10 mg PO DAILY #30 tab 10/15/17 Allergies doxycycline Allergy (Intermediate, Verified 10/30/17 13:32) Swelling ankle swelling gabapentin Allergy (Intermediate, Verified 10/30/17 13:32) Swelling ankle swelling prednisone Adverse Reaction (Verified 10/30/17 13:32) made patient feel "wired" patient stated not allergic to , just doesn't like the feeling it gives her PSurgHx L carotid endarterectomy tonsillectomy appendectomy sectio x2 SocHx: 1/2PPD cigarettes, beer/wine/liquor daily, denies recreational drugs; lives alone; full code status FamHx: positive for dementia, HTN, CAD ROS: as above, otherwise reviewed and all were negative Constitutional: NAD, normally developed, well-nourished chronically ill appearing white female vitals: Vital Signs Temp 36.9 C 11/20/17 15:21 Pulse 96 11/20/17 23:15 Resp 20 11/20/17 23:15 BP 97/65 11/20/17 21:59 Pulse Ox 100 11/20/17 23:15 Intake & Output 11/19/17 11/20/17 11/20/17 23:59 11:59 23:59 Intake Total 1999 Balance 1999 Weight 56.699 kg Intake: IV Fluids 1999 HEENM: atraumatic; sclera/conjunctiva: non-icteric/mildly injected; hearing: clinically intact; oropharynx: clear, mucosa tacky Neck: soft tissue: non-tender; thyroid: normal Pulmonary: gasca-expiratory coarseness B, fair aeration, no accessory muscle use CV: RR/RR, normal S1S2, no carotid bruit, no jugular venous distention, 2+ B DP/ PT, 1+ RUE edema Abdominal: soft, non-distended, non-tender, no rebound/guarding/rigidity, normoactive bowel sounds, no hepatosplenomegaly or masses, no costovertebral angle tenderness Musculoskeletal: general: grossly intact, tender RUE and R ribs Integumental: multiple bruises on extremities of varying ages Psychiatric orientation: AA&O to PPS affect: calm mood: cooperative eye contact: poor content: unreliable responses: mildly slowed insight: poor Testing: Lab Results 0911/20/17 11/20/17 Range/Units 15:32 15:32 15:32 WBC 4.6 (3.5-10.8) 10^3/ul RBC 3.36 L (4.00-5.40) 10^6/ul Hgb 13.8 (12.0-16.0) g/dl Hct 39 (35-47) % MCV 117 H (80-97) fL MCH 41 H (27-31) pg MCHC 35 (31-36) g/dl RDW 15 (10.5-15) % Plt Count 171 (150-450) 10^3/ul MPV 7.6 (7.4-10.4) um3 Neut % (Auto) 59.8 (38-83) % Lymph % (Auto) 25.1 (25-47) % [place] % (Auto) 10.2 H (0-7) % Eos % (Auto) 1.9 (0-6) % Baso % (Auto) 3.0 H (0-2) % Absolute Neuts (auto) 2.8 (1.5-7.7) 10^3/ul Absolute Lymphs (auto) 1.2 (1.0-4.8) 10^3/ul Absolute Monos (auto) 0.5 (0-0.8) 10^3/ul Absolute Eos (auto) 0.1 (0-0.6) 10^3/ul Absolute Basos (auto) 0.1 (0-0.2) 10^3/ul Absolute Nucleated RBC 0 10^3/ul Nucleated RBC % 0.1 INR (Anticoag Therapy) (0.77-1.02) APTT (26.0-36.3) seconds Sodium 127 L (135-145) mmol/L Potassium 3.1 L (3.5-5.0) mmol/L Chloride 90 L (101-111) mmol/L Carbon Dioxide 26 (22-32) mmol/L Anion Gap 11 (2-11) mmol/L BUN 3 L (6-24) mg/dL Creatinine 0.34 L (0.51-0.95) mg/dL Est GFR ( Amer) 233.1 (>60) Est GFR (Non-Af Amer) 192.6 (>60) BUN/Creatinine Ratio 8.8 (8-20) Glucose 79 (70-100) mg/dL Lactic Acid 2.9 H* (0.5-2.0) mmol/L Calcium 9.3 (8.6-10.3) mg/dL Total Bilirubin 0.90 (0.2-1.0) mg/dL AST 25 (13-39) U/L ALT 11 (7-52) U/L Alkaline Phosphatase 86 (34-104) U/L Total Creatine Kinase 37 (10-223) U/L Troponin I 0.00 (<0.04) ng/mL Total Protein 6.2 L (6.4-8.9) g/dL Albumin 3.9 (3.2-5.2) g/dL Globulin 2.3 (2-4) g/dL Albumin/Globulin Ratio 1.7 (1-3) TSH 2.06 (0.34-5.60) mcIU/mL Urine Color Urine Appearance Urine pH (5-9) Ur Specific [place] (1.010-1.030) Urine Protein (Negative) Urine Ketones (Negative) Urine Blood (Negative) Urine Nitrate (Negative) Urine Bilirubin (Negative) Urine Urobilinogen (Negative) Ur Leukocyte Esterase (Negative) Urine Glucose (Negative) Salicylates < 2.50 (<30) mg/dL Urine Opiates Screen (None Detect) Acetaminophen < 15 mcg/mL Ur Barbiturates Screen (None Detect) Ur Phencyclidine Scrn (None Detect) Ur Amphetamines Screen (None Detect) U Benzodiazepines Scrn (None Detect) Urine Cocaine Screen (None Detect) U Cannabinoids Screen (None Detect) Serum Alcohol 297 H (<10) mg/dL 11/20/17 11/20/17 11/20/17 Range/Units 15:32 16:31 16:31 WBC (3.5-10.8) 10^3/ul RBC (4.00-5.40) 10^6/ul Hgb (12.0-16.0) g/dl Hct (35-47) % MCV (80-97) fL MCH (27-31) pg MCHC (31-36) g/dl RDW (10.5-15) % Plt Count (150-450) 10^3/ul MPV (7.4-10.4) um3 Neut % (Auto) (38-83) % Lymph % (Auto) (25-47) % [place] % (Auto) (0-7) % Eos % (Auto) (0-6) % Baso % (Auto) (0-2) % Absolute Neuts (auto) (1.5-7.7) 10^3/ul Absolute Lymphs (auto) (1.0-4.8) 10^3/ul Absolute Monos (auto) (0-0.8) 10^3/ul Absolute Eos (auto) (0-0.6) 10^3/ul Absolute Basos (auto) (0-0.2) 10^3/ul Absolute Nucleated RBC 10^3/ul Nucleated RBC % INR (Anticoag Therapy) 1.02 (0.77-1.02) APTT 35.5 (26.0-36.3) seconds Sodium (135-145) mmol/L Potassium (3.5-5.0) mmol/L Chloride (101-111) mmol/L Carbon Dioxide (22-32) mmol/L Anion Gap (2-11) mmol/L BUN (6-24) mg/dL Creatinine (0.51-0.95) mg/dL Est GFR ( Amer) (>60) Est GFR (Non-Af Amer) (>60) BUN/Creatinine Ratio (8-20) Glucose (70-100) mg/dL Lactic Acid (0.5-2.0) mmol/L Calcium (8.6-10.3) mg/dL Total Bilirubin (0.2-1.0) mg/dL AST (13-39) U/L ALT (7-52) U/L Alkaline Phosphatase (34-104) U/L Total Creatine Kinase (10-223) U/L Troponin I (<0.04) ng/mL Total Protein (6.4-8.9) g/dL Albumin (3.2-5.2) g/dL Globulin (2-4) g/dL Albumin/Globulin Ratio (1-3) TSH (0.34-5.60) mcIU/mL Urine Color Yellow Urine Appearance Clear Urine pH 7.0 (5-9) Ur Specific [place] 1.002 L (1.010-1.030) Urine Protein Negative (Negative) Urine Ketones Negative (Negative) Urine Blood Negative (Negative) Urine Nitrate Negative (Negative) Urine Bilirubin Negative (Negative) Urine Urobilinogen Negative (Negative) Ur Leukocyte Esterase Negative (Negative) Urine Glucose Negative (Negative) Salicylates (<30) mg/dL Urine Opiates Screen None detected (None Detect) Acetaminophen mcg/mL Ur Barbiturates Screen None detected (None Detect) Ur Phencyclidine Scrn None detected (None Detect) Ur Amphetamines Screen None detected (None Detect) U Benzodiazepines Scrn None detected (None Detect) Urine Cocaine Screen None detected (None Detect) U Cannabinoids Screen None detected (None Detect) Serum Alcohol (<10) mg/dL 11/20/17 11/20/17 11/20/17 Range/Units 19:04 21:35 21:35 WBC (3.5-10.8) 10^3/ul RBC (4.00-5.40) 10^6/ul Hgb (12.0-16.0) g/dl Hct (35-47) % MCV (80-97) fL MCH (27-31) pg MCHC (31-36) g/dl RDW (10.5-15) % Plt Count (150-450) 10^3/ul MPV (7.4-10.4) um3 Neut % (Auto) (38-83) % Lymph % (Auto) (25-47) % [place] % (Auto) (0-7) % Eos % (Auto) (0-6) % Baso % (Auto) (0-2) % Absolute Neuts (auto) (1.5-7.7) 10^3/ul Absolute Lymphs (auto) (1.0-4.8) 10^3/ul Absolute Monos (auto) (0-0.8) 10^3/ul Absolute Eos (auto) (0-0.6) 10^3/ul Absolute Basos (auto) (0-0.2) 10^3/ul Absolute Nucleated RBC 10^3/ul Nucleated RBC % INR (Anticoag Therapy) (0.77-1.02) APTT (26.0-36.3) seconds Sodium (135-145) mmol/L Potassium (3.5-5.0) mmol/L Chloride (101-111) mmol/L Carbon Dioxide (22-32) mmol/L Anion Gap (2-11) mmol/L BUN (6-24) mg/dL Creatinine (0.51-0.95) mg/dL Est GFR ( Amer) (>60) Est GFR (Non-Af Amer) (>60) BUN/Creatinine Ratio (8-20) Glucose (70-100) mg/dL Lactic Acid 2.4 H* (0.5-2.0) mmol/L Calcium (8.6-10.3) mg/dL Total Bilirubin (0.2-1.0) mg/dL AST (13-39) U/L ALT (7-52) U/L Alkaline Phosphatase (34-104) U/L Total Creatine Kinase (10-223) U/L Troponin I 0.00 0.00 (<0.04) ng/mL Total Protein (6.4-8.9) g/dL Albumin (3.2-5.2) g/dL Globulin (2-4) g/dL Albumin/Globulin Ratio (1-3) TSH (0.34-5.60) mcIU/mL Urine Color Urine Appearance Urine pH (5-9) Ur Specific [place] (1.010-1.030) Urine Protein (Negative) Urine Ketones (Negative) Urine Blood (Negative) Urine Nitrate (Negative) Urine Bilirubin (Negative) Urine Urobilinogen (Negative) Ur Leukocyte Esterase (Negative) Urine Glucose (Negative) Salicylates (<30) mg/dL Urine Opiates Screen (None Detect) Acetaminophen mcg/mL Ur Barbiturates Screen (None Detect) Ur Phencyclidine Scrn (None Detect) Ur Amphetamines Screen (None Detect) U Benzodiazepines Scrn (None Detect) Urine Cocaine Screen (None Detect) U Cannabinoids Screen (None Detect) Serum Alcohol (<10) mg/dL CT brain WO, personally reviewed: IMPRESSION: No definite intracranial mass or hemorrhage is noted. CT C-spine WO, personally reviewed: IMPRESSION: Degenerative disc disease at C5- C6 and C6-C7. No fracture is noted. CT C/A/P, personally reviewed: IMPRESSION: Comminuted fracture of the right humeral head with soft tissue swelling. No pneumothorax or hemothorax is noted. No retroperitoneal hematoma is identified. Lung prajapati appear clear. No intraperitoneal hematoma or abdominal aortic aneurysm is noted. Old injury of the right hip greater trochanter is noted. XRY R shoulder: IMPRESSION: Comminuted fracture of the right humeral head with overriding of the fracture fragment as well as fracture of the midshaft of the right clavicle. XRY R elbow: IMPRESSION: Anterior fat pad sign however no definite fracture is identified. Impression: 67F presenting acutely intoxicated w/ associated fall, recent RUE FX , persistent hypotension and lactic acidosis DIAGNOSIS & PLAN Primary persistent hypotension : IVFs, trend persistent lactic acidosis : IVFs, trend acute intoxication w/ fall in setting of active alcoholism : [facility] protocol : PT evaluation RUE pain w/ fall today & recent fall w/ fracture : sling immobilization : pain control : consider orthopedic consultation in AM hypoNatremia : likely beer potomania : IVFs, trend hypoKalemia : replace & recheck Secondary COPD, not in exacerbation : continue albuterol, mometasone/formoterol, & tiotropium PAOD s/p L CEA : check lipids in AM seizure disorder : no acute issues, not on medications HTN : not on medications, currently hypotensive anxiety : continue lorazepam & quetiapine depression : not on medications Admission Rational: observation for COPD exacerbation DVTp: SCDs, no anticoagulation in setting of fall Code Status: full HCP: daughter
[2017-11-21] MEDS ORDERED: Ondansetron ODT TAB* 4 MG PO PRN (00:15)
[2017-11-21] MEDS ORDERED: Melatonin 3 MG TAB PO PRN (00:15)
[2017-11-21] MEDS ORDERED: NS 0.9% 1000 ML* 1,000 ML IV SCH (00:15)
[2017-11-21] MEDS ORDERED: Acetaminophen TAB* 325 MG PO PRN (00:15)
[2017-11-21] MEDS ORDERED: Thiamine IV* 100 MG/ML 2 ML VIAL IM ONE (00:15)
[2017-11-21] MEDS ORDERED: Albuterol 2.5 MG/3 ML NEB.SOL* (0.083%) INH PRN (00:20)
[2017-11-21] MEDS: Albuterol 2.5 MG/3 ML NEB.SOL* (0.083%) INH SCH ×2 (03:44→07:30)
[2017-11-21] MEDS: oxyCODONE TAB* 5 MG TAB PO PRN ×4 (04:59→22:16)
[2017-11-21] MEDS: Omeprazole CAP* 20 MG PO SCH (04:59)
[2017-11-21] MEDS: Mometasone/Formoter 200/5 MDI INH SCH ×2 (07:31→19:41)
[2017-11-21] MEDS: Tiotropium CAP.INH* CAP.INH/18 MCG (USE ORDER SET !) INH SCH (07:31)
[2017-11-21 07:58] LABS: Hematocrit 37 % (35-47); Hemoglobin 12.9 g/dl (12.0-16.0); Mean Corpuscular HGB Conc 35 g/dl (31-36); Mean Corpuscular Hemoglobin 41 pg (27-31); Mean Corpuscular Volume 117 fL (80-97); Mean Platelet Volume 7.8 um3 (7.4-10.4); Platelet Count 173 10^3/ul (150-450); Red Blood Count 3.15 10^6/ul (4.00-5.40); Red Cell Distribution Width 15 % (10.5-15); White Blood Count 5.7 10^3/ul (3.5-10.8)
[2017-11-21 08:10] LABS: EGFR Non-African American 222.6 (>60)
[2017-11-21] MEDS ORDERED: Spiriva Inhaler DEVICE* 1 EACH DEVICE INH ONE (09:00)
[2017-11-21] MEDS: Folic Acid TAB* 1 MG PO SCH (10:43)
[2017-11-21] MEDS: Multivitamins/Minerals TAB PO SCH (10:43)
[2017-11-21] MEDS: Thiamine TAB* 100 MG TAB PO SCH (10:43)
[2017-11-21] MEDS: Docusate CAP* 100 MG PO SCH ×2 (10:44→20:02)
[2017-11-21] MEDS: LORazepam TAB(*) 0.5 MG PO PRN (10:51)
[2017-11-21] MEDS ORDERED: Nicotine GUM* 2 MG PO PRN (15:37)
[2017-11-21] MEDS ORDERED: Potassium Chlor TAB* 20 MEQ TAB.ER PO ONE ×2 (16:27)
[2017-11-21] MEDS ORDERED: KCL 20 MEQ/100 ML IVPREMIX* 20 MEQ/100 ML BAG IV SCH (17:00)
[2017-11-21] MEDS ORDERED: Potassium Chloride LIQUID* 20 MEQ PACKET PO ONE (18:00)
--- NOTE | 2017-11-21 18:43 | PN ---
Subjective Date of Service: 11/21/17 Interval History: c/o mild right should pain , denies dizziness, chest pain or shortness of breath. denies abd pain n/v/d. not scoring on WA protocol Family History: Unchanged from Admission Social History: Unchanged from Admission Past Medical History: Unchanged from Admission Objective Active Medications: Acetaminophen (Tylenol Tab*) 650 mg PO Q6H PRN PRN Reason: FEVER/PAIN Last Admin: 11/21/17 03:23 Dose: 650 mg Albuterol (Ventolin 2.5 Mg/3 Ml Neb.Barbara*) 2.5 mg INH Q2H PRN PRN Reason: SOB/WHEEZING Docusate Sodium (Colace Cap*) 200 mg PO BID [facility] Last Admin: 11/21/17 10:44 Dose: 200 mg Folic Acid (Folvite Tab*) 1 mg PO DAILY [facility] Last Admin: 11/21/17 10:43 Dose: 1 mg Lactated Ringer's (Lactated Ringers 1000 Ml Bag*) 1,000 mls @ 125 mls/hr IV PER RATE [facility] Last Admin: 11/21/17 11:44 Dose: 125 mls/hr Potassium Chloride (Potassium Chloride 20 Meq/100 Ml Ivpremix*) 20 meq in 100 mls @ 50 mls/hr IV Q2H [facility] Stop: 11/21/17 18:59 Last Admin: 11/21/17 17:02 Dose: 50 mls/hr Lorazepam (Ativan Tab(*)) 0.5 mg PO BID PRN PRN Reason: ANXIETY Last Admin: 11/21/17 10:51 Dose: 0.5 mg Melatonin (Melatonin) 3 mg PO BEDTIME PRN; Protocol PRN Reason: Sleep Mometasone Furoate/Formoterol Fumar (Dulera 200/5 Mdi*) 2 puff INH BID [facility] Last Admin: 11/21/17 07:31 Dose: 2 puff Multivitamins/Minerals (Theragran/Minerals Tab*) 1 tab PO DAILY [facility] Last Admin: 11/21/17 10:43 Dose: 1 tab Nicotine Polacrilex (Nicotine Gum*) 2 mg PO Q2H PRN PRN Reason: CRAVING Last Admin: 11/21/17 17:02 Dose: 2 mg Omeprazole (Prilosec Cap*) 20 mg PO DAILY@0600 [facility] Last Admin: 11/21/17 04:59 Dose: 20 mg Ondansetron HCl (Zofran Odt Tab*) 4 mg PO Q6H PRN PRN Reason: n/v Oxycodone HCl (Roxycodone Tab*) 2.5 mg PO Q4H PRN PRN Reason: PAIN Last Admin: 11/21/17 18:08 Dose: 2.5 mg Quetiapine Fumarate (Seroquel Tab*) 50 mg PO BEDTIME [facility] Thiamine HCl (Vitamin B-1 Tab*) 100 mg PO DAILY [facility] Last Admin: 11/21/17 10:43 Dose: 100 mg Tiotropium [place] (Spiriva Cap.Inh*) 1 cap INH QAM HERNANDEZ Last Admin: 11/21/17 07:31 Dose: 1 cap Vital Signs - 8 hr 11/21/17 11/21/17 11/21/17 10:51 12:25 12:26 Temperature 98.5 F Pulse Rate 97 Respiratory 18 16 18 Rate Blood Pressure 119/81 (mmHg) O2 Sat by Pulse 95 Oximetry 11/21/17 11/21/17 11/21/17 13:08 14:00 14:41 Temperature 97.4 F Pulse Rate 89 Respiratory 16 18 18 Rate Blood Pressure 106/53 (mmHg) O2 Sat by Pulse 94 Oximetry 11/21/17 11/21/17 11/21/17 15:05 16:00 16:27 Temperature 98.1 F Pulse Rate 87 Respiratory 16 16 16 Rate Blood Pressure 122/79 (mmHg) O2 Sat by Pulse 95 Oximetry 11/21/17 11/21/17 18:08 18:09 Temperature 98.0 F Pulse Rate 91 Respiratory 17 24 Rate Blood Pressure 122/77 (mmHg) O2 Sat by Pulse 94 Oximetry Oxygen Devices in Use Now: None Appearance: alert, oriented x 3 resting in bed, no acute distress Eyes: No Scleral Icterus Ears/Nose/Mouth/Throat: Clear Oropharnyx, Mucous Membranes Moist Neck: NL Appearance and Movements; NL JVP, Trachea Midline Respiratory: Symmetrical Chest Expansion and Respiratory Effort, - - exp wheezes bilat, with scattered rhonchi Cardiovascular: NL Sounds; No Murmurs; No JVD, No Edema Abdominal: NL Sounds; No Tenderness; No Distention Extremities: No Edema, No Clubbing, Cyanosis, - - right arm in sling, radial pulse intact +2 Skin: No Rash or Ulcers Neurological: Alert and Oriented x 3 Nutrition: Taking PO's Result Diagrams: 11/21/17 07:00 11/22/17 06:30 Additional Lab and Data: Lab Results 11/20/17 11/20/17 11/20/17 Range/Units 15:32 15:32 15:32 WBC 4.6 (3.5-10.8) 10^3/ul RBC 3.36 L (4.00-5.40) 10^6/ul Hgb 13.8 (12.0-16.0) g/dl Hct 39 (35-47) % MCV 117 H (80-97) fL MCH 41 H (27-31) pg MCHC 35 (31-36) g/dl RDW 15 (10.5-15) % Plt Count 171 (150-450) 10^3/ul MPV 7.6 (7.4-10.4) um3 Neut % (Auto) 59.8 (38-83) % Lymph % (Auto) 25.1 (25-47) % [place] % (Auto) 10.2 H (0-7) % Eos % (Auto) 1.9 (0-6) % Baso % (Auto) 3.0 H (0-2) % Absolute Neuts (auto) 2.8 (1.5-7.7) 10^3/ul Absolute Lymphs (auto) 1.2 (1.0-4.8) 10^3/ul Absolute Monos (auto) 0.5 (0-0.8) 10^3/ul Absolute Eos (auto) 0.1 (0-0.6) 10^3/ul Absolute Basos (auto) 0.1 (0-0.2) 10^3/ul Absolute Nucleated RBC 0 10^3/ul Nucleated RBC % 0.1 INR (Anticoag Therapy) (0.77-1.02) APTT (26.0-36.3) seconds Sodium 127 L (135-145) mmol/L Potassium 3.1 L (3.5-5.0) mmol/L Chloride 90 L (101-111) mmol/L Carbon Dioxide 26 (22-32) mmol/L Anion Gap 11 (2-11) mmol/L BUN 3 L (6-24) mg/dL Creatinine 0.34 L (0.51-0.95) mg/dL Est GFR ( Amer) 233.1 (>60) Est GFR (Non-Af Amer) 192.6 (>60) BUN/Creatinine Ratio 8.8 (8-20) Glucose 79 (70-100) mg/dL Lactic Acid 2.9 H* (0.5-2.0) mmol/L Calcium 9.3 (8.6-10.3) mg/dL Total Bilirubin 0.90 (0.2-1.0) mg/dL AST 25 (13-39) U/L ALT 11 (7-52) U/L Alkaline Phosphatase 86 (34-104) U/L Troponin I 0.00 (<0.04) ng/mL Total Protein 6.2 L (6.4-8.9) g/dL Albumin 3.9 (3.2-5.2) g/dL Globulin 2.3 (2-4) g/dL Albumin/Globulin Ratio 1.7 (1-3) TSH 2.06 (0.34-5.60) mcIU/mL Urine Color Urine Appearance Urine pH (5-9) Ur Specific [place] (1.010-1.030) Urine Protein (Negative) Urine Ketones (Negative) Urine Blood (Negative) Urine Nitrate (Negative) Urine Bilirubin (Negative) Urine Urobilinogen (Negative) Ur Leukocyte Esterase (Negative) Urine Glucose (Negative) Salicylates < 2.50 (<30) mg/dL Urine Opiates Screen (None Detect) Acetaminophen < 15 mcg/mL Ur Barbiturates Screen (None Detect) Ur Phencyclidine Scrn (None Detect) Ur Amphetamines Screen (None Detect) U Benzodiazepines Scrn (None Detect) Urine Cocaine Screen (None Detect) U Cannabinoids Screen (None Detect) Serum Alcohol 297 H (<10) mg/dL 11/20/17 11/20/17 11/20/17 Range/Units 15:32 16:31 16:31 WBC (3.5-10.8) 10^3/ul RBC (4.00-5.40) 10^6/ul Hgb (12.0-16.0) g/dl Hct (35-47) % MCV (80-97) fL MCH (27-31) pg MCHC (31-36) g/dl RDW (10.5-15) % Plt Count (150-450) 10^3/ul MPV (7.4-10.4) um3 Neut % (Auto) (38-83) % Lymph % (Auto) (25-47) % [place] % (Auto) (0-7) % Eos % (Auto) (0-6) % Baso % (Auto) (0-2) % Absolute Neuts (auto) (1.5-7.7) 10^3/ul Absolute Lymphs (auto) (1.0-4.8) 10^3/ul Absolute Monos (auto) (0-0.8) 10^3/ul Absolute Eos (auto) (0-0.6) 10^3/ul Absolute Basos (auto) (0-0.2) 10^3/ul Absolute Nucleated RBC 10^3/ul Nucleated RBC % INR (Anticoag Therapy) 1.02 (0.77-1.02) APTT 35.5 (26.0-36.3) seconds Sodium (135-145) mmol/L Potassium (3.5-5.0) mmol/L Chloride (101-111) mmol/L Carbon Dioxide (22-32) mmol/L Anion Gap (2-11) mmol/L BUN (6-24) mg/dL Creatinine (0.51-0.95) mg/dL Est GFR ( Amer) (>60) Est GFR (Non-Af Amer) (>60) BUN/Creatinine Ratio (8-20) Glucose (70-100) mg/dL Lactic Acid (0.5-2.0) mmol/L Calcium (8.6-10.3) mg/dL Total Bilirubin (0.2-1.0) mg/dL AST (13-39) U/L ALT (7-52) U/L Alkaline Phosphatase (34-104) U/L Troponin I (<0.04) ng/mL Total Protein (6.4-8.9) g/dL Albumin (3.2-5.2) g/dL Globulin (2-4) g/dL Albumin/Globulin Ratio (1-3) TSH (0.34-5.60) mcIU/mL Urine Color Yellow Urine Appearance Clear Urine pH 7.0 (5-9) Ur Specific [place] 1.002 L (1.010-1.030) Urine Protein Negative (Negative) Urine Ketones Negative (Negative) Urine Blood Negative (Negative) Urine Nitrate Negative (Negative) Urine Bilirubin Negative (Negative) Urine Urobilinogen Negative (Negative) Ur Leukocyte Esterase Negative (Negative) Urine Glucose Negative (Negative) Salicylates (<30) mg/dL Urine Opiates Screen None detected (None Detect) Acetaminophen mcg/mL Ur Barbiturates Screen None detected (None Detect) Ur Phencyclidine Scrn None detected (None Detect) Ur Amphetamines Screen None detected (None Detect) U Benzodiazepines Scrn None detected (None Detect) Urine Cocaine Screen None detected (None Detect) U Cannabinoids Screen None detected (None Detect) Serum Alcohol (<10) mg/dL Microbiology and Other Data: Microbiology 11/21/17 17:52 Legionella Urinary Antigen - Final Urine Negative Legionella Antigen Streptococcus pneumoniae Ag Screen - Final Negative S. pneumo Antigen 11/20/17 15:42 Aerobic Blood Culture - Preliminary Blood Venous No Growth Day 1 Anaerobic Blood Culture - Preliminary No Growth Day 1 11/20/17 15:32 Aerobic Blood Culture - Preliminary Blood Venous No Growth Day 1 Anaerobic Blood Culture - Preliminary Blood MRSA/MSSA (PCR) - Final Mrsa Negative S.aureus Negative Assess/Plan/Problems-Billing Assessment: Ms. Bland is a 67 y.o female with a past medical history significant for alcohol abuse, seizures and COPD who fell at home. Patient also had a recent fall in the beginning of October fracturing her right humerus. Patient was also found to have a new right mid shaft clavicle fracture . - Patient Problems (1) Fall Current Visit: Yes Status: Acute Comment: Patient reports that she lost her balance and fell - patient also had a recent fall in the beginning of october at which time she sustained a fracture to the right humerus - patient was found to have a alcohol level 297 (2) Closed right clavicular fracture Current Visit: Yes Status: Acute Code(s): S42.001A - FRACTURE OF UNSP PART OF RIGHT CLAVICLE, INIT FOR CLOS FX SNOMED Code(s): 30448433 Comment: right clavicle fracture on x ray- seen on clavicle xray 10/30/17 as well- not new right arm is currently in a sling for her right humerus fracture (3) Fracture, humerus Current Visit: Yes Status: Acute Code(s): S42.309A - UNSP FRACTURE OF SHAFT OF HUMERUS, UNSP ARM, INIT SNOMED Code(s): 68729241 Comment: s/p right humerus fracture on 10/29/17 sling to right arm at all times - follow with Dr. Lane as an outpatient (4) Hypokalemia Current Visit: No Status: Acute Priority: High Code(s): E87.6 - HYPOKALEMIA SNOMED Code(s): 67973341 Comment: - Replete and recheck in the AM - (5) Alcoholism Current Visit: No Status: Chronic Priority: High Code(s): F10.20 - ALCOHOL DEPENDENCE, UNCOMPLICATED SNOMED Code(s): 5847663 Comment: - Long-term hx of ETOH abuse; hx of seizures. - continue thiamine, folic acid and mvi - [facility] protocol (6) COPD (chronic obstructive pulmonary disease) Current Visit: No Status: Chronic Code(s): J44.9 - CHRONIC OBSTRUCTIVE PULMONARY DISEASE, UNSPECIFIED SNOMED Code(s): 17364511 Comment: not in exacerbation will continue home inhalers (7) Tobacco user Current Visit: No Status: Chronic Code(s): Z72.0 - TOBACCO USE SNOMED Code (s): 601390784 Comment: Pt advised to quit smoking and avoid second hand smoke. - will give nicotine gum (8) DVT prophylaxis Current Visit: No Status: Acute Priority: High Code(s): KJD2789 - SNOMED Code(s): 237324157 Comment: scd's - no heparin in the setting of frequent falls (9) Full code status Current Visit: No Status: Acute Priority: High Code(s): Z78.9 - OTHER SPECIFIED HEALTH STATUS SNOMED Code(s): 175344645 Comment: Status and Disposition: inpatient
[2017-11-21] MEDS ORDERED: QUEtiapine TAB* 25 MG PO SCH (21:00)
[2017-11-22] MEDS: Omeprazole CAP* 20 MG PO SCH (05:16)
[2017-11-22] MEDS: oxyCODONE TAB* 5 MG TAB PO PRN ×2 (06:13→14:41)
[2017-11-22] MEDS: LORazepam TAB(*) 0.5 MG PO PRN ×2 (06:45→14:41)
[2017-11-22 07:04] LABS: EGFR Non-African American 222.6 (>60)
[2017-11-22] MEDS ORDERED: Magnesium Sulf 4 GM/100 ML IV* 4,000 MG/100 ML BAG IVPB ONE (08:12)
[2017-11-22] MEDS: Mometasone/Formoter 200/5 MDI INH SCH ×2 (08:24→20:16)
[2017-11-22] MEDS: Tiotropium CAP.INH* CAP.INH/18 MCG (USE ORDER SET !) INH SCH (08:24)
[2017-11-22] MEDS: Thiamine TAB* 100 MG TAB PO SCH (09:39)
[2017-11-22] MEDS: Docusate CAP* 100 MG PO SCH (09:39)
[2017-11-22] MEDS: Multivitamins/Minerals TAB PO SCH (09:39)
[2017-11-22] MEDS: Folic Acid TAB* 1 MG PO SCH (09:39)
[2017-11-22] MEDS ORDERED: Potassium Chlor TAB* 20 MEQ TAB.ER PO ONE (10:13)
--- NOTE | 2017-11-22 11:18 | PN ---
Subjective Date of Service: 11/22/17 Interval History: c/o right shoulder pain , but tolerable with medications. magnesium was critically low this AM at 0.9. Denies chest pain or palpitations. denies fever or chills. Patient does have a positive blood culture for staph epidermidis. denies abd pain n/v/d. denies any visual or auditory hallucinations. denies tremors or withdrawal symptoms. Family History: Unchanged from Admission Social History: Unchanged from Admission Past Medical History: Unchanged from Admission Objective Active Medications: Acetaminophen (Tylenol Tab*) 650 mg PO Q6H PRN PRN Reason: FEVER/PAIN Last Admin: 11/21/17 03:23 Dose: 650 mg Albuterol (Ventolin 2.5 Mg/3 Ml Neb.Barbara*) 2.5 mg INH Q2H PRN PRN Reason: SOB/WHEEZING Docusate Sodium (Colace Cap*) 200 mg PO BID [facility] Last Admin: 11/22/17 09:39 Dose: 200 mg Folic Acid (Folvite Tab*) 1 mg PO DAILY [facility] Last Admin: 11/22/17 09:39 Dose: 1 mg Lactated Ringer's (Lactated Ringers 1000 Ml Bag*) 1,000 mls @ 125 mls/hr IV PER RATE [facility] Last Admin: 11/22/17 03:57 Dose: 125 mls/hr Lorazepam (Ativan Tab(*)) 0.5 mg PO BID PRN PRN Reason: ANXIETY Last Admin: 11/22/17 06:45 Dose: 0.5 mg Melatonin (Melatonin) 3 mg PO BEDTIME PRN; Protocol PRN Reason: Sleep Mometasone Furoate/Formoterol Fumar (Dulera 200/5 Mdi*) 2 puff INH BID [facility] Last Admin: 11/22/17 08:24 Dose: 2 puff Multivitamins/Minerals (Theragran/Minerals Tab*) 1 tab PO DAILY [facility] Last Admin: 11/22/17 09:39 Dose: 1 tab Nicotine Polacrilex (Nicotine Gum*) 2 mg PO Q2H PRN PRN Reason: CRAVING Last Admin: 11/21/17 17:02 Dose: 2 mg Omeprazole (Prilosec Cap*) 20 mg PO DAILY@0600 [facility] Last Admin: 11/22/17 05:16 Dose: 20 mg Ondansetron HCl (Zofran Odt Tab*) 4 mg PO Q6H PRN PRN Reason: n/v Oxycodone HCl (Roxycodone Tab*) 2.5 mg PO Q4H PRN PRN Reason: PAIN Last Admin: 11/22/17 06:13 Dose: 2.5 mg Potassium Chloride (Klor Con Er Tab*) 20 meq PO BID [facility] Quetiapine Fumarate (Seroquel Tab*) 50 mg PO BEDTIME [facility] Last Admin: 11/21/17 22:16 Dose: 50 mg Thiamine HCl (Vitamin B-1 Tab*) 100 mg PO DAILY [facility] Last Admin: 11/22/17 09:39 Dose: 100 mg Tiotropium Spring (Spiriva Cap.Inh*) 1 cap INH QAM [facility] Last Admin: 11/22/17 08:24 Dose: 1 cap Vital Signs - 8 hr 11/22/17 11/22/17 11/22/17 04:07 06:04 06:10 Temperature 99.6 F 98.2 F Pulse Rate 85 111 85 Respiratory 22 22 Rate Blood Pressure 112/73 138/94 (mmHg) O2 Sat by Pulse 92 92 Oximetry 11/22/17 11/22/17 11/22/17 06:13 06:45 08:00 Temperature Pulse Rate Respiratory 18 18 16 Rate Blood Pressure (mmHg) O2 Sat by Pulse Oximetry 11/22/17 11/22/17 11/22/17 08:12 08:15 08:36 Temperature 98.0 F Pulse Rate 79 82 Respiratory 16 16 16 Rate Blood Pressure 141/79 (mmHg) O2 Sat by Pulse 95 94 Oximetry Oxygen Devices in Use Now: None Appearance: alert, appears comfortable, resting in bed Eyes: No Scleral Icterus Ears/Nose/Mouth/Throat: Clear Oropharnyx, Mucous Membranes Moist Neck: NL Appearance and Movements; NL JVP, Trachea Midline Respiratory: Symmetrical Chest Expansion and Respiratory Effort, Clear to Auscultation Cardiovascular: NL Sounds; No Murmurs; No JVD, No Edema Abdominal: NL Sounds; No Tenderness; No Distention Extremities: No Edema, No Clubbing, Cyanosis Skin: - - ecchymotic area to right posterior ribs and hip area, right shoulder. Neurological: Alert and Oriented x 3 Nutrition: Taking PO's Result Diagrams: 11/21/17 07:00 11/22/17 06:30 Additional Lab and Data: Lab Results 11/20/17 11/20/17 11/20/17 Range/Units 15:32 15:32 15:32 WBC 4.6 (3.5-10.8) 10^3/ul RBC 3.36 L (4.00-5.40) 10^6/ul Hgb 13.8 (12.0-16.0) g/dl Hct 39 (35-47) % MCV 117 H (80-97) fL MCH 41 H (27-31) pg MCHC 35 (31-36) g/dl RDW 15 (10.5-15) % Plt Count 171 (150-450) 10^3/ul MPV 7.6 (7.4-10.4) um3 Neut % (Auto) 59.8 (38-83) % Lymph % (Auto) 25.1 (25-47) % [place] % (Auto) 10.2 H (0-7) % Eos % (Auto) 1.9 (0-6) % Baso % (Auto) 3.0 H (0-2) % Absolute Neuts (auto) 2.8 (1.5-7.7) 10^3/ul Absolute Lymphs (auto) 1.2 (1.0-4.8) 10^3/ul Absolute Monos (auto) 0.5 (0-0.8) 10^3/ul Absolute Eos (auto) 0.1 (0-0.6) 10^3/ul Absolute Basos (auto) 0.1 (0-0.2) 10^3/ul Absolute Nucleated RBC 0 10^3/ul Nucleated RBC % 0.1 INR (Anticoag Therapy) (0.77-1.02) APTT (26.0-36.3) seconds Sodium 127 L (135-145) mmol/L Potassium 3.1 L (3.5-5.0) mmol/L Chloride 90 L (101-111) mmol/L Carbon Dioxide 26 (22-32) mmol/L Anion Gap 11 (2-11) mmol/L BUN 3 L (6-24) mg/dL Creatinine 0.34 L (0.51-0.95) mg/dL Est GFR ( Amer) 233.1 (>60) Est GFR (Non-Af Amer) 192.6 (>60) BUN/Creatinine Ratio 8.8 (8-20) Glucose 79 (70-100) mg/dL Lactic Acid 2.9 H* (0.5-2.0) mmol/L Calcium 9.3 (8.6-10.3) mg/dL Total Bilirubin 0.90 (0.2-1.0) mg/dL AST 25 (13-39) U/L ALT 11 (7-52) U/L Alkaline Phosphatase 86 (34-104) U/L Troponin I 0.00 (<0.04) ng/mL Total Protein 6.2 L (6.4-8.9) g/dL Albumin 3.9 (3.2-5.2) g/dL Globulin 2.3 (2-4) g/dL Albumin/Globulin Ratio 1.7 (1-3) TSH 2.06 (0.34-5.60) mcIU/mL Urine Color Urine Appearance Urine pH (5-9) Ur Specific [place] (1.010-1.030) Urine Protein (Negative) Urine Ketones (Negative) Urine Blood (Negative) Urine Nitrate (Negative) Urine Bilirubin (Negative) Urine Urobilinogen (Negative) Ur Leukocyte Esterase (Negative) Urine Glucose (Negative) Salicylates < 2.50 (<30) mg/dL Urine Opiates Screen (None Detect) Acetaminophen < 15 mcg/mL Ur Barbiturates Screen (None Detect) Ur Phencyclidine Scrn (None Detect) Ur Amphetamines Screen (None Detect) U Benzodiazepines Scrn (None Detect) Urine Cocaine Screen (None Detect) U Cannabinoids Screen (None Detect) Serum Alcohol 297 H (<10) mg/dL 11/20/17 11/20/17 11/20/17 Range/Units 15:32 16:31 16:31 WBC (3.5-10.8) 10^3/ul RBC (4.00-5.40) 10^6/ul Hgb (12.0-16.0) g/dl Hct (35-47) % MCV (80-97) fL MCH (27-31) pg MCHC (31-36) g/dl RDW (10.5-15) % Plt Count (150-450) 10^3/ul MPV (7.4-10.4) um3 Neut % (Auto) (38-83) % Lymph % (Auto) (25-47) % [place] % (Auto) (0-7) % Eos % (Auto) (0-6) % Baso % (Auto) (0-2) % Absolute Neuts (auto) (1.5-7.7) 10^3/ul Absolute Lymphs (auto) (1.0-4.8) 10^3/ul Absolute Monos (auto) (0-0.8) 10^3/ul Absolute Eos (auto) (0-0.6) 10^3/ul Absolute Basos (auto) (0-0.2) 10^3/ul Absolute Nucleated RBC 10^3/ul Nucleated RBC % INR (Anticoag Therapy) 1.02 (0.77-1.02) APTT 35.5 (26.0-36.3) seconds Sodium (135-145) mmol/L Potassium (3.5-5.0) mmol/L Chloride (101-111) mmol/L Carbon Dioxide (22-32) mmol/L Anion Gap (2-11) mmol/L BUN (6-24) mg/dL Creatinine (0.51-0.95) mg/dL Est GFR ( Amer) (>60) Est GFR (Non-Af Amer) (>60) BUN/Creatinine Ratio (8-20) Glucose (70-100) mg/dL Lactic Acid (0.5-2.0) mmol/L Calcium (8.6-10.3) mg/dL Total Bilirubin (0.2-1.0) mg/dL AST (13-39) U/L ALT (7-52) U/L Alkaline Phosphatase (34-104) U/L Troponin I (<0.04) ng/mL Total Protein (6.4-8.9) g/dL Albumin (3.2-5.2) g/dL Globulin (2-4) g/dL Albumin/Globulin Ratio (1-3) TSH (0.34-5.60) mcIU/mL Urine Color Yellow Urine Appearance Clear Urine pH 7.0 (5-9) Ur Specific [place] 1.002 L (1.010-1.030) Urine Protein Negative (Negative) Urine Ketones Negative (Negative) Urine Blood Negative (Negative) Urine Nitrate Negative (Negative) Urine Bilirubin Negative (Negative) Urine Urobilinogen Negative (Negative) Ur Leukocyte Esterase Negative (Negative) Urine Glucose Negative (Negative) Salicylates (<30) mg/dL Urine Opiates Screen None detected (None Detect) Acetaminophen mcg/mL Ur Barbiturates Screen None detected (None Detect) Ur Phencyclidine Scrn None detected (None Detect) Ur Amphetamines Screen None detected (None Detect) U Benzodiazepines Scrn None detected (None Detect) Urine Cocaine Screen None detected (None Detect) U Cannabinoids Screen None detected (None Detect) Serum Alcohol (<10) mg/dL Microbiology and Other Data: Microbiology 11/21/17 17:52 Legionella Urinary Antigen - Final Urine Negative Legionella Antigen Streptococcus pneumoniae Ag Screen - Final Negative S. pneumo Antigen 11/20/17 15:42 Aerobic Blood Culture - Preliminary Blood Venous No Growth Day 1 Anaerobic Blood Culture - Preliminary No Growth Day 1 11/20/17 15:32 Aerobic Blood Culture - Preliminary Blood Venous No Growth Day 1 Anaerobic Blood Culture - Preliminary Blood MRSA/MSSA (PCR) - Final Mrsa Negative S.aureus Negative Assess/Plan/Problems-Billing Assessment: Ms. Bland is a 67 y.o female with a past medical history significant for alcohol abuse, seizures and COPD who fell at home. Patient also had a recent fall in the beginning of October fracturing her right humerus. Patient was also found to have a new right mid shaft clavicle fracture . - Patient Problems (1) Fall Current Visit: Yes Status: Acute Comment: Patient reports that she lost her balance and fell - patient also had a recent fall in the beginning of october at which time she sustained a fracture to the right humerus - patient was found to have a alcohol level 297 - suspect this is contributing to her falls as well as she is currently in a sling for a fractured right humerus. (2) Closed right clavicular fracture Current Visit: Yes Status: Acute Code(s): S42.001A - FRACTURE OF UNSP PART OF RIGHT CLAVICLE, INIT FOR CLOS FX SNOMED Code(s): 27939901 Comment: right clavicle fracture on x ray- seen on clavicle xray 10/30/17 as well- not new right arm is currently in a sling for her right humerus fracture (3) Fracture, humerus Current Visit: Yes Status: Acute Code(s): S42.309A - UNSP FRACTURE OF SHAFT OF HUMERUS, UNSP ARM, INIT SNOMED Code(s): 04931380 Comment: s/p right humerus fracture on 10/29/17 sling to right arm at all times - follows with Dr. lal as an outpatient (4) Hypokalemia Current Visit: No Status: Acute Priority: High Code(s): E87.6 - HYPOKALEMIA SNOMED Code(s): 97220809 Comment: - Replete and recheck in the AM - will give 40 meq kcl po and start 20meq BID sarting tonight (5) Alcoholism Current Visit: No Status: Chronic Priority: High Code(s): F10.20 - ALCOHOL DEPENDENCE, UNCOMPLICATED SNOMED Code(s): 8022185 Comment: - Long-term hx of ETOH abuse; hx of seizures. - continue thiamine, folic acid and mvi - WAM protocol - no signs of withdrawal (6) COPD (chronic obstructive pulmonary disease) Current Visit: No Status: Chronic Code(s): J44.9 - CHRONIC OBSTRUCTIVE PULMONARY DISEASE, UNSPECIFIED SNOMED Code(s): 37749447 Comment: not in exacerbation will continue home inhalers (7) Tobacco user Current Visit: No Status: Chronic Code(s): Z72.0 - TOBACCO USE SNOMED Code (s): 494939980 Comment: Pt advised to quit smoking and avoid second hand smoke. - will give nicotine gum (8) Hypomagnesemia Current Visit: Yes Status: Acute Code(s): E83.42 - HYPOMAGNESEMIA SNOMED Code(s): 303655073 Comment: - Magnesium level 0.9 - will give 4 grams of magnesium and repeat level this afternoon - repeat was 1.9 but likely falsely elevated given the fact it was drawn at the same time her magnesium infusion was finishing. (9) DVT prophylaxis Current Visit: No Status: Acute Priority: High Code(s): PQQ8714 - SNOMED Code(s): 473290553 Comment: scd's - no heparin in the setting of frequent falls (10) Full code status Current Visit: No Status: Acute Priority: High Code(s): Z78.9 - OTHER SPECIFIED HEALTH STATUS SNOMED Code(s): 202572720 Comment: Status and Disposition: inpatient - LEFT AMA - PATIENT WISHES TO LEAVE AMA. SHE CURRENTLY IS WITH [facility] , CLINICAL SOBER , APPEARS TO HAVE INTACT JUDGMENT. IN MY OPINION THE PATIENT IS ABLE TO COMPREHEND AND MAKE DECISIONS BASED ON MEDICAL ADVICE PROVIDED. I HAVE ADVISED THE PATIENT THAT HER MAGNESIUM IS CRITICALLY LOW AND THAT HER POTASSIUM IS LOW WHICH COULD CAUSE LETHAL ARRHYTHMIAS AND THAT COULD POSSIBLY LEAD TO . THE PATIENT VERBALIZES THAT SHE UNDERSTANDS THAT SHE COULD A RESULT OF HER MAGNESIUM AND POTASSIUM ABNORMALITIES. I HAVE DISCUSS THE NEED FOR CONTINUED HEART MONITORING AND AND POTASSIUM AND MAGNESIUM REPLACEMENT TO MINIMIZE CARDIAC ARRHYTHMIAS. I HAVE TOLD THE PATIENT THAT IF HER MAGNESIUM AND POTASSIUM ABNORMALITIES ARE NOT CORRECTED THIS COULD LEAD TO HEART ARRHYTHMIAS WHICH COULD CAUSE SYNCOPAL EPISODE RESULTING WITH FURTHER INJURY OR COULD BE LETHAL AND CAUSE . I HAVE OFFERED THAT THE PATIENT STAY AND BE MONITORED ON TELEMETRY AND RECEIVE POTASSIUM AND MAGNESIUM THROUGH HER IV WITH CONTINUED LAB WORK MONITORING TO ENSURE NO DEVELOPMENTS OF ARRHYTHMIAS. THE PATIENT IS UNWILLING TO STAY FOR FURTHER LAB WORK MONITORING OR CARDIAC MONITORING. SHE IS REFUSING ANY FURTHER TREATMENT AND IS LEAVING AGAINST MEDICAL ADVICE. I HAVE PROVIDED THE PATIENT WITH A PRESCRIPTION FOR MAGNESIUM AND TOLD HER TO RESUME HER HOME POTASSIUM. I HAVE ANSWERED ALL QUESTIONS. I HAVE INSTRUCTED THE PATIENT TO RETURN TO THE EMERGENCY ROOM WITH ANY CHEST PAIN , PALPITATION , WEAKNESS OR ANY OTHER CONCERNING SYMPTOMS . I HAVE INSTRUCTED THE PATIENT TO FOLLOW UP WITH HER PRIMARY CARE PROVIDER IN WITH THE NEXT WEEK FOR FOLLOW UP LAB WORK .
[2017-11-22] MEDS ORDERED: Potassium Chloride LIQUID* 20 MEQ PACKET PO SCH (13:30)
[2017-11-22 17:10] VITALS: BP 128/81
--- NOTE | 2017-11-23 03:54 | DS ---
CC: Dorcas Chan NP DISCHARGE SUMMARY: ADDENDUM: DATE OF ADMISSION: 11/20/17 DATE OF DISCHARGE: Against medical advice 11/22/17. PRIMARY CARE PROVIDER: Dorcas Chan NP HOSPITAL COURSE: Mrs. Bland is a 67-year-old lady with past medical history of alcoholism, COPD, seiz ures, recent fall earlier in October with right upper extremity fracture, who was admitted due to r ecurrent falls, alcohol intoxication, hypertension, lactic acidosis. On admission, her alcohol level was 297. Her case was reviewed and discussed with Lizeth Abarca NP and she brought to my attent ion that the patient wished to leave the hospital against medical advice. The patient was found to gipson ve a magnesium of 0.9 and I went to the bedside and talked to her about the risks and benefits of her decision. The patient is alert and awake. She is not intoxicated. She has no signs of alcohol withdrawal at t his time and I believe she is capable of understanding the information and making any informed decisi on. I explained that her low magnesium is likely secondary to her alcohol intake and the low value c an be dangerous to her heart. I explained that she may have life-threatening arrhythmias. The patie nt stated that she needed to go home to work on personal issues and that if she felt ill again she wo uld reach out to the emergency room. I explained that a cardiac arrhythmia may cause loss of conscio usness and she may not be able to request help. The patient acknowledges the information but states t hat she can no longer stay in the hospital and she accepts the risk including but not limited to card iac arrhythmia, permanent loss of function, and . It is my assessment that the patient has [place] to make the decisions even though I do not agree with them. She did agree with some magnesium chan pplementation prior to discharge and she will also receive prescriptions to continue magnesium oxide as outpatient. Regarding her alcoholism, the patient states that she was sober for 8 years and then has had relapses with short periods of sobriety and she states that she went to outpatient rehab, inpatient rehab and she is very familiar with all the resources available in the community. The patient will be discharged home against medical advice today. [id number]/[facility] #: [id number]
--- NOTE | 2017-11-23 05:09 | DS ---
DISCHARGE SUMMARY: ADDENDUM: The patient did have a positive blood culture for Staphylococcus epidermidis. The patient was afebrile, asymptomatic. She did not have any skin ulceration or cellulitis. I suspect that this is a skin contaminant related in the blood culture as there is no growth in any of the other blood cultures. CONY MCMAHON, DISTRIBUTED GENERATION PROJECT MANAGER [id number]/[facility] #: [id number] [facility]
--- NOTE | 2017-11-23 06:39 | DS ---
ADDENDUM NOW INCLUDED ON THIS REPORT CC: Dr. Burt; oDrcas Chan NP * DISCHARGE SUMMARY: DATE OF ADMISSION: 11/22/17 DATE OF DISCHARGE: 11/22/17 PROVIDER: Lizeth Abarca NP ATTENDING PHYSICIAN: Dr. Lucila El * (dictated by Lizeth Abarca NP). PRIMARY CARE PROVIDER: Dorcas Chan NP PRIMARY DIAGNOSES: 1. Fall. 2. Alcohol intoxication. 3. Hypokalemia. 4. Hypomagnesemia. SECONDARY DIAGNOSES: 1. Chronic obstructive pulmonary disease. 2. Angina. 3. Seizure disorder. 4. Hypertension. 5. Anxiety. 6. Depression. 7. Posttraumatic stress disorder. 8. Irritable bowel syndrome. 9. Osteoarthritis. STUDIES COMPLETED WHILE ON THE HOSPITAL: She has a CT of the brain on . Radiologist's impression: No definite intracranial mass or hemorrhage is noted. She had a cervical spine CT: Degenerative disk disease at C5-C6, C6-C7, no fracture was noted. She had a CT of the chest, abdomen, and pelvis. Radiologist's impression: Comminuted fracture of the right humeral head with soft tissue swelling. No pneumothorax or hemothorax is noted. No retroperitoneal hematoma is identified. Lung prajapati appeared to be clear. No intraperitoneal hematoma or abdominal aortic aneurysm is noted. Old injury to the right hip greater trochanter is noted. She had an x-ray of the right elbow : Anterior fat pad sign, however, no definite fractures identified. She had a shoulder x-ray: Comminuted fracture of the right humeral head with overriding of the fracture fragments as well as fracture of the mid shaft of the right clavicle. DISCHARGE MEDICATIONS: Magnesium oxide 800 mg p.o. daily. Continued home medications: 1. Spiriva 1 cap p.o. q.a.m. 2. Thiamine 100 mg p.o. daily. 3. Seroquel 50 to 100 mg p.o. at bedtime. 4. Potassium 20 mEq p.o. b.i.d. 5. Multivitamin 1 tablet p.o. daily. 6. Dulera 2 puffs b.i.d. 7. Lorazepam 0.5 to 1 mg p.o. b.i.d. p.r.n. anxiety. 8. Albuterol inhaler 108 mcg p.o. q.4 hours as needed for shortness of breath. 9. Omeprazole 20 mg p.o. daily. 10. Folic acid 1 mg p.o. daily. HISTORY OF PRESENT ILLNESS AND HOSPITAL COURSE: Ms. Bland is a 67-year-old female with a history of alcoholism, COPD, seizures, who fell on 10/27/17 fracturing her right humeral head. Today, on the day of admission, she was getting off the [employer] carrying her grocery, she fell and subsequently was brought for evaluation by EMS. She denies chest pain, shortness of breath, palpitations. Denies any focal weakness, numbness or tingling, lightheadedness or any other issues. She reports drinking 2 beers last night, which is not consistent with her blood alcohol level of 297. She does report pain in her right elbow and persistent swelling. ED evaluated and identified the patient was hypotensive with a systolic blood pressure in the 70s, markedly lower than her normal 120s and only improved to 90s after 4 L of normal saline. There were also concern of lactic acid of 2.9, which only improved to 2.4 after hydration. As such she will be managed and placed on WA protocol, given additional hydration and further lab trending to consider for orthopedic evaluation in the morning. While in the emergency room, she had routine lab work drawn, which showed an elevated lactic acid of 2.9, she was given normal saline, which she improved to 2.4. She has had no documented fever. She had lab work repeated during this hospitalization. Her potassium on admission was 3.1 and repeat after replacement was 3.4. Her magnesium level on 11/22/17 was 0.9, she was given 4 g of magnesium IV and repeat magnesium was 1.9. Today, the patient is wishing to leave against medical advice. She reports that she needs to go home. She has things she needs to tend to at home. She does not wish to stay. She has been placed and monitored on WA protocol. She has not required any medications. She denies any auditory or visual hallucinations. Denies any tremors. Denies any nausea or vomiting. Denies any seizures. The patient was advised of her critically low magnesium level as well as her low potassium level. The patient did again receive 4 g IV magnesium today, but would need continued monitoring and repeat lab work in the a.m. with a repeat lactic acid. The patient wishes not to stay for any further testing and wishes to leave. At this time, the patient will leave against medical advice. The patient is leaving against medical advice. Vital signs: Blood pressure 128 /81, temperature was 98.9, respirations were 22, heart rate was 88, O2 saturation on room air was 96%. DISCHARGE PLAN: The patient is leaving against medical advice. Activity should continue as tolerated. She should continue on a regular diet. 1. Falls. The patient has frequent falls. I suspect this is related to her alcohol abuse as her alcohol level on admission was 297. She does admit that she did drink beer prior to going grocery shopping and returning on the [employer] , she does report that after she returned home and fell, she also continued to drink alcohol. The patient has been advised to seek help for her alcohol abuse as I suspect this is contributing to her falls. 2. Hypokalemia. The patient was instructed to continue taking potassium 20 mEq twice a day. She was given potassium replacement during her hospitalization , but repeat potassium level was not drawn as the patient refused to have any further lab work drawn and refused to stay overnight for further evaluation of her lab work. 3. Hypomagnesemia. The patient had a critical low magnesium level this morning of 0.9. She was given 4 g of IV magnesium and repeat magnesium was 1.9. I suspect this is falsely elevated as the magnesium level was drawn at the time her magnesium infusion was finishing. I have recommended that she stay overnight and have a repeat magnesium level in the morning and be monitored on telemetry for any arrhythmias. The patient declined any further monitoring and any further lab work. I will give her magnesium oxide 800 mg, she can take 1 tablet p.o. daily for magnesium replacement. She should have a repeat magnesium level next week. She should follow up with her primary care provider for further monitoring of her electrolytes. 4. Right humeral head fracture. The patient should follow up with Dr. Burt as scheduled on Saturday. She should continue to use her sling as previously ordered by Dr. Burt. I did consult orthopedics during this admission, who recommended continued management with the sling as previously ordered. 5. Alcohol abuse. I have advised the patient to seek help for her alcohol abuse. The patient reports that she has participated in AA and other rehabs and has been successful in the past. She does report her longest period of sobriety was approximately 8 years. The patient was instructed to resume all of her previous medications as previously prescribed except with increasing magnesium to 800 mg p.o. daily. Again, the patient is leaving against medical advice. The patient is currently with capacity. She is clinically sober. She appears to have intact judgment and in my opinion, the patient is able to comprehend to make decisions based on the medical advice provided. I have advised the patient that her magnesium is critically low and that her potassium is low, which could cause lethal arrhythmias and could possibly lead to . The patient verbalized that she understands that she could as a result of her magnesium and potassium abnormalities. I have discussed the need for continued heart monitoring and potassium and magnesium replacement to minimize cardiac arrhythmias. I have told the patient that if her magnesium and potassium abnormalities are not corrected, this could lead to heart arrhythmias, which could cause syncopal episode resulting in further injury or could be lethal and cause . I have offered the patient to stay and be monitored on telemetry and receive potassium and magnesium through her IV with continued lab work monitoring to ensure no developments of arrhythmias and proper replacement of her potassium and magnesium. The patient is unwilling to stay for further lab work monitoring or cardiac monitoring. She is refusing any further treatment and is leaving against medical advice. I have provided the patient with the prescription for magnesium and told her to resume her home prescription for potassium. I have answered all of her questions. I have instructed the patient return to the emergency room as she has chest pain, palpitations, weakness, or any other concerning symptoms. I have instructed the patient to follow up with her primary care provider next week for followup lab work. The patient verbalized understanding. I have instructed the patient to follow up with her primary care provider in 4 to 7 days. She is also again instructed to return to the emergency room for any chest pain, shortness of breath, palpitations, or any other concerning symptoms. This is a summarization of her hospitalization. For further details, please obtain her entire medical record. TIME SPENT: Time spent on this AMA discharge was 60 minutes, greater than half that time was spent with the patient discussing her AMA discharge and instructions. CONDITION ON DISCHARGE: Fair. She is leaving against medical advice. LIZETH ABARCA NP ADDENDUM: The patient did have a positive blood culture for Staphylococcus epidermidis. The patient was afebrile, asymptomatic. She did not have any skin ulceration or cellulitis. I suspect that this is a skin contaminant related in the blood culture as there is no growth in any of the other blood cultures. LIZETH ABARCA, EDER [id number]/CPS #: [id number]/CPS #: [id number] VALENCIA
== END 2017-11-22 20:15 | disposition left against medical advice (07) | DRG 894 ==
LOC: ED 15:12 → MED 11-21 00:12 → OBSVTOIN 11-22 10:00
PROVIDERS: ADMIT Hospitalist; ATTEND Internal Medicine
DX: F10.229 Alcohol dependence with intoxication, unspecified (principal); S42.201A Unspecified fracture of upper end of right humerus, initial encounter for closed fracture; E87.2 Acidosis; E87.1 Hypo-osmolality and hyponatremia; Z91.81 History of falling; Z88.8 Allergy status to other drugs, medicaments and biological substances; I25.10 Atherosclerotic heart disease of native coronary artery without angina pectoris; E78.00 Pure hypercholesterolemia, unspecified; I10 Essential (primary) hypertension; J44.9 Chronic obstructive pulmonary disease, unspecified; Z87.01 Personal history of pneumonia (recurrent); K21.9 Gastro-esophageal reflux disease without esophagitis; K58.9 Irritable bowel syndrome, unspecified; M19.90 Unspecified osteoarthritis, unspecified site; M81.0 Age-related osteoporosis without current pathological fracture; H26.9 Unspecified cataract; Z98.51 Tubal ligation status; F32.9 Major depressive disorder, single episode, unspecified; F41.0 Panic disorder [episodic paroxysmal anxiety]; F43.10 Post-traumatic stress disorder, unspecified; F17.210 Nicotine dependence, cigarettes, uncomplicated; R58 Hemorrhage, not elsewhere classified; M50.30 Other cervical disc degeneration, unspecified cervical region; I95.9 Hypotension, unspecified; G40.909 Epilepsy, unspecified, not intractable, without status epilepticus; Z88.1 Allergy status to other antibiotic agents; Z81.8 Family history of other mental and behavioral disorders; Z82.49 Family history of ischemic heart disease and other diseases of the circulatory system; Y90.8 Blood alcohol level of 240 mg/100 ml or more; E87.6 Hypokalemia; S42.021A Displaced fracture of shaft of right clavicle, initial encounter for closed fracture; W19.XXXA Unspecified fall, initial encounter; Y92.9 Unspecified place or not applicable
CPT/HCPCS: 36415; 70450; 71260; 72125; 74177; 80048; 80053; 80061; 80307; 80320; 80329; 81003; 82550; 83605; 83735; 84443; 84484; 85025; 85027; 85610; 85730; 87040; 87077; 87150; 87186; 87205; 87899; 93005; 94640; 99285; 99406; A9270-GY; G0480; G8978-GP-CH; G8979-GP-CH; G8980-GP-CH; G8987-GO-CI; G8988-GO-CI; J1885; J3411; J3475; J3480; Q9967

== ENCOUNTER 2018-05-03 21:46 | Inpatient (IN) | payer MEDICARE, MEDICAID ==
[2018-05-03] MEDS ORDERED: Albuterol/Ipratropium NEB.SOL* Albuterol 2.5 MG/Ipratropium 0.5 MG 3 ML INH ONE (22:06)
[2018-05-03] MEDS ORDERED: methylPREDNISolone 125 MG* 2 ML VIAL IV ONE (22:07)
[2018-05-03] MEDS ORDERED: NS 0.9% 1000 ML** 2,000 ML IV ONE (22:07)
--- NOTE | 2018-05-03 22:12 | ED ---
Shortness of Breath - HPI Summary HPI Summary: This patient is a 68 year old F brought in by ambulance with a chief complaint of SOB since 2 days ago. The patient rates the pain 10/10 in severity. Patient reports CP, jaw pain, right arm pain, difficulty staying awake, fever, and bilateral LE edema. The right arm was broken in 10/2017, by falling, and is still healing. She states she last drank alcohol yesterday. PMHX HTN, HLD, PTSD , Depression, Alcohol abuse, COPD, anxiety. SHX pack a day tobacco, EtOH use. RX Vitamin supplements, occasional Seroquel for sleep and Ativan for anxiety. Vitals in the room: HR 96 bpm, BP 95/65. - History of Current Complaint Chief Complaint: EDChestPainROMI Time Seen by Provider: 05/03/18 21:57 Hx Obtained From: Patient Onset/Duration: Gradual Onset Dyspnea At: Rest Associated Signs & Symptoms: Chest Pain Unrelated to Cough, Fever, Calf Pain/ Swelling - Allergy/Home Medications Allergies/Adverse Reactions: Allergies Allergy/AdvReac Type Severity Reaction Status Date / Time doxycycline Allergy Intermediate Swelling Verified 10/30/17 13:32 gabapentin Allergy Intermediate Swelling Verified 10/30/17 13:32 prednisone AdvReac made Verified 10/30/17 13:32 patient feel "wired" PMH/Surg Hx/FS Hx/Imm Hx Endocrine/Hematology History: Reports: Hx Anemia - macrocytic anemia Denies: Hx Anticoagulant Therapy, Hx Blood Disorders, Hx Blood Transfusions, Hx Bone Marrow Disease, Hx Diabetes, Hx Systemic Lupus Erythematosus, Hx Sickle Cell Disease, Hx Thyroid Disease, Hx Unexplained Bleeding, Other Endocrine/ Hematological Disorders Cardiovascular History: Reports: Hx Angina, Hx Coronary Artery Disease - left carotid artery surgery, Hx Hypercholesterolemia, Hx Hypertension, Other Cardiovascular Problems/Disorders - carotid endarterectomy, peripheral arterial occlusive disease Denies: Hx Aneurysm, Hx Angioplasty, Hx Auto Implanted Cardiovert Defib, Hx Cardiac Arrest, Hx Cardiomegaly, Hx Congenital Heart Disease, Hx Congestive Heart Failure, Hx Deep Vein Thrombosis, Hx Embolism, Hx Hypotension, Hx Pacemaker/ICD, Hx Peripheral Vascular Disease, Hx Rheumatic Fever, Hx Syncope, Hx Valvular Heart Disease Respiratory History: Reports: Hx Chronic Bronchitis, Hx Chronic Obstructive Pulmonary Disease (COPD), Hx Pneumonia, Other Respiratory Problems/Disorders - SMOKER Denies: Hx Asthma, Hx Cystic Fibrosis, Hx Lung Cancer, Hx Pleural Effusion, Hx Pulmonary Edema, Hx Pulmonary Embolism, Hx Seasonal Allergies, Hx Sleep Apnea GI History: Reports: Hx Gastroesophageal Reflux Disease - prn, Hx Irritable Bowel, Hx Ulcer, Other GI Disorders - adhesions, IBS Denies: Hx Cirrhosis, Hx Crohn's Disease, Hx Diverticulosis, Hx Gall Bladder Disease, Hx Gastrointestinal Bleed, Hx Hiatal Hernia, Hx Jaundice, Hx Obstructive Bowel, Hx Ileostomy, Hx Pyloric Stenosis History: Reports: Other Problems/Disorders - hx of UTI Denies: Hx Acute Renal Failure, Hx Benign Prostatic Hyperplasia, Hx Chronic Renal Failure, Hx Dialysis, Hx Kidney Infection, Hx Kidney Stones, Hx Renal Disease Musculoskeletal History: Reports: Hx Arthritis - osteo arthritis, osteoporosis, Hx Orthopedic Injury - broken fingers, Other Musculoskeletal History - Past injury to R hand. Denies: Hx Back Problems, Hx Bursitis, Hx Congenital Bone Abnormalities, Hx Fibromyalgia, Hx Gout, Hx Osteoporosis, Hx Scoliosis, Hx Tendonitis Sensory History: Reports: Hx Cataracts - both, Hx Contacts or Glasses - doesn't wear them though, Hx Vision Problem, Other Sensory Impairments - floaters Denies: Hx Eye Injury, Hx Eye Prosthesis, Hx Glaucoma, Hx Macular Degeneration, Hx Deafness, Hx Hearing Aid, Hx Hearing Problem Opthamlomology History: Reports: Hx Cataracts - both, Hx Contacts or Glasses - doesn't wear them though, Hx Vision Problem, Other Sensory Impairments - floaters Denies: Hx Eye Injury, Hx Eye Prosthesis, Hx Glaucoma, Hx Macular Degeneration Neurological History: Reports: Hx Headaches - rarely, Hx [place] [facility] [place] Denies: Hx Dementia, Hx Developmental Delay, Hx Migraine, Hx Spinal Cord Injury, Hx Transient Ischemic Attacks (TIA), Other Neuro Impairments/Disorders Psychiatric History: Reports: Hx Anxiety - PTSD, Hx Depression - depressive disorder, Hx Panic Disorder - PTSD, Hx Post Traumatic Stress Disorder, Hx Inpatient Treatment, Hx Community Mental Health Tx, Hx Suicide Attempt, Hx Substance Abuse - ETOH, Other Psychiatric Issues/Disorders Denies: Hx Attention Deficit Hyperactivity Disorder, Hx Eating Disorder, Hx Schizophrenia, Hx Bipolar Disorder, Hx of Violent Episodes Against Others - Surgical History Surgery Procedure, Year, and Place: TONSILECTOMY ; APPENDECTOMY; X2 ; TUBAL LIGATION; CAROTID ENDERECTOMY (NO STENTINGS) Hx Anesthesia Reactions: Yes - ETHER CAUSED VOMITING - Immunization History Date of Tetanus Vaccine: PT STATES UNSURE Date of Influenza Vaccine: NONE Infectious Disease History: No Infectious Disease History: Denies: Hx Clostridium Difficile, Hx Hepatitis, Hx Human Immunodeficiency Virus (HIV), Hx Shingles, Hx Tuberculosis, Traveled Outside the [place] in Last 30 Days - Family History Known Family History: Positive: Cardiac Disease - Father, Other - father - colon ca, h/o ETOH abuse; mom- alzheimer's dz - Social History Alcohol Use: Daily Alcohol Amount: wine and beer Hx Substance Use: No Substance Use Type: Reports: None Substance Use Comment - Amount & Last Used: pt aware of mental & physical risks of etoh, not willing/ready to change Hx Tobacco Use: Yes Smoking Status (MU): Light Every Day Tobacco Smoker Type: Cigarettes Amount Used/How Often: 1ppd, smoked for 40 years, did not smoke during pregnancies, stopped for 6 Have You Smoked in the Last Year: Yes Review of Systems Positive: Fever Positive: Other - jaw pain Positive: Chest Pain Positive: Shortness Of Breath Positive: Myalgia - right arm, jaw, Edema - LE Neurological: Other - difficulty staying awake All Other Systems Reviewed And Are Negative: Yes Physical Exam - Summary Physical Exam Summary: VITAL SIGNS: Reviewed. GENERAL: Patient is a unkempt, well-developed and nourished female who is lying comfortable in the stretcher. Patient is not in any acute respiratory distress. HEAD AND FACE: No signs of trauma. No ecchymosis, hematomas or skull depressions. No sinus tenderness. EYES: PERRLA, EOMI x 2, No injected conjunctiva, no nystagmus. EARS: Hearing grossly intact. Ear canals and tympanic membranes are within normal limits. MOUTH: Oropharynx within normal limits. NECK: Supple, trachea is midline, no adenopathy, no JVD, no carotid bruit, no c- spine tenderness, neck with full ROM. CHEST: Symmetric, no tenderness at palpation LUNGS: Clear to auscultation bilaterally. Bilateral inspiratory and expiratory wheezes. CVS: Regular rate and rhythm, S1 and S2 present, no murmurs or gallops appreciated. ABDOMEN: Soft, non-tender. No signs of distention. No rebound no guarding, and no masses palpated. Bowel sounds are normal. EXTREMITIES: FROM in all major joints, no edema, no cyanosis or clubbing. NEURO: Alert and oriented x 3. No acute neurological deficits. Speech is normal and follows commands. SKIN: Dry and warm Triage Information Reviewed: Yes Vital Signs On Initial Exam: Initial Vitals Temp Pulse Resp BP Pulse Ox 96.6 F 91 20 95/65 96 05/03/18 21:47 05/03/18 21:47 05/03/18 21:47 05/03/18 21:47 05/03/18 21:47 Vital Signs Reviewed: Yes Diagnostics - Vital Signs Vital Signs Temp Pulse Resp BP Pulse Ox 05/03/18 21:47 96.6 F 91 20 95/65 96 - Laboratory Result Diagrams: 05/03/18 22:33 05/03/18 22:33 Lab Statement: Any lab studies that have been ordered have been reviewed, and results considered in the medical decision making process. - Radiology CXR Radiology Interpretation Completed By: ED Physician Summary of Radiographic Findings: Hyperinflation, no acute process. Pending official radiology report. - EKG 22:15 Cardiac Rate: NL - 88 bpm EKG Rhythm: Sinus Rhythm Summary of EKG Findings: Q waves in V1 and V2 Course/Dx - Course Course Of Treatment: This patient is a 68 year old F brought in by ambulance with a chief complaint of SOB since 2 days ago. The patient rates the pain 10/ 10 in severity. Patient reports CP, jaw pain, right arm pain, difficulty staying awake, fever, and bilateral LE edema. An EKG reveals NSR 88 bpm, Q waves in V1 and V2. CXR reveals, per ED physician, hyperinflation, no acute process. Pending official radiology report. Test results with no significant abnormalities except for Lactic Acid 2.9 H. In the ED course the patient was given Albuterol, Methylprednisone, Folic Acid, Potassium Chloride, Thiamine, and IV fluids. We discussed patient care with Dr. Talbot, hospitalist, and they recommended admission. - Diagnoses Provider Diagnoses: COPD (chronic obstructive pulmonary disease), Alcohol intoxication - Physician Notifications Discussed Care of Patient With: Michele Talbot Time Discussed With Above Provider: 01:15 Instructed by Provider To: Admit As Inpatient Discharge - Sign-Out/Discharge Documenting (check all that apply): Patient Departure - admission Patient Received Moderate/Deep Sedation with Procedure: No - Discharge Plan Condition: Stable Disposition: ADMITTED TO [facility] - Billing Disposition and Condition Condition: STABLE Disposition: [facility] - Attestation Statements Document Initiated by Scribe: Yes Documenting Scribe: Gold Guo Provider For Whom Nasreen is Documenting (Include Credential): Tyrel Bradford MD Scribe Attestation: IGold, scribed for Tyrel Bradford MD on 05/04/18 at 0615. Scribe Documentation Reviewed: Yes Provider Attestation: The documentation as recorded by the Gold juan accurately reflects the service I personally performed and the decisions made by me, Tyrel Bradford MD Status of Scribe Document: Viewed
[2018-05-03 22:47] LABS: Hematocrit 40 % (35-47); Hemoglobin 13.9 g/dl (12.0-16.0); Mean Corpuscular HGB Conc 34 g/dl (31-36); Mean Corpuscular Hemoglobin 39 pg (27-31); Mean Corpuscular Volume 114 fL (80-97); Mean Platelet Volume 7.5 fL (7.4-10.4); Platelet Count 122 10^3/ul (150-450); Red Blood Count 3.56 10^6/ul (4.00-5.40); Red Cell Distribution Width 15 % (10.5-15); White Blood Count 4.4 10^3/ul (3.5-10.8)
[2018-05-03 22:51] LABS: Activated Partial Thrombo Time 39.4 seconds (26.0-36.3); INR 1.07 (0.77-1.02)
[2018-05-03 22:56] LABS: ALT 48 U/L (7-52); AST 151 U/L (13-39); Albumin 3.7 g/dL (3.2-5.2); Albumin/Globulin Ratio 1.7 (1-3); Alkaline Phosphatase 133 U/L (34-104); Anion Gap 10 mmol/L (2-11); BUN/Creatinine Ratio 13.5 (8-20); Blood Urea Nitrogen 5 mg/dL (6-24); C Reactive Protein < 1.00 mg/L (<8.01); CO2 Carbon Dioxide 29 mmol/L (22-32); Calcium 8.4 mg/dL (8.6-10.3); Chloride 96 mmol/L (101-111); Creatine Kinase 26 U/L (10-223); EGFR African American 210.8 (>60); EGFR Non-African American 174.2 (>60); Globulin 2.2 g/dL (2-4); Glucose 66 mg/dL (70-100); Potassium 3.3 mmol/L (3.5-5.0); Sodium 135 mmol/L (135-145); Total Protein 5.9 g/dL (6.4-8.9)
[2018-05-03 23:08] LABS: ABS Basophils 0.1 10^3/ul (0-0.2); ABS Eosinophils 0.1 10^3/ul (0-0.6); ABS Lymphocytes 1.7 10^3/ul (1.0-4.8); ABS Monocytes 0.3 10^3/ul (0-0.8); ABS Neutrophils 2.3 10^3/ul (1.5-7.7); ABS Nucleated RBC 0 10^3/ul; Eosinophil % 2.6 %; Lymphocyte % 38.2 %; Nucleated Red Blood Cells % 0.1
[2018-05-03 23:14] LABS: Alcohol 378 mg/dL (<10)
[2018-05-03 23:19] LABS: Influenza A Molecular NEGATIVE (Negative); Influenza B Molecular NEGATIVE (Negative)
[2018-05-03] MEDS ORDERED: Thiamine IV* 100 MG, Folic Acid IV* 1 MG, Multiple Vitamin IV ADULT* 10 ML in NS 0.9% 1... IV ONE (23:28)
[2018-05-03] MEDS ORDERED: Potassium Chlor TAB* 20 MEQ TAB.ER PO ONE (23:28)
[2018-05-03] MEDS ORDERED: Magnesium Sulfate 2 GM IV* 2 GM/50 ML BAG IVPB ONE (23:29)
[2018-05-03] MEDS ORDERED: Folic Acid IV* 1 MG, Multiple Vitamin IV ADULT* 10 ML in NS 0.9% 1000 ML** 1,000 ML IV ONE ×4 (23:38)
[2018-05-03] MEDS ORDERED: Thiamine TAB* 100 MG TAB PO ONE (23:59)
[2018-05-04] MEDS ORDERED: Albuterol 2.5 MG/3 ML NEB.SOL* (0.083%) INH PRN (03:32)
[2018-05-04] MEDS ORDERED: Thiamine IV* 100 MG/ML 2 ML VIAL IM ONE (03:35)
[2018-05-04] MEDS ORDERED: LORazepam TAB(*) 1 MG PO SCH (04:00)
[2018-05-04] MEDS: Enoxaparin(*) 40 MG/0.4 ML SYR SUBCUT SCH (04:55)
[2018-05-04] MEDS: methylPREDNISolone SOD 40 MG* 1 ML VIAL IV SCH ×2 (04:55→19:20)
[2018-05-04 06:03] LABS: Barbiturates Urine Screen None Detected (None Detect); Benzodiazepine Urine Screen None Detected (None Detect); Urine Appearance Clear; Urine Bilirubin Negative (Negative); Urine Blood Negative (Negative); Urine Cannabinoids Screen None Detected (None Detect); Urine Color Straw; Urine Glucose Negative (Negative); Urine Ketones Negative (Negative); Urine Nitrite Negative (Negative); Urine Protein Negative (Negative); Urine Specific Gravity 1.005 (1.010-1.030); Urine Urobilinogen Negative (Negative)
[2018-05-04] MEDS: Albuterol 2.5 MG/3 ML NEB.SOL* (0.083%) INH SCH (06:44)
--- NOTE | 2018-05-04 06:53 | HP ---
ADMITTING HISTORY AND PHYSICAL: DATE OF ADMISSION: 05/04/18 CHIEF COMPLAINT: Chest pain. HISTORY OF PRESENT ILLNESS: The patient is a 68-year-old lady with a history of angina, depression, and COPD, still currently smoking, previously mentioned that she only smokes one-half pack per day, but now mentions that she still smokes about 1 pack per day, who mentioned that 1 month prior to admission she began feeling dizzy, unsteady in her gait and felt weak and short of breath. However, she mentioned that she has not followed up with her primary care physician given that she was "snowed in." However, when it was pointed out that there has been some good weather during the past month, it was not clear why she did not fallow up with anyone nor her primary care physician. Most of her symptoms were relatively the same during this past month. One week prior to her admission she started complaining of some chest pain that may or may not radiate to her jaw. Persistence of her signs and symptoms led to her presentation in the ED. She also mentions that at the time that she began feeling short of breath a week ago that she fell when EMS was called and suggested that she be evaluated in the ED, but she refused. In the ED, she had been given magnesium sulfate 2 g IV, Solu-Medrol, potassium chloride p.o. 40 mEq , and thiamine. The patient was also bolused with 2 L normal saline. PAST MEDICAL AND SURGICAL HISTORY: COPD; carotid artery stenosis, status post left carotid endarterectomy; angina; seizure disorder; alcoholism; hypertension ; anxiety; depression; PTSD; IBS; osteoarthritis. Status post left carotid endarterectomy, tonsillectomy, appendectomy, and section. ALLERGIES: DOXYCYCLINE, GABAPENTIN, and PREDNISONE. FAMILY HISTORY: Positive for dementia, hypertension, and CAD. SOCIAL HISTORY: She mentions she smokes about 1 pack per day and drinks beer, wine, and liquor daily. Denies any history of recreational drugs. She lives alone. PHYSICAL EXAMINATION GENERAL: The patient is awake, somewhat confused, not in acute distress. VITAL SIGNS: The most recent vital signs of record with blood pressure of 98/ 68 and previous 110/85, 97 per minute heart rate, 20 per minute respiratory rate , saturating at 95%. HEENT: Normocephalic, atraumatic. PERRLA. Extraocular muscles intact. Negative for icterus. Moist oral mucosa. Negative throat erythema. NECK: Soft, supple with no cervical lymphadenopathy, positive for JVD and hepatojugular reflux. CHEST: Positive rhonchi and wheezes in the anterolateral area. HEART: S1, S2, within normal limits. Regular rate and rhythm. No murmurs, rubs, or gallops. ABDOMEN: Soft, nondistended, nontender. Normoactive bowel sounds x4 quadrants. EXTREMITIES: No cyanosis or clubbing, with 2+ right lower extremity edema. DIAGNOSTIC STUDIES/LABORATORY DATA: Chest x-ray, the vasculature appears prominent with no pleural effusion, costophrenic angles bilaterally are seen, otherwise no obvious infiltrate seen on exam. EKG shows no ST segment changes and normal sinus rhythm with a rate of 88. ASSESSMENT AND PLAN: The patient is a 68-year-old lady with a history of alcohol abuse, seizure disorder, chronic obstructive pulmonary disease, being admitted for chest pain and shortness of breath likely secondary to chronic obstructive pulmonary disease exacerbation. 1. Chest pain. She does have a history of angina and maybe a component of possible stable angina given first set of troponin is normal and that she has been symptomatic with chest pain and shortness of breath for the past week. We will continue to trend troponins as ordered and will continue watchful waiting. 2. Shortness of breath. We will place the patient on DuoNeb and Solu-Medrol as ordered. We will continue Dulera as ordered, likely precipitated by the patient's current smoking history. 3. Hypotension. Responded with 2 L normal saline bolus; however, the patient has an elevated jugular venous distention, which could certainly possibly be due to pulmonary hypertension. Given lower extremity edema on the right, which is presumed to be chronic given previous hip surgery on the ipsilateral area, we will obtain D-dimer and evaluate it for her age, consider a CT angio in a.m. At this time, the underlying reason for chronic obstructive pulmonary disease is presumed to be due to chronic smoking. She does have an elevated lactic acid and review of her previous hospitalizations, her lactic acid has been much higher in the past and possibly due to starvation, ketosis of alcoholism, and we will continue watchful waiting at this time. 4. ETOH intoxication. Advised lifestyle modifications. We will place the patient on WAM protocol as ordered. 5. Hypokalemia, corrected. We will continue watchful waiting. 6. Tobacco abuse disorder: Advised lifestyle modifications. We will place the patient on nicotine patch as ordered. 7. DVT prophylaxis: We will place the patient on Lovenox as ordered. 8. Disposition: For PT eval and for community mental health social worker eval. [id number]/CPS #: [id number] [place]
[2018-05-04] MEDS: Albuterol/Ipratropium NEB.SOL* Albuterol 2.5 MG/Ipratropium 0.5 MG 3 ML INH SCH ×3 (07:27→19:40)
[2018-05-04] MEDS: Mometasone/Formoter 200/5 MDI INH SCH ×2 (07:30→19:40)
[2018-05-04] MEDS: Magnesium Oxide TAB* 400 MG PO SCH (08:51)
[2018-05-04] MEDS: Multivitamins/Minerals TAB PO SCH (08:52)
[2018-05-04] MEDS: Pantoprazole TAB * 40 MG TAB PO SCH (08:52)
[2018-05-04] MEDS: Potassium Chlor TAB* 20 MEQ TAB.ER PO SCH (08:52)
[2018-05-04] MEDS: Thiamine TAB* 100 MG TAB PO SCH (08:52)
[2018-05-04] MEDS: Folic Acid TAB* 1 MG PO SCH (08:52)
[2018-05-04] MEDS: Nicotine PATCH 21 MG/24 HR* PATCH TRANSDERM SCH (08:52)
[2018-05-04] MEDS: Acetaminophen TAB* 325 MG PO PRN (08:53)
[2018-05-04] MEDS ORDERED: Folic Acid TAB* 1 MG PO SCH (09:00)
[2018-05-04 09:19] LABS: Magnesium 1.3 mg/dL (1.9-2.7)
[2018-05-04] MEDS: NS 0.9% 1000 ML** 1,000 ML IV SCH ×2 (09:19→19:39)
[2018-05-04] MEDS ORDERED: Magnesium Sulf 4 GM/100 ML IV* 4,000 MG/100 ML BAG IVPB ONE (10:00)
[2018-05-04] MEDS ORDERED: Magnesium Oxide TAB* 400 MG PO SCH (10:00)
--- NOTE | 2018-05-04 11:14 | PN ---
Subjective Date of Service: 05/04/18 Interval History: pt stated that she smokes 10 cig/day and drinks 4 beers a day. she had been falling, coughing and not eating, due tpo generalized weakness. she had been too weak to get her mail from the mailbox. Denies N/.V/D Pt c/o pleuritic CP on L that started occurring after a fall a couple of days ago Objective Active Medications: Acetaminophen (Tylenol Tab*) 650 mg PO Q4H PRN PRN Reason: PAIN Last Admin: 05/04/18 08:53 Dose: 650 mg Albuterol (Ventolin 2.5 Mg/3 Ml Neb.Barbara*) 2.5 mg INH Q2H PRN PRN Reason: SOB/WHEEZING Albuterol/Ipratropium (Duoneb (Albuterol 2.5 Mg/Ipratropium 0.5 Mg)) 1 neb INH [id number] AWAKE [facility] Last Admin: 05/04/18 07:27 Dose: 1 neb Enoxaparin Sodium (Lovenox(*)) 40 mg SUBCUT Q24H [facility] Last Admin: 05/04/18 04:55 Dose: 40 mg Folic Acid (Folvite Tab*) 1 mg PO DAILY [facility] Last Admin: 05/04/18 08:52 Dose: 1 mg Sodium Chloride (Ns 0.9% 1000 Ml) 1,000 mls @ 125 mls/hr IV PER RATE [facility] Last Admin: 05/04/18 09:19 Dose: 125 mls/hr Magnesium Sulfate (Magnesium Sulf 4 Gm/100 Ml Iv*) 4,000 mg in 100 mls @ 33.333 mls/hr IVPB ONCE ONE Stop: 05/04/18 12:59 Last Admin: 05/04/18 10:52 Dose: 33.333 mls/hr Lorazepam (Ativan Tab(*)) 0 - 6 mg PO .PER [facility] PROTOCOL [facility]; Protocol Magnesium Oxide (Magox 400 Tab*) 800 mg PO QAM [facility] Last Admin: 05/04/18 08:51 Dose: 800 mg Methylprednisolone Sodium Succinate (Solu-Medrol 40 Mg) 40 mg IV Q12H [facility] Last Admin: 05/04/18 04:55 Dose: 40 mg Mometasone Furoate/Formoterol Fumar (Dulera 200/5 Mdi*) 2 puff INH BID [facility] Last Admin: 05/04/18 07:30 Dose: 2 puff Multivitamins/Minerals (Theragran/Minerals Tab*) 1 tab PO DAILY [facility] Last Admin: 05/04/18 08:52 Dose: 1 tab Nicotine (Nicotine Patch 21 Mg/24 Hr*) 1 patch TRANSDERM DAILY [facility] Last Admin: 05/04/18 08:52 Dose: 1 patch Nicotine Polacrilex (Nicotine Gum*) 2 mg PO Q2H PRN PRN Reason: CRAVING Pantoprazole Sodium (Protonix Tab*) 40 mg PO DAILY [facility] Last Admin: 05/04/18 08:52 Dose: 40 mg Pharmacy Profile Note (Nicotine Patch Removal Note*) 1 note PATCH OFF 2100 [facility] Potassium Chloride (Klor Con Er Tab*) 20 meq PO DAILY [facility] Last Admin: 05/04/18 08:52 Dose: 20 meq Quetiapine Fumarate (Seroquel Tab*) 50 mg PO BEDTIME [facility] Thiamine HCl (Vitamin B-1 Tab*) 100 mg PO DAILY [facility] Last Admin: 05/04/18 08:52 Dose: 100 mg Vital Signs - 8 hr 05/04/18 05/04/18 05/04/18 03:19 03:29 04:05 Temperature 98.0 F 98.6 F Pulse Rate 98 106 97 Respiratory 20 18 20 Rate Blood Pressure 98/68 150/65 98/68 (mmHg) O2 Sat by Pulse 95 96 95 Oximetry 05/04/18 05/04/18 06:03 07:31 Temperature 97.8 F Pulse Rate 78 104 Respiratory 20 14 Rate Blood Pressure 108/73 (mmHg) O2 Sat by Pulse 95 91 Oximetry Oxygen Devices in Use Now: None Appearance: 68 yo F, appears older in age, in NAD, AAOx3 Eyes: No Scleral Icterus, PERRLA Ears/Nose/Mouth/Throat: NL Teeth, Lips, Gums, Mucous Membranes Moist Neck: NL Appearance and Movements; NL JVP, Trachea Midline Respiratory: Symmetrical Chest Expansion and Respiratory Effort, - - disant breath sounds b/l with scattered mid lung wheezes Cardiovascular: NL Sounds; No Murmurs; No JVD, RRR Abdominal: NL Sounds; No Tenderness; No Distention, No Hepatosplenomegaly Lymphatic: No Cervical Adenopathy Extremities: No Clubbing, Cyanosis, - - +2 pitting leg edema b/l Skin: No Nodules or Sclerosis Neurological: Alert and Oriented x 3, NL Muscle Strength and Tone, - - mild tremor noted in b/l UE's Result Diagrams: 05/03/18 22:33 05/03/18 22:33 Microbiology and Other Data: Microbiology 05/03/18 23:00 Influenza Types A,B Antigen - Final Nasopharyngeal Specimen received for Influenza A/B Molecular testing Assess/Plan/Problems-Billing Assessment: Ms. Bland is a 68 yo female with a past medical history significant for alcohol abuse, seizures and COPD who had been falling at home presented with CPD exacerbation and ETOH>300 - Patient Problems (1) COPD exacerbation Comment: cont Solu Medrol, and nebs, no evidence of infection (2) Pleuritic chest pain Comment: after a fall, suspect rib fx. rib films ordered. troponin had been neg. Pt is not well enough for cardiac stress test yet due to withdrawal, dehydration (3) Elevated lactic acid level Comment: ? starvation ketosis and dehydration? LA reported at 8, but pt is hemodynamically stable and nontoxic appearing. ? use of touriquet? will check ABG (4) Alcoholic liver disease Comment: will f/u LFT's in AM (5) Hypomagnesemia Comment: replacing PO/IV (6) Alcoholism Comment: - Long-term hx of ETOH abuse; hx of seizures. - continue thiamine, folic acid and mvi - [facility] protocol - tremor noted today (7) DVT prophylaxis Comment: lovenox
[2018-05-04] MEDS ORDERED: NS 0.9% 1000 ML** 1,000 ML IV ONE ×2 (11:15→21:32)
[2018-05-04] MEDS ORDERED: Potassium Chlor TAB* 20 MEQ TAB.ER PO ONE ×2 (11:16→19:08)
[2018-05-04 11:39] LABS: BUN/Creatinine Ratio 8.1 (8-20); Calcium 7.9 mg/dL (8.6-10.3); EGFR African American 210.8 (>60); EGFR Non-African American 174.2 (>60)
[2018-05-04] MEDS ORDERED: KCL 20 MEQ/100 ML IVPREMIX* 20 MEQ/100 ML BAG IV SCH (13:00)
[2018-05-04] MEDS ORDERED: LORazepam TAB(*) 1 MG PO ONE ×2 (13:29)
[2018-05-04] MEDS ORDERED: LORazepam TAB(*) 1 MG ONE (13:34)
[2018-05-04] MEDS: Nicotine GUM* 2 MG PO PRN ×2 (13:37→19:21)
[2018-05-04 13:54] LABS: Phosphorus 3.8 mg/dL (2.5-5.0)
[2018-05-04 18:37] LABS: BUN/Creatinine Ratio 6.4 (8-20); Calcium 8.2 mg/dL (8.6-10.3); EGFR African American 159.9 (>60); EGFR Non-African American 132.2 (>60)
[2018-05-04] MEDS: KCL 20 MEQ/100 ML IVPREMIX* 20 MEQ/100 ML BAG IV SCH ×2 (19:20→23:42)
[2018-05-04] MEDS: LORazepam TAB(*) 1 MG PO PRN (19:21)
[2018-05-04] MEDS: QUEtiapine TAB* 25 MG PO SCH (20:15)
--- NOTE | 2018-05-04 21:50 | PN ---
Subjective Date of Service: 05/04/18 Interval History: Paged by RN about BP being in the 70s. After review of data, unclear why pt was hypotensive so asked RN to check on other arm to see if this will be consistent before giving a bolus. Right arm shows CHANTALE of 120/60 and L. arm 76/62 , likely indicating PAD given Chest imaging did not show widened mediastinum and low suspicion for dissection. Defer for possible arterial or CTA w/ hospitalist colleague in AM to further eval. Objective Active Medications: Acetaminophen (Tylenol Tab*) 650 mg PO Q4H PRN PRN Reason: PAIN Last Admin: 05/04/18 08:53 Dose: 650 mg Albuterol (Ventolin 2.5 Mg/3 Ml Neb.Barbara*) 2.5 mg INH Q2H PRN PRN Reason: SOB/WHEEZING Albuterol/Ipratropium (Duoneb (Albuterol 2.5 Mg/Ipratropium 0.5 Mg)) 1 neb INH [id number] AWAKE [facility] Last Admin: 05/04/18 19:40 Dose: 1 neb Enoxaparin Sodium (Lovenox(*)) 40 mg SUBCUT Q24H [facility] Last Admin: 05/04/18 04:55 Dose: 40 mg Folic Acid (Folvite Tab*) 1 mg PO DAILY [facility] Last Admin: 05/04/18 08:52 Dose: 1 mg Sodium Chloride (Ns 0.9% 1000 Ml) 1,000 mls @ 125 mls/hr IV PER RATE [facility] Last Admin: 05/04/18 19:39 Dose: 125 mls/hr Potassium Chloride (Potassium Chloride 20 Meq/100 Ml Ivpremix*) 20 meq in 100 mls @ 50 mls/hr IV Q2H [facility] Stop: 05/04/18 22:59 Last Admin: 05/04/18 19:20 Dose: 50 mls/hr Lorazepam (Ativan Tab(*)) 0 - 6 mg PO .PER [facility] PROTOCOL [facility]; Protocol Lorazepam (Ativan Tab(*)) 1 mg PO Q4H PRN PRN Reason: ANXIETY Last Admin: 05/04/18 19:21 Dose: 1 mg Magnesium Oxide (Magox 400 Tab*) 800 mg PO QAM [facility] Last Admin: 05/04/18 08:51 Dose: 800 mg Methylprednisolone Sodium Succinate (Solu-Medrol 40 Mg) 40 mg IV Q12H [facility] Last Admin: 05/04/18 19:20 Dose: 40 mg Mometasone Furoate/Formoterol Fumar (Dulera 200/5 Mdi*) 2 puff INH BID [facility] Last Admin: 05/04/18 19:40 Dose: 2 puff Multivitamins/Minerals (Theragran/Minerals Tab*) 1 tab PO DAILY [facility] Last Admin: 05/04/18 08:52 Dose: 1 tab Nicotine (Nicotine Patch 21 Mg/24 Hr*) 1 patch TRANSDERM DAILY [facility] Last Admin: 05/04/18 08:52 Dose: 1 patch Nicotine Polacrilex (Nicotine Gum*) 2 mg PO Q2H PRN PRN Reason: CRAVING Last Admin: 05/04/18 19:21 Dose: 2 mg Pantoprazole Sodium (Protonix Tab*) 40 mg PO DAILY [facility] Last Admin: 05/04/18 08:52 Dose: 40 mg Pharmacy Profile Note (Nicotine Patch Removal Note*) 1 note PATCH OFF 2099 [facility] Potassium Chloride (Klor Con Er Tab*) 20 meq PO DAILY [facility] Last Admin: 05/04/18 08:52 Dose: 20 meq Quetiapine Fumarate (Seroquel Tab*) 50 mg PO BEDTIME [facility] Last Admin: 05/04/18 20:15 Dose: 50 mg Thiamine HCl (Vitamin B-1 Tab*) 100 mg PO DAILY [facility] Last Admin: 05/04/18 08:52 Dose: 100 mg Vital Signs - 8 hr 05/04/18 05/04/18 05/04/18 15:13 17:14 19:04 Temperature 98.2 F 98.4 F 98.5 F Pulse Rate 113 101 110 Respiratory 16 18 20 Rate Blood Pressure 98/70 104/69 101/74 (mmHg) O2 Sat by Pulse 96 95 94 Oximetry 05/04/18 05/04/18 05/04/18 19:14 19:21 19:43 Temperature Pulse Rate 78 Respiratory 16 16 18 Rate Blood Pressure (mmHg) O2 Sat by Pulse 96 Oximetry 05/04/18 21:23 Temperature 98.3 F Pulse Rate 105 Respiratory 18 Rate Blood Pressure 75/56 (mmHg) O2 Sat by Pulse 91 Oximetry Oxygen Devices in Use Now: None Result Diagrams: 05/03/18 22:33 05/04/18 18:12 Microbiology and Other Data: Microbiology 05/03/18 23:00 Influenza Types A,B Antigen - Final Nasopharyngeal Specimen received for Influenza A/B Molecular testing Assess/Plan/Problems-Billing Assessment: Ms. Bland is a 68 yo female with a past medical history significant for alcohol abuse, seizures and COPD who had been falling at home presented with CPD exacerbation and ETOH>300
[2018-05-04] MEDS: Nicotine Patch Removal NOTE PATCH OFF SCH (22:14)
[2018-05-05] MEDS: Nicotine GUM* 2 MG PO PRN ×5 (00:05→20:50)
[2018-05-05] MEDS: Albuterol/Ipratropium NEB.SOL* Albuterol 2.5 MG/Ipratropium 0.5 MG 3 ML INH SCH ×4 (02:48→19:40)
[2018-05-05] MEDS: methylPREDNISolone SOD 40 MG* 1 ML VIAL IV SCH (04:03)
[2018-05-05] MEDS: Enoxaparin(*) 40 MG/0.4 ML SYR SUBCUT SCH (04:03)
[2018-05-05] MEDS: NS 0.9% 1000 ML** 1,000 ML IV SCH ×2 (06:23→14:47)
[2018-05-05 06:42] LABS: Hematocrit 35 % (35-47); Hemoglobin 12.2 g/dl (12.0-16.0); Mean Corpuscular HGB Conc 35 g/dl (31-36); Mean Corpuscular Hemoglobin 39 pg (27-31); Mean Corpuscular Volume 114 fL (80-97); Mean Platelet Volume 7.7 fL (7.4-10.4); Platelet Count 81 10^3/ul (150-450); Red Cell Distribution Width 15 % (10.5-15); White Blood Count 4.3 10^3/ul (3.5-10.8)
[2018-05-05 07:04] LABS: ALT 41 U/L (7-52); AST 98 U/L (13-39); Albumin 3.5 g/dL (3.2-5.2); Albumin/Globulin Ratio 1.7 (1-3); Alkaline Phosphatase 113 U/L (34-104); Anion Gap 5 mmol/L (2-11); Blood Urea Nitrogen 4 mg/dL (6-24); CO2 Carbon Dioxide 31 mmol/L (22-32); Calcium 8.2 mg/dL (8.6-10.3); Chloride 98 mmol/L (101-111); EGFR African American 268.5 (>60); EGFR Non-African American 221.9 (>60); Globulin 2.1 g/dL (2-4); Glucose 173 mg/dL (70-100); Magnesium 1.5 mg/dL (1.9-2.7); Phosphorus 1.8 mg/dL (2.5-5.0); Potassium 3.3 mmol/L (3.5-5.0); Sodium 134 mmol/L (135-145); Total Protein 5.6 g/dL (6.4-8.9)
[2018-05-05] MEDS: Mometasone/Formoter 200/5 MDI INH SCH ×2 (07:42→19:40)
[2018-05-05] MEDS ORDERED: Magnesium Sulf 4 GM/100 ML IV* 4,000 MG/100 ML BAG IVPB ONE (08:52)
[2018-05-05] MEDS: Pantoprazole TAB * 40 MG TAB PO SCH (10:18)
[2018-05-05] MEDS: Multivitamins/Minerals TAB PO SCH (10:18)
[2018-05-05] MEDS: Magnesium Oxide TAB* 400 MG PO SCH (10:18)
[2018-05-05] MEDS: Nicotine PATCH 21 MG/24 HR* PATCH TRANSDERM SCH (10:18)
[2018-05-05] MEDS: Folic Acid TAB* 1 MG PO SCH (10:18)
[2018-05-05] MEDS: Thiamine TAB* 100 MG TAB PO SCH (10:19)
[2018-05-05] MEDS: Potassium Chlor TAB* 20 MEQ TAB.ER PO SCH (10:19)
[2018-05-05] MEDS: LORazepam TAB(*) 1 MG PO PRN ×2 (10:19→16:19)
[2018-05-05] MEDS: Potassium Acid Phosphate TAB* 500 MG PO SCH ×3 (10:29→20:55)
--- NOTE | 2018-05-05 12:11 | PN ---
Subjective Date of Service: 05/05/18 Interval History: Pt feels "much better today". Walked with assistance. Legs are with less edema since wrapped Objective Active Medications: Acetaminophen (Tylenol Tab*) 650 mg PO Q4H PRN PRN Reason: PAIN Last Admin: 05/04/18 08:53 Dose: 650 mg Albuterol (Ventolin 2.5 Mg/3 Ml Neb.Barbara*) 2.5 mg INH Q2H PRN PRN Reason: SOB/WHEEZING Albuterol/Ipratropium (Duoneb (Albuterol 2.5 Mg/Ipratropium 0.5 Mg)) 1 neb INH [id number] AWAKE [facility] Last Admin: 05/05/18 07:41 Dose: 1 neb Enoxaparin Sodium (Lovenox(*)) 40 mg SUBCUT Q24H [facility] Last Admin: 05/05/18 04:03 Dose: 40 mg Folic Acid (Folvite Tab*) 1 mg PO DAILY [facility] Last Admin: 05/05/18 10:18 Dose: 1 mg Sodium Chloride (Ns 0.9% 1000 Ml) 1,000 mls @ 125 mls/hr IV PER RATE [facility] Last Admin: 05/05/18 06:23 Dose: 125 mls/hr Lorazepam (Ativan Tab(*)) 0 - [address] [facility] PROTOCOL [facility]; Protocol Last Admin: 05/05/18 01:37 Dose: 2 mg Lorazepam (Ativan Tab(*)) 1 mg PO Q4H PRN PRN Reason: ANXIETY Last Admin: 05/05/18 10:19 Dose: 1 mg Magnesium Oxide (Magox 400 Tab*) 800 mg PO QAM [facility] Last Admin: 05/05/18 10:18 Dose: 800 mg Methylprednisolone Sodium Succinate (Solu-Medrol 40 Mg) 40 mg IV Q12H [facility] Last Admin: 05/05/18 04:03 Dose: 40 mg Mometasone Furoate/Formoterol Fumar (Dulera 200/5 Mdi*) 2 puff INH BID [facility] Last Admin: 05/05/18 07:42 Dose: 2 puff Multivitamins/Minerals (Theragran/Minerals Tab*) 1 tab PO DAILY [facility] Last Admin: 05/05/18 10:18 Dose: 1 tab Nicotine (Nicotine Patch 21 Mg/24 Hr*) 1 patch TRANSDERM DAILY [facility] Last Admin: 05/05/18 10:18 Dose: Not Given Nicotine Polacrilex (Nicotine Gum*) 2 mg PO Q2H PRN PRN Reason: CRAVING Last Admin: 05/05/18 10:20 Dose: 2 mg Pantoprazole Sodium (Protonix Tab*) 40 mg PO DAILY [facility] Last Admin: 05/05/18 10:18 Dose: 40 mg Pharmacy Profile Note (Nicotine Patch Removal Note*) 1 note PATCH OFF 2100 [facility] Last Admin: 05/04/18 22:14 Dose: 1 note Potassium Chloride (Klor Con Er Tab*) 20 meq PO DAILY [facility] Last Admin: 05/05/18 10:19 Dose: 20 meq Potassium Phosphate (K Phos Original Tab*) 500 mg PO TID [facility] Stop: 05/06/18 23:59 Last Admin: 05/05/18 10:29 Dose: 500 mg Quetiapine Fumarate (Seroquel Tab*) 50 mg PO BEDTIME [facility] Last Admin: 05/04/18 20:15 Dose: 50 mg Thiamine HCl (Vitamin B-1 Tab*) 100 mg PO DAILY [facility] Last Admin: 05/05/18 10:19 Dose: 100 mg Vital Signs - 8 hr 05/05/18 05/05/18 05/05/18 06:16 07:43 07:58 Temperature 98.3 F 97.8 F Pulse Rate 86 90 93 Respiratory 22 20 18 Rate Blood Pressure 152/65 154/70 (mmHg) O2 Sat by Pulse 96 90 93 Oximetry 05/05/18 05/05/18 08:00 10:19 Temperature Pulse Rate Respiratory 20 22 Rate Blood Pressure (mmHg) O2 Sat by Pulse Oximetry Oxygen Devices in Use Now: None Appearance: 68 yo F in nAD, aAOx3 Eyes: No Scleral Icterus, PERRLA Ears/Nose/Mouth/Throat: NL Teeth, Lips, Gums, Mucous Membranes Moist Neck: NL Appearance and Movements; NL JVP, Trachea Midline Respiratory: Symmetrical Chest Expansion and Respiratory Effort, - - mild wheezes b/l lower lungs Cardiovascular: NL Sounds; No Murmurs; No JVD, RRR Abdominal: NL Sounds; No Tenderness; No Distention Lymphatic: No Cervical Adenopathy Extremities: No Clubbing, Cyanosis, - - +2 pitting pedal edema b/l Skin: No Nodules or Sclerosis Neurological: Alert and Oriented x 3, NL Muscle Strength and Tone Result Diagrams: 05/05/18 06:15 05/05/18 06:15 Microbiology and Other Data: Microbiology 05/03/18 23:00 Influenza Types A,B Antigen - Final Nasopharyngeal Specimen received for Influenza A/B Molecular testing Assess/Plan/Problems-Billing Assessment: Ms. Bland is a 68 yo female with a past medical history significant for alcohol abuse, seizures and COPD who had been falling at home presented with CPD exacerbation and ETOH>300 - Patient Problems (1) COPD exacerbation Comment: doinng better, will switch Solu Medrol to prednisone and cont nebs, no evidence of infection (2) Pleuritic chest pain Comment: after a fall. Rib films show multiple aold rib fx on left. troponin had been neg. CP resolved (3) Elevated lactic acid level Comment: Type B lactic acidosis due to starvation ketosis and dehydration in combination to pt with liver disease BMP much improved today (4) Alcoholic liver disease Comment: with mild LFT's elevation (5) Hypomagnesemia Comment: replacing PO/IV (6) Alcoholism Comment: - Long-term hx of ETOH abuse; hx of seizures. - continue thiamine, folic acid and mvi - [facility] protocol cont (7) Peripheral arterial occlusive disease Comment: h/o carotid endarterectomy. Pt was noted to have low BP on left arm rylee due to PAD, arterial dopplers ordered (8) DVT prophylaxis Comment: lovenox Status and Disposition: inpatient, cont PT/OT refuses STR
[2018-05-05] MEDS: Acetaminophen TAB* 325 MG PO PRN (20:48)
[2018-05-05] MEDS: Cholecalciferol TAB* 1000 UNITS PO SCH (20:48)
[2018-05-05] MEDS: Nicotine Patch Removal NOTE PATCH OFF SCH (20:55)
[2018-05-05] MEDS: QUEtiapine TAB* 25 MG PO SCH (21:56)
[2018-05-06] MEDS: LORazepam TAB(*) 1 MG PO PRN ×4 (01:14→22:04)
[2018-05-06] MEDS: Albuterol/Ipratropium NEB.SOL* Albuterol 2.5 MG/Ipratropium 0.5 MG 3 ML INH SCH ×4 (02:26→20:29)
[2018-05-06] MEDS: Enoxaparin(*) 40 MG/0.4 ML SYR SUBCUT SCH (03:55)
[2018-05-06 07:04] LABS: Hematocrit 34 % (35-47); Hemoglobin 11.7 g/dl (12.0-16.0); Mean Corpuscular HGB Conc 35 g/dl (31-36); Mean Corpuscular Hemoglobin 39 pg (27-31); Mean Corpuscular Volume 113 fL (80-97); Red Blood Count 2.97 10^6/ul (4.00-5.40); Red Cell Distribution Width 15 % (10.5-15); White Blood Count 4.1 10^3/ul (3.5-10.8)
[2018-05-06 07:12] LABS: Albumin 3.3 g/dL (3.2-5.2); Albumin/Globulin Ratio 1.7 (1-3); BUN/Creatinine Ratio 15.6 (8-20); Calcium 8.2 mg/dL (8.6-10.3); EGFR African American 249.2 (>60); Globulin 1.9 g/dL (2-4); Magnesium 1.5 mg/dL (1.9-2.7); Phosphorus 2.1 mg/dL (2.5-5.0); Potassium 3.2 mmol/L (3.5-5.0); Total Bilirubin 2.3 mg/dL (0.2-1.0); Total Protein 5.2 g/dL (6.4-8.9)
[2018-05-06] MEDS: Mometasone/Formoter 200/5 MDI INH SCH ×2 (07:33→20:28)
[2018-05-06] MEDS: Nicotine GUM* 2 MG PO PRN ×4 (07:58→20:29)
[2018-05-06] MEDS: Cholecalciferol TAB* 1000 UNITS PO SCH (07:59)
[2018-05-06] MEDS: Acetaminophen TAB* 325 MG PO PRN ×2 (07:59→22:09)
[2018-05-06] MEDS: Potassium Acid Phosphate TAB* 500 MG PO SCH ×3 (07:59→22:16)
[2018-05-06] MEDS: Folic Acid TAB* 1 MG PO SCH (08:00)
[2018-05-06] MEDS: Thiamine TAB* 100 MG TAB PO SCH (08:00)
[2018-05-06] MEDS: Multivitamins/Minerals TAB PO SCH (08:00)
[2018-05-06] MEDS: Pantoprazole TAB * 40 MG TAB PO SCH (08:00)
[2018-05-06] MEDS: Nicotine PATCH 21 MG/24 HR* PATCH TRANSDERM SCH (08:01)
[2018-05-06] MEDS: Potassium Chlor TAB* 20 MEQ TAB.ER PO SCH (08:01)
[2018-05-06] MEDS: Magnesium Oxide TAB* 400 MG PO SCH ×2 (08:01→20:29)
[2018-05-06 08:29] LABS: ABS Basophils 0 10^3/ul (0-0.2); ABS Eosinophils 0 10^3/ul (0-0.6); ABS Lymphocytes 0.8 10^3/ul (1.0-4.8); ABS Monocytes 0.2 10^3/ul (0-0.8); ABS Neutrophils 2.9 10^3/ul (1.5-7.7); ABS Nucleated RBC 0 10^3/ul; Eosinophil % 0.4 %; Lymphocyte % 20.6 %; Mean Platelet Volume 8.6 fL (7.4-10.4); Nucleated Red Blood Cells % 0.4; Platelet Count 64 10^3/ul (150-450)
[2018-05-06] MEDS ORDERED: predniSONE TAB* 50 MG PO SCH (09:00)
[2018-05-06] MEDS ORDERED: Magnesium Sulf 4 GM/100 ML IV* 4,000 MG/100 ML BAG IVPB ONE (09:15)
[2018-05-06] MEDS ORDERED: Potassium Chlor TAB* 20 MEQ TAB.ER PO ONE (09:16)
[2018-05-06 10:30] LABS: Folate 13.72 ng/mL (>3.99)
--- NOTE | 2018-05-06 17:56 | PN ---
Subjective Date of Service: 05/06/18 Interval History: Pt feels much better. Legs are less swollen. she ambulates with a cane. appetite good Objective Active Medications: Acetaminophen (Tylenol Tab*) 650 mg PO Q4H PRN PRN Reason: PAIN Last Admin: 05/06/18 07:59 Dose: 650 mg Albuterol (Ventolin 2.5 Mg/3 Ml Neb.Barbara*) 2.5 mg INH Q2H PRN PRN Reason: SOB/WHEEZING Albuterol/Ipratropium (Duoneb (Albuterol 2.5 Mg/Ipratropium 0.5 Mg)) 1 neb INH [id number] AWAKE [facility] Last Admin: 05/06/18 13:57 Dose: 1 neb Cholecalciferol (Vitamin D Tab*) 2,000 units PO DAILY [facility] Last Admin: 05/06/18 07:59 Dose: 2,000 units Enoxaparin Sodium (Lovenox(*)) 40 mg SUBCUT Q24H [facility] Last Admin: 05/06/18 03:55 Dose: 40 mg Folic Acid (Folvite Tab*) 1 mg PO DAILY [facility] Last Admin: 05/06/18 08:00 Dose: 1 mg Lorazepam (Ativan Tab(*)) 1 mg PO Q4H PRN PRN Reason: ANXIETY Last Admin: 05/06/18 14:38 Dose: 1 mg Magnesium Oxide (Magox 400 Tab*) 800 mg PO BID [facility] Mometasone Furoate/Formoterol Fumar (Dulera 200/5 Mdi*) 2 puff INH BID [facility] Last Admin: 05/06/18 07:33 Dose: 2 puff Multivitamins/Minerals (Theragran/Minerals Tab*) 1 tab PO DAILY [facility] Last Admin: 05/06/18 08:00 Dose: 1 tab Nicotine (Nicotine Patch 21 Mg/24 Hr*) 1 patch TRANSDERM DAILY [facility] Last Admin: 05/06/18 08:01 Dose: Not Given Nicotine Polacrilex (Nicotine Gum*) 2 mg PO Q2H PRN PRN Reason: CRAVING Last Admin: 05/06/18 14:38 Dose: 2 mg Pantoprazole Sodium (Protonix Tab*) 40 mg PO DAILY [facility] Last Admin: 05/06/18 08:00 Dose: 40 mg Pharmacy Profile Note (Nicotine Patch Removal Note*) 1 note PATCH OFF 2100 [facility] Last Admin: 05/05/18 20:55 Dose: 1 note Potassium Chloride (Klor Con Er Tab*) 20 meq PO DAILY [facility] Last Admin: 05/06/18 08:01 Dose: 20 meq Potassium Phosphate (K Phos Original Tab*) 500 mg PO TID [facility] Stop: 05/06/18 23:59 Last Admin: 05/06/18 14:37 Dose: 500 mg Prednisone (Deltasone Tab*) 50 mg PO DAILY [facility] Last Admin: 05/06/18 08:01 Dose: 50 mg Quetiapine Fumarate (Seroquel Tab*) 50 mg PO BEDTIME [facility] Last Admin: 05/05/18 21:56 Dose: 50 mg Thiamine HCl (Vitamin B-1 Tab*) 100 mg PO DAILY [facility] Last Admin: 05/06/18 08:00 Dose: 100 mg Vital Signs - 8 hr 05/06/18 05/06/18 13:59 14:38 Pulse Rate 101 Respiratory 16 16 Rate O2 Sat by Pulse 97 Oximetry Oxygen Devices in Use Now: Nasal Cannula Appearance: 68 yo F in nAD, aAOx3 Eyes: No Scleral Icterus, PERRLA Ears/Nose/Mouth/Throat: NL Teeth, Lips, Gums, Mucous Membranes Moist Neck: NL Appearance and Movements; NL JVP, Trachea Midline Respiratory: Symmetrical Chest Expansion and Respiratory Effort Cardiovascular: NL Sounds; No Murmurs; No JVD, RRR Abdominal: NL Sounds; No Tenderness; No Distention, No Hepatosplenomegaly Lymphatic: No Cervical Adenopathy Extremities: No Clubbing, Cyanosis, - - +1 pitting edema b/l Skin: - - R arm bony deformity due to chronic humerus fx. Neurological: Alert and Oriented x 3, NL Muscle Strength and Tone Result Diagrams: 05/06/18 06:45 05/06/18 06:45 Microbiology and Other Data: Microbiology 05/03/18 23:00 Influenza Types A,B Antigen - Final Nasopharyngeal Specimen received for Influenza A/B Molecular testing Assess/Plan/Problems-Billing Assessment: Ms. Bland is a 68 yo female with a past medical history significant for alcohol abuse, seizures and COPD who had been falling at home presented with CPD exacerbation and ETOH>300 - Patient Problems (1) COPD exacerbation Comment: cont prednisone (will taper down the dose)and cont nebs, no evidence of infection (2) Pleuritic chest pain Comment: after a fall. Rib films show multiple old rib fx on left. troponin had been neg. CP resolved (3) Elevated lactic acid level Comment: Type B lactic acidosis due to starvation ketosis and dehydration in combination to pt with liver disease BMP much improved with IVF (4) Alcoholic liver disease Comment: with mild LFT's elevation (5) Alcoholism Comment: - Long-term hx of ETOH abuse; hx of seizures. - continue thiamine, folic acid and mvi - [facility] protocol cont (6) Peripheral arterial occlusive disease Comment: h/o carotid endarterectomy. Pt was noted to have low BP on left arm due to left subclavian stenosis (7) Refeeding syndrome Comment: type B lactic acidosis, hypophosphatemia, hypomagnesemia consistent with refeeding syndrome. cont electrolyte replacement (8) DVT prophylaxis Comment: lovenox Status and Disposition: inpatient. suspect if lytes are improved, pt may be able to go home tomorrow
[2018-05-06] MEDS ORDERED: Potassium Phosphate IV* 10 MMOLE in NS 0.9% 250 ML* 250 ML IVPB ONE (19:19)
[2018-05-06] MEDS: QUEtiapine TAB* 25 MG PO SCH (22:04)
[2018-05-06] MEDS: Nicotine Patch Removal NOTE PATCH OFF SCH (22:16)
[2018-05-07] MEDS: Albuterol/Ipratropium NEB.SOL* Albuterol 2.5 MG/Ipratropium 0.5 MG 3 ML INH SCH ×3 (00:47→12:57)
[2018-05-07] MEDS: Enoxaparin(*) 40 MG/0.4 ML SYR SUBCUT SCH (04:44)
[2018-05-07] MEDS: Mometasone/Formoter 200/5 MDI INH SCH (08:19)
[2018-05-07 08:35] VITALS: BP 172/78
[2018-05-07] MEDS: Multivitamins/Minerals TAB PO SCH (08:35)
[2018-05-07] MEDS: Nicotine GUM* 2 MG PO PRN (08:35)
[2018-05-07] MEDS: LORazepam TAB(*) 1 MG PO PRN (08:35)
[2018-05-07] MEDS: Cholecalciferol TAB* 1000 UNITS PO SCH (08:36)
[2018-05-07] MEDS: Potassium Chlor TAB* 20 MEQ TAB.ER PO SCH (08:36)
[2018-05-07] MEDS: Pantoprazole TAB * 40 MG TAB PO SCH (08:37)
[2018-05-07] MEDS: Folic Acid TAB* 1 MG PO SCH (08:37)
[2018-05-07] MEDS: Acetaminophen TAB* 325 MG PO PRN (08:37)
[2018-05-07] MEDS: Thiamine TAB* 100 MG TAB PO SCH (08:37)
[2018-05-07] MEDS: Magnesium Oxide TAB* 400 MG PO SCH (08:37)
[2018-05-07] MEDS: Nicotine PATCH 21 MG/24 HR* PATCH TRANSDERM SCH (08:40)
[2018-05-07] MEDS ORDERED: predniSONE TAB* 20 MG PO SCH (09:00)
--- NOTE | 2018-05-07 10:34 | PN ---
Progress Note - Progress Note Date of Service: 05/07/18 Note: Time spent on discharge including exam of patient, discussion with patient, nurse, CM, review of EMR and preparation of discharge documents is 40 minutes.
--- NOTE | 2018-05-07 12:06 | DS ---
CC: Dorcas Chan NP DISCHARGE SUMMARY: DATE OF ADMISSION: 05/04/18 DATE OF DISCHARGE: 05/07/18 HISTORY: This 68-year-old woman presented with chest pain. She also was markedly intoxicated with a lcohol. Troponins were all normal. X-rays showed multiple old left rib fractures. Alcohol level wa s 378. The patient was treated for COPD exacerbation. She did well in the hospital. She had significantly elevated lactate, most likely due to her chronic alcoholic liver disease. She continued to have low magnesium and potassium levels despite supplementation; however, these were not dangerously low. If she continues to eat normally, abstains from alcohol, and takes her prescribed medication, I think chapo arita will do well; however, it is not clear that if she will follow up with this program. FINAL DIAGNOSES: 1. Chronic obstructive pulmonary disease exacerbation. 2. Pleuritic chest pain. 3. Alcoholic liver disease. 4. Chronic alcoholism. 5. Tobacco use disorder. 6. Multiple electrolyte abnormalities. DISCHARGE MEDICATIONS: 1. Prednisone 10 mg, taper from 3 to 0 over 3 days. 2. Acetaminophen 650 mg every 4 hours p.r.n. 3. Vitamin D 1000 units daily. 4. Nicotine gum 2 mg every 2 hours p.r.n. 5. Thiamine 100 mg daily. 6. Lorazepam 1 mg 0.5 to 1 tablet b.i.d. p.r.n. 7. Potassium chloride 20 mEq daily. 8. Tiotropium 1 capsule daily. 9. Quetiapine as prescribed. 10. Multivitamin with mineral daily. 11. Albuterol inhaler every 4 hours p.r.n. 12. Mometasone/formoterol 200/5 two puffs b.i.d. 13. Folic acid 1 mg daily. 14. Omeprazole 20 mg daily. 15. Magnesium oxide 800 mg daily. CONDITION ON DISCHARGE: Improved. DISPOSITION ON DISCHARGE: Discharged to home. INSTRUCTIONS: The patient will have a BMP and magnesium level within 1 week of discharge. [id number]/[facility] #: [id number]
[2018-05-07] MEDS ORDERED: Potassium Chlor TAB* 20 MEQ TAB.ER PO SCH (14:00)
[2018-05-08] MEDS ORDERED: predniSONE TAB* 20 MG PO SCH (09:00)
== END 2018-05-07 12:30 | disposition home health service (06) | DRG 191 ==
LOC: ED 21:46 → MEDTELE 05-04 03:25
PROVIDERS: ADMIT Student in an Organized Health Care Education/Training Program; ATTEND Internal Medicine
DX: J44.1 Chronic obstructive pulmonary disease with (acute) exacerbation (principal); S22.42XA Multiple fractures of ribs, left side, initial encounter for closed fracture; E87.2 Acidosis; E87.3 Alkalosis; F10.229 Alcohol dependence with intoxication, unspecified; Y90.8 Blood alcohol level of 240 mg/100 ml or more; K70.9 Alcoholic liver disease, unspecified; F32.9 Major depressive disorder, single episode, unspecified; G40.909 Epilepsy, unspecified, not intractable, without status epilepticus; I10 Essential (primary) hypertension; M81.0 Age-related osteoporosis without current pathological fracture; M19.90 Unspecified osteoarthritis, unspecified site; H43.399 Other vitreous opacities, unspecified eye; F41.0 Panic disorder [episodic paroxysmal anxiety]; F43.10 Post-traumatic stress disorder, unspecified; I95.9 Hypotension, unspecified; H26.9 Unspecified cataract; E87.6 Hypokalemia; F17.210 Nicotine dependence, cigarettes, uncomplicated; E83.42 Hypomagnesemia; E86.0 Dehydration; I70.8 Atherosclerosis of other arteries; W19.XXXA Unspecified fall, initial encounter; E83.39 Other disorders of phosphorus metabolism; E88.89 Other specified metabolic disorders; I25.10 Atherosclerotic heart disease of native coronary artery without angina pectoris; I73.9 Peripheral vascular disease, unspecified; K21.9 Gastro-esophageal reflux disease without esophagitis; K58.9 Irritable bowel syndrome, unspecified; Z87.440 Personal history of urinary (tract) infections; Z88.1 Allergy status to other antibiotic agents; Z91.5 Personal history of self-harm; Z88.6 Allergy status to analgesic agent; Z88.8 Allergy status to other drugs, medicaments and biological substances; Z30.2 Encounter for sterilization; Z82.49 Family history of ischemic heart disease and other diseases of the circulatory system; Y92.9 Unspecified place or not applicable
CPT/HCPCS: 36415; 36600; 71045; 71110; 80048; 80053; 80307; 80320; 81003; 82550; 82607; 82746; 82803; 83605; 83735; 83880; 84100; 84484; 85025; 85027; 85379; 85610; 85730; 86140; 87040; 93005; 94640; 99285; A9270-GY; G0480; G8978-GP-CI; G8978-GP-CL; G8979-GP-CI; G8979-GP-CJ; G8980-GP-CI; G8987-GO-CI; G8988-GO-CI; J1650; J2920; J2930; J3411; J3475; J3480; J7512

== ENCOUNTER 2018-05-25 20:15 | Emergency (ER) | payer MEDICARE, MEDICAID ==
[2018-05-25] MEDS ORDERED: LORazepam TAB(*) 1 MG PO ONE (21:45)
--- NOTE | 2018-05-25 22:31 | ED ---
Head Injury - HPI Summary HPI Summary: The patient is a 68 y/o F presenting to [facility] with a chief complaint of falling tonight, causing her to hit her head leaving a laceration over the left eye. She also notes that her right arm hurts. She was brought in by ambulance, which she reports came because of her alarm going off. The pain is currently rated 2/ 10 in severity. She denies fever, chills, erythema of eyes, sore throat, CP, SOB, cough, abdominal pain, N/V, dysuria, hematuria, myalgia, edema, rash, or dizziness. She also reports that she was drinking earlier today. - History Of Current Complaint Chief Complaint: EDFall Stated Complaint: FALL WITH LAC PER EMS Time Seen by Provider: 05/25/18 20:37 Hx Obtained From: Patient Mechanism Of Injury: Fall From A Standing Position Onset/Duration: Started Hours Ago, Still Present Onset of Pain: Immediate Severity Currently: Moderate Severity Initially: Moderate Pain Intensity: 2 Pain Scale Used: 0-10 Numeric Location of Head Injury: Temporal - left Character: Dull Aggravating Factor(s): Other: - none Alleviating Factor(s): Other: - none Associated Signs And Symptoms: Other: - laceration to left temporal after fall - Allergies/Home Medications Allergies/Adverse Reactions: Allergies Allergy/AdvReac Type Severity Reaction Status Date / Time doxycycline Allergy Intermediate Swelling Verified 05/25/18 20:51 gabapentin Allergy Intermediate Swelling Verified 05/25/18 20:51 prednisone AdvReac made Verified 05/25/18 20:51 patient feel "wired" PMH/Surg Hx/FS Hx/Imm Hx Endocrine/Hematology History: Reports: Hx Anemia - macrocytic anemia Denies: Hx Anticoagulant Therapy, Hx Blood Disorders, Hx Blood Transfusions, Hx Bone Marrow Disease, Hx Diabetes, Hx Systemic Lupus Erythematosus, Hx Sickle Cell Disease, Hx Thyroid Disease, Hx Unexplained Bleeding, Other Endocrine/ Hematological Disorders Cardiovascular History: Reports: Hx Angina, Hx Coronary Artery Disease - left carotid artery surgery, Hx Hypercholesterolemia, Hx Hypertension, Other Cardiovascular Problems/Disorders - carotid endarterectomy, peripheral arterial occlusive disease Denies: Hx Aneurysm, Hx Angioplasty, Hx Auto Implanted Cardiovert Defib, Hx Cardiac Arrest, Hx Cardiomegaly, Hx Congenital Heart Disease, Hx Congestive Heart Failure, Hx Deep Vein Thrombosis, Hx Embolism, Hx Hypotension, Hx Pacemaker/ICD, Hx Peripheral Vascular Disease, Hx Rheumatic Fever, Hx Syncope, Hx Valvular Heart Disease Respiratory History: Reports: Hx Chronic Bronchitis, Hx Chronic Obstructive Pulmonary Disease (COPD), Hx Pneumonia, Other Respiratory Problems/Disorders - SMOKER Denies: Hx Asthma, Hx Cystic Fibrosis, Hx Lung Cancer, Hx Pleural Effusion, Hx Pulmonary Edema, Hx Pulmonary Embolism, Hx Seasonal Allergies, Hx Sleep Apnea GI History: Reports: Hx Gastroesophageal Reflux Disease - prn, Hx Irritable Bowel, Hx Ulcer, Other GI Disorders - adhesions, IBS Denies: Hx Cirrhosis, Hx Crohn's Disease, Hx Diverticulosis, Hx Gall Bladder Disease, Hx Gastrointestinal Bleed, Hx Hiatal Hernia, Hx Jaundice, Hx Obstructive Bowel, Hx Ileostomy, Hx Pyloric Stenosis History: Reports: Other Problems/Disorders - hx of UTI Denies: Hx Acute Renal Failure, Hx Benign Prostatic Hyperplasia, Hx Chronic Renal Failure, Hx Dialysis, Hx Kidney Infection, Hx Kidney Stones, Hx Renal Disease Musculoskeletal History: Reports: Hx Arthritis - osteo arthritis, osteoporosis, Hx Orthopedic Injury - broken fingers, Other Musculoskeletal History - Past injury to R hand. Denies: Hx Back Problems, Hx Bursitis, Hx Congenital Bone Abnormalities, Hx Fibromyalgia, Hx Gout, Hx Osteoporosis, Hx Scoliosis, Hx Tendonitis Sensory History: Reports: Hx Cataracts - both, Hx Contacts or Glasses, Hx Vision Problem, Other Sensory Impairments - floaters Denies: Hx Eye Injury, Hx Eye Prosthesis, Hx Glaucoma, Hx Macular Degeneration, Hx Deafness, Hx Hearing Aid, Hx Hearing Problem Opthamlomology History: Reports: Hx Cataracts - both, Hx Contacts or Glasses, Hx Vision Problem, Other Sensory Impairments - floaters Denies: Hx Eye Injury, Hx Eye Prosthesis, Hx Glaucoma, Hx Macular Degeneration Neurological History: Reports: Hx Headaches - rarely, Hx Seizures - x1 6 years ago at [facility] [place]- none since Denies: Hx Dementia, Hx Developmental Delay, Hx Migraine, Hx Spinal Cord Injury, Hx Transient Ischemic Attacks (TIA), Other Neuro Impairments/Disorders Psychiatric History: Reports: Hx Anxiety - PTSD, Hx Depression - depressive disorder, Hx Panic Disorder - PTSD, Hx Post Traumatic Stress Disorder, Hx Inpatient Treatment, Hx Community Mental Health Tx, Hx Suicide Attempt, Hx Substance Abuse, Other Psychiatric Issues/Disorders Denies: Hx Attention Deficit Hyperactivity Disorder, Hx Eating Disorder, Hx Schizophrenia, Hx Bipolar Disorder, Hx of Violent Episodes Against Others - Surgical History Surgery Procedure, Year, and Place: TONSILECTOMY ; APPENDECTOMY; X2 ; TUBAL LIGATION; CAROTID ENDERECTOMY (NO STENTINGS) Hx Anesthesia Reactions: Yes - ETHER CAUSED VOMITING - Immunization History Date of Tetanus Vaccine: PT STATES UNSURE Date of Influenza Vaccine: NONE Infectious Disease History: No Infectious Disease History: Denies: Hx Clostridium Difficile, Hx Hepatitis, Hx Human Immunodeficiency Virus (HIV), Hx Shingles, Hx Tuberculosis, Traveled Outside the [place] in Last 30 Days - Family History Known Family History: Positive: Cardiac Disease - Father, Other - father - colon ca, h/o ETOH abuse; mom- alzheimer's dz - Social History Alcohol Use: Daily Alcohol Amount: varies, per pt on average 4 beers Hx Substance Use: No Substance Use Type: Reports: None Substance Use Comment - Amount & Last Used: pt aware of mental & physical risks of etoh, not willing/ready to change Hx Tobacco Use: Yes Smoking Status (MU): Light Every Day Tobacco Smoker Type: Cigarettes Amount Used/How Often: 1ppd, smoked for 40 years, did not smoke during pregnancies, stopped for 6 Have You Smoked in the Last Year: Yes Review of Systems Negative: Fever, Chills Negative: Erythema Negative: Sore Throat Negative: Chest Pain Negative: Shortness Of Breath, Cough Negative: Abdominal Pain, Vomiting, Nausea Negative: dysuria, hematuria Positive: Other - pain in right arm. Negative: Myalgia, Edema Positive: Other - laceration to left temporal. Negative: Rash Neurological: Other - POSITIVE: fall causing laceration; NEGATIVE: dizziness All Other Systems Reviewed And Are Negative: Yes Physical Exam - Summary Physical Exam Summary: Constitutional: Well-developed, Well-nourished, Alert. (-) Distressed, verab Skin: Warm, Dry HENT: Normocephalic; Left temporal 3mm stellate laceration Eyes: Conjunctiva normal Neck: Musculoskeletal ROM normal neck. (-) JVD, (-) Stridor, (-) Tracheal deviation Cardio: Rhythm regular, rate normal, Heart sounds normal; Intact distal pulses; The pedal pulses are 2+ and symmetric. Radial pulses are 2+ and symmetric. (-) Murmur Pulmonary/Chest wall: Effort normal. (-) Respiratory distress, (-) Wheezes, (-) Rales Abd: Soft, (-) tenderness, (-) Distension, (-) Guarding, (-) Rebound Musculoskeletal: (-) Edema Lymph: (-) Cervical adenopathy Neuro: Alert, Oriented x3, GCS: 15 Psych: Verbally combative but otherwise mood and affect Normal, speech is slurred Triage Information Reviewed: Yes Vital Signs On Initial Exam: Initial Vitals Temp Pulse Resp BP Pulse Ox 96.7 F 78 14 106/79 97 05/25/18 20:26 05/25/18 20:26 05/25/18 20:26 05/25/18 20:26 05/25/18 20:26 Vital Signs Reviewed: Yes - Elmer Coma Scale Best Eye Response: 4 - Spontaneous Best Motor Response: 6 - Obeys Commands Best Verbal Response: 5 - Oriented Coma Scale Total: 15 Procedures - Laceration/Wound Repair 1 Location: face - left temporal Description: Stellate Length, Depth and Shape: 3mm Laceration/Wound Explored: clean, Other - Cleansed with saline and gauze Closure: Skin Adhesive Diagnostics - Vital Signs Vital Signs Temp Pulse Resp BP Pulse Ox 05/25/18 20:26 96.7 F 78 14 106/79 97 - Laboratory Lab Statement: Any lab studies that have been ordered have been reviewed, and results considered in the medical decision making process. - CT Brain CT CT Interpretation Completed By: Radiologist Summary of CT Findings: 1. No traumatic intracranial abnormalities. 2. Age- related atrophy and mild chronic small vessel ischemic disease. ED physician has reviewed this report. Cervical Spine CT CT Interpretation Completed By: Radiologist Summary of CT Findings: 1. No cervical spine traumatic abnormalities. 2. Mild multilevel cervical spondylopathy. ED physician has reviewed this report. Head Injury Course/Dx Course Of Treatment: The patient is a 68 y/o F brought in by ambulance with a chief complaint of falling tonight, causing her to hit her head leaving a laceration over the left eye and pain in the right arm. Upon physical exam, the patient exhibits a left temporal 3mm stellate laceration, verbal combativeness, and slurred speech. In the ED course, the patient was given Ativan and Nicotine gum. Laceration repair to the 3mm stellate laceration in the left temporal; cleansed with saline and gauze and closed with skin adhesive. Brain CT reveals no abnormalities. Cervical Spine CT is also negative. She is diagnosed with facial laceration, fall, and alcohol EtOH. Patient is a sign-out to Dr. Tyrel Bradford MD, from Dr. Gwyn Escalante MD, at change of shift at 22:00 pending sobriety and disposition. - Diagnoses Provider Diagnoses: Alcohol intoxication Discharge - Sign-Out/Discharge Documenting (check all that apply): Sign-Out Patient Signing out patient TO: Tyrel Bradford - Patient is a sign-out to Dr. Tyrel Bradford MD, from Dr. Gwyn Escalante MD, at change of shift at 22:00 pending sobriety and disposition. Patient Received Moderate/Deep Sedation with Procedure: No - Discharge Plan Condition: Stable Disposition: HOME Patient Education Materials: Moderate Sedation (ED) Referrals: Dorcas Chan GERMINATION WORKER [Primary Care Provider] - Additional Instructions: Please follow up with your primary care provider in 2-3 days. Return to the emergency department with any new or worsening symptoms. - Billing Disposition and Condition Condition: STABLE Disposition: Home - Attestation Statements Document Initiated by Scribe: Yes Documenting Scribe: Jamila Rosa Provider For Whom Nasreen is Documenting (Include Credential): Dr. Gwyn Escalante MD Scribe Attestation: Jamila Juárez scribed for Dr. Gwyn Escalante MD on 05/26/18 at 1101. Scribe Documentation Reviewed: Yes Provider Attestation: The documentation as recorded by the Jamila juan accurately reflects the service I personally performed and the decisions made by me, Dr. Gwyn Escalante MD Status of Scribe Document: Viewed
[2018-05-25] MEDS: Nicotine GUM* 2 MG PO PRN (23:05)
--- NOTE | 2018-05-25 23:06 | ED ---
Progress - Progress Note Progress Note: Pt is a signout from Dr. Escalante to Dr. Bradford pending sobriety and disposition. Course/Dx - Course Course Of Treatment: The pt is a signout from Dr. Escalante to Dr. Bradford pending sobriety and disposition. As of 538, the pt is awake, alert, and oriented x3. The pt will be sent home with a dx of EtOH intoxication, and she is agreeable with this plan. - Diagnoses Provider Diagnoses: Alcohol intoxication Discharge - Sign-Out/Discharge Documenting (check all that apply): Patient Departure, Receiving Sign-Out Receiving patient FROM: Gwyn Escalante Patient Received Moderate/Deep Sedation with Procedure: Yes - Discharge Plan Condition: Stable Disposition: HOME Patient Education Materials: Moderate Sedation (ED) Referrals: Dorcas Chan UTILITY BILL COMPLAINTS INVESTIGATOR [Primary Care Provider] - Additional Instructions: Please follow up with your primary care provider in 2-3 days. Return to the emergency department with any new or worsening symptoms. - Attestation Statements Document Initiated by Scribe: Yes Documenting Scribe: Selene Washington Provider For Whom Nasreen is Documenting (Include Credential): Tyrel Bradford MD. Scribe Attestation: Selene Juárez, theoed for Tyrel Bradford MD. on 05/26/18 at 0539. Status of Scribe Document: Ready
[2018-05-26] MEDS: Nicotine GUM* 2 MG PO PRN (05:46)
[2018-05-26 06:04] VITALS: BP 117/82
== END 2018-05-26 06:04 | disposition home or self-care (01) ==
LOC: ED 20:15
DX: F10.129 Alcohol abuse with intoxication, unspecified (principal); S01.01XA Laceration without foreign body of scalp, initial encounter; I25.10 Atherosclerotic heart disease of native coronary artery without angina pectoris; M79.601 Pain in right arm; I10 Essential (primary) hypertension; J44.9 Chronic obstructive pulmonary disease, unspecified; K21.9 Gastro-esophageal reflux disease without esophagitis; D64.9 Anemia, unspecified; F17.210 Nicotine dependence, cigarettes, uncomplicated; W19.XXXA Unspecified fall, initial encounter; Y92.9 Unspecified place or not applicable; F43.10 Post-traumatic stress disorder, unspecified
CPT/HCPCS: 36415; 70450; 72125; 80320; 99283; A9270-GY; G0480

== ENCOUNTER 2018-06-17 21:09 | Emergency (ER) | payer MEDICARE, MEDICAID ==
--- NOTE | 2018-06-17 21:22 | ED ---
Substance Abuse/Use - HPI Summary HPI Summary: Patient is a 68 y/o F presenting to ED via EMS due to fall out of bed and alcohol intoxication. EMS reports that the patient had hit her medical life alert button, EMS responded. Upon arrival to patient's residence, they found the patient on the floor and clearly intoxicated. They returned the patient to bed but she repeatedly attempted to roll out of her bed. Patient was subsequently transported to ED. Level 5 caveat, alcohol intoxication. Home medications and allergies are reviewed. - History Of Current Complaint Chief Complaint: EDSubstanceAbuse Stated Complaint: FALL PER EMS Time Seen by Provider: 06/17/18 21:15 Hx Obtained From: EMS Hx From Patient Unobtainable Due To: Altered Mental Status - alcohol intoxication Ingestion History: Type/Name Of Drug - alcohol Overdose Characteristics: Oral Aggravating Factor(s): Nothing Alleviating Factor(s): Nothing Associated Signs And Symptoms: Other: - fall out of bed - Allergies/Home Medications Allergies/Adverse Reactions: Allergies Allergy/AdvReac Type Severity Reaction Status Date / Time doxycycline Allergy Intermediate Swelling Verified 06/17/18 21:43 gabapentin Allergy Intermediate Swelling Verified 06/17/18 21:43 prednisone AdvReac made Verified 06/17/18 21:43 patient feel "wired" PMH/Surg Hx/FS Hx/Imm Hx Endocrine/Hematology History: Reports: Hx Anemia - macrocytic anemia Denies: Hx Anticoagulant Therapy, Hx Blood Disorders, Hx Blood Transfusions, Hx Bone Marrow Disease, Hx Diabetes, Hx Systemic Lupus Erythematosus, Hx Sickle Cell Disease, Hx Thyroid Disease, Hx Unexplained Bleeding, Other Endocrine/ Hematological Disorders Cardiovascular History: Reports: Hx Angina, Hx Coronary Artery Disease - left carotid artery surgery, Hx Hypercholesterolemia, Hx Hypertension, Other Cardiovascular Problems/Disorders - carotid endarterectomy, peripheral arterial occlusive disease Denies: Hx Aneurysm, Hx Angioplasty, Hx Auto Implanted Cardiovert Defib, Hx Cardiac Arrest, Hx Cardiomegaly, Hx Congenital Heart Disease, Hx Congestive Heart Failure, Hx Deep Vein Thrombosis, Hx Embolism, Hx Hypotension, Hx Pacemaker/ICD, Hx Peripheral Vascular Disease, Hx Rheumatic Fever, Hx Syncope, Hx Valvular Heart Disease Respiratory History: Reports: Hx Chronic Bronchitis, Hx Chronic Obstructive Pulmonary Disease (COPD), Hx Pneumonia, Other Respiratory Problems/Disorders - SMOKER Denies: Hx Asthma, Hx Cystic Fibrosis, Hx Lung Cancer, Hx Pleural Effusion, Hx Pulmonary Edema, Hx Pulmonary Embolism, Hx Seasonal Allergies, Hx Sleep Apnea GI History: Reports: Hx Gastroesophageal Reflux Disease - prn, Hx Irritable Bowel, Hx Ulcer, Other GI Disorders - adhesions Denies: Hx Cirrhosis, Hx Crohn's Disease, Hx Diverticulosis, Hx Gall Bladder Disease, Hx Gastrointestinal Bleed, Hx Hiatal Hernia, Hx Jaundice, Hx Obstructive Bowel, Hx Ileostomy, Hx Pyloric Stenosis History: Reports: Other Problems/Disorders - hx of UTI Denies: Hx Acute Renal Failure, Hx Benign Prostatic Hyperplasia, Hx Chronic Renal Failure, Hx Dialysis, Hx Kidney Infection, Hx Kidney Stones, Hx Renal Disease Musculoskeletal History: Reports: Hx Arthritis - osteo arthritis, osteoporosis, Hx Orthopedic Injury - broken fingers, Other Musculoskeletal History - Past injury to R hand, herniated disks Denies: Hx Back Problems, Hx Bursitis, Hx Congenital Bone Abnormalities, Hx Fibromyalgia, Hx Gout, Hx Osteoporosis, Hx Scoliosis, Hx Tendonitis Sensory History: Reports: Hx Cataracts - both, Hx Contacts or Glasses, Hx Vision Problem, Other Sensory Impairments - floaters Denies: Hx Eye Injury, Hx Eye Prosthesis, Hx Glaucoma, Hx Macular Degeneration, Hx Deafness, Hx Hearing Aid, Hx Hearing Problem Opthamlomology History: Reports: Hx Cataracts - both, Hx Contacts or Glasses, Hx Vision Problem, Other Sensory Impairments - floaters Denies: Hx Eye Injury, Hx Eye Prosthesis, Hx Glaucoma, Hx Macular Degeneration Neurological History: Reports: Hx Headaches - rarely, Hx Seizures - x1 6 years ago at [facility] [place]- none since, Hx Spinal Cord Injury - Herniated disks, Other Neuro Impairments/Disorders - multiple concussions Denies: Hx Dementia, Hx Developmental Delay, Hx Migraine, Hx Transient Ischemic Attacks (TIA) Psychiatric History: Reports: Hx Anxiety - PTSD, Hx Depression - depressive disorder, Hx Panic Disorder - PTSD, Hx Post Traumatic Stress Disorder, Hx Inpatient Treatment, Hx Community Mental Health Tx, Hx Suicide Attempt, Hx Substance Abuse, Other Psychiatric Issues/Disorders Denies: Hx Attention Deficit Hyperactivity Disorder, Hx Eating Disorder, Hx Schizophrenia, Hx Bipolar Disorder, Hx of Violent Episodes Against Others - Surgical History Surgery Procedure, Year, and Place: TONSILECTOMY ; APPENDECTOMY; X2 ; TUBAL LIGATION; CAROTID ENDERECTOMY (NO STENTINGS) Hx Anesthesia Reactions: Yes - ETHER CAUSED VOMITING - Immunization History Date of Tetanus Vaccine: PT STATES UNSURE Date of Influenza Vaccine: NONE Infectious Disease History: Denies: Hx Clostridium Difficile, Hx Hepatitis, Hx Human Immunodeficiency Virus (HIV), Hx Shingles, Hx Tuberculosis - Family History Known Family History: Positive: Cardiac Disease - Father, Other - father - colon ca, h/o ETOH abuse; mom- alzheimer's dz - Social History Alcohol Use: Daily Alcohol Amount: 4 cans of beer daily Hx Substance Use: No Substance Use Type: Reports: None Substance Use Comment - Amount & Last Used: pt aware of mental & physical risks of etoh, not willing/ready to change Hx Tobacco Use: Yes Smoking Status (MU): Light Every Day Tobacco Smoker Type: Cigarettes Amount Used/How Often: 1ppd, smoked for 40 years, did not smoke during pregnancies, stopped for 6 Have You Smoked in the Last Year: Yes Review of Systems - ROS Summary Review of Systems Summary: LEVEL 5 CAVEAT, ALCOHOL INTOXICATION, AMS Constitutional: Other - POSITIVE - ALCOHOL INTOXICATION Negative: Fever Psychological: Other - POSITIVE - AMS All Other Systems Reviewed And Are Negative: No - Comments Additional Review of Systems Comments: LEVEL 5 CAVEAT, ALCOHOL INTOXICATION, AMS Physical Exam - Summary Physical Exam Summary: Appearance: Well-appearing, Well-nourished, lying in bed comfortable Skin: Warm, dry, no obvious rash Eyes: sclera anicteric, no conjunctival pallor ENT: mucous membranes moist Neck: deferred Respiratory: No signs of respiratory distress Cardiovascular: Appears well perfused, pulses are nml Abdomen: deferred Musculoskeletal: Moving all 4 extremities without obvious discomfort Neurological: Awake and alert, patient is intoxicated Psychiatric: affect is normal, does not appear anxious or depressed Triage Information Reviewed: Yes Vital Signs On Initial Exam: Initial Vitals Temp Pulse Resp BP Pulse Ox 97.1 F 90 18 100/51 95 06/17/18 21:26 06/17/18 21:26 06/17/18 21:26 06/17/18 21:26 06/17/18 21:26 Vital Signs Reviewed: Yes Diagnostics - Laboratory Result Diagrams: 06/17/18 21:31 06/17/18 21:31 Lab Statement: Any lab studies that have been ordered have been reviewed, and results considered in the medical decision making process. Course/Dx - Course Course Of Treatment: Patient is a 68 y/o F presenting to ED via EMS due to fall out of bed and alcohol intoxication. EMS reports that the patient had hit her medical life alert button, EMS responded. Upon arrival to patient's residence, they found the patient on the floor and clearly intoxicated. They returned the patient to bed but she repeatedly attempted to roll out of her bed. Patient was subsequently transported to ED. Level 5 caveat, alcohol intoxication. Labs showed RBC 3.04, MCV 119, MCH 41, Plt count 128, MPV 7.2, sodium 125, potassium 3, chloride 91, BUN 3, creatinine 0.32, calcium 8.5, AST 51, Alk Phos 116, total protein 5.9. UA was negative. Serum alcohol was 386. After patient had sobered up, patient will be discharged to home. - Diagnoses Provider Diagnoses: Alcohol intoxication Discharge - Sign-Out/Discharge Documenting (check all that apply): Patient Departure - discharge Patient Received Moderate/Deep Sedation with Procedure: No - Discharge Plan Condition: Stable Disposition: HOME Patient Education Materials: Alcohol Intoxication (ED) Referrals: [facility] [Outside] Dorcas Chan, LEAD BASED PAINT TECHNICIAN [Primary Care Provider] - - Attestation Statements Document Initiated by Scribe: Yes Documenting Scribe: RAMYA LOCKHART Provider For Whom Susanaibe is Documenting (Include Credential): NAGI HORTON MD Scribe Attestation: RAMYA Juárez, scribed for NAGI HORTON MD on 06/18/18 at 0659. Status of Scribe Document: Ready
[2018-06-17 21:54] LABS: ABS Basophils 0 10^3/ul (0-0.2); ABS Eosinophils 0.1 10^3/ul (0-0.6); ABS Lymphocytes 1.3 10^3/ul (1.0-4.8); ABS Monocytes 0.4 10^3/ul (0-0.8); ABS Neutrophils 2.3 10^3/ul (1.5-7.7); ABS Nucleated RBC 0 10^3/ul; Hematocrit 36 % (33-41); Hemoglobin 12.5 g/dL (12.0-16.0); Lymphocyte % 31.1 %; Mean Corpuscular HGB Conc 35 g/dL (31-36); Mean Corpuscular Hemoglobin 41 pg (27-31); Mean Corpuscular Volume 119 fL (80-97); Mean Platelet Volume 7.2 fL (7.4-10.4); Nucleated Red Blood Cells % 0.2; Platelet Count 128 10^3/uL (150-450); Red Blood Count 3.04 10^6 /uL (3.70-4.87); Red Cell Distribution Width 15 % (10.5-15); White Blood Count 4.1 10^3/uL (3.5-10.8)
[2018-06-17 22:02] LABS: Albumin 3.6 g/dL (3.2-5.2); Albumin/Globulin Ratio 1.6 (1-3); BUN/Creatinine Ratio 9.4 (8-20); Calcium 8.5 mg/dL (8.6-10.3); EGFR African American 249.2 (>60); Globulin 2.3 g/dL (2-4); Total Bilirubin 0.8 mg/dL (0.2-1.0); Total Protein 5.9 g/dL (6.4-8.9)
[2018-06-17 23:52] LABS: Urine Appearance Clear; Urine Bilirubin Negative (Negative); Urine Blood Negative (Negative); Urine Color Straw; Urine Glucose Negative (Negative); Urine Ketones Negative (Negative); Urine Nitrite Negative (Negative); Urine Protein Negative (Negative); Urine Specific Gravity 1.001 (1.010-1.030); Urine Urobilinogen Negative (Negative)
--- NOTE | 2018-06-18 07:06 | ED ---
Progress - Progress Note Progress Note: Pt is a 68 y/o F signed out from Dr. Lassiter at 0700 on 06/18/18 for sobriety. She currently states R arm is shattered due to falling several weeks ago. Pt has an appointment with her physician, Dr. Arias for her right shoulder fracture at 0945 that she would like to go to this. She states her arm currently hurts, and she usually takes Ibuprofen or Naproxen for pain. She denies CP, SOB, abd pain, blood in stool, and vomiting. Pt is not wearing her sling or splint because she takes it off at night. Appearance: Chronically ill-appearing, moderate pain distress, well-nourished Skin: Warm, color reflects adequate perfusion, dry. Ecchymoses of R inferior breast and R elbow. Head: Normal Head/Face inspection, atraumatic Eyes: Conjunctiva clear ENT: Normal inspection Neck: Supple, no nodes, no JVD Respiratory: Lungs clear, normal breath sounds, no respiratory distress Cardio: RRR, No murmur, pulses normal, brisk capillary refill Abdomen: Soft, nontender Bowel sounds: Present Musculoskeletal: Limited ROM of R arm, deformed R humeral head, no calf tenderness, no edema. Psychological: Normal Neuro: Alert, muscle tone normal, no focal deficit Home Medications Medication Instructions Recorded Confirmed Type LORazepam TAB(*) [Ativan 1 MG TAB 0.5 - 1 mg PO BID PRN #60 tab MDD 06/26/1606/13 Rx (*)] 2 mg Potassium Chlor TAB* [Potassium 20 meq PO BID 04/15/17 05/29/18 History Chlor TAB 20 MEQ*] QUEtiapine TAB* [Seroquel 25 MG 50 - 100 mg PO BEDTIME 06/10/17 05/29/18 History TAB*] Tiotropium CAP.INH* [Spiriva 1 cap.inh INH QAM 06/10/17 05/29/18 History CAP.INH*] Multivitamins/Minerals TAB* 1 tab PO QAM 08/08/17 05/29/18 History [Theragran/minerals TAB*] Albuterol inh POWDER (NF) [Proair 108 mcg INH Q4HR PRN 08/19/17 05/29/18 History Respiclick] Mometasone/Formoter 200/5 MDI* 2 puff INH BID #1 mdi 10/15/17 05/29/18 Rx [Dulera 200/5 MDI*] Folic Acid TAB* [Folvite TAB*] 1 mg PO DAILY #30 tab 11/22/17 05/29/18 Rx Acetaminophen TAB* [Tylenol TAB*] 650 mg PO Q6HR PRN 05/29/18 05/29/18 History Cholecalciferol (Vitamin D3) 2,000 unit PO DAILY 05/29/18 05/29/18 History [Vitamin D3] Electrolytes/Dextrose [Pedialyte 4 oz PO Q2HR 05/29/18 05/29/18 History Electrolyte Singles] Furosemide TAB* [Lasix TAB*] 20 mg PO QAM 05/29/18 05/29/18 History Lactose-Reduced Food [Boost High 237 - 474 ml PO DAILY 05/29/18 05/29/18 History Protein] Magnesium Oxide TAB* [MagOx 400 400 mg PO QAM 05/29/18 05/29/18 History TAB*] Naproxen TAB* [Naprosyn 250 mg 500 mg PO BID WITH MEALS 05/29/18 05/29/18 History TAB*] Ondansetron TAB* [Zofran 4 MG Tab*] 4 mg PO TID PRN 05/29/18 05/29/18 History Ranitidine TAB (NF) [Zantac TAB 150 mg PO BID 05/29/18 05/29/18 History (NF)] Oxycodone HCl 5 mg PO Q6H 1 Days #4 tablet MDD 4 06/05/18 Rx tabs Re-Evaluation - Re-Evaluation 1st re-eval Re-Evaluation Time: 09:26 Change: Improved Comment: The pt is clinically sober, and ambulates independently. She is expressing slight nausea which she will be given Zofran for, and she would like to be discharged. Course/Dx - Course Course Of Treatment: Pt is a 68 y/o F signed out from Dr. Lassiter at 0700 on 06/18 for sobriety. She currently states R arm is shattered due to falling several weeks ago. Pt has an appointment with her orthopedic physician, Dr. Arias at 0945 for her right shoulder fracture that she would like to go to. She states her arm currently hurts, and she usually takes Ibuprofen or Naproxen for pain. She denies CP, SOB, abd pain, blood in stool, and vomiting. Upon exam , the pt has multiple ecchymoses of the R arm and R inferior breast, the R humeral head is deformed, and she has limited ROM of the R arm. She is also chronically ill-appearing. Potassium and saline ordered for the pt to treat her hypokalemia and hyponatremia. As of 925, the pt is clinically sober, and ambulates independently. She is expressing slight nausea which she will be given Zofran for, and she would like to be discharged. The pt will be sent home with dx including alcohol abuse, hypokalemia, hyponatremia, and R shoulder fracture. - Diagnoses Provider Diagnoses: Alcohol abuse, Hypokalemia, Hyponatremia, Shoulder fracture, right Discharge - Sign-Out/Discharge Documenting (check all that apply): Patient Departure, Receiving Sign-Out Receiving patient FROM: Matty Lassiter Patient Received Moderate/Deep Sedation with Procedure: No - Discharge Plan Condition: Stable Disposition: HOME Prescriptions: Potassium Chlor TAB* [Potassium Chlor TAB 20 MEQ*] 40 meq PO DAILY #5 tab.er Patient Education Materials: Hyponatremia (ED), Hypokalemia (ED), Alcohol Intoxication (ED) Referrals: [facility] [Outside] Dorcas Chan, [employer] [Primary Care Provider] - 2 Days Additional Instructions: You were given IV fluids for your low sodium. You were given oral potassium for your low potassium. We have prescribed potassium for the next 5 days. Keep your appointment with Dr. Arias today. Continue to wear your sling and splint as directed by Dr. Arias. You were also given acetaminophen for your pain and zofran for your nausea. Return to the ER if you have any new or worsening symptoms. - Billing Disposition and Condition Condition: STABLE Disposition: Home - Attestation Statements Document Initiated by Nasreen: Yes Documenting Scribe: Selene Washington Provider For Whom Nasreen is Documenting (Include Credential): Dr. Gracia Stauffer MD. Scribe Attestation: Selene Juárez scribed for Dr. Gracia Stauffer MD. on 06/18/18 at 2217. Scribe Documentation Reviewed: Yes Provider Attestation: The documentation as recorded by the Selene juan'Eh accurately reflects the service I personally performed and the decisions made by me, Dr. Gracia Stauffer MD. Status of Scribe Document: Viewed
[2018-06-18] MEDS ORDERED: Potassium Chlor TAB* 20 MEQ TAB.ER PO ONE (08:04)
[2018-06-18] MEDS ORDERED: Acetaminophen TAB* 325 MG PO ONE (08:07)
[2018-06-18] MEDS ORDERED: NS 0.9% 1000 ML** 1,000 ML IV.FLUID IV SCH (08:15)
[2018-06-18 09:23] VITALS: BP 121/79
[2018-06-18] MEDS ORDERED: Ondansetron ODT TAB* 4 MG SL PRN (09:25)
[2018-06-18] MEDS ORDERED: Ondansetron ODT TAB* 4 MG ONE (09:26)
== END 2018-06-18 09:21 | disposition home or self-care (01) ==
LOC: ED 21:09
DX: F10.129 Alcohol abuse with intoxication, unspecified (principal); D53.9 Nutritional anemia, unspecified; I25.119 Atherosclerotic heart disease of native coronary artery with unspecified angina pectoris; I10 Essential (primary) hypertension; E78.00 Pure hypercholesterolemia, unspecified; J44.9 Chronic obstructive pulmonary disease, unspecified; K21.9 Gastro-esophageal reflux disease without esophagitis; F41.0 Panic disorder [episodic paroxysmal anxiety]; F32.9 Major depressive disorder, single episode, unspecified; Z88.1 Allergy status to other antibiotic agents; Z88.8 Allergy status to other drugs, medicaments and biological substances; F17.210 Nicotine dependence, cigarettes, uncomplicated
CPT/HCPCS: 36415; 80053; 80320; 81003; 85025; 96360; 99285; A9270-GY; G0480

== ENCOUNTER 2018-06-18 19:09 | Observation (INO) | payer MEDICARE, MEDICAID ==
--- OUTSIDE RECORDS SUMMARY | 2018-06-18 19:29 | XMS REPORT | Continuity of Care Document ---
:1950 External Reference #:[id number] Author Name Lali Marinelli Care Team Providers Name Role Phone Patient's Choice Primary Care Physician Unavailable Payers Date Identification Numbers Payment Provider Subscriber Policy Number: [id number] [employer] Janeth E Gell PayID: [id number] [address] [address] Attn: [place] [address] Policy Number: [id number] Medicaid Janeth E Gell Group Name: 1 1 [address] PayID: [id number] [place] [address] Expires: 2017 Policy Number: [id number] [employer] Of [place] Janeth E Gell Group Number: [id number] [address] [address] PayID: [id number] [place] [address] Onset: 2015 Policy Number: [id number] [employer] Janeth E Gell PayID: [id number] [address] [address] [place] [address] Advance Directives Description No Information Available Problems Active Problems Provider Date Anxiety state Rosalinda Ortega M.D. Onset: 01/29/2009 Asthma without status asthmaticus Rosalinda Ortega M.D. Onset: 01/29/2009 Nondependent alcohol abuse, continuous Rosalinda Ortega M.D. Onset: 2009 Closed fracture of surgical neck of Sia Burt MD Onset: 10/31/2017 humerus Abdominal pain Bryan Presley II, M.D. Onset: 10/13/2017 Chronic obstructive lung disease Bryan Presley II, M.D. Onset: 10/13/2017 Alcohol dependence, uncomplicated Bryan Presley II, M.D. Onset: 10/13/2017 Acidosis Sam Castro M.D. Onset: 10/14/2017 Chronic obstructive pulmonary disease Sam Castro M.D. Onset: 10/15/2017 with (acute) exacerbation Alcohol withdrawal syndrome Sam Castro M.D. Onset: 10/15/2017 Right upper quadrant pain Sam Castro M.D. Onset: 10/15/2017 Low blood pressure Bryan Presley II, M.D. Onset: 11/20/2017 Hypo-osmolality and or hyponatremia Bryan Presley II, M.D. Onset: 2017 Hypokalemia Bryan Presley II, M.D. Onset: 11/20/2017 Alcohol dependence with intoxication, Bryan Presley II, M.D. 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 Tobacco Use Start: Unknown Current Cigarette smoked 37 yrs Smoker 5-10 Cigarettes Daily Tobacco Use Start: Unknown current cigarette Quit for 2 years on smoker [employer]. Started a walking program. Recently startedrf up again ETOH Use Has consumed alcohol in the past ETOH Use Drinks Alcoholic Currently since kids Beverages Occasionally are home 3 beers a day. Not normally. Usually does not drink at all ETOH Use Denies alcohol use Tobacco Use Start: Unknown Heavy tobacco smoker (more than 10 cigarettes/day) Smoking Status Reviewed: 06/18/18 Heavy tobacco smoker (more than 10 cigarettes/day) Exercise Does not exercise Type/Frequency Allergies, Adverse Reactions, Alerts Active Allergies Reaction Severity Comments Date Neurontin edema 08/10/2015 Doxycycline 06/18/2018 Prednisone 06/18/2018 Medications Active Medications SIG Qnty Indications Ordering Provider Date Potassium Magnesium daily Sia Burt MD 01/07/2018 Tablet Calcitrate take 1 tab daily 30tabs S42.211D Sia Burt MD 11/26/2017 950mg Tablets Multi For Her 50+ take 1 tab daily 30caps S42.211D Sia Burt MD 2017 Capsules Ibuprofen three times a day 90tabs S42.211A Sia Burt MD 10/31/2017 600mg Tablets take with food Lorazepam 1 by mouth once 60tabs Unknown 1mg Tablets daily as needed Proair HFA Dorcas Chan, 108(90Base) NPC mcg/Act Aerosol B Complex Daily Unknown Vitamin D daily Unknown (Ergocalciferol) Capsules Dulera 2 puff twice a Unknown 200-5mcg/Act day Aerosol Aspirin Adult Low 1 by mouth as Unknown Strength needed for pain 325mg Tablets DR Valdez take 1 tablets by Unknown 50mg Tablets mouth every night Prednisone Taper dose Unknown History Medications Ergocalciferol Take 1 by mouth 8caps Sia Burt MD 11/12/2017 - weekly x 8 weeks 01/06/2018 [id number] Capsules Tramadol HCL 1 tablet by mouth 20tabs Sia Burt MD 11/08/2017 - 50mg every 4-6 hours 01/06/2018 Tablets as needed pain Percocet take 1 tabs as 20tabs S42.211 Sia Burt MD 10/31/2017 - 5-325mg needed for pain A 01/06/2018 Tablets every 6 hours. do not combine with tylenol Medihoney Wound/Burn fill wound daily 1units Eliseo Olson 08/12/2015 - Dressing Eriberto Smalls 09/30/2017 Gel Guaifenesin 2 teaspoons PO q 120ml 787.91 Rosalinda 02/09/2010 - 100mg/5ML 4 h prn Eriebrto Ortega 08/09/2015 Syrup Ventolin HFA Inhale 2 Puffs 4 18units Rosalinda 01/03/2010 - Times A Day as Eriberto Ortega 08/09/2015 108(90Base) mcg/ac Needed. Aers Avelox 1 tablet daily 3tabs Rosalinda 12/16/2009 - 400mg Tablets Eriberto Ortega 02/09/2010 Tramadol HCL 1-2 tablets every 40tabs 784.0 Rosalinda 11/23/2009 - 50mg 6 hours Eriberto Ortega 08/09/2015 Tablets Aspirin 1 by mouth once Rosalinda 11/18/2009 - 81mg Tablets DR freda Ortega M.D. 08/09/2015 Simvastatin Take One Tablet 30tabs [facility] 11/18/2009 - 10mg By Mouth Every Eriberto Ortega 08/09/2015 Tablets Day AT Bedtime. Spiriva Handihaler 1 inhalation in 30caps 786.2 Rosalinda 2009 - am Eriberto Ortega 08/09/2015 18mcg Capsules Albuterol Inhaler 2 puffs 4 times a 17gm [facility] 01/11/2009 - day as needed Eriberto Ortega 02/10/2010 Adderall one prn 30tabs [facility] 12/22/2008 - 5mg Tablets Eriberto Ortega 01/29/2009 Seroquel 1 tablet at 90tabs [facility] 12/22/2008 - 100mg Tablets bedtime Eriberto Ortega 10/23/2015 Klonopin 1 po bid 60tabs [facility] 12/22/2008 - 1mg Tablets Eriberto Ortega 2009 Geodon po qam 30caps [facility] 12/22/2008 - 40mg Capsules Eriberto Ortega 01/29/2009 Lunesta 1 by mouth at 30tabs [facility] 12/22/2008 - 3mg Tablets bedtime Eriberto Ortega 08/09/2015 Calcium-D 1 po daily 60caps [facility] 12/22/2008 - 510-944kt-Wn Eriberto Ortega 11/17/2009 Capsules Wellbutrin SR po daily [facility] 12/22/2008 - 200mg Eriberto Ortega 03/29/2009 Tablets ER 12HR Asa 1 tablet daily [facility] 12/22/2008 - 81mg Eriberto Ortega 11/18/2009 Prednisolone Taper dose Unknown - Fpc, Micronized Unknown Anhydrous Ondansetron Heetderks, - 4mg Tablets Chris Pineda MD 01/06/2018 Dispers Prednisone taper dose Unknown - 01/06/2018 D Unknown - 01/06/2018 Seroquel take 1 tablet by Unknown - 50mg Tablets mouth every night 08/30/2017 at bedtime Naproxen 1 tablet with Unknown - Unsure Tablets food by mouth 08/30/2017 twice a day Cephalexin one three times Unknown - 500mg daily 10/31/2017 Tablets Amoxicillin/Clavulana Blegen, - te Anthony Jameson MD 10/23/2015 875-125mg Tablets Etodolac Unknown - 400mg Tablets 10/23/2015 Sulfamethoxazole/Trim Unknown - ethoprim DS 10/07/2015 800-160mg Tablets Oxycodone HCL Dorcas Chan, - 5mg NPC 08/30/2017 Tablets Wellbutrin 1 tablet daily 30tabs Unknown - 100mg 12/12/2009 Tablets Chantix 1 Tablet Twice A 60tabs Rosalinda - 1mg Tablets Day Eriberto Ortega 12/12/2009 Pristiq Unknown - Tablets ER 11/17/2009 24HR Adderall 1/2 prn 30tabs Unknown - 5mg Tablets 01/29/2009 Klonopin 1 tablet 2-3 90tabs Rosalinda - 1mg Tablets times daily Eriberto Ortega 11/18/2009 Geodon po at hs prn Unknown - 40mg Capsules 01/29/2009 Zocor 1 tablet at 30tabs Rosalinda - 10mg Tablets bedtime Eriberto Ortega 11/18/2009 Seroquel 1 po qhs prn 60tabs Unknown - 50mg Tablets 01/29/2009 Multi Vitamin 1 po qd Unknown - Tablets 11/17/2009 Calcium-Vitamin D qd Unknown - 11/17/2009 500-125 Tablets Aspir-81 1 po qd Unknown - 81mg Tablets 11/17/2009 DR Guajardo SR 1 po qd 60tabs Unknown - 100mg 03/29/2009 Tablets ER 12HR Immunizations CPT Code Status Date Vaccine Lot # [id number] Given 11/18/2009 Influenza Virus 3Yrs & Over [id number] Given 12/22/2008 Influenza Virus 3Yrs & Over [id number] Vital Signs Date Vital Result Comment 06/18/2018 12:11pm Height 63.5 inches 5'3.50" Weight 125.00 lb Heart Rate 62 /min BP Systolic 110 mmHg BP Diastolic 60 mmHg Body Temperature 98.2 F Pain Level 8 BMI (Body Mass Index) 21.8 kg/m2 01/07/2018 11:39am Height 63.5 inches 5'3.50" Heart Rate 100 /min BP Systolic Sitting 112 mmHg BP Diastolic Sitting 90 mmHg Pain Level 6 11/26/2017 1:00pm Height 63.5 inches 5'3.50" Weight 129.00 lb BP Systolic 128 mmHg BP Diastolic 76 mmHg Respiratory Rate 20 /min Pain Level 8 BMI (Body Mass Index) 22.5 kg/m2 11/08/2017 9:47am Height 63.5 inches 5'3.50" Weight 129.00 lb Heart Rate 80 /min BP Systolic 138 mmHg BP Diastolic 80 mmHg Respiratory Rate 18 /min Pain Level 10 BMI (Body Mass Index) 22.5 kg/m2 10/31/2017 10:57am Height 63.5 inches 5'3.50" Weight 129.00 lb Heart Rate 82 /min BP Systolic Sitting 126 mmHg BP Diastolic Sitting 70 mmHg Respiratory Rate 16 /min Pain Level 9 BMI (Body Mass Index) 22.5 kg/m2 10/24/2015 3:50pm Height 63.5 inches 5'3.50" Weight 124.12 lb Heart Rate 88 /min BP Systolic Sitting 158 mmHg BP Diastolic Sitting 68 mmHg Respiratory Rate 14 /min Body Temperature 98.8 F BMI (Body Mass Index) 21.6 kg/m2 08/10/2015 1:06pm Height 63.5 inches 5'3.50" Weight 160.00 lb Heart Rate 76 /min Respiratory Rate 16 /min Pain Level 6 BMI (Body Mass Index) 27.9 kg/m2 02/09/2010 11:13am Heart Rate 80 /min BP Systolic 160 mmHg BP Diastolic 88 mmHg Body Temperature 98.5 F 12/12/2009 10:39am Weight 166.50 lb Heart Rate 84 /min BP Systolic Sitting 140 mmHg BP Diastolic Sitting 80 mmHg Body Temperature 98.7 F O2 % BldC Oximetry 97 % 11/23/2009 12:00pm Weight 166.12 lb Heart Rate 62 /min BP Systolic 118 mmHg BP Diastolic 88 mmHg 11/18/2009 9:32am Weight 164.50 lb Heart Rate 62 /min BP Systolic 130 mmHg BP Diastolic 80 mmHg 03/29/2009 10:13am Weight 159.00 lb Heart Rate 92 /min BP Systolic Sitting 110 mmHg BP Diastolic Sitting 70 mmHg Body Temperature 97.6 F 2009 1:43pm Weight 160.50 lb Heart Rate 80 /min BP Systolic Sitting 154 mmHg BP Diastolic Sitting 80 mmHg Respiratory Rate 16 /min Body Temperature 98.4 F 12/22/2008 9:08am Weight 163.50 lb Heart Rate 84 /min BP Systolic Sitting 130 mmHg BP Diastolic Sitting 84 mmHg Respiratory Rate 16 /min Body Temperature 98.6 F 12/21/2008 11:09am Height 63 inches 5'3" Weight 166.00 lb Heart Rate 78 /min BP Systolic Sitting 120 mmHg BP Diastolic Sitting 85 mmHg BMI (Body Mass Index) 29.4 kg/m2 12/09/2008 9:07am Height 63 inches 5'3" Weight 166.75 lb Heart Rate 66 /min BP Systolic Sitting 124 mmHg BP Diastolic Sitting 72 mmHg BMI (Body Mass Index) 29.5 kg/m2 09/01/2008 10:07am Height 63 inches 5'3" Weight 173.00 lb Heart Rate 91 /min BP Systolic Sitting 130 mmHg BP Diastolic Sitting 80 mmHg BP Systolic Standing 130 mmHg BP Diastolic Standing 80 mmHg BP Systolic Lying Down 140 mmHg BP Diastolic Lying Down 80 mmHg Respiratory Rate 16 /min BMI (Body Mass Index) 30.6 kg/m2 Results Test Date Facility Test Result H/L Range Note Basic Metabolic 11/06/2017 [facility] Sodium 127 mmol/L Low 135-145 Panel [address] [place] [address] [phone] Potassium 3.5 mmol/L N 3.5-5.0 Chloride 93 mmol/L Low 101-111 Co2 Carbon Dioxide 27 mmol/L N 22-32 Anion Gap 7 mmol/L N 2-11 Glucose 128 mg/dL High 70-100 Blood Urea Nitrogen 7 mg/dL N 6-24 Creatinine 0.34 mg/dL Low 0.51-0.95 BUN/Creatinine Ratio 20.6 High 8-20 Calcium 8.8 mg/dL N 8.6-10.3 Egfr Non- 192.6 >60 Egfr 233.1 >60 1 Laboratory test 11/06/2017 [facility] Vitamin D 24.0 ng/mL N 20-[address] Total 25(Oh) [place] [address] [phone] Laboratory test 08/08/2014 [facility] Inr 0.88 N 0.78-1.[address] [place] [address] [phone] Activated Partial Thrombo Time 34.3 seconds N 26.0-36.3 Blood Culture 05/15/2011 [facility] M <SEE [address] NOTE> [place] [address] [phone] O&P: 03/01/2010 [facility] O P: Giardia and cryp <SEE 3, 4 Giardia/Crypt [address] Giardia/Cry NOTE> [place] [address] pto Screen [phone] O P: Giardia/Crypto Screen NEGATIVE BY IMMU <SEE NOTE> 5 Comp Metabolic Panel 02/09/2010 [facility] Sodium 138 mmol/L 135-[address] [place] [address] [phone] Potassium 3.6 mmol/L 3.5-5.0 Chloride 103 mmol/L [...] eGFR 131.6 > 60 9 CBC With 02/09/2010 [facility] White Blood 8.5 CUMM 4.8-10.8 Electronic Diff [address] [place] [address] [phone] Red Cell Count 4.32 CUMM 4.2-5.4 Hemoglobin 16.4 g/dL High 12.0-16.0 Hematocrit 47 % 35-47 Mean Corpuscular Volume 108 um3 High 79-97 Mean Corpuscular Hemoglob 38 pg High 27-31 Mean Corpuscular HGB Cone 35 g/dL 32-36 Redcell Distribution WDTH 15 % 10.5-15 Platelet Count 189 CUMM 150-450 Mean Platelet Volume 7.8 um3 7.4-10.4 10 Manual Differential 02/09/2010 [facility] Polysegmented 55 % 38-[address] [place] [address] [phone] Lymphocyte 37 % 25-47 Monocyte 6 % 0-13 Eosinophil 2 % 0-6 Absolute Neutrophil Count 4.6 Anisocytosis SLIGHT Comp Metabolic Panel 01/21/2010 [facility] Sodium 134 mmol/L Low 135-[address] [place] [address] [phone] Potassium 3.2 mmol/L Low 3.5-5.0 Chloride 100 [...] eGFR 163.0 > 60 14 Liver Function 01/21/2010 [facility] Bilirubin Direct 0.2 mg/dL 0.1-0.5 Panel [address] [place] [address] [phone] Indirect Bilirubin 0.7 mg/dL 0.3-1.0 15 Laboratory test finding 01/21/2010 [facility] Amylase 34 U/L 20-120 16 [address] [place] [address] [phone] Lipase 20 U/L Low 22-51 Alcohol < 10.0 mg/dL None Detected 17 Protime 01/21/2010 [facility] Inr 0.98 0.82-1.17 18 [address] [place] [address] [phone] Protime 11.6 SEC 10.2-14.8 19 Laboratory test 01/21/2010 [facility] PTT (Aptt) 32.9 25.15- 38.[address] [place] [address] [phone] Troponin-I 0.01 NG/ML 0-0.06 20 Blood Culture 01/21/2010 [facility] Aerobic Culture NG5 [address] [facility] [place] [address] [phone] Anaerobic Culture 01/21/2010 [facility] Anaerobic NG5 [address] [place] [address] [phone] Urinalysis 01/21/2010 [facility] Ua Color YELLOW Yellow W/Microscopic [address] [place] [address] [phone] Appearance-Urine CLEAR Clear Specific Imbler-Ur 1.016 1.010-1.030 Esterase-Urine 1+ Abnormal Negative Nitrite NEGATIVE Negative Itqlrnzrzalk-Py-JIH NEGATIVE Negative Protein-Urine NEGATIVE Negative PH-Urine 6.0 5-9 Blood-Urine NEGATIVE Negative Ketones-Urine NEGATIVE Negative Bilirubin-Ur NEGATIVE Negative Glucose-Urine NEGATIVE Negative Hyaline Casts-Urine RARE 0-2 WBC-Urine 0-2 0-5 RBC-Urine 0-2 0-2 Epith Cells-Ur FEW None Bacteria-Urine 1+ None Crystals-Urine (SEE NOTE) None 23 CBC With 01/21/2010 [facility] White Blood 7.3 CUMM 4.8-10.8 Electronic Diff [address] [place] [address] [phone] Red Cell Count 4.03 CUMM Low 4.2-5.4 [...] 0.1 0-0.2 25 Urine Culture & 01/21/2010 [facility] Urine Culture GROUP D 26 Sensitivi [address] [facility] Sensitivi [place]TER[place]O <[place] [address] NOTE> [phone] Urine Culture Sensitivi NORMAL EDDIE 27 Sensitivities For Urine 01/21/2010 [facility] Ampicillin <=2 S Culture [address] [place] [address] [phone] Ciprofloxacin 1 S Nitrofurantoin <=16 S High Level Gentamicin SYN-S S High Level Streptomycin SYN-S S Levofloxacin 1 S Penicillin 4 S Tetracycline >=16 R Tigecycline <=0.12 S Vancomycin 1 S Comp Metabolic Panel 11/10/2009 [facility] Sodium 136 mmol/L 135-145 [address] [place] [address] [phone] Potassium 4.0 mmol/L 3.5-5.0 Chloride 106 mmol/L 101-111 Co2 (Carbon Dioxide) 23.0 mmol/L 22-32 Anion Gap 7.0 mmol/L 2-11 28 Glucose 90 mg/dL 70-100 29 BUN 11 mg/dL 6-24 Creatinine 0.60 mg/dL 0.50-1.40 One Over Creatinine 1.60 BUN/Creatinine Ratio 18.3 8-20 Calcium 9.5 mg/dL 8.1-9.9 Total Protein 6.4 GM/DL 6.2-8.1 Albumin 4.1 GM/DL 3.6-5.4 Globulin 2.3 GM/DL 2-4 Albumin/Globulin Ratio 1.8 1-3 Bilirubin Total 1.1 mg/dL 0.4-1.5 30 Alkaline Phosphatase 47 U/L 30-110 Alt (SGPT) 25 U/L 14-54 Ast (Sgot) 32 U/L 12-42 eGFR Non- 109.1 > 60 eGFR 132.0 > 60 31 Lipid Profile 11/10/2009 [facility] Triglyceride 126 mg/dL 40 -200 (Trig/Chol/HDL) [address] [place] [address] [phone] Cholesterol 194 mg/dL Less Than 200 32 High Density Lipoprotein 57 mg/dL 40-60 33 Cholesterol/HDL Ratio 3.40 AVERAGE 1-4.44 Low Density Lipoprotein 112 mg/dL High Less Than 100 34 DS3 03/29/2009 [facility] Amphetamines Urine NONE DETECTED None Detect [address] [place] [address] [phone] Barbituates Urine Screen NONE DETECTED None Detect Benzodiazepine Ur Screen POSITIVE Abnormal None Detect Cannabinoid Urine Screen NONE DETECTED None Detect Cocaine Metabolites Urine NONE DETECTED None Detect Opiates Urine Screen NONE DETECTED None Detect PCP Urine Screen NONE DETECTED None Detect 35 Urinalysis 03/29/2009 [facility] [place] [address] [phone] Appearance-Urine CLEAR Clear Specific Imbler-Ur 1.004 Low 1.010-1.030 Esterase-Urine NEGATIVE Negative Nitrite NEGATIVE Negative Firnptvwysja-Un-NHQ NEGATIVE Negative Protein-Urine NEGATIVE Negative PH-Urine 6.5 5-9 Blood-Urine NEGATIVE Negative Ketones-Urine NEGATIVE Negative Bilirubin-Ur NEGATIVE Negative Glucose-Urine NEGATIVE Negative Laboratory test 03/29/2009 [facility] TSH 3.79 MIU/ML 0.34- 5.[place] [address] [phone] Alcohol Stat 03/29/2009 [facility] Alcohol 162.2 mg/dL High None Detected [address] [place] [address] [phone] CMP Panel Stat 03/29/2009 [facility] Sodium 131 mmol/L Low 135 -[address] [place] [address] [phone] Potassium 3.7 mmol/L 3.5-5.0 Chloride 100 mmol/L Low 101-111 Co2 (Carbon Dioxide) 22.0 mmol/L 22-32 Anion Gap 9.0 mmol/L 2-11 38 Glucose 81 mg/dL 70-100 39 BUN 8 mg/dL 6-24 Creatinine 0.60 mg/dL 0.50-1.40 One Over Creatinine 1.60 BUN/Creatinine Ratio 13.3 8-20 Calcium 8.5 mg/dL 8.1-9.9 40 Total Protein 5.4 GM/DL Low 6.2-8.1 Albumin 3.5 GM/DL Low 3.6-5.4 Globulin 1.9 GM/DL Low 2-4 Albumin/Globulin Ratio 1.8 1-3 Bilirubin Total 1.2 mg/dL 0.4-1.5 41 Alkaline Phosphatase 49 U/L 30-110 Alt (SGPT) 16 U/L 14-54 Ast (Sgot) 25 U/L 12-42 eGFR Non- 109.1 > 60 eGFR 132.0 > 60 42 CBC With 03/29/2009 [facility] White Blood 4.8 CUMM 4.8-10.8 Electronic Diff [address] [place] [address] [phone] Red Cell Count 3.70 CUMM Low 4.2-5.4 [...] Eosinophils 0.2 0-0.6 Abs Basophils 0 0-0.2 Alcohol Stat 03/28/2009 [facility] Alcohol 191.8 mg/dL High None [address] [place] [address] [phone] Urinalysis 03/28/2009 [facility] Ua Color YELLOW Yellow W/Microscopic [address] [place] [address] [phone] Appearance-Urine CLEAR Clear Specific Imbler-Ur 1.003 Low 1.010-1.030 Esterase-Urine TRACE Abnormal Negative Nitrite NEGATIVE Negative Ltrfwqphosdw-Wn-PAW NEGATIVE Negative Protein-Urine NEGATIVE Negative PH-Urine 6.5 5-9 Blood-Urine NEGATIVE Negative Ketones-Urine NEGATIVE Negative Bilirubin-Ur NEGATIVE Negative Glucose-Urine NEGATIVE Negative WBC-Urine 0-2 0-5 RBC-Urine 0-2 0-2 Epith Cells-Ur RARE None Bacteria-Urine TRACE None Amorphous Sed-U TRACE None CMP Panel Stat 03/28/2009 [facility] Sodium 138 mmol/L 135- [address] [place] [address] [phone] Potassium 3.8 mmol/L 3.5-5.0 Chloride 107 mmol/L [...] > 60 eGFR 163.0 > 60 48 DS3 03/28/2009 [facility] Amphetamines Urine NONE DETECTED None Detect [address] [place] [address] [phone] Barbituates Urine Screen NONE DETECTED None Detect Benzodiazepine Ur Screen POSITIVE Abnormal None Detect Cannabinoid Urine Screen NONE DETECTED None Detect Cocaine Metabolites Urine NONE DETECTED None Detect Opiates Urine Screen NONE DETECTED None Detect PCP Urine Screen NONE DETECTED None Detect 49 CBC With 03/28/2009 [facility] White Blood 5.9 CUMM 4.8-10.8 Electronic Diff [address] [place] [address] [phone] Red Cell Count 4.01 CUMM Low 4.2-5.4 [...] 0-0.6 Abs Basophils 0.1 0-0.2 Laboratory test 2009 [facility] Vitamin B12 606 pg/mL 180-[address] [place] [address] [phone] Comp Metabolic 2009 [facility] Sodium 134 mmol/L Low 135 -[address] [place] [address] [phone] Potassium 3.7 mmol/L 3.5-5.0 Chloride 100 mmol/L [...] > 60 eGFR 110.5 > 60 54 CBC With 01/16/2009 [facility] White Blood 7.2 CUMM 4.8-10.8 Electronic Diff [address] [place] [address] [phone] Red Cell Count 3.90 CUMM Low 4.2-5.4 Hemoglobin 14.4 g/dL 12.0-16.0 Hematocrit 42 % 35-47 Mean Corpuscular Volume 106 um3 High 79-97 55 Mean Corpuscular Hemoglob 37 pg High 27-31 [...] Eosinophils 0.2 0-0.6 Abs Basophils 0.1 0-0.2 56 DS3 01/16/2009 [facility] Amphetamines Urine NONE DETECTED None Detect [address] [place] [address] [phone] Barbituates Urine Screen NONE DETECTED None Detect Benzodiazepine Ur Screen NONE DETECTED None Detect Cannabinoid Urine Screen NONE DETECTED None Detect Cocaine Metabolites Urine NONE DETECTED None Detect Opiates Urine Screen NONE DETECTED None Detect PCP Urine Screen NONE DETECTED None Detect 57 Ua Stat 01/16/2009 [facility] Ua Color YELLOW [address] [place] [address] [phone] Appearance-Urine CLEAR Specific Imbler-Ur 1.002 Low 1.010-1.030 Esterase-Urine TRACE Abnormal Negative Nitrite NEGATIVE Negative Czahldisruej-Kj-NFA NEGATIVE Negative Protein-Urine NEGATIVE Negative PH-Urine 6.0 5-9 Blood-Urine NEGATIVE Negative Ketones-Urine NEGATIVE Negative Bilirubin-Ur NEGATIVE Negative Glucose-Urine NEGATIVE Negative CMP Panel Stat 01/16/2009 [facility] Sodium 132 mmol/L Low 135 -[address] [place] [address] [phone] Potassium 3.2 mmol/L Low 3.5-5.0 Chloride 100 mmol/L Low 101-111 Co2 (Carbon Dioxide) 22.0 mmol/L 22-32 Anion Gap 10.0 mmol/L 2-11 58 Glucose 79 mg/dL 70-100 59 BUN 8 mg/dL 6-24 Creatinine 0.70 mg/dL 0.50-1.40 One Over Creatinine 1.40 BUN/Creatinine Ratio 11.4 8-20 Calcium 8.8 mg/dL 8.1-9.9 60 Total Protein 6.0 GM/DL Low 6.2-8.1 Albumin 3.8 GM/DL 3.6-5.4 Globulin 2.2 GM/DL 2-4 Albumin/Globulin Ratio 1.7 1-3 Bilirubin Total 0.7 mg/dL 0.4-1.5 61 Alkaline Phosphatase 39 U/L 30-110 Alt (SGPT) 17 U/L 14-54 Ast (Sgot) 22 U/L 12-42 eGFR Non- 91.7 > 60 eGFR 110.9 > 60 62 Laboratory test 01/16/2009 [facility] Troponin-I (TnI) 0.01 NG/ ML [address] [place] [address] [phone] Acetaminophen < 10 g/mL Low 10-30 64 Alcohol Stat 01/16/2009 [facility] Alcohol 226.2 High None [address] mg/[place] [address] [phone] Salicylate Stat 01/16/2009 [facility] Salicylate < 4.0 Less Than [address] mg/[place] [address] [phone] Urinalysis 01/16/2009 [facility] Ua Color YELLOW W/Microscopic [address] [place] [address] [phone] Appearance-Urine CLEAR Specific Imbler-Ur 1.002 Low 1.010-1.030 Esterase-Urine TRACE Abnormal Negative Nitrite NEGATIVE Negative Fzmnfbaavhtp-Uy-ZTA NEGATIVE Negative Protein-Urine NEGATIVE Negative PH-Urine 6.0 5-9 Blood-Urine NEGATIVE Negative Ketones-Urine NEGATIVE Negative Bilirubin-Ur NEGATIVE Negative Glucose-Urine NEGATIVE Negative WBC-Urine 0-2 0-5 RBC-Urine 0-2 0-2 Mucus Urine SMALL Epith Cells-Ur FEW Comp Metabolic Panel 12/22/2008 [facility] Sodium 142 mmol/L 135-[address] [place] [address] [phone] Potassium 3.7 mmol/L 3.5-5.0 Chloride 108 mmol/L [...] eGFR 132.5 > 60 71 CBC With 12/22/2008 [facility] White Blood 9.8 CUMM 4.8-10.8 Electronic Diff [address] [place] [address] [phone] Red Cell Count 3.98 CUMM Low 4.2-5.4 [...] 0.2 0-0.6 Abs Basophils 0 0-0.2 73 Celiac Panel 12/22/2008 [facility] Endomysial Abs Negative Negative 74 [address] [place] [address] [phone] Gliadin Igg <1.0 U () 75 Gliadin Iga 1.3 U () 76 Reticulin AB Negative Negative 77 Lipid Profile 12/22/2008 [facility] Triglyceride 581 mg/dL High 40-200 (Trig/Chol/HDL) [address] [place] [address] [phone] Cholesterol 143 mg/dL Less Than 200 78 High Density Lipoprotein 32 mg/dL Low 40-60 79 Cholesterol/HDL Ratio 4.47 AVERAGE High 1-4.44 Low Density Lipoprotein (SEE NOTE) mg/dL Less Than 100 80 Laboratory test 12/22/2008 [facility] TSH 3.72 MIU/ML 0.34- 5.60 finding [address] [place] [address] [phone] Erythrocyte Sed Rate 17 MM/HR 0-30 Basic Metabolic Panel 12/09/2008 [facility] Sodium 138 mmol/L 135-145 [address] [place] [address] [phone] Potassium 3.6 mmol/L 3.5-5.0 Chloride 107 mmol/L 101-111 Co2 (Carbon Dioxide) 24.0 mmol/L 22-32 Anion Gap 7.0 mmol/L 2-11 81 Glucose 102 mg/dL High 70-100 82 BUN 6 mg/dL 6-24 Creatinine 0.70 mg/dL 0.50-1.40 One Over Creatinine 1.40 BUN/Creatinine Ratio 8.6 8-20 Calcium 9.6 mg/dL 8.1-9.9 83 eGFR Non- 91.7 > 60 eGFR 110.9 > 60 84 CBC With Manual 12/09/2008 [facility] White Blood 6.5 CUMM 4.8-10.[address] [place] [address] [phone] Red Cell Count 3.83 CUMM Low 4.2-5.4 Hemoglobin 14.3 g/dL 12.0-16.0 Hematocrit 42 % 35-47 Mean Corpuscular Volume 109 um3 High 79-97 85 Mean Corpuscular Hemoglob 37 pg High 27-31 Mean Corpuscular HGB Cone 34 g/dL 32-36 Redcell Distribution WDTH 14 % 10.5-15 Platelet Count 217 CUMM 150-450 Mean Platelet Volume 7.8 um3 7.4-10.4 Polysegmented Neutrophil 79 % 38-83 Lymphocyte 18 % Low 25-47 Monocyte 1 % 0-13 Eosenophil 2 % 0-6 Absolute Neutrophil Count 5.1 Macrocytosis 1+ Polychromasia SLIGHT Laboratory test 12/09/2008 [facility] PTT (Aptt) 37.5 25.15- 38.53 86 finding [address] [place] [address] [phone] Protime 12/09/2008 [facility] Inr 1.07 0.86-1.13 87 101 [facility] [place] [address] [phone] Protime 13.0 SEC 10.7-13.6 88 1 Because ethnic data is not always [...] <15 (or dialysis) 2 RUN DATE: 05/20/11 [facility] NMI LIVE PAGE 1 RUN TIME: 1044 Specimen Inquiry RUN USER: INTERFACE Name: JANETH BLAND Status: DIS Ko Re05/15/11 Age/Sex: 61/F Unit#: [id number] Location: [facility] Manning. : 52 SPEC #: [id number] [place]: 05/15/11 STATUS: COMP REQ #: [id number] RECD: 05/15/[address] [facility] [address]: José Luis PENA, Elida Malagon SOURCE: BLOOD ENTR: 05/15/[address]: Eric PENA,Patrizia SPDESC: BLOOD,VENO Storm ANESTHESIA ASSISTANT,Bessy Murguia PA-C ORDERED: BLOOD CULTURE ACT WKST: BC 05/16/11 #1 Procedure Result Verified Site > AEROBIC CULTURE BOTTLE Final 05/20/11- 1044 ML NO GROWTH AFTER 5 DAYS > ANAEROBIC CULTURE BOTTLE Final 05/20/11- 1044 ML NO GROWTH AFTER 5 DAYS - [facility] Permit #[id number] [facility] [address] DEPARTMENT OF PATHOLOGY, [address] [place] [id number] [facility] Permit #[id number] Tyson Coles M.D. Director Jorje Kwok M.D. Associate Professor Physician 3 STOOL C S REJECTED; TRANSPORT MEDIA WAS FROZEN ON RECEIPT VERBAL TO ULYSSES ROBERSON) [facility] at [phone] on [...] is requested. Contact the Microbiology Department at [phone]. TEST LIMITATIONS: As with all diagnostic procedures, [...] change was based on recommendations from the [place] [employer]. 8 A metabolite of Naproxen, O-desmethylnaproxen, has been shown to interfere with the Jendrassik-Sheffield method for measuring total bilirubin. Samples from [...] change was based on recommendations from the [place] [employer]. 13 A metabolite of Naproxen, O-desmethylnaproxen, has been shown to interfere with the Jendrassik-Sheffield method for measuring total bilirubin. Samples from [...] 0.06 ng/mL NOT SUPPORTIVE OF DIAGNOSIS OF [place] 0.06 - 0.50 ng/ml INDETERMINATE: SUGGEST SERIAL STUDIES IF CLINICALLY INDICATED. Greater than 0.5 ng/mL CONSISTENT WITH DIAGNOSIS OF [place] . 21 NO GROWTH AFTER 5 DAYS 22 NO GROWTH AFTER 5 DAYS 23 CALCIUM OXALATE CRYSTALS 24 ADULT MCV GREATER THAN 105 FL INCUBATED 1/2 HR AT 37C WITHOUT SIGNIFICANT CHANGE. 25 Lymphopenia % 1+ Macrocytosis 26 GROUP D ENTEROCOCCUS 75^50-75,000 ORGANISMS/ML (MANY)^CCU 27 50^25-50,000 ORGANISMS/ML (MODERATE)^CCU 28 Anion gap measurement may be of limited value in the presence of any alkalosis, especially in a combined acid base disorder. . 29 Note change in reference range as of 10/16/07. The change was based on recommendations from the [place] [employer]. 30 A metabolite of Naproxen, O-desmethylnaproxen, has been shown to interfere with the Jendrassik-Sheffield method for measuring total bilirubin. Samples from patients who have taken Naproxen have shown spurious elevation in total bilirubin levels. 31 Because ethnic data is not always readily [...] 15-29 5 Kidney failure <15 (or dialysis) 32 CHOLESTEROL INTERPRETATION: Desirable: Less than 200 MG/DL Borderline-High Risk: 200-239 MG/DL High-Risk: 240 MG/DL and over 33 HDL INTERPRETATION: Undesirable: High Risk: Less than 40 MG/DL Desirable: Low Risk: Greater than 60 MG/DL 34 LDL INTERPRETATION: Low Risk Optimal Level: LDL Less than 100 MG/DL Near or Above Optimal: LDL 100-129 MG/DL Borderline High Risk: LDL 130-159 MG/DL High Risk: LDL 160-189 MG/DL Very High Risk: LDL Greater than 189 MG/DL 35 THE URINE SPECIMEN WAS TESTED AT THE LISTED CUTOFFS: DRUG CLASS TEST LEVEL (NG/ML) AMPHETAMINES 300 BARBITUATES 200 BENZODIAZEPINE METABOLITES 200 COCAINE METABOLITES 300 CANNABINOIDS 25 OPIATES 200 PCP 25 THIS IS A SCREENING PROCEDURE. POSITIVE RESULTS ARE NOT CONFIRMED. SPECIMEN WAS RECEIVED WITHOUT CHAIN OF CUSTODY. RESULTS SHOULD BE USED FOR MEDICAL PURPOSES ONLY. . 36 The detection limit for ETHANOL is 10.0 mg/dl . Values less than 10.0 mg/dl cannot be accurately measured. . 37 RESULTS VERIFIED BY REPEAT ANALYSIS ON THE SAME SAMPLE. REPEATED RESULT IS:131/R 38 Anion gap measurement may be of limited value in the presence of any alkalosis, especially in a combined acid base disorder. . 39 Note change in reference range as of 10/16/07. The change was based on recommendations from the [place] [employer]. 40 Please note change in reference range effective 07 . 41 A metabolite of Naproxen, O-desmethylnaproxen, has been shown to interfere with the Jendrassik-Jan method for measuring total bilirubin. Samples from patients who have taken Naproxen have shown spurious elevation in total bilirubin levels. 42 Because ethnic data is not always readily [...] 15-29 5 Kidney failure <15 (or dialysis) 43 The detection limit for ETHANOL is 10.0 mg/dl . Values less than 10.0 mg/dl cannot be accurately measured. . 44 Anion gap measurement may be of limited value in the presence of any alkalosis, especially in a combined acid base disorder. . 45 Note change in reference range as of 10/16/07. The change was based on recommendations from the [place] [employer]. 46 Please note change in [...] 5 Kidney failure <15 (or dialysis) 49 THE URINE SPECIMEN WAS TESTED AT THE LISTED CUTOFFS: DRUG CLASS TEST LEVEL (NG/ML) AMPHETAMINES 300 BARBITUATES 200 BENZODIAZEPINE METABOLITES 200 COCAINE METABOLITES 300 CANNABINOIDS 25 OPIATES 200 PCP 25 THIS IS A SCREENING PROCEDURE. POSITIVE RESULTS ARE NOT CONFIRMED. SPECIMEN WAS RECEIVED WITHOUT CHAIN OF CUSTODY. RESULTS SHOULD BE USED FOR MEDICAL PURPOSES ONLY. . 50 Anion gap measurement may be of limited value in the presence of any alkalosis, especially in a combined acid base disorder. . 51 Note change in reference range as of 10/16/07. The change was based on recommendations from the [place] [employer]. 52 Please note change in reference range effective 07 . 53 A metabolite of Naproxen, O-desmethylnaproxen, has been shown to interfere with the Jendrassik-Sheffield method for measuring total bilirubin. Samples from [...] 5 Kidney failure <15 (or dialysis) 55 CONSISTENT WITH PREVIOUS RESULTS 56 1+ Macrocytosis 57 THE URINE SPECIMEN WAS TESTED AT THE LISTED CUTOFFS: DRUG CLASS TEST LEVEL (NG/ML) AMPHETAMINES 300 BARBITUATES 200 BENZODIAZEPINE METABOLITES 200 COCAINE METABOLITES 300 CANNABINOIDS 25 OPIATES 200 PCP 25 THIS IS A SCREENING PROCEDURE. POSITIVE RESULTS ARE NOT CONFIRMED. SPECIMEN WAS RECEIVED WITHOUT CHAIN OF CUSTODY. RESULTS SHOULD BE USED FOR MEDICAL PURPOSES ONLY. . 58 Anion gap measurement may be of limited value in the presence of any alkalosis, especially in a combined acid base disorder. . 59 Note change in reference range as of 10/16/07. The change was based on recommendations from the [place] [employer]. 60 Please note change in reference range effective 07 . 61 A metabolite of Naproxen, O-desmethylnaproxen, has been shown to interfere with the Jendrassik-Sheffield method for measuring total bilirubin. Samples from patients who have taken Naproxen have shown spurious elevation in total bilirubin levels. 62 Because ethnic data is not always readily [...] 15-29 5 Kidney failure <15 (or dialysis) 63 New Reference Range and Interpretation effective 11/28/2001 TnI (ng/ml) INTERPRETATION Less Than 0.06 ng/mL NOT SUPPORTIVE OF DIAGNOSIS OF [place] 0.06 - 0.50 ng/ml INDETERMINATE: SUGGEST SERIAL STUDIES IF CLINICALLY INDICATED. Greater than 0.5 ng/mL CONSISTENT WITH DIAGNOSIS OF [place] . 64 TOXIC LEVELS: GREATER THAN 150 MCG/ML @ 4HR POST INGEST GREATER THAN 50 MCG/ML @ 12HR POST INGEST The detection limit for ACETAMINOPHEN is 10.0 mcg/ml . Values less than 10.0 mcg/ml cannot be accurately measured. . 65 The detection limit for ETHANOL is 10.0 mg/dl . Values less than 10.0 mg/dl cannot be accurately measured. . 66 The detection limit for SALICYLATE is 4.0 mg/dl. Values less than 4.0 mg/dl cannot be accurately measured. . 67 Anion gap measurement may be of limited value in the presence of any alkalosis, especially in a combined acid base disorder. . 68 Note change in reference range as of 10/16/07. The change was based on recommendations from the [place] [employer]. 69 Please note change in [...] RESULTS 73 Lymphopenia % 1+ Macrocytosis 74 Analyte Specific Reagent This test was developed and its performance characteristics determined by Laboratory Medicine and Pathology, [facility]. This test has not been cleared or approved by the U.S. Food and Drug Administration. Test Performed by: [facility] Dpt of Lab Med and Pathology [address] [place] [address] Water Tender: Moreno Sheets III, M.D. 75 -- REFERENCE VALUE -- <20.0 (Negative) 20.0-30.0 (Weak Positive) >30.0 (Positive) Test Performed by: [facility] Dpt of Lab Med and Pathology [address] [place], [place] [id number] Water Tender: Moreno Sheets III, M.D. 76 -- REFERENCE VALUE -- <20.0 (Negative) 20.0-30.0 (Weak Positive) >30.0 (Positive) Test Performed by: [facility] Dpt of Lab Med and Pathology [address] [place] [address] Water Tender: Moreno Sheets III, M.D. 77 Test Performed by: [facility] Dpt of Lab Med and Pathology [address] [place] [address] Water Tender: Moreno Sheets III, M.D. 78 CHOLESTEROL INTERPRETATION: Desirable: Less than 200 MG/DL Borderline-High Risk: 200-239 MG/DL High-Risk: 240 MG/DL and over 79 HDL INTERPRETATION: Undesirable: High Risk: Less than 40 MG/DL Desirable: Low Risk: Greater than 60 MG/DL 80 UNABLE TO CALCULATE LDL TRIGLYCERIDE IS > 400 81 Anion gap measurement may be of limited value in the presence of any alkalosis, especially in a combined acid base disorder. . 82 Note change in reference range as of 10/16/07. The change was based on recommendations from the [place] [employer]. 83 Please note change in reference range effective 07 . 84 Because ethnic data is not always readily [...] 15-29 5 Kidney failure <15 (or dialysis) 85 CONSISTENT WITH PREVIOUS RESULTS 86 PLEASE NOTE NEW REFERENCE RANGE EFFECTIVE 08. 87 Recommended INR for Patients on Oral Anticoagulants Prophylaxis 2.0 - 3.0 Treatment of thrombosis 2.0 - 3.0 Prevention of embolism 2.0 - 3.0 Prevention of embolism from prosthetic heart valves 2.5 - 3.5 88 ATTENTION EFFECTIVE 07/07/08, THE IMPLEMENTATION OF NEW COAGULATION ANLAYZERS HAS CAUSED A SIGNIFICANT DIFFERENCE FOR PROTIME RESULTS IN SECONDS. THEREFORE, DIAGNOSIS,TREATMENT,AND THERAPY MUST BE BASED ON THE INR VALUE ONLY. Procedures Date Code Description Status 05/30/2018 43808 ECHO Transthorasic Realtime 2D W Doppler & Color Flow Hosp Completed 04/20/2017 72997 Closed Treatment Of Greater Trochanteric Completed 02/04/2017 63712 EKG, Interpretation Only Completed 12/13/2015 80766 Removal Devitalization Tissue Wound Less Than Equal 20 Completed Square CM 12/13/2015 06369 Removal Devitalization Tissue Wound Less Than Equal 20 Completed Square CM 10/18/2015 86588 Debridement Skin,& sq Tissue Completed 09/29/2015 23820 Debridement Skin,& sq Tissue Completed 09/22/2015 32461 Debridement Skin,& sq Tissue Completed 09/22/2015 31143 Debridement Skin,& sq Tissue Completed 08/11/2015 17413 Debridement Skin,& sq Tissue Completed 08/11/2015 72176 Debridement Skin,& sq Tissue Completed 08/11/2015 71027 Removal Devitalization Tissue Wound Less Than Equal 20 Completed Square CM 08/04/2015 66613 Removal Devitalization Tissue Wound Less Than Equal 20 Completed Square CM 08/04/2015 22016 Debridement Skin, Subcutaneous Tissue & Muscle Completed 05/05/2014 36121 ECHO Transthorasic Realtime 2D W Doppler & Color Flow Hosp Completed 04/24/2012 93270 EKG, Interpretation Only Completed 04/11/2012 06006 Closed TX Phalanx finger/thumb shaft w/o manipulation Completed 04/11/2012 21510 Closed TX Phalanx finger/thumb shaft w/o manipulation Completed 04/11/2012 42867 Rad Exam; Hand Limited Completed 04/11/2012 63336 Rad Exam; Fingers Completed 08/02/2011 29243 EKG, Interpretation Only Completed 02/09/2010 93243 EKG Tracing & Interpretation Completed 01/04/2009 54946 Event Monitor/Phys Review/Interp. Completed 12/17/2008 16563 Left Heart Catheterization Completed 12/17/2008 53914 Inj Proc LFT Vent/LFT Atrl Angio Completed 12/17/2008 28853 Coronary Angiography Completed 12/17/2008 74946 S/I/R Inj Proc Vent And Or Atrial Completed 12/17/2008 32513 Selective Coronary Angioplasty Completed 12/09/2008 41871 EKG Tracing & Interpretation Completed 11/29/2008 82700 Stress ECHO Interpretation/Report Hospital Completed 11/29/2008 61505 Treadmill Interp/Report Only Completed 11/29/2008 96720 Stress Test Supervsn W/Out I/R Completed 09/07/2008 03573 ECHO Transthoracic, Real-Time 2D With Doppler And Color Completed Flow 09/01/2008 21243 EKG Tracing & Interpretation Completed 07/20/2008 37057 Holter Monitor Interpretation Completed Encounters Type Date Location Provider Dx Diagnosis Office Visit 05/07/2018 [facility] Sam Castro, J44.1 Chronic obstructive 9:36a Assdevante reardon M.D. pulmonary disease w Hospitalists (acute) exacerbation R07.81 Pleurodynia K70.9 Alcoholic liver disease, unspecified F10.229 Alcohol dependence with intoxication, unspecified Y90.8 Blood alcohol level of 240 mg/100 ml or more E87.8 Oth disorders of electrolyte and fluid balance, [facility] Office Visit 05/06/2018 [facility] Patrizia Reyes, R07.9 Chest pain, 9:36a devante Johns M.D. unspecified Hospitalists J44.1 Chronic obstructive pulmonary disease w (acute) exacerbation F10.229 Alcohol dependence with intoxication, unspecified E87.8 Oth disorders of electrolyte and fluid balance, [facility] Office Visit 05/05/2018 [facility] Patrizia Reyes, R07.9 Chest pain, 9:36a devante Johns M.D. unspecified Hospitalists J44.1 Chronic obstructive pulmonary disease w (acute) exacerbation F10.229 Alcohol dependence with intoxication, unspecified E83.42 Hypomagnesemia K70.9 Alcoholic liver disease, unspecified R07.81 Pleurodynia Office Visit 05/04/2018 [facility] Michele Duke R07.9 Chest pain, 9:35a Assocdevante MD unspecified Hospitalists R06.02 Shortness of breath I95.9 Hypotension, unspecified F10.229 Alcohol dependence with intoxication, unspecified Office Visit 01/07/2018 11:15a Orthopedic Sia Burt, S42.211D Unsp disp fx Services Of Jose Carlos PENA of surg nk of leona siddiqi, subs for fx w routn heal Office Visit 11/26/2017 1:00p Orthopedic Sia Burt, S42.211D Unsp disp fx Services Of Jose Carlos PENA of surg nk of leona siddiqi, subs for fx w routn heal S42.211A Unsp disp fx of surgical neck of right humerus, init Office Visit 11/22/2017 [facility] S42.309A Unsp fracture 9:24a Assoc,devante Abarca, ANESTHESIA ASSISTANT of [place] of Hospitalists humerus, unsp arm, init F10.229 Alcohol dependence with intoxication, unspecified W19.xxxA Unspecified fall, initial encounter E83.42 Hypomagnesemia [facility] S[facility]309[facility] Unsp fracture 9:23a Assocdevante, ANESTHESIA ASSISTANT of shaft of Hospitalists humerus, unsp arm, init J44.9 Chronic obstructive pulmonary disease, unspecified W19.xxxA Unspecified fall, initial encounter F10.229 Alcohol dependence with intoxication, unspecified [facility] I95.9 Hypotension, 9:23a Assoc,devante STREETER M.D. unspecified Hospitalists E87.1 Hypo-osmolality and hyponatremia E87.6 Hypokalemia J44.9 Chronic obstructive pulmonary disease, unspecified F10.229 Alcohol dependence with intoxication, unspecified Office Visit 11/08/2017 9:30a Orthopedic Sia Burt, S42.211A Unsp disp fx of Services Of MD iglesias neck Jose Carlos of right humerus, init F10.239 Alcohol dependence with withdrawal, unspecified S42.211D Unsp disp fx of surg nk of leona siddiqi, subs for fx w routn heal Office Visit 10/31/2017 Lucille Burt, S42.211A Unsp disp fx of 11:00a Services Of Jose Carlos PENA surgical neck of right humerus, init Office Visit [facility] J[facility].1 Chronic 1:38p Assocdevante M.D. obstructive Hospitalists pulmonary disease w (acute) exacerbation F10.239 Alcohol dependence with withdrawal, unspecified R10.11 Right upper quadrant pain Office Visit 10/14/2017 1:38p [facility] R10.9 Unspecified Assocdevante M.D. abdominal pain Hospitalists E87.2 Acidosis J44.9 Chronic obstructive pulmonary disease, unspecified F10.20 Alcohol dependence, uncomplicated Office Visit 10/13/2017 [facility] R10.9 Unspecified 1:37p Assdevante reardon II, M.D. abdominal pain Hospitalists J44.9 Chronic obstructive pulmonary disease, unspecified F10.20 Alcohol dependence, uncomplicated Office Visit 04/22/2017 9:51a [facility] Carolyn Ramirez, S72.114A Nondisp fx of Assoc,devante N.PYajaira greater Hospitalists trochanter of right femur, init F10.920 Alcohol use, unspecified with intoxication, uncomplicated E87.6 Hypokalemia E83.42 Hypomagnesemia Office Visit 04/21/2017 [facility] S72.114A Nondisp fx of 9:50a Assoc,devante Funes, EDER greater Hospitalists trochanter of right femur, init F10.920 Alcohol use, unspecified with intoxication, uncomplicated E87.6 Hypokalemia E83.42 Hypomagnesemia Office Visit 04/20/2017 [facility] S72.114A Nondisp fx of 9:48a Assdevante reardon, EDER greater Hospitalists trochanter of right femur, init F10.920 Alcohol use, unspecified with intoxication, uncomplicated E87.6 Hypokalemia Office Visit 04/19/2017 [facility] S72.114A Nondisp fx of 9:46a Assocdevante II, M.D. greater Hospitalists trochanter of right femur, init F10.920 Alcohol use, unspecified with intoxication, uncomplicated E87.6 Hypokalemia E83.42 Hypomagnesemia Office Visit 02/11/2017 7:48a [facility] Michael K56.609 Unsp intestnl Assdevante reardon M.D. obst, unsp as Hospitalists to partial versus complete obst J44.9 Chronic obstructive pulmonary disease, unspecified F10.10 Alcohol abuse, uncomplicated I10 Essential (primary) hypertension Office Visit 02/10/2017 7:47a [facility] K56.609 Unsp intestnl Assoc,devante Terry M.D. obst, unsp as Hospitalists to partial versus complete obst J44.9 Chronic obstructive pulmonary disease, unspecified I10 Essential (primary) hypertension F10.10 Alcohol abuse, uncomplicated Office Visit 02/09/2017 7:47a [facility] K56.609 Unsp intestnl Assoc,devante Terry M.D. obst, unsp as Hospitalists to partial versus complete obst J44.9 Chronic obstructive pulmonary disease, unspecified F10.10 Alcohol abuse, uncomplicated I10 Essential (primary) hypertension Office Visit 02/08/2017 7:46[facility] K56.609 Unsp intestnl Assoc,devante Santa M.D. obst, unsp as Hospitalists to partial versus complete obst J44.9 Chronic obstructive pulmonary disease, unspecified I10 Essential (primary) hypertension F10.10 Alcohol abuse, uncomplicated Office Visit 02/07/2017 7:44a [facility] R10.84 Generalized Assocdevante M.D. abdominal pain Hospitalists J44.9 Chronic obstructive pulmonary disease, unspecified F10.10 Alcohol abuse, uncomplicated I10 Essential (primary) hypertension Office Visit 02/07/2017 7:00a Dex Garcia R18.8 Other ascites [facility], EDER K56.7 Ileus, unspecified Office Visit 02/06/2017 7:43a [facility] R10.84 Generalized Assocdevante M.D. abdominal pain Hospitalists J44.9 Chronic obstructive pulmonary disease, unspecified F10.10 Alcohol abuse, uncomplicated Office Visit 02/05/2017 7:42a [facility] K56.609 Unsp intestnl Assoc,devante Santa M.D. obst, unsp as Hospitalists to partial versus complete obst J44.9 Chronic obstructive pulmonary disease, unspecified F10.10 Alcohol abuse, uncomplicated I10 Essential (primary) hypertension Office Visit 02/04/2017 7:42a [facility] R10.84 Generalized Assocdevante M.D. abdominal pain Hospitalists J44.9 Chronic obstructive pulmonary disease, unspecified F10.10 Alcohol abuse, uncomplicated Office Visit 02/03/2017 [facility] R10.84 Generalized 7:41a Assoc, Marcelo, N.P. abdominal pain Hospitalists J44.9 Chronic obstructive pulmonary disease, unspecified F10.10 Alcohol abuse, uncomplicated I10 Essential (primary) hypertension Office Visit 11/04/2016 [facility] Bryan Presley R06.02 Shortness of 9:35a Assoc, Eriberto STREETER breath Hospitalists E87.8 Ot disorders of electrolyte and fluid balance, NEC F10.929 Alcohol use, unspecified with intoxication, unspecified I10 Essential (primary) hypertension Office Visit 09/23/2016 4:10p [facility] Anna Cleveland E87.6 Hypokalemia Assoc, Hospitalists D.O. E83.42 Hypomagnesemia R22.0 Localized swelling, mass and lump, head F10.10 Alcohol abuse, uncomplicated Office Visit 09/22/2016 4:09p [facility] Anna Cleveland E87.6 Hypokalemia Assoc, Hospitalists D.O. E83.42 Hypomagnesemia R22.0 Localized swelling, mass and lump, head F10.10 Alcohol abuse, uncomplicated Office Visit 09/21/2016 4:08p [facility] Anna Cleveland E87.6 Hypokalemia Ass, Hospitalists D.O. E83.42 Hypomagnesemia R22.0 Localized swelling, mass and lump, head F10.10 Alcohol abuse, uncomplicated Office 06/26/2016 [facility] Hans J44.1 Chronic Visit 12:43p Assoc, LYNDSAY Earl obstructive Hospitalists pulmonary disease w (acute) exacerbation F10.10 Alcohol abuse, uncomplicated F41.9 Anxiety disorder, unspecified F32.9 Major depressive disorder, single episode, unspecified [facility] 12:42p Assoc,pc Marcelo N.PYajaira obstructive Hospitalists pulmonary disease w (acute) exacerbation F10.10 Alcohol abuse, uncomplicated F41.9 Anxiety disorder, unspecified F32.9 Major depressive disorder, single episode, unspecified Office Visit 01/26/2016 3:56p [facility] Eliseo Olsno L97.223 [facility] Eriberto Smalls 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 Office Visit 10/13/2015 8:34a Wound Care Eliseo GirmaYajaira L97.223 Non-pressure Center AT [facility] [place] Eriberto 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 the skin and Hospitalists subcutaneous tissue, unsp T14.8 Other injury of unspecified body region J44.9 Chronic obstructive pulmonary disease, unspecified F41.9 Anxiety disorder, unspecified Office Visit 08/28/2015 1:05p [facility] Stevie L08.9 Local infection of Assdevante reardon M.D. the skin and Hospitalists subcutaneous tissue, unsp T14.8 Other injury of unspecified body region J44.9 Chronic obstructive pulmonary disease, unspecified F41.9 Anxiety disorder, unspecified Office Visit 08/27/2015 1:05p [facility] Stevie L08.9 Local infection of Assdevante reardon M.D. the skin and Hospitalists subcutaneous tissue, unsp T14.8 Other injury of unspecified body region J44.9 Chronic obstructive pulmonary disease, unspecified F41.9 Anxiety disorder, unspecified Office Visit 08/26/2015 1:42p [facility] Arvind Machado L97.929 Non- prs Infectious Eriberto Boles chronic ulc Diseases unsp prt of l low leg w unsp severity L03.116 Cellulitis of left lower limb M60.062 Infective myositis, left lower leg Office Visit 08/26/2015 1:04p [facility] Anna L08.9 Local infection of Assoc,devante Cleveland D.O. the skin and Hospitalists subcutaneous tissue, unsp T14.8 Other injury of unspecified body region J44.9 Chronic obstructive pulmonary disease, unspecified F41.9 Anxiety disorder, unspecified Office Visit 08/25/2015 1:03p [facility] Anna L08.9 Local infection of Assdevante reardon D.O. the skin and Hospitalists subcutaneous tissue, [facility] T14.8 Other injury of unspecified body region J44.9 Chronic obstructive pulmonary disease, unspecified F41.9 Anxiety disorder, unspecified Office Visit 08/25/2015 1:38p [facility] Elías Machado L03.116 Cellulitis of For Ernesto Boles M.D. left lower limb Diseases M86.162 Other acute osteomyelitis, left tibia and fibula J44.9 Chronic obstructive pulmonary disease, unspecified Office Visit 08/24/2015 [facility] Eber T14.8 Other injury of 1:02p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
[2018-06-18 19:57] LABS: ABS Basophils 0 10^3/ul (0-0.2); ABS Eosinophils 0 10^3/ul (0-0.6); ABS Monocytes 0.5 10^3/ul (0-0.8); ABS Neutrophils 2.7 10^3/ul (1.5-7.7); ABS Nucleated RBC 0 10^3/ul; Hematocrit 35 % (33-41); Hemoglobin 12.1 g/dL (12.0-16.0); Lymphocyte % 23.3 %; Mean Corpuscular HGB Conc 34 g/dL (31-36); Mean Corpuscular Hemoglobin 41 pg (27-31); Mean Corpuscular Volume 120 fL (80-97); Mean Platelet Volume 6.9 fL (7.4-10.4); Nucleated Red Blood Cells % 0.1; Platelet Count 116 10^3/uL (150-450); Red Blood Count 2.94 10^6 /uL (3.70-4.87); Red Cell Distribution Width 15 % (10.5-15); White Blood Count 4.4 10^3/uL (3.5-10.8)
[2018-06-18 20:00] LABS: INR 1.25 (0.82-1.09)
[2018-06-18 20:22] LABS: Albumin 3.4 g/dL (3.2-5.2); Albumin/Globulin Ratio 1.5 (1-3); BUN/Creatinine Ratio 11.4 (8-20); Calcium 8.7 mg/dL (8.6-10.3); EGFR African American 224.7 (>60); EGFR Non-African American 185.7 (>60); Globulin 2.2 g/dL (2-4); Potassium 3.7 mmol/L (3.5-5.0); Total Protein 5.6 g/dL (6.4-8.9)
[2018-06-18] MEDS ORDERED: Bacitracin OINTMENT* 0.5% 0.5 oz TUBE TOPICAL ONE (21:01)
[2018-06-18] MEDS ORDERED: Acetaminophen TAB* 325 MG PO ONE (21:01)
[2018-06-18 21:40] LABS: Magnesium 1.4 mg/dL (1.9-2.7)
[2018-06-18] MEDS ORDERED: Albuterol 2.5 MG/3 ML NEB.SOL* (0.083%) INH PRN (22:50)
[2018-06-18] MEDS ORDERED: Acetaminophen TAB* 325 MG PO PRN (22:50)
[2018-06-18] MEDS ORDERED: LORazepam TAB(*) 0.5 MG PO PRN (22:54)
[2018-06-18] MEDS ORDERED: Albuterol HFA INHALER* 8 gm MDI INH PRN (22:54)
[2018-06-18] MEDS ORDERED: Magnesium Sulfate IV* 3 GM in NS 0.9% 100 ML* 100 ML IVPB ONE (22:57)
[2018-06-18] MEDS ORDERED: Thiamine IV* 100 MG, Folic Acid IV* 1 MG, Multiple Vitamin IV ADULT* 10 ML in NS 0.9% 1... IV ONE (22:58)
[2018-06-18] MEDS ORDERED: NS 0.9% 1000 ML** 1,000 ML IV ONE (23:32)
[2018-06-18] MEDS ORDERED: LORazepam TAB(*) 1 MG PO SCH (23:45)
[2018-06-19] MEDS ORDERED: Lorazepam PYXIS KEY ONE (00:06)
--- NOTE | 2018-06-19 01:25 | HP ---
CC: Dorcas Chan NP; Dr. Arias; Dr. Burt* ADMISSION HISTORY AND PHYSICAL: DATE OF ADMISSION: 06/18/18 PROVIDER: Lizeth Abarca NP PRIMARY CARE PROVIDER: Dorcas Chan NP ATTENDING PHYSICIAN WHILE IN THE HOSPITAL: Dr. Selene Grissom* (dictated by Lizeth Abarca NP). CHIEF COMPLAINT: Fall. HISTORY OF PRESENT ILLNESS: Ms. Bland is a 68-year-old female with chronic alcohol abuse, history of COPD, carotid artery stenosis, angina, seizure disorder, hypertension, anxiety, depression, PTSD, IBS, and osteoarthritis, who presented to the emergency room after a fall at home. The patient was recently admitted in the beginning of May 2018 again with fall and alcohol intoxication. The patient does report that she has multiple falls at home and that her gait is unsteady. Today, she reports that she was drinking and lost her balance falling, striking her right arm. She does have a preexisting right humerus fracture. She was also seen by Dr. Arias today for the humerus fracture. The patient reports that she fell while cooking supper this afternoon. She does report that she was drinking alcohol today. She reports that she had 2 gin and soda drinks and 4 cigarettes today. Her alcohol level on admission was 308. Due to her recent fall and alcohol intoxication, we were asked to see and evaluate her for admission. PAST MEDICAL HISTORY: 1. COPD. 2. Carotid artery stenosis. 3. Angina. 4. Seizure disorder. 5. Alcoholism. 6. Hypertension. 7. Anxiety. 8. Depression. 9. PTSD. 10. IBS. 11. Osteoarthritis. PAST SURGICAL HISTORY: 1. Left carotid endarterectomy. 2. Tonsillectomy. 3. Appendectomy. 4. . HOME MEDICATIONS: Include: 1. Dulera 2 puffs inhaled 2 times daily. 2. Tylenol 650 mg as needed for pain. 3. Albuterol ProAir 108 mcg inhaled q.4 hours as needed for shortness of breath. 4. Potassium 20 mEq p.o. b.i.d. 5. Zofran 4 mg p.o. t.i.d. as needed for nausea. 6. Zantac 150 mg p.o. b.i.d. 7. Vitamin D3 2000 units p.o. daily. 8. B complex 1 tab p.o. daily. 9. Boost High Protein daily. 10. Pedialyte 4 ounces p.o. daily. 11. Furosemide 20 mg p.o. monthly p.r.n. 12. Multivitamin 1 tab p.o. daily. 13. Spiriva 1 cap inhaled p.o. daily. 14. Lorazepam 0.5 to 1 mg p.o. b.i.d. 15. Naproxen 500 mg p.o. q.12 hours p.r.n. 16. She does take Seroquel 50 to 100 mg at bedtime. 17. Magnesium oxide 400 mg p.o. in the a.m. ALLERGIES: The patient has allergy to: 1. DOXYCYCLINE. 2. GABAPENTIN. 3. PREDNISONE. FAMILY HISTORY: Mother with a history of dementia, alive and currently living at [facility]. Father with a history of hypertension, coronary artery disease with bypass surgery and colon cancer which is in remission. He is currently still living and resides at [facility]. SOCIAL HISTORY: The patient reports that she smokes approximately 1 pack per day. She drinks alcohol daily, liquor, wine, or beer. She reports that she usually has 3 drinks daily. Denies any illicit drug use. She lives alone. The patient reports that she does not have healthcare proxy and does not have anyone appointed to make decisions for her. She reports that she will discuss with her brothers in her upcoming meeting. She has 2 children, 1 is a paraplegic after an MVA and reports that her other child is unable to make decisions for her. She does have 6 brothers and sisters. REVIEW OF SYSTEMS: She does complain of some right upper arm pain. She does complain of skin tear to her right elbow. She denies any dizziness or loss of consciousness. She denies any headaches. She denies any cough, hemoptysis, or shortness of breath. Denies any chest pain. Denies any nausea, vomiting, or diarrhea. Denies any focal weakness or sensory loss. She denies any urinary frequency or urgency. Denies any dysphagia, arthralgias, myalgias, rashes. She does report a skin tear to her right elbow. Denies any depression or anxiety. PHYSICAL EXAMINATION GENERAL: At this time, Ms. Bland is alert, sitting on the stretcher in the emergency room. She appears frail and unkempt. VITAL SIGNS: Blood pressure 97/64, heart rate is 84, respirations are 18, temperature 97.7. HEENT: Head is atraumatic, normocephalic. Pupils are equal and reactive. Dentition is poor. She does have some lip smacking. NECK: Supple and nontender. LUNGS: Diminished with expiratory wheezes bilaterally. CHEST: She does have some ecchymosis noted to her right breast. CARDIAC: S1, S2. Regular rate and rhythm. No murmurs, rubs, or gallops. ABDOMEN: Soft and nontender. Bowel sounds are present x4. MUSCULOSKELETAL: There is no clubbing or cyanosis. She does have limited range of motion to her right upper extremity. Radial pulses intact. Cap refill is intact. She has a skin tear noted to the right elbow and ecchymosis noted to the upper arm with significant deformity. NEUROLOGIC: Although the patient has a blood alcohol level of 308, she appears appropriate and has no neurologic deficits. She is able to follow commands and answers questions appropriately. She does report understanding of risks if she should leave and is agreeable at this time to stay overnight. Her speech is clear. Her thought process is intact. There are no gross focal deficits noted. PSYCHIATRIC: She is cooperative and appropriate. DIAGNOSTIC STUDIES/LAB DATA: WBCs 4.4, RBCs 2.94, hemoglobin 12.1, hematocrit was 35, platelet count was 116. INR was 1.25. Sodium 132, potassium 3.7, chloride 96, carbon dioxide was 24, anion gap was 12, BUN was 4, creatinine 0.35 , magnesium was 1.4. ASTs were 52, ALTs were 16, alkaline phosphatase was 17. Serum alcohol was 308. The patient had a CT of the brain, radiologist's impression: No acute intracranial or significant mass effect. She had a CT of the C-spine, radiologist's impression: No acute cervical spine fracture. She did have an x-ray of her right shoulder which does show a comminuted humerus fracture which is chronic. There is no appreciable elbow or wrist fractures noted. ASSESSMENT AND PLAN: Ms. Bland is a 68-year-old female with a past medical history significant for chronic obstructive pulmonary disease, carotid artery stenosis, angina, seizure disorder, alcoholism, hypertension, anxiety, depression, posttraumatic stress disorder, irritable bowel syndrome, and osteoarthritis, who presented to the emergency room after a fall at home, after the patient reporting that she was drinking today and lost her balance and fell in the kitchen while she was making dinner. She will be admitted for under observation for: 1. Status post fall. The patient will be monitored on telemetry. She will get a full assessment with PT evaluation. I suspect that her fall is related to alcohol intoxication as her blood alcohol level is 308 on admission to the emergency room, although the patient is alert and oriented with that blood alcohol level. 2. History of right humerus fracture. The patient was seen and evaluated at Dr. Arias office today and the patient reports that she was advised that she will need pins and rods placed in her right upper arm. We may need to touch base with Orthopedics for any other further recommendations. 3. Chronic alcoholism. The patient will receive a banana bag in the emergency room. Her current alcohol level is 308. She will be placed on WAM protocol with Ativan, multivitamin, and folate. 4. Hypomagnesium. The patient's magnesium level is 1.4 on admission. She will be given 3 g of magnesium IV and continued on magnesium oxide 400 mg p.o. daily. We will repeat mag level in the morning. 5. Tobacco abuse disorder with chronic chronic obstructive pulmonary disease. The patient will continue on home inhalers as previously prescribed. She can have albuterol nebulizer as needed for shortness of breath. 6. Diet: She can have a regular diet. 7. DVT prophylaxis: I will place her on SCDs as the patient continues to have multiple falls and is at a high risk of bleeding. 8. Code status: The patient is a full code. TIME SPENT: Time spent on this admission was 60 minutes, greater than half that time was spent at the bedside reviewing the events leading thus far to her hospitalization, performing my physical exam, and reviewing my plan of care. I have discussed this with my attending, Dr. Selene Grissom, she is in agreement with my plan. LIZETH ABARCA, ELECTRONIC TECHNICIAN [id number]/[facility] #: [id number] [place]
[2018-06-19] MEDS: Nystatin TOP POWDER* 15 GM BTL TOPICAL SCH ×2 (03:28→10:59)
--- NOTE | 2018-06-19 04:24 | ED ---
Upper Extremity Pain - HPI Summary HPI Summary: 68-year-old female presents from home by EMS after a fall where she injured her right arm. The right arm was previously fractured in several places and she was seen actually today by the orthopedist for this. She was seen in the ER yesterday and discharged today for a another fall associated with heavy drinking. She admits to only 2 drinks today prior to falling. She states she did not hit her head or lose consciousness to the best of her knowledge. EMS found her apartment to have extremely poor living conditions. Patient's able to provide only a limited history due to her intoxication. - History of Current Complaint Chief Complaint: EDFall Stated Complaint: FALL/RT ARM LAC Time Seen by Provider: 06/18/18 19:24 Hx Obtained From: Patient, EMS - Allergies/Home Medications Allergies/Adverse Reactions: Allergies Allergy/AdvReac Type Severity Reaction Status Date / Time doxycycline Allergy Intermediate Swelling Verified 06/17/18 21:43 gabapentin Allergy Intermediate Swelling Verified 06/17/18 21:43 prednisone AdvReac made Verified 06/17/18 21:43 patient feel "wired" Home Medications: Home Medications Albuterol inh POWDER (NF) [Proair Respiclick] 1 puff INH Q4H PRN 06/18/18 [ History Confirmed 06/18/18] Cyanocobalamin INJ * [Vitamin B12 INJ *] 1,000 mcg IM MONTHLY 06/18/18 [History Confirmed 06/18/18] Vitamin B Complex CAP* [B Complex CAP*] 1 cap PO DAILY 06/18/18 [History Confirmed 06/18/18] PMH/Surg Hx/FS Hx/Imm Hx Endocrine/Hematology History: Reports: Hx Anemia - macrocytic anemia Denies: Hx Anticoagulant Therapy, Hx Blood Disorders, Hx Blood Transfusions, Hx Bone Marrow Disease, Hx Diabetes, Hx Systemic Lupus Erythematosus, Hx Sickle Cell Disease, Hx Thyroid Disease, Hx Unexplained Bleeding, Other Endocrine/ Hematological Disorders Cardiovascular History: Reports: Hx Angina, Hx Coronary Artery Disease - left carotid artery surgery, Hx Hypercholesterolemia, Hx Hypertension, Other Cardiovascular Problems/Disorders - carotid endarterectomy, peripheral arterial occlusive disease Denies: Hx Aneurysm, Hx Angioplasty, Hx Auto Implanted Cardiovert Defib, Hx Cardiac Arrest, Hx Cardiomegaly, Hx Congenital Heart Disease, Hx Congestive Heart Failure, Hx Deep Vein Thrombosis, Hx Embolism, Hx Hypotension, Hx Pacemaker/ICD, Hx Peripheral Vascular Disease, Hx Rheumatic Fever, Hx Syncope, Hx Valvular Heart Disease Respiratory History: Reports: Hx Chronic Bronchitis, Hx Chronic Obstructive Pulmonary Disease (COPD), Hx Pneumonia, Other Respiratory Problems/Disorders - SMOKER Denies: Hx Asthma, Hx Cystic Fibrosis, Hx Lung Cancer, Hx Pleural Effusion, Hx Pulmonary Edema, Hx Pulmonary Embolism, Hx Seasonal Allergies, Hx Sleep Apnea GI History: Reports: Hx Gastroesophageal Reflux Disease - prn, Hx Irritable Bowel, Hx Ulcer, Other GI Disorders - adhesions Denies: Hx Cirrhosis, Hx Crohn's Disease, Hx Diverticulosis, Hx Gall Bladder Disease, Hx Gastrointestinal Bleed, Hx Hiatal Hernia, Hx Jaundice, Hx Obstructive Bowel, Hx Ileostomy, Hx Pyloric Stenosis History: Reports: Other Problems/Disorders - hx of UTI Denies: Hx Acute Renal Failure, Hx Benign Prostatic Hyperplasia, Hx Chronic Renal Failure, Hx Dialysis, Hx Kidney Infection, Hx Kidney Stones, Hx Renal Disease Musculoskeletal History: Reports: Hx Arthritis - osteo arthritis, osteoporosis, Hx Orthopedic Injury - broken fingers, Other Musculoskeletal History - Past injury to R hand, herniated disks Denies: Hx Back Problems, Hx Bursitis, Hx Congenital Bone Abnormalities, Hx Fibromyalgia, Hx Gout, Hx Osteoporosis, Hx Scoliosis, Hx Tendonitis Sensory History: Reports: Hx Cataracts - both, Hx Contacts or Glasses, Hx Vision Problem, Other Sensory Impairments - floaters Denies: Hx Eye Injury, Hx Eye Prosthesis, Hx Glaucoma, Hx Macular Degeneration, Hx Deafness, Hx Hearing Aid, Hx Hearing Problem Opthamlomology History: Reports: Hx Cataracts - both, Hx Contacts or Glasses, Hx Vision Problem, Other Sensory Impairments - floaters Denies: Hx Eye Injury, Hx Eye Prosthesis, Hx Glaucoma, Hx Macular Degeneration Neurological History: Reports: Hx Headaches - rarely, Hx Seizures - x1 6 years ago at [facility]- none since, Hx Spinal Cord Injury - Herniated disks, Other Neuro Impairments/Disorders - multiple concussions Denies: Hx Dementia, Hx Developmental Delay, Hx Migraine, Hx Transient Ischemic Attacks (TIA) Psychiatric History: Reports: Hx Anxiety - PTSD, Hx Depression - depressive disorder, Hx Panic Disorder - PTSD, Hx Post Traumatic Stress Disorder, Hx Inpatient Treatment, Hx Community Mental Health Tx, Hx Suicide Attempt, Hx Substance Abuse, Other Psychiatric Issues/Disorders Denies: Hx Attention Deficit Hyperactivity Disorder, Hx Eating Disorder, Hx Schizophrenia, Hx Bipolar Disorder, Hx of Violent Episodes Against Others - Surgical History Surgery Procedure, Year, and Place: TONSILECTOMY ; APPENDECTOMY; X2 ; TUBAL LIGATION; CAROTID ENDERECTOMY (NO STENTINGS) Hx Anesthesia Reactions: Yes - ETHER CAUSED VOMITING - Immunization History Date of Tetanus Vaccine: PT STATES UNSURE Date of Influenza Vaccine: NONE Infectious Disease History: No Infectious Disease History: Denies: Hx Clostridium Difficile, Hx Hepatitis, Hx Human Immunodeficiency Virus (HIV), Hx Shingles, Hx Tuberculosis, Traveled Outside the [place] in Last 30 Days - Family History Known Family History: Positive: Cardiac Disease - Father, Other - father - colon ca, h/o ETOH abuse; mom- alzheimer's dz - Social History Lives: Alone Alcohol Use: Daily Alcohol Amount: 2 beers/day Hx Substance Use: No Substance Use Type: Reports: None Substance Use Comment - Amount & Last Used: pt aware of mental & physical risks of etoh, not willing/ready to change Hx Tobacco Use: Yes Smoking Status (MU): Light Every Day Tobacco Smoker Type: Cigarettes Amount Used/How Often: 1/2 pack/day Have You Smoked in the Last Year: Yes Review of Systems Negative: Fever Negative: Blurred Vision Negative: Chest Pain Negative: Shortness Of Breath Negative: Abdominal Pain, Vomiting, Nausea Positive: Arthralgia, Decreased ROM Negative: Headache, Weakness, Numbness All Other Systems Reviewed And Are Negative: Yes Physical Exam Vital Signs On Initial Exam: Initial Vitals Temp Pulse Resp BP Pulse Ox 97.6 F 78 18 81/54 98 06/18/18 19:15 06/18/18 19:15 06/18/18 19:15 06/18/18 19:15 06/18/18 19:15 Appearance: Negative: Well-Appearing - Slurring of words and appears intoxicated. Smells of alcohol. Uncomfortable with any motion in the right upper extremity. Skin: Positive: Other - Large skin tear in the area of the radial elbow, bleeding controlled. Several bruises of various ages throughout her body. Eyes: Positive: EOMI ENT: Positive: Hearing grossly normal, Pharynx normal Neck: Positive: Supple, Nontender Respiratory/Lung Sounds: Positive: Clear to Auscultation Cardiovascular: Positive: RRR Abdomen Description: Positive: Nontender, Soft Musculoskeletal: Positive: Other - Gross deformity of the proximal humerus on the right. Superficial tenderness of the elbow but ranges the elbow and wrist without pain or crepitance. Neurological: Positive: Other - Slurring her words but alert and oriented. Right upper extremity is neurovascularly intact. Psychiatric: Positive: Other - Apparent intoxication, smells of alcohol AVPU Assessment: Alert Diagnostics - Vital Signs Vital Signs Temp Pulse Resp BP Pulse Ox 06/18/18 22:09 88 84 06/18/18 21:54 87 97/64 99 06/18/18 21:51 81 77/59 100 06/18/18 21:41 87 80/62 98 06/18/18 21:39 82 97 06/18/18 19:57 83 94/71 96 06/18/18 19:28 86 102/62 98 06/18/18 19:27 76 95 06/18/18 19:15 97.6 F 78 18 81/54 98 - Laboratory Lab Results: Lab Results 06/18/18 06/18/18 06/18/18 Range/Units 19:49 19:49 19:49 WBC 4.4 (3.5-10.8) 10^3/uL RBC 2.94 L (3.70-4.87) 10^6 /uL Hgb 12.1 (12.0-16.0) g/dL Hct 35 (33-41) % MCV 120 H (80-97) fL MCH 41 H (27-31) pg MCHC 34 (31-36) g/dL RDW 15 (10.5-15) % Plt Count 116 L (150-450) 10^3/uL MPV 6.9 L (7.4-10.4) fL Neut % (Auto) 63.0 % Lymph % (Auto) 23.3 % [place] % (Auto) 12.1 % Eos % (Auto) 1.0 % Baso % (Auto) 0.6 % Absolute Neuts (auto) 2.7 (1.5-7.7) 10^3/ul Absolute Lymphs (auto) 1.0 (1.0-4.8) 10^3/ul Absolute Monos (auto) 0.5 (0-0.8) 10^3/ul Absolute Eos (auto) 0 (0-0.6) 10^3/ul Absolute Basos (auto) 0 (0-0.2) 10^3/ul Absolute Nucleated RBC 0 10^3/ul Nucleated RBC % 0.1 INR (Anticoag Therapy) 1.25 H (0.82-1.09) Sodium 132 L (135-145) mmol/L Potassium 3.7 (3.5-5.0) mmol/L Chloride 96 L (101-111) mmol/L Carbon Dioxide 24 (22-32) mmol/L Anion Gap 12 H (2-11) mmol/L BUN 4 L (6-24) mg/dL Creatinine 0.35 L (0.51-0.95) mg/dL Est GFR ( Amer) 224.7 (>60) Est GFR (Non-Af Amer) 185.7 (>60) BUN/Creatinine Ratio 11.4 (8-20) Glucose 76 (70-100) mg/dL Calcium 8.7 (8.6-10.3) mg/dL Magnesium 1.4 L (1.9-2.7) mg/dL Total Bilirubin 1.00 (0.2-1.0) mg/dL AST 52 H (13-39) U/L ALT 16 (7-52) U/L Alkaline Phosphatase 117 H (34-104) U/L Total Protein 5.6 L (6.4-8.9) g/dL Albumin 3.4 (3.2-5.2) g/dL Globulin 2.2 (2-4) g/dL Albumin/Globulin Ratio 1.5 (1-3) Serum Alcohol 308 H (<10) mg/dL Result Diagrams: 06/18/18 19:49 06/18/18 19:49 Lab Statement: Any lab studies that have been ordered have been reviewed, and results considered in the medical decision making process. - Radiology right elbow Radiology Interpretation Completed By: ED Physician - Periosteal reaction may be from remote fracture right shoulder Radiology Interpretation Completed By: ED Physician - Extensive old appearing proximal humerus fracture right wrist Radiology Interpretation Completed By: ED Physician - No acute fracture - CT CT head and C-spine CT Interpretation Completed By: Radiologist - No acute fracture, no acute intercranial pathology Course/Dx - Course Course Of Treatment: Nurse's notes reviewed. The patient was placed in a sling and her skin tear was dressed. She was treated for pain. She is intoxicated with an alcohol over 300. The patient has several social issues and her alcoholism causing unsafe living conditions at home. She is currently unable to refuse admission due to her intoxication. This was confirmed by the boiler house inspector. The patient will be admitted to the hospitalist service to be reevaluated by orthopedics, social work/case management. - Diagnoses Differential Diagnosis/HQI/PQRI: Positive: Contusion, Fracture (Closed), Hematoma, Strain, Sprain Provider Diagnoses: Alcohol abuse, Alcohol intoxication, Skin tear, Multiple falls, Multiple fractures - Physician Notifications Discussed Care of Patient With: Selene Grissom - states patient does not wish to be admitted. Later admits - Critical Care Time Critical Care Time: 30-74 min - Critical care time is exclusive of separately billable procedures and includes multiple calls with hospitalist, nursing cereal supervisor. Discharge - Sign-Out/Discharge Documenting (check all that apply): Patient Departure Patient Received Moderate/Deep Sedation with Procedure: No - Discharge Plan Condition: Fair Disposition: ADMITTED TO [facility] - Billing Disposition and Condition Condition: FAIR Disposition: Admitted to [facility] - Attestation Statements Document Initiated by Scribe: No
[2018-06-19 06:55] LABS: ABS Basophils 0 10^3/ul (0-0.2); ABS Eosinophils 0.1 10^3/ul (0-0.6); ABS Lymphocytes 0.6 10^3/ul (1.0-4.8); ABS Monocytes 0.4 10^3/ul (0-0.8); ABS Neutrophils 2.6 10^3/ul (1.5-7.7); ABS Nucleated RBC 0 10^3/ul; Eosinophil % 2.2 %; Hematocrit 34 % (33-41); Hemoglobin 11.8 g/dL (12.0-16.0); Lymphocyte % 16.8 %; Mean Corpuscular HGB Conc 35 g/dL (31-36); Mean Corpuscular Hemoglobin 41 pg (27-31); Mean Corpuscular Volume 120 fL (80-97); Mean Platelet Volume 7.3 fL (7.4-10.4); Nucleated Red Blood Cells % 0.1; Platelet Count 105 10^3/uL (150-450); Red Blood Count 2.84 10^6 /uL (3.70-4.87); Red Cell Distribution Width 15 % (10.5-15); White Blood Count 3.8 10^3/uL (3.5-10.8)
[2018-06-19 07:11] LABS: BUN/Creatinine Ratio 9.7 (8-20); Calcium 8.1 mg/dL (8.6-10.3); EGFR African American 258.5 (>60); EGFR Non-African American 213.7 (>60); Magnesium 1.9 mg/dL (1.9-2.7); Potassium 3.4 mmol/L (3.5-5.0)
[2018-06-19] MEDS ORDERED: Multivitamins/Minerals TAB PO SCH (09:00)
[2018-06-19] MEDS ORDERED: Magnesium Oxide TAB* 400 MG PO SCH (09:00)
[2018-06-19] MEDS ORDERED: Folic Acid TAB* 1 MG PO SCH (09:00)
[2018-06-19] MEDS ORDERED: Thiamine TAB* 100 MG TAB PO SCH (09:00)
[2018-06-19] MEDS ORDERED: Mometasone/Formoter 200/5 MDI INH SCH (09:00)
[2018-06-19] MEDS ORDERED: Pantoprazole TAB * 40 MG TAB PO SCH (09:00)
[2018-06-19] MEDS ORDERED: Potassium Chlor TAB* 20 MEQ TAB.ER PO SCH (09:00)
[2018-06-19] MEDS ORDERED: Tiotropium CAP.INH* CAP.INH/18 MCG (USE ORDER SET !) INH SCH (09:00)
[2018-06-19] MEDS ORDERED: Spiriva Inhaler DEVICE* 1 EACH DEVICE INH ONE (09:00)
[2018-06-19] MEDS ORDERED: Artificial Tears* 15 ML BTL BOTH EYES PRN (10:30)
[2018-06-19 12:45] VITALS: BP 100/71
[2018-06-19] MEDS ORDERED: QUEtiapine TAB* 25 MG PO SCH (21:00)
--- NOTE | 2018-06-20 02:00 | DS ---
DISCHARGE SUMMARY: DATE OF ADMISSION: 06/18/18 DATE OF DISCHARGE: 06/19/18 ADMITTING PROVIDER: Lizeth Abarca NP. ATTENDING PHYSICIAN ON THE DAY OF DISCHARGE: Enrrique Yan MD. OUTPATIENT ORTHOPEDIC SURGEONS: Dr. Arias and Dr. Burt. CHIEF COMPLAINT: Fall with laceration to her right proximal forearm, intoxication, and subacute and chronic right arm pain in the setting of known fractures. PRINCIPAL DIAGNOSES: Intoxication, subacute fractures of the mid humerus and chronic fractures of the proximal humerus; alcoholism; laceration. HISTORY OF PRESENT ILLNESS AND HOSPITAL COURSE: Tiffany Bland is a 68-year-old female with past medical history of chronic alcohol abuse, COPD, carotid artery stenosis, angina, seizure disorder, hypertension, anxiety, depression, PTSD, IBS , osteoarthritis, proximal humerus fracture in October 2017 and mid humerus fracture 05/29/18. She had seen Dr. Arias on the day of admission, who recommended surgical evaluation up in [place], and after the patient had sobered up, she went home fell, one of many falls in recent weeks, while cooking supper. She had found some gin (she says she usually sticks to 2 to 3 beers at night and avoids harder alcohol more recently). [place] [facility] [place]. There she had a CT of her C-spine, showed no acute cervical spine fracture. CT brain noncontrast showed no acute intracranial or significant mass effect. Right shoulder x-ray showed a comminuted fracture over the proximal humerus and cervical neck of the right humerus, similar to earlier of the same day. She had a wrist x- ray which revealed negative for fracture; elbow x-ray, which demonstrated limited exam to the oblique view and presence of joint effusion, soft tissue swelling. With a history of falls, radiographic occult fracture was not excluded. This would most commonly involve the radial head in this demographic. The patient was admitted to observation status for detox. She attested on hospital day #2 that she had followup with [facility] given that her right arm sling had caused some "black areas" underneath and some loss of sensation distally in her fingers and they had taken off the sling. She says that she did not wear it to Dr. Arias' office in order to fit in her coat and they did not discuss management of that to her recollection. I curb sided with orthopedics given the patient was in the hospital, likely her subacute fractures with recommendation for eventual surgical management likely contributing to her pain and perhaps trigger for her alcohol use. They recommended a followup in [place]. There was a large concern that if she does not abstain from alcohol abuse that she could have additional fractures after the surgery and higher risk for infection and possible risk for eventual amputation if that were to occur. The patient on her part also was still considering surgery and where she would have it. She worked with Physical Therapy on hospital day #2, did very well, was at baseline. She of note had low magnesium on admission at 1.4 that was repleted. Serum alcohol had been 308. She was discharged home in guarded condition given her alcohol abuse. I talked to her about possible treatment facility. She said she has done it in [facility], she had been a patient there for 8 years as an outpatient, then they said that they do not have any room for her. [facility] also [facility]. She says that she has a friend Sandy Hensley who will be helping her out in the post hospitalization setting. DISCHARGE MEDICATIONS: Include: 1. Albuterol 1 puff inhaled q.4 hours p.r.n. 2. Cholecalciferol 2000 units p.o. daily. 3. Cyanocobalamin 1000 mcg IM monthly. 4. Pedialyte 4 ounces p.o. daily. 5. Folic acid 1 mg p.o. daily. 6. Lasix 20 mg p.r.n. 7. Boost High Protein. 8. Ativan 0.5 to 1 mg p.o. b.i.d. p.r.n. 9. Magnesium oxide 40 mg p.o. daily (renewed). 10. Dulera 2 puffs inhaled b.i.d. 11. Theragran 1 tab p.o. q.a.m. 12. Naproxen 500 mg p.o. q.12 hours p.r.n. 13. Nicotine gum 2 mg p.o. q.2 hours p.r.n. (renewed). 14. Zofran 4 mg p.o. t.i.d. p.r.n. 15. Potassium chloride 40 mEq p.o. daily. 16. Seroquel 50 to 100 mg p.o. at bedtime. 17. Ranitidine 150 mg p.o. daily p.r.n. 18. Thiamine 100 mg p.o. daily (new). 19. Spiriva 1 capsule inhaled q.a.m. 20. Vitamin B complex 1 capsule p.o. daily. FOLLOWUP: The patient was urged to follow with Dorcas Chan within 7 days of discharge. Follow with Dr. Arias or [facility] for further evaluation of her humerus fractures. She was urged to also follow up with [facility] or [facility] or [facility]. DISPOSITION: Home. CONDITION: Highly guarded given the alcoholism. TIME SPENT ON DISCHARGE: 40 minutes. [id number]/CPS #: [id number]
== END 2018-06-19 13:25 | disposition home or self-care (01) ==
LOC: ED 19:09 → MED 22:43
PROVIDERS: ADMIT Pediatrics; ATTEND Internal Medicine
DX: S51.811A Laceration without foreign body of right forearm, initial encounter (principal); W19.XXXA Unspecified fall, initial encounter; S42.301D Unspecified fracture of shaft of humerus, right arm, subsequent encounter for fracture with routine healing; S42.291D Other displaced fracture of upper end of right humerus, subsequent encounter for fracture with routine healing; W19.XXXD Unspecified fall, subsequent encounter; F10.229 Alcohol dependence with intoxication, unspecified; Y92.9 Unspecified place or not applicable; M79.601 Pain in right arm; J44.9 Chronic obstructive pulmonary disease, unspecified; I25.10 Atherosclerotic heart disease of native coronary artery without angina pectoris; G40.909 Epilepsy, unspecified, not intractable, without status epilepticus; D64.9 Anemia, unspecified; I10 Essential (primary) hypertension; K21.9 Gastro-esophageal reflux disease without esophagitis; F17.210 Nicotine dependence, cigarettes, uncomplicated; F43.10 Post-traumatic stress disorder, unspecified; K58.9 Irritable bowel syndrome, unspecified; M19.90 Unspecified osteoarthritis, unspecified site
CPT/HCPCS: 36415; 70450; 72125; 80048; 80053; 80320; 83735; 85025; 85610; 94640; 99285; A9270-GY; G0378; G0480; G8978-GP-CH; G8979-GP-CH; G8980-GP-CH; J3411; J3475

== ENCOUNTER 2018-06-23 21:16 | Observation (INO) | payer MEDICAID, MEDICARE ==
[2018-06-23] MEDS ORDERED: NS 0.9% 1000 ML** 2,000 ML IV ONE (21:33)
[2018-06-23] MEDS ORDERED: Ondansetron INJ* 2 MG/ML VIAL IV ONE (21:35)
[2018-06-23] MEDS ORDERED: Morphine 4 MG/ML VIAL (1 ml) 4 MG/ML VIAL IV ONE (21:35)
[2018-06-23 22:02] LABS: ABS Basophils 0.1 10^3/ul (0-0.2); ABS Eosinophils 0.2 10^3/ul (0-0.6); ABS Lymphocytes 1.1 10^3/ul (1.0-4.8); ABS Monocytes 0.8 10^3/ul (0-0.8); ABS Neutrophils 3.6 10^3/ul (1.5-7.7); ABS Nucleated RBC 0 10^3/ul; Eosinophil % 2.7 %; Hematocrit 36 % (33-41); Hemoglobin 12.5 g/dL (12.0-16.0); Lymphocyte % 18.8 %; Mean Corpuscular HGB Conc 35 g/dL (31-36); Mean Corpuscular Hemoglobin 41 pg (27-31); Mean Corpuscular Volume 119 fL (80-97); Mean Platelet Volume 6.9 fL (7.4-10.4); Nucleated Red Blood Cells % 0; Platelet Count 105 10^3/uL (150-450); Red Blood Count 3.02 10^6 /uL (3.70-4.87); Red Cell Distribution Width 15 % (10.5-15); White Blood Count 5.7 10^3/uL (3.5-10.8)
[2018-06-23 22:11] LABS: Albumin 3.6 g/dL (3.2-5.2); Albumin/Globulin Ratio 1.6 (1-3); BUN/Creatinine Ratio 11.4 (8-20); Calcium 8.7 mg/dL (8.6-10.3); EGFR African American 224.7 (>60); EGFR Non-African American 185.7 (>60); Globulin 2.3 g/dL (2-4); Potassium 3.2 mmol/L (3.5-5.0); Total Bilirubin 1.3 mg/dL (0.2-1.0); Total Protein 5.9 g/dL (6.4-8.9)
[2018-06-23 22:12] LABS: Troponin I 0.01 ng/mL (<0.04)
--- NOTE | 2018-06-23 22:54 | ED ---
Abdominal Pain/Female - HPI Summary HPI Summary: The patient is a 68 year old female who is presenting to the [facility] with a c/o abd pain and chest pain. The patient was reportedly at home and the fire department was called due to embers from underneath her bed from cigarettes butts. She reports of N/V/D as well as stool on her feet. Frequent reports of dizziness and falls are also noted by the patient. Both chest pain and abd pain are present at this time. PSHx noted and she reports of tubal ligation, appendectomy, and multiple C-sections. The patient is scheduled to have surgery in the [facility] and has been taking ibuprofen for pain. Symptoms are aggravated by nothing. Symptoms are alleviated by nothing. The pain is rated to be 9/10 in severity. - History of Current Complaint Chief Complaint: EDChestWallPain Stated Complaint: VOMITING/DIARREHA/ARM PAIN PER EMS Time Seen by Provider: 06/23/18 21:23 Hx Obtained From: Patient Onset/Duration: Gradual Onset Timing: Constant Severity Initially: Severe Severity Currently: Severe Pain Intensity: 9 Pain Scale Used: 0-10 Numeric Aggravating Factor(s): Nothing Alleviating Factor(s): Nothing Associated Signs and Symptoms: Positive: Nausea, Vomiting, Diarrhea, Other: - CP and Abd pain Allergies/Adverse Reactions: Allergies Allergy/AdvReac Type Severity Reaction Status Date / Time doxycycline Allergy Intermediate Swelling Verified 06/17/18 21:43 gabapentin Allergy Intermediate Swelling Verified 06/17/18 21:43 prednisone AdvReac made Verified 06/17/18 21:43 patient feel "wired" PMH/Surg Hx/FS Hx/Imm Hx Endocrine/Hematology History: Reports: Hx Anemia - macrocytic anemia Denies: Hx Anticoagulant Therapy, Hx Blood Disorders, Hx Blood Transfusions, Hx Bone Marrow Disease, Hx Diabetes, Hx Systemic Lupus Erythematosus, Hx Sickle Cell Disease, Hx Thyroid Disease, Hx Unexplained Bleeding, Other Endocrine/ Hematological Disorders Cardiovascular History: Reports: Hx Angina, Hx Coronary Artery Disease - left carotid artery surgery, Hx Hypercholesterolemia, Hx Hypertension, Other Cardiovascular Problems/Disorders - carotid endarterectomy, peripheral arterial occlusive disease Denies: Hx Aneurysm, Hx Angioplasty, Hx Auto Implanted Cardiovert Defib, Hx Cardiac Arrest, Hx Cardiomegaly, Hx Congenital Heart Disease, Hx Congestive Heart Failure, Hx Deep Vein Thrombosis, Hx Embolism, Hx Hypotension, Hx Pacemaker/ICD, Hx Peripheral Vascular Disease, Hx Rheumatic Fever, Hx Syncope, Hx Valvular Heart Disease Respiratory History: Reports: Hx Chronic Bronchitis, Hx Chronic Obstructive Pulmonary Disease (COPD), Hx Pneumonia, Other Respiratory Problems/Disorders - SMOKER Denies: Hx Asthma, Hx Cystic Fibrosis, Hx Lung Cancer, Hx Pleural Effusion, Hx Pulmonary Edema, Hx Pulmonary Embolism, Hx Seasonal Allergies, Hx Sleep Apnea GI History: Reports: Hx Gastroesophageal Reflux Disease - prn, Hx Irritable Bowel, Hx Ulcer, Other GI Disorders - adhesions Denies: Hx Cirrhosis, Hx Crohn's Disease, Hx Diverticulosis, Hx Gall Bladder Disease, Hx Gastrointestinal Bleed, Hx Hiatal Hernia, Hx Jaundice, Hx Obstructive Bowel, Hx Ileostomy, Hx Pyloric Stenosis History: Reports: Other Problems/Disorders - hx of UTI Denies: Hx Acute Renal Failure, Hx Benign Prostatic Hyperplasia, Hx Chronic Renal Failure, Hx Dialysis, Hx Kidney Infection, Hx Kidney Stones, Hx Renal Disease Musculoskeletal History: Reports: Hx Arthritis - osteo arthritis, osteoporosis, Hx Orthopedic Injury - broken fingers, Other Musculoskeletal History - Past injury to R hand, herniated disks Denies: Hx Back Problems, Hx Bursitis, Hx Congenital Bone Abnormalities, Hx Fibromyalgia, Hx Gout, Hx Osteoporosis, Hx Scoliosis, Hx Tendonitis Sensory History: Reports: Hx Cataracts - both, Hx Contacts or Glasses, Hx Vision Problem, Other Sensory Impairments - floaters Denies: Hx Eye Injury, Hx Eye Prosthesis, Hx Glaucoma, Hx Macular Degeneration, Hx Deafness, Hx Hearing Aid, Hx Hearing Problem Opthamlomology History: Reports: Hx Cataracts - both, Hx Contacts or Glasses, Hx Vision Problem, Other Sensory Impairments - floaters Denies: Hx Eye Injury, Hx Eye Prosthesis, Hx Glaucoma, Hx Macular Degeneration Neurological History: Reports: Hx Headaches - rarely, Hx Seizures - x[place] [facility] [place] since, Hx Spinal Cord Injury - Herniated disks, Other Neuro Impairments/Disorders - multiple concussions Denies: Hx Dementia, Hx Developmental Delay, Hx Migraine, Hx Transient Ischemic Attacks (TIA) Psychiatric History: Reports: Hx Anxiety - PTSD, Hx Depression - depressive disorder, Hx Panic Disorder - PTSD, Hx Post Traumatic Stress Disorder, Hx Inpatient Treatment, Hx Community Mental Health Tx, Hx Suicide Attempt, Hx Substance Abuse, Other Psychiatric Issues/Disorders Denies: Hx Attention Deficit Hyperactivity Disorder, Hx Eating Disorder, Hx Schizophrenia, Hx Bipolar Disorder, Hx of Violent Episodes Against Others - Surgical History Surgery Procedure, Year, and Place: TONSILECTOMY ; APPENDECTOMY; X2 ; TUBAL LIGATION; CAROTID ENDERECTOMY (NO STENTINGS) Hx Anesthesia Reactions: Yes - ETHER CAUSED VOMITING - Immunization History Date of Tetanus Vaccine: PT STATES UNSURE Date of Influenza Vaccine: NONE Infectious Disease History: No Infectious Disease History: Denies: Hx Clostridium Difficile, Hx Hepatitis, Hx Human Immunodeficiency Virus (HIV), Hx Shingles, Hx Tuberculosis, Traveled Outside the [place] in Last 30 Days - Family History Known Family History: Positive: Cardiac Disease - Father, Other - father - colon ca, h/o ETOH abuse; mom- alzheimer's dz - Social History Lives: Alone Alcohol Use: every 2 days per pt Alcohol Amount: 2 beers/day Hx Substance Use: No Substance Use Type: Reports: None Substance Use Comment - Amount & Last Used: pt aware of mental & physical risks of etoh, not willing/ready to change Hx Tobacco Use: Yes Smoking Status (MU): Light Every Day Tobacco Smoker Type: Cigarettes Amount Used/How Often: 1/2 pack/day Have You Smoked in the Last Year: Yes Review of Systems Constitutional: Negative Eyes: Negative ENT: Negative Positive: Chest Pain Respiratory: Negative Positive: Abdominal Pain, Vomiting, Diarrhea, Nausea Genitourinary: Negative Musculoskeletal: Negative Skin: Negative Neurological: Other - Dizziness Psychological: Normal All Other Systems Reviewed And Are Negative: Yes Physical Exam - Summary Physical Exam Summary: Appearance: Chronically ill appearing; Appearing older than stated age; feces about her feet Skin: Warm, dry, no obvious rash Eyes: sclera anicteric, no conjunctival pallor ENT: Mucus membranes dry, pharynx appears normal Neck: Supple, nontender Respiratory: Clear to auscultation, no signs of respiratory distress Cardiovascular: Normal S1, S2. No murmurs. HR elevated Abdomen: mildly distended mild diffuse tender; Normal BM; Without perineal signs Musculoskeletal: Normal, Strength/ROM Intact Neurological: A&Ox3, awake and alert, mentation is normal, speech is fluent and appropriate Psychiatric: affect is normal, does not appear anxious or depressed Triage Information Reviewed: Yes Vital Signs On Initial Exam: Initial Vitals Temp Pulse Resp BP Pulse Ox 99.7 F 110 15 120/77 96 06/23/18 21:28 06/23/18 21:28 06/23/18 21:28 06/23/18 21:28 06/23/18 21:28 Vital Signs Reviewed: Yes Diagnostics - Vital Signs Vital Signs Temp Pulse Resp BP Pulse Ox 06/23/18 22:46 18 06/23/18 21:28 99.7 F 110 15 120/77 96 - Laboratory Lab Results: Lab Results 06/23/18 06/23/18 06/23/18 Range/Units 21:45 21:45 21:45 WBC 5.7 (3.5-10.8) 10^3/uL RBC 3.02 L (3.70-4.87) 10^6 /uL Hgb 12.5 (12.0-16.0) g/dL Hct 36 (33-41) % MCV 119 H (80-97) fL MCH 41 H (27-31) pg MCHC 35 (31-36) g/dL RDW 15 (10.5-15) % Plt Count 105 L (150-450) 10^3/uL MPV 6.9 L (7.4-10.4) fL Neut % (Auto) 62.9 % Lymph % (Auto) 18.8 % [place] % (Auto) 14.5 % Eos % (Auto) 2.7 % Baso % (Auto) 1.1 % Absolute Neuts (auto) 3.6 (1.5-7.7) 10^3/ul Absolute Lymphs (auto) 1.1 (1.0-4.8) 10^3/ul Absolute Monos (auto) 0.8 (0-0.8) 10^3/ul Absolute Eos (auto) 0.2 (0-0.6) 10^3/ul Absolute Basos (auto) 0.1 (0-0.2) 10^3/ul Absolute Nucleated RBC 0 10^3/ul Nucleated RBC % 0 Sodium 130 L (135-145) mmol/L Potassium 3.2 L (3.5-5.0) mmol/L Chloride 95 L (101-111) mmol/L Carbon Dioxide 24 (22-32) mmol/L Anion Gap 11 (2-11) mmol/L BUN 4 L (6-24) mg/dL Creatinine 0.35 L (0.51-0.95) mg/dL Est GFR ( Amer) 224.7 (>60) Est GFR (Non-Af Amer) 185.7 (>60) BUN/Creatinine Ratio 11.4 (8-20) Glucose 89 (70-100) mg/dL Lactic Acid 2.7 H* (0.5-2.0) mmol/L Calcium 8.7 (8.6-10.3) mg/dL Total Bilirubin 1.30 H (0.2-1.0) mg/dL AST 84 H (13-39) U/L ALT 20 (7-52) U/L Alkaline Phosphatase 132 H (34-104) U/L Troponin I 0.01 (<0.04) ng/mL Total Protein 5.9 L (6.4-8.9) g/dL Albumin 3.6 (3.2-5.2) g/dL Globulin 2.3 (2-4) g/dL Albumin/Globulin Ratio 1.6 (1-3) Lipase 20 (11.0-82.0) U/L Serum Alcohol 158 H (<10) mg/dL Result Diagrams: 06/23/18 21:45 06/24/18 14:07 Lab Statement: Any lab studies that have been ordered have been reviewed, and results considered in the medical decision making process. - Radiology Chest X-rar Radiology Interpretation Completed By: ED Physician Summary of Radiographic Findings: The CXR reveals no acute processes as per ED Physician findings. Abdominal Pain Fem Course/Dx - Course Course Of Treatment: The patient is a 68 year old female who is presenting to the [facility] with a c/o of abd pain and chest pain. The patient reports of dizziness, N/V/D and stool covering her feet. She also reports of frequent falls in her home. The patient received a chest X-ray in the [facility] which revealed negative findings. The patient's UA and lab results revealed remarkable findings such as high serum alcohol, and high lactic acid. We discussed patient care with Dr. Montes at 0015 and she accepts patient care. The [place] will be [place] [facility] dx of right proximal humerus fracture , N/V, and chronic alcholism. - Diagnoses Provider Diagnoses: Fracture of proximal end of right humerus, Chronic alcoholism, N&V (nausea and vomiting) Discharge - Sign-Out/Discharge Documenting (check all that apply): Patient Departure - [place] [facility] [place] Discharge Plan Condition: Stable Disposition: ADMITTED TO [facility] - Billing Disposition and Condition Condition: STABLE Disposition: Admitted to [facility] - Attestation Statements Document Initiated by Nasreen: Yes Documenting Scribe: Choco Morales Provider For Whom Nasreen is Documenting (Include Credential): Dr. Matty Mezaiblyla Attestation: Choco Juárez, scribed for Dr. Matty Lassiter on 06/25/18 at 0505. Scribe Documentation Reviewed: Yes Provider Attestation: The documentation as recorded by the lisaiblyla, Choco Morales accurately reflects the service I personally performed and the decisions made by , Dr. Matty Lassiter Status of Scribe Document: Viewed
[2018-06-24 00:51] LABS: Urine Appearance Clear; Urine Bacteria Absent (Absent); Urine Bilirubin Negative (Negative); Urine Blood 1+ (Negative); Urine Color Yellow; Urine Glucose Negative (Negative); Urine Ketones Negative (Negative); Urine Nitrite Negative (Negative); Urine Protein Negative (Negative); Urine Red Blood Cell Trace(0-2/hpf) (Absent); Urine Specific Gravity 1.006 (1.010-1.030); Urine Squamous Epithelial Cell Present (Absent); Urine Urobilinogen Negative (Negative); Urine White Blood Cell Absent (Absent)
[2018-06-24] MEDS ORDERED: Ondansetron INJ* 2 MG/ML VIAL IV PRN (03:15)
[2018-06-24] MEDS ORDERED: traMADol TAB* 50 MG PO PRN (03:15)
[2018-06-24] MEDS ORDERED: Albuterol HFA INHALER* 8 gm MDI INH PRN (03:20)
[2018-06-24] MEDS ORDERED: Nicotine Lozenge* 4 MG LOZENGE MT PRN (03:21)
[2018-06-24] MEDS ORDERED: Enoxaparin(*) 40 MG/0.4 ML SYR SUBCUT SCH (04:00)
[2018-06-24] MEDS ORDERED: LORazepam TAB(*) 1 MG PO SCH (04:00)
[2018-06-24] MEDS: KCL 20 MEQ/100 ML IVPREMIX* 20 MEQ/100 ML BAG IV SCH ×2 (04:15→06:27)
[2018-06-24] MEDS ORDERED: Albuterol/Ipratropium NEB.SOL* Albuterol 2.5 MG/Ipratropium 0.5 MG 3 ML INH PRN (04:15)
[2018-06-24] MEDS: NS 0.9% 1000 ML** 1,000 ML IV SCH ×2 (04:15→12:27)
[2018-06-24] MEDS: Acetaminophen TAB* 325 MG PO PRN ×2 (08:24→12:30)
[2018-06-24] MEDS ORDERED: Multivitamins/Minerals TAB PO SCH (09:00)
[2018-06-24] MEDS ORDERED: Mometasone/Formoter 200/5 MDI INH SCH (09:00)
[2018-06-24] MEDS ORDERED: Famotidine TAB* 20 MG PO SCH (09:00)
[2018-06-24] MEDS ORDERED: Folic Acid TAB* 1 MG PO SCH (09:00)
[2018-06-24] MEDS ORDERED: Thiamine TAB* 100 MG TAB PO SCH (09:00)
--- NOTE | 2018-06-24 10:02 | HP ---
HISTORY AND PHYSICAL: DATE OF ADMISSION: 06/24/18 PRIMARY CARE PROVIDER: Dorcas Chan NP. CONTINUOUS YARN DYEING MACHINE OPERATOR: Gay Hernandez, the patient's daughter. CODE STATUS: Full. SOURCE OF INFORMATION: HPI is obtained from review of the chart and from the patient. She is a poor historian. HISTORY OF PRESENT ILLNESS: This is a 68-year-old female with chronic alcohol use disorder, history of COPD, history of depression, PTSD and anxiety, recent humeral fractures, who presents to the emergency room tonight with nausea, vomiting and intoxication. The patient was recently admitted for a fall and has had several falls over the course of the year that ultimately resulted in, on 05/29/18, a right humeral fracture that was actually refractured on . The patient has signed out against medical advice on the early May admission though she was discharged more recently on 06/19/18 where she came with repeat falls and a laceration and intoxication. The patient presents tonight to the emergency room. Since discharge on 06/19/18, she has continued to drink roughly 4 to 6 drinks per day, has had nausea and vomiting and abdominal pain, and repeated falls in the home. Tonight, she said she had severe abdominal pain and called the ambulance. EMS came and saw smoke coming from under the bed and called the fire department. When the fire department arrived, they found lit cigarettes smoldering underneath her bed and also noted that the patient was disheveled, she had feces on her feet, she was intoxicated and looked unwell, and thus they brought her to the emergency room, which she agreed with. In the emergency room, her temperature was 99.7, her heart rate was 110 sinus, respiratory rate was 15, she was sating 96% on room air, and her blood pressure was 120/77. Her labs show that she had low platelets. A lactic acid was elevated at 2.7 and elevated alk phos was noted. Sodium was 130, potassium was 3.2, magnesium was 1.3 and serum alcohol level was 158. This is actually relatively low compared to her prior hospitalization. Chest x-ray was performed , which showed no active cardiopulmonary disease. Because the patient had electrolyte abnormalities and concerned that nausea and vomiting were driven by alcohol withdrawal, hospitalist team was asked to evaluate the patient for admission. PAST MEDICAL HISTORY: Alcohol use disorder, severe; COPD; carotid artery stenosis; angina; seizure disorder; hypertension; anxiety; depression; PTSD; IBS ; osteoarthritis; proximal humerus fracture in October 2007 and refracture on 05/29/18. The patient does follow with Dr. Arias for her humeral fracture, who recommended surgical evaluation in [place] although she has not been able to make it to this evaluation. PAST SURGICAL HISTORY: She has had a left carotid endarterectomy, tonsillectomy , appendectomy, and a . MEDICATIONS: The patient reports intermittent compliance with her medications, but she is currently prescribed: 1. Albuterol 1 puff inhaled q 4 hours. 2. Vitamin D3 at 2000 units p.o. daily. 3. Vitamin B12 at 1000 mcg IM monthly. 4. Pedialyte p.r.n. 5. Folic acid 1 mg p.o. daily. 6. Furosemide 20 mg p.o. p.r.n. 7. Lorazepam 0.5 to 1 mg p.o. b.i.d. p.r.n. for anxiety. 8. Magnesium oxide 400 mg p.o. daily. 9. Multivitamins daily. 10. Naproxen 500 mg p.o. q.12 hours p.r.n. for pain. 11. Nicotine gum 2 mg p.o. q.2 hours for craving. 12. Zofran 4 mg p.o. t.i.d. p.r.n. 13. Potassium chloride 40 mEq p.o. daily. 14. Seroquel 100 mg p.o. q.h.s. p.r.n. 15. Ranitidine 150 mg p.o. daily. 16. Thiamine 100 mg p.o. daily. 17. Spiriva 1 cap inhaled q.a.m. ALLERGIES: DOXYCYCLINE, GABAPENTIN, and PREDNISONE. FAMILY HISTORY: Mother is with dementia, currently living at [facility]. Father is with hypertension, coronary artery disease, and colon cancer. SOCIAL HISTORY: The patient lives alone, is currently disabled. Her alcohol use is daily drinking 4 to 6 drinks per day. Tobacco, she smokes 1 pack per day and has a 82-btin-suxh history. Denies any illicit drug use. REVIEW OF SYSTEMS: Constitutional: Negative for fevers or chills. Positive for weakness. HEENT: Negative for headaches, vision changes, or difficulty swallowing. Cardiovascular: Positive for chest pain, described as positional but otherwise no palpitations or orthopnea. Respiratory: Negative for shortness of breath or cough. GI: Positive for nausea and vomiting, diarrhea, and abdominal pain. : Negative for dysuria or hematuria. Musculoskeletal: Positive for arthralgias and myalgias particularly right humeral fracture and weakness. Skin: Negative for rashes or lesions. Neurologic: Negative for focal weakness or numbness. Psychiatric: Positive for anxiety and depression. Endocrine: Negative for polyuria or polydipsia. Heme: Negative for bruising , bleeding, or lymphadenopathy. PHYSICAL EXAMINATION GENERAL: The patient is disheveled but responsive, in no acute distress, sleeping in hospital stretcher. A and O x3. VITAL SIGNS: At this time, temperature is 98.9, blood pressure is 112/89, heart rate is 109, respiratory rate 16, oxygen saturation is 91% on 2 L nasal cannula. HEENT: Her pupils are equal and reactive. Her extraocular muscles are intact. She has sclerae that her anicteric and she has dry mucous membranes with no other oral lesions. NECK: Supple with no supraclavicular or cervical lymphadenopathy. RESPIRATORY: Diminished with expiratory wheezes bilaterally. CARDIAC: She has regular rate and rhythm with no murmurs, rubs, or gallops. ABDOMEN: Soft, tender to palpation epigastric but normoactive bowel sounds. No guarding or rebound. EXTREMITIES: She has no pedal edema and 2+ pulses in bilateral lower extremities. MUSCULOSKELETAL: Has limited range of motion on right upper extremity. Radial pulses are intact. She has significant deformity in right upper arm with healing ecchymoses and lacerations in right upper arm, otherwise moves 3 other limbs simultaneously. NEUROLOGIC: Cranial nerves II to XII are intact. The patient is able to follow commands. Speech is clear. A and O x3 with no focal deficits. SKIN: As per musculoskeletal exam. DIAGNOSTIC STUDIES/LAB DATA: White blood cell count 5.7, hemoglobin 12.5, hematocrit 36, platelets 105. Sodium is 130, potassium is 3.2, chloride is 95, carbon dioxide 24, anion gap 11, BUN 4, creatinine 0.35, lactic acid is 2.7. Total bili is 1.3, AST is 84, ALT is 20, alkaline phosphatase is 132. Troponin is 0.01. UA was done, which is within normal limits. Serum alcohol was 158. Chest x-ray was done, which shows no active cardiopulmonary disease. Imaging and labs were reviewed by myself. ASSESSMENT AND PLAN: This is a 68-year-old female with a past medical history of ongoing alcohol use disorder, chronic obstructive pulmonary disease, depression, anxiety, posttraumatic stress disorder, recent right humeral fracture in October 2017 and repeat fracture in May of 2018, who is admitted this evening with nausea, vomiting, and abdominal pain with elevated lactic acid and possible alcohol withdrawal. 1. Alcohol use disorder. We will place the patient on WA protocol with oral Ativan. She has no evidence of hepatitis. We will place social work consult. The patient is currently precontemplative, although she does report she has spent some time in [facility] and family counseling services for inpatient rehabilitation, although she does not express an interest in attending currently. We will continue thiamine and folate. 2. Nausea, vomiting, and abdominal pain in the setting of alcohol use disorder , most consistent with alcoholic gastritis. We will give the patient Pepcid, Zofran. Continue gentle IV hydration and repeat electrolytes. 3. Lactic acidosis. This is in the setting of vomiting. We will hydrate and she has no other signs of sepsis. We will continue to monitor. 4. Humeral fracture in right on 2 separate occasions. We will continue pain control with Tylenol and tramadol. Ordered PT and OT. 5. Chronic obstructive pulmonary disease. Continue home inhalers. 6. Tobacco use disorder. Offered nicotine replacement therapy. 7. Thrombocytopenia. This is in the setting of chronic alcohol use disorder. 8. DVT prophylaxis. The patient will be placed on Lovenox. 9. FEN is unrestricted. 10. Code status is full. 11. Disposition. The patient is stable for inpatient admission to the medical floor. TIME SPENT: Thirty-five minutes was spent in the planning of this admission with over half of that spent directly at the bedside with the patient providing direct patient care. Plan of care was discussed with the patient who is agreeable to admission and has no further questions. [id number]/[facility] #: [id number] [place]
[2018-06-24 14:49] LABS: Albumin 3.3 g/dL (3.2-5.2); Albumin/Globulin Ratio 1.7 (1-3); BUN/Creatinine Ratio 9.4 (8-20); Calcium 7.7 mg/dL (8.6-10.3); EGFR African American 249.2 (>60); Potassium 3.6 mmol/L (3.5-5.0); Total Bilirubin 2.3 mg/dL (0.2-1.0); Total Protein 5.3 g/dL (6.4-8.9)
[2018-06-24 15:15] VITALS: BP 125/75
--- NOTE | 2018-06-24 16:58 | CONSULT ---
Subjective Date of Service: 06/24/18 Interval History: Ms. Bland is a 68 yo female with PMH significant for Patient seen and examined at bedside. Family History: Unchanged from Admission Social History: Unchanged from Admission Past Medical History: Unchanged from Admission Review of Systems - Measurements Intake and Output: Intake and Output Last 24 Hours 06/22/18 06/23/18 06/24/18 06/25/18 06:59 06:59 06:59 06:59 Intake Total 355 1077 Output Total 0 Balance 355 1077 Weight 133 lb 9.6 oz Intake: IV Fluids 254 517 NS (0.9%) 254 392 NS (0.9%) 20 meq KCL 125 IVPB 101 NS (0.9%) 20 meq KCL 101 Oral 0 560 Output: Urine 0 Other: Estimated Void Medium # Bowel Movements 2 Estimated Stool Amount Medium # Voids 1 - Review of Systems Constitutional Symptoms: Negative: Fever, Other - Chills Dermatology: Positive: Other - Open area to buttocks Objective Active Medications: Acetaminophen (Tylenol Tab*) 650 mg PO Q4H PRN Reason: PAIN Albuterol (Ventolin Hfa Inhaler*) 1 puff INH Q4H PRN Reason: SOB/WHEEZING Albuterol/Ipratropium (Duoneb (Albuterol 2.5 Mg/Ipratropium 0.5 Mg)) 1 neb INH Q6H PRN Reason: SOB/WHEEZING Enoxaparin Sodium (Lovenox(*)) 40 mg SUBCUT BEDTIME HERNANDEZ Famotidine (Pepcid Tab*) 20 mg PO BID HERNANDEZ Folic Acid (Folvite Tab*) 1 mg PO DAILY HERNANDEZ Sodium Chloride (Ns 0.9% 1000 Ml) 1,000 mls @ 125 mls/hr IV Q8H HERNANDEZ Stop: 06/24/18 19:14 Lorazepam (Ativan Tab(*)) 0 - 6 mg PO .PER [facility] PROTOCOL HERNANDEZ; Protocol Mometasone Furoate/Formoterol Fumar (Dulera 200/5 Mdi*) 2 puff INH BID HERNANDEZ Multivitamins/Minerals (Theragran/Minerals Tab*) 1 tab PO DAILY HERNANDEZ Nicotine Polacrilex (Nicotine Lozenge*) 4 mg MT Q2H PRN Reason: CRAVINGS Ondansetron HCl (Zofran Inj*) 4 mg IV Q6H PRN Reason: NAUSEA Thiamine HCl (Vitamin B-1 Tab*) 100 mg PO DAILY HERNANDEZ Tramadol HCl (Ultram*) 100 mg PO Q6H PRN Reason: PAIN Vital Signs 06/24/18 06/24/18 13:57 14:43 Temperature 98.0 F 98.2 F Pulse Rate 100 100 Respiratory 18 20 Rate Blood Pressure 128/81 125/75 (mmHg) O2 Sat by Pulse 94 96 Oximetry Oxygen Devices in Use Now: Nasal Cannula Appearance: NAD, sitting up in bed Ears/Nose/Mouth/Throat: Mucous Membranes Moist Respiratory: Symmetrical Chest Expansion and Respiratory Effort Skin: - - See skin note Neurological: Alert and Oriented x 3 Nutrition: Taking PO's Result Diagrams: 06/23/18 21:45 06/24/18 14:07 Additional Lab and Data: Skin Deviation Note - Skin Deviation Findings Right elbow - Buttocks - blanchable and skin intact. Recommend: Optifoam to the right arm skin tear and barrier cream to buttocks. Frequent turning and repositioning. Wound Problem/Plan Is Patient a Wound Clinic Patient: No Attending: Janette Doyle
== END 2018-06-24 16:30 | disposition home or self-care (01) ==
LOC: ED 21:16 → INTOOBSV 06-24 03:10 → MED 06-24 03:10
PROVIDERS: ADMIT Internal Medicine; ATTEND Internal Medicine
DX: F10.20 Alcohol dependence, uncomplicated (principal); R10.9 Unspecified abdominal pain; S42.201D Unspecified fracture of upper end of right humerus, subsequent encounter for fracture with routine healing; W19.XXXD Unspecified fall, subsequent encounter; R07.9 Chest pain, unspecified; R11.2 Nausea with vomiting, unspecified; Y90.6 Blood alcohol level of 120-199 mg/100 ml; R19.7 Diarrhea, unspecified; I25.10 Atherosclerotic heart disease of native coronary artery without angina pectoris; I10 Essential (primary) hypertension; J44.9 Chronic obstructive pulmonary disease, unspecified; K21.9 Gastro-esophageal reflux disease without esophagitis; R51 Headache; F17.210 Nicotine dependence, cigarettes, uncomplicated; F43.10 Post-traumatic stress disorder, unspecified
CPT/HCPCS: 36415; 71046; 80053; 80320; 81003; 81015; 83605; 83690; 84484; 85025; 94640; 96361; 96372; 96374; 96375; 99285; A9270-GY; G0378; G0480; G8978-GP-CJ; G8979-GP-CH; G8987-GO-CL; G8988-GO-CI; J1650; J2270; J2405; J3480

== ENCOUNTER 2018-08-06 01:58 | Emergency (ER) | payer MEDICARE, MEDICAID ==
--- NOTE | 2018-08-06 02:41 | ED ---
Upper Extremity Pain - HPI Summary HPI Summary: 68 year old F brought in by ambulance from home to [facility] with a chief complaint of worsening right shoulder pain since 2 hours ago. The patient rates the pain 9 /10 in severity. Symptoms aggravated by nothing. Symptoms alleviated by nothing. Patient reports ETOH intoxication. Per EMS, patient fell out of bed earlier and called EMS. - History of Current Complaint Chief Complaint: EDFall Stated Complaint: "FALL" PER EMS Time Seen by Provider: 08/06/18 02:15 Hx Obtained From: Patient Onset/Duration: Started Hours Ago - 2, Still Present Timing: Constant Severity Currently: Severe Pain Location: Shoulder - right Aggravating Factor(s): Nothing Alleviating Factor(s): Nothing Associated Signs & Symptoms: Positive: Other - ETOH intoxication - Allergies/Home Medications Allergies/Adverse Reactions: Allergies Allergy/AdvReac Type Severity Reaction Status Date / Time doxycycline Allergy Intermediate Swelling Verified 06/17/18 21:43 gabapentin Allergy Intermediate Swelling Verified 06/17/18 21:43 prednisone AdvReac made Verified 06/17/18 21:43 patient feel "wired" PMH/Surg Hx/FS Hx/Imm Hx Previously Healthy: No Endocrine/Hematology History: Reports: Hx Anemia - macrocytic anemia Denies: Hx Anticoagulant Therapy, Hx Blood Disorders, Hx Blood Transfusions, Hx Bone Marrow Disease, Hx Diabetes, Hx Systemic Lupus Erythematosus, Hx Sickle Cell Disease, Hx Thyroid Disease, Hx Unexplained Bleeding, Other Endocrine/ Hematological Disorders Cardiovascular History: Reports: Hx Angina, Hx Coronary Artery Disease - left carotid artery surgery, Hx Hypercholesterolemia, Hx Hypertension, Other Cardiovascular Problems/Disorders - carotid endarterectomy, peripheral arterial occlusive disease Denies: Hx Aneurysm, Hx Angioplasty, Hx Auto Implanted Cardiovert Defib, Hx Cardiac Arrest, Hx Cardiomegaly, Hx Congenital Heart Disease, Hx Congestive Heart Failure, Hx Deep Vein Thrombosis, Hx Embolism, Hx Hypotension, Hx Pacemaker/ICD, Hx Peripheral Vascular Disease, Hx Rheumatic Fever, Hx Syncope, Hx Valvular Heart Disease Respiratory History: Reports: Hx Chronic Bronchitis, Hx Chronic Obstructive Pulmonary Disease (COPD), Hx Pneumonia, Other Respiratory Problems/Disorders - SMOKER Denies: Hx Asthma, Hx Cystic Fibrosis, Hx Lung Cancer, Hx Pleural Effusion, Hx Pulmonary Edema, Hx Pulmonary Embolism, Hx Seasonal Allergies, Hx Sleep Apnea GI History: Reports: Hx Gastroesophageal Reflux Disease - prn, Hx Irritable Bowel, Hx Ulcer, Other GI Disorders - adhesions Denies: Hx Cirrhosis, Hx Crohn's Disease, Hx Diverticulosis, Hx Gall Bladder Disease, Hx Gastrointestinal Bleed, Hx Hiatal Hernia, Hx Jaundice, Hx Obstructive Bowel, Hx Ileostomy, Hx Pyloric Stenosis History: Reports: Other Problems/Disorders - hx of UTI Denies: Hx Acute Renal Failure, Hx Benign Prostatic Hyperplasia, Hx Chronic Renal Failure, Hx Dialysis, Hx Kidney Infection, Hx Kidney Stones, Hx Renal Disease Musculoskeletal History: Reports: Hx Arthritis - osteo arthritis, osteoporosis, Hx Orthopedic Injury - broken fingers, Other Musculoskeletal History - Past injury to R hand, herniated disks Denies: Hx Back Problems, Hx Bursitis, Hx Congenital Bone Abnormalities, Hx Fibromyalgia, Hx Gout, Hx Osteoporosis, Hx Scoliosis, Hx Tendonitis Sensory History: Reports: Hx Cataracts - both, Hx Contacts or Glasses, Hx Vision Problem, Other Sensory Impairments - floaters Denies: Hx Eye Injury, Hx Eye Prosthesis, Hx Glaucoma, Hx Macular Degeneration, Hx Deafness, Hx Hearing Aid, Hx Hearing Problem Opthamlomology History: Reports: Hx Cataracts - both, Hx Contacts or Glasses, Hx Vision Problem, Other Sensory Impairments - floaters Denies: Hx Eye Injury, Hx Eye Prosthesis, Hx Glaucoma, Hx Macular Degeneration Neurological History: Reports: Hx Headaches - rarely, Hx Seizures - x1 6 years ago at [facility] [place]- none since, Hx Spinal Cord Injury - Herniated disks, Other Neuro Impairments/Disorders - multiple concussions Denies: Hx Dementia, Hx Developmental Delay, Hx Migraine, Hx Transient Ischemic Attacks (TIA) Psychiatric History: Reports: Hx Anxiety - PTSD, Hx Depression - depressive disorder, Hx Panic Disorder - PTSD, Hx Post Traumatic Stress Disorder, Hx Inpatient Treatment, Hx Community Mental Health Tx, Hx Suicide Attempt, Hx Substance Abuse, Other Psychiatric Issues/Disorders Denies: Hx Attention Deficit Hyperactivity Disorder, Hx Eating Disorder, Hx Schizophrenia, Hx Bipolar Disorder, Hx of Violent Episodes Against Others - Surgical History Surgery Procedure, Year, and Place: TONSILECTOMY ; APPENDECTOMY; X2 ; TUBAL LIGATION; CAROTID ENDERECTOMY (NO STENTINGS) Hx Anesthesia Reactions: Yes - ETHER CAUSED VOMITING - Immunization History Date of Tetanus Vaccine: PT STATES UNSURE Date of Influenza Vaccine: NONE Infectious Disease History: No Infectious Disease History: Denies: Hx Clostridium Difficile, Hx Hepatitis, Hx Human Immunodeficiency Virus (HIV), Hx Shingles, Hx Tuberculosis, Traveled Outside the [place] in Last 30 Days - Family History Known Family History: Positive: Cardiac Disease - Father, Other - father - colon ca, h/o ETOH abuse; mom- alzheimer's dz - Social History Alcohol Use: every 2 days per pt Alcohol Amount: 2 beers/day Hx Substance Use: No Substance Use Type: Reports: None Hx Tobacco Use: Yes Smoking Status (MU): Light Every Day Tobacco Smoker Type: Cigarettes Amount Used/How Often: 1/2 pack/day Have You Smoked in the Last Year: Yes Review of Systems Positive: Other - worsening right upper extremity pain Positive: Other - ETOH intoxication All Other Systems Reviewed And Are Negative: Yes Physical Exam - Summary Physical Exam Summary: VITAL SIGNS: Reviewed. GENERAL: Patient is a well-developed and nourished FEMALE who is lying comfortable in the stretcher. Patient is not in any acute respiratory distress. Patient is unkept. HEAD AND FACE: No signs of trauma. No ecchymosis, hematomas or skull depressions. No sinus tenderness. EYES: PERRLA, EOMI x 2, No injected conjunctiva, no nystagmus. EARS: Hearing grossly intact. Ear canals and tympanic membranes are within normal limits. MOUTH: Oropharynx within normal limits. NECK: Supple, trachea is midline, no adenopathy, no JVD, no carotid bruit, no c- spine tenderness, neck with full ROM CHEST: Symmetric, no tenderness at palpation LUNGS: Clear to auscultation bilaterally. No wheezing or crackles. CVS: Regular rate and rhythm, S1 and S2 present, no murmurs or gallops appreciated. ABDOMEN: Soft, non-tender. No signs of distention. No rebound no guarding, and no masses palpated. Bowel sounds are normal. EXTREMITIES: Patient has chronic and swelling deformity of right upper arm NEURO: Alert and oriented x 3. No acute neurological deficits. Speech is normal and follows commands. SKIN: Dry and warm Triage Information Reviewed: Yes Vital Signs On Initial Exam: Initial Vitals Temp Pulse Resp BP Pulse Ox 98 F 97 20 102/74 99 08/06/18 01:58 08/06/18 01:58 08/06/18 01:58 08/06/18 01:58 08/06/18 01:58 Vital Signs Reviewed: Yes Diagnostics - Vital Signs Vital Signs Temp Pulse Resp BP Pulse Ox 08/06/18 01:58 98 F 97 20 102/74 99 - Laboratory Lab Statement: Any lab studies that have been ordered have been reviewed, and results considered in the medical decision making process. Course/Dx - Course Course Of Treatment: 68 year old F brought in by ambulance from home to [facility] with a chief complaint of worsening right shoulder pain and alcohol intoxication since 2 hours ago. In ED course patient was given Percocet and gabapentin. Patient feels better and would like to go home. Patient will be discharged home with instructions to follow up with her primary care provider in 3 days and to return to ED for new or worsening symptoms. Patient understands and is agreeable to discharge. - Diagnoses Provider Diagnoses: Alcohol intoxication, Fall Discharge - Sign-Out/Discharge Documenting (check all that apply): Patient Departure - Discharge Patient Received Moderate/Deep Sedation with Procedure: No - Discharge Plan Condition: Stable Disposition: HOME Patient Education Materials: Abuse of Alcohol (ED), Fall Prevention (ED) Referrals: Dorcas Chan, [employer] OPERATOR [Primary Care Provider] - 3 Days Additional Instructions: Follow up with your primary care provider in 3 days. Return to the Emergency Department for new or worsening symptoms. - Attestation Statements Document Initiated by Scribe: Yes Documenting Scribe: Crystal Frye Provider For Whom Scribe is Documenting (Include Credential): Tyrel Bradford MD Scribe Attestation: Crystal Juárez, scribed for Tyrel Bradford MD on 08/06/18 at 0506. Status of Scribe Document: Ready
[2018-08-06] MEDS ORDERED: Gabapentin CAP(*) 300 MG PO ONE (02:47)
[2018-08-06] MEDS ORDERED: oxyCODONE/Acetamin 5/325 MG* TAB PO ONE (02:47)
[2018-08-06 05:06] VITALS: BP 98/69
== END 2018-08-06 05:43 | disposition home or self-care (01) ==
LOC: ED 01:58
DX: F10.129 Alcohol abuse with intoxication, unspecified (principal); M25.511 Pain in right shoulder; W06.XXXA Fall from bed, initial encounter; J44.9 Chronic obstructive pulmonary disease, unspecified; Z88.1 Allergy status to other antibiotic agents; Z88.8 Allergy status to other drugs, medicaments and biological substances; Z98.890 Other specified postprocedural states; F17.210 Nicotine dependence, cigarettes, uncomplicated
CPT/HCPCS: 99283; A9270-GY

== ENCOUNTER 2018-08-07 15:11 | Inpatient (IN) | payer MEDICARE, MEDICAID ==
[2018-08-07] MEDS ORDERED: Ondansetron INJ* 2 MG/ML VIAL IV ONE (16:12)
[2018-08-07] MEDS ORDERED: NS 0.9% 1000 ML** 1,000 ML IV ONE ×2 (16:12→17:22)
--- NOTE | 2018-08-07 16:13 | ED ---
Abdominal Pain/Female - HPI Summary HPI Summary: Patient is a 68-year-old female who presents to emergency department for vomiting and abdominal pain that started last night. Patient is an alcoholic and states she drank one beer prior to arrival. Patient was seen in the ER yesterday for shoulder pain after a fall. Past medical history of alcoholism, COPD, GERD. Patient also notes she is having some mild left-sided chest pain in the ER today. Pt. notes a chronic cough and is a daily smoker. Symptoms are moderate in severity. No current modifying factors. - History of Current Complaint Chief Complaint: EDGIBleed Stated Complaint: ABD PAIN PER EMS Time Seen by Provider: 08/07/18 15:55 Hx Obtained From: Patient Pain Intensity: 0 Allergies/Adverse Reactions: Allergies Allergy/AdvReac Type Severity Reaction Status Date / Time doxycycline Allergy Intermediate Swelling Verified 06/17/18 21:43 gabapentin Allergy Intermediate Swelling Verified 06/17/18 21:43 prednisone AdvReac made Verified 06/17/18 21:43 patient feel "wired" Home Medications: Home Medications Magnesium Oxide TAB* [MagOx 400 TAB*] 400 mg PO DAILY 08/07/18 [History Confirmed 08/07/18] PMH/Surg Hx/FS Hx/Imm Hx Previously Healthy: Yes Endocrine/Hematology History: Reports: Hx Anemia - macrocytic anemia Denies: Hx Anticoagulant Therapy, Hx Blood Disorders, Hx Blood Transfusions, Hx Bone Marrow Disease, Hx Diabetes, Hx Systemic Lupus Erythematosus, Hx Sickle Cell Disease, Hx Thyroid Disease, Hx Unexplained Bleeding, Other Endocrine/ Hematological Disorders Cardiovascular History: Reports: Hx Angina, Hx Coronary Artery Disease - left carotid artery surgery, Hx Hypercholesterolemia, Hx Hypertension, Other Cardiovascular Problems/Disorders - carotid endarterectomy, peripheral arterial occlusive disease Denies: Hx Aneurysm, Hx Angioplasty, Hx Auto Implanted Cardiovert Defib, Hx Cardiac Arrest, Hx Cardiomegaly, Hx Congenital Heart Disease, Hx Congestive Heart Failure, Hx Deep Vein Thrombosis, Hx Embolism, Hx Hypotension, Hx Pacemaker/ICD, Hx Peripheral Vascular Disease, Hx Rheumatic Fever, Hx Syncope, Hx Valvular Heart Disease Respiratory History: Reports: Hx Chronic Bronchitis, Hx Chronic Obstructive Pulmonary Disease (COPD), Hx Pneumonia, Other Respiratory Problems/Disorders - SMOKER Denies: Hx Asthma, Hx Cystic Fibrosis, Hx Lung Cancer, Hx Pleural Effusion, Hx Pulmonary Edema, Hx Pulmonary Embolism, Hx Seasonal Allergies, Hx Sleep Apnea GI History: Reports: Hx Gastroesophageal Reflux Disease - prn, Hx Irritable Bowel, Hx Ulcer, Other GI Disorders - adhesions Denies: Hx Cirrhosis, Hx Crohn's Disease, Hx Diverticulosis, Hx Gall Bladder Disease, Hx Gastrointestinal Bleed, Hx Hiatal Hernia, Hx Jaundice, Hx Obstructive Bowel, Hx Ileostomy, Hx Pyloric Stenosis History: Reports: Other Problems/Disorders - hx of UTI Denies: Hx Acute Renal Failure, Hx Benign Prostatic Hyperplasia, Hx Chronic Renal Failure, Hx Dialysis, Hx Kidney Infection, Hx Kidney Stones, Hx Renal Disease Musculoskeletal History: Reports: Hx Arthritis - osteo arthritis, osteoporosis, Hx Orthopedic Injury - broken fingers, Other Musculoskeletal History - Past injury to R hand, herniated disks Denies: Hx Back Problems, Hx Bursitis, Hx Congenital Bone Abnormalities, Hx Fibromyalgia, Hx Gout, Hx Osteoporosis, Hx Scoliosis, Hx Tendonitis Sensory History: Reports: Hx Cataracts - both, Hx Contacts or Glasses, Hx Vision Problem, Other Sensory Impairments - floaters Denies: Hx Eye Injury, Hx Eye Prosthesis, Hx Glaucoma, Hx Macular Degeneration, Hx Deafness, Hx Hearing Aid, Hx Hearing Problem Opthamlomology History: Reports: Hx Cataracts - both, Hx Contacts or Glasses, Hx Vision Problem, Other Sensory Impairments - floaters Denies: Hx Eye Injury, Hx Eye Prosthesis, Hx Glaucoma, Hx Macular Degeneration Neurological History: Reports: Hx Headaches - rarely, Hx Seizures - x1 6 years ago at [facility] [place] none since, Hx Spinal Cord Injury - Herniated disks, Other Neuro Impairments/Disorders - multiple concussions Denies: Hx Dementia, Hx Developmental Delay, Hx Migraine, Hx Transient Ischemic Attacks (TIA) Psychiatric History: Reports: Hx Anxiety - PTSD, Hx Depression - depressive disorder, Hx Panic Disorder - PTSD, Hx Post Traumatic Stress Disorder, Hx Inpatient Treatment, Hx Community Mental Health Tx, Hx Suicide Attempt, Hx Substance Abuse, Other Psychiatric Issues/Disorders Denies: Hx Attention Deficit Hyperactivity Disorder, Hx Eating Disorder, Hx Schizophrenia, Hx Bipolar Disorder, Hx of Violent Episodes Against Others - Surgical History Surgery Procedure, Year, and Place: TONSILECTOMY ; APPENDECTOMY; X2 ; TUBAL LIGATION; CAROTID ENDERECTOMY (NO STENTINGS) Hx Anesthesia Reactions: Yes - ETHER CAUSED VOMITING - Immunization History Date of Tetanus Vaccine: PT STATES UNSURE Date of Influenza Vaccine: NONE Infectious Disease History: No Infectious Disease History: Denies: Hx Clostridium Difficile, Hx Hepatitis, Hx Human Immunodeficiency Virus (HIV), Hx Shingles, Hx Tuberculosis, Traveled Outside the [place] in Last 30 Days - Family History Known Family History: Positive: Cardiac Disease - Father, Other - father - colon ca, h/o ETOH abuse; mom- alzheimer's dz - Social History Occupation: Retired Lives: Alone Alcohol Use: Daily Alcohol Amount: 2 beers/day Hx Substance Use: No Substance Use Type: Reports: None Substance Use Comment - Amount & Last Used: pt aware of mental & physical risks of etoh, not willing/ready to change Hx Tobacco Use: Yes Smoking Status (MU): Light Every Day Tobacco Smoker Type: Cigarettes Amount Used/How Often: 1/2 pack/day Have You Smoked in the Last Year: Yes Review of Systems Positive: Chills. Negative: Fever Positive: Chest Pain. Negative: Palpitations Positive: Cough. Negative: Shortness Of Breath Positive: Abdominal Pain, Vomiting, Nausea. Negative: Diarrhea Genitourinary: Negative Musculoskeletal: Negative Skin: Negative Neurological: Negative All Other Systems Reviewed And Are Negative: Yes Physical Exam Triage Information Reviewed: Yes Vital Signs On Initial Exam: Initial Vitals Temp Pulse Resp BP Pulse Ox 98.4 F 90 16 138/94 96 08/07/18 15:15 08/07/18 15:15 08/07/18 15:15 08/07/18 15:15 08/07/18 15:15 Vital Signs Reviewed: Yes Appearance: Positive: Thin - Pt. lying in bed in NAD. Productive cough noted. Appears older than stated age. Unkept. Skin: Positive: Warm, Dry Head/Face: Positive: Normal Head/Face Inspection Eyes: Positive: Normal, EOMI, SIMBA Neck: Positive: Supple Respiratory/Lung Sounds: Positive: Other - Diffuse wheeze and rhonchi. Cardiovascular: Positive: Normal, RRR Abdomen Description: Positive: Other: - Abd. is soft. Mildly distented with pain on palpation to RLQ and LLQ with guarding. Neurological: Positive: Normal, CN Intact II-III Psychiatric: Positive: Affect/Mood Appropriate Diagnostics - Vital Signs Vital Signs Temp Pulse Resp BP Pulse Ox 08/07/18 15:15 98.4 F 90 16 138/94 96 - Laboratory Result Diagrams: 08/07/18 16:29 08/07/18 16:29 Lab Statement: Any lab studies that have been ordered have been reviewed, and results considered in the medical decision making process. Abdominal Pain Fem Course/Dx - Course Course Of Treatment: Pt. presenting with main complaints of N/V and abd. pain. She is afebrile. Mildly tachycardic. Pt. a daily drinking and smoker. She as a productive cough and diffuse abd. pain on exam. Pt. started on IV fluids and zofran. Pt. reportedly told EMS she was having coffee grounds emesis but pt. has had no vomiting in ED so far. Pt. currently in hallway and unable to do rectal exam. CMP shows Na 125, Cl89, lactic acid 4.2, mag 1.3, bilirubin 1.90, AST 89, alk phos 126, BUN 6. ECG done at 1646 shows a sinus tachycardia of 109bpm, normal axis, no ST elevation or depression. Pt. will be signed out to El Nuno PA-C for CT results and disposition. - Diagnoses Differential Diagnosis: Positive: Bowel Obstruction, Diverticulitis, MT, Pancreatitis, Peptic Ulcer Disease, Urinary Tract Infection Provider Diagnoses: COPD (chronic obstructive pulmonary disease), Alcoholic liver disease, Hypomagnesemia, Alcoholism, Electrolyte abnormality, COPD exacerbation, Hyponatremia, Colitis, Ascites, Hypoxia Discharge - Sign-Out/Discharge Documenting (check all that apply): Patient Departure, Sign-Out Patient Signing out patient TO: El Nuno Patient Received Moderate/Deep Sedation with Procedure: No - Discharge Plan Condition: Fair Disposition: ADMITTED TO [facility] - Billing Disposition and Condition Condition: FAIR Disposition: Admitted to [facility]
[2018-08-07 16:43] LABS: ABS Basophils 0.1 10^3/ul (0-0.2); ABS Lymphocytes 0.9 10^3/ul (1.0-4.8); ABS Monocytes 0.9 10^3/ul (0-0.8); ABS Neutrophils 8.2 10^3/ul (1.5-7.7); Eosinophil % 0.2 %; Hematocrit 42 % (35-47); Hemoglobin 14.5 g/dL (12.0-16.0); Lymphocyte % 8.7 %; Mean Corpuscular HGB Conc 35 g/dL (31-36); Mean Corpuscular Hemoglobin 39 pg (27-31); Mean Corpuscular Volume 113 fL (80-97); Mean Platelet Volume 7.6 fL (7.4-10.4); Nucleated Red Blood Cells % 0.1; Platelet Count 124 10^3/uL (150-450); Red Blood Count 3.69 10^6 /uL (3.70-4.87); Red Cell Distribution Width 15 % (10-15)
[2018-08-07 16:50] LABS: Activated Partial Thrombo Time 38.1 seconds (26.0-38.0); INR 1.09 (0.82-1.09)
[2018-08-07 17:08] LABS: ALT 30 U/L (7-52); AST 89 U/L (13-39); Albumin 3.6 g/dL (3.2-5.2); Albumin/Globulin Ratio 1.4 (1-3); Alkaline Phosphatase 126 U/L (34-104); Anion Gap 13 mmol/L (2-11); BUN/Creatinine Ratio 18.2 (8-20); Blood Urea Nitrogen 6 mg/dL (6-24); C Reactive Protein < 1.00 mg/L (<8.01); CO2 Carbon Dioxide 23 mmol/L (22-32); Calcium 9.2 mg/dL (8.6-10.3); Chloride 89 mmol/L (101-111); EGFR African American 240.5 (>60); EGFR Non-African American 198.8 (>60); Globulin 2.5 g/dL (2-4); Glucose 113 mg/dL (70-100); Magnesium 1.3 mg/dL (1.9-2.7); Potassium 4.4 mmol/L (3.5-5.0); Sodium 125 mmol/L (135-145); Total Protein 6.1 g/dL (6.4-8.9)
[2018-08-07 17:09] LABS: Troponin I 0.01 ng/mL (<0.04)
[2018-08-07] MEDS ORDERED: Iohexol 300* (CONTRAST) 10 ML SDV IV ONE (17:20)
[2018-08-07] MEDS ORDERED: Magnesium Sulfate 2 GM IV* 2 GM/50 ML BAG IVPB ONE (17:22)
[2018-08-07 18:49] LABS: Alcohol 111 mg/dL (<10)
[2018-08-07] MEDS ORDERED: LORazepam TAB(*) 1 MG PO ONE (18:53)
[2018-08-07] MEDS ORDERED: Lorazepam PYXIS KEY PRN ×2 (18:54→20:58)
[2018-08-07] MEDS ORDERED: LORazepam INJ* 2 MG/ML 1 ML VIAL IV ONE ×2 (18:54→20:58)
[2018-08-07] MEDS ORDERED: Lorazepam PYXIS KEY ONE ×2 (18:58→21:28)
[2018-08-07] MEDS ORDERED: Metoclopramide IV* 5 MG/ML 2 ML VIAL IV ONE (20:58)
[2018-08-07 23:42] LABS: Urine Appearance Clear; Urine Bacteria Absent (Absent); Urine Bilirubin Negative (Negative); Urine Blood 1+ (Negative); Urine Color Yellow; Urine Glucose Negative (Negative); Urine Ketones Negative (Negative); Urine Nitrite Negative (Negative); Urine Protein Negative (Negative); Urine Red Blood Cell Trace(0-2/hpf) (Absent); Urine Specific Gravity 1.017 (1.010-1.030); Urine Urobilinogen Negative (Negative); Urine White Blood Cell Trace(0-5/hpf) (Absent)
[2018-08-08] MEDS ORDERED: Albuterol/Ipratropium NEB.SOL* Albuterol 2.5 MG/Ipratropium 0.5 MG 3 ML INH ONE (00:03)
[2018-08-08] MEDS ORDERED: methylPREDNISolone 125 MG* 2 ML VIAL IV ONE ×2 (00:03→00:09)
[2018-08-08] MEDS ORDERED: Amoxicillin/Clavulanate TAB* 875 MG PO ONE (00:15)
[2018-08-08] MEDS ORDERED: Lorazepam PYXIS KEY PRN (00:18)
[2018-08-08] MEDS ORDERED: LORazepam INJ* 2 MG/ML 1 ML VIAL IV ONE (00:18)
--- NOTE | 2018-08-08 01:01 | PN ---
Progress Note - Progress Note Date of Service: 08/08/18 Note: Patient signed out to me by Juanpablo UMANA pending results of CT abdomen and pelvis. CT abdomen and pelvis positive for severe wall thickening of the colon concerning for colitis. Gallbladder mucosal enhancement and marked pericholecystic fluid. Cold cholecystitis cannot be excluded. Small degree of intra-abdominal ascites. Nodular Contour to the liver which may indicate underlying cirrhosis. Ultrasound gallbladder positive for markedly thickened gallbladder wall with sludge. Wall thickening and pericholecystic fluid could also be secondary to ascites. Mild dilatation of CBD. Discussed imaging results with surgery electrical automation engineer Dr. Perez who stated cholecystitis highly unlikely, and even if so no indication for acute treatment. Patient started on Augmentin for colitis. Patient mildly tachycardic, history of same. Vital signs otherwise within normal limits. White count normal. Lactic initially 4.2, improved to 2.8 after 2 L normal saline. Sodium 125. Anion gap 13. Magnesium 1.3. 2 g of magnesium IV administered. Patient O2 sats dropping into mid 80s, patient was placed on 2 L of oxygen. No oxygen at baseline. ABG PO2 56. Chest x-ray positive only for COPD. EKG sinus tachycardia. Patient showed no improvement in symptoms after DuoNeb and Solu-Medrol. Patient admitted to the hospitalist for hypoxia.
[2018-08-08] MEDS ORDERED: Al Hydrox/Mg Hydrox/Simet LIQ* 30 ML UDC PO PRN (02:52)
[2018-08-08] MEDS ORDERED: LORazepam TAB(*) 0.5 MG PO PRN (02:55)
[2018-08-08] MEDS ORDERED: LORazepam TAB(*) 1 MG PO SCH (04:00)
[2018-08-08] MEDS: LORazepam TAB(*) 1 MG PO SCH ×3 (04:29→20:47)
[2018-08-08] MEDS: Lactated Ringers 1000 ML Bag* 1,000 ML IV SCH ×2 (04:30→19:33)
--- NOTE | 2018-08-08 07:05 | HP ---
CC: Dorcas Chan NP * HISTORY AND PHYSICAL: DATE OF ADMISSION: 08/08/18 PRIMARY CARE PROVIDER: Dorcas Chan NP. ATTENDING PHYSICIAN: Dr. Alena Shields * (dictated by Grisel Puckett NP). CHIEF COMPLAINT: Vomiting and abdominal pain. HISTORY OF PRESENT ILLNESS: Ms. Bland is a 68-year-old female, well known to our service, with a history of COPD, alcohol abuse, seizure disorder, hypertension, anxiety, and depression, who presents to the emergency room with 1 day of vomiting and abdominal pain. The patient reports that on 08/06/18, in the evening, she started having some diffuse abdominal pain and multiple episodes of vomiting. She reports the emesis had a coffee ground appearance. She denies any diarrhea, rectal bleeding, or dark tarry stool. She does note a poor appetite and feeling generally weak. I note that the patient was in the emergency room earlier that day after a fall and subsequent right shoulder pain. She continues to complain of pain in that right shoulder, on my exam currently a 5/10. She reports that she falls once every couple of weeks. There are no known precipitating factors for her vomiting and abdominal pain. She had only consumed clear liquids prior to that episode. There were no further episodes on 08/07/18, though she presented to the hospital out of concern. In the emergency room, the patient had labs which were remarkable for a normal H and H, hyponatremia consistent with her baseline, lactic acidosis consistent with her baseline, and hypomagnesemia. She additionally was noted to have ABG PO2 of 56, and at this point is requiring 2 L of oxygen. She had a chest x-ray which was unremarkable and an abdomen pelvis CT which showed concern for colitis. Because of these findings, the hospitalist service was asked to evaluate for admission. PAST MEDICAL HISTORY: 1. COPD. 2. Alcohol abuse. 3. PTSD. 4. Anxiety and depression. 5. Carotid stenosis. 6. Seizure disorder. 7. Hypertension. 8. IBS. PAST SURGICAL HISTORY: 1. Left carotid endarterectomy. 2. Tonsillectomy. 3. Appendectomy. 4. Caesarian section. HOME MEDICATIONS: 1. Albuterol MDI 1 puff q.4 hours p.r.n. shortness of breath and wheezing. 2. Cholecalciferol 2000 units p.o. daily. 3. Vitamin B12 1000 mcg IM monthly. 4. Folic acid 1 mg p.o. daily. 5. Furosemide 20 mg p.o. p.r.n. edema. 6. Lorazepam 0.5 to 1 mg p.o. b.i.d. p.r.n. anxiety. 7. Magnesium oxide 400 mg p.o. daily. 8. Dulera 200/5 two puffs b.i.d. 9. Multivitamin 1 tab p.o. daily. 10. Naproxen 500 mg p.o. q.12 hours p.r.n. pain. 11. Nicotine gum 2 mg p.o. q.2 hours p.r.n. craving. 12. Ondansetron 4 mg p.o. t.i.d. p.r.n. nausea and vomiting. 13. Potassium chloride 40 mEq p.o. daily. 14. Seroquel 50 to 100 mg p.o. at bedtime. 15. Ranitidine 150 mg p.o. daily p.r.n. indigestion. 16. Thiamine 100 mg p.o. daily. 17. Tiotropium 1 cap inhalation daily. 18. Vitamin B complex 1 cap daily. ALLERGIES: DOXYCYCLINE, GABAPENTIN, and PREDNISONE. FAMILY HISTORY: The patient's parents are both alive and living at [facility]. She reports her mother has dementia and her father has a history of hypertension , coronary artery disease, and colon cancer. SOCIAL HISTORY: The patient had been smoking 1 pack per day for approximately 25 years, though recently has decreased to approximately half pack per day. She reports drinking 3 to 5 beers per day. She denies any recreational drug use. She is disabled and lives at home alone. When asked about a surrogate decision maker, she is unable to provider any name. REVIEW OF SYSTEMS: An 11-point review of systems was performed and all the pertinent positive and negative findings are in the HPI, all other systems are negative. PHYSICAL EXAMINATION GENERAL: Ms. Bland is a well-developed, well-nourished, white woman sitting up in bed, in no acute distress. She appears older than her stated age. VITAL SIGNS: Temp 98.7, heart rate 112, respiratory rate 24, oxygen saturation 92% on 2 L, blood pressure 108/84. HEENT: Head is atraumatic, normocephalic. Visual prajapati are grossly intact. Pupils equal, round and reactive to light and accommodation. Extraocular movements intact. Oral mucous membranes are moist and without lesions. NECK: Full range of motion. Thyroid nonpalpable. Trachea midline. No lymphadenopathy. RESPIRATORY: Symmetrical chest expansion. No chest wall deformities. Rhonchi throughout to auscultation. No wheezing or rubs. CARDIOVASCULAR: Tachycardic with a regular rhythm. S1, S2 present. No murmurs , rubs, or gallops. No JVD. ABDOMEN: Soft, nontender to palpation. Bowel sounds normoactive throughout. EXTREMITIES: Skin warm and smooth bilaterally. No edema. No clubbing or cyanosis. Pedal pulses 2+ bilaterally. NEUROLOGIC: Awake, alert, and oriented x4. Cranial nerves II through XII grossly intact. Moves all extremities. SKIN: Grossly intact without lesions. DIAGNOSTIC STUDIES/LAB DATA: WBC 10, RBC 3.69, hemoglobin 14.5, hematocrit 42 , platelets 124, INR 1.09. ABG pH 7.47, ABG PCO2 36, ABG PO2 56, ABG HCO3 26.7. Sodium 125, potassium 4.4, chloride 89, carbon dioxide 23, BUN 6, creatinine 0.33, glucose 113, lactic acid 4.2, repeat lactic acid 2.8, magnesium 1.3, total bili 1.9, AST 89, alk phos 126, troponin 0.01 and second troponin 0.02. Urinalysis unremarkable. Serum alcohol 111. EKG shows sinus tachycardia with a rate of 109, QTc 450. No ST segment changes. Abdomen pelvis CT reads as severe wall thickening of the colon concerning for colitis. Gallbladder mucosal enhancement and marked pericholecystic fluid. Acute cholecystitis cannot be excluded. Correlate clinically with laboratory findings and physical examination. Small degree of intraabdominal ascites. Nodular contour to the liver, which may indicate underlying cirrhosis. Other chronic findings described in the body of the report. Chest x-ray reads as findings consistent with COPD. No evidence of acute disease. Gallbladder ultrasound reads as markedly thickened gallbladder wall with sludge. Wall thickening and pericholecystic fluid could also be secondary to ascites. Mild dilation of common bile duct. ASSESSMENT AND PLAN: Ms. Bland is a 68-year-old female with past medical history of chronic obstructive pulmonary disease, alcohol abuse, seizure disorder, and hypertension, who presented to the emergency room today with complaints of vomiting and abdominal pain and was found to be hypoxic. The patient will be admitted inpatient for: 1. Chronic obstructive pulmonary disease exacerbation. Again, the patient is hypoxic at this point requiring 2 L of oxygen to maintain saturations in the 90s. Her blood gas showed a low PO2, and on exam, lungs are quite rhonchorous. There is no evidence of pneumonia at this point. The patient did receive Solu- Medrol in the emergency room. At this point, I will continue her on prednisone. I should note that the patient does have an allergy to prednisone with the reaction being that it made her feel "weird," although she did tolerate Solu-Medrol in the emergency room, so I think it is certainly reasonable to continue prednisone at this point. I will continue her Dulera and Spiriva. 2. Vomiting and abdominal pain. The patient does have a negative guaiac, and she is not a great historian, so it is unclear if her description of her emesis is accurate. She is not anemic. I think it is possible that she may have developed a gastric ulcer, as she does appear to use naproxen frequently and is a known alcoholic. Her CT scan was concerning for colitis, although she is not actively having any abdominal pain and denies any diarrhea or dark stool. At this point, I will check an H and H in the morning and I have placed her on a clear liquid diet. If she does have any more witnessed episodes of emesis, Gastroenterology may need to be consulted for further evaluation and possible endoscopy, though I will hold off on consultation at this point. 3. Alcohol abuse. The patient is a known alcoholic who does have some history of seizure disorder, which is unclear. I will place her on WAM protocol with lorazepam as well as a lorazepam taper due to her seizure history. I have also placed a social work consult. She is already taking folic acid, thiamine, and a multivitamin at home, so I will continue these as well. 4. Electrolyte abnormalities. The patient does have hyponatremia, which appears to be consistent with her baseline as well as hypomagnesemia, which is also consistent with her baseline. She has been given magnesium in the emergency room, and I will recheck a magnesium in the morning. I suspect that these are both due to her chronic alcoholism, although we will continue to trend. 5. FEN: I will continue the patient on LR at 75 mL per hour at this point due to the concern for possible GI bleed. She does not require any further electrolyte repletion. I have placed her on a clear liquid diet. 6. Code status: The patient will be a full code. 7. DVT prophylaxis: According to the DVT risk assessment, the patient scores a 3 putting her at high risk. I have ordered SCDs but will hold off on any chemical DVT prophylaxis at this point due to possible GI bleed. TIME SPENT: Approximately 70 minutes was spent on this admission, greater than half of that time was spent [id number] with the patient obtaining my history, performing my physical exam, and reviewing the plan of care. This case has been reviewed with my attending, Dr. Shiedls, who is in agreement with the plan of care. GRISEL PUCKETT, EDER [id number]/CPS #: [id number] [place]
[2018-08-08] MEDS: Mometasone/Formoter 200/5 MDI INH SCH ×2 (07:27→19:55)
[2018-08-08] MEDS: Tiotropium CAP.INH* CAP.INH/18 MCG (USE ORDER SET !) INH SCH (07:28)
[2018-08-08 07:32] LABS: ABS Lymphocytes 0.2 10^3/ul (1.0-4.8); ABS Monocytes 0.1 10^3/ul (0-0.8); ABS Neutrophils 4.2 10^3/ul (1.5-7.7); Hematocrit 39 % (35-47); Hemoglobin 13.7 g/dL (12.0-16.0); Lymphocyte % 4.3 %; Mean Corpuscular HGB Conc 35 g/dL (31-36); Mean Corpuscular Hemoglobin 39 pg (27-31); Mean Corpuscular Volume 112 fL (80-97); Nucleated Red Blood Cells % 0.1; Red Blood Count 3.52 10^6 /uL (3.70-4.87); Red Cell Distribution Width 15 % (10-15); White Blood Count 4.5 10^3/uL (3.5-10.8)
[2018-08-08 07:46] LABS: BUN/Creatinine Ratio 13.9 (8-20); Calcium 8.5 mg/dL (8.6-10.3); EGFR African American 217.6 (>60); EGFR Non-African American 179.8 (>60); Magnesium 1.3 mg/dL (1.9-2.7)
[2018-08-08 08:22] LABS: Albumin 3.5 g/dL (3.2-5.2); Albumin/Globulin Ratio 1.4 (1-3); BUN/Creatinine Ratio 13.5 (8-20); Calcium 8.6 mg/dL (8.6-10.3); EGFR African American 210.8 (>60); EGFR Non-African American 174.2 (>60); Globulin 2.5 g/dL (2-4); Total Bilirubin 3.6 mg/dL (0.2-1.0)
[2018-08-08] MEDS ORDERED: Spiriva Inhaler DEVICE* 1 EACH DEVICE INH ONE (09:00)
[2018-08-08] MEDS: Folic Acid TAB* 1 MG PO SCH (09:17)
[2018-08-08] MEDS: Potassium Chlor TAB* 20 MEQ TAB.ER PO SCH (09:18)
[2018-08-08] MEDS: Magnesium Oxide TAB* 400 MG PO SCH (09:18)
[2018-08-08] MEDS: Multivitamins/Minerals TAB PO SCH (09:19)
[2018-08-08] MEDS: predniSONE TAB* 10 MG PO SCH (09:19)
[2018-08-08] MEDS: Thiamine TAB* 100 MG TAB PO SCH (09:19)
[2018-08-08 09:53] LABS: Mean Platelet Volume 7.9 fL (7.4-10.4); Platelet Count 88 10^3/uL (150-450)
[2018-08-08] MEDS ORDERED: Pantoprazole TAB * 40 MG TAB PO ONE (11:57)
[2018-08-08] MEDS: Acetaminophen TAB* 325 MG PO PRN (12:39)
--- NOTE | 2018-08-08 13:32 | PN ---
Subjective Date of Service: 08/08/18 Interval History: Patient reports she has intermittent abdominal pain but states she has this chronically but seems to be worse. Reports LLQ pain currently stating it is / 10 but earlier was 5/10. She has had no further vomiting. She reports diarrhea but states this is her baseline. She denies any fever, chills. reports she has "somewhat of an appetite" Denies SOB. Reports mild cough and sputum production but states this is her baseline. Objective Active Medications: Acetaminophen (Tylenol Tab*) 650 mg PO Q4H PRN PRN Reason: FEVER/PAIN Last Admin: 08/08/18 12:39 Dose: 650 mg Al Hydrox/Mg Hydrox/Simethicone (Maalox Plus*) 30 ml PO Q6H PRN PRN Reason: INDIGESTION Albuterol/Ipratropium (Duoneb (Albuterol 2.5 Mg/Ipratropium 0.5 Mg)) 1 neb INH Q4H PRN PRN Reason: SOB/WHEEZING Folic Acid (Folvite Tab*) 1 mg PO DAILY [facility] Last Admin: 08/08/18 09:17 Dose: 1 mg Lactated Ringer's (Lactated Ringers 1000 Ml Bag*) 1,000 mls @ 75 mls/hr IV PER RATE [facility] Last Admin: 08/08/18 04:30 Dose: 75 mls/hr Ciprofloxacin/Dextrose (Cipro 400 Mg Ivpremix(*)) 400 mg in 200 mls @ 200 mls/ hr IVPB Q12H [facility]; Protocol Metronidazole/Sodium Chloride (Flagyl 500 Mg Ivpb*) 500 mg in 100 mls @ 100 mls /hr IVPB Q8H [facility] Lorazepam (Ativan Tab(*)) 0 - 6 mg PO .PER [place] PROTOCOL [facility]; Protocol Lorazepam (Ativan Tab(*)) 2 mg PO Q8H [facility]; Taper Stop: 08/10/18 23:59 Last Admin: 08/08/18 11:45 Dose: 2 mg Magnesium Oxide (Magox 400 Tab*) 400 mg PO DAILY [facility] Last Admin: 08/08/18 09:18 Dose: 400 mg Miscellaneous (Ativan Pyxis Coleman) 1 ea N/A .ATIVAN IV COLEMAN PRN PRN Reason: PYXIS COLEMAN Mometasone Furoate/Formoterol Fumar (Dulera 200/5 Mdi*) 2 puff INH BID [facility] Last Admin: 08/08/18 07:27 Dose: 2 puff Multivitamins/Minerals (Theragran/Minerals Tab*) 1 tab PO QAM [facility] Last Admin: 08/08/18 09:19 Dose: 1 tab Nicotine Polacrilex (Nicotine Gum*) 2 mg PO Q2H PRN PRN Reason: CRAVINGS Ondansetron HCl (Zofran Inj*) 4 mg IV Q4H PRN PRN Reason: NAUSEA/VOMITING Pantoprazole Sodium (Protonix Tab*) 40 mg PO DAILY [facility] Potassium Chloride (Klor Con Er Tab*) 40 meq PO DAILY [facility] Last Admin: 08/08/18 09:18 Dose: 40 meq Potassium Chloride (Klor Con Er Tab*) 20 meq PO ONCE ONE Stop: 08/08/18 15:01 Prednisone (Deltasone Tab*) 30 mg PO DAILY [facility] Last Admin: 08/08/18 09:19 Dose: 30 mg Quetiapine Fumarate (Seroquel Tab*) 50 mg PO BEDTIME [facility] Thiamine HCl (Vitamin B-1 Tab*) 100 mg PO DAILY [facility] Last Admin: 08/08/18 09:19 Dose: 100 mg Tiotropium [place] (Spiriva Cap.Inh*) 1 cap INH QAM [facility] Last Admin: 08/08/18 07:28 Dose: Not Given Vital Signs - 8 hr 08/08/18 08/08/18 08/08/18 07:10 08:00 09:04 Temperature 97.9 F 98.2 F Pulse Rate 107 107 Respiratory 15 18 18 Rate Blood Pressure 98/64 116/82 (mmHg) O2 Sat by Pulse 93 97 Oximetry 08/08/18 08/08/18 08/08/18 11:08 11:45 13:05 Temperature 98.5 F 98.1 F Pulse Rate 106 108 Respiratory 16 20 15 Rate Blood Pressure 112/78 113/73 (mmHg) O2 Sat by Pulse 95 96 Oximetry 08/08/18 13:19 Temperature Pulse Rate Respiratory 16 Rate Blood Pressure (mmHg) O2 Sat by Pulse Oximetry Oxygen Devices in Use Now: Nasal Cannula - 2L NC Appearance: 68 yo female appears much older than her stated age A+Ox3 Eyes: PERRLA Ears/Nose/Mouth/Throat: - - poor dentition Respiratory: Symmetrical Chest Expansion and Respiratory Effort, Clear to Auscultation Cardiovascular: NL Sounds; No Murmurs; No JVD, RRR, No Edema Abdominal: - - mild distention, soft, mild tenderness in LLQ. No guarding. Extremities: No Edema Neurological: Alert and Oriented x 3, NL Sensation, NL Muscle Strength and Tone Result Diagrams: 08/08/18 07:16 08/08/18 07:57 Microbiology and Other Data: Microbiology 08/08/18 07:46 Stool Occult Blood (KYLIE) - Final Stool 08/07/18 23:06 Stool Occult Blood (KYLIE) - Final Stool Assess/Plan/Problems-Billing Assessment: 68 yo female with a PMH of alcohol abuse, seizure disorder, tobacco abuse, chronically elevated lactic acid , HTN, anxiety, depression who presents to the ER with 1 day of vomiting and abdominal pain found to have possible colitis on CT, possible COPD exacerbation - Patient Problems (1) Abdominal pain Comment: - chronic abdominal pain. It appears she has chronic intermittent vomiting and diarrhea. No further vomiting during hospitalization. Possible coffee ground emesis per patient? Started on PPI. Guiac negative - Possible colitis; CT abd/pelvis showing severe wall thickening of the colon, concerning for colitis, small degree of intra-abdominal ascites, cirrhosis - GB ultrasound showing markedly thickened gallbladder wall with sludge. wall thicken and pericholecystic fluid could be secondary to ascites, mild dilitation of CBD - Plan to treat with cipro, flagyl - send stool cx (2) Alcoholism Comment: - Long-term hx of ETOH abuse; hx of seizures. - continue thiamine, folic acid and mvi - WAM protocol with seizure taper - seizure precautions (3) COPD exacerbation Comment: - Possible exacerbation vs baseline, mild sputum production - ABG on admission showing hypoxia; repeat shows improvement - O2 sat 94% on 2L NC. This appears to be her chronic baseline - cont prednisone and cont nebs, no evidence of infection - send sputum cx (4) Alcoholic liver disease Comment: with mild LFT's elevation, and throbocytopenia. (5) Elevated lactic acid level Comment: - Chronic Type B lactic acidosis due to starvation ketosis and dehydration in combination to pt with liver disease (6) Fracture, humerus Comment: Right arm deformity due to chronic fx. s/p right humerus fracture on 10/29/17, re-fracture 05/29/18. Pt has been followed by [facility] (Dr. Arias?) who recommends surgery with rods and pinning - pt is refusing as she doesnt want to go to rehab. (7) Tobacco user Comment: Pt advised to quit smoking and avoid second hand smoke. NRT ordered. (8) Full code status Comment: (9) DVT prophylaxis Comment: SCDs only Status and Disposition: OBV. Home when medically stable.
[2018-08-08] MEDS: metroNIDAZOLE IV 500 MG/100ML* 500 MG/100 ML BAG IVPB SCH ×2 (14:14→20:48)
[2018-08-08] MEDS ORDERED: Potassium Chlor TAB* 20 MEQ TAB.ER PO ONE (15:00)
[2018-08-08] MEDS: Ciprofloxacin 400MG IVPREMIX(* 400 MG/200 ML BAG IVPB SCH (16:53)
[2018-08-08] MEDS: Nicotine* 2MG (FRUIT FLAVOR) GUM PO PRN (17:00)
[2018-08-08] MEDS: QUEtiapine TAB* 25 MG PO SCH (20:48)
[2018-08-09] MEDS: metroNIDAZOLE IV 500 MG/100ML* 500 MG/100 ML BAG IVPB SCH ×2 (05:11→14:53)
[2018-08-09 05:56] LABS: Albumin 2.7 g/dL (3.2-5.2); Albumin/Globulin Ratio 1.4 (1-3); BUN/Creatinine Ratio 18.8 (8-20); Calcium 8.2 mg/dL (8.6-10.3); EGFR African American 249.2 (>60); Globulin 1.9 g/dL (2-4); Magnesium 1.2 mg/dL (1.9-2.7); Total Bilirubin 2.5 mg/dL (0.2-1.0); Total Protein 4.6 g/dL (6.4-8.9)
[2018-08-09 05:59] LABS: Potassium 2.7 mmol/L (3.5-5.0)
[2018-08-09 06:01] LABS: Hematocrit 31 % (35-47); Mean Corpuscular HGB Conc 35 g/dL (31-36); Mean Corpuscular Hemoglobin 39 pg (27-31); Mean Corpuscular Volume 112 fL (80-97); Mean Platelet Volume 8.2 fL (7.4-10.4); Platelet Count 67 10^3/uL (150-450); Red Blood Count 2.78 10^6 /uL (3.70-4.87); Red Cell Distribution Width 14 % (10-15); White Blood Count 4.5 10^3/uL (3.5-10.8)
[2018-08-09] MEDS ORDERED: Magnesium Sulfate 2 GM IV* 2 GM/50 ML BAG IVPB ONE (06:03)
[2018-08-09] MEDS ORDERED: Potassium Chlor TAB* 20 MEQ TAB.ER PO ONE (06:04)
[2018-08-09] MEDS ORDERED: KCL 20 MEQ/100 ML IVPREMIX* 20 MEQ/100 ML BAG IV ONE (06:04)
[2018-08-09 06:27] LABS: ABS Lymphocytes 0.8 10^3/ul (1.0-4.8); ABS Monocytes 0.4 10^3/ul (0-0.8); ABS Neutrophils 3.4 10^3/ul (1.5-7.7); Eosinophil % 0.4 %; Lymphocyte % 17.1 %; Nucleated Red Blood Cells % 0.2
[2018-08-09] MEDS: Ciprofloxacin 400MG IVPREMIX(* 400 MG/200 ML BAG IVPB SCH (06:49)
[2018-08-09] MEDS: Mometasone/Formoter 200/5 MDI INH SCH ×2 (07:53→20:29)
[2018-08-09] MEDS: Tiotropium CAP.INH* CAP.INH/18 MCG (USE ORDER SET !) INH SCH (07:53)
--- NOTE | 2018-08-09 08:35 | PN ---
Subjective Date of Service: 08/09/18 Interval History: patient denies any withdrawal symptoms.She reports she continues to have worsening abdominal pain and diarrhea above her baseline. She reports she has lower abdomen 'cramping" like menstrual cramps. denies any fever or chills. No further vomiting. Denies sob. little sputum production which she states is her baseline. Objective Active Medications: Acetaminophen (Tylenol Tab*) 650 mg PO Q4H PRN PRN Reason: FEVER/PAIN Last Admin: 08/08/18 12:39 Dose: 650 mg Al Hydrox/Mg Hydrox/Simethicone (Maalox Plus*) 30 ml PO Q6H PRN PRN Reason: INDIGESTION Albuterol/Ipratropium (Duoneb (Albuterol 2.5 Mg/Ipratropium 0.5 Mg)) 1 neb INH Q4H PRN PRN Reason: SOB/WHEEZING Folic Acid (Folvite Tab*) 1 mg PO DAILY [facility] Last Admin: 08/08/18 09:17 Dose: 1 mg Lactated Ringer's (Lactated Ringers 1000 Ml Bag*) 1,000 mls @ 75 mls/hr IV PER RATE [facility] Last Admin: 08/08/18 19:33 Dose: 75 mls/hr Ciprofloxacin/Dextrose (Cipro 400 Mg Ivpremix(*)) 400 mg in 200 mls @ 200 mls/ hr IVPB Q12H [facility]; Protocol Last Admin: 08/09/18 06:49 Dose: 200 mls/hr Metronidazole/Sodium Chloride (Flagyl 500 Mg Ivpb*) 500 mg in 100 mls @ 100 mls /hr IVPB Q8H [facility] Last Admin: 08/09/18 05:11 Dose: 100 mls/hr Lorazepam (Ativan Tab(*)) 0 - 6 mg PO .PER [place] PROTOCOL [facility]; Protocol Lorazepam (Ativan Tab(*)) 2 mg PO Q12H [facility]; Taper Stop: 08/10/18 23:59 Last Admin: 08/08/18 20:47 Dose: 2 mg Magnesium Oxide (Magox 400 Tab*) 400 mg PO DAILY [facility] Last Admin: 08/08/18 09:18 Dose: 400 mg Miscellaneous (Ativan Pyxis Coleman) 1 ea N/A .ATIVAN IV COLEMAN PRN PRN Reason: PYXIS COLEMAN Mometasone Furoate/Formoterol Fumar (Dulera 200/5 Mdi*) 2 puff INH BID [facility] Last Admin: 08/09/18 07:53 Dose: Not Given Multivitamins/Minerals (Theragran/Minerals Tab*) 1 tab PO QAM [facility] Last Admin: 08/08/18 09:19 Dose: 1 tab Nicotine Polacrilex (Nicotine Gum*) 2 mg PO Q2H PRN PRN Reason: CRAVINGS Last Admin: 08/08/18 17:00 Dose: 2 mg Ondansetron HCl (Zofran Inj*) 4 mg IV Q4H PRN PRN Reason: NAUSEA/VOMITING Pantoprazole Sodium (Protonix Tab*) 40 mg PO DAILY [facility] Potassium Chloride (Klor Con Er Tab*) 40 meq PO DAILY [facility] Last Admin: 08/08/18 09:18 Dose: 40 meq Prednisone (Deltasone Tab*) 30 mg PO DAILY [facility] Last Admin: 08/08/18 09:19 Dose: 30 mg Quetiapine Fumarate (Seroquel Tab*) 50 mg PO BEDTIME [facility] Last Admin: 08/08/18 20:48 Dose: 50 mg Thiamine HCl (Vitamin B-1 Tab*) 100 mg PO DAILY [facility] Last Admin: 08/08/18 09:19 Dose: 100 mg Tiotropium [place] (Spiriva Cap.Inh*) 1 cap INH QAM [facility] Last Admin: 08/09/18 07:53 Dose: Not Given Vital Signs - 8 hr 08/09/18 08/09/18 08/09/18 01:00 01:09 01:17 Temperature 98.5 F Pulse Rate 92 96 Respiratory 20 20 Rate Blood Pressure 63/47 124/57 (mmHg) O2 Sat by Pulse 99 Oximetry 08/09/18 08/09/18 08/09/18 03:00 03:14 03:15 Temperature 98.7 F 97.9 F Pulse Rate 93 74 Respiratory 20 20 16 Rate Blood Pressure 151/59 106/61 (mmHg) O2 Sat by Pulse 95 98 Oximetry 08/09/18 08/09/18 08/09/18 05:00 05:08 07:00 Temperature 98.3 F Pulse Rate 85 Respiratory 20 20 20 Rate Blood Pressure 140/69 (mmHg) O2 Sat by Pulse 99 Oximetry Oxygen Devices in Use Now: Nasal Cannula Appearance: chronically ill 68 yo female A+O x3 sitting up in bed in nad Eyes: PERRLA Ears/Nose/Mouth/Throat: - - Poor dentition Respiratory: Symmetrical Chest Expansion and Respiratory Effort, Clear to Auscultation Cardiovascular: NL Sounds; No Murmurs; No JVD, RRR, No Edema, - Abdominal: - - distended abdomen, soft, nontender, difficult to ausculate BS Extremities: - - RUE deformity 2nd to fracture - Neurological: Alert and Oriented x 3, NL Gait - side by assist with walker, NL Muscle Strength and Tone Lines/Tubes/Other Access: Clean, Dry and Intact Peripheral IV Nutrition: Taking PO's Result Diagrams: 08/09/18 05:03 08/09/18 05:03 Microbiology and Other Data: Microbiology 08/08/18 07:46 Stool Occult Blood (KYLIE) - Final Stool 08/07/18 23:06 Stool Occult Blood (KYLIE) - Final Stool Assess/Plan/Problems-Billing Assessment: 68 yo female with a PMH of alcohol abuse, seizure disorder, tobacco abuse, chronically elevated lactic acid , HTN, anxiety, depression who presents to the ER with 1 day of vomiting and abdominal pain found to have possible colitis on CT, possible COPD exacerbation - Patient Problems (1) Abdominal pain Comment: - chronic abdominal pain, possible worse above her baseline. It appears she has chronic intermittent vomiting and diarrhea likely 2nd to alcohol abuse. No further vomiting during hospitalization. Pt reports possible coffee ground emesis. Started on PPI. 2nd Guiac positive - Possible colitis; CT abd/pelvis showing severe wall thickening of the colon, concerning for colitis, small degree of intra-abdominal ascites, cirrhosis - GB ultrasound showing markedly thickened gallbladder wall with sludge. wall thicken and pericholecystic fluid could be secondary to ascites, mild dilitation of CBD - cipro, flagyl started 08/08 - send stool cx (2) Alcoholism Comment: - not scoring on WAM per nursing staff; she does not appear to be withdrawling on exam - Long-term hx of ETOH abuse; hx of seizures. - continue thiamine, folic acid and mvi - WAM protocol with seizure taper - seizure precautions (3) Electrolyte abnormality Comment: - Continue electrlyte replacement (4) COPD exacerbation Comment: - Possible exacerbation vs baseline, mild sputum production - ABG on admission showing hypoxia; repeat shows improvement - O2 sat 94% on 2L NC. This appears to be her chronic baseline - cont prednisone and cont nebs, no evidence of infection - send sputum cx (5) Alcoholic liver disease Comment: with mild LFT's elevation, and thrombocytopenia. (6) Elevated lactic acid level Comment: - Chronic Type B lactic acidosis due to starvation ketosis and dehydration in combination to pt with liver disease (7) Fracture, humerus Comment: Right arm deformity due to chronic fx. s/p right humerus fracture on 10/29/17, re-fracture 05/29/18. Pt has been followed by [facility] (Dr. Arias?) who recommends surgery with rods and pinning - pt was refusing rehab and therefore the surgery which she told me yesterday- today she states she would have the surgery and rehab and that her CAP nurse and primary are helping her set this up in [place]. (8) Tobacco user Comment: Pt advised to quit smoking and avoid second hand smoke. NRT ordered. (9) Full code status Comment: (10) DVT prophylaxis Comment: SCDs only Status and Disposition: OBV. Home when medically stable. Cap nurse following
[2018-08-09] MEDS: Pantoprazole TAB * 40 MG TAB PO SCH (08:58)
[2018-08-09] MEDS: Thiamine TAB* 100 MG TAB PO SCH (08:58)
[2018-08-09] MEDS: Magnesium Oxide TAB* 400 MG PO SCH (08:58)
[2018-08-09] MEDS: Folic Acid TAB* 1 MG PO SCH (08:58)
[2018-08-09] MEDS: LORazepam TAB(*) 1 MG PO SCH ×2 (08:59→20:15)
[2018-08-09] MEDS: Multivitamins/Minerals TAB PO SCH (08:59)
[2018-08-09] MEDS: predniSONE TAB* 10 MG PO SCH (08:59)
[2018-08-09] MEDS: Potassium Chlor TAB* 20 MEQ TAB.ER PO SCH (08:59)
[2018-08-09] MEDS: Nicotine* 2MG (FRUIT FLAVOR) GUM PO PRN ×2 (09:06→19:12)
[2018-08-09 12:28] LABS: BUN/Creatinine Ratio 18.8 (8-20); Calcium 8.4 mg/dL (8.6-10.3); EGFR African American 249.2 (>60); Magnesium 1.7 mg/dL (1.9-2.7); Potassium 3.5 mmol/L (3.5-5.0)
[2018-08-09] MEDS ORDERED: Magnesium Sulfate 1 GM IV* 1 GM/100 ML BAG IV ONE (15:00)
[2018-08-09] MEDS: Albuterol/Ipratropium NEB.SOL* Albuterol 2.5 MG/Ipratropium 0.5 MG 3 ML INH PRN (16:02)
--- NOTE | 2018-08-09 16:19 | CONS ---
GASTROENTEROLOGY CONSULT: DATE: 08/09/18 REFERRING PHYSICIANS: Dr. Alena Shields; Dorcas Chan NP REASON FOR CONSULTATION: A 68-year-old woman admitted with coffee-ground emesis and report of chronic abdominal pain. HISTORY: This woman with chronic alcoholism, alcoholic liver disease with retained synthetic function, COPD, ongoing smoking, right humeral fracture that is unrepaired and contracted, lives alone with assistance of visiting nurses organized through the hospital. On the day of presentation, she had been out in town grocery shopping and then developed nausea and vomiting and upper abdominal pain. That was followed by diarrhea. She came into the emergency room and reported coffee-ground emesis (uses that phrase now) She was afebrile , white count 10, and LFTs abnormal with bilirubin 1.9 and ALT 30, AST 89 CT scan showed considerable vascular calcification, thickened gallbladder wall, some ascites, and colon was diffusely thickened. Since admission, there has been no further emesis and she has been afebrile, no further observed emesis. She has not been withdrawing from alcohol obviously. Her stool has been brownish yellow with no particular aroma. No blood has been seen. Stool Hemoccult has been positive after an initial negative. PAST MEDICAL HISTORY: 1. COPD. 2. Alcohol abuse - 29 of 30 EtOH levels since 2011 have been extremely high including 415 as recently as May 2017, though she minimizes the amount today. 3. Alcoholic liver disease - her AST/ALT ratio has been consistent with this and bilirubin is slightly up. Her INR, however, continues to be normal just 2 days ago 1.09. 4. Chronic abdominal pain - reported frequently. It is difficult to get a read on this. She reports that in the 1980s upper endoscopy at the hospital here by me was normal as to GI findings.It however resulted in great distress afterwards. Her description is nonspecific, but may reflect conjunctival hemorrhage. It is not in the current database 5. C-sections - status post 2. 6. Heme-positive stool - of 6 or 7 Hemoccults since 2012 in the system approximately half have been positive. She reports that an attempt at colonoscopy in 1996 at [facility] was unsuccessful secondary to pelvic adhesions attributed to the C-sections. She then had an attempt at [facility] and says that was unsuccessful also. Those records are not available. 7. Carotid endarterectomy. 8. Appendectomy. 9. C sections x2 Tubal ligation OUTPATIENT MEDICATIONS: She takes aspirin for headaches or her right arm pain emphasizing that it is rare, but then acknowledging it may be twice a week. Her list has taking vitamin D; magnesium oxide; lorazepam; Seroquel; Zantac as needed. She had denied Aleve or naproxen, though the latter is listed 500 mg every 12 hours. Confirmation from the visiting nurses awaited SOCIAL HISTORY: She lives alone. She is an alcoholic drinking beer. There are several documents in the record regarding her capacity for medical decision making including a 2015 court petition from her daughter, Kalie Hernandez, regarding treatment against the patient's wishes. A consult on 02/03/17 from Lore Cardoso NP with Trav Balderrama MD, determined that she was competent to make decisions refusing care at that time. It referenced her relationship with a psychologist, Dr Wong Hamilton, as an outpatient. She has been with [facility] for over [address], [address] Dr. Mccall, then TOMASA Zaragoza and then Dorcas Chan NP. REVIEW OF SYSTEMS: No history of seizure, TIA, CVA, syncope (as opposed to falls), SC, TB, viral hepatitis, or gastrointestinal overt bleeding. EXAM: She is a chronically ill-appearing woman, in bed alert and quite exuberant and conversant and having fairly good recall for many distant events. HEENT exam shows muddy sclerae, but no overt icterus. Mucous membranes are normal. She has no adenopathy. Breath sounds are equal bilaterally, but exam is limited by her being in bed. Heart sounds are regular. The abdomen is mildly rounded, protuberant with no collaterals and active bowel sounds that are normal in character. The liver edge is slightly knobby but not tender. There is no tenderness at all. She was positioned left side down with a nurse assisting and digital rectal shows slightly reduce anal tone, but certainly present with a adequate squeeze and the mucosa is smooth and there is little bit of mucoid brown stool with no odor. Culture is pending. Extremities show gross distortion of her right upper arm, nicotine stains on her left hand, no edema, and gait was not tested. She is certainly awake and alert and this time not tremorous. LABS: Hemoglobin 11.0, hematocrit 31 thirty six hours after admission with MCV 112, platelets 67. Sodium 132, potassium 3.5, creatinine 0.32, BUN 6. Albumin 2.7. AST 45, ALT 19, bilirubin 2.50. CRP less than 1. TSH last measured October 2017, 2.06. B12 yesterday 329. Celiac panel September 2013 negative. A parasite exam was sent January 2017 and was negative. IMPRESSION: This 68-year-old chronic alcoholic and smoker is admitted with some coffee-ground emesis. She uses a fair amount of aspirin at home, but has not been having any previous overt gastrointestinal active bleeding. With her multiple severe problems, ongoing smoking and chronic obstructive pulmonary disease and anxiety regarding procedures including a gastroscopy that was done over 30 years ago, empiric PPI treatment and eliminating aspirin would appear to be an acceptable strategy. Most likely, the nausea and vomiting during admission was related to gastritis. It could have related to biliary tract disease, but at the moment her abdomen is rather benign and it seems likely that alcoholic hepatitis and ascites is worsening the appearance of the gallbladder on imaging. There likely is underlying sludge, but probably not acute or smoldering cholecystitis. Similarly, the appearance of the colon radiographically seems worse than her clinical status. It would be to her advantage to be under highly supervised care for a period of time to restrict aspirin and alcohol. Under decades of extreme alcohol stress, the extent of her alcoholic liver disease appears actually fairly mild based on the INR and relatively low bilirubin. At this time, no endoscopic workup is proposed. The uncertainty that engenders would just have to be accepted using empiric PPI treatment and orthopedic care choices hopefully can minimize the need for prophylactic anticoagulation at least until the aspirin effect has healed. [id number]/[facility] #: [id number] [facility] HOSPITALNelia
[2018-08-09] MEDS: Acetaminophen TAB* 325 MG PO PRN (18:56)
[2018-08-09] MEDS: Ondansetron INJ* 2 MG/ML VIAL IV PRN (18:56)
[2018-08-09] MEDS: cefTRIAXone(*) 1 GM in NS 0.9% 50 ML* 50 ML IVPB SCH (19:01)
[2018-08-09] MEDS: QUEtiapine TAB* 25 MG PO SCH (20:16)
[2018-08-10 05:54] LABS: ABS Eosinophils 0.1 10^3/ul (0-0.6); ABS Monocytes 0.3 10^3/ul (0-0.8); ABS Neutrophils 2.4 10^3/ul (1.5-7.7); Eosinophil % 1.4 %; Hematocrit 32 % (35-47); Hemoglobin 11.3 g/dL (12.0-16.0); Lymphocyte % 25.6 %; Mean Corpuscular HGB Conc 35 g/dL (31-36); Mean Corpuscular Hemoglobin 40 pg (27-31); Mean Corpuscular Volume 113 fL (80-97); Mean Platelet Volume 8.1 fL (7.4-10.4); Nucleated Red Blood Cells % 0.1; Platelet Count 67 10^3/uL (150-450); Red Blood Count 2.84 10^6 /uL (3.70-4.87); Red Cell Distribution Width 15 % (10-15); White Blood Count 3.8 10^3/uL (3.5-10.8)
[2018-08-10] MEDS: Artificial Tears* 15 ML BTL BOTH EYES PRN ×2 (06:02→23:05)
[2018-08-10] MEDS: Nicotine* 2MG (FRUIT FLAVOR) GUM PO PRN ×3 (06:02→23:05)
[2018-08-10 06:06] LABS: BUN/Creatinine Ratio 14.7 (8-20); Calcium 8.3 mg/dL (8.6-10.3); EGFR African American 232.4 (>60); EGFR Non-African American 192.1 (>60); Magnesium 1.4 mg/dL (1.9-2.7); Potassium 2.8 mmol/L (3.5-5.0)
[2018-08-10] MEDS: Mometasone/Formoter 200/5 MDI INH SCH ×2 (07:43→19:06)
[2018-08-10] MEDS: Tiotropium CAP.INH* CAP.INH/18 MCG (USE ORDER SET !) INH SCH (07:44)
[2018-08-10] MEDS: LORazepam TAB(*) 1 MG PO SCH ×2 (07:47→21:00)
[2018-08-10] MEDS ORDERED: Magnesium Sulfate 2 GM IV* 2 GM/50 ML BAG IVPB ONE (08:00)
--- NOTE | 2018-08-10 08:41 | PN ---
Subjective Date of Service: 08/10/18 Interval History: patient reports she feels better today. less lower abdominal pain today. denies dysuria or blood in her urine. no vomiting/abdominal pain. denies fever or chills. Objective Active Medications: Acetaminophen (Tylenol Tab*) 650 mg PO Q4H PRN PRN Reason: FEVER/PAIN Last Admin: 08/09/18 18:56 Dose: 650 mg Al Hydrox/Mg Hydrox/Simethicone (Maalox Plus*) 30 ml PO Q6H PRN PRN Reason: INDIGESTION Albuterol/Ipratropium (Duoneb (Albuterol 2.5 Mg/Ipratropium 0.5 Mg)) 1 neb INH Q4H PRN PRN Reason: SOB/WHEEZING Last Admin: 08/09/18 16:02 Dose: 1 neb Folic Acid (Folvite Tab*) 1 mg PO DAILY [facility] Last Admin: 08/09/18 08:58 Dose: 1 mg Ceftriaxone Sodium 1 gm/ (Sodium Chloride) 50 mls @ 200 mls/hr IVPB Q24H [facility] Last Admin: 08/09/18 19:01 Dose: 200 mls/hr Magnesium Sulfate (Magnesium Sulfate 2 Gm Iv*) 2 gm in 50 mls @ 50 mls/hr IVPB ONCE ONE Stop: 08/10/18 08:59 Lorazepam (Ativan Tab(*)) 0 - 6 mg PO .PER [facility] PROTOCOL [facility]; Protocol Lorazepam (Ativan Tab(*)) 1 mg PO Q12H [facility]; Taper Stop: 08/10/18 23:59 Last Admin: 08/10/18 07:47 Dose: 1 mg Magnesium Oxide (Magox 400 Tab*) 800 mg PO DAILY [facility] Miscellaneous (Ativan Pyxis Coleman) 1 ea N/A .ATIVAN IV COLEMAN PRN PRN Reason: PYXIS COLEMAN Mometasone Furoate/Formoterol Fumar (Dulera 200/5 Mdi*) 2 puff INH BID [facility] Last Admin: 08/10/18 07:43 Dose: Not Given Multivitamins/Minerals (Theragran/Minerals Tab*) 1 tab PO QAM [facility] Last Admin: 08/09/18 08:59 Dose: 1 tab Nicotine Polacrilex (Nicotine Gum*) 2 mg PO Q2H PRN PRN Reason: CRAVINGS Last Admin: 08/10/18 06:02 Dose: 2 mg Ondansetron HCl (Zofran Inj*) 4 mg IV Q4H PRN PRN Reason: NAUSEA/VOMITING Last Admin: 08/09/18 18:56 Dose: 4 mg Pantoprazole Sodium (Protonix Tab*) 40 mg PO DAILY [facility] Last Admin: 08/09/18 08:58 Dose: 40 mg Polyvinyl Alcohol (Polyvinyl Alcohol 1.4% Opth*) 1 drop BOTH EYES Q4H PRN PRN Reason: DRY EYE Last Admin: 08/10/18 06:02 Dose: 1 drp Potassium Chloride (Klor Con Er Tab*) 40 meq PO DAILY [facility] Last Admin: 08/09/18 08:59 Dose: 40 meq Potassium Chloride (Klor Con Er Tab*) 40 meq PO ONCE ONE Stop: 08/10/18 09:01 Prednisone (Deltasone Tab*) 20 mg PO DAILY [facility] Quetiapine Fumarate (Seroquel Tab*) 50 mg PO BEDTIME [facility] Last Admin: 08/09/18 20:16 Dose: 50 mg Thiamine HCl (Vitamin B-1 Tab*) 100 mg PO DAILY [facility] Last Admin: 08/09/18 08:58 Dose: 100 mg Tiotropium Clayton (Spiriva Cap.Inh*) 1 cap INH QAM [facility] Last Admin: 08/10/18 07:44 Dose: Not Given Vital Signs - 8 hr 08/10/18 08/10/18 08/10/18 01:00 05:06 07:47 Temperature 98.6 F Pulse Rate 82 Respiratory 18 18 18 Rate Blood Pressure 153/67 (mmHg) O2 Sat by Pulse 100 Oximetry Oxygen Devices in Use Now: None Appearance: A+O x3 in NAD sitting up on the side of bed. Eyes: No Scleral Icterus, PERRLA Ears/Nose/Mouth/Throat: NL Teeth, Lips, Gums, Mucous Membranes Moist Neck: NL Appearance and Movements; NL JVP Respiratory: Symmetrical Chest Expansion and Respiratory Effort, Clear to Auscultation Cardiovascular: NL Sounds; No Murmurs; No JVD, RRR, No Edema Abdominal: - - distended; soft, nontender Extremities: No Edema, No Clubbing, Cyanosis Neurological: Alert and Oriented x 3, NL Sensation, NL Muscle Strength and Tone Lines/Tubes/Other Access: Clean, Dry and Intact Peripheral IV Nutrition: Taking PO's Result Diagrams: 08/10/18 05:34 08/10/18 05:34 Microbiology and Other Data: Microbiology 08/08/18 07:46 Stool Occult Blood (KYLIE) - Final Stool 08/07/18 23:06 Stool Occult Blood (KYLIE) - Final Stool Assess/Plan/Problems-Billing Assessment: 68 yo female with a PMH of alcohol abuse, seizure disorder, tobacco abuse, chronically elevated lactic acid , HTN, anxiety, depression who presents to the ER with 1 day of vomiting and abdominal pain found to have possible colitis on CT, possible COPD exacerbation - Patient Problems (1) Abdominal pain Comment: - acute on chronic abdominal pain, possible worse above her baseline. Possible UTI vs gastritis. It appears she has chronic intermittent vomiting and diarrhea likely 2nd to alcohol abuse. No further vomiting during hospitalization. Pt reports possible coffee ground emesis at home 1 day prior to admission and none since. Started on PPI. 2nd Guiac positive - CT abd/pelvis showing severe wall thickening of the colon, concerning for colitis, small degree of intra-abdominal ascites, cirrhosis - GB ultrasound showing markedly thickened gallbladder wall with sludge. wall thicken and pericholecystic fluid could be secondary to ascites, mild dilitation of CBD - cipro, flagyl started 08/08 - per GI ok to DC abx - think more than likey this is gastritis - stool cx penidng - Appreciate GI consult - recommends no scope at this time; continue PPI and avoid NSAIDs/ASA - Positive ecoli UTI - possible cause of abdominal pain - it is hard to determine as she soils her briefs with stool - plan to treat UTI (2) Alcoholism Comment: - not scoring on WAM per nursing staff; she does not appear to be withdrawling on exam - Long-term hx of ETOH abuse; hx of seizures. - continue thiamine, folic acid and mvi - WAM protocol with seizure taper - seizure precautions (3) Electrolyte abnormality Comment: - Continue electrlyte replacement (4) COPD exacerbation Comment: - resolved. at baseline (5) Alcoholic liver disease Comment: with mild LFT's elevation, and thrombocytopenia. (6) Elevated lactic acid level Comment: - Chronic Type B lactic acidosis due to starvation ketosis and dehydration in combination to pt with liver disease (7) Fracture, humerus Comment: Right arm deformity due to chronic fx. s/p right humerus fracture on 10/29/17, re-fracture 05/29/18. Pt has been followed by [facility] (Dr. Arias?) who recommends surgery with rods and pinning - pt was refusing rehab and therefore the surgery which she told me yesterday- today she states she would have the surgery and rehab and that her CAP nurse and primary are helping her set this up in [place]. (8) Tobacco user Comment: Pt advised to quit smoking and avoid second hand smoke. NRT ordered. (9) Full code status Comment: (10) DVT prophylaxis Comment: SCDs only Status and Disposition: OBV. Home when medically stable, possibly tomorrow vs assisted living? will discuss with CAP RN tomorrow
[2018-08-10] MEDS: Folic Acid TAB* 1 MG PO SCH (08:43)
[2018-08-10] MEDS: Multivitamins/Minerals TAB PO SCH (08:43)
[2018-08-10] MEDS: Magnesium Oxide TAB* 400 MG PO SCH (08:43)
[2018-08-10] MEDS: Pantoprazole TAB * 40 MG TAB PO SCH (08:44)
[2018-08-10] MEDS: predniSONE TAB* 20 MG PO SCH (08:44)
[2018-08-10] MEDS: Thiamine TAB* 100 MG TAB PO SCH (08:44)
[2018-08-10] MEDS ORDERED: Potassium Chlor TAB* 20 MEQ TAB.ER PO ONE (09:00)
[2018-08-10] MEDS: Potassium Chlor TAB* 20 MEQ TAB.ER PO SCH (10:28)
[2018-08-10] MEDS: Acetaminophen TAB* 325 MG PO PRN ×2 (10:37→23:05)
[2018-08-10] MEDS: Ondansetron INJ* 2 MG/ML VIAL IV PRN (14:45)
[2018-08-10] MEDS: cefTRIAXone(*) 1 GM in NS 0.9% 50 ML* 50 ML IVPB SCH (18:48)
[2018-08-10] MEDS: Albuterol/Ipratropium NEB.SOL* Albuterol 2.5 MG/Ipratropium 0.5 MG 3 ML INH PRN (19:05)
[2018-08-10] MEDS: QUEtiapine TAB* 25 MG PO SCH (22:58)
[2018-08-11 06:51] LABS: BUN/Creatinine Ratio 17.9 (8-20); Calcium 8.5 mg/dL (8.6-10.3); EGFR African American 198.4 (>60); EGFR Non-African American 163.9 (>60); Magnesium 1.4 mg/dL (1.9-2.7); Potassium 2.8 mmol/L (3.5-5.0)
[2018-08-11 06:59] LABS: ABS Eosinophils 0.1 10^3/ul (0-0.6); ABS Monocytes 0.4 10^3/ul (0-0.8); ABS Neutrophils 2.3 10^3/ul (1.5-7.7); Eosinophil % 2.3 %; Hematocrit 33 % (35-47); Hemoglobin 11.6 g/dL (12.0-16.0); Lymphocyte % 26.5 %; Mean Corpuscular HGB Conc 35 g/dL (31-36); Mean Corpuscular Hemoglobin 40 pg (27-31); Mean Corpuscular Volume 113 fL (80-97); Mean Platelet Volume 7.9 fL (7.4-10.4); Nucleated Red Blood Cells % 0.2; Platelet Count 59 10^3/uL (150-450); Red Blood Count 2.93 10^6 /uL (3.70-4.87); Red Cell Distribution Width 15 % (10-15); White Blood Count 3.7 10^3/uL (3.5-10.8)
[2018-08-11] MEDS ORDERED: Potassium Chlor TAB* 20 MEQ TAB.ER PO ONE ×2 (07:58→12:00)
[2018-08-11] MEDS: Tiotropium CAP.INH* CAP.INH/18 MCG (USE ORDER SET !) INH SCH (08:25)
[2018-08-11] MEDS: Mometasone/Formoter 200/5 MDI INH SCH ×2 (08:26→20:34)
[2018-08-11] MEDS ORDERED: Magnesium Sulfate IV* 3 GM in NS 0.9% 100 ML* 100 ML IVPB ONE (08:30)
[2018-08-11] MEDS: Folic Acid TAB* 1 MG PO SCH (09:28)
[2018-08-11] MEDS: Magnesium Oxide TAB* 400 MG PO SCH (09:28)
[2018-08-11] MEDS: predniSONE TAB* 20 MG PO SCH (09:28)
[2018-08-11] MEDS: Potassium Chlor TAB* 20 MEQ TAB.ER PO SCH (09:28)
[2018-08-11] MEDS: Pantoprazole TAB * 40 MG TAB PO SCH (09:29)
[2018-08-11] MEDS: Multivitamins/Minerals TAB PO SCH (09:29)
[2018-08-11] MEDS: Thiamine TAB* 100 MG TAB PO SCH (09:29)
[2018-08-11] MEDS: Acetaminophen TAB* 325 MG PO PRN ×2 (11:39→21:37)
[2018-08-11] MEDS: Nicotine* 2MG (FRUIT FLAVOR) GUM PO PRN ×4 (11:39→23:15)
[2018-08-11] MEDS: Artificial Tears* 15 ML BTL BOTH EYES PRN ×2 (11:43→17:17)
--- NOTE | 2018-08-11 13:46 | PN ---
Subjective Date of Service: 08/11/18 Interval History: . patient is teary on exam today reporting she is very anxious; she take 0.5 mg ativan at home 1-2x/day prn which she has not been getting since admission. She reports that after talking with Dr. Kaminski she now wants to have her arm surgical repair here in [place] and agrees to go to rehab. She denies any further vomiting since prior to admission. we dicussed she needs to avoid asa, and nsaids as these increase her risk of bleeding along with alcohol abuse - she states understanding. Lower abdominal discomfort is resolved today - no cramping Objective Active Medications: Acetaminophen (Tylenol Tab*) 650 mg PO Q4H PRN PRN Reason: FEVER/PAIN Last Admin: 08/11/18 11:39 Dose: 650 mg Al Hydrox/Mg Hydrox/Simethicone (Maalox Plus*) 30 ml PO Q6H PRN PRN Reason: INDIGESTION Albuterol/Ipratropium (Duoneb (Albuterol 2.5 Mg/Ipratropium 0.5 Mg)) 1 neb INH Q4H PRN PRN Reason: SOB/WHEEZING Last Admin: 08/10/18 19:05 Dose: 1 neb Folic Acid (Folvite Tab*) 1 mg PO DAILY [facility] Last Admin: 08/11/18 09:28 Dose: 1 mg Ceftriaxone Sodium 1 gm/ (Sodium Chloride) 50 mls @ 200 mls/hr IVPB Q24H [facility] Last Admin: 08/10/18 18:48 Dose: 200 mls/hr Lorazepam (Ativan Tab(*)) 0.5 mg PO Q12H PRN PRN Reason: ANXIETY Magnesium Oxide (Magox 400 Tab*) 800 mg PO DAILY [facility] Last Admin: 08/11/18 09:28 Dose: 800 mg Mometasone Furoate/Formoterol Fumar (Dulera 200/5 Mdi*) 2 puff INH BID [facility] Last Admin: 08/11/18 08:26 Dose: 2 puff Multivitamins/Minerals (Theragran/Minerals Tab*) 1 tab PO QAM [facility] Last Admin: 08/11/18 09:29 Dose: 1 tab Nicotine Polacrilex (Nicotine Gum*) 2 mg PO Q2H PRN PRN Reason: CRAVINGS Last Admin: 08/11/18 11:39 Dose: 2 mg Ondansetron HCl (Zofran Inj*) 4 mg IV Q4H PRN PRN Reason: NAUSEA/VOMITING Last Admin: 08/10/18 14:45 Dose: 4 mg Pantoprazole Sodium (Protonix Tab*) 40 mg PO DAILY [facility] Last Admin: 08/11/18 09:29 Dose: 40 mg Polyvinyl Alcohol (Polyvinyl Alcohol 1.4% Opth*) 1 drop BOTH EYES Q4H PRN PRN Reason: DRY EYE Last Admin: 08/11/18 11:43 Dose: 1 drp Potassium Chloride (Klor Con Er Tab*) 40 meq PO DAILY [facility] Last Admin: 08/11/18 09:28 Dose: 40 meq Prednisone (Deltasone Tab*) 20 mg PO DAILY [facility] Last Admin: 08/11/18 09:28 Dose: 20 mg Quetiapine Fumarate (Seroquel Tab*) 50 mg PO BEDTIME [facility] Last Admin: 08/10/18 22:58 Dose: 50 mg Thiamine HCl (Vitamin B-1 Tab*) 100 mg PO DAILY [facility] Last Admin: 08/11/18 09:29 Dose: 100 mg Tiotropium Laie (Spiriva Cap.Inh*) 1 cap INH QAM [facility] Last Admin: 08/11/18 08:25 Dose: 1 cap Vital Signs - 8 hr 08/11/18 08/11/18 08/11/18 07:40 08:00 08:26 Temperature 98.2 F Pulse Rate 84 91 Respiratory 18 18 18 Rate Blood Pressure 152/58 (mmHg) O2 Sat by Pulse 100 94 Oximetry 08/11/18 12:56 Temperature 98.1 F Pulse Rate 92 Respiratory 16 Rate Blood Pressure 156/68 (mmHg) O2 Sat by Pulse 96 Oximetry Oxygen Devices in Use Now: None Appearance: 68 yo female A+Ox3 appears much older than stated age; appears anxious Eyes: No Scleral Icterus Ears/Nose/Mouth/Throat: - - poor dentition Respiratory: Symmetrical Chest Expansion and Respiratory Effort, Clear to Auscultation Cardiovascular: NL Sounds; No Murmurs; No JVD, RRR, No Edema Abdominal: NL Sounds; No Tenderness; No Distention - No CVA tenderness Extremities: No Clubbing, Cyanosis, - - right arm is deformed and is hanging; + intact pulse, warm/dry Neurological: Alert and Oriented x 3, NL Sensation Lines/Tubes/Other Access: Clean, Dry and Intact Peripheral IV Nutrition: Taking PO's Result Diagrams: 08/11/18 06:19 08/11/18 06:19 Microbiology and Other Data: Microbiology 08/08/18 07:46 Stool Occult Blood (KYLIE) - Final Stool 08/07/18 23:06 Stool Occult Blood (YKLIE) - Final Stool Assess/Plan/Problems-Billing Assessment: 68 yo female with a PMH of alcohol abuse, seizure disorder, tobacco abuse, chronically elevated lactic acid , HTN, anxiety, depression, nonhealing fracture of the right arm who presents to the ER with 1 day of vomiting with coffee ground emesis and abdominal pain found to have possible colitis on CT, admitted for possible COPD exacerbation, found to have a positive UTI - Patient Problems (1) Abdominal pain Comment: - acute on chronic abdominal pain, possible worse above her baseline. Possible UTI vs gastritis. It appears she has chronic intermittent vomiting and diarrhea likely 2nd to alcohol abuse. No further vomiting during hospitalization. Pt reports possible coffee ground emesis at home 1 day prior to admission and none since. Started on PPI this admission - shoiuld be DC'd home on PPI. 2nd Guiac positive but has historically intermittent positive guiacs. - CT abd/pelvis showing severe wall thickening of the colon, concerning for colitis, small degree of intra-abdominal ascites, cirrhosis - GB ultrasound showing markedly thickened gallbladder wall with sludge. wall thicken and pericholecystic fluid could be secondary to ascites, mild dilitation of CBD - cipro, flagyl started 08/08 - per GI ok to DC abx - think more than likey this is gastritis - stool cx pending - Appreciate GI consult - recommends no scope at this time; continue PPI and avoid NSAIDs/ASA - pt is prescribed naproxen she was told to DC'd this. - Positive ecoli UTI - possible cause of abdominal pain?? No lower abdominal pain has improved on abx - it is hard to determine as she soils her briefs with stool - continue ceftriaxone (2) Alcoholism Comment: - not scoring on WAM per nursing staff - Long-term hx of ETOH abuse; hx of seizures. - continue thiamine, folic acid and mvi - CT [place] protocol - seizure precautions (3) Anxiety Comment: - continue home dose ativan 0.5 mg Q12/hr prn (4) Electrolyte abnormality Comment: - Continue electrlyte replacement (5) COPD exacerbation Comment: - resolved day after admission suspect this was the patients baseline. (6) Alcoholic liver disease Comment: with mild LFT's elevation, and thrombocytopenia. (7) Elevated lactic acid level Comment: - Chronic Type B lactic acidosis due to starvation ketosis and dehydration in combination to pt with liver disease (8) Fracture, humerus Comment: Right arm deformity due to chronic fx. s/p right proximal humerus fracture on 10/29/17, then subsequent right midshaft fx 05/29/18. Pt has been seen by Ortho (Dr. [facility]) who recommended surgery with rods and pinning per patient- pt has historically been refusing rehab and therefore the surgery Today she states she would have the surgery and rehab locally - ortho Dr. Lane will see the patient in consultation to make recommendations (9) Tobacco user Comment: Pt advised to quit smoking and avoid second hand smoke. NRT ordered. (10) Full code status Comment: (11) DVT prophylaxis Comment: SCDs only Status and Disposition: Inpatient. CAP nurse Nai Curiel follows the patient. Case management is following. Pt reports she cannot go home due to the poor conditions of her home.
[2018-08-11] MEDS: LORazepam TAB(*) 0.5 MG PO PRN (15:37)
[2018-08-11] MEDS: cefTRIAXone(*) 1 GM in NS 0.9% 50 ML* 50 ML IVPB SCH (17:12)
[2018-08-11] MEDS: QUEtiapine TAB* 25 MG PO SCH (23:13)
--- NOTE | 2018-08-11 23:54 | CONS ---
ORTHOPEDIC CONSULTATION NOTE: DATE OF CONSULT: 08/11/18 Thank you for this orthopedic consultation. CHIEF COMPLAINT: Right arm pain, right shoulder pain. HISTORY OF PRESENT ILLNESS: Ms. Bland is a 68-year-old female with multiple medical comorbidities. She is known to the orthopedic group for alcohol abuse and multiple falls. Back in 2017, she fractured her proximal humerus and was treated nonoperatively by Dr. Burt. In May, she fell and fractured her right mid shaft humerus. The patient saw Dr. Arias, who did not feel she was a surgical candidate. The patient reports that she falls on an average once a week. She has chronic 6 /10 pain in the right shoulder. Her pain is increased with any movement. Pain is decreased with the mobilization. The patient was brought to the hospital with vomiting, abdominal pain, and diarrhea on 08/08/18. She has been worked up for GI bleed and I am consulted for orthopedic fracture care. PAST MEDICAL HISTORY: 1. COPD. 2. Alcohol abuse. 3. PTSD. 4. Anxiety and depression. 5. Carotid stenosis. 6. Seizure disorder. 7. Hypertension. 8. IBS. PAST SURGICAL HISTORY: 1. Left carotid endarterectomy. 2. Tonsillectomy. 3. Appendectomy. 4. . HOME MEDICATIONS: 1. Albuterol 1 puff q.4 hours p.r.n. 2. Cholecalciferol 2000 units p.o. daily. 3. Vitamin B12 1000 mcg IM monthly. 4. Folic acid 1 mg p.o. daily. 5. Furosemide 20 mg p.o. p.r.n. 6. Lorazepam 0.5 to 1 mg p.o. b.i.d. 7. Dulera 200/5 two puffs b.i.d. 8. Multivitamin 1 tablet p.o. daily. 9. Naproxen 500 mg p.o. b.i.d. 10. Potassium chloride 40 mEq p.o. daily. 11. Seroquel 50 to 100 mg p.o. q.h.s. 12. Ranitidine 150 mg p.o. daily. 13. Thiamine 100 mg p.o. daily. 14. Tiotropium 1 capsule inhale daily. 15. Vitamin B complex 1 capsule daily. ALLERGIES: DOXYCYCLINE, GABAPENTIN, PREDNISONE. FAMILY HISTORY: Maternal, dementia; paternal, hypertension, coronary artery disease, colon cancer. SOCIAL HISTORY: The patient lives alone. She smokes one pack of cigarettes per day, 3 to 5 alcoholic beverages per day, no recreational drugs. Normally independent ambulator, right hand dominant. REVIEW OF SYSTEMS: A 14 systems reviewed with the patient. Positive for multiple falls, weakness, right upper extremity pain and weakness, recent vomiting and abdominal pain. Otherwise, the patient reports review of systems is negative or not relevant. PHYSICAL EXAM: Vitals today shows temperature of 98.2, pulse of 92, blood pressure 154/72. General: The patient is a thin female, in no apparent distress, alert and oriented x3, pleasant mood and appropriate affect. Chest: Unlabored breathing. HEENT: Atraumatic, normocephalic. Pupils are equal and reactive to light. Right upper extremity: The patient's skin is intact. No abrasions or open wounds. She has extreme deformity of the right shoulder and upper arm. Tenderness to palpation in the entirety of the upper arm. Any movement whatsoever at the shoulder causes severe pain. She can move the elbow and wrist without pain. She has full flexion and extension of the wrist. She demonstrates thumbs up, the OK, and crossed finger signs, 2+ palpable radial pulse. She reports full sensation to light touch in all nerve distributions including over the deltoid muscle. DIAGNOSTIC STUDIES/LAB DATA: Labs show white blood cells 3.7, hematocrit 33, platelets 59, INR 1.09 from 08/07/18. Sodium 135, potassium 2.8, chloride 99. Radiographs: Multiple views of the patient's right shoulder and humerus are reviewed on the PACS system. There are no recent films. These show chronic nonunion, malunion of proximal humerus fracture as well as chronic nonunion, malunion of a right humeral shaft fracture. ASSESSMENT AND PLAN: Ms. Bland is a 68-year-old right hand female with multiple medical comorbidities. 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 She has complete deformity and osteopenia of the right upper arm on plain films, but I have no new recent films. Today, new x- rays of the right shoulder and humerus are ordered. The patient is an extremely poor surgical candidate and we discussed this openly today. When we openly discussed alcohol abuse and recurrent falls, I did explain to her that if she has surgery and then goes on to fall repeatedly, this could lead to nonhealing wounds and amputation of this extremity. The patient becomes tearful, but admits that multiple doctors have discussed this with her. The patient currently continues to abuse alcohol and tobacco. I am concerned that the risk of surgery is unacceptable at this point. Multiple surgeons in my group have recommended nonoperative care or transfer to a tertiary care center. If the patient is serious about stopping her alcohol abuse and continuing with surgery, I would recommend transfer to a tertiary care center or an outpatient consultation at a tertiary care center. For now, she should have a sling for comfort. She is neurovascularly intact in that extremity. Our [facility] will follow her nonoperatively in the outpatient clinic. I plan to discuss this case with my colleagues that are upper extremity specialists. I did explain to the patient that unfortunately the surgeons here do not feel comfortable because of the chronic malunion/ nonunion and the risks of surgery associated with her case. I will follow along while the patient is in the hospital. If I can be of any help with transfer of care or referral, please do contact me. The patient's questions were answered and she understood our treatment plan. [id number]/CPS #: [id number] MTDD
[2018-08-12] MEDS: Albuterol/Ipratropium NEB.SOL* Albuterol 2.5 MG/Ipratropium 0.5 MG 3 ML INH PRN (00:13)
[2018-08-12] MEDS: LORazepam TAB(*) 0.5 MG PO PRN ×2 (03:57→21:16)
[2018-08-12] MEDS: Nicotine* 2MG (FRUIT FLAVOR) GUM PO PRN (04:13)
[2018-08-12 06:22] LABS: ABS Eosinophils 0.1 10^3/ul (0-0.6); ABS Lymphocytes 1.1 10^3/ul (1.0-4.8); ABS Monocytes 0.6 10^3/ul (0-0.8); ABS Neutrophils 3.1 10^3/ul (1.5-7.7); Eosinophil % 2.3 %; Hematocrit 32 % (35-47); Hemoglobin 11.4 g/dL (12.0-16.0); Lymphocyte % 21.5 %; Mean Corpuscular HGB Conc 35 g/dL (31-36); Mean Corpuscular Hemoglobin 40 pg (27-31); Mean Corpuscular Volume 113 fL (80-97); Mean Platelet Volume 8.8 fL (7.4-10.4); Platelet Count 60 10^3/uL (150-450); Red Blood Count 2.86 10^6 /uL (3.70-4.87); Red Cell Distribution Width 15 % (10-15); White Blood Count 4.9 10^3/uL (3.5-10.8)
[2018-08-12 06:30] LABS: BUN/Creatinine Ratio 18.2 (8-20); Calcium 8.6 mg/dL (8.6-10.3); EGFR African American 240.5 (>60); EGFR Non-African American 198.8 (>60); Potassium 3.1 mmol/L (3.5-5.0)
[2018-08-12] MEDS: predniSONE TAB* 20 MG PO SCH (08:07)
[2018-08-12] MEDS: Acetaminophen TAB* 325 MG PO PRN ×2 (08:07→21:16)
[2018-08-12] MEDS: Thiamine TAB* 100 MG TAB PO SCH (08:08)
[2018-08-12] MEDS: Folic Acid TAB* 1 MG PO SCH (08:08)
[2018-08-12] MEDS: Pantoprazole TAB * 40 MG TAB PO SCH (08:08)
[2018-08-12] MEDS: Multivitamins/Minerals TAB PO SCH (08:08)
[2018-08-12] MEDS: Potassium Chlor TAB* 20 MEQ TAB.ER PO SCH (08:08)
[2018-08-12] MEDS: Magnesium Oxide TAB* 400 MG PO SCH (08:08)
[2018-08-12] MEDS: Tiotropium CAP.INH* CAP.INH/18 MCG (USE ORDER SET !) INH SCH (08:32)
[2018-08-12] MEDS: Mometasone/Formoter 200/5 MDI INH SCH ×2 (08:35→19:48)
[2018-08-12] MEDS ORDERED: Potassium Chlor TAB* 20 MEQ TAB.ER PO ONE (10:24)
--- NOTE | 2018-08-12 10:33 | PN ---
"Subjective Date of Service: 08/12/18 Interval History: Per nurse, patient requesting my frequent Ativan dosing reporting that she takes more at home. 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 Will continue same dosing. Denies cp, palpitations, sob, n/v/d, urinary symptoms, fever, chills. Objective Active Medications: Acetaminophen (Tylenol Tab*) 650 mg PO Q4H PRN PRN Reason: FEVER/PAIN Last Admin: 08/12/18 08:07 Dose: 650 mg Al Hydrox/Mg Hydrox/Simethicone (Maalox Plus*) 30 ml PO Q6H PRN PRN Reason: INDIGESTION Albuterol/Ipratropium (Duoneb (Albuterol 2.5 Mg/Ipratropium 0.5 Mg)) 1 neb INH Q4H PRN PRN Reason: SOB/WHEEZING Last Admin: 08/12/18 00:13 Dose: 1 neb Folic Acid (Folvite Tab*) 1 mg PO DAILY [facility] Last Admin: 08/12/18 08:08 Dose: 1 mg Ceftriaxone Sodium 1 gm/ (Sodium Chloride) 50 mls @ 200 mls/hr IVPB Q24H [facility] Last Admin: 08/11/18 17:12 Dose: 200 mls/hr Lorazepam (Ativan Tab(*)) 0.5 mg PO Q12H PRN PRN Reason: ANXIETY Last Admin: 08/12/18 03:57 Dose: 0.5 mg Magnesium Oxide (Magox 400 Tab*) 800 mg PO DAILY [facility] Last Admin: 08/12/18 08:08 Dose: 800 mg Mometasone Furoate/Formoterol Fumar (Dulera 200/5 Mdi*) 2 puff INH BID [facility] Last Admin: 08/12/18 08:35 Dose: 2 puff Multivitamins/Minerals (Theragran/Minerals Tab*) 1 tab PO QAM [facility] Last Admin: 08/12/18 08:08 Dose: 1 tab Nicotine Polacrilex (Nicotine Gum*) 2 mg PO Q2H PRN PRN Reason: CRAVINGS Last Admin: 08/12/18 04:13 Dose: 2 mg Ondansetron HCl (Zofran Inj*) 4 mg IV Q4H PRN PRN Reason: NAUSEA/VOMITING Last Admin: 08/10/18 14:45 Dose: 4 mg Pantoprazole Sodium (Protonix Tab*) 40 mg PO DAILY [facility] Last Admin: 08/12/18 08:08 Dose: 40 mg Polyvinyl Alcohol (Polyvinyl Alcohol 1.4% Opth*) 1 drop BOTH EYES Q4H PRN PRN Reason: DRY EYE Last Admin: 08/11/18 17:17 Dose: 1 drp Potassium Chloride (Potassium Chloride Liquid) 40 meq PO DAILY [facility] Potassium Chloride (Potassium Chloride Liquid) 40 meq PO ONCE ONE Stop: 08/12/18 11:01 Prednisone (Deltasone Tab*) 20 mg PO DAILY [facility] Last Admin: 08/12/18 08:07 Dose: 20 mg Quetiapine Fumarate (Seroquel Tab*) 50 mg PO BEDTIME [facility] Last Admin: 08/11/18 23:13 Dose: 25 mg Thiamine HCl (Vitamin B-1 Tab*) 100 mg PO DAILY [facility] Last Admin: 08/12/18 08:08 Dose: 100 mg Tiotropium [place] (Spiriva Cap.Inh*) 1 cap INH QAM [facility] Last Admin: 08/12/18 08:32 Dose: 1 cap Vital Signs - 8 hr 08/12/18 08/12/18 08/12/18 02:55 03:57 07:53 Temperature 97.4 F 97.6 F Pulse Rate 76 86 Respiratory 18 24 16 Rate Blood Pressure 153/67 117/65 (mmHg) O2 Sat by Pulse 99 100 Oximetry 08/12/18 08/12/18 08/12/18 08:00 08:07 08:35 Temperature Pulse Rate 100 Respiratory 20 20 18 Rate Blood Pressure (mmHg) O2 Sat by Pulse 98 Oximetry Oxygen Devices in Use Now: Nasal Cannula Appearance: Comfortable, NAD Eyes: No Scleral Icterus Ears/Nose/Mouth/Throat: Clear Oropharnyx, Mucous Membranes Moist Neck: NL Appearance and Movements; NL JVP Respiratory: Symmetrical Chest Expansion and Respiratory Effort, - - Sporadic expiratory wheeze otherwise clear Cardiovascular: NL Sounds; No Murmurs; No JVD, RRR, No Edema Abdominal: NL Sounds; No Tenderness; No Distention Lymphatic: No Cervical Adenopathy Extremities: No Clubbing, Cyanosis Skin: No Rash or Ulcers Neurological: Alert and Oriented x 3 Nutrition: Taking PO's Result Diagrams: 08/12/18 05:35 08/12/18 05:35 Additional Lab and Data: Laboratory Results - last 24 hr 08/08/18 08/12/18 08/12/18 07:46 05:35 05:35 WBC 4.9 RBC 2.86 L Hgb 11.4 L Hct 32 L MCV 113 H MCH 40 H MCHC 35 RDW 15 Plt Count 60 L MPV 8.8 Neut % (Auto) 63.8 Lymph % (Auto) 21.5 Izard % (Auto) 12.0 Eos % (Auto) 2.3 Baso % (Auto) 0.4 Absolute Neuts (auto) 3.1 Absolute Lymphs (auto) 1.1 Absolute Monos (auto) 0.6 Absolute Eos (auto) 0.1 Absolute Basos (auto) 0.0 Absolute Nucleated RBC 0.0 Nucleated RBC % 0.0 Sodium 130 L Potassium 3.1 L Chloride 96 L Carbon Dioxide 31 Anion Gap 3 BUN 6 Creatinine 0.33 L Est GFR ( Amer) 240.5 Est GFR (Non-Af Amer) 198.8 BUN/Creatinine Ratio 18.2 Glucose 84 Calcium 8.6 Magnesium 1.4 L Total Bilirubin 0.70 Direct Bilirubin 0.20 H Indirect Bilirubin 0.5 AST 21 ALT 16 Alkaline Phosphatase 71 Total Protein 4.9 L Albumin 3.0 L Globulin 1.9 L Albumin/Globulin Ratio 1.6 Stool H. pylori Ag Negative Microbiology and Other Data: Microbiology 08/08/18 07:46 Stool Culture - Final Stool Stool Gross Appearance - Final Shiga Toxin I & II - Final 08/07/18 23:30 Urine Culture - Final Urine Escherichia Coli 08/08/18 07:46 Stool Gross Appearance - Final Stool C. difficile DNA Amplification - Final 027 Presumptive NEGATIVE Toxigenic C.diff NEGATIVE 08/08/18 07:46 Stool Occult Blood (KYLIE) - Final Stool 08/07/18 23:06 Stool Occult Blood (KYLIE) - Final Stool Assess/Plan/Problems-Billing Assessment: 68 yo female with a PMH of alcohol abuse, seizure disorder, tobacco abuse, chronically elevated lactic acid , HTN, anxiety, depression, nonhealing fracture of the right arm who presents to the ER with 1 day of vomiting with coffee ground emesis and abdominal pain found to have possible colitis on CT, admitted for possible COPD exacerbation, found to have a positive UTI This report was requested by: Jada Barrientos | Reference #: [id number] You have not added a JOEY number. Keeping your JOEY number(s) up to date on the My JOEY Numbers page will enable the separation of your prescriptions from others ' in the search results. Others' Prescriptions Patient Name: Tiffany Bland Date: 1950 Address: [address] [place] [address] Sex: Female Rx Written Rx Dispensed Drug Quantity Days Supply Prescriber Name 07/31/2018 08/01/2018 lorazepam 0.5 mg tablet 20 10 Mark Channti R 07/17/2018 07/18/2018 lorazepam 1 mg tablet 20 10 Mark Channti R Patient Name: Tiffany Bland Date: 1950 Address: [address] [place] [address] Sex: Female Rx Written Rx Dispensed Drug Quantity Days Supply Prescriber Name 06/30/2018 07/02/2018 lorazepam 1 mg tablet 20 10 Chito Chanwnti R 06/17/2018 06/18/2018 lorazepam 0.5 mg tablet 20 10 Mark Channti R 06/05/2018 06/06/2018 oxycodone hcl 5 mg tablet 4 1 [place] ([place] ) 06/03/2018 06/04/2018 lorazepam 1 mg tablet 20 10 Mark Channti R 05/22/2018 05/23/2018 lorazepam 1 mg tablet 20 10 Mark Channti R 05/08/2018 05/08/2018 lorazepam 0.5 mg tablet 40 10 Chito Chanwnti R 04/21/2018 04/22/2018 lorazepam 1 mg tablet 20 10 Chito Chanwnti R 04/09/2018 04/09/2018 lorazepam 1 mg tablet 20 10 Chito Chanwnti R 03/26/2018 03/27/2018 lorazepam 0.5 mg tablet 40 10 Chito Chanwnti R 03/11/2018 03/11/2018 lorazepam 0.5 mg tablet 40 10 Chito Chanwnti R 02/19/2018 02/20/2018 lorazepam 1 mg tablet 20 10 Dustin, Chitownti R 02/06/2018 02/10/2018 lorazepam 1 mg tablet 20 10 Chito Chanwnti R 01/13/2018 01/20/2018 lorazepam 1 mg tablet 20 10 Mark Channti R 12/30/2017 12/31/2017 lorazepam 1 mg tablet 20 10 Dustin, Chitownti R 12/09/2017 12/09/2017 lorazepam 1 mg tablet 20 10 Dustin, Chitownti R 12/02/2017 12/03/2017 tramadol hcl 50 mg tablet 20 4 Sia Burt MD 11/19/2017 11/21/2017 lorazepam 1 mg tablet 20 10 Dustin, Chitownti R 11/13/2017 11/14/2017 tramadol hcl 50 mg tablet 30 4 Prashanth Ramirez ([place] -C) 11/08/2017 11/08/2017 tramadol hcl 50 mg tablet 30 3 Sia Burt MD 11/04/2017 11/06/2017 lorazepam 1 mg tablet 20 10 Dustin, Marknti R 10/31/2017 10/31/2017 oxycodone-acetaminophen 5-325 mg tablet 20 5 Sia Burt MD 10/22/2017 10/23/2017 lorazepam 1 mg tablet 20 10 Dustin, Chitownti R 10/03/2017 10/04/2017 lorazepam 1 mg tablet 20 10 Dustin, Chitownti R 09/18/2017 09/20/2017 lorazepam 1 mg tablet 20 10 Gisell Zapata MD 09/05/2017 09/06/2017 lorazepam 1 mg tablet 20 10 Dustin, Chitownti R 08/21/2017 08/22/2017 lorazepam 1 mg tablet 20 10 Dustin, Marknti R - Patient Problems (1) Abdominal pain Comment: - No complaints of abd pain today - Chronic abdominal pain - Started on PPI this admission - CT abd/pelvis showing severe wall thickening of the colon, concerning for colitis, small degree of intra-abdominal ascites, cirrhosis - GB ultrasound showing markedly thickened gallbladder wall with sludge. wall thicken and pericholecystic fluid could be secondary to ascites, mild dilitation of CBD - Initiall on cipro and flagyl, but d/c'd as suspected viral gastritis - Stool culture negative - CDiff negative - Appreciate GI consult - recommends no scope at this time; continue PPI and avoid NSAIDs/ASA - Positive ecoli UTI; Continue Ceftriaxone (2) Alcoholic liver disease Comment: - Thrombocytopenia which is chronic for patient (3) COPD exacerbation Comment: - Order placed to wean supplemental O2 - resolved day after admission suspect this was the patients baseline. (4) Electrolyte abnormality Comment: - Potassium and Magnesium low, therefore, replacement ordered - Continue to monitor - Phos ordered for tomorrow (5) Elevated lactic acid level Comment: - Chronic suspected secondary to starvation ketosis and dehydration in combination to pt with liver disease (6) Alcoholism Comment: - not scoring on WAM per nursing staff - Long-term hx of ETOH abuse; hx of seizures. - continue thiamine, folic acid and mvi - DC WAM protocol - Cont seizure precautions (7) Anxiety Comment: - Continue home dose ativan 0.5 mg Q12/hr prn (8) Fracture, humerus Comment: - Not surgical candidate at this facility, therefore, would need transfer - Right arm deformity due to chronic fx. (9) Tobacco user Comment: - Cont Nicotine Replacement (10) Full code status Comment: (11) DVT prophylaxis Comment: SCDs only Status and Disposition: Inpatient. CAP nurse Nai Curiel follows the patient. Case management is following. PLACIDO? Attending: Levon Horton"
[2018-08-12 10:44] LABS: Albumin/Globulin Ratio 1.6 (1-3); Globulin 1.9 g/dL (2-4); Indirect Bilirubin 0.5 mg/dL (0.3-1.0); Magnesium 1.4 mg/dL (1.9-2.7); Total Bilirubin 0.7 mg/dL (0.2-1.0); Total Protein 4.9 g/dL (6.4-8.9)
[2018-08-12] MEDS: Artificial Tears* 15 ML BTL BOTH EYES PRN ×3 (10:55→21:17)
[2018-08-12] MEDS ORDERED: Potassium Chloride* LIQUID 20 MEQ/15 ML UDC PO ONE (11:00)
[2018-08-12] MEDS ORDERED: Magnesium Sulfate 2 GM IV* 2 GM/50 ML BAG IVPB ONE ×2 (15:09→17:00)
[2018-08-12 16:17] LABS: Stool Helicobacter pylori Ag Negative (Negative)
[2018-08-12] MEDS: Nystatin TOP POWDER* 15 GM BTL TOPICAL SCH ×2 (17:00→21:21)
[2018-08-12] MEDS: cefTRIAXone(*) 1 GM in NS 0.9% 50 ML* 50 ML IVPB SCH (18:25)
[2018-08-12] MEDS: QUEtiapine TAB* 25 MG PO SCH (21:16)
[2018-08-13 06:24] LABS: Albumin 3.1 g/dL (3.2-5.2); Albumin/Globulin Ratio 1.4 (1-3); BUN/Creatinine Ratio 13.5 (8-20); Calcium 8.9 mg/dL (8.6-10.3); EGFR African American 210.8 (>60); EGFR Non-African American 174.2 (>60); Globulin 2.2 g/dL (2-4); Phosphorus 4.1 mg/dL (2.5-5.0); Potassium 3.2 mmol/L (3.5-5.0); Total Bilirubin 0.7 mg/dL (0.2-1.0); Total Protein 5.3 g/dL (6.4-8.9)
[2018-08-13] MEDS: Tiotropium CAP.INH* CAP.INH/18 MCG (USE ORDER SET !) INH SCH (07:47)
[2018-08-13] MEDS: Mometasone/Formoter 200/5 MDI INH SCH ×2 (07:51→21:21)
[2018-08-13] MEDS ORDERED: KCL 20 MEQ/100 ML IVPREMIX* 20 MEQ/100 ML BAG IV ONE (08:41)
[2018-08-13] MEDS: Potassium Chloride* LIQUID 20 MEQ/15 ML UDC PO SCH (08:46)
[2018-08-13] MEDS: predniSONE TAB* 20 MG PO SCH (08:47)
[2018-08-13] MEDS: Thiamine TAB* 100 MG TAB PO SCH (08:48)
[2018-08-13] MEDS: Magnesium Oxide TAB* 400 MG PO SCH (08:48)
[2018-08-13] MEDS: Multivitamins/Minerals TAB PO SCH (08:48)
[2018-08-13] MEDS: Pantoprazole TAB * 40 MG TAB PO SCH (08:48)
[2018-08-13] MEDS: Nicotine* 2MG (FRUIT FLAVOR) GUM PO PRN ×2 (08:48→21:05)
[2018-08-13] MEDS: Folic Acid TAB* 1 MG PO SCH (08:48)
[2018-08-13] MEDS: Acetaminophen TAB* 325 MG PO PRN ×2 (08:48→19:59)
[2018-08-13] MEDS: Nystatin TOP POWDER* 15 GM BTL TOPICAL SCH ×3 (08:56→21:05)
[2018-08-13] MEDS: Artificial Tears* 15 ML BTL BOTH EYES PRN ×2 (08:56→21:05)
[2018-08-13 09:01] LABS: Magnesium 1.8 mg/dL (1.9-2.7)
[2018-08-13] MEDS: cefTRIAXone(*) 1 GM in NS 0.9% 50 ML* 50 ML IVPB SCH (17:26)
[2018-08-13] MEDS ORDERED: Magnesium Sulfate 2 GM IV* 2 GM/50 ML BAG IVPB ONE (18:17)
--- NOTE | 2018-08-13 18:24 | PN ---
Subjective Date of Service: 08/13/18 Interval History: Resting in bed on assessment. Reports she feels "much better" today. Denies abd pain, nausea, vomiting. Denies cp, palpitations, sob, fever, chills, tremors. Objective Active Medications: Acetaminophen (Tylenol Tab*) 650 mg PO Q4H PRN PRN Reason: FEVER/PAIN Last Admin: 08/13/18 08:48 Dose: 650 mg Al Hydrox/Mg Hydrox/Simethicone (Maalox Plus*) 30 ml PO Q6H PRN PRN Reason: INDIGESTION Albuterol/Ipratropium (Duoneb (Albuterol 2.5 Mg/Ipratropium 0.5 Mg)) 1 neb INH Q4H PRN PRN Reason: SOB/WHEEZING Last Admin: 08/12/18 00:13 Dose: 1 neb Folic Acid (Folvite Tab*) 1 mg PO DAILY [facility] Last Admin: 08/13/18 08:48 Dose: 1 mg Ceftriaxone Sodium 1 gm/ (Sodium Chloride) 50 mls @ 200 mls/hr IVPB Q24H [facility] Last Admin: 08/13/18 17:26 Dose: 200 mls/hr Magnesium Sulfate (Magnesium Sulfate 2 Gm Iv*) 2 gm in 50 mls @ 50 mls/hr IVPB ONCE ONE Stop: 08/13/18 19:16 Lorazepam (Ativan Tab(*)) 0.5 mg PO Q12H PRN PRN Reason: ANXIETY Last Admin: 08/12/18 21:16 Dose: 0.5 mg Magnesium Oxide (Magox 400 Tab*) 800 mg PO DAILY [facility] Last Admin: 08/13/18 08:48 Dose: 800 mg Mometasone Furoate/Formoterol Fumar (Dulera 200/5 Mdi*) 2 puff INH BID [facility] Last Admin: 08/13/18 07:51 Dose: 2 puff Multivitamins/Minerals (Theragran/Minerals Tab*) 1 tab PO QAM [facility] Last Admin: 08/13/18 08:48 Dose: 1 tab Nicotine Polacrilex (Nicotine Gum*) 2 mg PO Q2H PRN PRN Reason: CRAVINGS Last Admin: 08/13/18 08:48 Dose: 2 mg Nystatin (Nystatin Top Powder*) 1 applic TOPICAL TID [facility] Last Admin: 08/13/18 15:25 Dose: 1 applic Ondansetron HCl (Zofran Inj*) 4 mg IV Q4H PRN PRN Reason: NAUSEA/VOMITING Last Admin: 08/10/18 14:45 Dose: 4 mg Pantoprazole Sodium (Protonix Tab*) 40 mg PO DAILY [facility] Last Admin: 08/13/18 08:48 Dose: 40 mg Polyvinyl Alcohol (Polyvinyl Alcohol 1.4% Opth*) 1 drop BOTH EYES Q4H PRN PRN Reason: DRY EYE Last Admin: 08/13/18 08:56 Dose: 1 drp Potassium Chloride (Potassium Chloride Liquid) 40 meq PO DAILY [facility] Last Admin: 08/13/18 08:46 Dose: 40 meq Prednisone (Deltasone Tab*) 20 mg PO DAILY [facility] Last Admin: 08/13/18 08:47 Dose: 20 mg Quetiapine Fumarate (Seroquel Tab*) 50 mg PO BEDTIME [facility] Last Admin: 08/12/18 21:16 Dose: 50 mg Thiamine HCl (Vitamin B-1 Tab*) 100 mg PO DAILY [facility] Last Admin: 08/13/18 08:48 Dose: 100 mg Tiotropium [place] (Spiriva Cap.Inh*) 1 cap INH QAM [facility] Last Admin: 08/13/18 07:47 Dose: 1 cap Vital Signs - 8 hr 08/13/18 08/13/18 11:00 15:00 Temperature 97.9 F 98.6 F Pulse Rate 88 93 Respiratory 18 24 Rate Blood Pressure 156/66 152/72 (mmHg) O2 Sat by Pulse 97 98 Oximetry Oxygen Devices in Use Now: None Appearance: Comfortable, NAD Eyes: No Scleral Icterus, PERRLA Ears/Nose/Mouth/Throat: Clear Oropharnyx, Mucous Membranes Moist Neck: NL Appearance and Movements; NL JVP Respiratory: Symmetrical Chest Expansion and Respiratory Effort, Clear to Auscultation Cardiovascular: NL Sounds; No Murmurs; No JVD, RRR, No Edema Abdominal: NL Sounds; No Tenderness; No Distention Lymphatic: No Cervical Adenopathy Extremities: No Clubbing, Cyanosis Skin: No Rash or Ulcers Neurological: Alert and Oriented x 3, NL Muscle Strength and Tone Nutrition: Taking PO's Result Diagrams: 08/12/18 05:35 08/13/18 05:18 Additional Lab and Data: Laboratory Results - last 24 hr 08/13/18 05:18 Sodium 129 L Potassium 3.2 L Chloride 96 L Carbon Dioxide 27 Anion Gap 6 BUN 5 L Creatinine 0.37 L Est GFR ( Amer) 210.8 Est GFR (Non-Af Amer) 174.2 BUN/Creatinine Ratio 13.5 Glucose 102 H Calcium 8.9 Phosphorus 4.1 Magnesium 1.8 L Total Bilirubin 0.70 AST 21 ALT 16 Alkaline Phosphatase 74 Total Protein 5.3 L Albumin 3.1 L Globulin 2.2 Albumin/Globulin Ratio 1.4 Microbiology and Other Data: Microbiology 08/08/18 07:46 Stool Stool Culture - Final 08/08/18 07:46 Stool Stool Gross Appearance - Final 08/08/18 07:46 Stool Shiga Toxin I & II - Final 08/07/18 23:30 Urine Urine Culture - Final Escherichia Coli 08/08/18 07:46 Stool Stool Gross Appearance - Final 08/08/18 07:46 Stool C. difficile DNA Amplification - Final 027 Presumptive NEGATIVE Toxigenic C.diff NEGATIVE 08/08/18 07:46 Stool Stool Occult Blood (KYLIE) - Final 08/07/18 23:06 Stool Stool Occult Blood (KYLIE) - Final Assess/Plan/Problems-Billing Assessment: 68 yo female with a PMH of alcohol abuse, seizure disorder, tobacco abuse, chronically elevated lactic acid , HTN, anxiety, depression, nonhealing fracture of the right arm who presents to the ER with 1 day of vomiting with coffee ground emesis and abdominal pain found to have possible colitis on CT, admitted for possible COPD exacerbation, found to have a positive UTI This report was requested by: Jada Barrientos | Reference #: [id number] You have not added a JOEY number. Keeping your JOEY number(s) up to date on the My JOEY Numbers page will enable the separation of your prescriptions from others ' in the search results. Others' Prescriptions Patient Name: Tiffany Bland Date: 1950 Address: [address] [place] [address] Sex: Female Rx Written Rx Dispensed Drug Quantity Days Supply Prescriber Name 07/31/2018 08/01/2018 lorazepam 0.5 mg tablet 20 10 Dorcas Chan 07/17/2018 07/18/2018 lorazepam 1 mg tablet 20 10 Dorcas Chan Patient Name: Tiffany Gell Date: 1950 Address: [facility] [address] [place] [id number] Sex: Female Rx Written Rx Dispensed Drug Quantity Days Supply Prescriber Name 06/30/2018 07/02/2018 lorazepam 1 mg tablet 20 10 Mark Channti R 06/17/2018 06/18/2018 lorazepam 0.5 mg tablet 20 10 Dustin, Chitownti R 06/05/2018 06/06/2018 oxycodone hcl 5 mg tablet 4 1 [place] (LYNDSAY ) 06/03/2018 06/04/2018 lorazepam 1 mg tablet 20 10 Mark Channti R 05/22/2018 05/23/2018 lorazepam 1 mg tablet 20 10 Mark Channti R 05/08/2018 05/08/2018 lorazepam 0.5 mg tablet 40 10 Dustin, [place] R 04/21/2018 04/22/2018 lorazepam 1 mg tablet 20 10 Dustin, [place] R 04/09/2018 04/09/2018 lorazepam 1 mg tablet 20 10 Dustin, [place] R 03/26/2018 03/27/2018 lorazepam 0.5 mg tablet 40 10 Dustin, [place] R 03/11/2018 03/11/2018 lorazepam 0.5 mg tablet 40 10 Chito Chanwnti R 02/19/2018 02/20/2018 lorazepam 1 mg tablet 20 10 Dustin, [place] R 02/06/2018 02/10/2018 lorazepam 1 mg tablet 20 10 Chito Chanwnti R 01/13/2018 01/20/2018 lorazepam 1 mg tablet 20 10 Dustin, [place] R 12/30/2017 12/31/2017 lorazepam 1 mg tablet 20 10 Chito Chanwnti R 12/09/2017 12/09/2017 lorazepam 1 mg tablet 20 10 Chito Chanwnti R 12/02/2017 12/03/2017 tramadol hcl 50 mg tablet 20 4 Sia Burt, MD 11/19/2017 11/21/2017 lorazepam 1 mg tablet 20 10 Dustin, Chitownti R 11/13/2017 11/14/2017 tramadol hcl 50 mg tablet 30 4 Prashanth Ramirez (LYNDSAY -[place]) 11/08/2017 11/08/2017 tramadol hcl 50 mg tablet 30 3 Sia Burt MD 11/04/2017 11/06/2017 lorazepam 1 mg tablet 20 10 Dorcas Chan R 10/31/2017 10/31/2017 oxycodone-acetaminophen 5-325 mg tablet 20 5 Sia Burt MD 10/22/2017 10/23/2017 lorazepam 1 mg tablet 20 10 Dorcas Chan R 10/03/2017 10/04/2017 lorazepam 1 mg tablet 20 10 Matilda Chani R 09/18/2017 09/20/2017 lorazepam 1 mg tablet 20 10 Gisell Zapata MD 09/05/2017 09/06/2017 lorazepam 1 mg tablet 20 10 Dorcas Chan R 08/21/2017 08/22/2017 lorazepam 1 mg tablet 20 10 Dorcas Chan R - Patient Problems (1) Hyponatremia Comment: - 129 today - Fluid restriction of 2000 ml water daily - Repeat BMP tomorrow (2) Abdominal pain Comment: - No complaints of abd pain today - Chronic abdominal pain - Started on PPI this admission - CT abd/pelvis showing severe wall thickening of the colon, concerning for colitis, small degree of intra-abdominal ascites, cirrhosis - GB ultrasound showing markedly thickened gallbladder wall with sludge. wall thicken and pericholecystic fluid could be secondary to ascites, mild dilitation of CBD - Initiall on cipro and flagyl, but d/c'd as suspected viral gastritis - Stool culture negative - CDiff negative - Appreciate GI consult - recommends no scope at this time; continue PPI and avoid NSAIDs/ASA - Positive ecoli UTI; Continue Ceftriaxone (3) Alcoholic liver disease Comment: - Thrombocytopenia which is chronic for patient (4) COPD exacerbation Comment: - On room air - Resolved - Currently asymptomatic (5) Electrolyte abnormality Comment: - Potassium and Magnesium low, therefore, replacement ordered - Continue to monitor - Phos wnl (6) Elevated lactic acid level Comment: - Chronic suspected secondary to starvation ketosis and dehydration in combination to pt with liver disease (7) Alcoholism Comment: - not scoring on WAM per nursing staff - Long-term hx of ETOH abuse; hx of seizures. - continue thiamine, folic acid and mvi - DC WAM protocol - Cont seizure precautions (8) Anxiety Comment: - Continue home dose ativan 0.5 mg Q12/hr prn (9) Fracture, humerus Comment: - Not surgical candidate at this facility, therefore, would need transfer or outpatient surgery at later date - Right arm deformity due to chronic fx. (10) Tobacco user Comment: - Cont Nicotine Replacement (11) Full code status Comment: (12) DVT prophylaxis Comment: SCDs only Status and Disposition: Inpatient. CAP nurse Nai Curiel follows the patient. Case management is following. PLACIDO? Attending: Levon Horton
[2018-08-13] MEDS: LORazepam TAB(*) 0.5 MG PO PRN (21:04)
[2018-08-13] MEDS: QUEtiapine TAB* 25 MG PO SCH (21:05)
[2018-08-14 06:43] LABS: BUN/Creatinine Ratio 13.3 (8-20); Calcium 8.8 mg/dL (8.6-10.3); EGFR African American 168.2 (>60); Magnesium 1.8 mg/dL (1.9-2.7); Potassium 3.6 mmol/L (3.5-5.0)
[2018-08-14] MEDS: Potassium Chloride* LIQUID 20 MEQ/15 ML UDC PO SCH (07:42)
[2018-08-14] MEDS: Magnesium Oxide TAB* 400 MG PO SCH (07:42)
[2018-08-14] MEDS: Multivitamins/Minerals TAB PO SCH (07:43)
[2018-08-14] MEDS: predniSONE TAB* 20 MG PO SCH (07:43)
[2018-08-14] MEDS: Pantoprazole TAB * 40 MG TAB PO SCH (07:43)
[2018-08-14] MEDS: Folic Acid TAB* 1 MG PO SCH (07:43)
[2018-08-14] MEDS: Thiamine TAB* 100 MG TAB PO SCH (07:43)
[2018-08-14] MEDS: Nystatin TOP POWDER* 15 GM BTL TOPICAL SCH (07:44)
[2018-08-14] MEDS ORDERED: Magnesium Sulfate 2 GM IV* 2 GM/50 ML BAG IVPB ONE (08:16)
[2018-08-14] MEDS ORDERED: Potassium Chlor TAB* 10 MEQ TAB.ER PO ONE (08:17)
[2018-08-14] MEDS: Tiotropium CAP.INH* CAP.INH/18 MCG (USE ORDER SET !) INH SCH (09:00)
[2018-08-14] MEDS: Mometasone/Formoter 200/5 MDI INH SCH (09:02)
[2018-08-14] MEDS: Acetaminophen TAB* 325 MG PO PRN (10:48)
[2018-08-14] MEDS: Artificial Tears* 15 ML BTL BOTH EYES PRN (10:48)
[2018-08-14] MEDS: Nicotine* 2MG (FRUIT FLAVOR) GUM PO PRN (10:48)
[2018-08-14] MEDS: LORazepam TAB(*) 0.5 MG PO PRN (12:21)
--- NOTE | 2018-08-14 15:50 | DS ---
CC: Dorcas Chan NP * DISCHARGE SUMMARY: DATE OF ADMISSION: 08/08/18 DATE OF DISCHARGE: 08/14/18. PRIMARY CARE PROVIDER: Dorcas Chan NP. ATTENDING PROVIDER: Dr. Horton * (DICTATED BY TEA SOLIS NP) PRIMARY DIAGNOSES: 1. Hyponatremia. 2. Abdominal pain. 3. Alcoholic liver disease. 4. Chronic obstructive pulmonary disease. 5. Electrolyte abnormalities. 6. Elevated lactic acid. 7. Alcoholism. 8. Anxiety. 9. Humerus fracture. 10. Tobacco user. 11. Carotid stenosis. 12. Seizure disorder. 13. Hypertension. 14. Irritable bowel syndrome. CONSULTATIONS WHILE IN THE HOSPITAL: Dr. Laura Lane from Orthopedics and Dr. Marcial Kaminski from Gastroenterology. STUDIES WHILE IN THE HOSPITAL: EKG: Impression: Sinus tachycardia. Abdominal/pelvis CT: Impression: Severe wall thickening of the colon, concern for colitis. Gallbladder mucosal enhancement and marked pericholecystic fluid. Acute cholecystitis cannot be excluded. Correlate clinically with laboratory findings and physical examination. Small degree of intraabdominal ascites. Nodular contour to liver which may indicate underlying sclerosis. Chest x-ray: Impression: Findings consistent with COPD. No evidence of acute disease. Gallbladder ultrasound: Impression: Markedly thickened gallbladder with sludge. Wall thickening and pericholecystic fluid, can also be secondary to ascites. Mild dilatation of CBD. Humerus x-ray: Impression: Persistent fractures of right humerus. Shoulder x-ray: Impression: Persistent fracture of the right humerus. DISCHARGE HOME MEDICATIONS: Continued home medications: 1. Albuterol MDI 1 puff q.4 hours p.r.n. shortness of breath and wheezing. 2. Cholecalciferol 2000 units p.o. daily. 3. Vitamin B12 1000 mcg IM monthly. 4. Folic acid 1 mg p.o. daily. 5. Furosemide 20 mg p.o. p.r.n. edema. 6. Ativan 0.5 to 1 mg p.o. b.i.d. p.r.n. anxiety. 7. Mag oxide 400 mg p.o. daily. 8. Dulera 200/5 2 puffs b.i.d. 9. Multivitamin 1 tablet p.o. daily. 10. Nicotine gum 2 mg p.o. q.6 hours p.r.n. craving. 11. Zofran 4 mg p.o. t.i.d. p.r.n. nausea and vomiting. 12. Potassium chloride 40 mEq p.o. daily. 13. Seroquel 50 to 100 mg p.o. at bedtime. 14. Ranitidine 150 mg p.o. daily p.r.n. indigestion. 15. Thiamine 100 mg p.o. daily. 16. Tiotropium 1 capsule inhalation daily. 17. Vitamin B complex 1 cap daily. DISCONTINUED HOME MEDICATIONS: 1. Naproxen 500 mg p.o. q.12 hours p.r.n. 2. Ibuprofen. 3. Aspirin. NEW HOME MEDICATION: Protonix 40 mg p.o. daily. HISTORY OF PRESENT ILLNESS/HOSPITAL COURSE: Ms. Bland is a 68-year-old female with a past medical history significant for COPD, alcohol abuse, seizure disorder, hypertension, anxiety, depression, who presented to the emergency department on 08/08/18 with complaints of abdominal pain and vomiting x1 day. Please see history and physical dictated by Grisel Puckett NP for a complete summary of events leading up to this hospitalization, but in short, patient reported coffee ground emesis, poor appetite, and generally feeling weak. While in the emergency department she had an unremarkable H and H, hyponatremia consistent with her baseline, lactic acidosis consistent with baseline and hypomagnesemia. She was requiring 2 L of nasal cannula oxygen to maintain saturations which was new for her. Images were completed and were unremarkable with the exception of concern for possible colitis. The patient was admitted to the medical floor. While on the medical floor, patient was evaluated by GI, who recommended no scope, start PPI, and avoid NSAID/aspirin. The patient has been free from any vomiting, abdominal pain or nausea during this entire admission. As for oxygen requirements, patient was treated with supplemental oxygen and p.o. steroids. The patient has improved. We suspect this was secondary to COPD exacerbation. The patient is currently on room air. The patient does not need to continue prednisone as she has completed five days. The patient's hospitalization was further complicated as she had some electrolyte abnormalities including hyponatremia, hypomagnesemia, hypokalemia. The patient's electrolytes were repleted and are currently within range, with the exception of her sodium which is 131, which is baseline for this patient. I have placed her on a 2000 mL water restriction diet. The patient also was noted to possibly have urinary tract infection as her urine that was collected in the emergency department did grow E. coli. The patient completed a course of ceftriaxone. The patient is currently symptom free. Finally, as noted above, patient has a history of alcoholism. She was on a WAM protocol while admitted. In addition he does have thrombocytopenia which is chronic for her and we suspect is secondary to her alcoholic liver disease. In addition, she had a slightly elevated lactic acid and once again, we suspect this is secondary to starvation ketoacidosis and hydration in combination with patient's liver disease. Both of these levels, platelets and lactic acid are at patient's baseline. Finally before the patient was discharged, she was evaluated by Orthopedics for her humerus fracture. It was decided that the patient was not a candidate for surgery at this facility. Therefore, she would need to be transferred or have this completed on an outpatient basis, since there was a chronic fracture. The decision was made with patient, social staff worker and cap worker that she would be discharged to a subacute rehab facility and pursue surgery at a later time. The patient is stable for discharge to [facility]. Vitals Signs: Temperature 97.7, heart rate 76, respiratory rate 20, O2 saturation 98% on room air, BP 148/58. REVIEW OF SYSTEMS: The patient denies abdominal pain, nausea, vomiting. The patient denies urinary symptoms. The patient denies chest pain or palpitations. A 14-point review of systems was completed and all were negative. The patient reports today she feels "the best I ever have." PHYSICAL EXAMINATION: General: Ms. Bland is a 68-year-old female who was sitting in bed. Appears to be in no acute distress. Appears stated age. HEENT: EOMs intact. PERRLA. Oral mucosa is moist without lesion. Posterior pharynx is clear. Neck: Supple. No lymphadenopathy. Respiratory: Lungs are clear to auscultation. No wheezes, rhonchi or rubs. Good aeration. Cardiac: S1, S2 present. Regular rate and rhythm. No murmurs, rubs or gallops. Abdomen: Soft, nontender. Bowel sounds are normoactive. Extremities: No edema. No clubbing or cyanosis. Pedal pulses 2+ bilaterally. Musculoskeletal: No pain or deformities. Skin: Grossly intact. Neuro: Neuro exam is grossly intact. No focal deficits or weakness. LABORATORY DATA: WBC 4.9, hemoglobin 11.4, hematocrit 32, MCV 113, MCH 40, platelets 60,000. Sodium 131, potassium 3.6, chloride 99, carbon dioxide 46, BUN 6, creatinine 0.45. Glucose 92. Magnesium 1.8 (this was repleted today and should be rechecked in a week). DISCHARGE PLAN/FOLLOWUP: 1. Abdominal pain: As mentioned above, patient presented with the complaint of abdominal pain and nausea, vomiting. The patient was evaluated by GI. The patient should continue her PPI and avoid NSAIDs and aspirin products. If patient has repeat episodes, she should be followed up by GI. It should be mentioned patient's stool culture was negative, C. difficile negative and stool guaiac negative. 2. Hyponatremia: As mentioned above, patient's sodium is currently 131. This is her baseline. She has been on fluid restriction x48 hours of 2000 mL of water. I would recommend repeating this BMP in one week. 3. Alcoholic liver disease: As mentioned above, patient has a significant alcoholic history and has thrombocytopenia which we suspect is secondary to alcoholic liver disease. The patient's thrombocytopenia is chronic. I would recommend a repeat CBC in one week. 4. Chronic obstructive pulmonary disease exacerbation: When patient presented to the emergency room, she was requiring 2 L nasal cannula to maintain oxygenation. The patient was treated with steroids, supplemental oxygen and nebulizers and has improved. The patient is currently on room air. The patient to continue her home inhalers the same. She is currently asymptomatic. 5. Electrolyte abnormalities: The patient had low potassium and magnesium while admitted. Both were replaced as needed. The patient currently has a normal potassium. The patient's magnesium this morning was 1.8 but she did receive 2 g. I would recommend a repeat BMP and magnesium in one week. 6. Elevated lactic acid: On admission, patient was noted to have an elevated lactic acid at 2.3. This is patient's baseline since 2017. The patient had no signs or symptoms of sepsis. We suspect this is secondary to starvation ketosis , dehydration in combination with liver disease. 7. Alcoholism: The patient has a long-term history of alcohol abuse and seizures. The patient was placed on a WAM while hospitalized but did not score. The patient should continue her thiamine, folic acid and multivitamin. 8. Anxiety and depression: The patient is on Ativan 0.5 mg anxiety. The patient has a history of anxiety and has been on Ativan 0.5 mg p.o. b.i.d. p.r.n. The patient should continue the same medication as an outpatient. I would also recommend discussing more routine medications for anxiety and depression. 9. Humerus fracture: The patient has a right humerus fracture that is chronic. Right arm is deformed. The patient will receive PT and OT at [facility]. The patient was not a candidate for surgery at this facility and a decision was made that she would follow up as an outpatient from rehab if she decides she would like to undergo surgery at that point. 10. Tobacco use: The patient is a current smoker. I would recommend nicotine replacement in the form of gum which she has been taking at home. 11. Edema. The patient is on Lasix prn for edema. The patient has no signs or symptoms of edema at this time. I would recommend continuing this as a p.r.n. only given patient's electrolyte imbalance. 12. Irritable bowel syndrome. The patient should continue her PPI and avoid NSAIDs and aspirin containing products. 13. Followup: The patient is to follow up with her primary care in 1 to 3 days. She can be evaluated by the primary care at [facility]. 14. Education: The patient was educated on signs and symptoms of new or worsening condition and when to return to the emergency department. The patient stated understanding. This is a summarized report of a complex medical history and hospital stay. For further details, please see the entire medical record. TIME SPENT: Approximately 45 minutes were spent on this discharge, greater than half that time was spent [id number] with the patient discussing discharge plans and instructions. This plan was discussed with my attending, Dr. Horton, who is in agreement with my plan of care. Reviewed by TEA SOLIS NP 08/23/18 @ 1735 [id number]/[facility] #: [id number] [place]
[2018-08-14 16:42] VITALS: BP 96/66
== END 2018-08-14 16:50 | DRG 394 ==
LOC: ED 15:11 → MEDTELE 08-08 02:52 → MED 08-12 00:02
PROVIDERS: ADMIT Internal Medicine; ATTEND Internal Medicine
DX: K52.1 Toxic gastroenteritis and colitis (principal); E87.1 Hypo-osmolality and hyponatremia; J44.1 Chronic obstructive pulmonary disease with (acute) exacerbation; N39.0 Urinary tract infection, site not specified; E87.2 Acidosis; E88.89 Other specified metabolic disorders; D69.59 Other secondary thrombocytopenia; E83.42 Hypomagnesemia; I65.29 Occlusion and stenosis of unspecified carotid artery; K70.31 Alcoholic cirrhosis of liver with ascites; K70.11 Alcoholic hepatitis with ascites; G89.29 Other chronic pain; G40.909 Epilepsy, unspecified, not intractable, without status epilepticus; I10 Essential (primary) hypertension; F32.9 Major depressive disorder, single episode, unspecified; F10.20 Alcohol dependence, uncomplicated; R09.02 Hypoxemia; M84.421G Pathological fracture, right humerus, subsequent encounter for fracture with delayed healing; E86.0 Dehydration; Y90.5 Blood alcohol level of 100-119 mg/100 ml; M85.821 Other specified disorders of bone density and structure, right upper arm; F41.9 Anxiety disorder, unspecified; F17.210 Nicotine dependence, cigarettes, uncomplicated; E87.6 Hypokalemia; R11.10 Vomiting, unspecified; B96.20 Unspecified Escherichia coli [E. coli] as the cause of diseases classified elsewhere; T73.0XXA Starvation, initial encounter; X58.XXXA Exposure to other specified factors, initial encounter; Z79.51 Long term (current) use of inhaled steroids; Z79.899 Other long term (current) drug therapy; Z88.8 Allergy status to other drugs, medicaments and biological substances; Z82.49 Family history of ischemic heart disease and other diseases of the circulatory system; Z80.0 Family history of malignant neoplasm of digestive organs
CPT/HCPCS: 36415; 36600; 71046; 74177; 76705; 80048; 80053; 80076; 80320; 81003; 81015; 82272; 82607; 82803; 83605; 83690; 83735; 84100; 84484; 85025; 85610; 85730; 86140; 87045; 87046; 87070; 87077; 87086; 87186; 87205; 87338; 87493; 93005; 94640; 97530; 99284; 99406; A9270-GY; G0480; G8978-GP-CI; G8979-GP-CI; G8980-GP-CI; G8987-GO-CJ; G8988-GO-CI; J0696; J0744; J2060; J2405; J2765; J2930; J3475; J3480; J3490; J7512; Q9967

== ENCOUNTER 2019-06-19 14:38 | Inpatient (IN) | payer MEDICARE, OTHER ==
[2019-06-19] MEDS ORDERED: NS 0.9% 1000 ml BAG 1,000 ML IV ONE ×4 (14:52→23:25)
[2019-06-19 15:44] LABS: ABS Basophils 0.1 10^3/ul (0-0.2); ABS Eosinophils 0.3 10^3/ul (0-0.6); ABS Lymphocytes 0.8 10^3/ul (1.0-4.8); ABS Monocytes 0.4 10^3/ul (0-0.8); Eosinophil % 4.4 %; Hematocrit 37 % (35-47); Hemoglobin 13.2 g/dL (12.0-16.0); Lymphocyte % 14.1 %; Mean Corpuscular HGB Conc 36 g/dL (31-36); Mean Corpuscular Hemoglobin 41 pg (27-31); Mean Corpuscular Volume 115 fL (80-97); Nucleated Red Blood Cells % 0.1; Platelet Count 122 10^3/uL (150-450); Red Blood Count 3.23 10^6 /uL (3.70-4.87); Red Cell Distribution Width 18 % (10-15)
[2019-06-19] MEDS ORDERED: Clindamycin 300 MG IVPREMIX* 300 MG/50 ML SDV IVPB ONE (16:07)
[2019-06-19 16:37] LABS: ALT 20 U/L (7-52); Albumin/Globulin Ratio 1.2 (1-3); Alkaline Phosphatase 53 U/L (34-104); Anion Gap 5 mmol/L (2-11); Blood Urea Nitrogen 10 mg/dL (6-24); C Reactive Protein 4.45 mg/L (<8.01); CO2 Carbon Dioxide 29 mmol/L (22-32); Calcium 8.7 mg/dL (8.6-10.3); Chloride 86 mmol/L (101-111); Globulin 3.3 g/dL (2-4); Glucose 74 mg/dL (70-100); Sodium 120 mmol/L (135-145); Total Protein 7.3 g/dL (6.4-8.9)
[2019-06-19] MEDS ORDERED: methylPREDNISolone 125 mg 2 ML VIAL IV ONE (17:12)
[2019-06-19 17:18] LABS: BUN/Creatinine Ratio 18.2 (8-20); EGFR Non-African American 109.9 (>60)
[2019-06-19] MEDS ORDERED: LORazepam 1 mg TAB (*) PO PRN (17:22)
[2019-06-19] MEDS ORDERED: Polyethylene Glycol 3350 17 GM PACKET PO PRN (17:22)
[2019-06-19] MEDS ORDERED: Al Hydrox/Mg Hydrox/Simet LIQ 30 ML UDC PO PRN (17:33)
[2019-06-19 17:37] LABS: Alcohol, S 19 mg/dL (<10); TSH (Thyroid Stimulating Horm) 6.24 mcIU/mL (0.34-5.60)
[2019-06-19] MEDS ORDERED: NS 0.9% 1000 ml BAG 1,000 ML IV SCH (17:45)
[2019-06-19] MEDS ORDERED: methylPREDNISolone SOD 40 mg/ml 1 ml VIAL IV SCH (18:00)
[2019-06-19] MEDS ORDERED: Albuterol/Ipratropium NEB.SOL (2.5/0.5 MG) 3 ML NEB.SOLN INH PRN (18:00)
[2019-06-19] MEDS ORDERED: LORazepam 1 mg TAB (*) PO SCH (19:00)
[2019-06-19] MEDS: Enoxaparin 30 MG/0.3 ML SYR(*) SUBCUT SCH (20:17)
[2019-06-19] MEDS: Potassium Chlor 20 meq TAB.ER PO SCH (20:28)
[2019-06-19] MEDS: Mometasone/Formoter 200/5 MDI INH SCH (21:19)
[2019-06-19] MEDS: LORazepam 0.5 mg TAB (*) PO PRN (22:54)
[2019-06-19 23:02] LABS: EGFR African American 148.5 (>60); EGFR Non-African American 122.7 (>60); Magnesium 1.1 mg/dL (1.9-2.7); Potassium 3.1 mmol/L (3.5-5.0)
[2019-06-19] MEDS ORDERED: Magnesium Sulfate IV 3 GM in NS 0.9% 100 ml BAG 100 ML IVPB ONE (23:28)
[2019-06-19] MEDS ORDERED: Potassium Chlor 20 meq TAB.ER PO ONE (23:29)
[2019-06-20] MEDS: methylPREDNISolone SOD 40 mg/ml 1 ml VIAL IV SCH ×3 (01:38→17:03)
[2019-06-20 06:53] LABS: ABS Lymphocytes 0.3 10^3/ul (1.0-4.8); Eosinophil % 0.1 %; Hematocrit 34 % (35-47); Lymphocyte % 10.5 %; Mean Corpuscular HGB Conc 35 g/dL (31-36); Mean Corpuscular Hemoglobin 41 pg (27-31); Mean Corpuscular Volume 117 fL (80-97); Mean Platelet Volume 8.5 fL (7.4-10.4); Nucleated Red Blood Cells % 0.3; Platelet Count 108 10^3/uL (150-450); Red Blood Count 2.95 10^6 /uL (3.70-4.87); Red Cell Distribution Width 18 % (10-15); White Blood Count 2.6 10^3/uL (3.5-10.8)
[2019-06-20 07:01] LABS: BUN/Creatinine Ratio 15.3 (8-20); Calcium 8.4 mg/dL (8.6-10.3); EGFR African American 122.6 (>60); EGFR Non-African American 101.4 (>60); Potassium 3.4 mmol/L (3.5-5.0)
[2019-06-20] MEDS: SPIRIVA Respimat (tiotropium) 2.5 mcg/inh Inhaler INH SCH (07:25)
[2019-06-20] MEDS: Mometasone/Formoter 200/5 MDI INH SCH ×2 (07:25→20:38)
[2019-06-20] MEDS: Multivitamins/Minerals TAB PO SCH (08:36)
[2019-06-20] MEDS: Potassium Chlor 20 meq TAB.ER PO SCH ×2 (08:37→22:09)
[2019-06-20] MEDS: LORazepam 0.5 mg TAB (*) PO PRN ×2 (12:35→17:02)
[2019-06-20] MEDS: Nicotine GUM 2MG FRUIT FLAVOR PO PRN (17:00)
[2019-06-20] MEDS: Enoxaparin 30 MG/0.3 ML SYR(*) SUBCUT SCH (21:57)
[2019-06-21] MEDS: LORazepam 0.5 mg TAB (*) PO PRN ×4 (02:45→22:12)
[2019-06-21 05:23] LABS: BUN/Creatinine Ratio 22.4 (8-20); Calcium 8.6 mg/dL (8.6-10.3); EGFR African American 125.1 (>60); EGFR Non-African American 103.4 (>60); Magnesium 1.6 mg/dL (1.9-2.7)
[2019-06-21] MEDS: SPIRIVA Respimat (tiotropium) 2.5 mcg/inh Inhaler INH SCH (07:28)
[2019-06-21] MEDS: Mometasone/Formoter 200/5 MDI INH SCH ×2 (07:29→19:14)
[2019-06-21] MEDS: Albuterol HFA INHALER 8 gm MDI INH PRN (07:29)
[2019-06-21] MEDS: Multivitamins/Minerals TAB PO SCH (09:19)
[2019-06-21] MEDS: Potassium Chlor 20 meq TAB.ER PO SCH ×2 (09:22→22:12)
[2019-06-21] MEDS ORDERED: Magnesium Sulfate CRYSTAL 454 GM BOX TOPICAL ONE (10:45)
[2019-06-21] MEDS ORDERED: Magnesium Sulfate 2 gm BAG 2 GM/50 ML BAG IVPB ONE (11:06)
[2019-06-21] MEDS: Nicotine GUM 2MG FRUIT FLAVOR PO PRN ×3 (11:57→22:13)
[2019-06-21] MEDS: Enoxaparin 30 MG/0.3 ML SYR(*) SUBCUT SCH (22:13)
[2019-06-22] MEDS: Nicotine GUM 2MG FRUIT FLAVOR PO PRN ×4 (04:30→22:54)
[2019-06-22] MEDS: Mometasone/Formoter 200/5 MDI INH SCH ×2 (07:15→19:26)
[2019-06-22] MEDS: SPIRIVA Respimat (tiotropium) 2.5 mcg/inh Inhaler INH SCH (07:16)
[2019-06-22 08:46] LABS: Hematocrit 31 % (35-47); Hemoglobin 10.7 g/dL (12.0-16.0); Mean Corpuscular HGB Conc 35 g/dL (31-36); Mean Corpuscular Hemoglobin 41 pg (27-31); Mean Corpuscular Volume 118 fL (80-97); Red Cell Distribution Width 18 % (10-15); White Blood Count 5.2 10^3/uL (3.5-10.8)
[2019-06-22] MEDS: Potassium Chlor 20 meq TAB.ER PO SCH ×2 (08:51→22:06)
[2019-06-22] MEDS: Multivitamins/Minerals TAB PO SCH (08:52)
[2019-06-22 08:59] LABS: Anion Gap 4 mmol/L (2-11); BUN/Creatinine Ratio 20.8 (8-20); Blood Urea Nitrogen 11 mg/dL (6-24); CO2 Carbon Dioxide 26 mmol/L (22-32); Calcium 8.7 mg/dL (8.6-10.3); Chloride 98 mmol/L (101-111); EGFR African American 138.8 (>60); EGFR Non-African American 114.7 (>60); Glucose 79 mg/dL (70-100); Magnesium 1.4 mg/dL (1.9-2.7); Potassium 4.7 mmol/L (3.5-5.0); Sodium 128 mmol/L (135-145)
[2019-06-22 09:28] LABS: ABS Eosinophils 0.1 10^3/ul (0-0.6); ABS Lymphocytes 0.9 10^3/ul (1.0-4.8); ABS Monocytes 0.4 10^3/ul (0-0.8); Eosinophil % 2.7 %; Lymphocyte % 16.3 %; Mean Platelet Volume 8.4 fL (7.4-10.4); Platelet Count 92 10^3/uL (150-450)
[2019-06-22] MEDS ORDERED: Magnesium Sulf 4 GM/100 ML IV 4,000 MG/100 ML BAG IVPB ONE (11:31)
[2019-06-22 12:05] LABS: % Iron Saturation 28 % (15-55); Iron 76 ug/dL (50-212); Total Iron Binding Capacity 269 mcg/dL (250-450); Transferrin 192 mg/dL (203-362)
[2019-06-22 12:24] LABS: Ferritin 262.1 ng/mL (11-307)
[2019-06-22] MEDS: LORazepam 0.5 mg TAB (*) PO PRN ×2 (18:10→22:53)
[2019-06-22] MEDS: Enoxaparin 30 MG/0.3 ML SYR(*) SUBCUT SCH (22:14)
[2019-06-23 07:27] LABS: BUN/Creatinine Ratio 20.8 (8-20); Calcium 8.3 mg/dL (8.6-10.3); EGFR African American 155.6 (>60); EGFR Non-African American 128.6 (>60); Magnesium 1.7 mg/dL (1.9-2.7); Potassium 4.6 mmol/L (3.5-5.0)
[2019-06-23 07:29] LABS: ABS Eosinophils 0.1 10^3/ul (0-0.6); ABS Lymphocytes 0.9 10^3/ul (1.0-4.8); ABS Monocytes 0.5 10^3/ul (0-0.8); Eosinophil % 2.8 %; Hematocrit 30 % (35-47); Hemoglobin 10.5 g/dL (12.0-16.0); Lymphocyte % 18.4 %; Mean Corpuscular HGB Conc 35 g/dL (31-36); Mean Corpuscular Hemoglobin 41 pg (27-31); Mean Corpuscular Volume 119 fL (80-97); Mean Platelet Volume 8.4 fL (7.4-10.4); Platelet Count 89 10^3/uL (150-450); Red Blood Count 2.54 10^6 /uL (3.70-4.87); Red Cell Distribution Width 17 % (10-15); White Blood Count 5.1 10^3/uL (3.5-10.8)
[2019-06-23] MEDS: Mometasone/Formoter 200/5 MDI INH SCH ×2 (07:33→19:22)
[2019-06-23] MEDS: SPIRIVA Respimat (tiotropium) 2.5 mcg/inh Inhaler INH SCH (07:34)
[2019-06-23] MEDS: Albuterol HFA INHALER 8 gm MDI INH PRN (07:34)
[2019-06-23] MEDS: Multivitamins/Minerals TAB PO SCH (07:41)
[2019-06-23] MEDS: Potassium Chlor 20 meq TAB.ER PO SCH ×2 (07:42→21:22)
[2019-06-23] MEDS ORDERED: Magnesium Sulfate IV 3 GM in NS 0.9% 100 ml BAG 100 ML IVPB ONE (08:19)
[2019-06-23] MEDS ORDERED: Furosemide 20 mg/2 ml IV VIAL IV SLOW PU ONE (14:09)
[2019-06-23] MEDS: LORazepam 0.5 mg TAB (*) PO PRN ×2 (16:06→21:22)
[2019-06-23] MEDS: Nicotine GUM 2MG FRUIT FLAVOR PO PRN (21:22)
[2019-06-23] MEDS: Enoxaparin 30 MG/0.3 ML SYR(*) SUBCUT SCH (21:24)
[2019-06-24 06:49] LABS: ABS Eosinophils 0.1 10^3/ul (0-0.6); ABS Monocytes 0.5 10^3/ul (0-0.8); Eosinophil % 2.1 %; Hematocrit 30 % (35-47); Hemoglobin 10.6 g/dL (12.0-16.0); Lymphocyte % 16.9 %; Mean Corpuscular HGB Conc 36 g/dL (31-36); Mean Corpuscular Hemoglobin 42 pg (27-31); Mean Corpuscular Volume 119 fL (80-97); Mean Platelet Volume 8.5 fL (7.4-10.4); Nucleated Red Blood Cells % 0.1; Platelet Count 101 10^3/uL (150-450); Red Blood Count 2.51 10^6 /uL (3.70-4.87); Red Cell Distribution Width 17 % (10-15); White Blood Count 5.7 10^3/uL (3.5-10.8)
[2019-06-24 07:02] LABS: Calcium 8.4 mg/dL (8.6-10.3); EGFR African American 167.7 (>60); EGFR Non-African American 138.6 (>60); Magnesium 1.6 mg/dL (1.9-2.7); Potassium 4.5 mmol/L (3.5-5.0)
[2019-06-24] MEDS: Multivitamins/Minerals TAB PO SCH (08:36)
[2019-06-24] MEDS: Mometasone/Formoter 200/5 MDI INH SCH ×2 (08:37→19:50)
[2019-06-24] MEDS: Potassium Chlor 20 meq TAB.ER PO SCH ×2 (08:37→20:50)
[2019-06-24] MEDS: SPIRIVA Respimat (tiotropium) 2.5 mcg/inh Inhaler INH SCH (08:38)
[2019-06-24] MEDS: LORazepam 0.5 mg TAB (*) PO PRN ×2 (08:54→19:16)
[2019-06-24] MEDS ORDERED: Furosemide 40 mg/4 ml IV VIAL IV SLOW PU ONE (10:28)
[2019-06-24] MEDS: Nicotine GUM 2MG FRUIT FLAVOR PO PRN (19:16)
[2019-06-24] MEDS: Enoxaparin 30 MG/0.3 ML SYR(*) SUBCUT SCH (20:51)
[2019-06-25] MEDS: Albuterol HFA INHALER 8 gm MDI INH PRN (07:43)
[2019-06-25] MEDS: SPIRIVA Respimat (tiotropium) 2.5 mcg/inh Inhaler INH SCH (07:43)
[2019-06-25] MEDS: Mometasone/Formoter 200/5 MDI INH SCH (07:43)
[2019-06-25] MEDS: Multivitamins/Minerals TAB PO SCH (09:07)
[2019-06-25] MEDS: Potassium Chlor 20 meq TAB.ER PO SCH (09:07)
[2019-06-25 09:56] VITALS: BP 132/73
== END 2019-06-25 10:05 | DRG 191 ==
LOC: ED 14:38 → MEDTELE 17:33
PROVIDERS: ADMIT Internal Medicine; ATTEND Hospitalist

== ENCOUNTER 2019-08-23 10:37 | Inpatient (IN) ==
[2019-08-23] MEDS ORDERED: NS 0.9% 1000 ml BAG 2,000 ML IV ONE ×2 (11:16→11:49)
[2019-08-23 11:40] LABS: ABS Basophils 0.1 10^3/ul (0-0.2); ABS Eosinophils 0.1 10^3/ul (0-0.6); ABS Lymphocytes 0.9 10^3/ul (1.0-4.8); ABS Monocytes 0.6 10^3/ul (0-0.8); ABS Nucleated RBC 0.1 10^3/ul; Eosinophil % 1.4 %; Hematocrit 13 % (35-47); Hemoglobin 4.3 g/dL (12.0-16.0); Lymphocyte % 15.9 %; Mean Corpuscular HGB Conc 32 g/dL (31-36); Mean Corpuscular Hemoglobin 32 pg (27-31); Mean Corpuscular Volume 99 fL (80-97); Mean Platelet Volume 8.8 fL (7.4-10.4); Nucleated Red Blood Cells % 1.4; Platelet Count 142 10^3/uL (150-450); Red Blood Count 1.34 10^6 /uL (3.70-4.87); Red Cell Distribution Width 19 % (10-15); White Blood Count 5.8 10^3/uL (3.5-10.8)
[2019-08-23] MEDS ORDERED: Pantoprazole 80 mg in NS BAG 80 MG/250 ML BAG IV ONE (11:40)
[2019-08-23] MEDS ORDERED: Pantoprazole VIAL 40 MG VIAL IV ONE (11:40)
[2019-08-23 11:42] LABS: Activated Partial Thrombo Time 30.6 seconds (26.0-38.0); INR 1.26 (0.82-1.09)
[2019-08-23 11:53] LABS: ALT 7 U/L (7-52); AST 12 U/L (13-39); Albumin 3.1 g/dL (3.2-5.2); Albumin/Globulin Ratio 1.3 (1-3); Alkaline Phosphatase 72 U/L (34-104); Anion Gap 7 mmol/L (2-11); BUN/Creatinine Ratio 22.4 (8-20); Blood Urea Nitrogen 11 mg/dL (6-24); CO2 Carbon Dioxide 21 mmol/L (22-32); Calcium 8.5 mg/dL (8.6-10.3); Chloride 101 mmol/L (101-111); EGFR Non-African American 125.6 (>60); Globulin 2.4 g/dL (2-4); Glucose 95 mg/dL (70-100); Potassium 3.7 mmol/L (3.5-5.0); Sodium 129 mmol/L (135-145); Total Protein 5.5 g/dL (6.4-8.9); Troponin I 0.01 ng/mL (<0.03)
[2019-08-23 12:19] LABS: Alcohol, S < 10 mg/dL (<10)
[2019-08-23 13:39] LABS: Urine Appearance Cloudy; Urine Bilirubin Negative (Negative); Urine Blood 2+ (Negative); Urine Color Yellow; Urine Glucose Negative (Negative); Urine Ketones Negative (Negative); Urine Nitrite Positive (Negative); Urine Protein Negative (Negative); Urine Urobilinogen Negative (Negative)
[2019-08-23 13:45] LABS: Urine Bacteria 1+ (Absent); Urine Red Blood Cell Absent (Absent); Urine White Blood Cell Trace(0-5/hpf) (Absent)
[2019-08-23] MEDS ORDERED: Octreotide Acetate 100 mcg/ml 50 MCG in NS 0.9% 50 ML 50 ML IV ONE (14:00)
[2019-08-23] MEDS ORDERED: Lorazepam PYXIS KEY PRN (14:03)
[2019-08-23] MEDS: LORazepam 2 mg VIAL 1 ml IV PUSH PRN ×2 (14:33→20:17)
[2019-08-23] MEDS: Octreotide Acetate 500 MCG in NS 0.9% 100 ml BAG 100 ML IV SCH ×3 (15:13→22:36)
[2019-08-23 19:56] LABS: Hematocrit 25 % (35-47); Hemoglobin 8.2 g/dL (12.0-16.0)
[2019-08-23] MEDS: Pantoprazole 80 mg in NS BAG 80 MG/250 ML BAG IV SCH (22:36)
[2019-08-24] MEDS ORDERED: NS 0.9% 1000 ml BAG 1,000 ML IV ONE (00:59)
[2019-08-24 01:36] LABS: Hematocrit 22 % (35-47); Hemoglobin 7.2 g/dL (12.0-16.0); Mean Corpuscular HGB Conc 33 g/dL (31-36); Mean Corpuscular Hemoglobin 32 pg (27-31); Mean Corpuscular Volume 95 fL (80-97); Mean Platelet Volume 9.2 fL (7.4-10.4); Platelet Count 91 10^3/uL (150-450); Red Blood Count 2.28 10^6 /uL (3.70-4.87); Red Cell Distribution Width 17 % (10-15); White Blood Count 5.6 10^3/uL (3.5-10.8)
[2019-08-24 01:47] LABS: Urine Appearance Cloudy; Urine Bilirubin Negative (Negative); Urine Blood Negative (Negative); Urine Color Yellow; Urine Glucose Negative (Negative); Urine Ketones Trace (Negative); Urine Nitrite Positive (Negative); Urine Protein Negative (Negative); Urine Specific Gravity 1.015 (1.010-1.030); Urine Urobilinogen Negative (Negative)
[2019-08-24 01:56] LABS: Urine Bacteria 1+ (Absent); Urine Red Blood Cell Trace(0-2/hpf) (Absent); Urine White Blood Cell 3+(>20/hpf) (Absent)
[2019-08-24 05:52] LABS: INR 1.29 (0.82-1.09)
[2019-08-24 05:58] LABS: Hematocrit 25 % (35-47); Hemoglobin 8.7 g/dL (12.0-16.0); Mean Corpuscular HGB Conc 34 g/dL (31-36); Mean Corpuscular Hemoglobin 32 pg (27-31); Mean Corpuscular Volume 92 fL (80-97); Mean Platelet Volume 9.1 fL (7.4-10.4); Platelet Count 85 10^3/uL (150-450); Red Blood Count 2.76 10^6 /uL (3.70-4.87); Red Cell Distribution Width 18 % (10-15); White Blood Count 4.1 10^3/uL (3.5-10.8)
[2019-08-24 06:20] LABS: Albumin 2.8 g/dL (3.2-5.2); Albumin/Globulin Ratio 1.3 (1-3); Calcium 7.7 mg/dL (8.6-10.3); EGFR African American 148.5 (>60); EGFR Non-African American 122.7 (>60); Globulin 2.2 g/dL (2-4); Potassium 3.6 mmol/L (3.5-5.0)
[2019-08-24] MEDS: Pantoprazole 80 mg in NS BAG 80 MG/250 ML BAG IV SCH ×2 (08:22→21:33)
[2019-08-24] MEDS: Octreotide Acetate 500 MCG in NS 0.9% 100 ml BAG 100 ML IV SCH ×2 (09:27→21:51)
[2019-08-24] MEDS: LORazepam 2 mg VIAL 1 ml IV PUSH PRN ×4 (11:04→21:33)
[2019-08-25 05:55] LABS: Hematocrit 27 % (35-47); Hemoglobin 9.1 g/dL (12.0-16.0); Mean Corpuscular HGB Conc 34 g/dL (31-36); Mean Corpuscular Hemoglobin 31 pg (27-31); Mean Corpuscular Volume 92 fL (80-97); Mean Platelet Volume 9.2 fL (7.4-10.4); Platelet Count 77 10^3/uL (150-450); Red Blood Count 2.91 10^6 /uL (3.70-4.87); Red Cell Distribution Width 19 % (10-15)
[2019-08-25 06:02] LABS: INR 1.4 (0.82-1.09)
[2019-08-25 06:10] LABS: Albumin 2.9 g/dL (3.2-5.2); Albumin/Globulin Ratio 1.3 (1-3); BUN/Creatinine Ratio 12.8 (8-20); Calcium 7.8 mg/dL (8.6-10.3); EGFR African American 159.5 (>60); EGFR Non-African American 131.8 (>60); Globulin 2.3 g/dL (2-4); Potassium 3.4 mmol/L (3.5-5.0); Total Bilirubin 0.6 mg/dL (0.2-1.0); Total Protein 5.2 g/dL (6.4-8.9)
[2019-08-25] MEDS: Octreotide Acetate 500 MCG in NS 0.9% 100 ml BAG 100 ML IV SCH ×2 (09:38→22:04)
[2019-08-25] MEDS: Pantoprazole 80 mg in NS BAG 80 MG/250 ML BAG IV SCH ×2 (09:39→20:18)
[2019-08-25] MEDS: KCL 20 MEQ/100 ML IVPREMIX 20 MEQ/100 ML BAG IV ONE ×2 (09:39→11:47)
[2019-08-25] MEDS ORDERED: Potassium Chloride LIQUID 20 MEQ/15 ML LIQUID PO ONE (11:45)
[2019-08-25] MEDS: SPIRIVA Respimat (tiotropium) 2.5 mcg/inh Inhaler INH SCH (15:12)
[2019-08-25] MEDS ORDERED: fentaNYL 100 mcg/2 ml 50 MCG/ML VIAL ONE (16:38)
[2019-08-25] MEDS ORDERED: Midazolam 10 mg/10 ml VIAL 1 mg/ml 10 ml VIAL (10 mg) ONE (16:39)
[2019-08-25] MEDS: Mometasone/Formoter 200/5 MDI INH SCH (19:18)
[2019-08-26] MEDS: LORazepam 2 mg VIAL 1 ml IV PUSH PRN ×3 (05:49→20:06)
[2019-08-26 07:14] LABS: ABS Eosinophils 0.3 10^3/ul (0-0.6); ABS Lymphocytes 0.3 10^3/ul (1.0-4.8); ABS Monocytes 0.5 10^3/ul (0-0.8); Eosinophil % 6.8 %; Hematocrit 26 % (35-47); Hemoglobin 8.6 g/dL (12.0-16.0); Lymphocyte % 8.1 %; Mean Corpuscular HGB Conc 33 g/dL (31-36); Mean Corpuscular Hemoglobin 31 pg (27-31); Mean Corpuscular Volume 93 fL (80-97); Mean Platelet Volume 9.1 fL (7.4-10.4); Nucleated Red Blood Cells % 0.2; Platelet Count 76 10^3/uL (150-450); Red Cell Distribution Width 19 % (10-15); White Blood Count 4.3 10^3/uL (3.5-10.8)
[2019-08-26 07:18] LABS: INR 1.36 (0.82-1.09)
[2019-08-26 07:42] LABS: Albumin 2.7 g/dL (3.2-5.2); Albumin/Globulin Ratio 1.3 (1-3); BUN/Creatinine Ratio 15.4 (8-20); Calcium 7.7 mg/dL (8.6-10.3); EGFR African American 141.9 (>60); EGFR Non-African American 117.3 (>60); Globulin 2.1 g/dL (2-4); Potassium 3.5 mmol/L (3.5-5.0); Total Bilirubin 0.5 mg/dL (0.2-1.0); Total Protein 4.8 g/dL (6.4-8.9)
[2019-08-26 07:44] LABS: Polychromasia 1+
[2019-08-26] MEDS: Mometasone/Formoter 200/5 MDI INH SCH ×2 (08:06→20:33)
[2019-08-26] MEDS: SPIRIVA Respimat (tiotropium) 2.5 mcg/inh Inhaler INH SCH (08:06)
[2019-08-26] MEDS: Albuterol HFA INHALER 8 gm MDI INH PRN (08:25)
[2019-08-26] MEDS: Octreotide Acetate 500 MCG in NS 0.9% 100 ml BAG 100 ML IV SCH ×2 (10:54→10:59)
[2019-08-26] MEDS: Morphine 2 MG/ML SYRINGE IV PRN (20:06)
[2019-08-27] MEDS: Octreotide Acetate 500 MCG in NS 0.9% 100 ml BAG 100 ML IV SCH ×3 (01:17→21:16)
[2019-08-27 06:06] LABS: BUN/Creatinine Ratio 17.5 (8-20); Calcium 7.4 mg/dL (8.6-10.3); EGFR African American 192.1 (>60); EGFR Non-African American 158.7 (>60); Potassium 3.1 mmol/L (3.5-5.0)
[2019-08-27 06:20] LABS: ABS Eosinophils 0.3 10^3/ul (0-0.6); ABS Lymphocytes 0.7 10^3/ul (1.0-4.8); ABS Monocytes 0.4 10^3/ul (0-0.8); Eosinophil % 8.8 %; Hematocrit 26 % (35-47); Hemoglobin 8.4 g/dL (12.0-16.0); Lymphocyte % 24.9 %; Mean Corpuscular HGB Conc 32 g/dL (31-36); Mean Corpuscular Hemoglobin 31 pg (27-31); Mean Corpuscular Volume 95 fL (80-97); Mean Platelet Volume 8.9 fL (7.4-10.4); Nucleated Red Blood Cells % 0.5; Red Blood Count 2.74 10^6 /uL (3.70-4.87); Red Cell Distribution Width 19 % (10-15); White Blood Count 2.9 10^3/uL (3.5-10.8)
[2019-08-27 08:22] LABS: Platelet Count Platelets clumped. 10^3/uL (150-450)
[2019-08-27] MEDS: SPIRIVA Respimat (tiotropium) 2.5 mcg/inh Inhaler INH SCH (08:28)
[2019-08-27] MEDS: Mometasone/Formoter 200/5 MDI INH SCH ×2 (08:28→19:18)
[2019-08-27] MEDS: Hemorrhoidal OINT 1 TUBE PR PRN ×2 (10:11→13:46)
[2019-08-27] MEDS: LORazepam 2 mg VIAL 1 ml IV PUSH PRN ×2 (13:38→21:17)
[2019-08-27] MEDS ORDERED: Magnesium Sulf 4 GM/100 ML IV 4,000 MG/100 ML BAG IVPB ONE (16:03)
[2019-08-27] MEDS: KCL 20 MEQ/100 ML IVPREMIX 20 MEQ/100 ML BAG IV SCH ×3 (17:42→23:41)
[2019-08-28] MEDS ORDERED: KCL 20 MEQ/100 ML IVPREMIX 20 MEQ/100 ML BAG IV ONE
[2019-08-28] MEDS: LORazepam 2 mg VIAL 1 ml IV PUSH PRN ×3 (00:31→16:43)
[2019-08-28 06:21] LABS: ABS Eosinophils 0.3 10^3/ul (0-0.6); ABS Monocytes 0.5 10^3/ul (0-0.8); Eosinophil % 6.7 %; Hematocrit 27 % (35-47); Hemoglobin 8.9 g/dL (12.0-16.0); Lymphocyte % 24.5 %; Mean Corpuscular HGB Conc 33 g/dL (31-36); Mean Corpuscular Hemoglobin 30 pg (27-31); Mean Corpuscular Volume 92 fL (80-97); Mean Platelet Volume 9.7 fL (7.4-10.4); Nucleated Red Blood Cells % 0.1; Platelet Count 89 10^3/uL (150-450); Red Blood Count 2.94 10^6 /uL (3.70-4.87); Red Cell Distribution Width 19 % (10-15)
[2019-08-28 06:33] LABS: BUN/Creatinine Ratio 11.6 (8-20); Calcium 7.2 mg/dL (8.6-10.3); EGFR African American 176.7 (>60); Potassium 3.5 mmol/L (3.5-5.0)
[2019-08-28] MEDS: Mometasone/Formoter 200/5 MDI INH SCH ×2 (07:18→19:21)
[2019-08-28] MEDS: SPIRIVA Respimat (tiotropium) 2.5 mcg/inh Inhaler INH SCH (07:18)
[2019-08-28] MEDS: Octreotide Acetate 500 MCG in NS 0.9% 100 ml BAG 100 ML IV SCH ×2 (08:21→17:55)
[2019-08-28 08:47] LABS: Magnesium 1.5 mg/dL (1.9-2.7)
[2019-08-28] MEDS ORDERED: Magnesium Sulf 4 GM/100 ML IV 4,000 MG/100 ML BAG IVPB ONE (15:32)
[2019-08-29] MEDS: Octreotide Acetate 500 MCG in NS 0.9% 100 ml BAG 100 ML IV SCH ×2 (05:14→15:55)
[2019-08-29] MEDS: Mometasone/Formoter 200/5 MDI INH SCH ×2 (07:50→19:08)
[2019-08-29] MEDS: SPIRIVA Respimat (tiotropium) 2.5 mcg/inh Inhaler INH SCH (07:50)
[2019-08-29] MEDS: Albuterol HFA INHALER 8 gm MDI INH PRN (07:50)
[2019-08-29] MEDS: Hemorrhoidal OINT 1 TUBE PR PRN ×2 (11:59→20:40)
[2019-08-29] MEDS: LORazepam 2 mg VIAL 1 ml IV PUSH PRN ×3 (13:09→20:40)
[2019-08-29] MEDS: Morphine 2 MG/ML SYRINGE IV PRN (20:43)
[2019-08-30] MEDS: Octreotide Acetate 500 MCG in NS 0.9% 100 ml BAG 100 ML IV SCH ×4 (01:01→16:19)
[2019-08-30] MEDS: Mometasone/Formoter 200/5 MDI INH SCH ×2 (07:44→20:03)
[2019-08-30] MEDS: SPIRIVA Respimat (tiotropium) 2.5 mcg/inh Inhaler INH SCH (07:44)
[2019-08-30] MEDS: Hemorrhoidal OINT 1 TUBE PR PRN ×2 (14:52→20:52)
[2019-08-30] MEDS: LORazepam 2 mg VIAL 1 ml IV PUSH PRN ×2 (14:53→20:50)
[2019-08-31] MEDS: LORazepam 2 mg VIAL 1 ml IV PUSH PRN ×4 (04:10→20:06)
[2019-08-31] MEDS: Mometasone/Formoter 200/5 MDI INH SCH ×2 (07:31→20:25)
[2019-08-31] MEDS: SPIRIVA Respimat (tiotropium) 2.5 mcg/inh Inhaler INH SCH (07:31)
[2019-08-31 10:42] LABS: ABS Basophils 0.1 10^3/ul (0-0.2); ABS Eosinophils 0.3 10^3/ul (0-0.6); ABS Lymphocytes 1.1 10^3/ul (1.0-4.8); ABS Monocytes 0.4 10^3/ul (0-0.8); Eosinophil % 6.3 %; Hematocrit 30 % (35-47); Hemoglobin 9.8 g/dL (12.0-16.0); Lymphocyte % 22.3 %; Mean Corpuscular HGB Conc 33 g/dL (31-36); Mean Corpuscular Hemoglobin 30 pg (27-31); Mean Corpuscular Volume 91 fL (80-97); Mean Platelet Volume 8.8 fL (7.4-10.4); Platelet Count 110 10^3/uL (150-450); Red Cell Distribution Width 18 % (10-15); White Blood Count 4.7 10^3/uL (3.5-10.8)
[2019-08-31] MEDS: Hemorrhoidal OINT 1 TUBE PR PRN ×2 (16:05→20:15)
[2019-08-31] MEDS ORDERED: Magnesium Sulf 4 GM/100 ML IV 4,000 MG/100 ML BAG IVPB ONE (18:21)
[2019-08-31] MEDS ORDERED: Morphine 2 MG/ML SYRINGE IV PRN (20:30)
[2019-09-01] MEDS: Nicotine GUM 4MG FRUIT FLAVOR PO PRN ×3 (00:39→11:21)
[2019-09-01] MEDS: LORazepam 2 mg VIAL 1 ml IV PUSH PRN ×4 (00:40→11:21)
[2019-09-01] MEDS: Hemorrhoidal OINT 1 TUBE PR PRN (04:21)
[2019-09-01] MEDS: SPIRIVA Respimat (tiotropium) 2.5 mcg/inh Inhaler INH SCH (08:17)
[2019-09-01] MEDS: Mometasone/Formoter 200/5 MDI INH SCH (08:18)
[2019-09-01 11:02] VITALS: BP 122/61
== END 2019-09-01 11:40 | DRG 812 ==
LOC: ED 10:37 → ICU 12:37 → MED 08-24 15:52
PROVIDERS: ADMIT Internal Medicine Critical Care Medicine; ATTEND Internal Medicine

== ENCOUNTER 2020-08-06 11:17 | Inpatient (IN) ==
[2020-08-06] MEDS ORDERED: NS 0.9% 1000 ml BAG 500 ML IV ONE (11:35)
[2020-08-06] MEDS ORDERED: Morphine 4 MG/ML VIAL (1 ml) IV ONE (12:18)
[2020-08-06 12:54] LABS: ABS Lymphocytes 0.5 10^3/ul (1.0-4.8); ABS Monocytes 0.4 10^3/ul (0-0.8); ABS Neutrophils 14.3 10^3/ul (1.5-7.7); ABS Nucleated RBC 0.1 10^3/ul; Hematocrit 37 % (35-47); Hemoglobin 13.2 g/dL (12.0-16.0); Lymphocyte % 3.1 %; Mean Corpuscular HGB Conc 36 g/dL (31-36); Mean Corpuscular Hemoglobin 40 pg (27-31); Mean Corpuscular Volume 111 fL (80-97); Mean Platelet Volume 9.1 fL (7.4-10.4); Nucleated Red Blood Cells % 0.3; Platelet Count 121 10^3/uL (150-450); Red Blood Count 3.36 10^6 /uL (3.70-4.87); Red Cell Distribution Width 17 % (10-15); White Blood Count 15.3 10^3/uL (3.5-10.8)
[2020-08-06 13:08] LABS: ALT 25 U/L (7-52); AST 61 U/L (13-39); Albumin 3.2 g/dL (3.2-5.2); Alkaline Phosphatase 169 U/L (35-149); Blood Urea Nitrogen 9 mg/dL (6-24); C Reactive Protein 9.77 mg/L (<8.01); CO2 Carbon Dioxide 18 mmol/L (22-32); Calcium 8.8 mg/dL (8.6-10.3); Chloride 79 mmol/L (101-111); EGFR African American 144.7 (>60); EGFR Non-African American 119.6 (>60); Globulin 3.3 g/dL (2-4); Glucose 88 mg/dL (70-100); Magnesium 1.5 mg/dL (1.9-2.7); Potassium 4.5 mmol/L (3.5-5.0); Total Protein 6.5 g/dL (6.4-8.9)
[2020-08-06] MEDS ORDERED: NS 0.9% 1000 ml BAG 1,000 ML IV ONE (13:10)
[2020-08-06] MEDS ORDERED: Vancomycin 1,500 MG in NS 0.9% 250 ml 250 ML IVPB ONE (13:10)
[2020-08-06] MEDS ORDERED: Piperacillin/Tazobac ADVAN 3.375 GM in NS 0.9% 100 ml BAG 100 ML IV ONE (13:11)
[2020-08-06 13:18] LABS: Anion Gap 13 mmol/L (2-11); Sodium 110 mmol/L (135-145)
[2020-08-06] MEDS ORDERED: Iohexol 300 (CONTRAST) 10 ML SDV IV ONE (13:20)
[2020-08-06 13:28] LABS: Urine Appearance Cloudy; Urine Bilirubin Negative (Negative); Urine Blood 2+ (Negative); Urine Color Amber; Urine Glucose Negative (Negative); Urine Ketones Negative (Negative); Urine Nitrite Positive (Negative); Urine Protein 2+(100 mg/dL) (Negative); Urine Specific Gravity 1.014 (1.002-1.030); Urine Urobilinogen Negative (Negative)
[2020-08-06] MEDS ORDERED: Magnesium Sulf 4 GM/100 ML IV 4,000 MG/100 ML BAG IVPB ONE (13:28)
[2020-08-06] MEDS ORDERED: Iohexol 350 (CONTRAST) 500 ML MDV IV ONE (13:33)
[2020-08-06] MEDS ORDERED: NS 0.9% 250 ml 250 ML ONE ×2 (13:33→20:14)
[2020-08-06 13:36] LABS: Urine Bacteria 1+ (Absent); Urine Red Blood Cell 2+(6-10/hpf) (Absent); Urine Squamous Epithelial Cell Present (Absent); Urine White Blood Cell 3+(>20/hpf) (Absent)
[2020-08-06] MEDS ORDERED: Norepinephrine 16MCG/ML IVPRE 4,000 MCG/250 ML BAG IV ONE (13:47)
[2020-08-06] MEDS ORDERED: Norepinephrine 16MCG/ML IVPRE 4,000 MCG/250 ML BAG IV SCH (14:00)
[2020-08-06] MEDS ORDERED: Albuterol/Ipratropium NEB.SOL (2.5/0.5 MG) 3 ML NEB.SOLN INH PRN (15:32)
[2020-08-06 15:59] LABS: Creatine Kinase 287 U/L (10-223)
[2020-08-06 16:38] LABS: ALT 25 U/L (7-52); Albumin 2.8 g/dL (3.2-5.2); Alkaline Phosphatase 142 U/L (35-149); Blood Urea Nitrogen 9 mg/dL (6-24); Calcium 7.7 mg/dL (8.6-10.3); Chloride 88 mmol/L (101-111); EGFR Non-African American 134.7 (>60); Globulin 2.7 g/dL (2-4); Glucose 91 mg/dL (70-100); Total Protein 5.5 g/dL (6.4-8.9)
[2020-08-06 16:46] LABS: Anion Gap 12 mmol/L (2-11); Troponin I 1.14 ng/mL (<0.03)
[2020-08-06 16:50] LABS: CO2 Carbon Dioxide 14 mmol/L (22-32); Sodium 114 mmol/L (135-145)
[2020-08-06] MEDS ORDERED: Enoxaparin 40 MG/0.4 ML SYR SUBCUT SCH (17:00)
[2020-08-06] MEDS ORDERED: Propofol 10 mg/ml 100 ML BTL 100 ML ONE (17:03)
[2020-08-06] MEDS ORDERED: Succinylcholine 200 mg VIAL 20 mg/ml 10 ml VIAL (200 mg) ONE (17:03)
[2020-08-06] MEDS ORDERED: fentaNYL 250 mcg/5 ml 50 MCG/ML 5 ml VIAL (250 MCG) ONE (17:09)
[2020-08-06] MEDS ORDERED: Etomidate 40 mg/20 ml (2 MG/ML) 20 ml VIAL (40 mg) ONE (17:09)
[2020-08-06] MEDS: Albuterol/Ipratropium NEB.SOL (2.5/0.5 MG) 3 ML NEB.SOLN INH SCH ×3 (17:21→23:27)
[2020-08-06] MEDS ORDERED: Propofol 10 mg/ml 100 ML BTL 100 ML IV SCH (18:00)
[2020-08-06] MEDS ORDERED: fentaNYL 100 mcg/2 ml 50 MCG/ML VIAL ONE (18:11)
[2020-08-06] MEDS: Chlorhexidine MOUTHWASH 0.12% 15 ML UDC TOPICAL SCH ×2 (18:43→21:20)
[2020-08-06] MEDS ORDERED: fentaNYL 100 mcg/2 ml 50 MCG/ML VIAL IV SLOW PU PRN (18:54)
[2020-08-06] MEDS: Norepinephrine 16MCG/ML IVPRE 4,000 MCG/250 ML BAG IV SCH ×3 (19:04→21:19)
[2020-08-06] MEDS ORDERED: Phenylephrine IV 50 MG in NS 0.9% 250 ml 245 ML IV SCH (20:00)
[2020-08-06 20:56] LABS: Hematocrit 36 % (35-47); Mean Corpuscular HGB Conc 34 g/dL (31-36); Mean Corpuscular Hemoglobin 39 pg (27-31); Mean Corpuscular Volume 116 fL (80-97); Mean Platelet Volume 8.9 fL (7.4-10.4); Platelet Count 110 10^3/uL (150-450); Red Blood Count 3.07 10^6 /uL (3.70-4.87); Red Cell Distribution Width 18 % (10-15); White Blood Count 16.3 10^3/uL (3.5-10.8)
[2020-08-06] MEDS ORDERED: Famotidine IV 10 MG/ML 2 ml VIAL (20 mg) IV SLOW PU SCH (21:00)
[2020-08-06 21:04] LABS: Blood Urea Nitrogen 10 mg/dL (6-24); Calcium 7.5 mg/dL (8.6-10.3); Chloride 90 mmol/L (101-111); EGFR African American 113.4 (>60); EGFR Non-African American 93.7 (>60); Glucose 80 mg/dL (70-100); Potassium 4.2 mmol/L (3.5-5.0)
[2020-08-06 21:08] LABS: Anion Gap 10 mmol/L (2-11); CO2 Carbon Dioxide 14 mmol/L (22-32); Sodium 114 mmol/L (135-145); Troponin I 2.83 ng/mL (<0.03)
[2020-08-06] MEDS ORDERED: Thiamine 100 MG/ML 2 ml VIAL 500 MG in NS 0.9% 250 ml 250 ML IV SCH (22:00)
[2020-08-06 22:03] VITALS: BP 118/71
[2020-08-06] MEDS ORDERED: ZOSYN 3.375 GM x ONE DOSE over 30 miuntes IV (23:30)
[2020-08-06] MEDS ORDERED: Zosyn per Pharmacy NOTE FOLLOW UP SCH (23:45)
[2020-08-07 00:18] LABS: Troponin I 4.28 ng/mL (<0.03)
[2020-08-07] MEDS ORDERED: Heparin DRIP 25,000 UNITS BAG 25,000 UNITS/500 ML BAG IV SCH (00:30)
[2020-08-07] MEDS ORDERED: Sodium Bicarbonate 8.4% VIAL 1 MEQ/ML 50 ml VIAL (50 meq) IV ONE ×2 (00:52→00:58)
[2020-08-07] MEDS ORDERED: Sodium Bicarbonate 8.4% SYR 50 ml SYRINGE ONE ×2 (00:55→01:00)
[2020-08-07] MEDS ORDERED: Heparin 5000 UNITS/ML 1 mL VIAL IV SCH (01:00)
[2020-08-07] MEDS ORDERED: Sodium Bicarb 8.4% Vial 50 ML 100 MEQ in D5W 1000 ml BAG 1,000 ML IV SCH (01:00)
[2020-08-07 01:11] LABS: Urine Benzodiazepine Screen None Detected (None Detect); Urine Cannabinoids Screen None Detected (None Detect); Urine Opiates Screen Presumptive Positive (None Detect)
[2020-08-07 01:11] LABS: Activated Partial Thrombo Time 71.6 seconds (26.0-38.0); Fibrinogen 220.3 mg/dL (110.8-404.3)
[2020-08-07] MEDS: Norepinephrine 16MCG/ML IVPRE 4,000 MCG/250 ML BAG IV SCH ×2 (01:45→03:12)
[2020-08-07] MEDS ORDERED: Sodium Bicarbonate 8.4% SYR 50 ml SYRINGE IV ONE (02:28)
[2020-08-07 02:30] LABS: Creatine Kinase 462 U/L (10-223)
[2020-08-07 02:36] LABS: Troponin I 5.11 ng/mL (<0.03)
[2020-08-07 02:56] LABS: Blood Urea Nitrogen 10 mg/dL (6-24); Calcium 6.7 mg/dL (8.6-10.3); Chloride 95 mmol/L (101-111); EGFR African American 95.6 (>60); Sodium 122 mmol/L (135-145)
[2020-08-07 02:58] LABS: Potassium 5.5 mmol/L (3.5-5.0)
[2020-08-07 03:00] LABS: Anion Gap 15 mmol/L (2-11); CO2 Carbon Dioxide 12 mmol/L (22-32); Glucose 16 mg/dL (70-100)
[2020-08-07] MEDS ORDERED: Dextrose 50% VIAL 50 ml IV ONE ×2 (03:00)
[2020-08-07] MEDS ORDERED: Dextrose 50% Syringe 50 ml 25 GM/50 ML SYRINGE ONE ×2 (03:00→03:01)
[2020-08-07 04:03] LABS: Hematocrit 24 % (35-47); Mean Corpuscular HGB Conc 33 g/dL (31-36); Mean Corpuscular Hemoglobin 40 pg (27-31); Mean Corpuscular Volume 119 fL (80-97); Platelet Count 65 10^3/uL (150-450); Red Blood Count 2.02 10^6 /uL (3.70-4.87); Red Cell Distribution Width 18 % (10-15); White Blood Count 10.4 10^3/uL (3.5-10.8)
[2020-08-07] MEDS: Albuterol/Ipratropium NEB.SOL (2.5/0.5 MG) 3 ML NEB.SOLN INH SCH (04:05)
[2020-08-07] MEDS ORDERED: Morphine 2 MG/ML SYRINGE IV ONE (04:10)
[2020-08-07] MEDS ORDERED: LORazepam 2 mg VIAL 1 ml IV PUSH ONE ×2 (04:11→04:41)
[2020-08-07] MEDS ORDERED: Lorazepam PYXIS KEY PRN (04:11)
[2020-08-07 04:19] LABS: EGFR African American 82.5 (>60); EGFR Non-African American 68.2 (>60)
[2020-08-07 04:20] LABS: Calcium 6.1 mg/dL (8.6-10.3); Potassium 5.6 mmol/L (3.5-5.0)
[2020-08-07] MEDS ORDERED: Lorazepam PYXIS KEY ONE ×2 (04:20→04:26)
[2020-08-07] MEDS ORDERED: LORazepam 2 mg VIAL 1 ml ONE (04:27)
[2020-08-07] MEDS: Chlorhexidine MOUTHWASH 0.12% 15 ML UDC TOPICAL SCH (04:27)
[2020-08-07] MEDS ORDERED: Norepinephrine 8 mg in 500 mL NS (Pharmacy Admixed Drip) IV SCH (04:30)
[2020-08-07] MEDS ORDERED: LORazepam 2 mg VIAL 1 ml IV PUSH PRN (04:49)
[2020-08-07] MEDS ORDERED: Atropine 1% (ORAL/SL) 15 ML BTL SL PRN (04:50)
[2020-08-07] MEDS ORDERED: ZOSYN 3.375 GM Q8H per EXTENDED INFUSION IV SCH (06:00)
== END 2020-08-07 05:10 | disposition expired | DRG 871 ==
LOC: ED 11:17 → ICU 15:29
PROVIDERS: ADMIT Internal Medicine Critical Care Medicine; ATTEND Internal Medicine